=== PATIENT | male | born 1940 | race Caucasian/White ===

== ENCOUNTER 2021-05-27 21:32 | Observation (INO) ==
[2021-05-27] MEDS ORDERED: ACETAMINOPHEN 1,000 MG/100 ML VIAL IV STA (21:42)
[2021-05-27] MEDS ORDERED: SODIUM CHLORIDE 0.9% 1000ML 1,000 ML IV ONE (21:42)
[2021-05-27 22:21] LABS: Basophils # (auto) 0.02 K/uL (0-0.2); Basophils % (auto) 0.2 %; Eosinophils # (auto) 0.02 K/uL (0-0.5); Eosinophils % (auto) 0.2 %; Hematocrit (blood only) 35.8 % (42-52); Hemoglobin 11.2 g/dL (14.0-18.0); Immature Granulocytes # (auto) 0.01 K/uL (0.00-0.02); Immature Granulocytes % (auto) 0.1 %; Lymphocytes # (auto) 0.58 K/uL (1.2-3.4); Lymphocytes % (auto) 6.2 %; Mean Corpuscular Hemoglobin 23.7 pg (25-34); Mean Corpuscular Hgb Conc 31.3 g/dL (32-36); Mean Corpuscular Volume 75.8 fL (80-100); Mean Platelet Volume 9.9 fL (7.4-10.4); Monocytes # (auto) 1.18 K/uL (0.11-0.59); Monocytes % (auto) 12.6 %; Neutrophils # (auto) 7.52 K/uL (1.4-6.5); Neutrophils % (auto) 80.7 %; Platelet Count 265 K/uL (130-400); RDW Coefficient of Variation 18.3 % (11.5-14.5); RDW Standard Deviation 51.3 fL (36.4-46.3); Red Blood Count 4.72 M/uL (4.7-6.1); White Blood Count 9.33 K/uL (4.8-10.8)
[2021-05-27] MEDS ORDERED: PIPERACILL/TAZOBAC CONSULT ACTIVE PRN (22:30)
[2021-05-27] MEDS ORDERED: PIPERACILLIN/TAZOBACTAM 4.5 GM/120 ML BAG IV ONE (22:30)
[2021-05-27 22:33] LABS: INR 1.1 (0.9-1.1); Partial Thromboplastin Time 25.1 Seconds (21.0-31.0); Prothrombin Time 10.9 Seconds (9.0-12.0)
[2021-05-27 22:41] LABS: Albumin Level 3.5 gm/dl (3.4-5.0); BUN Creatinine Ratio 17.1 (10-20); Calcium 8.9 mg/dl (8.5-10.1); Creatinine Clr Calc Pharmacy 65.7 ml/min; Est GFR (Non-African American) 56.9 ml/min; Potassium 4.2 mmol/L (3.5-5.1)
[2021-05-27 22:55] LABS: Albumin Globulin Ratio 0.9 (0.9-2); Bilirubin,Total 0.5 mg/dl (0.2-1); Globulin 3.8 gm/dl (2.5-4.0); Total Protein 7.3 gm/dl (6.4-8.2); Troponin I 0.126 ng/ml (0-0.045)
[2021-05-27 23:02] LABS: Base Excess ABG 3.9 mEq/L (-9-1.8); HCO3 ABG 29 mmol/L (19-24); Oxygen Saturation ABG 96.6 % (90-95); PCO2 ABG 47 mmHg (35-46); PO2 ABG 85 mmHg (80-95); pH ABG 7.41 (7.35-7.45)
[2021-05-27 23:03] LABS: Allen Test Pos (Pos)
[2021-05-27] MEDS ORDERED: OPTIRAY 320 125ml IV ONE (23:45)
[2021-05-28 01:00] LABS: Appearance Urine Cloudy (Clear); Bacteria Urine Automated Negative (Negative); Bilirubin Urine Negative (Negative); Blood Urine 1+ (Negative); Color Urine Yellow; Glucose Urine UA Negative (Negative); Ketones Urine Negative (Negative); Leukocyte Esterase Urine 3+ (Negative); Nitrite Urine Positive (Negative); Specific Gravity Urine > 1.045 (1.000-1.030); Urobilinogen Urine Negative (Negative); WBC Urine Automated >30 /hpf (0-5); pH Urine 7.5 (4.5-7.5)
[2021-05-28 01:13] LABS: Protein Urine Trace (Negative)
[2021-05-28 01:14] LABS: Cast Urine Automated 0 /lpf (0-5)
[2021-05-28] MEDS ORDERED: DOXYCYCLINE HYCLATE 100 MG in DEXTROSE 5% 100 ML IV STA (01:21)
[2021-05-28] MEDS ORDERED: methylPREDNISolone 20 MG in SYRINGE 0 ML IV STA (01:21)
[2021-05-28] MEDS ORDERED: INSULIN GLARGINE SOLOSTAR 100 UNITS/ML 3 ML PEN SC STA (01:26)
[2021-05-28] MEDS ORDERED: SODIUM CHLORIDE 0.9% 1000ML 1,000 ML IV ONE (01:35)
--- NOTE | 2021-05-28 01:35 | History & Physical Report ---
Date of Service May 28, 2021 Assessment & Plan (1) Sepsis: Plan: Multifactorial : Complicated bronchitis Complicated UTI rule out obstructive uropathy given back pain complaints hx CAD status post stent Troponin elevation secondary to sepsis hypertension, slight elevated hyperlipidemia on statin Rx DM2 insulin requiring, elevated BSG, unknown baseline Anemia, unknown duration, stool FOBT done at the ER was negative. past tobacco abuse Medical telemetry Doxycycline for complicated bronchitis; steroid 1 dose, nebs RTC given hypoxemia Cefepime for complicated UTI CT abdomen pelvis RE back pain rule out obstructive uropathy Follow troponin, TTE if with progression Basal insulin, ISS BG goal 1 10-1 40, carb count coverage, check hemoglobin A1c Anemia work-up, transfuse PRBC if hemoglobin less than 8 and or for symptomatic anemia DVT prophylaxis. [employer] subcu Full code Text document was generated using [employer] voice recognition software. It may contain grammatical or spelling errors. Kindly contact undersigned for clarification of any documentation item in question. History of Present Illness Chief Complaint: Not sure as per patient Primary Care Provider: ANNY Romero History obtained from patient and records. Patient is a fair historian. Medical history significant for CAD status post stent, hypertension, hyperlipidemia, DM2 insulin requiring, past tobacco abuse. Patient not sure why he was brought to the emergency room. As per documentation, patient with fever, cough, malaise of 1 day. Antibiotics initiated at correction[facility] facility. Possible COVID-19 contacts. Patient noted to be hypoxemic at correctional facility. Patient complaining of achy back pain off a few days duration. Denies chest pain, unusual S OB. Denies black/bloody stools. At the ER, patient given Zosyn for sepsis. Medical History as above Surgical History : Appendectomy Family History : Heart disease Personal/Social history : Past tobacco abuse, no EtOH intake, shelter inmate Allergies Allergy/AdvReac Type Severity Reaction Status Date / Time Sulfa (Sulfonamide Allergy Unknown Verified 05/27/21 23:16 Antibiotics) Home Medications Medication Instructions Recorded Confirmed Type acetaminophen 500 mg tablet 1,000 mg PO TID PRN 05/27/21 05/27/21 History (Tylenol Extra Strength) amoxicillin 500 mg-potassium 1 tab PO BID 05/27/21 05/27/21 History clavulanate 125 mg tablet (Augmentin) aspirin 81 mg tablet,delayed 81 mg PO DAILY 05/27/21 05/27/21 History release azithromycin 250 mg tablet 250 mg PO DAILY 05/27/21 05/27/21 History bismuth subsalicylate 262 mg 1 tab PO BID 05/27/21 05/27/21 History chewable tablet (Pepto-Bismol) bumetanide 2 mg tablet 2 mg PO DAILY 05/27/21 05/27/21 History cholecalciferol (vitamin D3) 25 25 mcg PO DAILY 05/27/21 05/27/21 History mcg (1,000 unit) tablet (Vitamin D3) ciclesonide 160 mcg/actuation 2 puff INHALATION BID 05/27/21 05/27/21 History aerosol inhaler (Alvesco) clopidogrel 75 mg tablet (Plavix) 75 mg PO DAILY 05/27/21 05/27/21 History cyanocobalamin (vitamin B-12) 1,000 mcg SUBCUT MO 05/27/21 05/27/21 History 1,000 mcg/mL injection solution doxazosin 8 mg tablet (Cardura) 8 mg PO HS 05/27/21 05/27/21 History gabapentin 600 mg tablet 1,200 mg PO HS 05/27/21 05/27/21 History insulin NPH-regular human 100 12 unit SUBCUT BID 05/27/21 05/27/21 History unit/mL (70-30) subcutaneous cartridge insulin regular human 100 unit/mL 1 sliding scale dose SUBCUT 05/27/21 05/27/21 History injection solution (Novolin R USEASDIRECTD Regular U-100 Insulin) ipratropium 0.5 mg-albuterol 3 mg 3 ml INHALATION QID 05/27/21 05/27/21 History (2.5 mg base)/3 mL nebulization soln isosorbide mononitrate 30 mg 30 mg PO DAILY 05/27/21 05/27/21 History tablet,extended release 24 hr latanoprost 0.005 % eye drops 1 drp OPHTHALMIC (EYE) PM 05/27/21 05/27/21 Histo ry levalbuterol tartrate 45 2 inh INHALATION Q6H PRN 05/27/21 05/27/21 History mcg/actuation aerosol inhaler (Xopenex HFA) lisinopril 10 mg tablet 10 mg PO DAILY 05/27/21 05/27/21 History metoprolol tartrate 25 mg tablet 25 mg PO BID 05/27/21 05/27/21 History omeprazole 20 mg tablet,delayed 20 mg PO DAILY 05/27/21 05/27/21 History release ondansetron HCl 4 mg tablet 4 mg PO Q8H PRN 05/27/21 05/27/21 History (Zofran) rosuvastatin 10 mg tablet (Crestor) 10 mg PO DAILY 05/27/21 05/27/21 History vitamin B complex 1 tab PO BID 05/27/21 05/27/21 History zinc sulfate 220 mg capsule 220 mg PO DAILY 05/27/21 05/27/21 History Past Med/Surg History Medical History CHF (congestive heart failure) COPD (chronic obstructive pulmonary disease) Diabetes High blood pressure Surgical History No pertinent past surgical history Social History Smoking Status: Former smoker Tobacco Type: Cigarettes Hx Alcohol Use: No Hx Substance Use: No Preferred Language: Hebrew Communication Ability: Effective [employer] Supervisor Required: No Beliefs That Will Affect Care: None Current Living Situation: Other Current Living Situation Comment: [facility] Other Information That Helps Us Care for You: No Feels Safe at Home: Yes Safety Concerns: Feels Safe At This Time Assistive Devices: Walker and Wheelchair Review of Systems Review of Systems: As per HPI, all 10 systems reviewed, all other ROS negative Physical Exam Physical Exam: GENERAL: Comfortable, morbidly obese, hard of hearing, no respiratory distress SKIN: Pallor , warm HEENT: Pale palpebral conjunctivae, no ptosis, dry buccal mucosa, nasal cannula in place NECK : Supple, short neck, no tenderness CHEST : Decreased breath sounds, occasional expiratory wheezes, no tenderness HEART : RRR, no obvious murmurs ABDOMEN: Some distention, nontender RECTAL : Intact sphincter, dark brown stool (FOBT negative) EXTREMITIES : Minimal LE swelling, no LE tenderness, no other conspicuous deformities noted NEUROLOGIC : Coherent, no facial asymmetry, hard of hearing, no other gross focality Results & Data Results & Data ([facility]) Vital Signs (Past 12 Hours) Vital Signs Temp Pulse Resp BP Pulse Ox 05/28/21 01:00 82 17 134/94 97 05/28/21 00:30 81 15 153/85 H 98 05/28/21 00:00 79 19 167/101 H 98 05/27/21 23:31 103/70 05/27/21 23:00 155/79 H 97 05/27/21 22:30 147/90 H 95 05/27/21 22:17 37.7 C H 84 16 155/94 H 94 05/27/21 22:02 84 14 146/91 H 94 05/27/21 21:53 89 16 94 05/27/21 21:52 89 20 155/94 H 94 Laboratory Results Laboratory Results WBC 9.33 K/uL (4.8-10.8) 05/27/21 21:58 RBC 4.72 M/uL (4.7-6.1) 05/27/21 21:58 Hgb 11.2 g/dL (14.0-18.0) L 05/27/21 21:58 Hct 35.8 % (42-52) L 05/27/21 21:58 MCV 75.8 fL (80-100) L 05/27/21 21:58 MCH 23.7 pg (25-34) L 05/27/21 21:58 MCHC 31.3 g/dL (32-36) L 05/27/21 21:58 RDW Std Deviation 51.3 fL (36.4-46.3) H 05/27/21 21:58 RDW Coeff of Sandrita 18.3 % (11.5-14.5) H 05/27/21 21:58 Plt Count 265 K/uL (130-400) 05/27/21 21:58 MPV 9.9 fL (7.4-10.4) 05/27/21 21:58 Immature Gran % (Auto) 0.1 % 05/27/21 21:58 Neut % (Auto) 80.7 % 05/27/21 21:58 Lymph % (Auto) 6.2 % 05/27/21 21:58 [place] % (Auto) 12.6 % 05/27/21 21:58 Eos % (Auto) 0.2 % 05/27/21 21:58 Baso % (Auto) 0.2 % 05/27/21 21:58 Neut # (Auto) 7.52 K/uL (1.4-6.5) H 05/27/21 21:58 Lymph # (Auto) 0.58 K/uL (1.2-3.4) L 05/27/21 21:58 [place] # (Auto) 1.18 K/uL (0.11-0.59) H 05/27/21 21:58 Eos # (Auto) 0.02 K/uL (0-0.5) 05/27/21 21:58 Baso # (Auto) 0.02 K/uL (0-0.2) 05/27/21 21:58 Immature Gran # (Auto) 0.01 K/uL (0.00-0.02) 05/27/21 21:58 PT 10.9 Seconds (9.0-12.0) 05/27/21 21:58 INR 1.1 (0.9-1.1) 05/27/21 21:58 APTT 25.1 Seconds (21.0-31.0) 05/27/21 21:58 PTT Ratio 1.0 05/27/21 21:58 ABG pH 7.41 (7.35-7.45) 05/27/21 22:51 ABG pCO2 47 mmHg (35-46) H 05/27/21 22:51 ABG pO2 85 mmHg (80-95) 05/27/21 22:51 ABG HCO3 29 mmol/L (19-24) H 05/27/21 22:51 ABG O2 Saturation 96.6 % (90-95) H 05/27/21 22:51 ABG Base Excess 3.9 mEq/L (-9-1.8) H 05/27/21 22:51 Epifanio Test Pos (Pos) 05/27/21 22:51 Barometric Pressure 734.3 mm/Hg 05/27/21 22:51 Oxygen Given 6L 05/27/21 22:51 Sodium 138 mmol/L (136-145) 05/27/21 21:58 Potassium 4.2 mmol/L (3.5-5.1) 05/27/21 21:58 Chloride 103 mmol/L (98-107) 05/27/21 21:58 Carbon Dioxide 30 mmol/L (21-32) 05/27/21 21:58 Anion Gap 4.0 (3-11) 05/27/21 21:58 BUN 20 mg/dl (7-18) H 05/27/21 21:58 Creatinine 1.19 mg/dl (0.6-1.4) 05/27/21 21:58 Est Cr Clr Drug Dosing 65.7 ml/min 05/27/21 21:58 Est GFR ( Amer) 66.0 ml/min 05/27/21 21:58 Est GFR (Non-Af Amer) 56.9 ml/min 05/27/21 21:58 BUN/Creatinine Ratio 17.1 (10-20) 05/27/21 21:58 Glucose 161 mg/dl (70-99) H 05/27/21 21:58 Lactate 1.7 mmol/L (0.4-2.0) 05/27/21 21:58 Calcium 8.9 mg/dl (8.5-10.1) 05/27/21 21:58 Magnesium 2.0 mg/dl (1.8-2.4) 05/27/21 21:58 Total Bilirubin 0.5 mg/dl (0.2-1) 05/27/21 21:58 AST 21 U/L (15-37) 05/27/21 21:58 ALT 26 U/L (12-78) 05/27/21 21:58 Alkaline Phosphatase 50 U/L (45-117) 05/27/21 21:58 Troponin I 0.126 ng/ml (0-0.045) H* 05/27/21 21:58 Total Protein 7.3 gm/dl (6.4-8.2) 05/27/21 21:58 Albumin 3.5 gm/dl (3.4-5.0) 05/27/21 21:58 Globulin 3.8 gm/dl (2.5-4.0) 05/27/21 21:58 Albumin/Globulin Ratio 0.9 (0.9-2) 05/27/21 21:58 Procalcitonin 0.56 ng/ml (0-0.5) H 05/27/21 21:58 Urine Color Yellow 05/28/21 00:47 Urine Appearance Cloudy (Clear) A 05/28/21 00:47 Urine pH 7.5 (4.5-7.5) 05/28/21 00:47 Ur Specific [place] > 1.045 (1.000-1.030) H 05/28/21 00:47 Urine Protein Trace (Negative) H 05/28/21 00:47 Urine Glucose (UA) Negative (Negative) 05/28/21 00:47 Urine Ketones Negative (Negative) 05/28/21 00:47 Urine Blood 1+ (Negative) H 05/28/21 00:47 Urine Nitrite Positive (Negative) A 05/28/21 00:47 Urine Bilirubin Negative (Negative) 05/28/21 00:47 Urine Urobilinogen Negative (Negative) 05/28/21 00:47 Ur Leukocyte Esterase 3+ (Negative) H 05/28/21 00:47 Urine WBC (Auto) >30 /hpf (0-5) H 05/28/21 00:47 Urine RBC (Auto) 5-10 /hpf (0-4) H 05/28/21 00:47 U Hyaline Cast (Auto) 0 /lpf (0-5) 05/28/21 00:47 U Epithel Cells (Auto) 10-20 /lpf (0-5) H 05/28/21 00:47 Urine Bacteria (Auto) Negative (Negative) 05/28/21 00:47 Urine Yeast Not Reportable 05/28/21 00:47 COVID-19 Eval Order Covid19 at [facility] 05/27/21 21:50 SARS-CoV-2 (PCR) NEGATIVE (Negative) 05/27/21 21:[address] abdomen pelvis initial read: No evidence of acute pulmonaryembolism. No thoracic aortic aneurysm. Coronaryarteryatherosclerosis. No significant pericardial effusion. Moderate hiatal hernia. Emphysema. Minor right basilar atelectasis. No consolidation, effusion, or pneumothorax. No acute osseous findings. EKG as per my interpretation rate 85, NSR, RAD, no ischemia Code Status & VTE Plan VTE Prophylaxis Plan VTE Prophylaxis will be ordered: Yes (1) Sepsis Sepsis acute organ dysfunction status: unspecified Sepsis type: sepsis due to unspecified organism Qualified Code(s): A41.9 - Sepsis, unspecified organism
--- NOTE | 2021-05-28 03:21 | Emergency Department Note ---
History of Present Illness General Chief complaint: Fever Time Seen by Provider: 05/27/21 21:38 History of Present Illness Maximum Pain Intensity: 3 This 80-year-old presents presents to the ER complaining of fever, cough, malaise for the past day who sats are in the high 80s at the present and has received the J & J vaccine back in February Location: Generalized Quality: Weak Severity: Moderate Duration: Today Timing: Today Context: Long Term was concerned and sent him in Modifying factors: better with rest; worse with activity Patient states he does not normally wear oxygen. Patient denies chest pain, abdominal pain, vomiting, diarrhea, sore throat. Other people at the long-term have Covid currently. Home Medications Medication Instructions Recorded Confirmed Type acetaminophen 500 mg tablet 1,000 mg PO TID PRN 05/27/21 05/27/21 History (Tylenol Extra Strength) amoxicillin 500 mg-potassium 1 tab PO BID 05/27/21 05/27/21 History clavulanate 125 mg tablet (Augmentin) aspirin 81 mg tablet,delayed 81 mg PO DAILY 05/27/21 05/27/21 History release azithromycin 250 mg tablet 250 mg PO DAILY 05/27/21 05/27/21 History bismuth subsalicylate 262 mg 1 tab PO BID 05/27/21 05/27/21 History chewable tablet (Pepto-Bismol) bumetanide 2 mg tablet 2 mg PO DAILY 05/27/21 05/27/21 History cholecalciferol (vitamin D3) 25 25 mcg PO DAILY 05/27/21 05/27/21 History mcg (1,000 unit) tablet (Vitamin D3) ciclesonide 160 mcg/actuation 2 puff INHALATION BID 05/27/21 05/27/21 History aerosol inhaler (Alvesco) clopidogrel 75 mg tablet (Plavix) 75 mg PO DAILY 05/27/21 05/27/21 History cyanocobalamin (vitamin B-12) 1,000 mcg SUBCUT MO 05/27/21 05/27/21 History 1,000 mcg/mL injection solution doxazosin 8 mg tablet (Cardura) 8 mg PO HS 05/27/21 05/27/21 History gabapentin 600 mg tablet 1,200 mg PO HS 05/27/21 05/27/21 History insulin NPH-regular human 100 12 unit SUBCUT BID 05/27/21 05/27/21 History unit/mL (70-30) subcutaneous cartridge insulin regular human 100 unit/mL 1 sliding scale dose SUBCUT 05/27/21 05/27/21 History injection solution (Novolin R USEASDIRECTD Regular U-100 Insulin) ipratropium 0.5 mg-albuterol 3 mg 3 ml INHALATION QID 05/27/21 05/27/21 History (2.5 mg base)/3 mL nebulization soln isosorbide mononitrate 30 mg 30 mg PO DAILY 05/27/21 05/27/21 History tablet,extended release 24 hr latanoprost 0.005 % eye drops 1 drp OPHTHALMIC (EYE) PM 05/27/21 05/27/21 History levalbuterol tartrate 45 2 inh INHALATION Q6H PRN 05/27/21 05/27/21 History mcg/actuation aerosol inhaler (Xopenex HFA) lisinopril 10 mg tablet 10 mg PO DAILY 05/27/21 05/27/21 History metoprolol tartrate 25 mg tablet 25 mg PO BID 05/27/21 05/27/21 History omeprazole 20 mg tablet,delayed 20 mg PO DAILY 05/27/21 05/27/21 History release ondansetron HCl 4 mg tablet 4 mg PO Q8H PRN 05/27/21 05/27/21 History (Zofran) rosuvastatin 10 mg tablet (Crestor) 10 mg PO DAILY 05/27/21 05/27/21 History vitamin B complex 1 tab PO BID 05/27/21 05/27/21 History zinc sulfate 220 mg capsule 220 mg PO DAILY 05/27/21 05/27/21 History Allergies Allergy/AdvReac Type Severity Reaction Status Date / Time Sulfa (Sulfonamide Allergy Unknown Verified 05/27/21 23:16 Antibiotics) Past Med/Surg History Medical History CHF (congestive heart failure) COPD (chronic obstructive pulmonary disease) Diabetes High blood pressure Surgical History No pertinent past surgical history Social History Smoking Status: Former smoker Tobacco Type: Cigarettes Hx Alcohol Use: No Hx Substance Use: No Preferred Language: Tanzanian Communication Ability: Effective Mechanic Senior Required: No Beliefs That Will Affect Care: None Current Living Situation: Other Current Living Situation Comment: Long Term Other Information That Helps Us Care for You: No Feels Safe at Home: Yes Safety Concerns: Feels Safe At This Time Assistive Devices: Walker and Wheelchair Review of Systems A total of 10 systems reviewed and were otherwise negative Physical Exam Vital Signs Vital Signs - 24 hr 05/27/21 21:52 05/27/21 21:53 05/27/21 22:02 Temperature Temperature Source Pulse Rate 89 89 84 Pulse Rate from SpO2 Sensor 88 84 Pulse Rhythm Regular Pulse Strength Respiratory Rate 20 16 14 Respiratory Effort / Characteristics Respiratory Depth Respiratory Pattern Blood Pressure 155/94 H 146/91 H Blood Pressure Mean 114 109 Blood Pressure Position Pulse Oximetry 94 94 94 Oxygen Delivery Method Nasal Cannula Nasal Cannula Nasal Cannula Oxygen Flow Rate 4 4 4 Sepsis Recent Fever Within 48 Hours Sepsis New/Unexplained Change in Mental Status Sepsis Action Taken by Nursing 05/27/21 22:17 05/27/21 22:30 05/27/21 23:00 Temperature 37.7 C H Temperature Source Oral Pulse Rate 84 Pulse Rate from SpO2 Sensor 86 85 Pulse Rhythm Regular Pulse Strength Normal Respiratory Rate 16 Respiratory Effort / Characteristics Non-Labored Spontaneous Respiratory Depth Normal Respiratory Pattern Regular Blood Pressure 155/94 H 147/90 H 155/79 H Blood Pressure Mean 114 109 104 Blood Pressure Position Lying Pulse Oximetry 94 95 97 Oxygen Delivery Method Nasal Cannula Nasal Cannula Oxygen Flow Rate 4 4 Sepsis Recent Fever Within 48 Hours Yes Sepsis New/Unexplained Change in Mental Status No Sepsis Action Taken by Nursing No Action Required 05/27/21 23:30 05/27/21 23:31 05/28/21 00:00 Temperature Temperature Source Pulse Rate 79 Pulse Rate from SpO2 Sensor 80 Pulse Rhythm Pulse Strength Respiratory Rate 19 Respiratory Effort / Characteristics Non-Labored Respiratory Depth Respiratory Pattern Blood Pressure 103/70 167/101 H Blood Pressure Mean 81 123 Blood Pressure Position Pulse Oximetry 98 Oxygen Delivery Method Oxygen Flow Rate Sepsis Recent Fever Within 48 Hours Sepsis New/Unexplained Change in Mental Status Sepsis Action Taken by Nursing 05/28/21 00:30 05/28/21 01:00 Temperature Temperature Source Pulse Rate 81 82 Pulse Rate from SpO2 Sensor 82 82 Pulse Rhythm Pulse Strength Respiratory Rate 15 17 Respiratory Effort / Characteristics Respiratory Depth Respiratory Pattern Blood Pressure 153/85 H 134/94 Blood Pressure Mean 107 107 Blood Pressure Position Pulse Oximetry 98 97 Oxygen Delivery Method Oxygen Flow Rate Sepsis Recent Fever Within 48 Hours Sepsis New/Unexplained Change in Mental Status Sepsis Action Taken by Nursing VITALS: Vitals are noted on the nurse's note and reviewed by myself. Vital signs febrile and hypoxic. GENERAL: Elderly male in [facility], in no acute distress SKIN: Chronic venous stasis to the lower extremities, unchanged per patient, the rest of the skin was without rashes, or bruising. There is no tenting of the skin. Capillary reflex less than 2 seconds. HEAD: Normocephalic atraumatic. EARS: External auditory canals clear, tympanic membranes pearly banks without erythema or effusion bilaterally. EYES: Pupils equal round and reactive to light and accommodation. Conjunctivae without injection, sclerae without icterus. Extraocular movements intact. NOSE: Patent, turbinates without inflammation or discharge. MOUTH: Mucous membranes mildly dry. Pharynx without erythema or exudate. Uvula midline. Airway patent. Tongue does not deviate. NECK: Supple without nuchal rigidity. No lymphadenopathy. No thyromegaly. Cervical spine is nontender. No JVD. HEART: Regular rate and rhythm LUNGS: Clear to auscultation bilaterally without wheezes, rales or rhonchi. No retractions or accessory muscle use. ABDOMEN: Positive bowel sounds x 4. Normal tympanic percussion. Soft, nontender, without masses or organomegaly. Bone sign negative. No guarding or rebound tenderness. No CVA tenderness MUSCULOSKELETAL: No muscle atrophy noted. NEURO: Patient was alert and oriented to person place and time. Normal sensation to light and sharp touch. No focal neurological deficits. Course Administered Medications Aspirin (Aspirin 81 Mg Ectab) 81 mg PO DAILY [facility] Stop: 06/27/21 08:59 Last Admin: 05/28/21 09:03 Dose: 81 mg Documented by: [id number] Clopidogrel Bisulfate (Clopidogrel Bisulfate 75 Mg Tab) 75 mg PO DAILY [facility] Stop: 06/27/21 08:59 Last Admin: 05/28/21 09:03 Dose: 75 mg Documented by: [id number] Doxycycline Hyclate (Doxycycline Hyclate 100 Mg Cap) 100 mg PO BID MEDNOZA; Gary col Stop: 06/04/21 11:59 Last Admin: 05/28/21 09:02 Dose: 100 mg Documented by: [id number] Enoxaparin Sodium (Enoxaparin Inj 40 Mg/0.4 Ml Syr) 40 mg SQ QAM [facility] Stop: 06/27/21 08:59 Last Admin: 05/28/21 09:38 Dose: 40 mg Documented by: [id number] Sodium Chloride (Nss 1000ml) 1,000 mls @ 60 mls/hr IV .[id number] ONE Stop: 05/28/21 18:14 Last Admin: 05/28/21 05:20 Dose: 60 mls/hr Documented by: [id number] Cefepime HCl 2,000 mg/ Syringe 20 mls @ 5 mls/min IV Q8H [facility]; Protocol Stop: 06/04/21 04:59 Last Admin: 05/28/21 05:13 Dose: 5 mls/min Documented by: [id number] Insulin Aspart (Insulin Aspart 100 Units/Ml 3 Ml Pen) 0 units SC ACHS [facility] Stop: 06/27/21 04:59 Last Admin: 05/28/21 09:38 Dose: 9 units Documented by: [id number] Cosigned by: [id number] Admin: 05/28/21 05:44 Dose: 4 units Documented by: [id number] Cosigned by: [id number] Insulin Glargine (Insulin Glargine Solostar 100 Units/Ml 3 Ml Pen) 10 units SC BID [facility] Stop: 06/27/21 08:59 Last Admin: 05/28/21 09:39 Dose: 10 units Documented by: [id number] Cosigned by: [id number] Ipratropium George (Ipratropium [place] Neb Soln 0.02% 2.5 Ml Vial) 0.5 mg INH Q6R [facility] Stop: 06/27/21 06:59 Last Admin: 05/28/21 13:08 Dose: 0.5 mg Documented by: [id number] Admin: 05/28/21 07:31 Dose: 0.5 mg Documented by: [id number] Isosorbide Mononitrate (Isosorbide [place] Extended Rel 30 Mg Tabcr) 30 mg PO DAILY [facility] Stop: 06/27/21 08:59 Last Admin: 05/28/21 09:03 Dose: 30 mg Documented by: [id number] Levalbuterol HCl (Levalbuterol 1.25mg/0.5ml Neb) 1.25 mg INH Q6R [facility] Stop: 06/27/21 06:59 Last Admin: 05/28/21 13:08 Dose: 1.25 mg Documented by: [id number] Admin: 05/28/21 07:31 Dose: 1.25 mg Documented by: [id number] Lisinopril (Lisinopril 20 Mg Tab) 20 mg PO DAILY [facility] Stop: 06/27/21 06:44 Last Admin: 05/28/21 09:38 Dose: 20 mg Documented by: [id number] Metoprolol Tartrate (Metoprolol Tartrate 25 Mg Tab) 25 mg PO BID [facility] Stop: 06/27/21 05:29 Last Admin: 05/28/21 05:52 Dose: 25 mg Documented by: [id number] Pantoprazole Sodium (Pantoprazole 40 Mg Tab) 40 mg PO DAILY [facility]; Protocol Stop: 06/27/21 08:59 Last Admin: 05/28/21 09:01 Dose: 40 mg Documented by: [id number] Rosuvastatin Calcium (Rosuvastatin Calcium 10 Mg Tab) 10 mg PO DAILY [facility] Stop: 06/27/21 08:59 Last Admin: 05/28/21 09:02 Dose: 10 mg Documented by: [id number] Vitamin B Complex (Vitamin B Complex Tab) 1 tab PO DAILY [facility] Stop: 06/27/21 08:59 Last Admin: 05/28/21 09:02 Dose: 1 tab Documented by: [id number] Discontinued Medications Sodium Chloride (Nss 1000ml) 1,000 mls @ 999 mls/hr IV .[id number] ONE Stop: 05/27/21 22:42 Last Infusion: 05/27/21 23:30 Dose: 0 mls/hr Documented by: [id number] Admin: 05/27/21 22:02 Dose: 999 mls/hr Documented by: [id number] Acetaminophen (Ofirmev) 1,000 mg in 100 mls @ 400 mls/hr IV NOW STA Stop: 05/27/21 21:56 Last Infusion: 05/27/21 22:42 Dose: 0 mls/hr Documented by: [id number] Admin: 05/27/21 22:11 Dose: 400 mls/hr Documented by: [id number] Piperacillin Sod/Tazobactam Sod (Zosyn) 4.5 gm in 120 mls @ 240 mls/hr IV NOW ONE Stop: 05/27/21 22:59 Last Infusion: 08/03/21 23:36 Dose: 0 mls/hr Documented by: [id number] Admin: 05/27/21 23:06 Dose: 240 mls/hr Documented by: [id number] Methylprednisolone 20 mg/ (Syringe) 0.32 mls @ 1.5 mls/min IV NOW STA Stop: 05/28/21 01:22 Last Admin: 05/28/21 01:46 Dose: 1.5 mls/min Documented by: [id number] Doxycycline Hyclate 100 mg/ (Dextrose) 110 mls @ 50 mls/hr IV NOW STA Stop: 05/28/21 03:32 Last Infusion: 05/28/21 05:23 Dose: 0 mls/hr Documented by: [id number] Admin: 05/28/21 01:46 Dose: 50 mls/hr Documented by: [id number] Insulin Glargine (Insulin Glargine Solostar 100 Units/Ml 3 Ml Pen) 10 units SC NOW STA Stop: 05/28/21 01:27 Last Admin: 05/28/21 01:34 Dose: Not Given Documented by: [id number] Insulin Glargine (Insulin Glargine Solostar 100 Units/Ml 3 Ml Pen) 10 units SC ONE ONE Stop: 05/28/21 05:01 Last Admin: 05/28/21 05:47 Dose: 10 units Documented by: [id number] Cosigned by: [id number] Ioversol (Optiray 320 125ml) 120 ml IV ONCE ONE Stop: 05/27/21 23:46 Last Admin: 05/27/21 23:50 Dose: 120 ml Documented by: [id number] Medical Decision Making Medical Records Attestation: I reviewed the patient's medical records. Home Medications Current Medication List: was personally reviewed by me Laboratory Data Attestation: I reviewed the patient's lab results. Result diagrams: 05/28/21 05:31 05/28/21 05:31 Lab Results 05/27/21 05/27/21 05/27/21 Range/Units 21:50 21:50 21:58 WBC (4.8-10.8) K/uL RBC (4.7-6.1) M/uL Hgb (14.0-18.0) g/dL Hct (42-52) % MCV (80-100) fL MCH (25-34) pg MCHC (32-36) g/dL RDW Std Deviation (36.4-46.3) fL RDW Coeff of Sandrita (11.5-14.5) % Plt Count (130-400) K/uL MPV (7.4-10.4) fL Immature Gran % (Auto) % Neut % (Auto) % Lymph % (Auto) % [place] % (Auto) % Eos % (Auto) % Baso % (Auto) % Neut # (Auto) (1.4-6.5) K/uL Lymph # (Auto) (1.2-3.4) K/uL [place] # (Auto) (0.11-0.59) K/uL Eos # (Auto) (0-0.5) K/uL Baso # (Auto) (0-0.2) K/uL Immature Gran # (Auto) (0.00-0.02) K/uL PT (9.0-12.0) Seconds INR (0.9-1.1) APTT (21.0-31.0) Seconds PTT Ratio ABG pH (7.35-7.45) ABG pCO2 (35-46) mmHg ABG pO2 (80-95) mmHg ABG HCO3 (19-24) mmol/L ABG O2 Saturation (90-95) % ABG Base Excess (-9-1.8) mEq/L Epifanio Test (Pos) Barometric Pressure mm/Hg Oxygen Given Sodium 138 (136-145) mmol/L Potassium 4.2 (3.5-5.1) mmol/L Chloride 103 (98-107) mmol/L Carbon Dioxide 30 (21-32) mmol/L Anion Gap 4.0 (3-11) BUN 20 H (7-18) mg/dl Creatinine 1.19 (0.6-1.4) mg/dl Est Cr Clr Drug Dosing 65.7 ml/min Est GFR ( Amer) 66.0 ml/min Est GFR (Non-Af Amer) 56.9 ml/min BUN/Creatinine Ratio 17.1 (10-20) Glucose 161 H (70-99) mg/dl Estimat Average Glucose mg/dl Hemoglobin A1c (4.5-5.6) % Lactate (0.4-2.0) mmol/L Calcium 8.9 (8.5-10.1) mg/dl Magnesium 2.0 (1.8-2.4) mg/dl Total Bilirubin 0.5 (0.2-1) mg/dl AST 21 (15-37) U/L ALT 26 (12-78) U/L Alkaline Phosphatase 50 (45-117) U/L Troponin I 0.126 H* (0-0.045) ng/ml Total Protein 7.3 (6.4-8.2) gm/dl Albumin 3.5 (3.4-5.0) gm/dl Globulin 3.8 (2.5-4.0) gm/dl Albumin/Globulin Ratio 0.9 (0.9-2) Procalcitonin (0-0.5) ng/ml Urine Color Urine Appearance (Clear) Urine pH (4.5-7.5) Ur Specific [place] (1.000-1.030) Urine Protein (Negative) Urine Glucose (UA) (Negative) Urine Ketones (Negative) Urine Blood (Negative) Urine Nitrite (Negative) Urine Bilirubin (Negative) Urine Urobilinogen (Negative) Ur Leukocyte Esterase (Negative) Urine WBC (Auto) (0-5) /hpf Urine RBC (Auto) (0-4) /hpf U Hyaline Cast (Auto) (0-5) /lpf U Epithel Cells (Auto) (0-5) /lpf Urine Bacteria (Auto) (Negative) Urine Yeast COVID-19 Eval Order Covid19 at [facility] SARS-CoV-2 (PCR) NEGATIVE (Negative) 05/27/21 05/27/21 05/27/21 Range/Units 21:58 21:58 21:58 WBC 9.33 (4.8-10.8) K/uL RBC 4.72 (4.7-6.1) M/uL Hgb 11.2 L (14.0-18.0) g/dL Hct 35.8 L (42-52) % MCV 75.8 L (80-100) fL MCH 23.7 L (25-34) pg MCHC 31.3 L (32-36) g/dL RDW Std Deviation 51.3 H (36.4-46.3) fL RDW Coeff of Sandrita 18.3 H (11.5-14.5) % Plt Count 265 (130-400) K/uL MPV 9.9 (7.4-10.4) fL Immature Gran % (Auto) 0.1 % Neut % (Auto) 80.7 % Lymph % (Auto) 6.2 % [place] % (Auto) 12.6 % Eos % (Auto) 0.2 % Baso % (Auto) 0.2 % Neut # (Auto) 7.52 H (1.4-6.5) K/uL Lymph # (Auto) 0.58 L (1.2-3.4) K/uL [place] # (Auto) 1.18 H (0.11-0.59) K/uL Eos # (Auto) 0.02 (0-0.5) K/uL Baso # (Auto) 0.02 (0-0.2) K/uL Immature Gran # (Auto) 0.01 (0.00-0.02) K/uL PT 10.9 (9.0-12.0) Seconds INR 1.1 (0.9-1.1) APTT 25.1 (21.0-31.0) Seconds PTT Ratio 1.0 ABG pH (7.35-7.45) ABG pCO2 (35-46) mmHg ABG pO2 (80-95) mmHg ABG HCO3 (19-24) mmol/L ABG O2 Saturation (90-95) % ABG Base Excess (-9-1.8) mEq/L Epifanio Test (Pos) Barometric Pressure mm/Hg Oxygen Given Sodium (136-145) mmol/L Potassium (3.5-5.1) mmol/L Chloride (98-107) mmol/L Carbon Dioxide (21-32) mmol/L Anion Gap (3-11) BUN (7-18) mg/dl Creatinine (0.6-1.4) mg/dl Est Cr Clr Drug Dosing ml/min Est GFR ( Amer) ml/min Est GFR (Non-Af Amer) ml/min BUN/Creatinine Ratio (10-20) Glucose (70-99) mg/dl Estimat Average Glucose mg/dl Hemoglobin A1c (4.5-5.6) % Lactate (0.4-2.0) mmol/L Calcium (8.5-10.1) mg/dl Magnesium (1.8-2.4) mg/dl Total Bilirubin (0.2-1) mg/dl AST (15-37) U/L ALT (12-78) U/L Alkaline Phosphatase (45-117) U/L Troponin I (0-0.045) ng/ml Total Protein (6.4-8.2) gm/dl Albumin (3.4-5.0) gm/dl Globulin (2.5-4.0) gm/dl Albumin/Globulin Ratio (0.9-2) Procalcitonin 0.56 H (0-0.5) ng/ml Urine Color Urine Appearance (Clear) Urine pH (4.5-7.5) Ur Specific [place] (1.000-1.030) Urine Protein (Negative) Urine Glucose (UA) (Negative) Urine Ketones (Negative) Urine Blood (Negative) Urine Nitrite (Negative) Urine Bilirubin (Negative) Urine Urobilinogen (Negative) Ur Leukocyte Esterase (Negative) Urine WBC (Auto) (0-5) /hpf Urine RBC (Auto) (0-4) /hpf U Hyaline Cast (Auto) (0-5) /lpf U Epithel Cells (Auto) (0-5) /lpf Urine Bacteria (Auto) (Negative) Urine Yeast COVID-19 Eval Order SARS-CoV-2 (PCR) (Negative) 05/27/21 05/27/21 05/27/21 Range/Units 21:58 21:58 22:51 WBC (4.8-10.8) K/uL RBC (4.7-6.1) M/uL Hgb (14.0-18.0) g/dL Hct (42-52) % MCV (80-100) fL MCH (25-34) pg MCHC (32-36) g/dL RDW Std Deviation (36.4-46.3) fL RDW Coeff of Sandrita (11.5-14.5) % Plt Count (130-400) K/uL MPV (7.4-10.4) fL Immature Gran % (Auto) % Neut % (Auto) % Lymph % (Auto) % [place] % (Auto) % Eos % (Auto) % Baso % (Auto) % Neut # (Auto) (1.4-6.5) K/uL Lymph # (Auto) (1.2-3.4) K/uL [place] # (Auto) (0.11-0.59) K/uL Eos # (Auto) (0-0.5) K/uL Baso # (Auto) (0-0.2) K/uL Immature Gran # (Auto) (0.00-0.02) K/uL PT (9.0-12.0) Seconds INR (0.9-1.1) APTT (21.0-31.0) Seconds PTT Ratio ABG pH 7.41 (7.35-7.45) ABG pCO2 47 H (35-46) mmHg ABG pO2 85 (80-95) mmHg ABG HCO3 29 H (19-24) mmol/L ABG O2 Saturation 96.6 H (90-95) % ABG Base Excess 3.9 H (-9-1.8) mEq/L Epifanio Test Pos (Pos) Barometric Pressure 734.3 mm/Hg Oxygen Given 6L Sodium (136-145) mmol/L Potassium (3.5-5.1) mmol/L Chloride (98-107) mmol/L Carbon Dioxide (21-32) mmol/L Anion Gap (3-11) BUN (7-18) mg/dl Creatinine (0.6-1.4) mg/dl Est Cr Clr Drug Dosing ml/min Est GFR ( Amer) ml/min Est GFR (Non-Af Amer) ml/min BUN/Creatinine Ratio (10-20) Glucose (70-99) mg/dl Estimat Average Glucose 206 mg/dl Hemoglobin A1c 8.8 H (4.5-5.6) % Lactate 1.7 (0.4-2.0) mmol/L Calcium (8.5-10.1) mg/dl Magnesium (1.8-2.4) mg/dl Total Bilirubin (0.2-1) mg/dl AST (15-37) U/L ALT (12-78) U/L Alkaline Phosphatase (45-117) U/L Troponin I (0-0.045) ng/ml Total Protein (6.4-8.2) gm/dl Albumin (3.4-5.0) gm/dl Globulin (2.5-4.0) gm/dl Albumin/Globulin Ratio (0.9-2) Procalcitonin (0-0.5) ng/ml Urine Color Urine Appearance (Clear) Urine pH (4.5-7.5) Ur Specific [place] (1.000-1.030) Urine Protein (Negative) Urine Glucose (UA) (Negative) Urine Ketones (Negative) Urine Blood (Negative) Urine Nitrite (Negative) Urine Bilirubin (Negative) Urine Urobilinogen (Negative) Ur Leukocyte Esterase (Negative) Urine WBC (Auto) (0-5) /hpf Urine RBC (Auto) (0-4) /hpf U Hyaline Cast (Auto) (0-5) /lpf U Epithel Cells (Auto) (0-5) /lpf Urine Bacteria (Auto) (Negative) Urine Yeast COVID-19 Eval Order SARS-CoV-2 (PCR) (Negative) 05/28/21 Range/Units 00:47 WBC (4.8-10.8) K/uL RBC (4.7-6.1) M/uL Hgb (14.0-18.0) g/dL Hct (42-52) % MCV (80-100) fL MCH (25-34) pg MCHC (32-36) g/dL RDW Std Deviation (36.4-46.3) fL RDW Coeff of Sandrita (11.5-14.5) % Plt Count (130-400) K/uL MPV (7.4-10.4) fL Immature Gran % (Auto) % Neut % (Auto) % Lymph % (Auto) % [place] % (Auto) % Eos % (Auto) % Baso % (Auto) % Neut # (Auto) (1.4-6.5) K/uL Lymph # (Auto) (1.2-3.4) K/uL [place] # (Auto) (0.11-0.59) K/uL Eos # (Auto) (0-0.5) K/uL Baso # (Auto) (0-0.2) K/uL Immature Gran # (Auto) (0.00-0.02) K/uL PT (9.0-12.0) Seconds INR (0.9-1.1) APTT (21.0-31.0) Seconds PTT Ratio ABG pH (7.35-7.45) ABG pCO2 (35-46) mmHg ABG pO2 (80-95) mmHg ABG HCO3 (19-24) mmol/L ABG O2 Saturation (90-95) % ABG Base Excess (-9-1.8) mEq/L Epifanio Test (Pos) Barometric Pressure mm/Hg Oxygen Given Sodium (136-145) mmol/L Potassium (3.5-5.1) mmol/L Chloride (98-107) mmol/L Carbon Dioxide (21-32) mmol/L Anion Gap (3-11) BUN (7-18) mg/dl Creatinine (0.6-1.4) mg/dl Est Cr Clr Drug Dosing ml/min Est GFR ( Amer) ml/min Est GFR (Non-Af Amer) ml/min BUN/Creatinine Ratio (10-20) Glucose (70-99) mg/dl Estimat Average Glucose mg/dl Hemoglobin A1c (4.5-5.6) % Lactate (0.4-2.0) mmol/L Calcium (8.5-10.1) mg/dl Magnesium (1.8-2.4) mg/dl Total Bilirubin (0.2-1) mg/dl AST (15-37) U/L ALT (12-78) U/L Alkaline Phosphatase (45-117) U/L Troponin I (0-0.045) ng/ml Total Protein (6.4-8.2) gm/dl Albumin (3.4-5.0) gm/dl Globulin (2.5-4.0) gm/dl Albumin/Globulin Ratio (0.9-2) Procalcitonin (0-0.5) ng/ml Urine Color Yellow Urine Appearance Cloudy A (Clear) Urine pH 7.5 (4.5-7.5) Ur Specific [place] > 1.045 H (1.000-1.030) Urine Protein Trace H (Negative) Urine Glucose (UA) Negative (Negative) Urine Ketones Negative (Negative) Urine Blood 1+ H (Negative) Urine Nitrite Positive A (Negative) Urine Bilirubin Negative (Negative) Urine Urobilinogen Negative (Negative) Ur Leukocyte Esterase 3+ H (Negative) Urine WBC (Auto) >30 H (0-5) /hpf Urine RBC (Auto) 5-10 H (0-4) /hpf U Hyaline Cast (Auto) 0 (0-5) /lpf U Epithel Cells (Auto) 10-20 H (0-5) /lpf Urine Bacteria (Auto) Negative (Negative) Urine Yeast Not Reportable COVID-19 Eval Order SARS-CoV-2 (PCR) (Negative) Imaging Data Attestation: I personally reviewed and interpreted this imaging study as follows: Radiologist's Impression: Chest X-Ray 05/27/21 21:39 SINGLE VIEW CHEST CLINICAL HISTORY: Sepsis. FINDINGS: An AP, portable, upright chest radiograph is obtained. No prior studies are available for comparison at the time of dictation. The examination is degraded by portable technique, motion artifact, and apical lordotic positioning. There is a large hiatal hernia. The heart is enlarged noting atherosclerotic calcification of the thoracic aorta. The pulmonary vasculature is noncongested. Atelectasis is noted at the lung bases. No airspace consolidation or large pleural effusion is identified. Nonspecific interstitial thickening is noted. No pneumothorax is seen. The skeletal structures are osteopenic. The bony thorax is grossly intact. IMPRESSION: 1. Cardiomegaly with no acute cardiopulmonary abnormality. 2. Hiatal hernia. ACT 112: Negative or not required by law. Electronically signed by: Eduardo Daniels M.D. 05/28/2021 8:01 AM Chest CTA 05/27/21 22:30 CT ANGIOGRAPHY OF THE CHEST, PULMONARY EMBOLUS PROTOCOL CLINICAL HISTORY: Chest pain. Shortness of breath. Evaluate for pulmonary embolus. COMPARISON STUDY: Chest radiograph May 27, 2021. TECHNIQUE: Following IV administration of 120 mL of Optiray, helical axial images of the chest were obtained utilizing the pulmonary embolus protocol. Maximal intensity projections and sagittal and coronal reformats were viewed on an independent 3D workstation. IV contrast was administered without complicati on. Automated exposure control was utilized for the study. A dose lowering technique was utilized adhering to the principles of ALARA. CT DOSE: 1153.61 mGy.cm FINDINGS: No pulmonary emboli are identified although exam is mildly compromised by suboptimal opacification. There is moderate cardiomegaly and coronary artery calcification. No thoracic aortic dissection is noted. There is no pericardial effusion. A moderate sized hiatal hernia is noted. No pneumothorax or pleural effusion is noted. No consolidation to suggest pneumonia. There is moderate emphysema. A 4 mm nodule within the right middle lobe on image 154 is noted. This is probably benign. There is hepatic steatosis. IMPRESSION: 1. No pulmonary emboli identified although exam mildly compromised by suboptimal opacification. 2. Emphysema. 3. No consolidation to suggest pneumonia. 4. Moderate cardiomegaly and coronary artery calcification. 5. Hiatal hernia. 6. 4 mm right middle lobe nodule. This is likely benign. A follow-up chest CT in 6 months to ensure stability is recommended. ACT 112: Negative or not required by law. Electronically signed by: Gary Ovalle M.D. 05/28/2021 9:05 AM Abdomen/Pelvis CT 05/28/21 01:11 CT SCAN OF THE ABDOMEN AND PELVIS WITHOUT IV CONTRAST CLINICAL HISTORY: Sepsis. Back pain. COMPARISON STUDY: No priors. TECHNIQUE: CT scan of the abdomen and pelvis is performed from the lung bases to the proximal femora. Images are reviewed in the axial, sagittal, and coronal planes. IV contrast was not administered for this examination. A dose lowering t echnique was utilized adhering to the principles of ALARA. CT DOSE: 1747.02 mGy.cm FINDINGS: Lung bases: The heart is normal in size and without pericardial effusion. The coronary arteries are densely calcified. There is a moderate to large hiatal hernia. Emphysematous change is noted at the lung bases. There is bibasilar scarring/atelectasis. No airspace consolidation or pleural effusion is identified. Liver: The unenhanced liver is normal in size and contour. The liver demonstrates diffusely diminished attenuation consistent with hepatic steatosis. There is no intrahepatic biliary ductal dilatation. Gallbladder: Layering gallstones are suspected. There is no CT evidence of acute cholecystitis. Spleen: Normal in size and attenuation. Pancreas: Unremarkable. Adrenal glands: Unremarkable. Kidneys: The unenhanced kidneys demonstrate cortical atrophy and are without hydronephrosis. Excreted IV contrast fills the renal collecting systems and ureters. This degrades assessment for renal calculi. There is no evidence of contour deforming renal mass lesion. Abdominal vasculature: The abdominal aorta is normal in course and caliber noting advanced atherosclerotic calcification. Bowel: There is moderate colonic diverticulosis without CT evidence of acute diverticulitis. No bowel obstruction is seen. Fecal retention is noted throughout the colon. The appendix is not identified. Peritoneum: There is no intraperitoneal free air or abdominal ascites. There is a fat-containing umbilical hernia. Lymphadenopathy: None. Pelvic viscera: The prostate gland is diminutive and heterogeneous. The bladder wall appears thickened and trabeculated suggesting chronic outlet obstruction. The bladder is filled with excreted IV contrast. There are bilateral fat- containing inguinal hernias with evidence of previous bilateral inguinal he rniorrhaphy. Skeletal structures: The skeletal structures are osteopenic. There is moderate to advanced lumbosacral spondylosis. No lytic or blastic lesions are seen. IMPRESSION: 1. There are no acute infectious or inflammatory findings in the abdomen or pelvis. 2. There is no bowel obstruction. 3. Moderate colonic diverticulosis without CT evidence of acute diverticulitis. 4. Emphysema. 5. Hepatic steatosis. 6. Moderate to large hiatal hernia. 7. Additional findings as above. ACT 112: Negative or not required by law. Electronically signed by: Eduardo Daniels M.D. 05/28/2021 8:41 AM [facility] Narrative Prior records/ancillary studies reviewed. Triage Nursing notes reviewed. Additional history obtained from EMS. The patient's history was concerning for fever and low O2 sats. Differential diagnosis: Etiologies such as sepsis, UTI, pneumonia, metabolic, electrolyte abnormalities, cardiac sources, intracerebral event, toxicologic, neurologic, as well as others were entertained. Physical examination: As above. Pertinent findings were fever and low O2 sats. Vital signs reviewed and revealed low oxygen. ER treatment provided: IV fluid resuscitation with Normal saline solution, 1000 mL bolus. Blood and urine cultures Antibiotics: Zosyn An order was placed for continuous cardiac monitoring. The monitor shows a rate of 60-1 10 with a sinus rhythm. On reassessment the patient vital signs improved. Diagnostics interpretation by me: ECG: Ordered for sepsis EKG: Normal sinus, normal intervals, right axis deviation, rate of 83. Impression normal sinus rhythm with right axis deviation interpreted by myself I think arrhythmia is unlikely. EKG shows normal sinus rhythm with no interval abnormalities such as QT prolongation or WPW. There are no findings to suggest Brugada syndrome. Cardiac monitoring in the emergency department reveals no tachycardic or bradycardic dysrhythmia. Hypertrophic cardiomyopathy was cons idered but there are no clear historical elements pointing toward this. EKG is not suggestive. The QRS voltage is not extremely large and there are no suggestive Q waves. EKG #2 ordered for positive troponin EKG: Normal sinus, normal intervals, right axis deviation, rate of 83. Impression normal sinus rhythm with right axis deviation interpreted by myself I think arrhythmia is unlikely. EKG shows normal sinus rhythm with no interval abnormalities such as QT prolongation or WPW. There are no findings to suggest Brugada syndrome. Cardiac monitoring in the emergency department reveals no tachycardic or bradycardic dysrhythmia. Hypertrophic cardiomyopathy was considered but there are no clear historical elements pointing toward this. EKG is not suggestive. The QRS voltage is not extremely large and there are no suggestive Q waves. The labs revealed anemia on CBC. Chemistry panel revealed hyperglycemia. LFTs revealed. Cardiac enzymes were positive. Serum Lactate measurement was reviewed Blood and urine cultures are pending. Imaging studies: CTA CHEST: No evidence of acute pulmonary embolism. No thoracic aortic aneurysm. Coronary artery atherosclerosis. No significant pericardial effusion. Moderate hiatal hernia. Emphysema. Minor right basilar atelectasis. No consolidation, effusion, or pneumothorax. No acute osseous findings. Radiologist: Cary Diallo M.D. Consultation: A consultation was placed with the hospitalist. The case was discussed and diagnostics were reviewed. The patient was evaluated in the ER for further treatment. Exam and history seem consistent with sepsis with a positive troponin and urine infection. Patient started on antibiotics. Medicine was consulted. He will be evaluated for admission. Covid was negative. Oxygen improved with nasal cannula. He does have COPD. Patient will be admitted. Attending Attestation: Dustin Justice MD independently saw and evaluated this patient and agree with history and physical is otherwise documented by the physician assistant department manager. See their note for full details. Patient with some troponin elevation here and no hypoxia. History of smoking. No evidence on extensive work-up in ED of PE or pneumonia. WBC not elevated but procalcitonin somewhat elevated. Urine is questioning for infection. Covid test negative. Covered with broad-spectrum antibiotic and given aspirin. Patient denies any chest pain on exam. He is resting comfortably in bed on several liters of oxygen in no respiratory distress. Does have some mild chronic edema of the lower legs but again not clear evidence on imaging of CHF/pulmonary edema. Patient will be admitted for further care. Impression & Plan Sepsis, UTI (urinary tract infection), Elevated troponin Discharge Plan Visit Data Chief Complaint: Fever ED Provider: Severino Justice ED Midlevel Provider: Yasmeen Schultz Discharge Problem: Sepsis, UTI (urinary tract infection), Elevated troponin Patient Disposition: Admitted As Inpatient Condition: Fair Discharge Instructions Interventions: ED Discharge Assessment Last Done: 05/28/21 03:02 Discharge Problem: Sepsis Qualifiers: Sepsis type: sepsis due to unspecified organism Sepsis acute organ dysfunction status: unspecified Qualified Code(s): A41.9 - Sepsis, unspecified organism
[2021-05-28] MEDS ORDERED: DEXTROSE 50% 50 ML SYRINGE IV PRN (04:27)
[2021-05-28] MEDS ORDERED: GLUCAGON FOR INJ 1 MG VIAL SQ PRN (04:27)
[2021-05-28] MEDS ORDERED: ACETAMINOPHEN 325 MG TAB PO PRN (04:27)
[2021-05-28] MEDS ORDERED: GLUCOSE 40% GEL 15 GM TUBE PO PRN (04:27)
[2021-05-28] MEDS ORDERED: traMADol HCL 50 MG TABLET PO PRN (04:27)
[2021-05-28] MEDS ORDERED: GLUCOSE 10 TABS/TUBE PO PRN (04:27)
[2021-05-28] MEDS ORDERED: CEFEPIME CONSULT ACTIVE PRN (04:27)
[2021-05-28] MEDS ORDERED: CARBOHYDRATES FOR HYPOGLYCEMIA PO PRN (04:27)
[2021-05-28] MEDS ORDERED: INSULIN GLARGINE SOLOSTAR 100 UNITS/ML 3 ML PEN SC ONE (05:00)
[2021-05-28] MEDS: CEFEPIME 2,000 MG in SYRINGE 0 ML IV SCH ×3 (05:13→20:25)
[2021-05-28] MEDS: INSULIN ASPART 100 UNITS/ML 3 ML PEN SC SCH ×5 (05:44→20:25)
[2021-05-28 05:50] LABS: Basophils # (auto) 0.02 K/uL (0-0.2); Basophils % (auto) 0.2 %; Eosinophils # (auto) 0.01 K/uL (0-0.5); Eosinophils % (auto) 0.1 %; Hematocrit (blood only) 35.8 % (42-52); Immature Granulocytes # (auto) 0.01 K/uL (0.00-0.02); Immature Granulocytes % (auto) 0.1 %; Lymphocytes # (auto) 1.02 K/uL (1.2-3.4); Mean Corpuscular Hemoglobin 23.6 pg (25-34); Mean Corpuscular Hgb Conc 30.7 g/dL (32-36); Mean Corpuscular Volume 76.7 fL (80-100); Mean Platelet Volume 9.8 fL (7.4-10.4); Monocytes # (auto) 0.45 K/uL (0.11-0.59); Monocytes % (auto) 5.3 %; Neutrophils # (auto) 7.01 K/uL (1.4-6.5); Neutrophils % (auto) 82.3 %; Platelet Count 245 K/uL (130-400); RDW Coefficient of Variation 18.6 % (11.5-14.5); RDW Standard Deviation 52.4 fL (36.4-46.3); Red Blood Count 4.67 M/uL (4.7-6.1); Reticulocyte % 1.6 % (0.5-2.0); Reticulocytes # 0.07 10^6/uL (0.02-0.10); White Blood Count 8.52 K/uL (4.8-10.8)
[2021-05-28] MEDS: METOPROLOL TARTRATE 25 MG TAB PO SCH ×2 (05:52→20:25)
[2021-05-28 06:07] LABS: BUN Creatinine Ratio 14.8 (10-20); Calcium 8.7 mg/dl (8.5-10.1); Creatinine Clr Calc Pharmacy 63.1 ml/min; Est GFR (African American) 63.4 ml/min; Est GFR (Non-African American) 54.7 ml/min; Potassium 4.8 mmol/L (3.5-5.1)
[2021-05-28 06:14] LABS: Ferritin 28.3 ng/ml (8-388); Troponin I 0.121 ng/ml (0-0.045)
[2021-05-28] MEDS ORDERED: XOPENEX/ATROVENT 1.25mg/0.5MG NEB COMBO NEB SCH (07:00)
[2021-05-28 07:22] LABS: Estimated Average Glucose 206 mg/dl; Hemoglobin A1C 8.8 % (4.5-5.6)
[2021-05-28] MEDS: IPRATROPIUM BROMIDE NEB SOLN 0.02% 2.5 ML VIAL INH SCH ×3 (07:31→19:18)
[2021-05-28] MEDS: LEVALBUTEROL 1.25MG/0.5ML NEB INH SCH ×3 (07:31→19:18)
--- NOTE | 2021-05-28 08:02 | XRay Report ---
SINGLE VIEW CHEST CLINICAL HISTORY: Sepsis. FINDINGS: An AP, portable, upright chest radiograph is obtained. No prior studies are available for c omparison at the time of dictation. The examination is degraded by portable technique, motion artifac t, and apical lordotic positioning. There is a large hiatal hernia. The heart is enlarged noting athe rosclerotic calcification of the thoracic aorta. The pulmonary vasculature is noncongested. Atelectas is is noted at the lung bases. No airspace consolidation or large pleural effusion is identified. Non specific interstitial thickening is noted. No pneumothorax is seen. The skeletal structures are osteo penic. The bony thorax is grossly intact. IMPRESSION: 1. Cardiomegaly with no acute cardiopulmonary abnormality. 2. Hiatal hernia. ACT 112: Negative or not required by law. Electronically signed by: Eduardo Daniels M.D. 05/28/2021 8:01 AM
--- NOTE | 2021-05-28 08:42 | CT Scan Report ---
CT SCAN OF THE ABDOMEN AND PELVIS WITHOUT IV CONTRAST CLINICAL HISTORY: Sepsis. Back pain. COMPARISON STUDY: No priors. TECHNIQUE: CT scan of the abdomen and pelvis is performed from the lung bases to the proximal femora. Images are reviewed in the axial, sagittal, and coronal planes. IV contrast was not administered for this examination. A dose lowering technique was utilized adhering to the principles of ALARA. CT DOSE: 1747.02 mGy.cm FINDINGS: Lung bases: The heart is normal in size and without pericardial effusion. The coronary arteries are d ensely calcified. There is a moderate to large hiatal hernia. Emphysematous change is noted at the jimena ng bases. There is bibasilar scarring/atelectasis. No airspace consolidation or pleural effusion is i dentified. Liver: The unenhanced liver is normal in size and contour. The liver demonstrates diffusely diminishe d attenuation consistent with hepatic steatosis. There is no intrahepatic biliary ductal dilatation. Gallbladder: Layering gallstones are suspected. There is no CT evidence of acute cholecystitis. Spleen: Normal in size and attenuation. Pancreas: Unremarkable. Adrenal glands: Unremarkable. Kidneys: The unenhanced kidneys demonstrate cortical atrophy and are without hydronephrosis. Excreted IV contrast fills the renal collecting systems and ureters. This degrades assessment for renal calcu li. There is no evidence of contour deforming renal mass lesion. Abdominal vasculature: The abdominal aorta is normal in course and caliber noting advanced atheroscle rotic calcification. Bowel: There is moderate colonic diverticulosis without CT evidence of acute diverticulitis. No bowel obstruction is seen. Fecal retention is noted throughout the colon. The appendix is not identified. Peritoneum: There is no intraperitoneal free air or abdominal ascites. There is a fat-containing umbi lical hernia. Lymphadenopathy: None. Pelvic viscera: The prostate gland is diminutive and heterogeneous. The bladder wall appears thickene d and trabeculated suggesting chronic outlet obstruction. The bladder is filled with excreted IV cont rast. There are bilateral fat-containing inguinal hernias with evidence of previous bilateral inguina l herniorrhaphy. Skeletal structures: The skeletal structures are osteopenic. There is moderate to advanced lumbosacra l spondylosis. No lytic or blastic lesions are seen. IMPRESSION: 1. There are no acute infectious or inflammatory findings in the abdomen or pelvis. 2. There is no bowel obstruction. 3. Moderate colonic diverticulosis without CT evidence of acute diverticulitis. 4. Emphysema. 5. Hepatic steatosis. 6. Moderate to large hiatal hernia. 7. Additional findings as above. ACT 112: Negative or not required by law. Electronically signed by: Eduardo Daniels M.D. 05/28/2021 8:41 AM
[2021-05-28] MEDS ORDERED: lisinopril 10 MG TAB PO SCH (09:00)
[2021-05-28] MEDS ORDERED: METOPROLOL TARTRATE 25 MG TAB PO SCH (09:00)
[2021-05-28] MEDS: PANTOprazole 40 MG TAB PO SCH (09:01)
[2021-05-28] MEDS: VITAMIN B COMPLEX TAB PO SCH (09:02)
[2021-05-28] MEDS: DOXYCYCLINE HYCLATE 100 MG CAP PO SCH ×2 (09:02→20:24)
[2021-05-28] MEDS: ROSUVASTATIN CALCIUM 10 MG TAB PO SCH (09:02)
[2021-05-28] MEDS: ASPIRIN 81 MG ECTAB PO SCH (09:03)
[2021-05-28] MEDS: CLOPIDOGREL BISULFATE 75 MG TAB PO SCH (09:03)
[2021-05-28] MEDS: ISOSORBIDE MONO EXTENDED REL 30 MG TABCR PO SCH (09:03)
--- NOTE | 2021-05-28 09:07 | CT Scan Report ---
CT ANGIOGRAPHY OF THE CHEST, PULMONARY EMBOLUS PROTOCOL CLINICAL HISTORY: Chest pain. Shortness of breath. Evaluate for pulmonary embolus. COMPARISON STUDY: Chest radiograph May 27, 2021. TECHNIQUE: Following IV administration of 120 mL of Optiray, helical axial images of the chest were o btained utilizing the pulmonary embolus protocol. Maximal intensity projections and sagittal and cor onal reformats were viewed on an independent 3D workstation. IV contrast was administered without co mplication. Automated exposure control was utilized for the study. A dose lowering technique was ut ilized adhering to the principles of ALARA. CT DOSE: 1153.61 mGy.cm FINDINGS: No pulmonary emboli are identified although exam is mildly compromised by suboptimal opaci fication. There is moderate cardiomegaly and coronary artery calcification. No thoracic aortic dissec tion is noted. There is no pericardial effusion. A moderate sized hiatal hernia is noted. No pneumoth orax or pleural effusion is noted. No consolidation to suggest pneumonia. There is moderate emphysema . A 4 mm nodule within the right middle lobe on image 154 is noted. This is probably benign. There is hepatic steatosis. IMPRESSION: 1. No pulmonary emboli identified although exam mildly compromised by suboptimal opacification. 2. Emphysema. 3. No consolidation to suggest pneumonia. 4. Moderate cardiomegaly and coronary artery calcification. 5. Hiatal hernia. 6. 4 mm right middle lobe nodule. This is likely benign. A follow-up chest CT in 6 months to ensure s tability is recommended. ACT 112: Negative or not required by law. Electronically signed by: Gary Ovalle M.D. 05/28/2021 9:05 AM
[2021-05-28 09:23] LABS: Folate (Folic Acid) 13.4 ng/ml (>5.38)
[2021-05-28] MEDS: ENOXAPARIN INJ 40 MG/0.4 ML SYR SQ SCH (09:38)
[2021-05-28] MEDS: lisinopril 20 MG TAB PO SCH (09:38)
[2021-05-28] MEDS: INSULIN GLARGINE SOLOSTAR 100 UNITS/ML 3 ML PEN SC SCH ×2 (09:39→20:25)
--- NOTE | 2021-05-28 10:21 | Communication Note ---
Date of Service: May 28, 2021 Patient seen and examined this morning 80-year-old man with history of CAD status post stents, hypertension, DM type II who presents from presents for cough, fever and hypoxemia. Being managed for bronchitis and UTI. Patient seen and examined this morning. Reports dry cough, some dysuria yesterday and joints pains especially in the knee which is chronic. CT angio did not show any PE but showed emphysema, no consolidation but moderate cardiomegaly and coronary artery calcification as well as a 4 mm right middle lobe nodule Urinalysis suggestive of possible UTI with nitrites, esterase and pyuria -Bronchitis -Urinary tract infection Based on my review of patient's vitals and lab work, patient did not meet SIRS criteria for sepsis. Continue cefepime and doxycycline for now Patient has elevated troponin which is flat. EKG does not show any acute ST-T changes. Likely in the setting of CAD. Follow-up urine culture Was on 2 L of oxygen during my evaluation. Wean off oxygen as tolerated I agree with other plans as detailed in H&P this morning
[2021-05-28] MEDS: GABAPENTIN 600 MG TAB PO SCH (20:25)
[2021-05-28] MEDS: DOXAZosin MESYLATE 4 MG TAB PO SCH (20:25)
[2021-05-28] MEDS: LATANOPROST 0.005% OP SOLN 2.5 ML BTL OP SCH (20:26)
[2021-05-29] MEDS: IPRATROPIUM BROMIDE NEB SOLN 0.02% 2.5 ML VIAL INH SCH ×4 (00:31→18:58)
[2021-05-29] MEDS: LEVALBUTEROL 1.25MG/0.5ML NEB INH SCH ×4 (00:31→18:58)
[2021-05-29] MEDS: CEFEPIME 2,000 MG in SYRINGE 0 ML IV SCH ×3 (05:14→20:42)
[2021-05-29 06:17] LABS: Hematocrit (blood only) 33.7 % (42-52); Hemoglobin 10.3 g/dL (14.0-18.0); Mean Corpuscular Hemoglobin 23.4 pg (25-34); Mean Corpuscular Hgb Conc 30.6 g/dL (32-36); Mean Corpuscular Volume 76.6 fL (80-100); Platelet Count 242 K/uL (130-400); RDW Coefficient of Variation 18.4 % (11.5-14.5); RDW Standard Deviation 52.1 fL (36.4-46.3); White Blood Count 8.33 K/uL (4.8-10.8)
[2021-05-29 07:09] LABS: BUN Creatinine Ratio 16.9 (10-20); Calcium 8.5 mg/dl (8.5-10.1); Creatinine Clr Calc Pharmacy 70.2 ml/min; Est GFR (African American) 71.8 ml/min; Est GFR (Non-African American) 61.9 ml/min; Potassium 4.2 mmol/L (3.5-5.1)
[2021-05-29] MEDS: INSULIN ASPART 100 UNITS/ML 3 ML PEN SC SCH ×4 (09:26→20:42)
[2021-05-29] MEDS: INSULIN GLARGINE SOLOSTAR 100 UNITS/ML 3 ML PEN SC SCH ×2 (09:28→20:42)
[2021-05-29] MEDS: ASPIRIN 81 MG ECTAB PO SCH (09:33)
[2021-05-29] MEDS: CLOPIDOGREL BISULFATE 75 MG TAB PO SCH (09:34)
[2021-05-29] MEDS: VITAMIN B COMPLEX TAB PO SCH (09:35)
[2021-05-29] MEDS: ROSUVASTATIN CALCIUM 10 MG TAB PO SCH (09:36)
[2021-05-29] MEDS: DOXYCYCLINE HYCLATE 100 MG CAP PO SCH ×2 (09:36→20:43)
[2021-05-29] MEDS: METOPROLOL TARTRATE 25 MG TAB PO SCH ×2 (09:37→20:44)
[2021-05-29] MEDS: PANTOprazole 40 MG TAB PO SCH (09:37)
[2021-05-29] MEDS: ISOSORBIDE MONO EXTENDED REL 30 MG TABCR PO SCH (09:37)
[2021-05-29] MEDS: lisinopril 20 MG TAB PO SCH (09:38)
[2021-05-29] MEDS: ENOXAPARIN INJ 40 MG/0.4 ML SYR SQ SCH (09:40)
--- NOTE | 2021-05-29 13:12 | Hospitalist Progress Note ---
Date of Service May 29, 2021 Assessment & Plan (1) UTI (urinary tract infection): (2) Bronchitis: Plan: Symptoms improving. Weaned off oxygen. Currently on room air Continue nebs as needed. Urine culture growing GNR. Continue antibiotics and follow-up speciation and sensitivities. (3) Elevated troponin: Plan: Toponin elevated but flat 0.126-0.121 Denies any chest pain (4) Hypertension: Plan: Poorly controlled blood pressure Lisinopril will increase to 20 mg daily. We will continue this and monitor. Continue Imdur, metoprolol and Bumex [home medications May need more medications (5) DVT prophylaxis: Plan: Lovenox acute Admission and Anticipated Discharge Date Admission Date: May 28, 2021 Anticipated date of discharge: 05/30/21 Subjective 80-year-old man with history of CAD status post stents, hypertension, DM type II who presents from presents for cough, fever and hypoxemia. Being managed for bronchitis and UTI. Patient seen and examined. Reports significant improvement in cough. Has been weaned off oxygen. Still reports dysuria. Denies frequency, urgency, fevers or chills Review of Systems Constitutional: no fever, no chills, no body aches and no fatigue Eyes: no problem reported Ear, Nose, Mouth, Throat: no problem reported Respiratory: + cough; no dyspnea and no dyspnea on exertion Cardiovascular: no chest pain, no dyspnea, no palpitations and no edema Gastrointestinal: no abdominal pain, no nausea, no vomiting and no diarrhea/loose stools Genitourinary: + dysuria; no urinary frequency, no urinary hesitancy or no hematuria Musculoskeletal: no problem reported Neurologic: no dizziness and no headache(s) Psychiatric: no depression and no anxiety Physical Exam Constitutional: + well hydrated and + obese; no acute distress Eyes: PERRL, conjunctivae normal, anicteric sclerae ENMT: external ear and nose normal, oropharynx normal Respiratory: normal respiratory effort, lungs clear to auscultation Cardiovascular: Rate/Rhythm: regular rate and regular rhythm Heart Sounds: normal S1 and normal S2 No pedal edema Gastrointestinal (Abdomen): normal bowel sounds, soft, nontender, no hepatosplenomegaly Musculoskeletal: no cyanosis or clubbing, extremities motor strength 5/5 Neurologic: PERRL, EOMI, accommodation nl, no face palsy, no dysarthria Psychiatric: A+Ox3, euthymic affect Genitourinary: no CVA tenderness Results & Data Results & Data ([facility]) Vital Signs (Past 12 Hours) Vital Signs Temp Pulse Resp BP BP Pulse Ox 05/29/21 13:00 77 20 92 05/29/21 11:28 36.5 C 64 20 147/72 H 92 05/29/21 07:42 36.5 C 78 20 172/70 H 90 05/29/21 07:05 77 20 95 05/29/21 04:00 36.9 C 79 18 167/68 H 90 Laboratory Results Abnormal lab results 05/28/21 05/28/21 05/29/21 Range/Units 16:26 20:11 06:07 RBC 4.40 L (4.7-6.1) M/uL Hgb 10.3 L (14.0-18.0) g/dL Hct 33.7 L (42-52) % MCV 76.6 L (80-100) fL MCH 23.4 L (25-34) pg MCHC 30.6 L (32-36) g/dL RDW Std Deviation 52.1 H (36.4-46.3) fL RDW Coeff of Sandrita 18.4 H (11.5-14.5) % BUN (7-18) mg/dl Glucose (70-99) mg/dl POC Glucose 245 H 198 H (70-99) mg/dl 05/29/21 05/29/21 05/29/21 Range/Units 06:07 07:42 11:28 RBC (4.7-6.1) M/uL Hgb (14.0-18.0) g/dL Hct (42-52) % MCV (80-100) fL MCH (25-34) pg MCHC (32-36) g/dL RDW Std Deviation (36.4-46.3) fL RDW Coeff of Sandrita (11.5-14.5) % BUN 19 H (7-18) mg/dl Glucose 165 H (70-99) mg/dl POC Glucose 166 H 169 H (70-99) mg/dl
[2021-05-29] MEDS ORDERED: amLODIPine BESYLATE 5 MG TAB PO ONE (18:22)
[2021-05-29] MEDS: DOXAZosin MESYLATE 4 MG TAB PO SCH (20:43)
[2021-05-29] MEDS: LATANOPROST 0.005% OP SOLN 2.5 ML BTL OP SCH (20:43)
[2021-05-29] MEDS: GABAPENTIN 600 MG TAB PO SCH (20:43)
[2021-05-29] MEDS ORDERED: hydrALAZINE HCL 20 MG/ML VIAL IV PRN (23:23)
[2021-05-30] MEDS: LEVALBUTEROL 1.25MG/0.5ML NEB INH SCH ×3 (01:01→12:35)
[2021-05-30] MEDS: IPRATROPIUM BROMIDE NEB SOLN 0.02% 2.5 ML VIAL INH SCH ×3 (01:01→12:35)
[2021-05-30] MEDS: CEFEPIME 2,000 MG in SYRINGE 0 ML IV SCH ×2 (04:31→13:14)
--- NOTE | 2021-05-30 06:27 | Electrocardiogram Report ---
Test Reason : Blood Pressure : / mmHG Vent. Rate : 083 BPM Atrial Rate : 083 BPM P-R Int : 176 ms QRS Dur : 088 ms QT Int : 362 ms P-R-T Axes : 066 104 055 degrees QTc Int : 425 ms Normal sinus rhythm Rightward axis Borderline ECG No previous ECGs available Confirmed by Vasquez Torres ([id number]) on 05/30/2021 6:26:31 AM Referred By: Heather MCCORMICK Confirmed By:Vasquez Torres
--- NOTE | 2021-05-30 06:30 | Electrocardiogram Report ---
Test Reason : Blood Pressure : / mmHG Vent. Rate : 084 BPM Atrial Rate : 084 BPM P-R Int : 172 ms QRS Dur : 090 ms QT Int : 368 ms P-R-T Axes : 056 093 058 degrees QTc Int : 434 ms Normal sinus rhythm Rightward axis Borderline ECG When compared with ECG of 27-MAY-2021 22:00, No significant change was found Confirmed by Vasquez Torres ([id number]) on 05/30/2021 6:29:47 AM Referred By: Heather MCCORMICK Confirmed By:Vasquez Torres
[2021-05-30 06:47] LABS: Hematocrit (blood only) 35.8 % (42-52); Hemoglobin 11.1 g/dL (14.0-18.0); Mean Corpuscular Hemoglobin 23.1 pg (25-34); Mean Corpuscular Volume 74.6 fL (80-100); Mean Platelet Volume 9.1 fL (7.4-10.4); Platelet Count 260 K/uL (130-400); RDW Coefficient of Variation 18.2 % (11.5-14.5); RDW Standard Deviation 50.1 fL (36.4-46.3); White Blood Count 8.12 K/uL (4.8-10.8)
[2021-05-30 07:19] LABS: Calcium 8.9 mg/dl (8.5-10.1); Creatinine Clr Calc Pharmacy 71.7 ml/min; Est GFR (African American) 75.1 ml/min; Est GFR (Non-African American) 64.8 ml/min; Potassium 3.8 mmol/L (3.5-5.1)
[2021-05-30] MEDS: lisinopril 20 MG TAB PO SCH (08:20)
[2021-05-30] MEDS: ENOXAPARIN INJ 40 MG/0.4 ML SYR SQ SCH (08:20)
[2021-05-30] MEDS: DOXYCYCLINE HYCLATE 100 MG CAP PO SCH (08:21)
[2021-05-30] MEDS: ROSUVASTATIN CALCIUM 10 MG TAB PO SCH (08:21)
[2021-05-30] MEDS: CLOPIDOGREL BISULFATE 75 MG TAB PO SCH (08:21)
[2021-05-30] MEDS: PANTOprazole 40 MG TAB PO SCH (08:21)
[2021-05-30] MEDS: ISOSORBIDE MONO EXTENDED REL 30 MG TABCR PO SCH (08:21)
[2021-05-30] MEDS: ASPIRIN 81 MG ECTAB PO SCH (08:21)
[2021-05-30] MEDS: VITAMIN B COMPLEX TAB PO SCH (08:21)
[2021-05-30] MEDS: INSULIN ASPART 100 UNITS/ML 3 ML PEN SC SCH ×2 (08:23→12:39)
[2021-05-30] MEDS: INSULIN GLARGINE SOLOSTAR 100 UNITS/ML 3 ML PEN SC SCH (08:23)
[2021-05-30] MEDS ORDERED: amLODIPine BESYLATE 5 MG TAB PO SCH (09:00)
[2021-05-30] MEDS: METOPROLOL TARTRATE 25 MG TAB PO SCH (09:24)
--- NOTE | 2021-05-30 10:57 | Discharge Summary ---
Date of Service May 30, 2021 Admission HPI Per Admitting Provider History obtained from patient and records. Patient is a fair historian. Medical history significant for CAD status post stent, hypertension, hyperlipidemia, DM2 insulin requiring, past tobacco abuse. Patient not sure why he was brought to the emergency room. As per documentation, patient with fever, cough, malaise of 1 day. Antibiotics initiated at correctional facility. Possible COVID-19 contacts. Patient noted to be hypoxemic at correctional facility. Patient complaining of achy back pain off a few days duration. Denies chest pain, unusual S OB. Denies black/bloody stools. At the ER, patient given Zosyn for sepsis. 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 Admission Exam Per Admitting Provider GENERAL: Comfortable, morbidly obese, hard of hearing, no respiratory distress SKIN: Pallor , warm HEENT: Pale palpebral conjunctivae, no ptosis, dry buccal mucosa, nasal cannula in place NECK : Supple, short neck, no tenderness CHEST : Decreased breath sounds, occasional expiratory wheezes, no tenderness HEART : RRR, no obvious murmurs ABDOMEN: Some distention, nontender RECTAL : Intact sphincter, dark brown stool (FOBT negative) EXTREMITIES : Minimal LE swelling, no LE tenderness, no other conspicuous deformities noted NEUROLOGIC : Coherent, no facial asymmetry, hard of hearing, no other gross focality Principal Diagnosis Acute bronchitis Urinary tract infection Hypertension Discharge Exam Constitutional + well hydrated and + obese; no acute distress Eyes PERRL, conjunctivae normal, anicteric sclerae ENMT external ear and nose normal, oropharynx normal Respiratory normal respiratory effort, lungs clear to auscultation Cardiovascular Rate/Rhythm: regular rate and regular rhythm Heart Sounds: normal S1 and normal S2 Gastrointestinal (Abdomen) normal bowel sounds, soft, nontender, no hepatosplenomegaly Musculoskeletal no cyanosis or clubbing, extremities motor strength 5/5 Neurologic PERRL, EOMI, accommodation nl, no face palsy, no dysarthria Psychiatric A+Ox3, euthymic affect Genitourinary no CVA tenderness Discharge Data Allergies Allergy/AdvReac Type Severity Reaction Status Date / Time Sulfa (Sulfonamide Allergy Unknown Verified 05/27/21 23:16 Antibiotics) Consultations 05/28/21 00:33 ED Decision to Admit Stat Ordered Studies 05/27/21 22:30 CT angio chest PE protocol Urgent No pulmonary emboli are identified although exam is mildly compromised by suboptimal opacification. There is moderate cardiomegaly and coronary artery calcification. No thoracic aortic dissection is noted. There is no pericardial effusion. A moderate sized hiatal hernia is noted. No pneumothorax or pleural effusion is noted. No consolidation to suggest pneumonia. There is moderate emphysema. A 4 mm nodule within the right middle lobe on image 154 is noted. This is probably benign. There is hepatic steatosis. IMPRESSION: 1. No pulmonary emboli identified although exam mildly compromised by suboptimal opacification. 2. Emphysema. 3. No consolidation to suggest pneumonia. 4. Moderate cardiomegaly and coronary artery calcification. 5. Hiatal hernia. 6. 4 mm right middle lobe nodule. This is likely benign. A follow-up chest CT in 6 months to ensure stability is recommended. 05/28/21 01:11 CT abd pelvis wo con Urgent Lung bases: The heart is normal in size and without pericardial effusion. The coronary arteries are densely calcified. There is a moderate to large hiatal hernia. Emphysematous change is noted at the lung bases. There is bibasilar scarring/atelectasis. No airspace consolidation or pleural effusion is identified. Liver: The unenhanced liver is normal in size and contour. The liver demonstrates diffusely diminished attenuation consistent with hepatic steatosis. There is no intrahepatic biliary ductal dilatation. Gallbladder: Layering gallstones are suspected. There is no CT evidence of acute cholecystitis. Spleen: Normal in size and attenuation. Pancreas: Unremarkable. Adrenal glands: Unremarkable. Kidneys: The unenhanced kidneys demonstrate cortical atrophy and are without hydronephrosis. Excreted IV contrast fills the renal collecting systems and ureters. This degrades assessment for renal calculi. There is no evidence of contour deforming renal mass lesion. Abdominal vasculature: The abdominal aorta is normal in course and caliber noting advanced atherosclerotic calcification. Bowel: There is moderate colonic diverticulosis without CT evidence of acute diverticulitis. No bowel obstruction is seen. Fecal retention is noted throughout the colon. The appendix is not identified. Peritoneum: There is no intraperitoneal free air or abdominal ascites. There is a fat-containing umbilical hernia. Lymphadenopathy: None. Pelvic viscera: The prostate gland is diminutive and heterogeneous. The bladder wall appears thickened and trabeculated suggesting chronic outlet obstruction. The bladder is filled with excreted IV contrast. There are bilateral fat-cont aining inguinal hernias with evidence of previous bilateral inguinal herniorrhaphy. Skeletal structures: The skeletal structures are osteopenic. There is moderate to advanced lumbosacral spondylosis. No lytic or blastic lesions are seen. IMPRESSION: 1. There are no acute infectious or inflammatory findings in the abdomen or pelvis. 2. There is no bowel obstruction. 3. Moderate colonic diverticulosis without CT evidence of acute diverticulitis. 4. Emphysema. 5. Hepatic steatosis. 6. Moderate to large hiatal hernia. 7. Additional findings as above. Hospital Course (1) UTI (urinary tract infection): (2) Bronchitis: Symptoms improving. Reports dysuria is resolved Have been weaned off oxygen. Currently on room air. Oxygen saturation in low 90s Urine culture growing Klebsiella. Continue augmentin 875mg bid for 4 more days to complete treatment (3) Elevated troponin: Toponin elevated but flat 0.126-0.121 Denies any chest pain (4) Hypertension: Poorly controlled blood pressure during hospital stay with SBP >200 yeste rday Lisinopril was increased to 20 mg daily. Was also started on amlodipine 5mg daily BP is better controlled today with BP of 147/72 this morning Continue Imdur, metoprolol and Bumex [home medications I called the physician at the [facility]'s clinic and discussed patient's care and management Recommend assessing nocturnal oxygen requirement Also to continue BP management Total Time Total Time Spent Total Time Spent (In Minutes): 60 Discharge Plan Discharge Items Patient Disposition: [facility] Reason For Visit: Fever. Cough Discharge Diagnosis: Acute bronchitis Urinary tract infection Hypertension Condition on Discharge: Fair Activity: Resume your previous activity Non-emergency contact: Primary Care Provider Call non-emergency contact if: you have any medication questions Follow-up/Referrals: Heather MCCORMICK [Primary Care Provider] - Diet: Carb Consistent or DM2 and Heart Healthy Addtl Attending Provider Instructions: Mr Israel Zendejas were brought to the hospital for Fever, cough and was reported to have low oxygen level at the correctional facility. You were evaluated and treated for acute bronchitis and urinary tract infection. You were weaned off oxygen. Please take augmentin for next 4 days to complete treatment. However, your doctor will need you to get a sleep study or nocturnal pulse oximetry to assess oxygen requirement at bedtime Your blood pressure was poorly controlled during your hospital stay and appropriate adjustments were made. Your lisinopril was increased to 20mg daily and you were started on amlodipine 5mg daily. Please ensure follow up with your Primary Doctor at the facility. Pending Studies at Discharge: No Stand-Alone Forms: My [facility] Skilled Items Patient informed of condition?: Yes Discharge Level of Care: Other Communicable Disease: No Discharge Prognosis: Stable Lines: None Urinary Catheter: No Medications and DC Order Prescriptions: New amoxicillin-pot clavulanate [Augmentin] 875-125 mg tablet 1 tab PO BID 4 Days Qty: 8 RF: 0 amlodipine [Norvasc] 5 mg Tablet 5 mg PO QAM Qty: 30 RF: 0 Continued latanoprost 0.005 % Drops 1 drp OPHTHALMIC (EYE) PM RF: 0 gabapentin 600 mg Tablet 1,200 mg PO HS RF: 0 ipratropium-albuterol 0.5 mg-3 mg(2.5 mg base)/3 mL Solution For Nebulization 3 ml INHALATION QID RF: 0 bumetanide 2 mg Tablet 2 mg PO DAILY RF: 0 ondansetron HCl [Zofran] 4 mg Tablet 4 mg PO Q8H PRN (Reason: Nausea) RF: 0 isosorbide mononitrate 30 mg Tablet Extended Release 24 Hr 30 mg PO DAILY RF: 0 clopidogrel [Plavix] 75 mg Tablet 75 mg PO DAILY RF: 0 aspirin 81 mg Tablet,Delayed Release (Dr/Ec) 81 mg PO DAILY RF: 0 acetaminophen [Tylenol Extra Strength] 500 mg Tablet 1,000 mg PO TID PRN (Reason: Pain) RF: 0 doxazosin [Cardura] 8 mg Tablet 8 mg PO HS RF: 0 cyanocobalamin (vitamin B-12) 1,000 mcg/mL Solution 1,000 mcg SUBCUT MO RF: 0 Novolin R Regular U-100 Insuln 100 unit/mL Solution 1 sliding scale dose SUBCUT USEASDIRECTD RF: 0 bismuth subsalicylate [Pepto-Bismol] 262 mg Tablet,Chewable 1 tab PO BID RF: 0 vitamin B complex Tablet 1 tab PO BID RF: 0 zinc sulfate 220 mg Capsule 220 mg PO DAILY RF: 0 insulin NPH and regular human 100 unit/mL (70-30) Cartridge 12 unit SUBCUT BID RF: 0 rosuvastatin [Crestor] 10 mg Tablet 10 mg PO DAILY RF: 0 metoprolol tartrate 25 mg Tablet 25 mg PO BID RF: 0 levalbuterol tartrate [Xopenex HFA] 45 mcg/actuation Hfa Aerosol Inhaler 2 inh INHALATION Q6H PRN (Reason: Shortness Of Breath Or Wheezing) RF: 0 cholecalciferol (vitamin D3) [Vitamin D3] 25 mcg (1,000 unit) Tablet 25 mcg PO DAILY RF: 0 omeprazole 20 mg Tablet,Delayed Release (Dr/Ec) 20 mg PO DAILY RF: 0 Alvesco 160 mcg/actuation Hfa Aerosol Inhaler 2 puff INHALATION BID RF: 0 Changed lisinopril 10 mg Tablet 20 mg PO DAILY Qty: 60 RF: 0 Discontinued azithromycin 250 mg Tablet 250 mg PO DAILY RF: 0 amoxicillin-pot clavulanate [Augmentin] 500-125 mg Tablet 1 tab PO BID RF: 0 Discharge Orders: Discharge Order (Routine); Ordered 05/30/21 Ordered By: Montse Souza Admission Data Admit Date/Time: 05/28/21 01:21 Attending Provider: Montse Souza I. Admit Provider: Mark Jacobs Primary Care Provider: Heather MCCORMICK Other Providers: Mark Jacobs Other Interventions: Discharge Summary Assessment (RN) Last Done: 05/30/21 11:18
== END 2021-05-30 17:15 | DRG 202 ==
LOC: ED 21:32 → INTOOBSV 05-28 01:21 → 2N 05-28 01:21

== ENCOUNTER 2022-01-08 11:27 | Inpatient (IN) ==
[2022-01-08] MEDS ORDERED: SODIUM CHLORIDE 0.9% 1000ML 1,000 ML IV STA (12:02)
[2022-01-08] MEDS ORDERED: SODIUM CHLORIDE 0.9% 500 ML IV STA (12:02)
[2022-01-08 12:12] LABS: Basophils # (auto) 0.02 K/uL (0-0.2); Basophils % (auto) 0.2 %; Eosinophils # (auto) 0.17 K/uL (0-0.5); Immature Granulocytes # (auto) 0.02 K/uL (0.00-0.02); Immature Granulocytes % (auto) 0.2 %; Lymphocytes # (auto) 1.32 K/uL (1.2-3.4); Lymphocytes % (auto) 15.5 %; Mean Corpuscular Hemoglobin 28.4 pg (25-34); Mean Corpuscular Hgb Conc 32.5 g/dL (32-36); Mean Corpuscular Volume 87.3 fL (80-100); Mean Platelet Volume 10.9 fL (7.4-10.4); Monocytes % (auto) 12.9 %; Neutrophils # (auto) 5.91 K/uL (1.4-6.5); Neutrophils % (auto) 69.2 %; Platelet Count 235 K/uL (130-400); RDW Coefficient of Variation 12.9 % (11.5-14.5); RDW Standard Deviation 41.4 fL (36.4-46.3); Red Blood Count 4.58 M/uL (4.7-6.1); White Blood Count 8.54 K/uL (4.8-10.8)
--- NOTE | 2022-01-08 12:14 | Emergency Department Note ---
Impression & Plan Acute hypotension, Abdominal pain, Diarrhea, SOB (shortness of breath), DONNIE (acute kidney injury), UTI (urinary tract infection) ED Provider Note INFORMANT: Patient and EMS ED PROVIDER(S): Nelson Obando MD CHIEF COMPLAINT: Hypotension PLAN: Disposition: Admitted Condition: Good Outpatient prescription management: none Referral: None MEDICAL DECISION MAKING: Patient presented emergency room after episode of altered mental status with bradycardia, hypotension and hypoxia. Vital signs were improved after fluid bolus from EMS. Patient mental status improved as well. Patient CBC was unremarkable. Chemistry panel reveals a mild DONNIE. Chest x-ray was unremarkable. CT scan of the abdomen pelvis concerning for cystitis. Blood cultures and lactate performed. UTI found on urinalysis. Additional hydration given. Patient was treated with IV Rocephin. In light of the hypotensive episode and change in mental status that occurred earlier further management in the hospital was deemed appropriate. Consultation was made with the [facility]. Patient was evaluated in the ER and admitted for further management. Triage Nursing notes reviewed and agree them. Vital Signs: reviewed and remarkable for no significant abnormalities Differential diagnosis: Appendicitis, infections, diverticulitis, UTI, obstruction, cardiac sources, pneumonia, mesenteric ischemia, aortic pathology, inflammatory bowel disease, renal colic, PUD, pancreatitis, biliary pathology, hernia, volvulus, constipation, as well as other pathologies. Diagnostics interpreted by me: ECG: Twelve-lead ECG reveals sinus bradycardia 56 bpm. Rightward axis. No ST elevation or depression. No PACs or PVCs. Cardiac Monitoring: Cardiac monitoring ordered by me: The patient was placed on continuous cardiac monitoring and observed. It revealed a normal sinus rhythm at 71 beats per minute without ectopy or evidence of dysrhythmia. Imaging studies: CT scan as noted above. HPI: The patient is a 81 year old male prisoner who presents to the Emergency Room with complaints of hypotension. This started this morning and occurred after eating. Patient states after having breakfast he had diarrhea. He was found to be sitting in his wheelchair and appeared lethargic. Staff noted he was bradycardic in the 40s, hypotensive with systolic blood pressures in the 70s and his pulse ox was in the 80s. Patient noted some mild shortness of breath. Cough recently but states recovered from that. He states over the last few days has been in normal health. He is in the [facility] at the present secondary to chronic lower extremity issues with severe arthritis. Currently the patient denies any pain at rest. Patient does have a history of UTI and noted some abnormal urine over the last week. Pt denies LOC, headache, fevers, chills, diaphoresis, visual changes, neck pain, chest pain, nausea, vomiting, back pain, melena, hematochezia, numbness, weakness, lymphadenopathy, rash, or other compla ints. ROS: See above HPI for pertinent positives & negatives. A total of 10 systems reviewed and were otherwise negative. PAST MEDICAL HISTORY:See Below , diabetes, hypertension, UTI PAST SURGICAL HISTORY:See Below, FAMILY HISTORY:See Below SOCIAL HISTORY:See Below, incarcerated HOME MEDICATIONS:See Below ALLERGIES:See Below VITALS:See Below PHYSICAL EXAMINATION: GENERAL: Awake, alert, nontoxic-appearing, in no distress HENT: Normocephalic, atraumatic. Oropharynx unremarkable. EYES: Normal conjunctiva. Sclera non-icteric. NECK: Inspection normal. Non-tender. Supple. No nuchal rigidity. FROM. No masses. RESPIRATORY: Clear to auscultation. No wheezes. No rales. Normal respiratory effort. CARDIAC: Normal rate. Normal rhythm. No murmurs. No rubs. Extremities warm and well perfused. Pulses equal. No JVD. GI: Soft, non-distended. Lower abdominal tenderness to palpation. No rebound or guarding. No masses. RECTAL: Deferred. MUSCULOSKELETAL: Atraumatic. Chest examination reveals no tenderness. The back is symmetrical on inspection without obvious abnormality. There is no CVA tenderness to palpation. No joint edema. LOWER EXTREMITIES: Calves are equal size bilaterally and non-tender. No edema. No discoloration. NEURO: Normal sensorium. No sensory or motor deficits noted. SKIN: No rash or jaundice noted. Nelson Obando MD Past Med/Surg History Medical History (Updated 01/08/22 @ 18:48 by Nelson Obando MD) CHF (congestive heart failure) COPD (chronic obstructive pulmonary disease) Diabetes High blood pressure Surgical History (Updated 01/08/22 @ 17:11 by Soren Lei MD) H/O inguinal hernia repair History of appendectomy Hx of CABG No pertinent past surgical history Family History (Updated 01/08/22 @ 17:12 by Soren Lei MD) Father Coronary heart disease Diabetes Social History Smoking Status: Former smoker Tobacco Type: Cigarettes Hx Alcohol Use: No Hx Substance Use: No Preferred Language: Cape Verdean Communication Ability: Effective Commanding [employer] Traffic Division Required: No Beliefs That Will Affect Care: None Current Living Situation: Other Current Living Situation Comment: Skilled Nursing Feels Safe at Home: Yes Assistive Devices: Walker and Wheelchair Allergies Allergies Allergy/AdvReac Type Severity Reaction Status Date / Time Sulfa (Sulfonamide Allergy Unknown Verified 01/08/22 13:40 Antibiotics) Home Meds Home Medications Medication Instructions Recorded Confirmed aspirin 81 mg tablet,delayed 81 mg PO DAILY 05/27/21 01/08/22 release bumetanide 2 mg tablet 2 mg PO DAILY 05/27/21 01/08/22 ciclesonide 160 mcg/actuation 2 puff INHALATION BID PRN 05/27/21 01/08/22 aerosol inhaler (Alvesco) clopidogrel 75 mg tablet (Plavix) 75 mg PO DAILY 05/27/21 01/08/22 doxazosin 8 mg tablet (Cardura) 8 mg PO HS 05/27/21 01/08/22 insulin regular human 100 unit/mL 1 sliding scale dose SUBCUT 05/27/21 01/08/22 injection solution (Novolin R USEASDIRECTD Regular U-100 Insulin) isosorbide mononitrate 30 mg 30 mg PO DAILY 05/27/21 01/08/22 tablet,extended release 24 hr latanoprost 0.005 % eye drops 1 drp OPB HS 05/27/21 01/08/22 metoprolol tartrate 25 mg tablet 25 mg PO BID 05/27/21 01/08/22 rosuvastatin 10 mg tablet (Crestor) 10 mg PO DAILY 05/27/21 01/08/22 albuterol sulfate 90 mcg/actuation 2 puff INHALATION QID PRN 01/08/22 01/08/22 aerosol inhaler (Proventil HFA) bismuth subsalicylate 262 mg/15 mL 262 mg PO BID PRN 01/08/22 01/08/22 oral suspension (Pepto-Bismol) dextromethorphan-guaifenesin 10 10 ml PO BID PRN 01/08/22 01/08/22 mg-100 mg/5 mL oral syrup insulin NPH-regular 70-30 U-100 12 unit SUBCUT BID 01/08/22 01/08/22 insulin 100 unit/mL subcutaneous pen (Novolin 70-30 FlexPen U-100 Insulin) lisinopril 10 mg tablet 10 mg PO DAILY 01/08/22 01/08/22 Results & Data (ED) Vital Signs Vital Signs - 24 hr 01/08/22 11:35 01/08/22 14:00 01/08/22 15:00 Temperature 36.8 C Temperature Source Oral Pulse Rate 56 L Pulse Rate [Apical] 72 71 Respiratory Rate 18 18 18 Blood Pressure 112/70 Blood Pressure [Right Arm] 111/65 122/78 Blood Pressure Mean 84 Blood Pressure Mean [Right Arm] 80 92 Pulse Oximetry 95 92 92 Oxygen Delivery Method Room Air Room Air Room Air Sepsis Recent Fever Within 48 Hours No Sepsis New/Unexplained Change in Mental Status No Sepsis Action Taken by Nursing No Action Required 01/08/22 17:00 Temperature Temperature Source Pulse Rate Pulse Rate [Apical] 71 Respiratory Rate 20 Blood Pressure Blood Pressure [Right Arm] 144/136 H Blood Pressure Mean Blood Pressure Mean [Right Arm] 138 Pulse Oximetry 94 Oxygen Delivery Method Room Air Sepsis Recent Fever Within 48 Hours Sepsis New/Unexplained Change in Mental Status Sepsis Action Taken by Nursing Laboratory Data Result diagrams: 01/08/22 11:44 01/08/22 11:44 Lab Results 01/08/22 01/08/22 01/08/22 Range/Units 11:44 11:44 14:15 WBC 8.54 (4.8-10.8) K/uL RBC 4.58 L (4.7-6.1) M/uL Hgb 13.0 L (14.0-18.0) g/dL Hct 40.0 L (42-52) % MCV 87.3 (80-100) fL MCH 28.4 (25-34) pg MCHC 32.5 (32-36) g/dL RDW Std Deviation 41.4 (36.4-46.3) fL RDW Coeff of Sandrita 12.9 (11.5-14.5) % Plt Count 235 (130-400) K/uL MPV 10.9 H (7.4-10.4) fL Immature Gran % (Auto) 0.2 % Neut % (Auto) 69.2 % Lymph % (Auto) 15.5 % [place] % (Auto) 12.9 % Eos % (Auto) 2.0 % Baso % (Auto) 0.2 % Neut # (Auto) 5.91 (1.4-6.5) K/uL Lymph # (Auto) 1.32 (1.2-3.4) K/uL [place] # (Auto) 1.10 H (0.11-0.59) K/uL Eos # (Auto) 0.17 (0-0.5) K/uL Baso # (Auto) 0.02 (0-0.2) K/uL Immature Gran # (Auto) 0.02 (0.00-0.02) K/uL Sodium 139 (136-145) mmol/L Potassium 3.8 (3.5-5.1) mmol/L Chloride 105 (98-107) mmol/L Carbon Dioxide 27 (21-32) mmol/L Anion Gap 7 (3-11) BUN 19 (6-23) mg/dl Creatinine 1.54 H (0.6-1.4) mg/dl Est Cr Clr Drug Dosing 46.5 ml/min Est GFR ( Amer) 48.0 ml/min Est GFR (Non-Af Amer) 41.4 ml/min BUN/Creatinine Ratio 12.3 (10-20) Glucose 117 H (70-99(Fasting)) mg/dl Lactate (0.4-2.0) mmol/L Calcium 8.9 (8.5-10.1) mg/dl Total Bilirubin 0.6 (0.2-1.0) mg/dl AST 15 (13-39) U/L ALT 10 (7-52) U/L Alkaline Phosphatase 58 (34-104) U/L Troponin I < 0.03 (0-0.04) ng/ml Total Protein 6.5 (6.0-8.3) gm/dl Albumin 3.8 (3.4-5.0) gm/dl Globulin 2.7 (2.5-4.0) gm/dl Albumin/Globulin Ratio 1.4 (0.9-2) Lipase 44 (11-82) U/L Urine Color Yellow Urine Appearance Clear (Clear) Urine pH 6.5 (4.5-7.5) Ur Specific [place] 1.013 (1.000-1.030) Urine Protein Negative (Negative) Urine Glucose (UA) Negative (Negative) Urine Ketones Negative (Negative) Urine Blood Negative (Negative) Urine Nitrite Negative (Negative) Urine Bilirubin Negative (Negative) Urine Urobilinogen Negative (Negative) Ur Leukocyte Esterase 2+ H (Negative) Urine WBC (Auto) 10-30 H (0-5) /hpf Urine RBC (Auto) 0-4 (0-4) /hpf U Hyaline Cast (Auto) 10-30 H (0-5) /lpf U Epithel Cells (Auto) >30 H (0-5) /lpf Urine Bacteria (Auto) 2+ H (Negative) SARS-CoV-2, RNA, NAAT (NEGATIVE) 01/08/22 01/08/22 Range/Units 15:20 15:42 WBC (4.8-10.8) K/uL RBC (4.7-6.1) M/uL Hgb (14.0-18.0) g/dL Hct (42-52) % MCV (80-100) fL MCH (25-34) pg MCHC (32-36) g/dL RDW Std Deviation (36.4-46.3) fL RDW Coeff of Sandrita (11.5-14.5) % Plt Count (130-400) K/uL MPV (7.4-10.4) fL Immature Gran % (Auto) % Neut % (Auto) % Lymph % (Auto) % [place] % (Auto) % Eos % (Auto) % Baso % (Auto) % Neut # (Auto) (1.4-6.5) K/uL Lymph # (Auto) (1.2-3.4) K/uL [place] # (Auto) (0.11-0.59) K/uL Eos # (Auto) (0-0.5) K/uL Baso # (Auto) (0-0.2) K/uL Immature Gran # (Auto) (0.00-0.02) K/uL Sodium (136-145) mmol/L Potassium (3.5-5.1) mmol/L Chloride (98-107) mmol/L Carbon Dioxide (21-32) mmol/L Anion Gap (3-11) BUN (6-23) mg/dl Creatinine (0.6-1.4) mg/dl Est Cr Clr Drug Dosing ml/min Est GFR ( Amer) ml/min Est GFR (Non-Af Amer) ml/min BUN/Creatinine Ratio (10-20) Glucose (70-99(Fasting)) mg/dl Lactate 1.8 (0.4-2.0) mmol/L Calcium (8.5-10.1) mg/dl Total Bilirubin (0.2-1.0) mg/dl AST (13-39) U/L ALT (7-52) U/L Alkaline Phosphatase (34-104) U/L Troponin I (0-0.04) ng/ml Total Protein (6.0-8.3) gm/dl Albumin (3.4-5.0) gm/dl Globulin (2.5-4.0) gm/dl Albumin/Globulin Ratio (0.9-2) Lipase (11-82) U/L Urine Color Urine Appearance (Clear) Urine pH (4.5-7.5) Ur Specific Perry (1.000-1.030) Urine Protein (Negative) Urine Glucose (UA) (Negative) Urine Ketones (Negative) Urine Blood (Negative) Urine Nitrite (Negative) Urine Bilirubin (Negative) Urine Urobilinogen (Negative) Ur Leukocyte Esterase (Negative) Urine WBC (Auto) (0-5) /hpf Urine RBC (Auto) (0-4) /hpf U Hyaline Cast (Auto) (0-5) /lpf U Epithel Cells (Auto) (0-5) /lpf Urine Bacteria (Auto) (Negative) SARS-CoV-2, RNA, NAAT NEGATIVE (NEGATIVE) Administered Medications Sodium Chloride (Nss 1000ml) 1,000 mls @ 125 mls/hr IV .Q8H STA Stop: 01/08/22 20:01 Last Admin: 01/08/22 13:24 Dose: 125 mls/hr Documented by: [id number] Discontinued Medications Sodium Chloride (Nss) 500 mls @ 999 mls/hr IV .Q31M STA Stop: 01/08/22 12:32 Last Infusion: 01/08/22 13:24 Dose: 0 mls/hr Documented by: [id number] Admin: 01/08/22 12:30 Dose: 999 mls/hr Documented by: [id number] Ceftriaxone Sodium (Rocephin) 2,000 mg in 70 mls @ 140 mls/hr IV NOW STA Stop: 01/08/22 15:40 Last Infusion: 01/08/22 18:20 Dose: 0 mls/hr Documented by: [id number] Admin: 01/08/22 15:44 Dose: 140 mls/hr Documented by: [id number] Imaging Data Radiologist's Impression: Abdomen/Pelvis CT 01/08/22 12:[address] WITHOUT CONTRAST CT DOSE: 1413.91 mGy.cm HISTORY: Acute lower abdominal pain with hypertension and urinary tract infection lower abd pain, hypotension, poss UTI TECHNIQUE: Multiaxial CT images of the abdomen and pelvis were performed without contrast. A dose lowering technique was utilized adhering to the principles of ALARA. COMPARISON STUDY: CT abdomen and pelvis 05/28/2021 FINDINGS: Cardiomegaly. Coronary artery calcifications. Trace pericardial effusion. Mild bibasilar atelectasis/scarring. Pulmonary emphysema. Limited evaluation of the solid abdominal organs without the use of IV contrast. The spleen is mildly enlarged measuring 14 cm in length. Unremarkable pancreas, adrenal glands and liver with suggestion of mild hepatic steatosis. Intraluminal gallbladder sludge versus cholelithiasis. No CT evidence of acute cholecystitis. Nonspecific bilateral perinephric stranding. No urolith or hydronephrosis. Urinary bladder wall thickening with partial distention. Unremarkable prostate. Postoperative changes of the bilateral inguinal canals with suggestion of a small fat filled left inguinal hernia. Atherosclerosis of the aorta without aneurysm. No adenopathy. Moderate sized hiatal hernia. No bowel obstruction or bowel wall thickening. Colonic diverticulosis. No CT evidence of acute appendicitis. Tiny fat filled periumbilical hernia. Unremarkable soft tissues. Degenerative changes of the spine, pelvis and hips. IMPRESSION: 1. No bowel obstruction or bowel wall thickening. 2. Colonic diverticulosis. 3. Moderate sized hiatal hernia. 4. Prostamegaly with mild urinary bladder wall thickening and partial distention. Correlate with urinalysis. 5. Pulmonary emphysema. 6. Additional findings as above. ACT 112: Negative or not required by law. The above report was generated using voice recognition software. It may contain grammatical, syntax or spelling errors. Electronically signed by: Hayden Garrett M.D. 01/08/2022 1:16 PM Chest X-Ray 01/08/22 12:02 SINGLE VIEW CHEST CLINICAL HISTORY: Hypoxia. Hypotension. Generalized abdominal pain FINDINGS: An AP, portable, upright chest radiograph is compared to chest x-ray and chest CT dated 05/27/2021. There is a large hiatal hernia. The heart is enlarged noting atherosclerotic calcification of the thoracic aorta. Emphysema and chronic interstitial thickening is similar to previous. There is bibasilar scarring/atelectasis. No airspace consolidation or large pleural effusion is identified. No pneumothorax is seen. The skeletal structures are osteopenic. The bony thorax is grossly intact. IMPRESSION: 1. Cardiomegaly and emphysema with no acute cardiopulmonary abnormality identified. 2. Large hiatal hernia. ACT 112: Negative or not required by law. Electronically signed by: Eduardo Daniels M.D. 01/08/2022 12:23 PM Discharge Plan Visit Data Chief Complaint: Hypotension Stated Complaint: HYPOTENSION ED Provider: Nelson Obando Discharge Problem: Acute hypotension, Abdominal pain, Diarrhea, SOB (shortness of breath), DONNIE (acute kidney injury), UTI (urinary tract infection) Forms Stand Alone Forms: [facility] [employer] Prescriptions Prescriptions: No Action dextromethorphan-guaifenesin [Robitussin-DM] 10-100 mg/5 mL Syrup 10 ml PO BID PRN (Reason: Cough) RF: 0 bismuth subsalicylate [Pepto-Bismol] 262 mg/15 mL Suspension 262 mg PO BID PRN (Reason: Diarrhea) RF: 0 albuterol sulfate [Proventil HFA] 90 mcg/actuation Hfa Aerosol Inhaler 2 puff INHALATION QID PRN (Reason: Shortness Of Breath) RF: 0 Novolin 70-30 FlexPen U-100 100 unit/mL (70-30) Insulin Pen 12 unit SUBCUT BID RF: 0 lisinopril 10 mg tablet 10 mg PO DAILY RF: 0 latanoprost 0.005 % Drops 1 drp OPB HS RF: 0 bumetanide 2 mg Tablet 2 mg PO DAILY RF: 0 isosorbide mononitrate 30 mg Tablet Extended Release 24 Hr 30 mg PO DAILY RF: 0 clopidogrel [Plavix] 75 mg Tablet 75 mg PO DAILY RF: 0 aspirin 81 mg Tablet,Delayed Release (Dr/Ec) 81 mg PO DAILY RF: 0 doxazosin [Cardura] 8 mg Tablet 8 mg PO HS RF: 0 Novolin R Regular U-100 Insuln 100 unit/mL Solution 1 sliding scale dose SUBCUT USEASDIRECTD RF: 0 rosuvastatin [Crestor] 10 mg Tablet 10 mg PO DAILY RF: 0 metoprolol tartrate 25 mg Tablet 25 mg PO BID RF: 0 Alvesco 160 mcg/actuation Hfa Aerosol Inhaler 2 puff INHALATION BID PRN (Reason: Shortness Of Breath) RF: 0 Referrals Referrals: Heather MCCORMICK [Primary Care Provider] -
[2022-01-08 12:25] LABS: Alanine Aminotransferase 10 U/L (7-52); Albumin Globulin Ratio 1.4 (0.9-2); Albumin Level 3.8 gm/dl (3.4-5.0); Alkaline Phosphatase 58 U/L (34-104); Anion Gap 7 (3-11); Aspartate Aminotransferase 15 U/L (13-39); BUN Creatinine Ratio 12.3 (10-20); Bilirubin,Total 0.6 mg/dl (0.2-1.0); Blood Urea Nitrogen 19 mg/dl (6-23); Calcium 8.9 mg/dl (8.5-10.1); Carbon Dioxide 27 mmol/L (21-32); Chloride 105 mmol/L (98-107); Creatinine Clr Calc Pharmacy 46.5 ml/min; Est GFR (Non-African American) 41.4 ml/min; Globulin 2.7 gm/dl (2.5-4.0); Glucose 117 mg/dl (70-99(Fasting)); Lipase 44 U/L (11-82); Potassium 3.8 mmol/L (3.5-5.1); Sodium 139 mmol/L (136-145); Total Protein 6.5 gm/dl (6.0-8.3); Troponin I < 0.03 ng/ml (0-0.04)
--- NOTE | 2022-01-08 12:25 | XRay Report ---
SINGLE VIEW CHEST CLINICAL HISTORY: Hypoxia. Hypotension. Generalized abdominal pain FINDINGS: An AP, portable, upright chest radiograph is compared to chest x-ray and chest CT dated 05/27. There is a large hiatal hernia. The heart is enlarged noting atherosclerotic calcification of the thoracic aorta. Emphysema and chronic interstitial thickening is similar to previous. There is bi basilar scarring/atelectasis. No airspace consolidation or large pleural effusion is identified. No p neumothorax is seen. The skeletal structures are osteopenic. The bony thorax is grossly intact. IMPRESSION: 1. Cardiomegaly and emphysema with no acute cardiopulmonary abnormality identified. 2. Large hiatal hernia. ACT 112: Negative or not required by law. Electronically signed by: Eduardo Daniels M.D. 01/08/2022 12:23 PM
--- NOTE | 2022-01-08 13:17 | CT Scan Report ---
ABDOMEN AND PELVIS CT WITHOUT CONTRAST CT DOSE: 1413.91 mGy.cm HISTORY: Acute lower abdominal pain with hypertension and urinary tract infection lower abd pain, hy potension, poss UTI TECHNIQUE: Multiaxial CT images of the abdomen and pelvis were performed without contrast. A dose lo wering technique was utilized adhering to the principles of ALARA. COMPARISON STUDY: CT abdomen and pelvis 05/28/2021 FINDINGS: Cardiomegaly. Coronary artery calcifications. Trace pericardial effusion. Mild bibasilar at electasis/scarring. Pulmonary emphysema. Limited evaluation of the solid abdominal organs without the use of IV contrast. The spleen is mildly enlarged measuring 14 cm in length. Unremarkable pancreas, adrenal glands and liver with suggestion of mild hepatic steatosis. Intraluminal gallbladder sludge v ersus cholelithiasis. No CT evidence of acute cholecystitis. Nonspecific bilateral perinephric stranding. No urolith or hydronephrosis. Urinary bladder wall thick ening with partial distention. Unremarkable prostate. Postoperative changes of the bilateral inguinal canals with suggestion of a small fat filled left inguinal hernia. Atherosclerosis of the aorta with out aneurysm. No adenopathy. Moderate sized hiatal hernia. No bowel obstruction or bowel wall thicken ing. Colonic diverticulosis. No CT evidence of acute appendicitis. Tiny fat filled periumbilical nilsa ia. Unremarkable soft tissues. Degenerative changes of the spine, pelvis and hips. IMPRESSION: 1. No bowel obstruction or bowel wall thickening. 2. Colonic diverticulosis. 3. Moderate sized hiatal hernia. 4. Prostamegaly with mild urinary bladder wall thickening and partial distention. Correlate with urin alysis. 5. Pulmonary emphysema. 6. Additional findings as above. ACT 112: Negative or not required by law. The above report was generated using voice recognition software. It may contain grammatical, syntax o r spelling errors. Electronically signed by: Hayden Garrett M.D. 01/08/2022 1:16 PM
[2022-01-08 14:42] LABS: Appearance Urine Clear (Clear); Bacteria Urine Automated 2+ (Negative); Bilirubin Urine Negative (Negative); Blood Urine Negative (Negative); Color Urine Yellow; Epithelial Cell Urine Auto >30 /lpf (0-5); Glucose Urine UA Negative (Negative); Ketones Urine Negative (Negative); Leukocyte Esterase Urine 2+ (Negative); Nitrite Urine Negative (Negative); Protein Urine Negative (Negative); RBC Urine Automated 0-4 /hpf (0-4); Specific Gravity Urine 1.013 (1.000-1.030); Urobilinogen Urine Negative (Negative); pH Urine 6.5 (4.5-7.5)
[2022-01-08] MEDS ORDERED: cefTRIAXone SODIUM 2,000 MG/70 ML BAG IV STA (15:11)
--- NOTE | 2022-01-08 17:16 | History & Physical Report ---
Date of Service January 08, 2022 Assessment & Plan (1) UTI (urinary tract infection): Plan: History of Klebsiella in infection sensitive to all antibiotics except nitrofurantoin. Initiated on ceftriaxone. Continue with such. Follow-up urine cultures. However no active urinary complaints for the patient currently (2) Acute hypotension: Plan: Likely secondary to the urine tract infection patient has received initial bolus by the ER staff. We will monitor conservatively. Patient is going to be orally ingesting. (3) DONNIE (acute kidney injury): Plan: Likely secondary to above we will obtain urine studies. We will avoid any IV hydration currently. We will hold patient's lisinopril as well as patient's bumetanide. We will monitor patient's response tomorrow. And adjust medication as needed (4) Insulin dependent diabetes mellitus: Plan: We will have the patient on carb ratio of 7 and correction factor of 20 will be conservative with patient to maintain patient's sugar levels between 140 and 180. We will have patient on glargine 10 units twice a day for now lower from 12 units. Titrate as needed tomorrow. Also obtain an A1c A1c collected last year was 8.8. (5) Hypertension: Plan: For now we will hold patient's doxazosin and lisinopril. Continue with metoprolol 25 twice a day from the evening dose with holding parameters. Patient blood pressure has normalized currently we will cautiously reduce medications as needed (6) COPD (chronic obstructive pulmonary disease): Plan: History of such significant history of cigarette smoking with an approximately [id number] history cigarette smoking. Patient quit smoking (7) CAD (coronary artery disease): Plan: The patient is on aspirin and Plavix. No active concerns currently. (8) DVT prophylaxis: Plan: For now we will maintain sequential complaint devices. Patient is on aspirin and Plavix currently hold any further pharmacologic anticoagulation Admission and Anticipated Discharge Date Admission Date: 01/08/2022 History of Present Illness Chief Complaint: Lethargy Primary Care Provider: ANNY Romero Patient is a 81-year-old male presented to the hospital from correctional facility with a past medical history of coronary disease, COPD, hypertension, diabetes presenting with lethargy at the correctional facility was noted to have bradycardia with heart rate in the 40s as well as hypotensive with a systolic blood pressure in the 70s and pulse ox was also noted to be in the 80s. Patient was subsequently brought into the hospital and noted to have a direct infection. Patient received IV fluids 1500 mL fluid bolus as well as ceftriaxone. Patient is blood pressure and heart rate has stabilized. Patient is feeling fine and alert. On questioning about the events he said he just felt tired. Denies any overt complaints currently denies any significant chest pain shortness of breath nausea vomiting or diarrhea. States only wants to do is just eat currently has not had food all day. Otherwise he states he is wheelchair-bound. States he does not walk due to Significant arthritis in his knees. Allergies Allergy/AdvReac Type Severity Reaction Status Date / Time Sulfa (Sulfonamide Allergy Unknown Verified 01/08/22 13:40 Antibiotics) Home Medications Medication Instructions Recorded Confirmed Type aspirin 81 mg tablet,delayed 81 mg PO DAILY 05/27/21 01/08/22 History release bumetanide 2 mg tablet 2 mg PO DAILY 05/27/21 01/08/22 History ciclesonide 160 mcg/actuation 2 puff INHALATION BID PRN 05/27/21 01/08/22 History aerosol inhaler (Alvesco) clopidogrel 75 mg tablet (Plavix) 75 mg PO DAILY 05/27/21 01/08/22 History doxazosin 8 mg tablet (Cardura) 8 mg PO HS 05/27/21 01/08/22 History insulin regular human 100 unit/mL 1 sliding scale dose SUBCUT 05/27/21 01/08/22 History injection solution (Novolin R USEASDIRECTD Regular U-100 Insulin) isosorbide mononitrate 30 mg 30 mg PO DAILY 05/27/21 01/08/22 History tablet,extended release 24 hr latanoprost 0.005 % eye drops 1 drp OPB HS 05/27/21 01/08/22 History metoprolol tartrate 25 mg tablet 25 mg PO BID 05/27/21 01/08/22 History rosuvastatin 10 mg tablet (Crestor) 10 mg PO DAILY 05/27/21 01/08/22 History albuterol sulfate 90 mcg/actuation 2 puff INHALATION QID PRN 01/08/22 01/08/22 History aerosol inhaler (Proventil HFA) bismuth subsalicylate 262 mg/15 mL 262 mg PO BID PRN 01/08/22 01/08/22 History oral suspension (Pepto-Bismol) dextromethorphan-guaifenesin 10 10 ml PO BID PRN 01/08/22 01/08/22 History mg-100 mg/5 mL oral syrup insulin NPH-regular 70-30 U-100 12 unit SUBCUT BID 01/08/22 01/08/22 History insulin 100 unit/mL subcutaneous pen (Novolin 70-30 FlexPen U-100 Insulin) lisinopril 10 mg tablet 10 mg PO DAILY 01/08/22 01/08/22 History Past Med/Surg History Medical History (Updated 01/08/22 @ 17:25 by Soren Lei MD) CHF (congestive heart failure) COPD (chronic obstructive pulmonary disease) Diabetes High blood pressure Surgical History (Updated 01/08/22 @ 17:11 by Soren Lei MD) H/O inguinal hernia repair History of appendectomy Hx of CABG No pertinent past surgical history Family History (Updated 01/08/22 @ 17:12 by Soren Lei MD) Father Coronary heart disease Diabetes Social History Smoking Status: Former smoker Tobacco Type: Cigarettes Hx Alcohol Use: No Hx Substance Use: No Preferred Language: Gibraltarian Communication Ability: Effective [employer] Supervisor Required: No Beliefs That Will Affect Care: None Current Living Situation: Other Current Living Situation Comment: Retirement Feels Safe at Home: Yes Assistive Devices: Walker and Wheelchair Review of Systems Review of Systems: All systems reviewed and negative other than as described above in the history and physical Physical Exam Physical Exam: Constitutional:WD/WN, vitals as above ENMT: external ear and nose normal, oropharynx normal Neck: trachea midline, no thyromegaly Respiratory: normal respiratory effort, lungs clear to auscultationAuscultation:no rhonchi and no wheezes Cardiovascular:RRR, no murmur, no edemaHeart Sounds:no murmur Gastrointestinal (Abdomen):normal bowel sounds, soft, nontender, no hepatosplenomegalynon distended other than obesity Musculoskeletal:no cyanosis or clubbing, extremities motor strength 5/5 Skin: no rashes, warm and dry Neurologic: patellar DTR's 2+ bilat, sensation intact and PERRL, EOMI, accommodation nl, no face palsy, no dysarthria Psychiatric: A+Ox2, Oriented to self and location. Unable to describe the [facility] and the year. Correct on the president. Genitourinary:Not assessed Lymphatic: no cervical or axillary lymphadenopathy Results & Data Results & Data ([facility]) Vital Signs (Past 12 Hours) Vital Signs Temp Pulse Pulse Resp BP BP Pulse Ox 01/08/22 17:00 71 20 144/136 H 94 01/08/22 15:00 71 18 122/78 92 01/08/22 14:00 72 18 111/65 92 01/08/22 11:35 36.8 C 56 L 18 112/70 95 Laboratory Results Short CBC 01/08/22 Range/Units 11:44 WBC 8.54 (4.8-10.8) K/uL Hgb 13.0 L (14.0-18.0) g/dL Hct 40.0 L (42-52) % Plt Count 235 (130-400) K/uL BMP 01/08/22 11:44 Sodium 139 Potassium 3.8 Chloride 105 Carbon Dioxide 27 BUN 19 Creatinine 1.54 H Glucose 117 H Calcium 8.9 Cardiac Enzymes 01/08/22 Range/Units 11:44 Troponin I < 0.03 (0-0.04) ng/ml Liver Function 01/08/22 Range/Units 11:44 Total Bilirubin 0.6 (0.2-1.0) mg/dl AST 15 (13-39) U/L ALT 10 (7-52) U/L Alkaline Phosphatase 58 (34-104) U/L Albumin 3.8 (3.4-5.0) gm/dl Urine 01/08/22 Range/Units 14:15 Urine Color Yellow Urine Appearance Clear (Clear) Urine pH 6.5 (4.5-7.5) Ur Specific [place] 1.013 (1.000-1.030) Urine Protein Negative (Negative) Urine Glucose (UA) Negative (Negative) Diagnostic Findings Abdomen/Pelvis CT 01/08/22 12:[address] WITHOUT CONTRAST CT DOSE: 1413.91 mGy.cm HISTORY: Acute lower abdominal pain with hypertension and urinary tract infection lower abd pain, hypotension, poss UTI TECHNIQUE: Multiaxial CT images of the abdomen and pelvis were performed without contrast. A dose lowering technique was utilized adhering to the principles of ALARA. COMPARISON STUDY: CT abdomen and pelvis 05/28/2021 FINDINGS: Cardiomegaly. Coronary artery calcifications. Trace pericardial effusion. Mild bibasilar atelectasis/scarring. Pulmonary emphysema. Limited evaluation of the solid abdominal organs without the use of IV contrast. The spleen is mildly enlarged measuring 14 cm in length. Unremarkable pancreas, adrenal glands and liver with suggestion of mild hepatic steatosis. Intraluminal gallbladder sludge versus cholelithiasis. No CT evidence of acute cholecystitis. Nonspecific bilateral perinephric stranding. No urolith or hydronephrosis. Urinary bladder wall thickening with partial distention. Unremarkable prostate. Postoperative changes of the bilateral inguinal canals with suggestion of a small fat filled left inguinal hernia. Atherosclerosis of the aorta without aneurysm. No adenopathy. Moderate sized hiatal hernia. No bowel obstruction or bowel wall thickening. Colonic diverticulosis. No CT evidence of acute appendicitis. Tiny fat filled periumbilical hernia. Unremarkable soft tissues. Degenerative changes of the spine, pelvis and hips. IMPRESSION: 1. No bowel obstruction or bowel wall thickening. 2. Colonic diverticulosis. 3. Moderate sized hiatal hernia. 4. Prostamegaly with mild urinary bladder wall thickening and partial distention. Correlate with urinalysis. 5. Pulmonary emphysema. 6. Additional findings as above. ACT 112: Negative or not required by law. The above report was generated using voice recognition software. It may contain grammatical, syntax or spelling errors. Electronically signed by: Hayden Garrett M.D. 01/08/2022 1:16 PM Chest X-Ray 01/08/22 12:02 SINGLE VIEW CHEST CLINICAL HISTORY: Hypoxia. Hypotension. Generalized abdominal pain FINDINGS: An AP, portable, upright chest radiograph is compared to chest x-ray and chest CT dated 05/27/2021. There is a large hiatal hernia. The heart is enlarged noting atherosclerotic calcification of the thoracic aorta. Emphysema and chronic interstitial thickening is similar to previous. There is bibasilar scarring/atelectasis. No airspace consolidation or large pleural effusion is identified. No pneumothorax is seen. The skeletal structures are osteopenic. The bony thorax is grossly intact. IMPRESSION: 1. Cardiomegaly and emphysema with no acute cardiopulmonary abnormality identified. 2. Large hiatal hernia. ACT 112: Negative or not required by law. Electronically signed by: Eduardo Daniels M.D. 01/08/2022 12:23 PM ECG Additional Comments: Sinus bradycardia 56 beats a minute. Right axis. No significant ST-T changes noted. Code Status & VTE Plan Code Status Patient is full code discussed with the patient VTE Prophylaxis Plan VTE Prophylaxis will be ordered: Yes
[2022-01-08] MEDS ORDERED: ACETAMINOPHEN 325 MG TAB PO PRN (19:15)
[2022-01-08] MEDS ORDERED: POLYETHYLENE (MIRALAX) 17 GM PACK PO PRN (19:15)
[2022-01-08] MEDS ORDERED: ALUMINUM/MAGNESIUM SUSP 30 ML UDC PO PRN (19:15)
[2022-01-08] MEDS ORDERED: DEXTROSE 50% 50 ML SYRINGE IV PRN (19:15)
[2022-01-08] MEDS ORDERED: CARBOHYDRATES FOR HYPOGLYCEMIA PO PRN (19:15)
[2022-01-08] MEDS ORDERED: GLUCAGON FOR INJ 1 MG VIAL SQ PRN (19:15)
[2022-01-08] MEDS ORDERED: GLUCOSE 40% GEL 15 GM TUBE PO PRN (19:15)
[2022-01-08] MEDS ORDERED: GLUCOSE 10 TABS/TUBE PO PRN (19:15)
[2022-01-08] MEDS ORDERED: MAGNESIUM HYDROXIDE SUSP 30 ML UDC PO PRN (19:15)
[2022-01-08] MEDS ORDERED: ALBUT/IPRATROP 3MG/0.5MG NEB 3 ML VIAL NEB PRN (19:15)
[2022-01-08] MEDS: INSULIN GLARGINE SOLOSTAR 100 UNITS/ML 3 ML PEN SC SCH (20:26)
[2022-01-08] MEDS: METOPROLOL TARTRATE 25 MG TAB PO SCH (20:27)
[2022-01-08] MEDS: LATANOPROST 0.005% OP SOLN 2.5 ML BTL OPB SCH (20:27)
[2022-01-08] MEDS: INSULIN ASPART PER UNIT SC SCH (20:27)
[2022-01-08] MEDS: HEPARIN SOD 5,000 UNIT/0.5 ML VIAL SQ SCH (20:28)
[2022-01-09] MEDS: HEPARIN SOD 5,000 UNIT/0.5 ML VIAL SQ SCH ×3 (05:41→21:38)
[2022-01-09 06:13] LABS: Basophils # (auto) 0.02 K/uL (0-0.2); Basophils % (auto) 0.3 %; Eosinophils % (auto) 2.8 %; Hematocrit (blood only) 37.5 % (42-52); Hemoglobin 12.4 g/dL (14.0-18.0); Immature Granulocytes # (auto) 0.02 K/uL (0.00-0.02); Immature Granulocytes % (auto) 0.3 %; Lymphocytes % (auto) 18.1 %; Mean Corpuscular Hemoglobin 28.4 pg (25-34); Mean Corpuscular Hgb Conc 33.1 g/dL (32-36); Mean Corpuscular Volume 85.8 fL (80-100); Mean Platelet Volume 10.8 fL (7.4-10.4); Monocytes # (auto) 1.04 K/uL (0.11-0.59); Monocytes % (auto) 14.5 %; Neutrophils # (auto) 4.61 K/uL (1.4-6.5); Platelet Count 244 K/uL (130-400); RDW Standard Deviation 41.2 fL (36.4-46.3); Red Blood Count 4.37 M/uL (4.7-6.1); White Blood Count 7.19 K/uL (4.8-10.8)
[2022-01-09 06:42] LABS: BUN Creatinine Ratio 15.2 (10-20); Calcium 8.4 mg/dl (8.5-10.1); Creatinine Clr Calc Pharmacy 63.1 ml/min; Est GFR (African American) 70.5 ml/min; Est GFR (Non-African American) 60.8 ml/min; Magnesium 1.8 mg/dl (1.7-2.4); Phosphorus 3.3 mg/dl (2.5-4.9); Potassium 3.7 mmol/L (3.5-5.1)
[2022-01-09] MEDS: METOPROLOL TARTRATE 25 MG TAB PO SCH ×2 (07:16→20:24)
[2022-01-09] MEDS: ROSUVASTATIN CALCIUM 10 MG TAB PO SCH (07:16)
[2022-01-09] MEDS: ASPIRIN 81 MG ECTAB PO SCH (07:16)
[2022-01-09] MEDS: ISOSORBIDE MONO EXTENDED REL 30 MG TABCR PO SCH (07:17)
[2022-01-09] MEDS: CLOPIDOGREL BISULFATE 75 MG TAB PO SCH (07:17)
[2022-01-09 07:55] LABS: Estimated Average Glucose 140 mg/dl; Hemoglobin A1C 6.5 % (4.5-5.6)
[2022-01-09] MEDS: INSULIN ASPART PER UNIT SC SCH ×4 (10:11→20:13)
[2022-01-09] MEDS: INSULIN GLARGINE SOLOSTAR 100 UNITS/ML 3 ML PEN SC SCH ×2 (10:12→20:14)
[2022-01-09 13:17] LABS: Creatinine Urine Random 162.7 mg/dl
[2022-01-09] MEDS: lisinopril 10 MG TAB PO SCH (14:34)
--- NOTE | 2022-01-09 14:56 | Hospitalist Progress Note ---
Date of Service January 09, 2022 Assessment & Plan (1) UTI (urinary tract infection): Plan: History of Klebsiella in infection sensitive to all antibiotics except nitrofurantoin Reports dysuria, freq UA suggestive of UTI UCx growing GBS prelim Continue ceftriaxone and follow up culture and sensitivities (2) Acute hypotension: Plan: Likely secondary to the urine tract infection and patient on antihypertensives Hypotension resolved with IVF Patient currently hypertensive Will resume his home lisinopril and monitor (3) Hypertension: Plan: BP elevated today Lisinopril resumed as above (4) DONNIE (acute kidney injury): Plan: Likely secondary to hypotension Resolved with IVF (5) COPD (chronic obstructive pulmonary disease): Plan: History of such significant history of cigarette smoking with an approximately 42-kgag-hebn history cigarette smoking. Patient quit smoking (6) CAD (coronary artery disease): Plan: Continue ASA plavix (7) Insulin dependent diabetes mellitus: Plan: A1c is 6.5 Continue insulin per protocol (8) DVT prophylaxis: Plan: hep sc Plan: For Diaper dermatitis Continue topical antifungal barrier cream Admission and Anticipated Discharge Date Admission Date: January 08, 2022 Subjective Patient seen and examined Reports dysuria, frequency Denied hematuria Denied fevers, chills, nausea, vomiting, abd pain,diarrhea Dizziness is resolved Reports dry cough Reports perineal rash Physical Exam Constitutional: + well hydrated and + obese; no acute distress Eyes: PERRL, conjunctivae normal, anicteric sclerae ENMT: external ear and nose normal, oropharynx normal Respiratory: normal respiratory effort, lungs clear to auscultation Cardiovascular: Rate/Rhythm: regular rate and regular rhythm S1 S2 Gastrointestinal (Abdomen): normal bowel sounds, soft, nontender, no hepatosplenomegaly Musculoskeletal: no cyanosis or clubbing, extremities motor strength 5/5 Skin: Perineal erythema around diaper region Neurologic: PERRL, EOMI, accommodation nl, no face palsy, no dysarthria Results & Data Results & Data ([facility]) Vital Signs (Past 12 Hours) Vital Signs Temp Pulse Pulse Resp BP Pulse Ox Pulse Ox 01/09/22 12:24 36.7 C 72 18 153/75 H 92 01/09/22 09:21 63 01/09/22 09:19 91 01/09/22 08:37 36.7 C 64 18 146/69 H 91 01/09/22 04:00 36.8 C 80 19 163/81 H 93 Laboratory Results Abnormal lab results 01/08/22 01/08/22 01/09/22 Range/Units 14:15 20:16 05:31 RBC 4.37 L (4.7-6.1) M/uL Hgb 12.4 L (14.0-18.0) g/dL Hct 37.5 L (42-52) % MPV 10.8 H (7.4-10.4) fL [place] # (Auto) 1.04 H (0.11-0.59) K/uL Glucose (70-99(Fasting)) mg/dl POC Glucose 141 H (70-99) mg/dl Hemoglobin A1c (4.5-5.6) % Calcium (8.5-10.1) mg/dl Ur Leukocyte Esterase 2+ H (Negative) Urine WBC (Auto) 10-30 H (0-5) /hpf U Hyaline Cast (Auto) 10-30 H (0-5) /lpf U Epithel Cells (Auto) >30 H (0-5) /lpf Urine Bacteria (Auto) 2+ H (Negative) 01/09/22 01/09/22 01/09/22 Range/Units 05:31 05:31 07:25 RBC (4.7-6.1) M/uL Hgb (14.0-18.0) g/dL Hct (42-52) % MPV (7.4-10.4) fL [place] # (Auto) (0.11-0.59) K/uL Glucose 105 H (70-99(Fasting)) mg/dl POC Glucose 115 H (70-99) mg/dl Hemoglobin A1c 6.5 H (4.5-5.6) % Calcium 8.4 L (8.5-10.1) mg/dl Ur Leukocyte Esterase (Negative) Urine WBC (Auto) (0-5) /hpf U Hyaline Cast (Auto) (0-5) /lpf U Epithel Cells (Auto) (0-5) /lpf Urine Bacteria (Auto) (Negative) 01/09/22 Range/Units 11:11 RBC (4.7-6.1) M/uL Hgb (14.0-18.0) g/dL Hct (42-52) % MPV (7.4-10.4) fL [place] # (Auto) (0.11-0.59) K/uL Glucose (70-99(Fasting)) mg/dl POC Glucose 146 H (70-99) mg/dl Hemoglobin A1c (4.5-5.6) % Calcium (8.5-10.1) mg/dl Ur Leukocyte Esterase (Negative) Urine WBC (Auto) (0-5) /hpf U Hyaline Cast (Auto) (0-5) /lpf U Epithel Cells (Auto) (0-5) /lpf Urine Bacteria (Auto) (Negative)
[2022-01-09] MEDS: cefTRIAXone SODIUM 2,000 MG in DEXTROSE 5% 50 ML IV SCH (17:08)
--- NOTE | 2022-01-09 18:02 | Electrocardiogram Report ---
Test Reason : Blood Pressure : / mmHG Vent. Rate : 056 BPM Atrial Rate : 056 BPM P-R Int : 194 ms QRS Dur : 076 ms QT Int : 442 ms P-R-T Axes : 083 108 076 degrees QTc Int : 426 ms Poor data quality, interpretation may be adversely affected Sinus bradycardia Rightward axis Abnormal ECG When compared with ECG of 27-MAY-2021 23:04, Vent. rate has decreased BY 28 BPM Confirmed by Vasquez Torres ([id number]) on 01/09/2022 6:02:00 PM Referred By: Heather MCCORMICK Confirmed By:Vasquez Torres
[2022-01-09] MEDS: LATANOPROST 0.005% OP SOLN 2.5 ML BTL OPB SCH (20:24)
--- NOTE | 2022-01-09 22:22 | Electrocardiogram Report ---
Test Reason : Blood Pressure : / mmHG Vent. Rate : 071 BPM Atrial Rate : 071 BPM P-R Int : 196 ms QRS Dur : 104 ms QT Int : 402 ms P-R-T Axes : 074 095 048 degrees QTc Int : 436 ms Normal sinus rhythm Rightward axis Borderline ECG When compared with ECG of 08-JAN-2022 11:37, No significant change was found Confirmed by Vasquez Torres ([id number]) on 01/09/2022 10:21:52 PM Referred By: Heather MCCORMICK Confirmed By:Vasquez Torres
[2022-01-10] MEDS: HEPARIN SOD 5,000 UNIT/0.5 ML VIAL SQ SCH ×3 (05:41→21:22)
[2022-01-10] MEDS: ISOSORBIDE MONO EXTENDED REL 30 MG TABCR PO SCH (08:25)
[2022-01-10] MEDS: ASPIRIN 81 MG ECTAB PO SCH (08:25)
[2022-01-10] MEDS: CLOPIDOGREL BISULFATE 75 MG TAB PO SCH (08:25)
[2022-01-10] MEDS: METOPROLOL TARTRATE 25 MG TAB PO SCH ×2 (08:26→20:39)
[2022-01-10] MEDS: lisinopril 10 MG TAB PO SCH (08:26)
[2022-01-10] MEDS: ROSUVASTATIN CALCIUM 10 MG TAB PO SCH (08:26)
[2022-01-10] MEDS: INSULIN ASPART PER UNIT SC SCH ×4 (08:38→21:11)
[2022-01-10] MEDS: INSULIN GLARGINE SOLOSTAR 100 UNITS/ML 3 ML PEN SC SCH ×2 (08:39→21:11)
[2022-01-10 09:45] LABS: Hematocrit (blood only) 39.6 % (42-52); Mean Corpuscular Hemoglobin 28.1 pg (25-34); Mean Corpuscular Hgb Conc 32.8 g/dL (32-36); Mean Corpuscular Volume 85.7 fL (80-100); Mean Platelet Volume 10.7 fL (7.4-10.4); Platelet Count 213 K/uL (130-400); RDW Coefficient of Variation 12.8 % (11.5-14.5); Red Blood Count 4.62 M/uL (4.7-6.1); White Blood Count 6.25 K/uL (4.8-10.8)
[2022-01-10 10:06] LABS: BUN Creatinine Ratio 14.4 (10-20); Calcium 8.9 mg/dl (8.5-10.1); Creatinine Clr Calc Pharmacy 72.3 ml/min; Est GFR (African American) 83.9 ml/min; Est GFR (Non-African American) 72.4 ml/min; Potassium 3.7 mmol/L (3.5-5.1)
--- NOTE | 2022-01-10 10:42 | Electrocardiogram Report ---
Test Reason : Blood Pressure : / mmHG Vent. Rate : 069 BPM Atrial Rate : 069 BPM P-R Int : 202 ms QRS Dur : 088 ms QT Int : 410 ms P-R-T Axes : 063 111 049 degrees QTc Int : 439 ms Normal sinus rhythm Left posterior fascicular block Abnormal ECG When compared with ECG of 09-JAN-2022 06:01, No significant change was found Confirmed by Demarco Garcia ([id number]) on 01/10/2022 10:42:14 AM Referred By: Heather MCCORMICK Confirmed By:Kirill Garcia
--- NOTE | 2022-01-10 12:05 | Hospitalist Progress Note ---
Date of Service January 10, 2022 Assessment & Plan (1) UTI (urinary tract infection): Plan: History of Klebsiella in infection sensitive to all antibiotics except nitrofurantoin Reports dysuria, freq UA suggestive of UTI UCx growing GBS prelim Continue ceftriaxone and follow up culture and sensitivities (2) Acute hypotension: Plan: Likely secondary to the urine tract infection and patient on antihypertensives Hypotension resolved with IVF Patient now hypertensive Home lisinopril had been resumed yesterday Doxazosin resumed (3) Hypertension: Plan: BP elevated today Continue lisinopril Doxazosin resumed (4) DONNIE (acute kidney injury): Plan: Due to hypotension Resolved with IVF (5) COPD (chronic obstructive pulmonary disease): Plan: History of such significant history of cigarette smoking with an approximately 14-vhjp-vixk history cigarette smoking. Patient quit smoking (6) CAD (coronary artery disease): Plan: Continue ASA plavix (7) Insulin dependent diabetes mellitus: Plan: A1c is 6.5 Continue insulin per protocol (8) DVT prophylaxis: Plan: hep sc Plan: For Diaper dermatitis Continue topical antifungal barrier cream Admission and Anticipated Discharge Date Admission Date: January 08, 2022 Subjective Patient seen and examined Reports dysuria is improving No frequency today Denied hematuria Denied fevers, chills, nausea, vomiting, abd pain,diarrhea Denied dizziness, headache Reports dry cough Has perineal rash Physical Exam Constitutional: + well hydrated and + obese; no acute distress Eyes: PERRL, conjunctivae normal, anicteric sclerae ENMT: external ear and nose normal, oropharynx normal Respiratory: normal respiratory effort, lungs clear to auscultation Cardiovascular: Rate/Rhythm: regular rate and regular rhythm S1 S2 Gastrointestinal (Abdomen): normal bowel sounds, soft, nontender, no hepatosplenomegaly Musculoskeletal: no cyanosis or clubbing, extremities motor strength 5/5 Skin: Perineal rash Neurologic: PERRL, EOMI, accommodation nl, no face palsy, no dysarthria Results & Data Results & Data ([facility]) Vital Signs (Past 12 Hours) Vital Signs Temp Pulse Pulse Resp BP Pulse Ox 01/10/22 11:16 36.5 C 55 L 17 175/74 H 98 01/10/22 08:22 174/89 H 01/10/22 07:59 64 01/10/22 07:19 36.7 C 78 19 208/85 H 93 01/10/22 03:31 36.7 C 65 16 180/79 H 92 Laboratory Results Abnormal lab results 01/09/22 01/10/22 01/10/22 Range/Units 20:03 09:33 09:33 RBC 4.62 L (4.7-6.1) M/uL Hgb 13.0 L (14.0-18.0) g/dL Hct 39.6 L (42-52) % MPV 10.7 H (7.4-10.4) fL Chloride 108 H (98-107) mmol/L Glucose 135 H (70-99(Fasting)) mg/dl POC Glucose 203 H (70-99) mg/dl 01/10/22 Range/Units 11:12 RBC (4.7-6.1) M/uL Hgb (14.0-18.0) g/dL Hct (42-52) % MPV (7.4-10.4) fL Chloride (98-107) mmol/L Glucose (70-99(Fasting)) mg/dl POC Glucose 134 H (70-99) mg/dl
[2022-01-10] MEDS ORDERED: hydrALAZINE HCL 25 MG TAB PO ONE (13:57)
[2022-01-10] MEDS: cefTRIAXone SODIUM 2,000 MG in DEXTROSE 5% 50 ML IV SCH (17:52)
[2022-01-10] MEDS: LATANOPROST 0.005% OP SOLN 2.5 ML BTL OPB SCH (20:39)
[2022-01-10] MEDS ORDERED: DOXAZosin MESYLATE 4 MG TAB PO SCH (21:00)
[2022-01-11] MEDS ORDERED: CEFDINIR 300 MG CAP PO SCH
[2022-01-11] MEDS: HEPARIN SOD 5,000 UNIT/0.5 ML VIAL SQ SCH (06:08)
[2022-01-11 06:40] LABS: BUN Creatinine Ratio 17.5 (10-20); Calcium 8.7 mg/dl (8.5-10.1); Est GFR (African American) 83.9 ml/min; Est GFR (Non-African American) 72.4 ml/min; Potassium 3.7 mmol/L (3.5-5.1)
[2022-01-11] MEDS: ASPIRIN 81 MG ECTAB PO SCH (08:34)
[2022-01-11] MEDS: CLOPIDOGREL BISULFATE 75 MG TAB PO SCH (08:34)
[2022-01-11] MEDS: ISOSORBIDE MONO EXTENDED REL 30 MG TABCR PO SCH (08:35)
[2022-01-11] MEDS: METOPROLOL TARTRATE 25 MG TAB PO SCH (08:35)
[2022-01-11] MEDS: lisinopril 10 MG TAB PO SCH (08:35)
[2022-01-11] MEDS: ROSUVASTATIN CALCIUM 10 MG TAB PO SCH (08:36)
[2022-01-11] MEDS: INSULIN GLARGINE SOLOSTAR 100 UNITS/ML 3 ML PEN SC SCH (08:39)
[2022-01-11] MEDS: INSULIN ASPART PER UNIT SC SCH ×2 (08:55→12:27)
[2022-01-11] MEDS ORDERED: BUMETANIDE 1 MG TAB PO SCH (09:00)
--- NOTE | 2022-01-11 11:24 | Discharge Summary ---
Date of Service January 11, 2022 Admission HPI Per Admitting Provider Patient is a 81-year-old male presented to the hospital from correctional facility with a past medical history of coronary disease, COPD, hypertension, diabetes presenting with lethargy at the correctional facility was noted to have bradycardia with heart rate in the 40s as well as hypotensive with a systolic blood pressure in the 70s and pulse ox was also noted to be in the 80s. Patient was subsequently brought into the hospital and noted to have a direct infection. Patient received IV fluids 1500 mL fluid bolus as well as ceftriaxone. Patient is blood pressure and heart rate has stabilized. Patient is feeling fine and alert. On questioning about the events he said he just felt tired. Denies any overt complaints currently denies any significant chest pain shortness of breath nausea vomiting or diarrhea. States only wants to do is just eat currently has not had food all day. Otherwise he states he is wheelchair-bound. States he does not walk due to Significant arthritis in his knees. Admission Exam Per Admitting Provider Constitutional:WD/WN, vitals as above ENMT: external ear and nose normal, oropharynx normal Neck: trachea midline, no thyromegaly Respiratory: normal respiratory effort, lungs clear to auscultationAuscultation:no rhonchi and no wheezes Cardiovascular:RRR, no murmur, no edemaHeart Sounds:no murmur Gastrointestinal (Abdomen):normal bowel sounds, soft, nontender, no hepatosplenomegalynon distended other than obesity Musculoskeletal:no cyanosis or clubbing, extremities motor strength 5/5 Skin: no rashes, warm and dry Neurologic: patellar DTR's 2+ bilat, sensation intact and PERRL, EOMI, accommodation nl, no face palsy, no dysarthria Psychiatric: A+Ox2, Oriented to self and location. Unable to describe the month and the year. Correct on the president. Genitourinary:Not assessed Lymphatic: no cervical or axillary lymphadenopathy Principal Diagnosis Urinary Tract Infection Acute kidney injury Diaper dermatitis Discharge Exam Constitutional + well hydrated and + obese; no acute distress Eyes PERRL, conjunctivae normal, anicteric sclerae ENMT external ear and nose normal, oropharynx normal Respiratory normal respiratory effort, lungs clear to auscultation Cardiovascular Rate/Rhythm: regular rate and regular rhythm S1 S2 Gastrointestinal (Abdomen) normal bowel sounds, soft, nontender, no hepatosplenomegaly Musculoskeletal no cyanosis or clubbing, extremities motor strength 5/5 Skin Perineal rash Neurologic PERRL, EOMI, accommodation nl, no face palsy, no dysarthria Discharge Data Allergies Allergy/AdvReac Type Severity Reaction Status Date / Time Sulfa (Sulfonamide Allergy Unknown Verified 01/08/22 13:40 Antibiotics) Consultations 01/08/22 15:34 ED Decision to Admit Stat Ordered Studies 01/08/22 12:02 CT abd pelvis wo con Stat Cardiomegaly. Coronary artery calcifications. Trace pericardial effusion. Mild bibasilar atelectasis/scarring. Pulmonary emphysema. Limited evaluation of the solid abdominal organs without the use of IV contrast. The spleen is mildly enlarged measuring 14 cm in length. Unremarkable pancreas, adrenal glands and liver with suggestion of mild hepatic steatosis. Intraluminal gallbladder sludge versus cholelithiasis. No CT evidence of acute cholecystitis. Nonspecific bilateral perinephric stranding. No urolith or hydronephrosis. Urinary bladder wall thickening with partial distention. Unremarkable prostate. Postoperative changes of the bilateral inguinal canals with suggestion of a small fat filled left inguinal hernia. Atherosclerosis of the aorta without aneurysm. No adenopathy. Moderate sized hiatal hernia. No bowel obstruction or bowel wall thickening. Colonic diverticulosis. No CT evidence of acute appendicitis. Tiny fat filled periumbilical hernia. Unremarkable soft tissues. Degenerative changes of the spine, pelvis and hips. IMPRESSION: 1. No bowel obstruction or bowel wall thickening. 2. Colonic diverticulosis. 3. Moderate sized hiatal hernia. 4. Prostamegaly with mild urinary bladder wall thickening and partial distention. Correlate with urinalysis. 5. Pulmonary emphysema. 6. Additional findings as above. Hospital Course (1) UTI (urinary tract infection): History of Klebsiella in infection sensitive to all antibiotics except nitrofurantoin Reported dysuria, freq UA suggestive of UTI UCx growing GBS prelim Urinary symptoms resolved Discharged on cefdinir for another 6 days to complete treatment (2) Acute hypotension: Patient was reported to be hypotensive on admission Likely secondary to the urine tract infection and patient on antihypertensives Hypotension resolved with IVF Antihypertensives were initially held but later resumed once hypotension resolved BP normal today. Continue home antihypertesives (3) Hypertension: As abpve (4) DONNIE (acute kidney injury): Cr was 1.54 on admission Due to hypotension DONNIE resolved with IVF Cr is 0.97 today (5) COPD (chronic obstructive pulmonary disease): History of such significant history of cigarette smoking with an approximately [id number] history cigarette smoking. Patient quit smoking (6) CAD (coronary artery disease): Continue ASA plavix (7) Insulin dependent diabetes mellitus: A1c is 6.5 Continue insulin per protocol For Diaper dermatitis Continue topical antifungal barrier cream Total Time Total Time Spent Total Time Spent (In Minutes): 45 Total Time Includes: Examination of the Patient, Discharge Planning, Medication Reconciliation and Other (Called Correction PA and updated her. Pharm provided 1 day dose of cefdinir as PA reported they wont be able to get it till tomorrow) Discharge Plan Discharge Items Patient Disposition: Correctional Facility Reason For Visit: UTI Discharge Diagnosis: Urinary Tract Infection Acute kidney injury Diaper dermatitis Activity: Resume your previous activity Non-emergency contact: Primary Care Provider Call non-emergency contact if: you have any medication questions Follow-up/Referrals: Heather MCCORMICK [Primary Care Provider] - Diet: Carb Consistent or DM2 and Heart Healthy Addtl Attending Provider Instructions: Mr Wood You were brought to the hospital for lethargy. You were noted to be hypotensive on presentation and evaluation revealed a urinary tract infection. You also had acute kidney injury. You were treated for these. Your hypotension resolved and your home blood pressure medicine were resumed. The acute kidney injury has resolved. You also has a diaper rash. Please continue the barrier cream provided. Please continue to take the oral antibiotic to complete treatment for your urinary infection. Please follow up with the doctor at the facility. It was a pleasure taking care of you. Pending Studies at Discharge: No Stand-Alone Forms: My [facility] Skilled Items Patient informed of condition?: Yes Discharge Level of Care: Other Communicable Disease: No Discharge Prognosis: Stable Lines: None Urinary Catheter: No Medications and DC Order Prescriptions: New cefdinir 300 mg capsule 300 mg PO BID 6 Days Qty: 12 RF: 0 Continued dextromethorphan-guaifenesin 10-100 mg/5 mL Syrup 10 ml PO BID PRN (Reason: Cough) RF: 0 bismuth subsalicylate [Pepto-Bismol] 262 mg/15 mL Suspension 262 mg PO BID PRN (Reason: Diarrhea) RF: 0 albuterol sulfate [Proventil HFA] 90 mcg/actuation Hfa Aerosol Inhaler 2 puff INHALATION QID PRN (Reason: Shortness Of Breath) RF: 0 Novolin 70-30 FlexPen U-100 100 unit/mL (70-30) Insulin Pen 12 unit SUBCUT BID RF: 0 lisinopril 10 mg tablet 10 mg PO DAILY RF: 0 latanoprost 0.005 % Drops 1 drp OPB HS RF: 0 bumetanide 2 mg Tablet 2 mg PO DAILY RF: 0 isosorbide mononitrate 30 mg Tablet Extended Release 24 Hr 30 mg PO DAILY RF: 0 clopidogrel [Plavix] 75 mg Tablet 75 mg PO DAILY RF: 0 aspirin 81 mg Tablet,Delayed Release (Dr/Ec) 81 mg PO DAILY RF: 0 doxazosin [Cardura] 8 mg Tablet 8 mg PO HS RF: 0 Novolin R Regular U-100 Insuln 100 unit/mL Solution 1 sliding scale dose SUBCUT USEASDIRECTD RF: 0 rosuvastatin [Crestor] 10 mg Tablet 10 mg PO DAILY RF: 0 metoprolol tartrate 25 mg Tablet 25 mg PO BID RF: 0 Alvesco 160 mcg/actuation Hfa Aerosol Inhaler 2 puff INHALATION BID PRN (Reason: Shortness Of Breath) RF: 0 Discharge Orders: Discharge Order (Routine); Ordered 01/11/22 Ordered By: Montse Tafoya/Other Patient Handouts: Managing Type 2 Diabetes Admission Data Admit Date/Time: 01/08/22 16:33 Attending Provider: Montse Souza I. Admit Provider: Soren Lei Primary Care Provider: Heather MCCORMICK Other Providers: Jacquelyn Wilkes Other Interventions: Discharge Summary Assessment (RN) Last Done: 01/11/22 12:40
== END 2022-01-11 13:33 | DRG 690 ==
LOC: ED 11:27 → SUATTDRO 16:33 → 2S 16:33

== ENCOUNTER 2023-01-13 13:22 | Inpatient (IN) ==
[2023-01-13] MEDS ORDERED: SODIUM CHLORIDE 0.9% 500 ML IV ONE (14:03)
[2023-01-13] MEDS ORDERED: PIPERACILLIN/TAZOBACTAM 4.5 GM/120 ML BAG IV ONE (14:05)
--- NOTE | 2023-01-13 14:30 | Emergency Department Note ---
Impression & Plan Infected skin graft, DONNIE (acute kidney injury), Fatigue, Acute UTI ED Provider Note Provider: Severino Justice MD DATE OF SERVICE: 01/13/2023 CHIEF COMPLAINT: Discharge possible infection HISTORY OF PRESENT ILLNESS: Patient is a 82-year-old gentleman history of CAD, COPD, diabetes, and BPH/UTI presenting here today referred from the [facility]. Patient is postop day 9 from a Mohs procedure to his nose to remove skin cancer done in the dermatology office here by Dr. Koroma of [facility]. Patient had some bleeding was seen here last week. Had some sutures removed 2 days ago according to him and guards. Started on Levaquin yesterday for possible infection. Bit more fatigued and having increasing pain and some drainage today and sent here for further evaluation. Reports the patient may have picked up a little bit but no significant bleeding or other new traumas reported. Patient endorses some pain to his nose and face. Fevers acutely reported. Patient had a skin graft from his right forehead placed over his nose where the Mohs procedure removed cancerous tissue. Some cartilage from the right ear reportedly was used in the nose as well. PAST MEDICAL HISTORY: As noted above MEDICATIONS: Reviewed medication list from the facility SOCIAL HISTORY: Inmate at the [facility] PHYSICAL EXAM: GENERAL: alert and oriented in no acute distress on stretcher with bandaging present across the forehead and midface. Corrections officers at bedside. Like shackles in place. Head: Bandaging across the face removed show a large approximately 6 x 5 cm area of granulated wound to the right forehead with incision extending down to the nose. Nose is detailed below. EYES: No injection, discharge or icterus. PERRL, EOMI. there is some resolving contusion just below the bilateral eyes. NECK: Trachea midline. Supple. ENT: Mucous membranes pink and slightly tacky. Sutures in the helix and antihelix of the right ear healing without significant erythema or swelling. The graft across the nose shows some granulation and some slight purulence around the nasal bridge area with black eschar of the whole anterior nose aspect some flattening. LUNGS: Airway patent. No retractions. Breath sounds clear HEART: Regular rate and rhythm. No chest wall tenderness ABDOMEN: Soft and non-tender, without guarding or rebound. SKIN: Acyanotic, warm, dry, without rashes EXTREMITIES: Without swelling, tenderness or deformity NEUROLOGICAL: No focal deficits. No aphasia. No facial droop or slurred speech. CONTINUOUS CARDIAC MONITORING: was ordered and showed a heart rate of 60s bpm in normal sinus rhythm Patient's laboratory studies reviewed. Differential includes infection, sepsis, skin graft failure/necrosis, dehydration, UTI, among others were considered. IMPRESSION/MEDICAL DECISION MAKING: Patient with recent extensive Mohs procedure now postop day 9. Discussed via phone with his lidar scientist Dr. Koroma as well as the [facility] doctor Dr. Arce who called. Patient evidently with some decreased output as well as incontinence issues. Has a Linares and received some IV fluids last 2 days in the alf doctor reports with some improvement of his mentation. Patient evidently has a picking habit and also has poor hygiene sometimes getting fecal matter on his hands and then touching his nose. There is concerns about infection versus viability of this nasal graft. He is may be a little bit more fatigued today as well. Initial triage vital with some hypotension but resolved upon my evaluation in the room. Does not have a documented or reported history of heart failure. With the patient's permission sent a picture to his lidar scientist for review. Covered with broad-spectrum antibiotics. Lactate and culture sent with obvious concern for possible sepsis. Given some fluid rehydration. Patient does have some evidence of an DONNIE likely from decreased intake and given again some IV fluids here. Chest x-ray not indicative of fluid overload or pneumonia at this time based on my review of the radiology report. Blood work does returned with a leukocytosis again consistent with concerns for infection and a mildly elevated lactate of 2.6. No severe electrolyte abnormalities noted. Negative COVID. Again discussed and sent pictures to his lidar scientist in town here who recommended antibiotic control and avoiding pressure to the pedicle region as well as covering area with Vaseline and mupirocin. Dr. Koroma states she could possibly debride the flap but wants to wait and see if this would survive. Did reached out to the [facility] ear nose throat doctor on-call to further discuss as I do not believe [facility] dermatology comes to this facility inpatient and could provide additional guidance while he is inpatient here. He states antibiotics would be first-line treatment and he would be able to come by and advise further but did not feel any emergent surgery would be indicated. Discussed with the [facility] hospitalist on-call. UA is also suspicious for an acute UTI with a history of urinary retention and Linares. DIAGNOSIS: Nasal skin graft infection, DONNIE, fatigue, diabetes, acute UTI DISPOSITION: Hospitalist will evaluate Patient was agreeable with this plan. Past Med/Surg History Medical History (Updated 01/13/23 @ 18:50 by Severino Justice M.D.) CHF (congestive heart failure) COPD (chronic obstructive pulmonary disease) Diabetes High blood pressure Surgical History H/O inguinal hernia repair History of appendectomy Hx of CABG No pertinent past surgical history Family History Father Coronary heart disease Diabetes Social History Smoking Status: Former smoker Tobacco Type: Cigarettes Hx Alcohol Use: No Hx Substance Use: No Preferred Language: Argentine Communication Ability: Effective Back Stayer Required: No Beliefs That Will Affect Care: None Current Living Situation: Other Current Living Situation Comment: [facility] Feels Safe at Home: Yes Assistive Devices: Denture - Upper, Denture - Lower and Wheelchair Allergies Allergies Allergy/AdvReac Type Severity Reaction Status Date / Time Sulfa (Sulfonamide Allergy Unknown ON SCI Verified 01/13/23 15:37 Antibiotics) [facility] MED LIST Home Meds Home Medications Medication Instructions Recorded Confirmed aspirin 81 mg tablet,delayed 81 mg PO DAILY 05/27/21 01/13/23 release ciclesonide 160 mcg/actuation 2 puff inhalation BID PRN 05/27/21 01/13/23 aerosol inhaler (Alvesco) Shortness Of Breath clopidogrel 75 mg tablet (Plavix) 75 mg PO DAILY 05/27/21 01/13/23 doxazosin 8 mg tablet (Cardura) 8 mg PO HS 05/27/21 01/13/23 insulin regular human 100 unit/mL 1 sliding scale dose subcut BID 05/27/21 01/13/23 injection solution (Novolin R Regular U-100 Insulin) isosorbide mononitrate 30 mg 30 mg PO DAILY 05/27/21 01/13/23 tablet,extended release 24 hr latanoprost 0.005 % eye drops 1 drp OPB HS 05/27/21 01/13/23 rosuvastatin 10 mg tablet (Crestor) 10 mg PO DAILY 05/27/21 01/13/23 albuterol sulfate 90 mcg/actuation 2 puff inhalation QID PRN 01/08/22 01/13/23 aerosol inhaler (Proventil HFA) Shortness Of Breath insulin NPH-regular 70-30 U-100 12 unit subcut BID 01/08/22 01/13/23 insulin 100 unit/mL subcutaneous pen (Novolin 70-30 FlexPen U-100 Insulin) bumetanide 1 mg tablet 1 mg PO DAILY 07/02/22 01/13/23 cranberry extract 250 mg capsule 250 mg PO DAILY 07/02/22 01/13/23 acetaminophen 300 mg-codeine 30 mg 1 tab PO TID 01/13/23 01/13/23 tablet fluoxetine 20 mg tablet 20 mg PO DAILY 01/13/23 01/13/23 levofloxacin 750 mg tablet 750 mg PO DAILY 01/13/23 01/13/23 lisinopril 40 mg tablet 40 mg PO DAILY 01/13/23 01/13/23 metoprolol tartrate 50 mg tablet 50 mg PO BID 01/13/23 01/13/23 Results & Data (ED) Vital Signs Vital Signs - 24 hr 01/13/23 13:33 01/13/23 14:15 Temperature 36.9 C Temperature Source Oral Pulse Rate 113 H Pulse Rate [Apical] 60 Respiratory Rate 22 18 Respiratory Effort / Characteristics Non-Labored Spontaneous Respiratory Depth Normal Blood Pressure 94/44 L Blood Pressure [Right Arm] 132/69 Blood Pressure Mean 60 Blood Pressure Mean [Right Arm] 90 Pulse Oximetry 97 93 Oxygen Delivery Method Room Air Room Air Sepsis Recent Fever Within 48 Hours No Sepsis New/Unexplained Change in Mental Status N/A Sepsis Action Taken by Nursing No Action Required Laboratory Data 01/13/23 14:13 01/13/23 14:13 Lab Results 01/13/23 01/13/23 01/13/23 Range/Units 14:13 14:13 14:13 WBC 11.30 H (4.8-10.8) K/ul RBC 4.58 L (4.70-6.10) M/uL Hgb 13.4 L (14.0-18.0) g/dl Hct 41.3 L (42.0-52.0) % MCV 90.2 (80.0-100.0) fL MCH 29.3 (25.0-34.0) pg MCHC 32.4 (32.0-36.0) g/dL RDW Std Deviation 44.2 (36.4-46.3) fL RDW Coeff of Sandrita 13.5 (11.5-14.5) % Plt Count 400 (130-400) K/uL MPV 10.0 (9.4-12.4) fL Immature Gran % (Auto) 0.5 % Neut % (Auto) 74.9 % Lymph % (Auto) 11.0 % [place] % (Auto) 11.0 % Eos % (Auto) 2.2 % Baso % (Auto) 0.4 % Neut # (Auto) 8.47 H (1.40-6.50) K/uL Lymph # (Auto) 1.24 (1.2-3.4) K/uL [place] # (Auto) 1.24 H (0.11-0.59) K/uL Eos # (Auto) 0.25 (0-0.50) K/uL Baso # (Auto) 0.04 (0-0.2) K/uL Immature Gran # (Auto) 0.06 (0.01-0.20) K/uL Sodium 138 (136-145) mmol/L Potassium 4.5 (3.5-5.1) mmol/L Chloride 101 (98-107) mmol/L Carbon Dioxide 29 (21-32) mmol/L Anion Gap 8 (3-11) BUN 30 H (6-23) mg/dl Creatinine 1.76 H (0.6-1.4) mg/dl Est Cr Clr Drug Dosing Not Reportable Est GFR ( Amer) 40.5 ml/min Est GFR (Non-Af Amer) 35.0 ml/min BUN/Creatinine Ratio 17.0 (10-20) Glucose 161 H (70-99(Fasting)) mg/dl Estimat Average Glucose mg/dl Hemoglobin A1c (4.5-5.6) % Lactate 2.6 H* (0.4-2.0) mmol/L Calcium 9.2 (8.6-10.3) mg/dl Total Bilirubin 0.6 (0.2-1.0) mg/dl AST 17 (13-39) U/L ALT 11 (7-52) U/L Alkaline Phosphatase 61 (34-104) U/L Total Protein 7.6 (6.0-8.3) gm/dl Albumin 3.7 (3.4-5.0) gm/dl Globulin 3.9 (2.5-4.0) gm/dl Albumin/Globulin Ratio 0.9 (0.9-2) Urine Color Urine Appearance (Clear) Urine pH (4.5-7.5) Ur Specific [place] (1.000-1.030) Urine Protein (Negative) Urine Glucose (UA) (Negative) Urine Ketones (Negative) Urine Blood (Negative) Urine Nitrite (Negative) Urine Bilirubin (Negative) Urine Urobilinogen (Negative) Ur Leukocyte Esterase (Negative) Urine WBC (Auto) (0-5) /hpf Urine RBC (Auto) (0-4) /hpf U Hyaline Cast (Auto) (0-5) /lpf U Epithel Cells (Auto) (0-5) /lpf Urine Bacteria (Auto) (Negative) Urine Yeast (None Prsent) SARS-CoV-2, RNA, NAAT (NEGATIVE) 01/13/23 01/13/23 01/13/23 Range/Units 14:13 14:43 15:27 WBC (4.8-10.8) K/ul RBC (4.70-6.10) M/uL Hgb (14.0-18.0) g/dl Hct (42.0-52.0) % MCV (80.0-100.0) fL MCH (25.0-34.0) pg MCHC (32.0-36.0) g/dL RDW Std Deviation (36.4-46.3) fL RDW Coeff of Sandrita (11.5-14.5) % Plt Count (130-400) K/uL MPV (9.4-12.4) fL Immature Gran % (Auto) % Neut % (Auto) % Lymph % (Auto) % [place] % (Auto) % Eos % (Auto) % Baso % (Auto) % Neut # (Auto) (1.40-6.50) K/uL Lymph # (Auto) (1.2-3.4) K/uL [place] # (Auto) (0.11-0.59) K/uL Eos # (Auto) (0-0.50) K/uL Baso # (Auto) (0-0.2) K/uL Immature Gran # (Auto) (0.01-0.20) K/uL Sodium (136-145) mmol/L Potassium (3.5-5.1) mmol/L Chloride (98-107) mmol/L Carbon Dioxide (21-32) mmol/L Anion Gap (3-11) BUN (6-23) mg/dl Creatinine (0.6-1.4) mg/dl Est Cr Clr Drug Dosing Est GFR ( Amer) ml/min Est GFR (Non-Af Amer) ml/min BUN/Creatinine Ratio (10-20) Glucose (70-99(Fasting)) mg/dl Estimat Average Glucose 154 mg/dl Hemoglobin A1c 7.0 H (4.5-5.6) % Lactate (0.4-2.0) mmol/L Calcium (8.6-10.3) mg/dl Total Bilirubin (0.2-1.0) mg/dl AST (13-39) U/L ALT (7-52) U/L Alkaline Phosphatase (34-104) U/L Total Protein (6.0-8.3) gm/dl Albumin (3.4-5.0) gm/dl Globulin (2.5-4.0) gm/dl Albumin/Globulin Ratio (0.9-2) Urine Color [place] Urine Appearance Cloudy A (Clear) Urine pH 5.5 (4.5-7.5) Ur Specific [place] 1.017 (1.000-1.030) Urine Protein 2+ H (Negative) Urine Glucose (UA) Negative (Negative) Urine Ketones Trace H (Negative) Urine Blood 3+ H (Negative) Urine Nitrite Negative (Negative) Urine Bilirubin Negative (Negative) Urine Urobilinogen Negative (Negative) Ur Leukocyte Esterase 2+ H (Negative) Urine WBC (Auto) >30 H (0-5) /hpf Urine RBC (Auto) >30 H (0-4) /hpf U Hyaline Cast (Auto) 1-5 (0-5) /lpf U Epithel Cells (Auto) 5-10 H (0-5) /lpf Urine Bacteria (Auto) 1+ H (Negative) Urine Yeast Present A (None Prsent) SARS-CoV-2, RNA, NAAT NEGATIVE (NEGATIVE) Administered Medications Vancomycin HCl 2,250 mg/ (Sodium Chloride) 545 mls @ 200 mls/hr IV NOW ONE Stop: 01/13/23 18:59 Last Admin: 01/13/23 17:07 Dose: 200 mls/hr Documented By: STEPHANI Mupirocin (Mupirocin 2% Oint 22 Gm Tube) 1 appln EXT BID MENDOZA Stop: 02/12/23 20:59 Last Admin: 01/13/23 16:23 Dose: 1 appln Documented By: STEPHANI Discontinued Medications Sodium Chloride (Nss) 500 mls @ 999 mls/hr IV .Q31M ONE Stop: 01/13/23 14:33 Last Infusion: 01/13/23 15:28 Dose: 0 mls/hr Documented By: Admin: 01/13/23 14:20 Dose: 999 mls/hr Documented By: QGV Piperacillin Sod/Tazobactam Sod (Zosyn) 4.5 gm in 120 mls @ 240 mls/hr IV NOW ONE Stop: 01/13/23 14:34 Last Infusion: 01/13/23 15:28 Dose: 0 mls/hr Documented By: Admin: 01/13/23 14:41 Dose: 240 mls/hr Documented By: AP Imaging Data Radiologist's Impression: Chest X-Ray 01/13/23 14:39 XR chest 1V portable CLINICAL HISTORY: ?infection TECHNIQUE: Single frontal radiograph of the chest was obtained. Comparison: Comparison is made to chest radiograph 07/28/2022 FINDINGS: No lines and tubes are seen. Cardiomegaly is noted. The aortic arch is calcified. Lungs are underinflated but clear. No evidence of pleural effusion or pneumothorax. IMPRESSION: No acute abnormalities and in particular no radiographic evidence of pneumonia. ACT 112: Negative or not required by law. Electronically signed by: Juan Pennington M.D. 01/13/2023 3:15 PM Discharge Plan Visit Data Chief Complaint: Infection Stated Complaint: SKIN GRAFT ON NOSE IS INFECTED, CONFUSED ED Provider: Severino Justice Discharge Problem: Infected skin graft, DONNIE (acute kidney injury), Fatigue, Acute UTI Patient Disposition: Being Evaluated by Hospitalist Discharge Instructions Interventions: ED Discharge Assessment Last Done: 01/13/23 18:18
[2023-01-13 14:43] LABS: Basophils # (auto) 0.04 K/uL (0-0.2); Basophils % (auto) 0.4 %; Eosinophils # (auto) 0.25 K/uL (0-0.50); Eosinophils % (auto) 2.2 %; Hematocrit (blood only) 41.3 % (42.0-52.0); Hemoglobin 13.4 g/dl (14.0-18.0); Immature Granulocytes # (auto) 0.06 K/uL (0.01-0.20); Immature Granulocytes % (auto) 0.5 %; Lymphocytes # (auto) 1.24 K/uL (1.2-3.4); Mean Corpuscular Hemoglobin 29.3 pg (25.0-34.0); Mean Corpuscular Hgb Conc 32.4 g/dL (32.0-36.0); Mean Corpuscular Volume 90.2 fL (80.0-100.0); Monocytes # (auto) 1.24 K/uL (0.11-0.59); Neutrophils # (auto) 8.47 K/uL (1.40-6.50); Neutrophils % (auto) 74.9 %; Platelet Count 400 K/uL (130-400); RDW Coefficient of Variation 13.5 % (11.5-14.5); RDW Standard Deviation 44.2 fL (36.4-46.3); Red Blood Count 4.58 M/uL (4.70-6.10)
[2023-01-13 14:59] LABS: Alanine Aminotransferase 11 U/L (7-52); Albumin Globulin Ratio 0.9 (0.9-2); Albumin Level 3.7 gm/dl (3.4-5.0); Alkaline Phosphatase 61 U/L (34-104); Anion Gap 8 (3-11); Aspartate Aminotransferase 17 U/L (13-39); Bilirubin,Total 0.6 mg/dl (0.2-1.0); Blood Urea Nitrogen 30 mg/dl (6-23); Calcium 9.2 mg/dl (8.6-10.3); Carbon Dioxide 29 mmol/L (21-32); Chloride 101 mmol/L (98-107); Est GFR (African American) 40.5 ml/min; Globulin 3.9 gm/dl (2.5-4.0); Glucose 161 mg/dl (70-99(Fasting)); Potassium 4.5 mmol/L (3.5-5.1); Sodium 138 mmol/L (136-145); Total Protein 7.6 gm/dl (6.0-8.3)
--- NOTE | 2023-01-13 15:17 | XRay Report ---
XR chest 1V portable CLINICAL HISTORY: ?infection TECHNIQUE: Single frontal radiograph of the chest was obtained. Comparison: Comparison is made to chest radiograph 07/28/2022 FINDINGS: No lines and tubes are seen. Cardiomegaly is noted. The aortic arch is calcified. Lungs are underinfl ated but clear. No evidence of pleural effusion or pneumothorax. IMPRESSION: No acute abnormalities and in particular no radiographic evidence of pneumonia. ACT 112: Negative or not required by law. Electronically signed by: Juan Pennington M.D. 01/13/2023 3:15 PM
[2023-01-13 15:59] LABS: Appearance Urine Cloudy (Clear); Bilirubin Urine Negative (Negative); Blood Urine 3+ (Negative); Color Urine Orange; Glucose Urine UA Negative (Negative); Ketones Urine Trace (Negative); Leukocyte Esterase Urine 2+ (Negative); Nitrite Urine Negative (Negative); Protein Urine 2+ (Negative); Specific Gravity Urine 1.017 (1.000-1.030); Urobilinogen Urine Negative (Negative); WBC Urine Automated >30 /hpf (0-5); pH Urine 5.5 (4.5-7.5)
[2023-01-13] MEDS ORDERED: VANCOMYCIN CONSULT ACTIVE PRN ×2 (16:16→17:05)
[2023-01-13] MEDS ORDERED: VANCOMYCIN HCL 2,250 MG in SODIUM CHLORIDE 0.9% 500 ML IV ONE (16:16)
[2023-01-13] MEDS ORDERED: ALUMINUM/MAGNESIUM SUSP 30 ML UDC PO PRN (16:19)
[2023-01-13] MEDS ORDERED: ONDANSETRON INJ 2 MG/ML 2 ML VIAL IV PRN (16:19)
[2023-01-13] MEDS ORDERED: POLYETHYLENE (MIRALAX) 17 GM PACK PO PRN (16:19)
[2023-01-13] MEDS: MUPIROCIN 2% OINT 22 GM TUBE EXT SCH (16:23)
[2023-01-13 16:25] LABS: RBC Urine Automated >30 /hpf (0-4)
[2023-01-13 16:26] LABS: Bacteria Urine Automated 1+ (Negative)
--- NOTE | 2023-01-13 16:34 | History & Physical Report ---
Date of Service January 13, 2023 Assessment & Plan (1) DONNIE (acute kidney injury): (2) Infected skin graft: (3) Fatigue: (4) CAD (coronary artery disease): (5) COPD (chronic obstructive pulmonary disease): (6) DONNIE (acute kidney injury): (7) Insulin dependent diabetes mellitus: (8) CHF (congestive heart failure): Plan 82 y/o from [place] presents to the [facility] with increased fatigue and pain in his nose. Patient is POD # 9 s/p MOHS procedure under the care of Dr. Koroma wit h skin flaps and cartilage from ear. + purulent drainage and eschar. ENT to evaluate for intervention that would be additional to abx. No pain at site. Pt is known to pick at wounds and put stool in his wounds. Infected skin graft: Fatigue: POD #9 MOHS procedure under the care of Dr. Koroma with skin flaps and cartilage from ear Initially on Keflex--> Ciprofloxacin--> Levaquin. Today, eschar and black with purulent drainage Lactate 2.6; will trend Mg+ pending ED discussed with Dr. Koroma and recommended Vasoline and Bursiprocin ED discussed with ENT Dr. Cartagena who will evaluate the patient; ENT consult placed DONNIE on CKD: likely d/t infection and fatigue. Creatinine 1.76; Takes Bumex; will hold and also hold giving any additional fluids Received 500mL NSB; will trend creatinine Hold nephrotoxic agents 500mL IVB in ED: hold add'l fluid as pt takes Bumex; will readdress creatinine in AM. COPD: History of cigarette smoking with an approximately 31-[id number]-gtes history cigarette smoking. Patient quit smoking years ago Takes Albuterol PRN CAD: HTN: Continue ASA and Plavix Takes Lisinopril; hold due to DONNIE Takes Metoprolol and Imdur; continue Insulin dependent diabetes mellitus: Uses Novolin; will continue with ACHS FSBS and SSI with CHO4 counting. Will check A1C Depression: Takes Fluoxetine; continue HLD: Takes rosuvastatin; continue Check lipid panel BPH: Takes Doxazosin; continue Chronic lloyd; called [facility] to see when it was placed at [phone] but no answer UA + UTI; on IV abx that will cover. Obtain urine culture and adjust as needed GERD: Takes levothyroxine; continue Disposition: PCP: ANNY Romero Code Status: Full Code VTE Prophylaxis: TEDS/SCDs for now I spent a total of 88 minutes coordinating, documenting, and providing care for this patient excluding time spent in the performance of separately billed services. All of the aforementioned completed while collaborating with the assigned attending physician for a full treatment plan. Please see their addendum for further details. History of Present Illness Chief Complaint: fatigue and pain Primary Care Provider: ANNY Romero 82 y/o from [place] presents to the [facility] with increased fatigue and pain in his nose. Patient is POD # 9 s/p MOHS procedure under the care of Dr. Koroma with ear cartilage graft and fold over forehead flap. Surgicel has been wrapped around the nasal trunk as an outpatient. + purulent drainage and eschar noted since sutures have been removed on 01/11. He reports that his nose has been running in the mornings. Patient has failed numerous antibiotics including Keflex, Cipro, and Levaquin. His Lactate was elevated in ED 2.6. ED discussed with Dr. Koroma and recommended Vasoline and Bursiprocin; ED discussed with ENT Dr. Cartagena who will evaluate patient. Some DONNIE noted likely related to decreased intake, infection and fatigue. Positive response with IV Fluids. Pt also takes Bumex; will hold for now and readdress fluids as needed. Additional PMH includes: CAD (on ASA and Plavix), COPD, HTN, IDDM2, BPH with chronic lloyd and follows with Dr. Au, depression, HLD, Patient reports having a headache and fever/chills. Pt denies CP, SOB, palpitations, N/V/D, abdominal pain, bowel or bladder changes, recent falls or trauma. Patient will be admitted for further evaluation and management. Please see A/P for further details. Allergies Allergy/AdvReac Type Severity Reaction Status Date / Time Sulfa (Sulfonamide Allergy Unknown ON [facility] Verified 01/13/23 15:37 Antibiotics) [facility] MED LIST Home Medications Medication Instructions Recorded Confirmed Type aspirin 81 mg tablet,delayed 81 mg PO DAILY 05/27/21 01/13/23 History release ciclesonide 160 mcg/actuation 2 puff inhalation BID PRN 05/27/21 01/13/23 History aerosol inhaler (Alvesco) Shortness Of Breath clopidogrel 75 mg tablet (Plavix) 75 mg PO DAILY 05/27/21 01/13/23 History doxazosin 8 mg tablet (Cardura) 8 mg PO HS 05/27/21 01/13/23 History insulin regular human 100 unit/mL 1 sliding scale dose subcut BID 05/27/21 01/13/23 History injection solution (Novolin R Regular U-100 Insulin) isosorbide mononitrate 30 mg 30 mg PO DAILY 05/27/21 01/13/23 History tablet,extended release 24 hr latanoprost 0.005 % eye drops 1 drp OPB HS 05/27/21 01/13/23 History rosuvastatin 10 mg tablet (Crestor) 10 mg PO DAILY 05/27/21 01/13/23 History albuterol sulfate 90 mcg/actuation 2 puff inhalation QID PRN 01/08/22 01/13/23 History aerosol inhaler (Proventil HFA) Shortness Of Breath insulin NPH-regular 70-30 U-100 12 unit subcut BID 01/08/22 01/13/23 History insulin 100 unit/mL subcutaneous pen (Novolin 70-30 FlexPen U-100 Insulin) bumetanide 1 mg tablet 1 mg PO DAILY 07/02/22 01/13/23 History cranberry extract 250 mg capsule 250 mg PO DAILY 07/02/22 01/13/23 History acetaminophen 300 mg-codeine 30 mg 1 tab PO TID 01/13/23 01/13/23 History tablet fluoxetine 20 mg tablet 20 mg PO DAILY 01/13/23 01/13/23 History levofloxacin 750 mg tablet 750 mg PO DAILY 01/13/23 01/13/23 History lisinopril 40 mg tablet 40 mg PO DAILY 01/13/23 01/13/23 History metoprolol tartrate 50 mg tablet 50 mg PO BID 01/13/23 01/13/23 History Past Med/Surg History Medical History (Updated 01/13/23 @ 16:28 by JENNIFER Gaines) CHF (congestive heart failure) COPD (chronic obstructive pulmonary disease) Diabetes High blood pressure Surgical History H/O inguinal hernia repair History of appendectomy Hx of CABG No pertinent past surgical history Family History Father Coronary heart disease Diabetes Social History Smoking Status: Former smoker Tobacco Type: Cigarettes Hx Alcohol Use: No Hx Substance Use: No Preferred Language: Kazakh Communication Ability: Effective [employer] Person Required: No Beliefs That Will Affect Care: None Current Living Situation: Other Current Living Situation Comment: [facility] Feels Safe at Home: Yes Assistive Devices: Denture - Upper, Denture - Lower and Wheelchair Review of Systems Review of Systems: Neuro: (-) Falls, trauma, slurred speech HEENT: (-) HONG, dizziness, dysphagia, visual or auditory changes CV: (-) CP, palpitations, swelling Resp: (-) SOB GI: (-) appetite changes, N/V/D, bowel changes : (-) urinary changes Skin: (-) rashes Psych: (-) anxiety, depression Physical Exam Physical Exam: See Dr. Souza's physical examination findings in his addendum for further details Results & Data Results & Data Vital Signs (Past 12 Hours) Vital Signs Temp Pulse Pulse Resp BP BP Pulse Ox 01/13/23 14:15 36.9 C 60 18 132/69 93 01/13/23 13:33 113 H 22 94/44 L 97 O2 Del Method 01/13/23 14:15 Room Air 01/13/23 13:33 Room Air Laboratory Results Short CBC 01/13/23 Range/Units 14:13 WBC 11.30 H (4.8-10.8) K/ul Hgb 13.4 L (14.0-18.0) g/dl Hct 41.3 L (42.0-52.0) % Plt Count 400 (130-400) K/uL BMP 01/13/23 14:13 Sodium 138 Potassium 4.5 Chloride 101 Carbon Dioxide 29 BUN 30 H Creatinine 1.76 H Glucose 161 H Calcium 9.2 Liver Function 01/13/23 Range/Units 14:13 Total Bilirubin 0.6 (0.2-1.0) mg/dl AST 17 (13-39) U/L ALT 11 (7-52) U/L Alkaline Phosphatase 61 (34-104) U/L Albumin 3.7 (3.4-5.0) gm/dl Urine 01/13/23 Range/Units 15:27 Urine Color [place] Urine Appearance Cloudy A (Clear) Urine pH 5.5 (4.5-7.5) Ur Specific [place] 1.017 (1.000-1.030) Urine Protein 2+ H (Negative) Urine Glucose (UA) Negative (Negative) Diagnostic Findings Chest X-Ray 01/13/23 14:39 XR chest 1V portable CLINICAL HISTORY: ?infection TECHNIQUE: Single frontal radiograph of the chest was obtained. Comparison: Comparison is made to chest radiograph 07/28/2022 FINDINGS: No lines and tubes are seen. Cardiomegaly is noted. The aortic arch is calci fied. Lungs are underinflated but clear. No evidence of pleural effusion or pneumothorax. IMPRESSION: No acute abnormalities and in particular no radiographic evidence of pneumonia. ACT 112: Negative or not required by law. Electronically signed by: Juan Pennington M.D. 01/13/2023 3:15 PM Code Status & VTE Plan Code Status Full Code in the event of cardiac or respiratory arrest VTE Prophylaxis Plan VTE Prophylaxis will be ordered: Yes Supervising Physician Co-Signing Physician Notes History and physical exam performed by ut History notable for 82-year-old man with diabetes mellitus, CAD, depression and other medical problems as detailed who presents for possible infection at surgical site with drainage. Patient had recent Mohs procedure on nose with skin flaps. History from ER physician as patient is a poor historian. On exam, General: Obese man Eyes: PERRL, not pale ENMT: Most of the anterior part of nose involving tip is black and appear necrotic. Respiratory: Normal respiratory effort, no respiratory distress, lungs clear to auscultation, no crackles and no wheezes Cardiovascular: RRR S1 S2 Gastrointestinal (Abdomen): Abdomen is not distended, soft, non-tender to palpation, no guarding, no palpable hepatosplenomegaly, normal bowel sounds Musculoskeletal: No pedal edema Genitourinary: Lloyd in situ Neurologic: Alert and oriented to person and place only, No focal weakness, sensation grossly intact Psychiatric: Euthymic affect Labs notable for hemoglobin of 13.4, hemoglobin of 11.3, creatinine of 1.76, lactate was 2.6 improved to 1.5, UA was cloudy with leukocyte esterase WBC. Tip of nose and a good portion appear necrotic ER physician already contacted Dr Vega. Patient may likely need a debridement. Continue broad-spectrum antibiotics for now with Vanco and Zosyn. Patient currently denies any complaints. Monitor for any signs of intracranial infection/thrombosis considering location of infection. Continue insulin per protocol. Optimize glycemic control. Hold home diuretic for now monitor renal function. Has chronic lloyd. Attending tomorrow will need to confirm with correctional facility when it was changed Other plans as detailed by Teresa RODRIGUEZ (3) Fatigue Fatigue type: unspecified Qualified Code(s): R53.83 - Other fatigue
--- NOTE | 2023-01-13 17:08 | Communication Note ---
Date of Service: January 13, 2023 History and physical exam performed by me History notable for 82-year-old man with diabetes mellitus, CAD, depression and other medical problems as detailed who presents for possible infection at surgical site with drainage. Patient had recent Mohs procedure on nose with skin flaps. History from ER physician as patient is a poor historian. On exam, General: Obese man Eyes: PERRL, not pale ENMT: Most of the anterior part of nose involving tip is black and appear necrotic. Respiratory: Normal respiratory effort, no respiratory distress, lungs clear to auscultation, no crackles and no wheezes Cardiovascular: RRR S1 S2 Gastrointestinal (Abdomen): Abdomen is not distended, soft, non-tender to palpation, no guarding, no palpable hepatosplenomegaly, normal bowel sounds Musculoskeletal: No pedal edema Genitourinary: Lloyd in situ Neurologic: Alert and oriented to person and place only, No focal weakness, sensation grossly intact Psychiatric: Euthymic affect Labs notable for hemoglobin of 13.4, hemoglobin of 11.3, creatinine of 1.76, lactate was 2.6 improved to 1.5, UA was cloudy with leukocyte esterase WBC. Tip of nose and a good portion appear necrotic ER physician already contacted Dr Vega. Patient may likely need a debridement. Continue broad-spectrum antibiotics for now with Vanco and Zosyn. Patient currently denies any complaints. Monitor for any signs of intracranial infection/thrombosis considering location of infection. Continue insulin per protocol. Optimize glycemic control. Hold home diuretic for now monitor renal function. Has chronic lloyd. Attending tomorrow will need to confirm with correctional facility when it was changed Other plans as detailed by Teresa RODRIGUEZ
[2023-01-13 17:15] LABS: Estimated Average Glucose 154 mg/dl
[2023-01-13] MEDS ORDERED: VANCOMYCIN HCL 1,000 MG in SODIUM CHLORIDE 0.9% 250 ML IV SCH (17:15)
[2023-01-13] MEDS ORDERED: DEXTROSE 50% 50 ML SYRINGE IV PRN (17:29)
[2023-01-13] MEDS ORDERED: GLUCOSE 40% GEL 15 GM TUBE PO PRN (17:29)
[2023-01-13] MEDS ORDERED: GLUCAGON FOR INJ 1 MG VIAL SQ PRN (17:29)
[2023-01-13] MEDS ORDERED: CARBOHYDRATES FOR HYPOGLYCEMIA PO PRN (17:29)
[2023-01-13] MEDS ORDERED: PHARMACY GLYCEMIC MGMT CONSULT PRN (17:29)
[2023-01-13] MEDS ORDERED: GLUCOSE 10 TAB/TUBE PO PRN (17:29)
--- NOTE | 2023-01-13 19:30 | ENT Consultation ---
Date of Consultation January 13, 2023 Assessment & Plan (1) Failed flap: 1. The Scalp and Right Ear Donor Sites are intact and healing well. No signs of infection. Would continue with daily topical care with cleaning with hydrogen peroxide solution wipes and placement of bacitracin ointment twice a day. 2. The Median Forehead Flap is ischemic and has failed. The Hard Black Eschar is mummified / necrotic tissue. IV antibiotics are not going to revive this failed flap. While IV antibiotics may help reduce some of the weeping and cellulitis at the surgical wound and flap edges - the admission is more for his multiple medical problems management and stabilization. I do not see flap infection - but ischemia. The Necrotic Failed flap at this point needs to be debrided and tissue excised. This reconstruction failure would best be address by Dr. Koroma, as available - or by a Facial / Plastic Surgeon of her referral who would assume the care and management of this imposing facial defect. Present on Admission?: Yes Plan 1. The Scalp and Right Ear Donor Sites are intact and healing well. No signs of infection. Would continue with daily topical care with cleaning with hydrogen peroxide solution wipes and placement of bacitracin ointment twice a day. 2. The Median Forehead Flap is ischemic and has failed. The Hard Black Eschar is mummified / necrotic tissue. IV antibiotics are not going to revive this failed flap. While IV antibiotics may help reduce some of the weeping and cellulitis at the surgical wound and flap edges - the admission is more for his multiple medical problems management and stabilization. I do not see flap infection - but ischemia. The Necrotic Failed flap at this point needs to be debrided and tissue excised. This reconstruction failure would best be address by Dr. Koroma, as available - or by a Facial / Plastic Surgeon of her referral who would assume the care and management of this imposing facial defect. History of Present Illness Reason for Consultation: MOHS Reconstruction of Nose with Forehead flap complication. Requesting Physician: Dr. Severino Justice - [facility] and Dr. Teresa Niño - [facility] Hospitalist. Attending Physician: Montse Souza MD History of Present Illness Nelson Wood is an 82-year-old incarcerated gentleman - who was sent from [facility] today for worsening appearance of his Nasal Reconstruction by Dr. Koroma of MOHS surgery. Black Hard Eschar noted in the infirmary and he transferred for IV antibiotics. 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 By Dr. Lizandro Koroma of [facility] MOHS Dept. Patient was seen by Dr. Koroma on (06 JANUARY 2023) had some bleeding from the flap edges and she reported that the Flap looked good 2 days post-op. Nayan was later seen at [facility] for wound bleeding last week. Current reports Had some sutures removed 2 days ago according to him and guards. Started on Levaquin @ [facility] yesterday for possible infection. Patient appeared more fatigued and having increasing pain complaints and the findings were discussed wtih Dr. Koroma today - who recommended that the patient be sent to [facility] for further evaluation. Patient with Multiple Medical problems and several chronic medications. He has a history of CAD, COPD, diabetes, and BPH/UTI presenting here today referred from the infirmary at [facility]. Fevers acutely reported. A Free Cartilage from the RIGHT ear was used in the nose reconstruction as well. He is POST-OP DAY NINE (9) from his Rotation Flap Reconstruction. Allergies Allergy/AdvReac Type Severity Reaction Status Date / Time Sulfa (Sulfonamide Allergy Unknown ON [facility] Verified 01/13/23 15:37 Antibiotics) [facility] MED LIST Home Medications Medication Instructions Recorded Confirmed Type aspirin 81 mg tablet,delayed 81 mg PO DAILY 05/27/21 01/13/23 History release ciclesonide 160 mcg/actuation 2 puff inhalation BID PRN 05/27/21 01/13/23 History aerosol inhaler (Alvesco) Shortness Of Breath clopidogrel 75 mg tablet (Plavix) 75 mg PO DAILY 05/27/21 01/13/23 History doxazosin 8 mg tablet (Cardura) 8 mg PO HS 05/27/21 01/13/23 History insulin regular human 100 unit/mL 1 sliding scale dose subcut BID 05/27/21 01/13/23 History injection solution (Novolin R Regular U-100 Insulin) isosorbide mononitrate 30 mg 30 mg PO DAILY 05/27/21 01/13/23 History tablet,extended release 24 hr latanoprost 0.005 % eye drops 1 drp OPB HS 05/27/21 01/13/23 History rosuvastatin 10 mg tablet (Crestor) 10 mg PO DAILY 05/27/21 01/13/23 History albuterol sulfate 90 mcg/actuation 2 puff inhalation QID PRN 01/08/22 01/13/23 History aerosol inhaler (Proventil HFA) Shortness Of Breath insulin NPH-regular 70-30 U-100 12 unit subcut BID 01/08/22 01/13/23 History insulin 100 unit/mL subcutaneous pen (Novolin 70-30 FlexPen U-100 Insulin) bumetanide 1 mg tablet 1 mg PO DAILY 07/02/22 01/13/23 History cranberry extract 250 mg capsule 250 mg PO DAILY 07/02/22 01/13/23 History acetaminophen 300 mg-codeine 30 mg 1 tab PO TID 01/13/23 01/13/23 History tablet fluoxetine 20 mg tablet 20 mg PO DAILY 01/13/23 01/13/23 History levofloxacin 750 mg tablet 750 mg PO DAILY 01/13/23 01/13/23 History lisinopril 40 mg tablet 40 mg PO DAILY 01/13/23 01/13/23 History metoprolol tartrate 50 mg tablet 50 mg PO BID 01/13/23 01/13/23 History Patient History Medical History CHF (congestive heart failure) COPD (chronic obstructive pulmonary disease) Diabetes High blood pressure Surgical History H/O inguinal hernia repair History of appendectomy Hx of CABG No pertinent past surgical history Family History Father Coronary heart disease Diabetes Social History Smoking Status: Former smoker Tobacco Type: Cigarettes Hx Alcohol Use: No Hx Substance Use: No Preferred Language: Belarusian Communication Ability: Effective Lumber Tallier Required: No Beliefs That Will Affect Care: None Current Living Situation: Other Current Living Situation Comment: [facility] Feels Safe at Home: Yes Assistive Devices: Denture - Upper, Denture - Lower and Wheelchair Review of Systems Review of Systems: Patient is unreliable historian. Systems reviewed and are noted in his Admission History and Physical Constitutional: Patient is sitting up in the ED [facility]. He is presently eating a [employer] [place]. Eyes: no diplopia and no problem reported Ear, Nose, Mouth, Throat: no dizziness, no nasal discharge and no foul smell Respiratory: no cough, no hemoptysis and no pain on inspiration Physical Exam Physical Exam: Patient is alert - sitting up eating his meal. Conversant. Aware of surroundings. Constitutional: well developed, well nourished, + obese and + disheveled Eyes: PERRL, conjunctivae normal, anicteric sclerae ENMT: Ears: + external ear abnormality (RIGHT Ear post-auric donor site is healing. NO infection. ) Nose: + external nose abnormality Mouth: + dentures and + edentulous; no oropharynx abnormality, no oral mucosal abnormality and no tongue abnormality There is a large RIGHT Superior Scalp DEFECT from the Donor Site of the Randomized Median Forehead Flap. It is skin grafted. The Median Forehead Flap is rotated to the Nasal Tip area. There is Hard Black Eschar covering the entire distal half of the forehead flap over the nasal dorsum / tip / and alar areas. The Forehead DONOR Site incision is intact. There is NO active bleeding. NO active discharge from the nares. The nasal airways are patent and the patient is breathing through his nose. Neck: trachea midline, no thyromegaly no neck crepitus NO neck masses, NO adenopathy. Respiratory: normal respiratory effort, lungs clear to auscultation no respiratory distress and no stridor Results & Data Vital Signs (Past 12 Hours) Vital Signs Temp Pulse Pulse Resp BP BP Pulse Ox 01/13/23 15:09 65 01/13/23 17:17 65 15 132/69 96 01/13/23 14:15 36.9 C 60 18 132/69 93 01/13/23 13:33 113 H 22 94/44 L 97 O2 Del Method 01/13/23 15:09 01/13/23 17:17 Room Air 01/13/23 14:15 Room Air 01/13/23 13:33 Room Air Laboratory Results WBC = 11.3 Hgb 13.4 g/dl Hct 41.3 %
[2023-01-13] MEDS: INSULIN ASPART PER UNIT CHARGE SC SCH (21:56)
[2023-01-13] MEDS: DOXAZosin MESYLATE 4 MG TAB PO SCH (22:10)
[2023-01-13] MEDS: METOPROLOL TARTRATE 50 MG TAB PO SCH (22:11)
[2023-01-13] MEDS: LANTUS PER UNIT CHARGE SQ SCH (22:15)
[2023-01-13] MEDS: PIPERACILLIN/TAZOBACTAM 4.5 GM in DEXTROSE 5% 100 ML IV SCH (22:32)
[2023-01-13] MEDS: ACETAMINOPHEN 325 MG TAB PO PRN (22:39)
[2023-01-14] MEDS: PIPERACILLIN/TAZOBACTAM 4.5 GM in DEXTROSE 5% 100 ML IV SCH ×3 (06:56→23:47)
[2023-01-14 07:02] LABS: Hematocrit (blood only) 35.5 % (42.0-52.0); Hemoglobin 12.1 g/dl (14.0-18.0); Mean Corpuscular Hemoglobin 29.4 pg (25.0-34.0); Mean Corpuscular Hgb Conc 34.1 g/dL (32.0-36.0); Mean Corpuscular Volume 86.2 fL (80.0-100.0); Mean Platelet Volume 9.5 fL (9.4-12.4); Platelet Count 311 K/uL (130-400); RDW Coefficient of Variation 13.3 % (11.5-14.5); Red Blood Count 4.12 M/uL (4.70-6.10); White Blood Count 9.05 K/ul (4.8-10.8)
[2023-01-14 07:08] LABS: BUN Creatinine Ratio 20.7 (10-20); Calcium 8.4 mg/dl (8.6-10.3); Creatinine Clr Calc Pharmacy 49.6 ml/min; Est GFR (African American) 53.5 ml/min; Est GFR (Non-African American) 46.1 ml/min; Potassium 4.2 mmol/L (3.5-5.1)
[2023-01-14] MEDS: CLOPIDOGREL BISULFATE 75 MG TAB PO SCH (08:52)
[2023-01-14] MEDS: FLUoxetine HCL 20 MG CAP PO SCH (08:52)
[2023-01-14] MEDS: ASPIRIN 81 MG ECTAB PO SCH (08:52)
[2023-01-14] MEDS: ISOSORBIDE MONO EXTENDED REL 30 MG TABCR PO SCH (08:52)
[2023-01-14] MEDS: METOPROLOL TARTRATE 50 MG TAB PO SCH ×2 (08:52→19:46)
[2023-01-14] MEDS: ROSUVASTATIN CALCIUM 10 MG TAB PO SCH (08:52)
[2023-01-14] MEDS: LANTUS PER UNIT CHARGE SQ SCH ×2 (08:54→20:33)
[2023-01-14] MEDS: INSULIN ASPART PER UNIT CHARGE SC SCH ×4 (09:04→20:33)
[2023-01-14] MEDS: MUPIROCIN 2% OINT 22 GM TUBE EXT SCH ×2 (09:04→19:47)
--- NOTE | 2023-01-14 09:04 | Pharmacy Report ---
Pharmacy Vanc AUC Short Note - Date of Service January 14, 2023 - Assessment & Plan Assessment 82 year old M started on vancomycin and zosyn yesterday due to concerns for potential surgical site infection. Per EENT notes, do not believe infection but feel that necrotic tissue needs debrided. Cultures currently pending at this time. Day # 2 of antimicrobial therapy. Plan Vancomycin * AUC/LUDWIG is the preferred PK/PD target for vancomycin * AUC guided dosing is effective and associated with decreased risk of nephrotoxicity compared to traditional trough targets * Patient received loading dose of vancomycin 2250 mg x 1 last evening, ordered vancomycin 1250 mg iv q 24 hours. * This dosing is estimated to produce a trough level of ~15 mcg/ml and to achieve target AUC/LUDWIG of 400-600 mg/L.hr and may be associated with a 10 % risk of nephrotoxicity * Scr continues to improve more today, will order random level for vancomycin tomorrow AM to assist with further dosing Pharmacy will continue to follow and will adjust dose/frequency as necessary. Thank you.
[2023-01-14] MEDS: FLUTICASONE FUROATE 100MCG 14 PUFFS/INHALER INH SCH (09:49)
--- NOTE | 2023-01-14 09:53 | Pharmacy Report ---
Pharmacy Glycemic Short Note 2 - Date of Service January 14, 2023 - Glycemic Short BSG Results (Last 24 hours): 01/13/23 01/13/23 01/14/23 14:13 21:51 06:37 Glucose 161 H 115 H POC Glucose 118 H 01/14/23 07:14 Glucose POC Glucose 112 H OUTPATIENT ANTIDIABETIC REGIMEN: * Novolin 70/30 - 12 units bid, novolin R SSI * A1c 7% ASSESSMENT: * 82 year old admitted due to concerns for infection. Type 2 diabetic managed on mix insulin outpatient * Fasting BSG 115 mg/dL - No basal insulin given last evening. Will continue with basal scale 0-10 units bid based upon BSG value. Will not receive any basal this AM * Lunch BSG stable 139 mg/dL - continue same novolog parameters for now PLAN FOR INPATIENT GLYCEMIC CONTROL: * Hold outpatient oral diabetes medications * Basal insulin * Lantus 0-10 units SQ BID * Bolus insulin * NovoLog per scale ACHS or Q6hrs while NPO * Goal Range: Low 120 mg/dL - High 160 mg/dL * Correction Factor: 20 mg/dL/unit * Nutritional / Prandial insulin per carb ratio of 1 unit per 7 grams CHO consumed
[2023-01-14] MEDS: MAGNESIUM HYDROXIDE SUSP 30 ML UDC PO PRN (10:54)
--- NOTE | 2023-01-14 11:54 | Hospitalist Progress Note ---
Date of Service January 14, 2023 Assessment & Plan (1) DONNIE (acute kidney injury): (2) Infected skin graft: (3) Fatigue: (4) CAD (coronary artery disease): (5) COPD (chronic obstructive pulmonary disease): (6) Insulin dependent diabetes mellitus: (7) CHF (congestive heart failure): Plan per admitting service notes with addendum: 82 y/o [place] presents to the [facility] with increased fatigue and pain in his nose. Patient is POD # 9 s/p MOHS procedure under the care of Dr. Koroma with skin flaps and cartilage from ear. + purulent drainage and eschar. ENT to evaluate for intervention that would be additional to abx. No pain at site. Pt is known to pick at wounds and put stool in his wounds. Infected Nasal Reconstruction, Failed Flap POD #9 MOHS procedure under the care of Dr. Koroma with skin flaps and cartilage from ear Initially on Keflex--> Ciprofloxacin--> Levaquin. Today, eschar and black with purulent drainage Lactate 2.6; will trend Mg+ pending ED discussed with Dr. Koroma and recommended Vasoline and Bursiprocin ED discussed with ENT Dr. Cartagena who will evaluate the patient; ENT consult placed 01/14 feels fine afebrile, WBC normalized blood culture: pending wound culture: pending ENT recommendations noted- will need debridement discussed with Dr. Koroma (Derm) - will perform as an outpatient, ff up with her clinic this coming Wednesday continue Vanco + Zosyn for now ff up cultures DONNIE on CKD: likely d/t infection and fatigue. Creatinine 1.76; Takes Bumex; will hold and also hold giving any additional fluids Received 500mL NSB; will trend creatinine Hold nephrotoxic agents 500mL IVB in ED: hold add'l fluid as pt takes Bumex; will readdress creatinine in AM. 01/14 resolved resume Bumex tomorrow COPD: History of cigarette smoking with an approximately [id number] history cigarette smoking. Patient quit smoking years ago Takes Albuterol PRN 01/14 stable CAD: HTN: Continue ASA and Plavix Takes Lisinopril; hold due to DONNIE Takes Metoprolol and Imdur; continue 01/14 BP on the lower side hold Lisinopril continue Metoprolol, Imdur Insulin dependent diabetes mellitus: Uses Novolin; will continue with ACHS FSBS and SSI with CHO4 counting. Will check A1C- 7.1 Depression: Takes Fluoxetine; continue HLD: Takes rosuvastatin; continue BPH: Takes Doxazosin; continue Chronic lloyd; called ANNY Romero to see when it was placed at [phone] x [phone] but no answer UA + UTI; on IV abx that will cover. Obtain urine culture and adjust as needed 01/14 Urine culture: negative so far GERD: Takes levothyroxine; continue Disposition: PCP: ANNY Romero Code Status: Full Code VTE Prophylaxis: TEDS/SCDs for now Admission and Anticipated Discharge Date Admission Date: January 13, 2023 Subjective ff up for failed flap/nasal reconstruction with infection, etc seen resting in bed, comfortable states he feels fine overall minimal pain over the reconstruction site no problems with breathing no fever/chills no chest pain, dyspnea, palpitations, dizziness no other symptoms Review of Systems Review of Systems: all noted and negative except for above Physical Exam Physical Exam: General- oriented x 3, not in distress, speaks in sentences with no effort or accessory muscle use Eyes- anicteric Nose- eschar over the entirety of the nose (+) surrounding mild erythema,no active discharge noted ear and scalp wound healing well Neck- no JVD Lungs- clear breath sounds bilaterally, no rales/wheezes Heart- normal rate, regular rhythm; no murmurs Abdomen- normal bowel sounds, nondistended, soft, nontender Extremities- no pretibial edema, no calf tenderness Neuro- alert, oriented x 3; no gross focal neurologic deficits Skin- warm & dry Results & Data Results & Data Vital Signs (Past 12 Hours) Vital Signs Temp Pulse Pulse Pulse Resp BP BP 01/14/23 11:37 36.8 C 57 L 18 96/69 L 01/14/23 08:36 61 01/14/23 07:28 36.7 C 66 18 01/14/23 03:47 64 01/14/23 02:58 36.9 C 61 20 01/14/23 01:25 58 L 14 154/101 H 01/14/23 01:00 57 L 15 BP Pulse Ox O2 Del Method 01/14/23 11:37 94 Room Air 01/14/23 08:36 01/14/23 07:28 178/94 H 94 Room Air 01/14/23 03:47 01/14/23 02:58 143/79 H 96 Room Air 01/14/23 01:25 94 01/14/23 01:00 all noted and reviewed including below (3) Fatigue Fatigue type: unspecified Qualified Code(s): R53.83 - Other fatigue
[2023-01-14] MEDS ORDERED: VANCOMYCIN HCL 1,250 MG in SODIUM CHLORIDE 0.9% 250 ML IV SCH (17:00)
[2023-01-14] MEDS: ACETAMINOPHEN 325 MG TAB PO PRN (19:45)
[2023-01-14] MEDS: DOXAZosin MESYLATE 4 MG TAB PO SCH (19:46)
[2023-01-15 00:52] LABS: A calco-baum cmplx NotReported Not Detected (NotDetected); Bact fragilis Not Reported Not Detected (NotDetected); C auris Not Reported Not Detected (NotDetected); Calbicans Not Reported Not Detected (NotDetected); Candida glabrata Not Reported Not Detected (NotDetected); Candida krusei Not Reported Not Detected (NotDetected); Cneoformans/gatti Not Reported Not Detected (NotDetected); Cparapsilosis Not Reported Not Detected (NotDetected); Ctropicalis Not Reported Not Detected (NotDetected); E cloacae compx Not Reported Not Detected (NotDetected); Efaecalis Not Reported Not Detected (NotDetected); Efaecium Not Reported Not Detected (NotDetected); Enterobacterales Not Reported Not Detected (NotDetected); Escherichia coli Not Reported Not Detected (NotDetected); H influenzae Not Reported Not Detected (NotDetected); K aerogenes Not Reported Not Detected (NotDetected); Koxytoca Not Reported Not Detected (NotDetected); Kpneumoniae grp Not Reported Not Detected (NotDetected); Lmonocyt Not Reported Not Detected (NotDetected); N meningitidis Not Reported Not Detected (NotDetected); P aeruginosa Not Reported Not Detected (NotDetected); Proteus spp Not Reported Not Detected (NotDetected); Salmonella spp Not Reported Not Detected (NotDetected); Smarcescens Not Reported Not Detected (NotDetected); Staph lugdunensis Not Reported Not Detected (NotDetected); Staph spp. Not Reported Not Detected (NotDetected); Staphaureus Not Reported Not Detected (NotDetected); Staphepi Not Reported Not Detected (NotDetected); Stenmaltophilia Not Reported Not Detected (NotDetected); Strep agal(GrpB) Not Reported Not Detected (NotDetected); Strep pneum Not Reported Not Detected (NotDetected); Strep pyog (GrpA) Not Reported Not Detected (NotDetected); Strep spp Not Reported Not Detected (NotDetected)
[2023-01-15] MEDS ORDERED: CALCIUM CARBONATE 500 MG CHEWABLE TAB PO PRN (02:21)
[2023-01-15] MEDS ORDERED: ALBUT/IPRATROP 3MG/0.5MG NEB 3 ML VIAL NEB STA (02:55)
[2023-01-15] MEDS ORDERED: PANTOPRAZOLE BOLUS/DRIP 1 EACH IV STA (02:58)
[2023-01-15] MEDS ORDERED: PROMETHAZINE HCL 12.5 MG in SODIUM CHLORIDE 0.9% 50 ML IV STA (02:58)
[2023-01-15] MEDS ORDERED: PANTOprazole 80 MG in DEXTROSE 5% 100 ML IV ONE (03:00)
--- NOTE | 2023-01-15 03:00 | Communication Note ---
Date of Service: January 15, 2023 255 AM Patient did have blood tinged emesis as per RN. Patient later sounded wet as per RN. Patient with vague headache and abdominal pain complaints on query. Patient with uncontrolled GERD symptoms earlier. Patient later noted to have feculent emesis. PPE Lethargic, obese Necrotic eschar over nasal dorsum Decreased breath sounds Minimal epigastric tenderness AP UGIB Possible aspiration IV PPI n.p.o. Hold antiplatelet Rx for now A.m. labs now Aspiration precautions Chest x-ray Re: Possible aspiration CT head Re: Headache CT abdomen pelvis Re: Abdominal pain, UGIB, feculent emesis Further management pending imaging results
[2023-01-15] MEDS ORDERED: PANTOprazole 40 MG in DEXTROSE 5% 100 ML IV SCH (03:30)
[2023-01-15 03:35] LABS: Basophils # (auto) 0.04 K/uL (0-0.2); Basophils % (auto) 0.5 %; Eosinophils # (auto) 0.29 K/uL (0-0.50); Eosinophils % (auto) 3.4 %; Hematocrit (blood only) 37.5 % (42.0-52.0); Hemoglobin 12.7 g/dl (14.0-18.0); Immature Granulocytes # (auto) 0.06 K/uL (0.01-0.20); Immature Granulocytes % (auto) 0.7 %; Lymphocytes # (auto) 1.06 K/uL (1.2-3.4); Lymphocytes % (auto) 12.5 %; Mean Corpuscular Hemoglobin 29.2 pg (25.0-34.0); Mean Corpuscular Hgb Conc 33.9 g/dL (32.0-36.0); Mean Corpuscular Volume 86.2 fL (80.0-100.0); Mean Platelet Volume 9.3 fL (9.4-12.4); Monocytes # (auto) 1.03 K/uL (0.11-0.59); Monocytes % (auto) 12.2 %; Neutrophils # (auto) 5.97 K/uL (1.40-6.50); Neutrophils % (auto) 70.7 %; Platelet Count 343 K/uL (130-400); RDW Coefficient of Variation 13.1 % (11.5-14.5); RDW Standard Deviation 41.1 fL (36.4-46.3); Red Blood Count 4.35 M/uL (4.70-6.10); White Blood Count 8.45 K/ul (4.8-10.8)
[2023-01-15 03:54] LABS: BUN Creatinine Ratio 16.4 (10-20); Calcium 8.8 mg/dl (8.6-10.3); Creatinine Clr Calc Pharmacy 56.9 ml/min; Est GFR (African American) 63.2 ml/min; Est GFR (Non-African American) 54.5 ml/min
[2023-01-15] MEDS ORDERED: METOCLOPRAMIDE HCL INJ 5 MG/ML 2 ML VIAL IV ONE (05:06)
[2023-01-15] MEDS ORDERED: Nursing to Pharmacy Communication SCH (06:00)
[2023-01-15 06:21] LABS: Albumin Level 3.4 gm/dl (3.4-5.0); Bilirubin Direct 0.1 mg/dl (0-0.2); Bilirubin,Total 0.6 mg/dl (0.2-1.0); Total Protein 6.9 gm/dl (6.0-8.3)
--- NOTE | 2023-01-15 06:43 | XRay Report ---
XR chest 1V portable CLINICAL HISTORY: wet lung sounds COMPARISON STUDY: Chest radiograph January 13, 2023. Chest CT May 27, 2021. FINDINGS: Lung volumes are normal. Minimal left basilar opacity favors atelectasis. There is no pneum othorax or pleural effusion. Cardiac size is stable. A hiatal hernia is again noted. There is no evid ence for pulmonary edema. IMPRESSION: No acute cardiopulmonary findings. No change in appearance of the chest. ACT 112: Negative or not required by law. Electronically signed by: Gary Ovalle M.D. 01/15/2023 6:42 AM
[2023-01-15] MEDS ORDERED: OPTIRAY 350 100ml IV ONE (06:55)
--- NOTE | 2023-01-15 07:14 | CT Scan Report ---
CT OF THE HEAD WITHOUT CONTRAST CLINICAL HISTORY: Headache. COMPARISON STUDY: MRI of the brain July 02, [address] July 07, 2023. CT DOSE: 614.27 mGy.cm TECHNIQUE: Helical axial images of the head were obtained without IV contrast. Automated exposure con trol was utilized for the study. A dose lowering technique was utilized adhering to the principles o f ALARA. FINDINGS: No acute intracranial hemorrhage, midline shift or mass effect is present. Mild ventricular dilatation is unchanged and likely due to atrophy. Basal cisterns are patent. There are no extra-axi al collections. No findings to suggest acute dural sinus thrombosis or acute territorial infarct. Whi te matter hypodensities are unchanged. 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 Suspected old i nfarct within the right thalamus is unchanged. The appearance of the brain is unchanged. There are po stoperative findings of the scalp. There is mild sinus mucosal thickening. There is no acute calvaria l fracture. IMPRESSION: No acute intracranial findings. No change in appearance of the brain. ACT 112: Negative or not required by law. Electronically signed by: Gary Ovalle M.D. 01/15/2023 7:12 AM
--- NOTE | 2023-01-15 07:33 | CT Scan Report ---
CT OF THE ABDOMEN AND PELVIS WITH CONTRAST CLINICAL HISTORY: Abdominal pain. COMPARISON STUDY: CT of the abdomen and pelvis January 08, 2022. TECHNIQUE: Following IV administration of 94 mL of Optiray, axial images of the abdomen and pelvis we re obtained from the lung bases to the proximal femurs. Images were reviewed in the axial, sagittal, and coronal planes. IV contrast was administered without complication. Automated exposure control wa s utilized for the study. A dose lowering technique was utilized adhering to the principles of ALARA . CT DOSE: 1741.16 mGy.cm FINDINGS: No pneumatosis, free air or portal venous gas is present. This exam is mildly compromised b y motion artifact. There is a moderate sized hiatal hernia. Stomach is mildly fluid-filled. There is trace lower mediastinal fluid. There may be mild wall thickening of the distal esophagus. No hepatic lesions are identified. There is no biliary or pancreatic ductal dilatation. There are gallstones wit hin the gallbladder. There is no evidence for acute cholecystitis. The spleen, adrenal glands and kid neys are unremarkable. There is a suspected right renal cyst. There is no hydronephrosis. There is mi ld bilateral renal cortical thinning. The duodenum and proximal jejunum are mildly dilated and fluid- filled. There is mild associated mesenteric stranding. No well-defined transition point is identified . Linares balloon within the bladder is present. Moderate amount of stool within the rectum is noted. T here is no lymphadenopathy. There is colonic diverticulosis without evidence for acute diverticulitis . No acute fractures are identified. IMPRESSION: 1. Mildly dilated fluid-filled duodenum and proximal jejunum with associated mesenteric edema. No wel l-defined transition point. The findings favor a nonspecific enteritis. A partial small bowel obstruc tion could appear similar. 2. Moderate-sized hiatal hernia. Mildly distended fluid-filled stomach. Possible wall thickening dist al esophagus which may reflect esophagitis. Small amount of adjacent mediastinal fluid. 3. Cholelithiasis. No evidence for acute cholecystitis. 4. Moderate amount of stool within the rectum. 5. Colonic diverticulosis. No evidence for acute diverticulitis. 6. Exam mildly compromised by motion artifact. ACT 112: Negative or not required by law. Electronically signed by: Gary Ovalle M.D. 01/15/2023 7:31 AM
[2023-01-15] MEDS ORDERED: SODIUM CHLORIDE 0.9% 1000ML 1,000 ML IV SCH (08:00)
[2023-01-15] MEDS: LANTUS PER UNIT CHARGE SQ SCH (08:25)
[2023-01-15] MEDS: INSULIN ASPART PER UNIT CHARGE SC SCH ×3 (08:26→21:12)
[2023-01-15] MEDS: ISOSORBIDE MONO EXTENDED REL 30 MG TABCR PO SCH (09:37)
[2023-01-15] MEDS: METOPROLOL TARTRATE 50 MG TAB PO SCH ×2 (09:38→21:30)
[2023-01-15] MEDS: MUPIROCIN 2% OINT 22 GM TUBE EXT SCH ×2 (09:38→21:31)
[2023-01-15] MEDS: FLUTICASONE FUROATE 100MCG 14 PUFFS/INHALER INH SCH (09:39)
[2023-01-15] MEDS: ROSUVASTATIN CALCIUM 10 MG TAB PO SCH (09:39)
--- NOTE | 2023-01-15 09:42 | Pharmacy Report ---
Pharmacy Glycemic Short Note 2 - Date of Service January 15, 2023 - Glycemic Short BSG Results (Last 24 hours): 01/14/23 01/14/23 01/14/23 11:35 16:39 19:58 Glucose POC Glucose 139 H 129 H 142 H 01/15/23 01/15/23 03:18 07:36 Glucose 133 H POC Glucose 124 H OUTPATIENT ANTIDIABETIC REGIMEN: * Novolin 70/30 - 12 units bid, novolin R SSI * A1c 7% ASSESSMENT: * 82 year old admitted due to concerns for infection. Type 2 diabetic managed on mix insulin outpatient. * Fasting BSG 124 mg/dL - No basal insulin given last evening (01/14/23). Lantus scale of 0-10 units bid was discontinued as patient has not required any basal insulin over the last two days. * Patient is now NPO. Continuing current Novolog parameters as patient's BSGs are in goal range (120-160 mg/dL). PLAN FOR INPATIENT GLYCEMIC CONTROL: * Hold outpatient oral diabetes medications * Basal insulin * None * Bolus insulin * NovoLog per scale ACHS or Q6hrs while NPO * Goal Range: Low 120 mg/dL - High 160 mg/dL * Correction Factor 20 mg/dL/unit * Nutritional / Prandial insulin per carb ratio of 1 unit per 7 grams CHO consumed
--- NOTE | 2023-01-15 09:50 | Surgery Consultation ---
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 We have been consulted today as supposedly patient had multiple bouts of dark emesis throughout the ladle cleaner. A CT scan was obtained that revealed mildly dilated fluid-filled duodenum and proximal jejunum with associated mesenteric edema. No well-defined transition point. The findings favor a nonspecific enteritis. A partial small bowel obstruction could appear similar. Patient is lethargic and exam is difficult to ascertain, however patient does have an obese abdomen with some distention. Vital signs have been stable. Labs this AM show WBC 8.4, stable Hbg at 13. Past surgical history of appendectomy and inguinal hernia. Unclear if a partial SBO vs enteritis picture. For now would treat with bowel rest, NPO with IVF. If vomits again would consider NGT, however given patient's recent nasal surgery this may be difficult. I did inform the hospitalists of patient's current status who was going to order an ABG and further workup if necessary. Supervising Physician Co-Signing Physician Notes Patient seen and examined, labs and imaging reviewed, agree with above. s/p mohs of nose basal cell with flap, had vomiting overnight and ct with enteritis vs. poss partial sbo. afvss, protuberant abdomen, non tender. reducible UH. ct reviewed and interpreted by myself, no transition point, likely represents enteritis. clears as tolerated. 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 Majority of HPI obtained from chart review and supporting providers as he is currently lethargic and does not respond to my questions upon interview. He is a little over a week out from a Mohs procedure of the nose with forehead flap and using ear cartilage graft. We have been consulted today as supposedly patient had multiple bouts of dark emesis overnight. A CT scan was obtained that revealed mildly dilated fluid-filled duodenum and proximal jejunum with associated mesenteric edema. No well-defined transition point. The findings favor a nonspecific enteritis. A partial small bowel obstruction could appear similar. From chart review patient has history of appendectomy and inguinal hernia repair. Per the guards in the room patient is normally more awake and conversant. Allergies Allergy/AdvReac Type Severity Reaction Status Date / Time Sulfa (Sulfonamide Allergy Unknown ON [facility] Verified 01/13/23 15:37 Antibiotics) [facility] MED LIST Home Medications Medication Instructions Recorded Confirmed Type aspirin 81 mg tablet,delayed 81 mg PO DAILY 05/27/21 01/13/23 History release ciclesonide 160 mcg/actuation 2 puff inhalation BID PRN 05/27/21 01/13/23 History aerosol inhaler (Alvesco) Shortness Of Breath clopidogrel 75 mg tablet (Plavix) 75 mg PO DAILY 05/27/21 01/13/23 History doxazosin 8 mg tablet (Cardura) 8 mg PO HS 05/27/21 01/13/23 History insulin regular human 100 unit/mL 1 sliding scale dose subcut BID 05/27/21 01/13/23 History injection solution (Novolin R Regular U-100 Insulin) isosorbide mononitrate 30 mg 30 mg PO DAILY 05/27/21 01/13/23 History tablet,extended release 24 hr latanoprost 0.005 % eye drops 1 drp OPB HS 05/27/21 01/13/23 History rosuvastatin 10 mg tablet (Crestor) 10 mg PO DAILY 05/27/21 01/13/23 History albuterol sulfate 90 mcg/actuation 2 puff inhalation QID PRN 01/08/22 01/13/23 History aerosol inhaler (Proventil HFA) Shortness Of Breath insulin NPH-regular 70-30 U-100 12 unit subcut BID 01/08/22 01/13/23 History insulin 100 unit/mL subcutaneous pen (Novolin 70-30 FlexPen U-100 Insulin) bumetanide 1 mg tablet 1 mg PO DAILY 07/02/22 01/13/23 History cranberry extract 250 mg capsule 250 mg PO DAILY 07/02/22 01/13/23 History acetaminophen 300 mg-codeine 30 mg 1 tab PO TID 01/13/23 01/13/23 History tablet fluoxetine 20 mg tablet 20 mg PO DAILY 01/13/23 01/13/23 History levofloxacin 750 mg tablet 750 mg PO DAILY 01/13/23 01/13/23 History lisinopril 40 mg tablet 40 mg PO DAILY 01/13/23 01/13/23 History metoprolol tartrate 50 mg tablet 50 mg PO BID 01/13/23 01/13/23 History Patient History Medical History CHF (congestive heart failure) COPD (chronic obstructive pulmonary disease) Diabetes High blood pressure Surgical History H/O inguinal hernia repair History of appendectomy Hx of CABG No pertinent past surgical history Family History Father Coronary heart disease Diabetes Social History Smoking Status: Former smoker Tobacco Type: Cigarettes Hx Alcohol Use: No Hx Substance Use: No Preferred Language: Khmer Communication Ability: Effective Swinging Cut Off Saw Operator Required: No Beliefs That Will Affect Care: None Current Living Situation: Other Current Living Situation Comment: [facility] Feels Safe at Home: Yes Assistive Devices: Denture - Upper, Denture - Lower and Wheelchair Review of Systems Review of Systems: Unobtainable due to cognitive status Physical Exam Physical Exam: eyes closed Constitutional: + obese lethargic appearing Respiratory: on room air Cardiovascular: Rate/Rhythm: regular rate Gastrointestinal (Abdomen): Inspection/Auscultation: + abdomen distended (obese abdomen) and + abdominal surgical incision (RLQ region) Percussion/Palpation: abdomen soft tenderness to palpation difficult to ascertain given patient's current lethargic status, maybe slight wincing to some generalized deep palpation? Results & Data Vital Signs (Past 12 Hours) Vital Signs Temp Pulse Resp BP Pulse Ox O2 Del Method 01/15/23 07:29 36.8 C 77 18 182/100 H 92 Room Air 01/15/23 03:17 71 20 134/73 93 Room Air 01/14/23 23:13 36.7 C 59 L 22 149/85 H 94 Room Air Diagnostic Findings CT OF THE ABDOMEN AND PELVIS WITH CONTRAST CLINICAL HISTORY: Abdominal pain. COMPARISON STUDY: CT of the abdomen and pelvis January 08, 2022. TECHNIQUE: Following IV administration of 94 mL of Optiray, axial images of the abdomen and pelvis were obtained from the lung bases to the proximal femurs. Images were reviewed in the axial, sagittal, and coronal planes. IV contrast was administered without complication. Automated exposure control was utilized for the study. A dose lowering technique was utilized adhering to the principles of ALARA. CT DOSE: 1741.16 mGy.cm FINDINGS: No pneumatosis, free air or portal venous gas is present. This exam is mildly compromised by motion artifact. There is a moderate sized hiatal hernia. Stomach is mildly fluid-filled. There is trace lower mediastinal fluid. There may be mild wall thickening of the distal esophagus. No hepatic lesions are iden tified. There is no biliary or pancreatic ductal dilatation. There are gallstones within the gallbladder. There is no evidence for acute cholecystitis. The spleen, adrenal glands and kidneys are unremarkable. There is a suspected right renal cyst. There is no hydronephrosis. There is mild bilateral renal cortical thinning. The duodenum and proximal jejunum are mildly dilated and fluid-filled. There is mild associated mesenteric stranding. No well-defined transition point is identified. Linares balloon within the bladder is present. Moderate amount of stool within the rectum is noted. There is no lymphadenopathy. There is colonic diverticulosis without evidence for acute diverticulitis. No acute fractures are identified. IMPRESSION: 1. Mildly dilated fluid-filled duodenum and proximal jejunum with associated mesenteric edema. No well-defined transition point. The findings favor a nonspecific enteritis. A partial small bowel obstruction could appear similar. 2. Moderate-sized hiatal hernia. Mildly distended fluid-filled stomach. Possible wall thickening distal esophagus which may reflect esophagitis. Small amount of adjacent mediastinal fluid. 3. Cholelithiasis. No evidence for acute cholecystitis. 4. Moderate amount of stool within the rectum. 5. Colonic diverticulosis. No evidence for acute diverticulitis. 6. Exam mildly compromised by motion artifact. ACT 112: Negative or not required by law. Electronically signed by: Gary Ovalle M.D. 01/15/2023 7:31 AM PG Care Time/CCT Total # of Minutes Spent Total Time Spent with Patient: Total time spent is greater than 50% in coordination of care (as documented) at patient's floor/unit and/or counseling patient: Coding Level of Care Code 60183 IN/OBS CONSULT LVL 2,35M Diagnoses Vomiting R11.10
[2023-01-15 10:29] LABS: Base Excess ABG 2.2 mEq/L (-9-1.8); HCO3 ABG 28 mmol/L (19-24); Oxygen Saturation ABG 95.1 % (90-95); PCO2 ABG 46 mmHg (35-46); PO2 ABG 70 mmHg (80-95); pH ABG 7.39 (7.35-7.45)
[2023-01-15 10:31] LABS: Allen Test Pos (Pos)
[2023-01-15 10:41] LABS: Hematocrit (blood only) 39.1 % (42.0-52.0)
--- NOTE | 2023-01-15 11:25 | Pharmacy Report ---
Pharmacy Vanc AUC Short Note - Date of Service January 15, 2023 - Assessment & Plan Assessment 82 year old M started on vancomycin and zosyn yesterday due to concerns for potential surgical site infection. Per EENT notes, do not believe infection but feel that necrotic tissue needs debrided. Cultures currently pending at this time. Day #3 of antimicrobial therapy. Plan Vancomycin * Load: Vancomycin 2,250 mg IV once on 01/13/23 * Random level today (01/15/23): 8.9 * Maintenance: Increased to Vancomycin 1,750 mg IV q24h starting 01/15/23 at 1200. * AUC/LUDWIG is the preferred PK/PD target for vancomycin * AUC guided dosing is effective and associated with decreased risk of nephrotoxicity compared to traditional trough targets * Trough level of 15.6 mcg/mL is predicted to achieve target AUC/LUDWIG of 400-600 mg/L.hr and may be associated with a 11 % risk of nephrotoxicity * Trough or random level ordered for: TBD Pharmacy will continue to follow and will adjust dose/frequency as necessary. Thank you.
[2023-01-15] MEDS ORDERED: INSULIN ASPART PER UNIT CHARGE SC SCH (12:00)
--- NOTE | 2023-01-15 12:12 | Pharmacy Report ---
Pharmacy Glycemic Sign Off Nt - Date of Service January 15, 2023 - Assessment & Plan ASSESSMENT: * Pharmacy was consulted by Teresa Niño for glycemic control and to write orders per [facility] inpatient glycemic control protocol. * Major changes made by pharmacy to antidiabetic regimen include: * add novolog scale * Patient has been receiving/requiring less than 5 units of insulin per day for adequate glycemic control * BSGs ranging 110 -140 mg/dl * Do not anticipate further changes in patient status that would quickly deteriorate glycemic control PLAN FOR INPATIENT GLYCEMIC CONTROL: No changes needed to current regimen. * No basal insulin warranted at this time. Patient requiring minimal insulin. Could consider adding small dose of basal insulin if fasting BSG >180s * Continue NovoLog per scale ACHS/Q6hrs while NPO * Goal range = 120-160 mg/dl * CF = 20 mg/dl/unit * CR = 1 unit for ever 7 g CHO consumed * Pharmacy is signing off of glycemic consult and will no longer be making adjustments to inpatient regimen. Please feel free to re-consult if needed. Thank you.
[2023-01-15] MEDS: VANCOMYCIN HCL 1,750 MG in SODIUM CHLORIDE 0.9% 500 ML IV SCH (12:32)
--- NOTE | 2023-01-15 14:19 | Hospitalist Progress Note ---
Date of Service January 15, 2023 Assessment & Plan (1) DONNIE (acute kidney injury): (2) Infected skin graft: (3) Fatigue: (4) CAD (coronary artery disease): (5) COPD (chronic obstructive pulmonary disease): (6) Insulin dependent diabetes mellitus: (7) CHF (congestive heart failure): Plan per admitting service notes with addendum: 82 y/o from [facility] presents to the [facility] with increased fatigue and pain in his nose. Patient is POD # 9 s/p MOHS procedure under the care of Dr. Koroma with skin flaps and cartilage from ear. + purulent drainage and eschar. ENT to evaluate for intervention that would be additional to abx. No pain at site. Pt is known to pick at wounds and put stool in his wounds. Infected Nasal Reconstruction, Failed Flap POD #9 MOHS procedure under the care of Dr. Koroma with skin flaps and cartilage from ear Initially on Keflex--> Ciprofloxacin--> Levaquin. Today, eschar and black with purulent drainage Lactate 2.6; will trend Mg+ pending ED discussed with Dr. Koroma and recommended Vasoline and Bursiprocin ED discussed with ENT Dr. Cartagena who will evaluate the patient; ENT consult placed 01/14 feels fine afebrile, WBC normalized blood culture: pending wound culture: pending ENT recommendations noted- will need debridement discussed with Dr. Koroma (Derm) - will perform as an outpatient, ff up with her clinic this coming Wednesday continue Vanco + Zosyn for now ff up cultures 01/[address] Koroma, recommend inpatient evaluation by plastic surgery Discussed with Dr. Mckeon, removal of flap may result in the desiccation of underlying tissues, recommend continue antibiotic and daily wound care Vomiting, Possible Partial Small Bowel Obstruction nausea resolved Gen Surg consulted clearl iquids ordered monitor DONNIE on CKD: likely d/t infection and fatigue. Creatinine 1.76; Takes Bumex; will hold and also hold giving any additional fluids Received 500mL NSB; will trend creatinine Hold nephrotoxic agents 500mL IVB in ED: hold add'l fluid as pt takes Bumex; will readdress creatinine in AM. 01/15 resolved hold Bumex, patient's intake poor COPD: History of cigarette smoking with an approximately [id number] history cigarette smoking. Patient quit smoking years ago Takes Albuterol PRN 01/15 stable CAD: HTN: Continue ASA and Plavix Takes Lisinopril; hold due to DONNIE Takes Metoprolol and Imdur; continue 01/15 BP on the lower side hold Lisinopril continue Metoprolol, Imdur Insulin dependent diabetes mellitus: Uses Novolin; will continue with ACHS FSBS and SSI with CHO4 counting. Will check A1C- 7.1 Depression: Takes Fluoxetine; continue HLD: Takes rosuvastatin; continue BPH: Takes Doxazosin; continue Chronic lloyd; called ANNY Romero to see when it was placed at [phone] but no answer UA + UTI; on IV abx that will cover. Obtain urine culture and adjust as needed 01/15 Urine culture: negative so far GERD: Takes levothyroxine; continue Disposition: PCP: ANNY Romero Code Status: Full Code VTE Prophylaxis: TEDS/SCDs for now Admission and Anticipated Discharge Date Admission Date: January 13, 2023 Subjective Follow-up for infected skin graft/graft failure/nasal reconstruction, etc. Events overnight noted Patient had emesis episodes CT abdomen pelvis revealing possible partial small bowel obstruction This morning, patient appears to be lethargic BSG 126 ABG no hypercapnia Patient not in distress, no signs of discomfort or pain No other issues noted In the afternoon, patient more awake Diet advanced to clear liquids Review of Systems Review of Systems: all noted and negative except for above Physical Exam Physical Exam: General-patient drowsy, but not in distress, breathing with no accessory muscle use or effort Face- surrounding erythema on patient's wounds appears to be improving Eyes- anicteric Neck- no JVD Lungs- clear breath sounds bilaterally, no rales/wheezes Heart- normal rate, regular rhythm; no murmurs Abdomen- normal bowel sounds, nondistended, soft, nontender Extremities- no pretibial edema, no calf tenderness Neuro- alert, oriented x 3; no gross focal neurologic deficits Skin- warm & dry Results & Data Results & Data Vital Signs (Past 12 Hours) Vital Signs Temp Pulse Pulse Resp BP Pulse Ox O2 Del Method 01/15/23 12:22 36.5 C 58 L 20 146/62 H 92 Room Air 01/15/23 07:00 66 01/15/23 09:00 Room Air 01/15/23 07:29 36.8 C 77 18 182/100 H 92 Room Air 01/15/23 03:17 71 20 134/73 93 Room Air all noted and reviewed including below (3) Fatigue Fatigue type: unspecified Qualified Code(s): R53.83 - Other fatigue
[2023-01-15] MEDS: PIPERACILLIN/TAZOBACTAM 4.5 GM in DEXTROSE 5% 100 ML IV SCH ×2 (14:38→21:32)
--- NOTE | 2023-01-15 15:10 | Surgery Consultation ---
Date of Consultation January 15, 2023 Assessment & Plan (1) Failed flap: Distal tip of the flap has necrosed. Would recommend continued antibiotics, leave eschar in place for biologic dressing. Remaining underlying muscle, cartilage should be viable, removal of the flap may result in desiccation of this. While eschar will ultimately lift or likely need to be debrided, it would be beneficial to have a layer of granulation tissue underneath for possible skin grafting. Removal of the flap at this stage would commit this patient most likely to nasal prosthesis. Patient is afebrile, not tachycardic, white blood cell count is normal, there is scant purulent drainage. Would recommend local wound care, orders placed. Acticoat placed for tonight, begin daily dressing changes tomorrow with santyl to scalp and pedicle, leave black eschar open to air and dry. He should remain on vancomycin or p.o. antibiotics when appropriate to cover MRSA. Would recommend follow-up with Dr. Koroma, Wednesday if he is discharged, otherwise postdischarge. I did discuss this plan of care with her today via telephone, we agree. I will not be making rounds this weekend but can see the patient early next week if he remains in house. 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 He underwent immediate first stage reconstruction using a pedicled forehead flap, with scalp donor site left to granulate, no skin grafting performed. Review of her operative report indicates ear cartilage was harvested for alar reconstruction, flap was turned over to repair mucosal lining as well. Unfortunately, patient is known to pick at the wounds and put stool in the wounds. He has been seen frequently in Dr. Koroma office over the last 1 week, with inability for the wound to be managed at the long-term. He was brought to the emergency room postoperative day 0 with bleeding at the site. He has presented to the emergency department postoperative day 9 having been started on Levaquin for possible infection at the long-term. Since admission, he has been on various antibiotics, culture does show MRSA. Wound is presently being packed. He does have scheduled follow-up with Dr. Vega on Wednesday for wound recheck, with the planned division of the flap pedicle and final inset on January 25. Unfortunately, he has developed thick eschar over the nasal dorsum, ENT was consulted and recommended further evaluation for possible debridement. Dr. Koroma does not have consulting privileges at [facility], and therefore I am asked to see him regarding possible debridement. Primary service notes lethargy today after receiving Phenergan overnight as well as coffee-ground emesis. He was evaluated by general surgery earlier today, felt to have enteritis. Lactate was elevated. Allergies Allergy/AdvReac Type Severity Reaction Status Date / Time Sulfa (Sulfonamide Allergy Unknown ON [facility] Verified 01/13/23 15:37 Antibiotics) [facility] MED LIST Home Medications Medication Instructions Recorded Confirmed Type aspirin 81 mg tablet,delayed 81 mg PO DAILY 05/27/21 01/13/23 History release ciclesonide 160 mcg/actuation 2 puff inhalation BID PRN 05/27/21 01/13/23 History aerosol inhaler (Alvesco) Shortness Of Breath clopidogrel 75 mg tablet (Plavix) 75 mg PO DAILY 05/27/21 01/13/23 History doxazosin 8 mg tablet (Cardura) 8 mg PO HS 05/27/21 01/13/23 History insulin regular human 100 unit/mL 1 sliding scale dose subcut BID 05/27/21 01/13/23 History injection solution (Novolin R Regular U-100 Insulin) isosorbide mononitrate 30 mg 30 mg PO DAILY 05/27/21 01/13/23 History tablet,extended release 24 hr latanoprost 0.005 % eye drops 1 drp OPB HS 05/27/21 01/13/23 History rosuvastatin 10 mg tablet (Crestor) 10 mg PO DAILY 05/27/21 01/13/23 History albuterol sulfate 90 mcg/actuation 2 puff inhalation QID PRN 01/08/22 01/13/23 History aerosol inhaler (Proventil HFA) Shortness Of Breath insulin NPH-regular 70-30 U-100 12 unit subcut BID 01/08/22 01/13/23 History insulin 100 unit/mL subcutaneous pen (Novolin 70-30 FlexPen U-100 Insulin) bumetanide 1 mg tablet 1 mg PO DAILY 07/02/22 01/13/23 History cranberry extract 250 mg capsule 250 mg PO DAILY 07/02/22 01/13/23 History acetaminophen 300 mg-codeine 30 mg 1 tab PO TID 01/13/23 01/13/23 History tablet fluoxetine 20 mg tablet 20 mg PO DAILY 01/13/23 01/13/23 History levofloxacin 750 mg tablet 750 mg PO DAILY 01/13/23 01/13/23 History lisinopril 40 mg tablet 40 mg PO DAILY 01/13/23 01/13/23 History metoprolol tartrate 50 mg tablet 50 mg PO BID 01/13/23 01/13/23 History Patient History Medical History CHF (congestive heart failure) COPD (chronic obstructive pulmonary disease) Diabetes High blood pressure Surgical History H/O inguinal hernia repair History of appendectomy Hx of CABG No pertinent past surgical history Family History Father Coronary heart disease Diabetes Social History Smoking Status: Former smoker Tobacco Type: Cigarettes Hx Alcohol Use: No Hx Substance Use: No Preferred Language: Korean Communication Ability: Effective 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 Flap donor site right scalp with mostly fibrin and yellow slough. Minimal granulation tissue. Induration of the forehead at donor site wound closure incision. Forehead flap with at least partial flap necrosis at the pedicle, some viable tissue mid flap, with slough and fibrin, no key pus. complete necrosis with mummification of the nasal tip portion of the flap. No significant cellulitic changes. Packing in place. Patie nt is repeatedly trying to reach for and manipulate surgical site. Results & Data Vital Signs (Past 12 Hours) Vital Signs Temp Pulse Pulse Resp BP Pulse Ox O2 Del Method 01/15/23 12:22 97.7 F 58 L 20 146/62 H 92 Room Air 01/15/23 07:00 66 01/15/23 09:00 Room Air 01/15/23 07:29 98.2 F 77 18 182/100 H 92 Room Air 01/15/23 03:17 71 20 134/73 93 Room Air Laboratory Results Wound culture shows MRSA White blood cell count 11.3 on admission, 8.4 today Hemoglobin 13.0 Hemoglobin A1c 7 lactate 2.6 on admission, follow-up 1.5 PG Care Time/CCT Total # of Minutes Spent Total Time Spent: 30 Total Time Spent with Patient: Total time spent is greater than 50% in coordination of care (as documented) at patient's floor/unit and/or counseling patient: Coding Level of Care Code 23182 IN/OBS CONSULT LVL 2,35M Diagnoses Failed flap T86.821
[2023-01-15] MEDS ORDERED: SODIUM CHLORIDE 0.9% 1000ML 1,000 ML IV ONE (19:14)
[2023-01-15] MEDS ORDERED: MUPIROCIN 2% OINT 22 GM TUBE EXT SCH (21:00)
[2023-01-15] MEDS: DOXAZosin MESYLATE 4 MG TAB PO SCH (21:30)
[2023-01-15] MEDS: PANTOprazole 40 MG in SYRINGE 0 ML IV SCH (21:32)
--- NOTE | 2023-01-16 05:25 | Surgery Progress Note ---
Date of Service January 16, 2023 Assessment & Plan (1) Abdominal pain: Plan: Patient has been admitted on the hospitalist service. We recommend proceeding as follows: CT scan on 01/15/2023 showed a likely gastroenteritis however small bowel obstruction could not be excluded. Consideration can be given to advancing patient's diet Continue IV fluids until certain oral intake is adequate Provide analgesics and antiemetics as needed Check a.m. labs when available Increase mobilization as able Admission and Anticipated Discharge Date Admission Date: January 13, 2023 Supervising Physician Co-Signing Physician Notes agree with above. likely enteritis, adv diet as tolerated, surgery will s/o. Subjective Patient is resting comfortably in bed. He denies any nausea or vomiting and is passing flatus. He notes he has minimal abdominal pain. He notes he feels hungry. Physical Exam Gastrointestinal (Abdomen): Abdomen is soft, nonrigid, nondistended. There is minimal to no pain with palpation. Results & Data Vital Signs (Past 12 Hours) Vital Signs Temp Pulse Pulse Resp BP Pulse Ox O2 Del Method 01/16/23 03:44 68 01/16/23 02:49 36.8 C 58 L 18 132/70 91 Room Air 01/15/23 22:56 36.8 C 61 16 133/59 L 93 Room Air 01/15/23 19:20 37.1 C 65 16 162/70 H 90 Room Air PG Care Time/CCT Total # of Minutes Spent Total Time Spent with Patient: Total time spent is greater than 50% in coordination of care (as documented) at patient's floor/unit and/or counseling patient: Coding Level of Care Code 60627 SUB INP/OBS CARE 11/18MIN Diagnoses Abdominal pain R10.9
[2023-01-16] MEDS: PIPERACILLIN/TAZOBACTAM 4.5 GM in DEXTROSE 5% 100 ML IV SCH ×2 (05:56→17:04)
[2023-01-16 08:31] LABS: Creatinine Clr Calc Pharmacy 61.4 ml/min; Est GFR (African American) 69.3 ml/min; Est GFR (Non-African American) 59.8 ml/min
[2023-01-16] MEDS: FLUTICASONE FUROATE 100MCG 14 PUFFS/INHALER INH SCH (09:43)
[2023-01-16] MEDS: ISOSORBIDE MONO EXTENDED REL 30 MG TABCR PO SCH (09:44)
[2023-01-16] MEDS: ROSUVASTATIN CALCIUM 10 MG TAB PO SCH (09:45)
[2023-01-16] MEDS: METOPROLOL TARTRATE 50 MG TAB PO SCH ×2 (09:45→20:53)
[2023-01-16] MEDS: INSULIN ASPART PER UNIT CHARGE SC SCH ×4 (09:52→20:51)
[2023-01-16 11:08] LABS: Allen Test Pos (Pos); HCO3 ABG 27 mmol/L (19-24); Oxygen Saturation ABG 86.3 % (90-95); PCO2 ABG 48 mmHg (35-46); PO2 ABG 52 mmHg (80-95); pH ABG 7.36 (7.35-7.45)
[2023-01-16] MEDS: PANTOprazole 40 MG in SYRINGE 0 ML IV SCH ×2 (11:50→20:53)
[2023-01-16] MEDS: COLLAGENASE OINT 30 GM TUBE EXT SCH (12:54)
[2023-01-16] MEDS: VANCOMYCIN HCL 1,750 MG in SODIUM CHLORIDE 0.9% 500 ML IV SCH (12:55)
[2023-01-16] MEDS: MUPIROCIN 2% OINT 22 GM TUBE EXT SCH ×2 (12:55→20:55)
--- NOTE | 2023-01-16 14:46 | Hospitalist Progress Note ---
Date of Service January 16, 2023 Assessment & Plan (1) DONNIE (acute kidney injury): (2) Infected skin graft: (3) Fatigue: (4) CAD (coronary artery disease): (5) COPD (chronic obstructive pulmonary disease): (6) Insulin dependent diabetes mellitus: (7) CHF (congestive heart failure): Plan per admitting service notes with addendum: 82 y/o from [facility] presents to the [facility] with increased fatigue and pain in his nose. Patient is POD # 9 s/p MOHS procedure under the care of Dr. Koroma with skin flaps and cartilage from ear. + purulent drainage and eschar. ENT to evaluate for intervention that would be additional to abx. No pain at site. Pt is known to pick at wounds and put stool in his wounds. Infected Nasal Reconstruction, Failed Flap POD #9 MOHS procedure under the care of Dr. Koroma with skin flaps and cartilage from ear Initially on Keflex--> Ciprofloxacin--> Levaquin. Today, eschar and black with purulent drainage Lactate 2.6; will trend Mg+ pending ED discussed with Dr. Koroma and recommended Vasoline and Bursiprocin ED discussed with ENT Dr. Cartagena who will evaluate the patient; ENT consult placed 01/14 feels fine afebrile, WBC normalized blood culture: pending wound culture: pending ENT recommendations noted- will need debridement discussed with Dr. Koroma (Derm) - will perform as an outpatient, ff up with her clinic this coming Wednesday continue Vanco + Zosyn for now ff up cultures 01/[address] Koroma, recommend inpatient evaluation by plastic surgery Discussed with Dr. Mckeon, removal of flap may result in the desiccation of underlying tissues, recommend continue antibiotic and daily wound care 01/16 wound seems to be improving afebrile WBC 8.4 wound culture: MRSa blood culture: 10/26 prob. anaerobic gram positive cocci repeat blood culture: negative so far continue Vancomycin, d/c Zosyn ID consulted Vomiting, Possible Partial Small Bowel Obstruction nausea resolved Gen Surg consulted clearl iquids ordered monitor 01/16 tolerating clear liquids monitor DONNIE on CKD: likely d/t infection and fatigue. Creatinine 1.76; Takes Bumex; will hold and also hold giving any additional fluids Received 500mL NSB; will trend creatinine Hold nephrotoxic agents 500mL IVB in ED: hold add'l fluid as pt takes Bumex; will readdress creatinine in AM. 01/16 resolved hold Bumex, patient's intake poor COPD: History of cigarette smoking with an approximately 21-[id number]-kzbn history cigarette smoking. Patient quit smoking years ago Takes Albuterol PRN 01/16 stable CAD: HTN: Continue ASA and Plavix Takes Lisinopril; hold due to DONNIE Takes Metoprolol and Imdur; continue 01/15 BP on the lower side resume Lisinopril continue Metoprolol, Imdur Insulin dependent diabetes mellitus: Uses Novolin; will continue with ACHS FSBS and SSI with CHO4 counting. Will check A1C- 7.1 Depression: Takes Fluoxetine; continue HLD: Takes rosuvastatin; continue BPH: Takes Doxazosin; continue Chronic lloyd; called ANNY Romero to see when it was placed at [phone] but no answer UA + UTI; on IV abx that will cover. Obtain urine culture and adjust as needed 01/16 Urine culture: negative so far GERD: Takes levothyroxine; continue Disposition: PCP: ANNY Romero Code Status: Full Code VTE Prophylaxis: TEDS/SCDs for now Disposition anticipate return to correctional facility when medically stable Admission and Anticipated Discharge Date Admission Date: January 13, 2023 Subjective ff up for infected skin graft, etc seen resting in bed, very drowsy not in distress ABG no hypercapnea had breakfast, took his morning pills reassessed at noon patient awake, alert, answering questions appropriately states he feels ok denies pain, shortness of breath, fever/chills no abdominal pain, nausea, vomiting tolerating diet no other issues Review of Systems Review of Systems: all noted and negative except for above Physical Exam Physical Exam: General- oriented x 1-2, not in distress, speaks in sentences with no effort or accessory muscle use Face- erythema/edema around wound sites improving no active discharge noted Eyes- anicteric Neck- no JVD Lungs- clear breath sounds bilaterally, no rales/wheezes Heart- normal rate, regular rhythm; no murmurs Abdomen- normal bowel sounds, nondistended, soft, nontender Extremities- no pretibial edema, no calf tenderness Neuro- alert, oriented x 2; no gross focal neurologic deficits Skin- warm & dry Results & Data Results & Data Vital Signs (Past 12 Hours) Vital Signs Temp Pulse Pulse Resp BP Pulse Ox O2 Del Method 01/16/23 11:17 36.8 C 60 18 154/77 H 93 Room Air 01/16/23 08:16 36.5 C 68 18 155/88 H 93 Room Air 01/16/23 08:00 Room Air 01/16/23 07:36 63 01/16/23 03:44 68 01/16/23 02:49 36.8 C 58 L 18 132/70 91 Room Air all noted and reviewed including below (3) Fatigue Fatigue type: unspecified Qualified Code(s): R53.83 - Other fatigue
[2023-01-16] MEDS: DOXAZosin MESYLATE 4 MG TAB PO SCH (20:52)
[2023-01-17 08:26] LABS: Creatinine Clr Calc Pharmacy 74.7 ml/min; Est GFR (African American) 87.7 ml/min; Est GFR (Non-African American) 75.7 ml/min
[2023-01-17] MEDS: INSULIN ASPART PER UNIT CHARGE SC SCH ×4 (09:17→20:28)
[2023-01-17] MEDS: AMPICILLIN/SULBACTAM SOD 3,000 MG in 0.9 % SODIUM CHLORIDE 100 ML IV SCH ×3 (09:18→20:28)
[2023-01-17] MEDS: ASPIRIN 81 MG ECTAB PO SCH (09:22)
[2023-01-17] MEDS: FLUoxetine HCL 20 MG CAP PO SCH (09:22)
[2023-01-17] MEDS: FLUTICASONE FUROATE 100MCG 14 PUFFS/INHALER INH SCH (09:22)
[2023-01-17] MEDS: CLOPIDOGREL BISULFATE 75 MG TAB PO SCH (09:22)
[2023-01-17] MEDS: METOPROLOL TARTRATE 50 MG TAB PO SCH ×2 (09:23→20:29)
[2023-01-17] MEDS: ROSUVASTATIN CALCIUM 10 MG TAB PO SCH (09:23)
[2023-01-17] MEDS: ADVANCED PROBIOTIC 1250 MG CAPSULE PO SCH (09:23)
[2023-01-17] MEDS: ISOSORBIDE MONO EXTENDED REL 30 MG TABCR PO SCH (09:23)
[2023-01-17] MEDS: ACETAMINOPHEN 325 MG TAB PO PRN (09:56)
[2023-01-17] MEDS: PANTOprazole 40 MG in SYRINGE 0 ML IV SCH ×2 (09:58→20:30)
[2023-01-17] MEDS: COLLAGENASE OINT 30 GM TUBE EXT SCH (10:04)
[2023-01-17] MEDS: MUPIROCIN 2% OINT 22 GM TUBE EXT SCH ×2 (10:05→20:29)
[2023-01-17] MEDS ORDERED: VANCOMYCIN LEVEL ONE (11:00)
--- NOTE | 2023-01-17 12:06 | Hospitalist Progress Note ---
Date of Service January 17, 2023 Assessment & Plan (1) DONNIE (acute kidney injury): (2) Infected skin graft: (3) Fatigue: (4) CAD (coronary artery disease): (5) COPD (chronic obstructive pulmonary disease): (6) Insulin dependent diabetes mellitus: (7) CHF (congestive heart failure): Plan per admitting service notes with addendum: 82 y/o from [facility] presents to the [facility] with increased fatigue and pain in his nose. Patient is POD # 9 s/p MOHS procedure under the care of Dr. Koroma with skin flaps and cartilage from ear. + purulent drainage and eschar. ENT to evaluate for intervention that would be additional to abx. No pain at site. Pt is known to pick at wounds and put stool in his wounds. Infected Nasal Reconstruction, Failed Flap POD #9 MOHS procedure under the care of Dr. Koroma with skin flaps and cartilage from ear Initially on Keflex--> Ciprofloxacin--> Levaquin. Today, eschar and black with purulent drainage Lactate 2.6; will trend Mg+ pending ED discussed with Dr. Koroma and recommended Vasoline and Bursiprocin ED discussed with ENT Dr. Cartagena who will evaluate the patient; ENT consult placed 01/14 feels fine afebrile, WBC normalized blood culture: pending wound culture: pending ENT recommendations noted- will need debridement discussed with Dr. Koroma (Derm) - will perform as an outpatient, ff up with her clinic this coming Wednesday continue Vanco + Zosyn for now ff up cultures 01/[address] Koroma, recommend inpatient evaluation by plastic surgery Discussed with Dr. Mckeon, removal of flap may result in the desiccation of underlying tissues, recommend continue antibiotic and daily wound care 01/16 wound seems to be improving afebrile WBC 8.4 wound culture: MRSa blood culture: 10/26 prob. anaerobic gram positive cocci repeat blood culture: negative so far continue Vancomycin, d/c Zosyn ID consulted 12/28 stable afebrile BC pending repeat BC negative so far Unasyn IV for the prob. anaerobic gram positive cocci called lab, possible speciation tomorrow continue Vanco awaiting ID recommendations Vomiting, Possible Partial Small Bowel Obstruction nausea resolved Gen Surg consulted clearl iquids ordered monitor 01/16 tolerating clear liquids monitor 01/17 no GI symptoms advance diet ff up closely DONNIE on CKD: likely d/t infection and fatigue. Creatinine 1.76; Takes Bumex; will hold and also hold giving any additional fluids Received 500mL NSB; will trend creatinine Hold nephrotoxic agents 500mL IVB in ED: hold add'l fluid as pt takes Bumex; will readdress creatinine in AM. 01/17 resolved hold Bumex, patient's intake poor COPD: History of cigarette smoking with an approximately 99-oetx-xoln history cigarette smoking. Patient quit smoking years ago Takes Albuterol PRN 01/17 stable CAD: HTN: Continue ASA and Plavix Takes Lisinopril; hold due to DONNIE Takes Metoprolol and Imdur; continue 01/17 continue Lisinopril continue Metoprolol, Imdur continue ASA, Plavix Insulin dependent diabetes mellitus: Uses Novolin; will continue with ACHS FSBS and SSI with CHO4 counting. Will check A1C- 7.1 Depression: Takes Fluoxetine; continue HLD: Takes rosuvastatin; continue BPH: Takes Doxazosin; continue Chronic lloyd; called ANNY Romero to see when it was placed at [phone] but no answer UA + UTI; on IV abx that will cover. Obtain urine culture and adjust as needed 01/17 Urine culture: negative so far GERD: Takes levothyroxine; continue Disposition: PCP: ANNY Romero Code Status: Full Code VTE Prophylaxis: TEDS/SCDs for now Disposition anticipate return to correctional facility when medically stable Admission and Anticipated Discharge Date Admission Date: January 13, 2023 Subjective ff up for infected failed graft, nasal reconstruction, etc seen resting in bed, alert, oriented answering questions pleasant states he feels fine overall mild headache denies pain over the wound sites no chest pain, dyspnea, palpitations, dizziness no fever/chills tolerating full liquids no abdominal pain, nausea/vomiting no other symptoms Review of Systems Review of Systems: all noted and negative except for above Physical Exam Physical Exam: General- oriented x 3, not in distress, speaks in sentences with no effort or accessory muscle use Face- surrounding edema, erythema improving no active discharge no extension of necrotic areas Eyes- anicteric Neck- no JVD Lungs- clear BS BL Heart- normal rate, regular rhythm; no murmurs Abdomen- normal bowel sounds, nondistended, soft, nontender Extremities- no pretibial edema, no calf tenderness Neuro- alert, oriented x 3; no gross focal neurologic deficits Skin- warm & dry Results & Data Results & Data Vital Signs (Past 12 Hours) Vital Signs Temp Pulse Pulse Resp BP Pulse Ox O2 Del Method 01/17/23 11:30 36.7 C 58 L 20 113/66 91 Room Air 01/17/23 08:23 36.8 C 64 20 198/79 H 96 Room Air 01/17/23 07:38 50 L 01/17/23 03:20 36.8 C 63 16 172/72 H 94 Room Air 01/17/23 00:22 63 all noted and reviewed including below (3) Fatigue Fatigue type: unspecified Qualified Code(s): R53.83 - Other fatigue
--- NOTE | 2023-01-17 12:27 | Pharmacy Report ---
Pharmacy PK ABX Note - Date of Service January 17, 2023 - Assessment and Plan Assessment 82 year old M receiving vancomycin and Unasyn for treatment of infected nasal reconstruction/failed flap. Nose culture (+) MRSA. Renal function improving throughout visit (SCr 1.76-->1.4-->1.22_1.13-->0.93). Day # 5 of antimicrobial therapy. Plan Vancomycin * Vancomycin trough level this AM, 9.5mcg/mL (~22hr level). This is predicted to achieve a SS AUC of 331mg/L.hr which is subtherapeutic. * Maintenance dose: Increase to 1250 mg IV every 12 hours to start now * Regimen is predicted to achieve target AUC/LUDWIG of 467mg/L.hr (trough-14.2mcg /mL) with an 84% efficacy probability. * Will repeat a level around steady state of this regimen Pharmacy will continue to follow and will adjust dose/frequency as necessary. Thank you. Pharmacy has transitioned to AUC monitoring for vancomycin. AUC/LUDWIG is the preferred PK/PD target and is associated with decreased risk of nephrotoxicity compared to traditional trough targets.
[2023-01-17] MEDS: VANCOMYCIN HCL 1,250 MG in SODIUM CHLORIDE 0.9% 250 ML IV SCH ×2 (13:00→23:55)
[2023-01-17] MEDS: VANCOMYCIN HCL 1,750 MG in SODIUM CHLORIDE 0.9% 500 ML IV SCH (13:05)
[2023-01-17] MEDS: DOXAZosin MESYLATE 4 MG TAB PO SCH (20:28)
[2023-01-17] MEDS: MAGNESIUM HYDROXIDE SUSP 30 ML UDC PO PRN (23:57)
[2023-01-18] MEDS: AMPICILLIN/SULBACTAM SOD 3,000 MG in 0.9 % SODIUM CHLORIDE 100 ML IV SCH ×4 (01:17→21:30)
[2023-01-18 07:37] LABS: Est GFR (African American) 91.6 ml/min; Est GFR (Non-African American) 79.1 ml/min
[2023-01-18] MEDS: FLUTICASONE FUROATE 100MCG 14 PUFFS/INHALER INH SCH (08:48)
[2023-01-18] MEDS: ISOSORBIDE MONO EXTENDED REL 30 MG TABCR PO SCH (08:48)
[2023-01-18] MEDS: ASPIRIN 81 MG ECTAB PO SCH (08:48)
[2023-01-18] MEDS: CLOPIDOGREL BISULFATE 75 MG TAB PO SCH (08:48)
[2023-01-18] MEDS: FLUoxetine HCL 20 MG CAP PO SCH (08:48)
[2023-01-18] MEDS: ADVANCED PROBIOTIC 1250 MG CAPSULE PO SCH (08:49)
[2023-01-18] MEDS: METOPROLOL TARTRATE 50 MG TAB PO SCH ×2 (08:49→21:37)
[2023-01-18] MEDS: ROSUVASTATIN CALCIUM 10 MG TAB PO SCH (08:49)
[2023-01-18] MEDS: INSULIN ASPART PER UNIT CHARGE SC SCH ×4 (08:59→21:48)
[2023-01-18] MEDS: PANTOprazole 40 MG in SYRINGE 0 ML IV SCH ×2 (09:00→21:38)
--- NOTE | 2023-01-18 11:39 | Hospitalist Progress Note ---
Date of Service January 18, 2023 Assessment & Plan (1) Failed flap: Plan: (1) DONNIE (acute kidney injury): (2) Infected skin graft: (3) Fatigue: (4) CAD (coronary artery disease): (5) COPD (chronic obstructive pulmonary disease): (6) Insulin dependent diabetes mellitus: (7) CHF (congestive heart failure): Plan per admitting service notes with addendum: 82 y/o from [facility] presents to the [facility] with increased fatigue and pain in his nose. Patient is POD # 9 s/p MOHS procedure under the care of Dr. Koroma with skin flaps and cartilage from ear. + purulent drainage and eschar. ENT to evaluate for intervention that would be additional to abx. No pain at site. Pt is known to pick at wounds and put stool in his wounds. Infected Nasal Reconstruction, Failed Flap POD #9 MOHS procedure under the care of Dr. Koroma with skin flaps and cartilage from ear Initially on Keflex--> Ciprofloxacin--> Levaquin. Today, eschar and black with purulent drainage Lactate 2.6; will trend Mg+ pending ED discussed with Dr. Koroam and recommended Vasoline and Bursiprocin ED discussed with ENT Dr. Cartagena who will evaluate the patient; ENT consult placed 01/14 feels fine afebrile, WBC normalized blood culture: pending wound culture: pending ENT recommendations noted- will need debridement discussed with Dr. Koroma (Derm) - will perform as an outpatient, ff up with her clinic this coming Wednesday continue Vanco + Zosyn for now ff up cultures 01/[address] Koroma, recommend inpatient evaluation by plastic surgery Discussed with Dr. Mckeon, removal of flap may result in the desiccation of underlying tissues, recommend continue antibiotic and daily wound care 01/16 wound seems to be improving afebrile WBC 8.4 wound culture: MRSa blood culture: 10/26 prob. anaerobic gram positive cocci repeat blood culture: negative so far continue Vancomycin, d/c Zosyn ID consulted 12/28 stable afebrile BC pending repeat BC negative so far Unasyn IV for the prob. anaerobic gram positive cocci called lab, possible speciation tomorrow continue Vanco awaiting ID recommendations 01/18 Blood culture: Peptoniphilus likely contaminant continue Vanco + Unasyn awaiting final ID recs anticipate d/c on Doxycycline Vomiting, Possible Partial Small Bowel Obstruction nausea resolved Gen Surg consulted clear liquids ordered monitor 01/16 tolerating clear liquids monitor 01/17 no GI symptoms advance diet ff up closely 01/18 tolerating diet well (+) BMs DONNIE on CKD: likely d/t infection and fatigue. Creatinine 1.76; Takes Bumex; will hold and also hold giving any additional fluids Received 500mL NSB; will trend creatinine Hold nephrotoxic agents 500mL IVB in ED: hold add'l fluid as pt takes Bumex; will readdress creatinine in AM. 01/18 resolved hold Bumex, patient's intake poor COPD: History of cigarette smoking with an approximately 31-yvex-idms history cigarette smoking. Patient quit smoking years ago Takes Albuterol PRN 01/18 stable CAD: HTN: Continue ASA and Plavix Takes Lisinopril; hold due to DONNIE Takes Metoprolol and Imdur; continue 01/18 continue Lisinopril continue Metoprolol, Imdur continue ASA, Plavix Insulin dependent diabetes mellitus: Uses Novolin; will continue with ACHS FSBS and SSI with CHO4 counting. Will check A1C- 7.1 Depression: Takes Fluoxetine; continue HLD: Takes rosuvastatin; continue BPH: Takes Doxazosin; continue Chronic lloyd; called ANNY Romero to see when it was placed at [phone] but no answer UA + UTI; on IV abx that will cover. Obtain urine culture and adjust as needed 01/18 Urine culture: negative so far GERD: Takes levothyroxine; continue Disposition: PCP: ANNY Romero Code Status: Full Code VTE Prophylaxis: TEDS/SCDs for now Disposition anticipate return to correctional facility when medically stable, likely tomorrow Admission and Anticipated Discharge Date Admission Date: January 13, 2023 Subjective ff up for graft failure with infection, etc seen resting in bed, comfortable alert, in good spirits states he feels fine overall denies pain, dyspnea, fever/chills no abdominal pain ,nausea/vomiting no other symptoms Review of Systems Review of Systems: all noted and negative except for above Physical Exam Physical Exam: General- oriented x 3, not in distress, speaks in sentences with no effort or accessory muscle use face- edema, erythema around wounds now minimal Eyes- anicteric Neck- no JVD Lungs- clear BS bilaterally, no rales/wheezes Heart- normal rate, regular rhythm; no murmurs Abdomen- normal bowel sounds, nondistended, soft, nontender Extremities- no pretibial edema, no calf tenderness Neuro- alert, oriented x 3; no gross focal neurologic deficits Skin- warm & dry Results & Data Results & Data Vital Signs (Past 12 Hours) Vital Signs Temp Pulse Pulse Pulse Resp BP Pulse Ox 01/18/23 11:13 36.7 C 63 20 152/67 H 91 01/18/23 08:51 76 01/18/23 07:31 36.6 C 19 L 20 132/59 L 91 01/18/23 07:28 59 L 01/18/23 03:00 36.6 C 55 L 16 177/87 H 93 01/18/23 00:04 62 O2 Del Method 01/18/23 11:13 Room Air 01/18/23 08:51 01/18/23 07:31 Room Air 01/18/23 07:28 01/18/23 03:00 Room Air 01/18/23 00:04 all noted and reviewed including below
[2023-01-18] MEDS: VANCOMYCIN HCL 1,250 MG in SODIUM CHLORIDE 0.9% 250 ML IV SCH (12:47)
[2023-01-18] MEDS: MUPIROCIN 2% OINT 22 GM TUBE EXT SCH ×2 (13:22→21:38)
[2023-01-18] MEDS: COLLAGENASE OINT 30 GM TUBE EXT SCH (13:22)
--- NOTE | 2023-01-18 17:06 | Surgery Progress Note ---
Date of Service January 18, 2023 Assessment & Plan (1) Failed flap: Plan: Wounds overall look slightly better, certainly no worse. Would not expect to see significant improvement in slough for at least several more days on Santyl. Continue wound instructions as written. Follow up with Dr. Koroma post discharge for debridement. Admission and Anticipated Discharge Date Admission Date: January 13, 2023 Subjective Feeling better today. Wound care initiated over the weekend. Seen by ID,on Vanco currently with plans to d/c on Doxycycline. Physical Exam Physical Exam: Alert, interactive and cooperative scalp wound still about 80% yellow slough, with some new healthy red granulation tissue pedicle portion of flap with yellow slough but improved. Distal flap/nasal tip with black eschar Results & Data Vital Signs (Past 12 Hours) Vital Signs Temp Pulse Pulse Pulse Resp BP BP 01/18/23 16:30 176/78 H 01/18/23 08:00 01/18/23 15:51 98.1 F 55 L 20 181/77 H 01/18/23 11:13 98.1 F 63 20 152/67 H 01/18/23 08:51 76 01/18/23 07:31 97.9 F 19 L 20 132/59 L 01/18/23 07:28 59 L Pulse Ox O2 Del Method 01/18/23 16:30 01/18/23 08:00 Room Air 01/18/23 15:51 94 Room Air 01/18/23 11:13 91 Room Air 01/18/23 08:51 01/18/23 07:31 91 Room Air 01/18/23 07:28 PG Care Time/CCT Total # of Minutes Spent Total Time Spent with Patient: Total time spent is greater than 50% in coordination of care (as documented) at patient's floor/unit and/or counseling patient: Coding Level of Care Code 23630 SUB INP/OBS CARE 25MIN Diagnoses Failed flap T86.821
[2023-01-18] MEDS: ACETAMINOPHEN 325 MG TAB PO PRN (18:12)
[2023-01-18] MEDS: DOXAZosin MESYLATE 4 MG TAB PO SCH (21:37)
[2023-01-19] MEDS: VANCOMYCIN HCL 1,250 MG in SODIUM CHLORIDE 0.9% 250 ML IV SCH ×2 (00:20→12:16)
[2023-01-19] MEDS: AMPICILLIN/SULBACTAM SOD 3,000 MG in 0.9 % SODIUM CHLORIDE 100 ML IV SCH ×2 (01:49→08:09)
[2023-01-19 08:46] LABS: Creatinine Clr Calc Pharmacy 79.8 ml/min; Est GFR (African American) 92.5 ml/min; Est GFR (Non-African American) 79.8 ml/min
[2023-01-19] MEDS: ASPIRIN 81 MG ECTAB PO SCH (08:49)
[2023-01-19] MEDS: ISOSORBIDE MONO EXTENDED REL 30 MG TABCR PO SCH (08:50)
[2023-01-19] MEDS: CLOPIDOGREL BISULFATE 75 MG TAB PO SCH (08:50)
[2023-01-19] MEDS: FLUoxetine HCL 20 MG CAP PO SCH (08:50)
[2023-01-19] MEDS: ROSUVASTATIN CALCIUM 10 MG TAB PO SCH (08:51)
[2023-01-19] MEDS: FLUTICASONE FUROATE 100MCG 14 PUFFS/INHALER INH SCH (08:52)
[2023-01-19] MEDS ORDERED: lisinopril 40 MG TAB PO SCH (09:00)
[2023-01-19] MEDS ORDERED: INSULIN ASPART PER UNIT CHARGE SC ONE (09:03)
--- NOTE | 2023-01-19 09:21 | Pharmacy Report ---
Pharmacy PK ABX Note - Date of Service January 19, 2023 - Assessment and Plan Assessment 82 year old M receiving vancomycin and Unasyn for treatment of infected nasal reconstruction/failed flap. Nose culture (+) MRSA. * 1 of 4 BC growing Peptoniphilus - suspected to be a contaminant * ID consulted. Awaiting discharge recs. Possible d/c on doxy per Hospitalist progress note. * Day # 7 of antimicrobial therapy. Plan Vancomycin * Current regimen: 1250 mg IV every 12 hours * Random level obtained 3 AM resulted as 16.2 mcg/mL. This is predicted to achieve target AUC/LUDWIG of 400-600 mg/L.hr * Predicted AUC at steady state: 442 mg/L.hr * Predicted trough at steady state: 13 mcg/mL * Continue dose of 1250 mg IV every 12 hours * Will repeat level in the next 48-72 hours if therapy is continued and/or change in patient clinical status Pharmacy will continue to follow and will adjust dose/frequency as necessary. Thank you. Pharmacy has transitioned to AUC monitoring for vancomycin. AUC/LUDWIG is the preferred PK/PD target and is associated with decreased risk of nephrotoxicity compared to traditional trough targets.
[2023-01-19] MEDS: INSULIN ASPART PER UNIT CHARGE SC SCH ×3 (09:55→17:49)
[2023-01-19] MEDS: ADVANCED PROBIOTIC 1250 MG CAPSULE PO SCH (10:01)
[2023-01-19] MEDS: METOPROLOL TARTRATE 50 MG TAB PO SCH (10:01)
[2023-01-19] MEDS: PANTOprazole 40 MG in SYRINGE 0 ML IV SCH (10:01)
[2023-01-19] MEDS: MUPIROCIN 2% OINT 22 GM TUBE EXT SCH (10:02)
[2023-01-19] MEDS ORDERED: hydrALAZINE HCL 20 MG/ML VIAL IV PRN (12:12)
[2023-01-19] MEDS ORDERED: BUMETANIDE 1 MG TAB PO SCH (12:30)
[2023-01-19] MEDS: ACETAMINOPHEN 325 MG TAB PO PRN (13:15)
--- NOTE | 2023-01-19 14:48 | Discharge Summary ---
Discharge Summary Date of Service January 19, 2023 Notes For Next Care Provider PLEASE HAVE PATIENT FOLLOW UP WITH [facility] APPRENTICE DR. LYNNE IN 1 WEEK. Medication Changes From Visit DOXYCYCLINE 100MG BID X 7 DAYS PROBIOTICS DAILY SANTYL - APPLY TO scalp and pedicle, leave black eschar open to air and dry MUPIROCIN PROTONIX Admission HPI Per Admitting Provider 82 y/o from [facility] presents to the [facility] with increased fatigue and pain in his nose. Patient is POD # 9 s/p MOHS procedure under the care of Dr. Lynne with ear cartilage graft and fold over forehead flap. Surgicel has been wrapped around the nasal trunk as an outpatient. + purulent drainage and eschar noted since sutures have been removed on 01/11. He reports that his nose has been running in the mornings. Patient has failed numerous antibiotics including Keflex, Cipro, and Levaquin. His Lactate was elevated in ED 2.6. ED discussed with Dr. Lynne and recommended Vasoline and Bursiprocin; ED discussed with ENT Dr. Cartagena who will evaluate patient. Some DONNIE noted likely related to decreased intake, infection and fatigue. Positive response with IV Fluids. Pt also takes Bumex; will hold for now and readdress fluids as needed. Additional PMH includes: CAD (on ASA and Plavix), COPD, HTN, IDDM2, BPH with chronic lloyd and follows with Dr. Au, depression, HLD, Patient reports having a headache and fever/chills. Pt denies CP, SOB, palpitations, N/V/D, abdominal pain, bowel or bladder changes, recent falls or trauma. Patient will be admitted for further evaluation and management. Please see A/P for further details. Admission Exam Per Admitting Provider Neuro: (-) Falls, trauma, slurred speech HEENT: (-) HONG, dizziness, dysphagia, visual or auditory changes CV: (-) CP, palpitations, swelling Resp: (-) SOB GI: (-) appetite changes, N/V/D, bowel changes : (-) urinary changes Skin: (-) rashes Psych: (-) anxiety, depression Principal Dx & Hospital Course #1 = Principal Diagnosis (1) Failed flap: (1) DONNIE (acute kidney injury): (2) Infected skin graft: (3) Fatigue: (4) CAD (coronary artery disease): (5) COPD (chronic obstructive pulmonary disease): (6) Insulin dependent diabetes mellitus: (7) CHF (congestive heart failure): Plan per admitting service notes with addendum: 82 y/o from [facility] [place] presents to the [facility] with increased fatigue and pain in his nose. Patient is POD # 9 s/p MOHS procedure under the care of Dr. Lynne with skin flaps and cartilage from ear. + purulent drainage and eschar. ENT to evaluate for intervention that would be additional to abx. No pain at site. Pt is known to pick at wounds and put stool in his wounds. Infected Nasal Reconstruction, Failed Flap; MRSA POD #9 MOHS procedure under the care of Dr. Lynne with skin flaps and cartilage from ear Initially on Keflex--> Ciprofloxacin--> Levaquin. on admission, eschar and black with purulent drainage afebrile, WBC normalized Blood culture: Peptoniphilus in 1/2 bottle--> contaminant repeat Blood culture: negative wound culture: MRSA ENT recommendations noted- will need debridement discussed with Dr. Lynne (Derm) - will perform as an outpatient, ff up with her clinic this week evaluated while admitted by Plastic Surgeon Dr. Mckeon, removal of flap may result in the desiccation of underlying tissues, recommend continue antibiotic and daily wound care she discussed the case with Dr. Lynne wound seems to be improving given Vancomycin + Unasyn x 6 days [facility] ID consulted: Dr. Cast recommend Doxycycline 100mg BID x 1 week ff up with Nic Lynne in 1 week Vomiting, Possible Partial Small Bowel Obstruction nausea resolved CT abdomen/pelvis: 1. Mildly dilated fluid-filled duodenum and proximal jejunum with associated mesenteric edema. No well-defined transition point. The findings favor a nonspecific enteritis. A partial small bowel obstruction could appear similar. 2. Moderate-sized hiatal hernia. Mildly distended fluid-filled stomach. Possible wall thickening distal esophagus which may reflect esophagitis. Small amount of adjacent mediastinal fluid. 3. Cholelithiasis. No evidence for acute cholecystitis. 4. Moderate amount of stool within the rectum. 5. Colonic diverticulosis. No evidence for acute diverticulitis. 6. Exam mildly compromised by motion artifact. Gen Surg consulted clear liquids ordered tolerating diet well--> advanced to soft (+) BMs Protonix daily for esophagitis continue to re-evaluate and monitor DONNIE on CKD: likely d/t infection and fatigue. Creatinine 1.76; Takes Bumex; will hold and also hold giving any additional fluids Received 500mL NSB; will trend creatinine Hold nephrotoxic agents 500mL IVB in ED: hold add'l fluid as pt takes Bumex; will readdress creatinine in AM. 01/19 resolved resume Bumex COPD: History of cigarette smoking with an approximately 20-fqjv-kicu history cigarette smoking. Patient quit smoking years ago Takes Albuterol PRN 01/19 stable CAD: HTN: Continue ASA and Plavix Takes Lisinopril; hold due to DONNIE Takes Metoprolol and Imdur; continue 01/19 continue Lisinopril, Metoprolol, Imdur continue ASA, Plavix Insulin dependent diabetes mellitus: Uses Novolin; will continue with ACHS FSBS and SSI with CHO4 counting. A1C- 7.1 Depression: Takes Fluoxetine; continue HLD: Takes rosuvastatin; continue BPH: Takes Doxazosin; continue Chronic lloyd; called ANNY Romero to see when it was placed at [phone] but no answer UA + UTI; on IV abx that will cover. Obtain urine culture and adjust as needed 01/19 Urine culture: negative GERD: Takes levothyroxine; continue Disposition: PCP: ANNY Romero Code Status: Full Code VTE Prophylaxis: TEDS/SCDs for now Disposition return to correctional facility Discharge Exam General- oriented x 3, not in distress, speaks in sentences with no effort or accessory muscle use Face- very minimal erythema surrounding wounds eschar over the nose the same, no extension of necrosis Eyes- anicteric Neck- no JVD Lungs- clear breath sounds bilaterally, no rales/wheezes Heart- normal rate, regular rhythm; no murmurs Abdomen- normal bowel sounds, nondistended, soft, nontender Extremities- no pretibial edema, no calf tenderness Neuro- alert, oriented x 3; no gross focal neurologic deficits Skin- warm & dry Updated Medication List Medication Instructions Recorded Confirmed Type aspirin 81 mg tablet,delayed 81 mg PO DAILY 05/27/21 01/13/23 History release ciclesonide 160 mcg/actuation 2 puff inhalation BID PRN 05/27/21 01/13/23 History aerosol inhaler (Alvesco) Shortness Of Breath clopidogrel 75 mg tablet (Plavix) 75 mg PO DAILY 05/27/21 01/13/23 History doxazosin 8 mg tablet (Cardura) 8 mg PO HS 05/27/21 01/13/23 History insulin regular human 100 unit/mL 1 sliding scale dose subcut BID 05/27/21 01/13/23 History injection solution (Novolin R Regular U-100 Insulin) isosorbide mononitrate 30 mg 30 mg PO DAILY 05/27/21 01/13/23 History tablet,extended release 24 hr latanoprost 0.005 % eye drops 1 drp OPB HS 05/27/21 01/13/23 History rosuvastatin 10 mg tablet (Crestor) 10 mg PO DAILY 05/27/21 01/13/23 History albuterol sulfate 90 mcg/actuation 2 puff inhalation QID PRN 01/08/22 01/13/23 History aerosol inhaler (Proventil HFA) Shortness Of Breath insulin NPH-regular 70-30 U-100 12 unit subcut BID 01/08/22 01/13/23 History insulin 100 unit/mL subcutaneous pen (Novolin 70-30 FlexPen U-100 Insulin) bumetanide 1 mg tablet 1 mg PO DAILY 07/02/22 01/13/23 History cranberry extract 250 mg capsule 250 mg PO DAILY 07/02/22 01/13/23 History acetaminophen 300 mg-codeine 30 mg 1 tab PO TID 01/13/23 01/13/23 History tablet fluoxetine 20 mg tablet 20 mg PO DAILY 01/13/23 01/13/23 History levofloxacin 750 mg tablet 750 mg PO DAILY 01/13/23 01/13/23 History lisinopril 40 mg tablet 40 mg PO DAILY 01/13/23 01/13/23 History metoprolol tartrate 50 mg tablet 50 mg PO BID 01/13/23 01/13/23 History L.acidop,casei,lactis,rham-B.lact,goyo 2 cap PO DAILY 30 days #60 caps 01/19/23 Rx 625 mg (10 billion cell) capsule (Advanced Probiotic) collagenase clostridium histo. 250 1 applic EXT DAILY 14 days #90 01/19/23 Rx unit/gram topical ointment (Santyl) grams doxycycline hyclate 100 mg capsule 100 mg PO BID 7 days #14 caps 01/19/23 Rx mupirocin 2 % topical ointment 1 applic EXT BID 14 days #22 grams 01/19/23 Rx Hospital Stay Data Consultations 01/13/23 16:18 ED Decision to Admit Stat 01/13/23 16:46 Consult Otolaryngology (Head and Neck) Routine 01/15/23 08:28 Consult General Surgery Routine 01/15/23 08:31 Consult Infectious Diseases Routine 01/15/23 12:12 Consult Plastic Surgery Routine Diagnostic Imagining Performed 01/15/23 05:07 CT abd pelvis IV con only Urgent COMPARISON STUDY: CT of the abdomen and pelvis January 08, 2022. TECHNIQUE: Following IV administration of 94 mL of Optiray, axial images of the abdomen and pelvis were obtained from the lung bases to the proximal femurs. Images were reviewed in the axial, sagittal, and coronal planes. IV contrast was administered without complication. Automated exposure control was utilized for the study. A dose lowering technique was utilized adhering to the principles of ALARA. CT DOSE: 1741.16 mGy.cm FINDINGS: No pneumatosis, free air or portal venous gas is present. This exam is mildly compromised by motion artifact. There is a moderate sized hiatal hernia. Stomach is mildly fluid-filled. There is trace lower mediastinal fluid. There may be mild wall thickening of the distal esophagus. No hepatic lesions are identified. There is no biliary or pancreatic ductal dilatation. There are gallstones within the gallbladder. There is no evidence for acute cholecystitis. The spleen, adrenal glands and kidneys are unremarkable. There is a suspected right renal cyst. There is no hydronephrosis. There is mild bilateral renal cortical thinning. The duodenum and proximal jejunum are mildly dilated and fluid-filled. There is mild associated mesenteric stranding. No well-defined transition point is identified. Lloyd balloon within the bladder is present. Moderate amount of stool within the rectum is noted. There is no lymphadenopathy. There is colonic diverticulosis without evidence for acute diverticulitis. No acute fractures are identified. IMPRESSION: 1. Mildly dilated fluid-filled duodenum and proximal jejunum with associated mesenteric edema. No well-defined transition point. The findings favor a nonspecific enteritis. A partial small bowel obstruction could appear similar. 2. Moderate-sized hiatal hernia. Mildly distended fluid-filled stomach. Possible wall thickening distal esophagus which may reflect esophagitis. Small amount of adjacent mediastinal fluid. 3. Cholelithiasis. No evidence for acute cholecystitis. 4. Moderate amount of stool within the rectum. 5. Colonic diverticulosis. No evidence for acute diverticulitis. 6. Exam mildly compromised by motion artifact. ACT 112: Negative or not required by law. Electronically signed by: Gary Ovalle M.D. 01/15/2023 7:[address] head/brain wo con Stat FINDINGS: No acute intracranial hemorrhage, midline shift or mass effect is present. Mild ventricular dilatation is unchanged and likely due to atrophy. Basal cisterns are patent. There are no extra-axial collections. No findings to suggest acute dural sinus thrombosis or acute territorial infarct. White matter hypodensities are unchanged. 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 Suspected old infarct within the right thalamus is unchanged. The appearance of the brain is unchanged. There are postoperative findings of the scalp. There is mild sinus mucosal thickening. There is no acute calvarial fracture. IMPRESSION: No acute intracranial findings. No change in appearance of the brain. ACT 112: Negative or not required by law. Pending Results Patient Have Any Pending Studies at Discharge: No Discharge Instructions Given to Patient (Per Discharging Provider) PLEASE REFER TO YOUR NEW MEDICATION LIST AND FOLLOW INSTRUCTIONS CAREFULLY. YOUR NEW MEDICATIONS INCLUDE: DOXYCYCLINE 100MG BID X 7 DAYS PROBIOTICS DAILY SANTYL - APPLY TO scalp and pedicle, leave black eschar open to air and dry MUPIROCIN PLEASE CALL YOUR PRIMARY CARE PHYSICIAN OR RETURN TO THE ER IF WITH WORSENING OF SYMPTOMS, INCLUDING INCREASING WOUND REDNESS/SWELLING/DISCHARGE, FEVER/CHILLS, NAUSEA/VOMITING, WEAKNESS, ETC FOLLOW UP WITH ETCHER APPRENTICE DR. LYNNE IN 1 WEEK. Total Time Total Time Spent Total Time Spent (In Minutes): >30 MINUTES
[2023-01-19] MEDS: COLLAGENASE OINT 30 GM TUBE EXT SCH (15:10)
[2023-01-19] MEDS ORDERED: DOXYCYCLINE HYCLATE 100 MG CAP PO SCH (21:00)
== END 2023-01-19 19:42 | DRG 920 ==
LOC: ED 13:22 → EDINP 16:19 → SUATTDRO 16:19 → 2N 01-14 02:16 → 3W 01-18 17:01

== ENCOUNTER 2023-02-15 16:43 | Inpatient (IN) ==
[2023-02-15] MEDS ORDERED: SODIUM CHLORIDE 0.9% 1000ML 1,000 ML IV ONE ×4 (16:53→19:45)
--- NOTE | 2023-02-15 16:53 | Emergency Department Note ---
Impression & Plan Acute renal failure, Acute hypotension, Urinary tract infection, Acute dehydration ED Provider Note NAME: BERRY CORDOBA AGE: 82 SEX: M : 1940 ARRIVES VIA: Ambulance INFORMANT: Patient, EMS personnel ED PROVIDER(S): Martinez Vidales DO CHIEF COMPLAINT: Low blood pressure HPI: The patient is an 82-year-old male who does have a history of renal insufficiency but also has CHF who presented to the emergency department for an evaluation of generalized weakness. The patient also complains of cough. He has been in the [facility] for the last 18 hours in the group home. Apparently the patient's been receiving IV fluids. He has no vomiting. He denies having any chest pain. He does complain of shortness of breath and cough. He denies having any lower extremity swelling worse than usual. He denies having any hematuria. He has had decreased urine output noted by the staff. He denies having any black or bloody stools. ROS: See above HPI for pertinent positives & negatives. A total of 10 systems reviewed and were otherwise negative. PAST MEDICAL HISTORY: See Below PAST SURGICAL HISTORY: See Below FAMILY HISTORY: See Below SOCIAL HISTORY: See Below HOME MEDICATIONS: See Below ALLERGIES: See Below VITALS: See Below PHYSICAL EXAMINATION: GENERAL: The patient is awake and alert. He is nonanxious appearing. EYES: The conjunctivae are clear. The pupils are round and reactive. EARS, NOSE, MOUTH AND THROAT: The nose is without any evidence of any deformity. There is a wound dressing over the bridge of the nose as well as the right side of the forehead where previous skin biopsy was taken. NECK: The neck is nontender and supple. RESPIRATORY: Diminished breath sounds are noted throughout. CARDIOVASCULAR: Regular rate and rhythm was noted to auscultation. Distant heart sounds were noted. GASTROINTESTINAL: Abdomen was distended and soft. There is no guarding rigidity. MUSCULOSKELETAL/EXTREMITIES: There is no evidence of gross deformity full range of motion is noted in the hips and shoulders. SKIN: Skin is pale and dry. There is no significant pedal edema. NEUROLOGIC: Patient is awake and answering questions. He appeared vague and answers questions intermittently. MEDICAL DECISION MAKING: The patient is an 82-year-old male who presented to the emergency department from the group home for an evaluation of altered mental status. The patient was found to be hypotensive. The patient was awake but somewhat confused at times. He was treated with multiple fluid boluses in the emergency department. He was reevaluated multiple times. He was also treated with empiric antibiotics. Blood pressure slowly improved but would continue to drop. For this reason a central line was placed and the patient was placed on pressors. I discussed the patient's laboratory and radiographic studies with him. I discussed his condition with the on-call [facility]. They have agreed to evaluate the patient in the emergency department for further management and disposition. Triage Nursing notes reviewed. Prior medical records reviewed Vital Signs: reviewed and remarkable for hypotension Differential diagnosis: Infection, dehydration, metabolic abnormality, hypo/hyperglycemia, electrolyte disturbance, anemia, hypoxia, cardiac sources, intracerebral event, toxicologic, neurologic, as well as other pathologies. ER treatment provided: See below Diagnostics interpreted by me: ECG: EKG was obtained in the emergency department. My interpretation is atrial flutter with bradycardic rate. The rate was regular. There is no acute ST segment abnormalities noted. This was compared to a tracing from July 28, 2022. The atrial flutter is new compared to the previous tracing. Cardiac Monitoring: An order was placed for continuous cardiac monitoring. The monitor shows a rate of 67 bpm with sinus rhythm. Laboratory studies: As stated above and show below. Imaging studies: See below. Radiographic imaging was reviewed by myself Consultation(s): I discussed this case with Dr. Craven who is on-call for the [facility] group. ED COURSE: Procedures: Central Venous Catheter Indication: Hypotension and renal failure Catheter type: Triple-lumen Location: Left internal jugular Verbal consent was obtained after the risks and benefits were explained, including but not limited to pneumothorax, hemothorax, vessel injury, bleeding, scarring, infection, pain, and bone/joint/nerve damage. At this time, the risks of the procedure are less than the risks of NOT performing the procedure. A time out was taken and the correct patient and site identified. The patient was placed in the supine position and the skin was prepped in the standard fashion with chlorhexidine and full sterile drapes applied. The proper landmarks were identified with ultrasound, anesthetized with 1% lidocaine without epinephrine, and the needle was inserted through the skin in the standard fashion. The needle was carefully advanced into blood vessel lumen under ultrasound guidance. The guidewire was placed uneventfully. The vessel is dilated and the catheter was placed. It was sutured into position. There was good blood return from all ports. The patient tolerated the procedure well and there were no complications. Post procedure x-ray was normal. Critical Care: I have personally spent greater than 65 minutes of critical care time in the direct management of this patient. This includes bedside care, interpretation of diagnostic studies, and testing, discussion with consultants, patient, and family members, and other required patient management activities. This 65 minutes is in excess of all separately billable procedures. Past Med/Surg History Medical History CHF (congestive heart failure) COPD (chronic obstructive pulmonary disease) Diabetes High blood pressure Surgical History H/O inguinal hernia repair History of appendectomy Hx of CABG No pertinent past surgical history Family History Father Coronary heart disease Diabetes Social History Smoking Status: Former smoker Tobacco Type: Cigarettes Hx Alcohol Use: No Hx Substance Use: No Preferred Language: Comoran Communication Ability: Effective [employer] Technical Officer Required: No Beliefs That Will Affect Care: None Current Living Situation: Other Current Living Situation Comment: [facility] Feels Safe at Home: Yes Assistive Devices: Denture - Upper, Denture - Lower and Wheelchair Allergies Allergies Allergy/AdvReac Type Severity Reaction Status Date / Time Sulfa (Sulfonamide Allergy Unknown ON SCI Verified 02/15/23 19:23 Antibiotics) [facility] MED LIST Home Meds Home Medications Medication Instructions Recorded Confirmed albuterol sulfate 90 mcg/actuation 2 puff inhalation QID PRN 02/15/23 02/15/23 aerosol inhaler Shortness Of Breath aspirin 81 mg tablet,delayed 81 mg PO DAILY 02/15/23 02/15/23 release bumetanide 1 mg tablet 1 mg PO DAILY 02/15/23 02/15/23 ciclesonide 160 mcg/actuation 2 puff inhalation BID PRN 02/15/23 02/15/23 aerosol inhaler (Alvesco) Shortness Of Breath Or Wheezing clopidogrel 75 mg tablet (Plavix) 75 mg PO DAILY 02/15/23 02/15/23 cranberry extract 250 mg tablet 250 mg PO DAILY 02/15/23 02/15/23 doxazosin 8 mg tablet 8 mg PO HS 02/15/23 02/15/23 doxycycline monohydrate 100 mg 100 mg PO BID 02/15/23 02/15/23 capsule fluoxetine 20 mg tablet 20 mg PO DAILY 02/15/23 02/15/23 insulin human U-100 NPH-regulr 12 unit subcut BID 02/15/23 02/15/23 70-30 mix 100 unit/mL subcutaneous susp (Novolin 70/30 U-100 Insulin) insulin regular human 100 unit/mL 1 sliding scale dose subcut 02/15/23 02/15/23 injection solution (Novolin R USEASDIRECTD Regular U-100 Insulin) isosorbide mononitrate 30 mg 30 mg PO DAILY 02/15/23 02/15/23 tablet,extended release 24 hr latanoprost 0.005 % eye drops 1 drp ophthalmic (eye) PM 02/15/23 02/15/23 levofloxacin 750 mg tablet 750 mg PO DAILY 02/15/23 02/15/23 lisinopril 40 mg tablet 40 mg PO DAILY 02/15/23 02/15/23 menthol 0.44 %-zinc oxide 20.6 % 1 applic topical QID PRN flare ups 02/15/23 02/15/23 topical ointment (Calmoseptine) metoprolol tartrate 50 mg tablet 50 mg PO BID 02/15/23 02/15/23 ondansetron HCl 4 mg tablet 4 mg PO TID PRN Nausea 02/15/23 02/15/23 rosuvastatin 10 mg tablet 10 mg PO DAILY 02/15/23 02/15/23 Results & Data (ED) Vital Signs Vital Signs - 24 hr 02/15/23 16:57 02/15/23 16:50 02/15/23 16:48 Temperature 36.8 C Temperature Source Oral Pulse Rate 56 L 56 L Pulse Rate from SpO2 Sensor Respiratory Rate 24 Respiratory Effort / Characteristics Non-Labored Respiratory Depth Normal Respiratory Pattern Regular Blood Pressure 120/57 L Blood Pressure Mean 78 Blood Pressure Position Sitting Pulse Oximetry 95 94 Oxygen Delivery Method Room Air Room Air Oxygen Flow Rate Sepsis Recent Fever Within 48 Hours No Sepsis New/Unexplained Change in Mental Status No Sepsis Action Taken by Nursing No Action Required 02/15/23 16:57 02/15/23 16:57 02/15/23 17:00 Temperature Temperature Source Pulse Rate 56 L 53 L Pulse Rate from SpO2 Sensor Respiratory Rate 12 14 Respiratory Effort / Characteristics Respiratory Depth Respiratory Pattern Blood Pressure 113/50 L Blood Pressure Mean 71 Blood Pressure Position Pulse Oximetry Oxygen Delivery Method Oxygen Flow Rate Sepsis Recent Fever Within 48 Hours Sepsis New/Unexplained Change in Mental Status Sepsis Action Taken by Nursing 02/15/23 17:05 02/15/23 17:10 02/15/23 17:13 Temperature Temperature Source Pulse Rate 55 L 54 L Pulse Rate from SpO2 Sensor Respiratory Rate 14 13 Respiratory Effort / Characteristics Respiratory Depth Respiratory Pattern Blood Pressure 84/44 L Blood Pressure Mean 57 Blood Pressure Position Pulse Oximetry 95 Oxygen Delivery Method Room Air Oxygen Flow Rate Sepsis Recent Fever Within 48 Hours Sepsis New/Unexplained Change in Mental Status Sepsis Action Taken by Nursing 02/15/23 17:13 02/15/23 17:15 02/15/23 17:20 Temperature Temperature Source Pulse Rate 53 L 53 L Pulse Rate from SpO2 Sensor Respiratory Rate 13 12 Respiratory Effort / Characteristics Respiratory Depth Respiratory Pattern Blood Pressure 86/52 L Blood Pressure Mean 63 Blood Pressure Position Pulse Oximetry 94 Oxygen Delivery Method Room Air Oxygen Flow Rate Sepsis Recent Fever Within 48 Hours Sepsis New/Unexplained Change in Mental Status Sepsis Action Taken by Nursing 02/15/23 17:20 02/15/23 17:25 02/15/23 17:25 Temperature Temperature Source Pulse Rate 54 L 54 L Pulse Rate from SpO2 Sensor Respiratory Rate 16 12 Respiratory Effort / Characteristics Respiratory Depth Respiratory Pattern Blood Pressure 93/49 L Blood Pressure Mean 63 Blood Pressure Position Pulse Oximetry Oxygen Delivery Method Oxygen Flow Rate Sepsis Recent Fever Within 48 Hours Sepsis New/Unexplained Change in Mental Status Sepsis Action Taken by Nursing 02/15/23 17:30 02/15/23 17:31 02/15/23 17:31 Temperature Temperature Source Pulse Rate 57 L 57 L Pulse Rate from SpO2 Sensor Respiratory Rate 17 17 Respiratory Effort / Characteristics Respiratory Depth Respiratory Pattern Blood Pressure 106/68 Blood Pressure Mean 80 Blood Pressure Position Pulse Oximetry 93 Oxygen Delivery Method Room Air Oxygen Flow Rate Sepsis Recent Fever Within 48 Hours Sepsis New/Unexplained Change in Mental Status Sepsis Action Taken by Nursing 02/15/23 17:35 02/15/23 17:37 02/15/23 17:37 Temperature Temperature Source Pulse Rate 58 L 57 L Pulse Rate from SpO2 Sensor Respiratory Rate 13 13 Respiratory Effort / Characteristics Respiratory Depth Respiratory Pattern Blood Pressure 120/60 Blood Pressure Mean 80 Blood Pressure Position Pulse Oximetry Oxygen Delivery Method Oxygen Flow Rate Sepsis Recent Fever Within 48 Hours Sepsis New/Unexplained Change in Mental Status Sepsis Action Taken by Nursing 02/15/23 17:40 02/15/23 17:41 02/15/23 17:41 Temperature Temperature Source Pulse Rate 56 L 56 L Pulse Rate from SpO2 Sensor Respiratory Rate 12 13 Respiratory Effort / Characteristics Respiratory Depth Respiratory Pattern Blood Pressure 97/51 L Blood Pressure Mean 66 Blood Pressure Position Pulse Oximetry 92 Oxygen Delivery Method Room Air Oxygen Flow Rate Sepsis Recent Fever Within 48 Hours Sepsis New/Unexplained Change in Mental Status Sepsis Action Taken by Nursing 02/15/23 17:45 02/15/23 17:47 02/15/23 17:47 Temperature Temperature Source Pulse Rate 55 L 57 L Pulse Rate from SpO2 Sensor Respiratory Rate 14 13 Respiratory Effort / Characteristics Respiratory Depth Respiratory Pattern Blood Pressure 60/45 L Blood Pressure Mean 50 Blood Pressure Position Pulse Oximetry Oxygen Delivery Method Oxygen Flow Rate Sepsis Recent Fever Within 48 Hours Sepsis New/Unexplained Change in Mental Status Sepsis Action Taken by Nursing 02/15/23 17:50 02/15/23 17:50 02/15/23 17:55 Temperature Temperature Source Pulse Rate 60 Pulse Rate from SpO2 Sensor Respiratory Rate 12 Respiratory Effort / Characteristics Respiratory Depth Respiratory Pattern Blood Pressure 86/42 L 81/46 L Blood Pressure Mean 56 57 Blood Pressure Position Pulse Oximetry Oxygen Delivery Method Oxygen Flow Rate Sepsis Recent Fever Within 48 Hours Sepsis New/Unexplained Change in Mental Status Sepsis Action Taken by Nursing 02/15/23 17:55 02/15/23 18:00 02/15/23 18:00 Temperature Temperature Source Pulse Rate 59 L 60 Pulse Rate from SpO2 Sensor Respiratory Rate 15 12 Respiratory Effort / Characteristics Respiratory Depth Respiratory Pattern Blood Pressure 83/50 L Blood Pressure Mean 61 Blood Pressure Position Pulse Oximetry Oxygen Delivery Method Oxygen Flow Rate Sepsis Recent Fever Within 48 Hours Sepsis New/Unexplained Change in Mental Status Sepsis Action Taken by Nursing 02/15/23 18:08 02/15/23 18:10 02/15/23 18:10 Temperature Temperature Source Pulse Rate 57 L 58 L Pulse Rate from SpO2 Sensor Respiratory Rate 17 13 Respiratory Effort / Characteristics Respiratory Depth Respiratory Pattern Blood Pressure 70/43 L Blood Pressure Mean 52 Blood Pressure Position Pulse Oximetry 92 88 L 86 L Oxygen Delivery Method Room Air Room Air Room Air Oxygen Flow Rate Sepsis Recent Fever Within 48 Hours Sepsis New/Unexplained Change in Mental Status Sepsis Action Taken by Nursing 02/15/23 18:15 02/15/23 18:16 02/15/23 18:16 Temperature Temperature Source Pulse Rate 55 L 57 L Pulse Rate from SpO2 Sensor Respiratory Rate 13 12 Respiratory Effort / Characteristics Respiratory Depth Respiratory Pattern Blood Pressure 104/67 Blood Pressure Mean 79 Blood Pressure Position Pulse Oximetry 92 95 Oxygen Delivery Method Oxymask Oxymask Oxygen Flow Rate 2 2 Sepsis Recent Fever Within 48 Hours Sepsis New/Unexplained Change in Mental Status Sepsis Action Taken by Nursing 02/15/23 18:20 02/15/23 18:21 02/15/23 18:21 Temperature Temperature Source Pulse Rate 58 L 59 L Pulse Rate from SpO2 Sensor Respiratory Rate 12 12 Respiratory Effort / Characteristics Respiratory Depth Respiratory Pattern Blood Pressure 125/61 Blood Pressure Mean 82 Blood Pressure Position Pulse Oximetry 95 97 Oxygen Delivery Method Oxymask Oxymask Oxygen Flow Rate 2 2 Sepsis Recent Fever Within 48 Hours Sepsis New/Unexplained Change in Mental Status Sepsis Action Taken by Nursing 02/15/23 18:45 02/15/23 18:46 02/15/23 18:46 Temperature Temperature Source Pulse Rate 63 Pulse Rate from SpO2 Sensor 60 Respiratory Rate 22 Respiratory Effort / Characteristics Respiratory Depth Respiratory Pattern Blood Pressure 139/83 Blood Pressure Mean 101 Blood Pressure Position Pulse Oximetry 92 95 Oxygen Delivery Method Oxymask Oxygen Flow Rate 2 Sepsis Recent Fever Within 48 Hours Sepsis New/Unexplained Change in Mental Status Sepsis Action Taken by Nursing 02/15/23 18:50 02/15/23 18:50 02/15/23 18:56 Temperature Temperature Source Pulse Rate 60 65 Pulse Rate from SpO2 Sensor Respiratory Rate 16 16 Respiratory Effort / Characteristics Respiratory Depth Respiratory Pattern Blood Pressure 133/71 131/71 Blood Pressure Mean 91 91 Blood Pressure Position Pulse Oximetry 94 Oxygen Delivery Method Oxymask Oxymask Oxygen Flow Rate 2 2 Sepsis Recent Fever Within 48 Hours Sepsis New/Unexplained Change in Mental Status Sepsis Action Taken by Nursing 02/15/23 19:00 02/15/23 19:05 02/15/23 19:10 Temperature Temperature Source Pulse Rate 62 63 63 Pulse Rate from SpO2 Sensor 67 Respiratory Rate 13 12 13 Respiratory Effort / Characteristics Respiratory Depth Respiratory Pattern Blood Pressure 144/81 H 144/64 H 146/61 H Blood Pressure Mean 102 90 89 Blood Pressure Position Pulse Oximetry 95 99 Oxygen Delivery Method Oxymask Oxymask Oxymask Oxygen Flow Rate 2 2 2 Sepsis Recent Fever Within 48 Hours Sepsis New/Unexplained Change in Mental Status Sepsis Action Taken by Nursing 02/15/23 19:15 02/15/23 19:20 02/15/23 19:25 Temperature Temperature Source Pulse Rate 65 71 64 Pulse Rate from SpO2 Sensor 64 Respiratory Rate 16 12 12 Respiratory Effort / Characteristics Respiratory Depth Respiratory Pattern Blood Pressure 138/79 128/70 131/67 Blood Pressure Mean 98 89 88 Blood Pressure Position Pulse Oximetry 97 96 97 Oxygen Delivery Method Oxymask Oxymask Oxymask Oxygen Flow Rate 2 2 2 Sepsis Recent Fever Within 48 Hours Sepsis New/Unexplained Change in Mental Status Sepsis Action Taken by Nursing 02/15/23 19:31 02/15/23 19:36 02/15/23 19:40 Temperature Temperature Source Pulse Rate 67 65 65 Pulse Rate from SpO2 Sensor 66 65 65 Respiratory Rate 16 17 16 Respiratory Effort / Characteristics Respiratory Depth Respiratory Pattern Blood Pressure 138/69 132/61 135/69 Blood Pressure Mean 92 84 91 Blood Pressure Position Pulse Oximetry 96 97 98 Oxygen Delivery Method Oxymask Oxymask Oxymask Oxygen Flow Rate 2 2 2 Sepsis Recent Fever Within 48 Hours Sepsis New/Unexplained Change in Mental Status Sepsis Action Taken by Nursing 02/15/23 19:45 02/15/23 19:50 02/15/23 19:55 Temperature Temperature Source Pulse Rate 65 67 66 Pulse Rate from SpO2 Sensor 65 67 67 Respiratory Rate 12 10 L 15 Respiratory Effort / Characteristics Respiratory Depth Respiratory Pattern Blood Pressure 151/71 H 139/79 150/71 H Blood Pressure Mean 97 99 97 Blood Pressure Position Pulse Oximetry 96 96 98 Oxygen Delivery Method Oxygen Flow Rate Sepsis Recent Fever Within 48 Hours Sepsis New/Unexplained Change in Mental Status Sepsis Action Taken by Nursing 02/15/23 20:00 02/15/23 20:05 02/15/23 20:09 Temperature Temperature Source Pulse Rate 65 65 69 Pulse Rate from SpO2 Sensor 65 65 68 Respiratory Rate 15 13 14 Respiratory Effort / Characteristics Respiratory Depth Respiratory Pattern Blood Pressure 112/75 126/74 126/67 Blood Pressure Mean 87 91 86 Blood Pressure Position Pulse Oximetry 96 96 94 Oxygen Delivery Method Oxygen Flow Rate Sepsis Recent Fever Within 48 Hours Sepsis New/Unexplained Change in Mental Status Sepsis Action Taken by Nursing 02/15/23 20:15 02/15/23 20:20 02/15/23 20:25 Temperature Temperature Source Pulse Rate 66 65 64 Pulse Rate from SpO2 Sensor 66 65 63 Respiratory Rate 16 16 13 Respiratory Effort / Characteristics Respiratory Depth Respiratory Pattern Blood Pressure 117/68 123/60 106/63 Blood Pressure Mean 84 81 77 Blood Pressure Position Pulse Oximetry 94 97 96 Oxygen Delivery Method Oxymask Oxymask Oxymask Oxygen Flow Rate 2 2 2 Sepsis Recent Fever Within 48 Hours Sepsis New/Unexplained Change in Mental Status Sepsis Action Taken by Nursing 02/15/23 20:31 02/15/23 20:35 02/15/23 20:40 Temperature Temperature Source Pulse Rate 64 66 66 Pulse Rate from SpO2 Sensor 65 65 65 Respiratory Rate 14 16 15 Respiratory Effort / Characteristics Respiratory Depth Respiratory Pattern Blood Pressure 128/60 99/62 L 116/65 Blood Pressure Mean 82 74 82 Blood Pressure Position Pulse Oximetry 96 97 97 Oxygen Delivery Method Oxymask Oxymask Oxymask Oxygen Flow Rate 2 2 2 Sepsis Recent Fever Within 48 Hours Sepsis New/Unexplained Change in Mental Status Sepsis Action Taken by Nursing 02/15/23 20:45 02/15/23 20:50 02/15/23 20:58 Temperature Temperature Source Pulse Rate 67 66 67 Pulse Rate from SpO2 Sensor 68 66 Respiratory Rate 14 12 Respiratory Effort / Characteristics Respiratory Depth Respiratory Pattern Blood Pressure 108/61 105/67 Blood Pressure Mean 76 79 Blood Pressure Position Pulse Oximetry 97 96 Oxygen Delivery Method Oxymask Oxymask Oxygen Flow Rate 2 2 Sepsis Recent Fever Within 48 Hours Sepsis New/Unexplained Change in Mental Status Sepsis Action Taken by Nursing 02/15/23 20:55 02/15/23 21:00 02/15/23 21:05 Temperature Temperature Source Pulse Rate 68 69 68 Pulse Rate from SpO2 Sensor 67 69 68 Respiratory Rate 12 16 14 Respiratory Effort / Characteristics Respiratory Depth Respiratory Pattern Blood Pressure 101/81 123/56 L 114/57 L Blood Pressure Mean 87 78 76 Blood Pressure Position Pulse Oximetry 97 94 97 Oxygen Delivery Method Oxymask Oxymask Oxymask Oxygen Flow Rate 2 2 2 Sepsis Recent Fever Within 48 Hours Sepsis New/Unexplained Change in Mental Status Sepsis Action Taken by Nursing 02/15/23 21:10 02/15/23 21:11 02/15/23 21:14 Temperature Temperature Source Pulse Rate 66 67 68 Pulse Rate from SpO2 Sensor 66 68 69 Respiratory Rate 14 14 15 Respiratory Effort / Characteristics Respiratory Depth Respiratory Pattern Blood Pressure 93/50 L 69/57 L 99/69 L Blood Pressure Mean 64 61 79 Blood Pressure Position Pulse Oximetry 95 95 97 Oxygen Delivery Method Oxymask Oxymask Oxymask Oxygen Flow Rate 2 2 2 Sepsis Recent Fever Within 48 Hours Sepsis New/Unexplained Change in Mental Status Sepsis Action Taken by Nursing 02/15/23 21:25 02/15/23 21:35 02/15/23 21:40 Temperature Temperature Source Pulse Rate 65 65 64 Pulse Rate from SpO2 Sensor 65 65 65 Respiratory Rate 16 16 12 Respiratory Effort / Characteristics Respiratory Depth Respiratory Pattern Blood Pressure 97/58 L 93/70 L 100/64 Blood Pressure Mean 71 77 76 Blood Pressure Position Pulse Oximetry 97 97 98 Oxygen Delivery Method Oxymask Oxymask Oxymask Oxygen Flow Rate 2 2 2 Sepsis Recent Fever Within 48 Hours Sepsis New/Unexplained Change in Mental Status Sepsis Action Taken by Nursing 02/15/23 21:45 02/15/23 21:50 02/15/23 21:55 Temperature Temperature Source Pulse Rate 64 67 67 Pulse Rate from SpO2 Sensor 65 67 66 Respiratory Rate 12 14 12 Respiratory Effort / Characteristics Respiratory Depth Respiratory Pattern Blood Pressure 107/74 128/63 129/65 Blood Pressure Mean 85 84 86 Blood Pressure Position Pulse Oximetry 96 97 97 Oxygen Delivery Method Oxymask Oxymask Oxymask Oxygen Flow Rate 2 2 2 Sepsis Recent Fever Within 48 Hours Sepsis New/Unexplained Change in Mental Status Sepsis Action Taken by Snf Medications Current Medication List: was personally reviewed by me Laboratory Data Attestation: I reviewed the patient's lab results. 02/15/23 17:09 02/15/23 17:09 Lab Results 02/15/23 02/15/23 02/15/23 Range/Units 17:09 17:09 17:09 WBC 12.75 H (4.8-10.8) K/ul RBC 4.60 L (4.70-6.10) M/uL Hgb 13.1 L (14.0-18.0) g/dl POC Hgb (14.0-18.0) g/dl Hct 40.3 L (42.0-52.0) % POC Hct (42-52) % MCV 87.6 (80.0-100.0) fL MCH 28.5 (25.0-34.0) pg MCHC 32.5 (32.0-36.0) g/dL RDW Std Deviation 44.5 (36.4-46.3) fL RDW Coeff of Sandrita 14.0 (11.5-14.5) % Plt Count 210 (130-400) K/uL MPV 12.0 (9.4-12.4) fL Immature Gran % (Auto) 0.4 % Neut % (Auto) 77.7 % Lymph % (Auto) 9.5 % Upton % (Auto) 10.8 % Eos % (Auto) 1.3 % Baso % (Auto) 0.3 % Neut # (Auto) 9.91 H (1.40-6.50) K/uL Lymph # (Auto) 1.21 (1.2-3.4) K/uL Upton # (Auto) 1.38 H (0.11-0.59) K/uL Eos # (Auto) 0.16 (0-0.50) K/uL Baso # (Auto) 0.04 (0-0.2) K/uL Immature Gran # (Auto) 0.05 (0.01-0.20) K/uL PT 13.1 H (9.0-12.0) Seconds INR 1.2 H (0.9-1.1) APTT 29.3 (21.0-31.0) Seconds PTT Ratio 1.0 VBG pH (7.36-7.41) VBG pCO2 (38-50) mmHg VBG pO2 mmHg VBG HCO3 mmol/L VBG O2 Saturation % VBG Base Excess mEq/L POC Sodium (135-144) mmol/L Sodium 135 L (136-145) mmol/L POC Potassium (3.3-5.0) mmol/L Potassium 4.5 (3.5-5.1) mmol/L POC Chloride (101-112) mmol/L Chloride 102 (98-107) mmol/L Carbon Dioxide 26 (21-32) mmol/L POC Total CO2 (24-31) mmol/L Anion Gap 7 (3-11) POC Anion Gap (16-25) mmol/L POC BUN (7-18) mg/dl BUN 66 H (6-23) mg/dl Creatinine 4.26 H (0.6-1.4) mg/dl POC Creatinine (0.6-1.3) mg/dl Est Cr Clr Drug Dosing 15.7 ml/min Est GFR ( Amer) 13.9 ml/min Est GFR (Non-Af Amer) 12.0 ml/min BUN/Creatinine Ratio 15.5 (10-20) Glucose 80 (70-99(Fasting)) mg/dl POC Glucose (other) (70-99) mg/dl Lactate (0.4-2.0) mmol/L Calcium 8.3 L (8.6-10.3) mg/dl POC Ioniz Calcium Donell (1.12-1.32) mmol/l Magnesium 1.7 (1.7-2.4) mg/dl Total Bilirubin 0.5 (0.2-1.0) mg/dl Direct Bilirubin 0.1 (0-0.2) mg/dl AST 17 (13-39) U/L ALT 13 (7-52) U/L Alkaline Phosphatase 86 (34-104) U/L Total Creatine Kinase 88 (30-223) U/L Troponin I High Sens 6.2 (0-20) pg/ml Total Protein 6.2 (6.0-8.3) gm/dl Albumin 3.0 L (3.4-5.0) gm/dl Procalcitonin (0-0.5) ng/ml TSH (0.300-4.500) uIu/ml Urine Color Urine Appearance (Clear) Urine pH (4.5-7.5) Ur Specific Otho (1.000-1.030) Urine Protein (Negative) Urine Glucose (UA) (Negative) Urine Ketones (Negative) Urine Blood (Negative) Urine Nitrite (Negative) Urine Bilirubin (Negative) Urine Urobilinogen (Negative) Ur Leukocyte Esterase (Negative) Urine WBC (Auto) (0-5) /hpf Urine RBC (Auto) (0-4) /hpf U Hyaline Cast (Auto) (0-5) /lpf U Epithel Cells (Auto) (0-5) /lpf Urine Bacteria (Auto) (Negative) Urine Yeast (None Prsent) SARS-CoV-2 (PCR) (Negative) Influenza Type A (PCR) (Neg) Influenza Type B (PCR) (Neg) RSV (RT-PCR) (Neg) 02/15/23 02/15/23 02/15/23 Range/Units 17:09 17:09 17:09 WBC (4.8-10.8) K/ul RBC (4.70-6.10) M/uL Hgb (14.0-18.0) g/dl POC Hgb (14.0-18.0) g/dl Hct (42.0-52.0) % POC Hct (42-52) % MCV (80.0-100.0) fL MCH (25.0-34.0) pg MCHC (32.0-36.0) g/dL RDW Std Deviation (36.4-46.3) fL RDW Coeff of Sandrita (11.5-14.5) % Plt Count (130-400) K/uL MPV (9.4-12.4) fL Immature Gran % (Auto) % Neut % (Auto) % Lymph % (Auto) % Upton % (Auto) % Eos % (Auto) % Baso % (Auto) % Neut # (Auto) (1.40-6.50) K/uL Lymph # (Auto) (1.2-3.4) K/uL Upton # (Auto) (0.11-0.59) K/uL Eos # (Auto) (0-0.50) K/uL Baso # (Auto) (0-0.2) K/uL Immature Gran # (Auto) (0.01-0.20) K/uL PT (9.0-12.0) Seconds INR (0.9-1.1) APTT (21.0-31.0) Seconds PTT Ratio VBG pH 7.29 L (7.36-7.41) VBG pCO2 57 H (38-50) mmHg VBG pO2 23 mmHg VBG HCO3 27 mmol/L VBG O2 Saturation < 60.0 % VBG Base Excess -0.3 mEq/L POC Sodium (135-144) mmol/L Sodium (136-145) mmol/L POC Potassium (3.3-5.0) mmol/L Potassium (3.5-5.1) mmol/L POC Chloride (101-112) mmol/L Chloride (98-107) mmol/L Carbon Dioxide (21-32) mmol/L POC Total CO2 (24-31) mmol/L Anion Gap (3-11) POC Anion Gap (16-25) mmol/L POC BUN (7-18) mg/dl BUN (6-23) mg/dl Creatinine (0.6-1.4) mg/dl POC Creatinine (0.6-1.3) mg/dl Est Cr Clr Drug Dosing ml/min Est GFR ( Amer) ml/min Est GFR (Non-Af Amer) ml/min BUN/Creatinine Ratio (10-20) Glucose (70-99(Fasting)) mg/dl POC Glucose (other) (70-99) mg/dl Lactate 1.8 (0.4-2.0) mmol/L Calcium (8.6-10.3) mg/dl POC Ioniz Calcium Donell (1.12-1.32) mmol/l Magnesium (1.7-2.4) mg/dl Total Bilirubin (0.2-1.0) mg/dl Direct Bilirubin (0-0.2) mg/dl AST (13-39) U/L ALT (7-52) U/L Alkaline Phosphatase (34-104) U/L Total Creatine Kinase (30-223) U/L Troponin I High Sens (0-20) pg/ml Total Protein (6.0-8.3) gm/dl Albumin (3.4-5.0) gm/dl Procalcitonin 0.14 (0-0.5) ng/ml TSH (0.300-4.500) uIu/ml Urine Color Urine Appearance (Clear) Urine pH (4.5-7.5) Ur Specific Otho (1.000-1.030) Urine Protein (Negative) Urine Glucose (UA) (Negative) Urine Ketones (Negative) Urine Blood (Negative) Urine Nitrite (Negative) Urine Bilirubin (Negative) Urine Urobilinogen (Negative) Ur Leukocyte Esterase (Negative) Urine WBC (Auto) (0-5) /hpf Urine RBC (Auto) (0-4) /hpf U Hyaline Cast (Auto) (0-5) /lpf U Epithel Cells (Auto) (0-5) /lpf Urine Bacteria (Auto) (Negative) Urine Yeast (None Prsent) SARS-CoV-2 (PCR) (Negative) Influenza Type A (PCR) (Neg) Influenza Type B (PCR) (Neg) RSV (RT-PCR) (Neg) 02/15/23 02/15/23 02/15/23 Range/Units 17:09 17:13 17:57 WBC (4.8-10.8) K/ul RBC (4.70-6.10) M/uL Hgb (14.0-18.0) g/dl POC Hgb 13.3 L (14.0-18.0) g/dl Hct (42.0-52.0) % POC Hct 39 L (42-52) % MCV (80.0-100.0) fL MCH (25.0-34.0) pg MCHC (32.0-36.0) g/dL RDW Std Deviation (36.4-46.3) fL RDW Coeff of Sandrita (11.5-14.5) % Plt Count (130-400) K/uL MPV (9.4-12.4) fL Immature Gran % (Auto) % Neut % (Auto) % Lymph % (Auto) % Upton % (Auto) % Eos % (Auto) % Baso % (Auto) % Neut # (Auto) (1.40-6.50) K/uL Lymph # (Auto) (1.2-3.4) K/uL Upton # (Auto) (0.11-0.59) K/uL Eos # (Auto) (0-0.50) K/uL Baso # (Auto) (0-0.2) K/uL Immature Gran # (Auto) (0.01-0.20) K/uL PT (9.0-12.0) Seconds INR (0.9-1.1) APTT (21.0-31.0) Seconds PTT Ratio VBG pH (7.36-7.41) VBG pCO2 (38-50) mmHg VBG pO2 mmHg VBG HCO3 mmol/L VBG O2 Saturation % VBG Base Excess mEq/L POC Sodium 136 (135-144) mmol/L Sodium (136-145) mmol/L POC Potassium 4.6 (3.3-5.0) mmol/L Potassium (3.5-5.1) mmol/L POC Chloride 100 L (101-112) mmol/L Chloride (98-107) mmol/L Carbon Dioxide (21-32) mmol/L POC Total CO2 27 (24-31) mmol/L Anion Gap (3-11) POC Anion Gap 14.0 L (16-25) mmol/L POC BUN 71 H (7-18) mg/dl BUN (6-23) mg/dl Creatinine (0.6-1.4) mg/dl POC Creatinine 4.4 H (0.6-1.3) mg/dl Est Cr Clr Drug Dosing ml/min Est GFR ( Amer) ml/min Est GFR (Non-Af Amer) ml/min BUN/Creatinine Ratio (10-20) Glucose (70-99(Fasting)) mg/dl POC Glucose (other) 73 (70-99) mg/dl Lactate (0.4-2.0) mmol/L Calcium (8.6-10.3) mg/dl POC Ioniz Calcium Donell 1.15 (1.12-1.32) mmol/l Magnesium (1.7-2.4) mg/dl Total Bilirubin (0.2-1.0) mg/dl Direct Bilirubin (0-0.2) mg/dl AST (13-39) U/L ALT (7-52) U/L Alkaline Phosphatase (34-104) U/L Total Creatine Kinase (30-223) U/L Troponin I High Sens (0-20) pg/ml Total Protein (6.0-8.3) gm/dl Albumin (3.4-5.0) gm/dl Procalcitonin (0-0.5) ng/ml TSH 1.113 (0.300-4.500) uIu/ml Urine Color Urine Appearance (Clear) Urine pH (4.5-7.5) Ur Specific Otho (1.000-1.030) Urine Protein (Negative) Urine Glucose (UA) (Negative) Urine Ketones (Negative) Urine Blood (Negative) Urine Nitrite (Negative) Urine Bilirubin (Negative) Urine Urobilinogen (Negative) Ur Leukocyte Esterase (Negative) Urine WBC (Auto) (0-5) /hpf Urine RBC (Auto) (0-4) /hpf U Hyaline Cast (Auto) (0-5) /lpf U Epithel Cells (Auto) (0-5) /lpf Urine Bacteria (Auto) (Negative) Urine Yeast (None Prsent) SARS-CoV-2 (PCR) NEGATIVE (Negative) Influenza Type A (PCR) Negative (Neg) Influenza Type B (PCR) Negative (Neg) RSV (RT-PCR) Negative (Neg) 02/15/23 02/15/23 Range/Units 19:28 Unknown WBC (4.8-10.8) K/ul RBC (4.70-6.10) M/uL Hgb (14.0-18.0) g/dl POC Hgb (14.0-18.0) g/dl Hct (42.0-52.0) % POC Hct (42-52) % MCV (80.0-100.0) fL MCH (25.0-34.0) pg MCHC (32.0-36.0) g/dL RDW Std Deviation (36.4-46.3) fL RDW Coeff of Sandrita (11.5-14.5) % Plt Count (130-400) K/uL MPV (9.4-12.4) fL Immature Gran % (Auto) % Neut % (Auto) % Lymph % (Auto) % Upton % (Auto) % Eos % (Auto) % Baso % (Auto) % Neut # (Auto) (1.40-6.50) K/uL Lymph # (Auto) (1.2-3.4) K/uL Upton # (Auto) (0.11-0.59) K/uL Eos # (Auto) (0-0.50) K/uL Baso # (Auto) (0-0.2) K/uL Immature Gran # (Auto) (0.01-0.20) K/uL PT (9.0-12.0) Seconds INR (0.9-1.1) APTT (21.0-31.0) Seconds PTT Ratio VBG pH (7.36-7.41) VBG pCO2 (38-50) mmHg VBG pO2 mmHg VBG HCO3 mmol/L VBG O2 Saturation % VBG Base Excess mEq/L POC Sodium (135-144) mmol/L Sodium (136-145) mmol/L POC Potassium (3.3-5.0) mmol/L Potassium (3.5-5.1) mmol/L POC Chloride (101-112) mmol/L Chloride (98-107) mmol/L Carbon Dioxide (21-32) mmol/L POC Total CO2 (24-31) mmol/L Anion Gap (3-11) POC Anion Gap (16-25) mmol/L POC BUN (7-18) mg/dl BUN (6-23) mg/dl Creatinine (0.6-1.4) mg/dl POC Creatinine (0.6-1.3) mg/dl Est Cr Clr Drug Dosing ml/min Est GFR ( Amer) ml/min Est GFR (Non-Af Amer) ml/min BUN/Creatinine Ratio (10-20) Glucose (70-99(Fasting)) mg/dl POC Glucose (other) (70-99) mg/dl Lactate (0.4-2.0) mmol/L Calcium (8.6-10.3) mg/dl POC Ioniz Calcium Donell (1.12-1.32) mmol/l Magnesium (1.7-2.4) mg/dl Total Bilirubin (0.2-1.0) mg/dl Direct Bilirubin (0-0.2) mg/dl AST (13-39) U/L ALT (7-52) U/L Alkaline Phosphatase (34-104) U/L Total Creatine Kinase Cancelled (30-223) U/L Troponin I High Sens (0-20) pg/ml Total Protein (6.0-8.3) gm/dl Albumin (3.4-5.0) gm/dl Procalcitonin (0-0.5) ng/ml TSH (0.300-4.500) uIu/ml Urine Color Yellow Urine Appearance Cloudy A (Clear) Urine pH 5.0 (4.5-7.5) Ur Specific Otho 1.013 (1.000-1.030) Urine Protein Trace H (Negative) Urine Glucose (UA) Negative (Negative) Urine Ketones Negative (Negative) Urine Blood 2+ H (Negative) Urine Nitrite Negative (Negative) Urine Bilirubin Negative (Negative) Urine Urobilinogen Negative (Negative) Ur Leukocyte Esterase 1+ H (Negative) Urine WBC (Auto) 10-30 H (0-5) /hpf Urine RBC (Auto) 5-10 H (0-4) /hpf U Hyaline Cast (Auto) 5-10 H (0-5) /lpf U Epithel Cells (Auto) 20-30 H (0-5) /lpf Urine Bacteria (Auto) Negative (Negative) Urine Yeast Present A (None Prsent) SARS-CoV-2 (PCR) (Negative) Influenza Type A (PCR) (Neg) Influenza Type B (PCR) (Neg) RSV (RT-PCR) (Neg) Administered Medications Norepinephrine Bitartrate (Levophed/D5w) 4 mg in 250 mls @ 0 mls/hr IV .Q0M [facility]; Protocol Stop: 03/17/23 18:14 Last Titration: 02/15/23 21:33 Dose: 0.02 mcg/kg/min, 7.9 mls/hr Documented By: Titration: 02/15/23 20:44 Dose: 0 mcg/kg/min, 0 mls/hr Documented By: Titration: 02/15/23 20:24 Dose: 0.04 mcg/kg/min, 15.8 mls/hr Documented By: Titration: 02/15/23 20:12 Dose: 0.06 mcg/kg/min, 23.7 mls/hr Documented By: Titration: 02/15/23 19:55 Dose: 0.08 mcg/kg/min, 31.6 mls/hr Documented By: Admin: 02/15/23 18:12 Dose: 0.1 mcg/kg/min, 39.5 mls/hr Documented By: BARBY Co-signed By: SUN Sodium Chloride (Nss 1000ml) 1,000 mls @ 200 mls/hr IV .Q5H ONE Stop: 02/16/23 00:44 Last Admin: 02/15/23 21:14 Dose: 200 mls/hr Documented By: Discontinued Medications Sodium Chloride (Nss 1000ml) 1,000 mls @ 999 mls/hr IV .Q1H1M ONE Stop: 02/15/23 17:53 Last Infusion: 02/15/23 17:55 Dose: 0 mls/hr Documented By: Admin: 02/15/23 16:53 Dose: 999 mls/hr Documented By: SUN Piperacillin Sod/Tazobactam Sod (Zosyn) 4.5 gm in 120 mls @ 240 mls/hr IV NOW ONE Stop: 02/15/23 18:18 Last Infusion: 02/15/23 18:55 Dose: 0 mls/hr Documented By: Admin: 02/15/23 17:59 Dose: 240 mls/hr Documented By: SUN Sodium Chloride (Nss 1000ml) 1,000 mls @ 999 mls/hr IV .Q1H1M ONE Stop: 02/15/23 18:49 Last Infusion: 02/15/23 19:24 Dose: 0 mls/hr Documented By: Admin: 02/15/23 17:56 Dose: 999 mls/hr Documented By: SUN Sodium Chloride (Nss 1000ml) 1,000 mls @ 999 mls/hr IV .Q1H1M ONE Stop: 02/15/23 19:47 Last Infusion: 02/15/23 19:58 Dose: 0 mls/hr Documented By: Admin: 02/15/23 18:55 Dose: 999 mls/hr Documented By: SUN Magnesium Sulfate/Dextrose (Magnesium Sulfate / D5w) 1 gm in 100 mls @ 50 mls/hr IV ONE STA Stop: 02/15/23 21:27 Last Infusion: 02/15/23 21:38 Dose: 0 mls/hr Documented By: Admin: 02/15/23 19:34 Dose: 50 mls/hr Documented By: LUIS Metronidazole (Flagyl) 500 mg in 100 mls @ 100 mls/hr IV NOW STA Stop: 02/15/23 21:45 Last Infusion: 02/15/23 21:24 Dose: 0 mls/hr Documented By: Admin: 02/15/23 20:51 Dose: 100 mls/hr Documented By: LUIS Norepinephrine Bitartrate (Norepinephrine/D5w 4 Mg/250 Ml) Confirm Administered Dose 4 mg IV .STK-MED ONE Stop: 02/15/23 18:10 Last Admin: 02/15/23 18:12 Dose: Not Given Documented By: BARBY Imaging Data Attestation: I personally reviewed and interpreted this imaging study as follows: My Impression: 1 view chest x-ray was obtained in the emergency department. My interpretation is cardiomegaly, no definite infiltrate, no free air, final report below. Radiologist's Impression: Abdomen/Pelvis CT 02/15/23 16:48 CT abd pelvis wo con CLINICAL HISTORY: hypotension TECHNIQUE: Helical axial images of the abdomen and pelvis were obtained. Automated dose lowering techniques and/or adjustment according to patient size were utilized for this exam. This exam was performed without intravenous contrast. COMPARISON: None available at the time of this dictation. FINDINGS: Lower chest: No acute abnormality. Liver: Unremarkable. No focal lesions are seen. Gallbladder and biliary tree: Layering radiodense material is seen in the depe ndent portion of the likely representing sludge. No intra- or extrahepatic biliary ductal dilation. Pancreas: Unremarkable, no focal lesions. Spleen: Unremarkable. Adrenals: Unremarkable. Kidneys and ureters: Perinephric stranding is noted bilaterally. Bladder: Linares catheter is seen. Reproductive organs: Unremarkable. Bowel: Diverticulosis is seen without evidence of diverticulitis. Moderate hiatal hernia is seen. Lymph nodes Retroperitoneal: Unremarkable. Pelvic: Unremarkable. Mesenteric: Unremarkable. Peritoneum: Normal. Vessels: Atherosclerotic calcifications are seen. Abdominal wall: A fat-containing umbilical hernia is seen. Left inguinal hernia is also noted. Bones: Degenerative changes in the visualized spine. IMPRESSION: No acute abnormalities are seen. ACT 112: Negative or not required by law. Electronically signed by: Juan Pennington M.D. 02/15/2023 7:28 PM Chest X-Ray 02/15/23 16:48 XR chest 1V portable HISTORY: Sepsis COMPARISON: Chest 01/15/2023. FINDINGS: There are low lung volumes. No pneumothorax. Slightly rotated study. No evidence for pulmonary edema. The heart remains mildly enlarged. A hiatal hernia is again noted. No new focal lung consolidations to suggest a pneumonia. IMPRESSION: No significant change compared to the prior study. No acute process. A large hiatus hernia is again noted. ACT 112: Negative or not required by law. Electronically signed by: Stewart Salinas M.D. 02/15/2023 5:[address] 02/15/23 16:48 CT head/brain wo con CLINICAL HISTORY: AMS Technique: Contiguous axial CT images of the head were acquired from the base of the skull to the vertex without intravenous contrast administration. Images were viewed in brain, subdural and bone windows. Automated dose lowering techniques and/or adjustment according to patient size were utilized for this exam. Comparison: Comparison is made to CT head 01/15/2023 Findings: Areas of decreased attenuation are present in the periventricular and s ubcortical white matter bilaterally consistent with small vessel ischemic disease. Generalized cerebral atrophy with commensurate enlargement of the ventricles, sulci, and cisterns is also present. There is no acute intracranial hemorrhage or evidence of acute territorial infarction. No shift of the midline structures, mass effect, or extra-axial abnormalities are shown. Atherosclerotic calcifications are present in the intracranial segments of the internal carotid arteries. Imaged portions of the paranasal sinuses and mastoid air cells are clear. The orbits appear normal. Soft tissue swelling is seen in the right anterior frontal region. Impression: No acute intracranial hemorrhage, no evidence of acute territorial infarction or other acute intracranial disease process. ACT 112: Negative or not required by law. Electronically signed by: Juan Pennington M.D. 02/15/2023 7:[address] 02/15/23 17:24 CT chest diagnostic wo con CLINICAL HISTORY: clavicle dislocation TECHNIQUE: Multidetector row helical CT of the chest was performed. Coronal and sagittal reformations were obtained. Automated dose lowering techniques and/or adjustment according to patient size were utilized for this exam. CT DOSE: 4455.41 mGy.cm Comparison: Comparison is made to CT chest 05/27/2021 FINDINGS: Lungs and pleura: Diffuse centrilobular emphysema is seen most prominent in the upper lobes. Bronchial wall thickening and atelectasis are seen. Heart and pericardium: Heart size is normal. No pericardial effusion. Vessels: Moderate atherosclerotic changes in the aorta and coronary arteries. Mediastinum and mary: Unremarkable. Chest wall and lower neck: Unremarkable. Abdomen: Moderate hiatal hernia is seen. Please see CT abdomen for findings below the diaphragm. Bones: The left clavicle/manubrial joint appears somewhat anteromedially displaced compared to the right. IMPRESSION: No acute fracture or thoracic abnormality. There may be mild subluxation of the left acromioclavicular joint. ACT 112: Negative or not required by law. Electronically signed by: Juan Pennington M.D. 02/15/2023 7:22 PM Discharge Plan Visit Data Chief Complaint: Illness Stated Complaint: ILLNESS ED Provider: Martinez Vidales Discharge Problem: Acute renal failure, Acute hypotension, Urinary tract infection, Acute dehydration Patient Disposition: Being Evaluated by Hospitalist Forms Stand Alone Forms: My [employer] Information Prescriptions Prescriptions: No Action latanoprost 0.005 % Drops 1 drp OPHTHALMIC (EYE) PM ondansetron HCl 4 mg Tablet 4 mg PO TID PRN (Reason: Nausea) isosorbide mononitrate 30 mg Tablet Extended Release 24 Hr 30 mg PO DAILY Novolin 70/30 U-100 Insulin 100 unit/mL (70-30) Suspension 12 unit SUBCUT BID clopidogrel [Plavix] 75 mg Tablet 75 mg PO DAILY aspirin [Aspir-Low] 81 mg Tablet,Delayed Release (Dr/Ec) 81 mg PO DAILY doxazosin 8 mg Tablet 8 mg PO HS doxycycline monohydrate 100 mg Capsule 100 mg PO BID Rx Instructions: stop 02/24/2023 fluoxetine 20 mg Tablet 20 mg PO DAILY Novolin R Regular U-100 Insuln 100 unit/mL Solution 1 sliding scale dose SUBCUT USEASDIRECTD Rx Instructions: Per sliding scale, >451 call metoprolol tartrate 50 mg Tablet 50 mg PO BID bumetanide [Bumex] 1 mg Tablet 1 mg PO DAILY levofloxacin [Levaquin] 750 mg Tablet 750 mg PO DAILY Rx Instructions: Stop 02/20/2023 albuterol sulfate 90 mcg/actuation Hfa Aerosol Inhaler 2 puff INHALATION QID PRN (Reason: Shortness Of Breath) lisinopril 40 mg Tablet 40 mg PO DAILY rosuvastatin 10 mg Tablet 10 mg PO DAILY cranberry extract 250 mg Tablet 250 mg PO DAILY Alvesco 160 mcg/actuation Hfa Aerosol Inhaler 2 puff INHALATION BID PRN (Reason: Shortness Of Breath Or Wheezing) menthol-zinc oxide [Calmoseptine] 0.44-20.6 % Ointment 1 applic TOPICAL QID PRN (Reason: flare ups) Referrals Referrals: Gregory MCCORMICK [Primary Care Provider] -
[2023-02-15 17:25] LABS: Base Excess VBG -0.3 mEq/L; HCO3 VBG 27 mmol/L; Oxygen Saturation VBG < 60.0 %; PCO2 VBG 57 mmHg (38-50); PO2 VBG 23 mmHg; pH VBG 7.29 (7.36-7.41)
[2023-02-15 17:26] LABS: iSTAT Creatinine 4.4 mg/dl (0.6-1.3); iSTAT Hemoglobin 13.3 g/dl (14.0-18.0); iSTAT Ionized Calcium 1.15 mmol/l (1.12-1.32); iSTAT Potassium 4.6 mmol/L (3.3-5.0)
--- NOTE | 2023-02-15 17:28 | XRay Report ---
XR chest 1V portable HISTORY: Sepsis COMPARISON: Chest 01/15/2023. FINDINGS: There are low lung volumes. No pneumothorax. Slightly rotated study. No evidence for pulmon estrada edema. The heart remains mildly enlarged. A hiatal hernia is again noted. No new focal lung conso lidations to suggest a pneumonia. IMPRESSION: No significant change compared to the prior study. No acute process. A large hiatus hernia is again n oted. ACT 112: Negative or not required by law. Electronically signed by: Stewart Salinas M.D. 02/15/2023 5:27 PM
[2023-02-15 17:33] LABS: Basophils # (auto) 0.04 K/uL (0-0.2); Basophils % (auto) 0.3 %; Eosinophils # (auto) 0.16 K/uL (0-0.50); Eosinophils % (auto) 1.3 %; Hematocrit (blood only) 40.3 % (42.0-52.0); Hemoglobin 13.1 g/dl (14.0-18.0); Immature Granulocytes # (auto) 0.05 K/uL (0.01-0.20); Immature Granulocytes % (auto) 0.4 %; Lymphocytes # (auto) 1.21 K/uL (1.2-3.4); Lymphocytes % (auto) 9.5 %; Mean Corpuscular Hemoglobin 28.5 pg (25.0-34.0); Mean Corpuscular Hgb Conc 32.5 g/dL (32.0-36.0); Mean Corpuscular Volume 87.6 fL (80.0-100.0); Monocytes # (auto) 1.38 K/uL (0.11-0.59); Monocytes % (auto) 10.8 %; Neutrophils # (auto) 9.91 K/uL (1.40-6.50); Neutrophils % (auto) 77.7 %; Platelet Count 210 K/uL (130-400); RDW Standard Deviation 44.5 fL (36.4-46.3); White Blood Count 12.75 K/ul (4.8-10.8)
[2023-02-15 17:45] LABS: BUN Creatinine Ratio 15.5 (10-20); Bilirubin Direct 0.1 mg/dl (0-0.2); Bilirubin,Total 0.5 mg/dl (0.2-1.0); Calcium 8.3 mg/dl (8.6-10.3); Creatinine Clr Calc Pharmacy 15.7 ml/min; Est GFR (African American) 13.9 ml/min; Magnesium 1.7 mg/dl (1.7-2.4); Potassium 4.5 mmol/L (3.5-5.1); Total Protein 6.2 gm/dl (6.0-8.3)
[2023-02-15] MEDS ORDERED: PIPERACILLIN/TAZOBACTAM 4.5 GM/120 ML BAG IV ONE (17:49)
[2023-02-15 17:51] LABS: Troponin I High Sensitivity 6.2 pg/ml (0-20)
[2023-02-15 17:57] LABS: INR 1.2 (0.9-1.1); Partial Thromboplastin Time 29.3 Seconds (21.0-31.0); Prothrombin Time 13.1 Seconds (9.0-12.0)
[2023-02-15] MEDS ORDERED: STAT IV Infusion **Titration per Protocol STA (18:08)
[2023-02-15] MEDS ORDERED: NOREPINEPHRINE/D5W 4 MG/250 ML IV ONE (18:09)
[2023-02-15] MEDS ORDERED: NOREPINEPHRINE/D5W 4 MG/250 ML PLCT IV SCH (18:15)
[2023-02-15 18:55] LABS: Influenza A virus by PCR Negative (Neg); Influenza B virus by PCR Negative (Neg); RSV by PCR Negative (Neg); SARS CoV2 RNA(COVID-19) Ceph NEGATIVE (Negative)
[2023-02-15 19:11] LABS: Appearance Urine Cloudy (Clear); Bacteria Urine Automated Negative (Negative); Bilirubin Urine Negative (Negative); Blood Urine 2+ (Negative); Color Urine Yellow; Epithelial Cell Urine Auto 20-30 /lpf (0-5); Glucose Urine UA Negative (Negative); Ketones Urine Negative (Negative); Leukocyte Esterase Urine 1+ (Negative); Nitrite Urine Negative (Negative); Protein Urine Trace (Negative); Specific Gravity Urine 1.013 (1.000-1.030); Urobilinogen Urine Negative (Negative)
--- NOTE | 2023-02-15 19:18 | CT Scan Report ---
CT head/brain wo con CLINICAL HISTORY: AMS Technique: Contiguous axial CT images of the head were acquired from the base of the skull to the marika bubba without intravenous contrast administration. Images were viewed in brain, subdural and [facility]. Automated dose lowering techniques and/or adjustment according to patient size were utilized for this exam. Comparison: Comparison is made to CT head 01/15/2023 Findings: Areas of decreased attenuation are present in the periventricular and subcortical white matter bilate rally consistent with small vessel ischemic disease. Generalized cerebral atrophy with commensurate e nlargement of the ventricles, sulci, and cisterns is also present. There is no acute intracranial hem orrhage or evidence of acute territorial infarction. No shift of the midline structures, mass effect, or extra-axial abnormalities are shown. Atherosclerotic calcifications are present in the intracran ial segments of the internal carotid arteries. Imaged portions of the paranasal sinuses and mastoid air cells are clear. The orbits appear normal. Soft tissue swelling is seen in the right anterior frontal region. Impression: No acute intracranial hemorrhage, no evidence of acute territorial infarction or other acute intracra nial disease process. ACT 112: Negative or not required by law. Electronically signed by: Juan Pennington M.D. 02/15/2023 7:16 PM
--- NOTE | 2023-02-15 19:25 | CT Scan Report ---
CT chest diagnostic wo con CLINICAL HISTORY: clavicle dislocation TECHNIQUE: Multidetector row helical CT of the chest was performed. Coronal and sagittal reformations were obtained. Automated dose lowering techniques and/or adjustment according to patient size were u tilized for this exam. CT DOSE: 4455.41 mGy.cm Comparison: Comparison is made to CT chest 05/27/2021 FINDINGS: Lungs and pleura: Diffuse centrilobular emphysema is seen most prominent in the upper lobes. Bronchia l wall thickening and atelectasis are seen. Heart and pericardium: Heart size is normal. No pericardial effusion. Vessels: Moderate atherosclerotic changes in the aorta and coronary arteries. Mediastinum and mary: Unremarkable. Chest wall and lower neck: Unremarkable. Abdomen: Moderate hiatal hernia is seen. Please see CT abdomen for findings below the diaphragm. Bones: The left clavicle/manubrial joint appears somewhat anteromedially displaced compared to the ri ght. IMPRESSION: No acute fracture or thoracic abnormality. There may be mild subluxation of the left acromioclavicula r joint. ACT 112: Negative or not required by law. Electronically signed by: Juan Pennington M.D. 02/15/2023 7:22 PM
[2023-02-15] MEDS ORDERED: MAGNESIUM SULFATE / D5W 1 GM/100 ML BAG IV STA (19:28)
--- NOTE | 2023-02-15 19:30 | CT Scan Report ---
CT abd pelvis wo con CLINICAL HISTORY: hypotension TECHNIQUE: Helical axial images of the abdomen and pelvis were obtained. Automated dose lowering tech niques and/or adjustment according to patient size were utilized for this exam. This exam was perfor med without intravenous contrast. COMPARISON: None available at the time of this dictation. FINDINGS: Lower chest: No acute abnormality. Liver: Unremarkable. No focal lesions are seen. Gallbladder and biliary tree: Layering radiodense material is seen in the dependent portion of the li douglas representing sludge. No intra- or extrahepatic biliary ductal dilation. Pancreas: Unremarkable, no focal lesions. Spleen: Unremarkable. Adrenals: Unremarkable. Kidneys and ureters: Perinephric stranding is noted bilaterally. Bladder: Linares catheter is seen. Reproductive organs: Unremarkable. Bowel: Diverticulosis is seen without evidence of diverticulitis. Moderate hiatal hernia is seen. Lymph nodes Retroperitoneal: Unremarkable. Pelvic: Unremarkable. Mesenteric: Unremarkable. Peritoneum: Normal. Vessels: Atherosclerotic calcifications are seen. Abdominal wall: A fat-containing umbilical hernia is seen. Left inguinal hernia is also noted. Bones: Degenerative changes in the visualized spine. IMPRESSION: No acute abnormalities are seen. ACT 112: Negative or not required by law. Electronically signed by: Juan Pennington M.D. 02/15/2023 7:28 PM
[2023-02-15] MEDS ORDERED: metroNIDAZOLE 500 MG/100 ML BAG IV STA (20:46)
--- NOTE | 2023-02-15 21:01 | History & Physical Report ---
Date of Service February 15, 2023 Assessment & Plan (1) Hypotension: Plan: Secondary to hypovolemia secondary to diarrheal illness rule out C. difficile given recent antibiotic Rx Rule out cardiac dysfunction Rule out sepsis/occult bacterial infection Transient atrial flutter (no previous diagnosis), patient currently NSR ARF secondary to illness hx CHF as per records, patient clinically dry hx CAD status post stent COPD, patient without new pulmonary complaints although ABG shows respiratory acidosis hyperlipidemia, on statin Rx DM2 insulin requiring, well-controlled as of hemoglobin A1c of 7 last month BCC, nose status post surgery/failed flap reconstruction (December 2022) and subsequent takedown (01/2023), on Doxycycline course chronic anemia, hemoglobin at baseline history of MRSA past tobacco abuse ICU wean off pressor Rx Baseline UA, monitor creatinine response to IVF, Nephrology consult if without improvement Appropriate to hold antihypertensive medications and diuretics for now given hypotension CS, hold off on antibiotics other than patient's doxycycline course until bacterial source found Stool C. difficile, IV Flagyl 1 dose given possible sepsis TTE Re: hypotension, transient atrial flutter Cardiology consult Re: Transient atrial flutter Recheck ABG, BiPAP contraindicated given recent facial surgery Basal bolus insulin adjusted for decreased renal function, ISS BG goal 1 40-1 80, carb count coverage DVT prophylaxis. Heparin subcu Full code Text document was generated using [employer] voice recognition software. It may contain grammatical or spelling errors. Kindly contact undersigned for clarification of any documentation item in question. History of Present Illness Chief Complaint: Low blood pressure Primary Care Provider: ANNY Lawrenec History obtained from patient and records. Patient is a fair historian. Medical history significant for CHF as per records, CAD status post stent, COPD, hypertension, hyperlipidemia, DM2 insulin requiring, skin cancer nose status post surgery/failed flap reconstruction (December 2022) and subsequent takedown, chronic anemia (baseline hemoglobin of 13 ), history of MRSA, past tobacco abuse. 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 Patient confined last month failed flap, infected nasal reconstruction, kidney dysfunction. Wound cultures grew MRSA. Patient discharged on doxycycline course. Creatinine back to normal on discharge. 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 Subsequent forehead flap takedown procedure done at the office. Room Service Waiter/Waitress worried about compliance with doxycycline and wound care instructions at the intermediate on outpatient follow-up visit 2 weeks ago. Last week, patient noted watery diarrhea symptoms with some abdominal pain. No unusual chest pain, SOB. Patient denies unusual cough symptoms. Patient noted to have rhonchi on exam as per facility notes. [facility]. Patient noted to be persistently hypotensive, SBP 70s despite IV fluids. Lowest SBP of 60s noted at the ER. Zosyn administered at the ER. Levophed infusion initiated at the ER. Medical Historyas above Surgical History : Appendectomy, nasal flap reconstruction/takedown Family History : Heart disease Personal/Social history : Past tobacco abuse, no EtOH intake, intermediate inmate Allergies Allergy/AdvReac Type Severity Reaction Status Date / Time Sulfa (Sulfonamide Allergy Unknown ON SCI Verified 02/15/23 19:23 Antibiotics) [facility] MED LIST Home Medications Medication Instructions Recorded Confirmed Type albuterol sulfate 90 mcg/actuation 2 puff inhalation QID PRN 02/15/23 02/15/23 History aerosol inhaler Shortness Of Breath aspirin 81 mg tablet,delayed 81 mg PO DAILY 02/15/23 02/15/23 History release bumetanide 1 mg tablet 1 mg PO DAILY 02/15/23 02/15/23 History ciclesonide 160 mcg/actuation 2 puff inhalation BID PRN 02/15/23 02/15/23 History aerosol inhaler (Alvesco) Shortness Of Breath Or Wheezing clopidogrel 75 mg tablet (Plavix) 75 mg PO DAILY 02/15/23 02/15/23 History cranberry extract 250 mg tablet 250 mg PO DAILY 02/15/23 02/15/23 History doxazosin 8 mg tablet 8 mg PO HS 02/15/23 02/15/23 History doxycycline monohydrate 100 mg 100 mg PO BID 02/15/23 02/15/23 History capsule fluoxetine 20 mg tablet 20 mg PO DAILY 02/15/23 02/15/23 History insulin human U-100 NPH-regulr 12 unit subcut BID 02/15/23 02/15/23 History 70-30 mix 100 unit/mL subcutaneous susp (Novolin 70/30 U-100 Insulin) insulin regular human 100 unit/mL 1 sliding scale dose subcut 02/15/23 02/15/23 History injection solution (Novolin R USEASDIRECTD Regular U-100 Insulin) isosorbide mononitrate 30 mg 30 mg PO DAILY 02/15/23 02/15/23 History tablet,extended release 24 hr latanoprost 0.005 % eye drops 1 drp ophthalmic (eye) PM 02/15/23 02/15/23 History levofloxacin 750 mg tablet 750 mg PO DAILY 02/15/23 02/15/23 History lisinopril 40 mg tablet 40 mg PO DAILY 02/15/23 02/15/23 History menthol 0.44 %-zinc oxide 20.6 % 1 applic topical QID PRN flare ups 02/15/23 History topical ointment (Calmoseptine) metoprolol tartrate 50 mg tablet 50 mg PO BID 02/15/23 02/15/23 History ondansetron HCl 4 mg tablet 4 mg PO TID PRN Nausea 02/15/23 02/15/23 History rosuvastatin 10 mg tablet 10 mg PO DAILY 02/15/23 02/15/23 History Past Med/Surg History Medical History CHF (congestive heart failure) COPD (chronic obstructive pulmonary disease) Diabetes High blood pressure Surgical History H/O inguinal hernia repair History of appendectomy Hx of CABG No pertinent past surgical history Family History Father Coronary heart disease Diabetes Social History Smoking Status: Former smoker Tobacco Type: Cigarettes Hx Alcohol Use: No Hx Substance Use: No Preferred Language: Tamazight Communication Ability: Effective Data Typist Required: No Beliefs That Will Affect Care: None Current Living Situation: Other Current Living Situation Comment: [facility] lawrence Other Information That Helps Us Care for You: No Feels Safe at Home: Yes Assistive Devices: None Review of Systems Review of Systems: As per HPI, all other systems reviewed and negative Physical Exam Physical Exam: GENERAL: oriented to place, comfortable, morbidly obese, hard of hearing, no respiratory distress SKIN: Pallor, warm HEENT: Partial alopecia, dressing over skull vertex, pale palpebral conjunctivae, no ptosis, dry buccal mucosa, O2 mask in place NECK : Supple, short neck, no tenderness CHEST : Decreased breath sounds, no tenderness HEART : RRR, no obvious murmurs ABDOMEN: Some distention, nontender EXTREMITIES : Minimal LE swelling, no LE tenderness, no other conspicuous deformities noted NEUROLOGIC : Oriented to place, no facial asymmetry, hard of hearing, gait and stance not assessed Results & Data Results & Data Vital Signs (Past 12 Hours) Vital Signs Temp Pulse Resp BP Pulse Ox O2 Del Method O2 Flow Rate 02/15/23 20:55 68 12 101/81 97 Oxymask 2 02/15/23 20:58 67 02/15/23 20:50 66 12 105/67 96 Oxymask 2 02/15/23 20:45 67 14 108/61 97 Oxymask 2 02/15/23 20:40 66 15 116/65 97 Oxymask 2 02/15/23 20:35 66 16 99/62 L 97 Oxymask 2 02/15/23 20:31 64 14 128/60 96 Oxymask 2 02/15/23 20:25 64 13 106/63 96 Oxymask 2 02/15/23 20:20 65 16 123/60 97 Oxymask 2 02/15/23 20:15 66 16 117/68 94 Oxymask 2 02/15/23 20:09 69 14 126/67 94 02/15/23 20:05 65 13 126/74 96 02/15/23 20:00 65 15 112/75 96 02/15/23 19:55 66 15 150/71 H 98 02/15/23 19:50 67 10 L 139/79 96 02/15/23 19:45 65 12 151/71 H 96 02/15/23 19:40 65 16 135/69 98 Oxymask 2 02/15/23 19:36 65 17 132/61 97 Oxymask 2 02/15/23 19:31 67 16 138/69 96 Oxymask 2 02/15/23 19:25 64 12 131/67 97 Oxymask 2 02/15/23 19:20 71 12 128/70 96 Oxymask 2 02/15/23 19:15 65 16 138/79 97 Oxymask 2 02/15/23 19:10 63 13 146/61 H 99 Oxymask 2 02/15/23 19:05 63 12 144/64 H 95 Oxymask 2 02/15/23 19:00 62 13 144/81 H Oxymask 2 02/15/23 18:56 65 16 131/71 Oxymask 2 02/15/23 18:50 60 16 94 Oxymask 2 02/15/23 18:50 133/71 02/15/23 18:46 63 22 95 Oxymask 2 02/15/23 18:46 139/83 02/15/23 18:45 92 02/15/23 18:21 59 L 12 97 Oxymask 2 02/15/23 18:21 125/61 02/15/23 18:20 58 L 12 95 Oxymask 2 02/15/23 18:16 57 L 12 95 Oxymask 2 02/15/23 18:16 104/67 02/15/23 18:15 55 L 13 92 Oxymask 2 02/15/23 18:10 58 L 13 86 L Room Air 02/15/23 18:10 70/43 L 88 L Room Air 02/15/23 18:08 57 L 17 92 Room Air 02/15/23 18:00 60 12 02/15/23 18:00 83/50 L 02/15/23 17:55 59 L 15 02/15/23 17:55 81/46 L 02/15/23 17:50 60 12 02/15/23 17:50 86/42 L 02/15/23 17:47 57 L 13 02/15/23 17:47 60/45 L 02/15/23 17:45 55 L 14 02/15/23 17:41 56 L 13 02/15/23 17:41 97/51 L 02/15/23 17:40 56 L 12 92 Room Air 02/15/23 17:37 57 L 13 02/15/23 17:37 120/60 02/15/23 17:35 58 L 13 02/15/23 17:31 106/68 02/15/23 17:31 57 L 17 93 Room Air 02/15/23 17:30 57 L 17 02/15/23 17:25 54 L 12 02/15/23 17:25 93/49 L 02/15/23 17:20 54 L 16 02/15/23 17:20 86/52 L 0424/23 17:15 53 L 12 02/15/23 17:13 53 L 13 94 Room Air 02/15/23 17:13 84/44 L 02/15/23 17:10 54 L 13 95 Room Air 02/15/23 17:05 55 L 14 02/15/23 17:00 53 L 14 02/15/23 16:57 56 L 12 02/15/23 16:57 113/50 L 02/15/23 16:48 94 Room Air 02/15/23 16:50 36.8 C 56 L 24 120/57 L 95 Room Air 02/15/23 16:57 56 L Laboratory Results Laboratory Results WBC 12.75 K/ul (4.8-10.8) H 02/15/23 17:09 RBC 4.60 M/uL (4.70-6.10) L 02/15/23 17:09 Hgb 13.1 g/dl (14.0-18.0) L 02/15/23 17:09 POC Hgb 13.3 g/dl (14.0-18.0) L 02/15/23 17:13 Hct 40.3 % (42.0-52.0) L 02/15/23 17:09 POC Hct 39 % (42-52) L 02/15/23 17:13 MCV 87.6 fL (80.0-100.0) 02/15/23 17:09 MCH 28.5 pg (25.0-34.0) 02/15/23 17:09 MCHC 32.5 g/dL (32.0-36.0) 02/15/23 17:09 RDW Std Deviation 44.5 fL (36.4-46.3) 02/15/23 17:09 RDW Coeff of Sandrita 14.0 % (11.5-14.5) 02/15/23 17:09 Plt Count 210 K/uL (130-400) 02/15/23 17:09 MPV 12.0 fL (9.4-12.4) 02/15/23 17:09 Immature Gran % (Auto) 0.4 % 02/15/23 17:09 Neut % (Auto) 77.7 % 02/15/23 17:09 Lymph % (Auto) 9.5 % 02/15/23 17:09 [place] % (Auto) 10.8 % 02/15/23 17:09 Eos % (Auto) 1.3 % 02/15/23 17:09 Baso % (Auto) 0.3 % 02/15/23 17:09 Neut # (Auto) 9.91 K/uL (1.40-6.50) H 02/15/23 17:09 Lymph # (Auto) 1.21 K/uL (1.2-3.4) 02/15/23 17:09 [place] # (Auto) 1.38 K/uL (0.11-0.59) H 02/15/23 17:09 Eos # (Auto) 0.16 K/uL (0-0.50) 02/15/23 17:09 Baso # (Auto) 0.04 K/uL (0-0.2) 02/15/23 17:09 Immature Gran # (Auto) 0.05 K/uL (0.01-0.20) 02/15/23 17:09 PT 13.1 Seconds (9.0-12.0) H 02/15/23 17:09 INR 1.2 (0.9-1.1) H 02/15/23 17:09 APTT 29.3 Seconds (21.0-31.0) 02/15/23 17:09 PTT Ratio 1.0 02/15/23 17:09 VBG pH 7.29 (7.36-7.41) L 02/15/23 17:09 VBG pCO2 57 mmHg (38-50) H 02/15/23 17:09 VBG pO2 23 mmHg 02/15/23 17:09 VBG HCO3 27 mmol/L 02/15/23 17:09 VBG O2 Saturation < 60.0 % 02/15/23 17:09 VBG Base Excess -0.3 mEq/L 02/15/23 17:09 POC Sodium 136 mmol/L (135-144) 02/15/23 17:13 Sodium 135 mmol/L (136-145) L 02/15/23 17:09 POC Potassium 4.6 mmol/L (3.3-5.0) 02/15/23 17:13 Potassium 4.5 mmol/L (3.5-5.1) 02/15/23 17:09 POC Chloride 100 mmol/L (101-112) L 02/15/23 17:13 Chloride 102 mmol/L (98-107) 02/15/23 17:09 Carbon Dioxide 26 mmol/L (21-32) 02/15/23 17:09 POC Total CO2 27 mmol/L (24-31) 02/15/23 17:13 Anion Gap 7 (3-11) 02/15/23 17:09 POC Anion Gap 14.0 mmol/L (16-25) L 02/15/23 17:13 POC BUN 71 mg/dl (7-18) H 02/15/23 17:13 BUN 66 mg/dl (6-23) H 02/15/23 17:09 Creatinine 4.26 mg/dl (0.6-1.4) H 02/15/23 17:09 POC Creatinine 4.4 mg/dl (0.6-1.3) H 02/15/23 17:13 Est Cr Clr Drug Dosing 15.7 ml/min 02/15/23 17:09 Est GFR ( Amer) 13.9 ml/min 02/15/23 17:09 Est GFR (Non-Af Amer) 12.0 ml/min 02/15/23 17:09 BUN/Creatinine Ratio 15.5 (10-20) 02/15/23 17:09 Glucose 80 mg/dl (70-99(Fasting)) 02/15/23 17:09 POC Glucose (other) 73 mg/dl (70-99) 02/15/23 17:13 Lactate 1.8 mmol/L (0.4-2.0) 02/15/23 17:09 Calcium 8.3 mg/dl (8.6-10.3) L 02/15/23 17:09 POC Ioniz Calcium [place] 1.15 mmol/l (1.12-1.32) 02/15/23 17:13 Magnesium 1.7 mg/dl (1.7-2.4) 02/15/23 17:09 Total Bilirubin 0.5 mg/dl (0.2-1.0) 02/15/23 17:09 Direct Bilirubin 0.1 mg/dl (0-0.2) 02/15/23 17:09 AST 17 U/L (13-39) 02/15/23 17:09 ALT 13 U/L (7-52) 02/15/23 17:09 Alkaline Phosphatase 86 U/L (34-104) 02/15/23 17:09 Total Creatine Kinase Cancelled 02/15/23 19:28 Troponin I High Sens 6.2 pg/ml (0-20) 02/15/23 17:09 Total Protein 6.2 gm/dl (6.0-8.3) 02/15/23 17:09 Albumin 3.0 gm/dl (3.4-5.0) L 02/15/23 17:09 Procalcitonin 0.14 ng/ml (0-0.5) 02/15/23 17:09 TSH 1.113 uIu/ml (0.300-4.500) 02/15/23 17:09 Urine Color Yellow 02/15/23 Unknown Urine Appearance Cloudy (Clear) A 02/15/23 Unknown Urine pH 5.0 (4.5-7.5) 02/15/23 Unknown Ur Specific [place] 1.013 (1.000-1.030) 02/15/23 Unknown Urine Protein Trace (Negative) H 02/15/23 Unknown Urine Glucose (UA) Negative (Negative) 02/15/23 Unknown Urine Ketones Negative (Negative) 02/15/23 Unknown Urine Blood 2+ (Negative) H 02/15/23 Unknown Urine Nitrite Negative (Negative) 02/15/23 Unknown Urine Bilirubin Negative (Negative) 02/15/23 Unknown Urine Urobilinogen Negative (Negative) 02/15/23 Unknown Ur Leukocyte Esterase 1+ (Negative) H 02/15/23 Unknown Urine WBC (Auto) 10-30 /hpf (0-5) H 02/15/23 Unknown Urine RBC (Auto) 5-10 /hpf (0-4) H 02/15/23 Unknown U Hyaline Cast (Auto) 5-10 /lpf (0-5) H 02/15/23 Unknown U Epithel Cells (Auto) 20-30 /lpf (0-5) H 02/15/23 Unknown Urine Bacteria (Auto) Negative (Negative) 02/15/23 Unknown Urine Yeast Present (None Prsent) A 02/15/23 Unknown SARS-CoV-2 (PCR) NEGATIVE (Negative) 02/15/23 17:57 Influenza Type A (PCR) Negative (Neg) 02/15/23 17:57 Influenza Type B (PCR) Negative (Neg) 02/15/23 17:57 RSV (RT-PCR) Negative (Neg) 02/15/23 17:57 Impressions Abdomen/Pelvis CT 02/15/23 16:48 CT abd pelvis wo con CLINICAL HISTORY: hypotension TECHNIQUE: Helical axial images of the abdomen and pelvis were obtained. Automated dose lowering techniques and/or adjustment according to patient size were utilized for this exam. This exam was performed without intravenous contrast. COMPARISON: None available at the time of this dictation. FINDINGS: Lower chest: No acute abnormality. Liver: Unremarkable. No focal lesions are seen. Gallbladder and biliary tree: Layering radiodense material is seen in the dependent portion of the likely representing sludge. No intra- or extrahepatic biliary ductal dilation. Pancreas: Unremarkable, no focal lesions. Spleen: Unremarkable. Adrenals: Unremarkable. Kidneys and ureters: Perinephric stranding is noted bilaterally. Bladder: Lina[place] catheter is seen. Reproductive organs: Unremarkable. Bowel: Diverticulosis is seen without evidence of diverticulitis. Moderate hiatal hernia is seen. Lymph nodes Retroperitoneal: Unremarkable. Pelvic: Unremarkable. Mesenteric: Unremarkable. Peritoneum: Normal. Vessels: Atherosclerotic calcifications are seen. Abdominal wall: A fat-containing umbilical hernia is seen. Left inguinal hernia is also noted. Bones: Degenerative changes in the visualized spine. IMPRESSION: No acute abnormalities are seen. ACT 112: Negative or not required by law. Electronically signed by: Juan Pennington M.D. 02/15/2023 7:28 PM Chest X-Ray 02/15/23 16:48 XR chest 1V portable HISTORY: Sepsis COMPARISON: Chest 01/15/2023. FINDINGS: There are low lung volumes. No pneumothorax. Slightly rotated study. No evidence for pulmonary edema. The heart remains mildly enlarged. A hiatal hernia is again noted. No new focal lung consolidations to suggest a pneumonia. IMPRESSION: No significant change compared to the prior study. No acute process. A large hiatus hernia is again noted. ACT 112: Negative or not required by law. Electronically signed by: Stewart Salinas M.D. 02/15/2023 5:[address] 02/15/23 16:48 CT head/brain wo con CLINICAL HISTORY: AMS Technique: Contiguous axial CT images of the head were acquired from the base of the skull to the vertex without intravenous contrast administration. Images were viewed in brain, subdural and bone windows. Automated dose lowering techniques and/or adjustment according to patient size were utilized for this exam. Comparison: Comparison is made to CT head 01/15/2023 Findings: Areas of decreased attenuation are present in the periventricular and subcortical white matter bilaterally consistent with small vessel ischemic disease. Generalized cerebral atrophy with commensurate enlargement of the ventricles, sulci, and cisterns is also present. There is no acute intracranial hemorrhage or evidence of acute territorial infarction. No shift of the midline structures, mass effect, or extra-axial abnormalities are shown. Atherosclerotic calcifications are present in the intracranial segments of the internal carotid arteries. Imaged portions of the paranasal sinuses and mastoid air cells are clear. The orbits appear normal. Soft tissue swelling is seen in the right anterior frontal region. Impression: No acute intracranial hemorrhage, no evidence of acute territorial infarction or other acute intracranial disease process. ACT 112: Negative or not required by law. Electronically signed by: Juan Pennington M.D. 02/15/2023 7:[address] 02/15/23 17:24 CT chest diagnostic wo con CLINICAL HISTORY: clavicle dislocation TECHNIQUE: Multidetector row helical CT of the chest was performed. Coronal and sagittal reformations were obtained. Automated dose lowering techniques and/or adjustment according to patient size were utilized for this exam. CT DOSE: 4455.41 mGy.cm Comparison: Comparison is made to CT chest 05/27/2021 FINDINGS: Lungs and pleura: Diffuse centrilobular emphysema is seen most prominent in the upper lobes. Bronchial wall thickening and atelectasis are seen. Heart and pericardium: Heart size is normal. No pericardial effusion. Vessels: Moderate atherosclerotic changes in the aorta and coronary arteries. Mediastinum and mary: Unremarkable. Chest wall and lower neck: Unremarkable. Abdomen: Moderate hiatal hernia is seen. Please see CT abdomen for findings below the diaphragm. Bones: The left clavicle/manubrial joint appears somewhat anteromedially displaced compared to the right. IMPRESSION: No acute fracture or thoracic abnormality. There may be mild subluxation of the left acromioclavicular joint. ACT 112: Negative or not required by law. Electronically signed by: Juan Pennington M.D. 02/15/2023 7:22 PM Diagnostic Findings EKG as per my interpretation :Rate 140, atrial flutter, normal axis (1) Hypotension Hypotension type: unspecified hypotension type Qualified Code(s): I95.9 - Hypotension, unspecified
[2023-02-15] MEDS ORDERED: CARBOHYDRATES FOR HYPOGLYCEMIA PO PRN (22:52)
[2023-02-15] MEDS ORDERED: GLUCOSE 10 TAB/TUBE PO PRN (22:52)
[2023-02-15] MEDS ORDERED: GLUCOSE 40% GEL 15 GM TUBE PO PRN (22:52)
[2023-02-15] MEDS ORDERED: ACETAMINOPHEN 325 MG TAB PO PRN (22:52)
[2023-02-15] MEDS ORDERED: DEXTROSE 50% 50 ML SYRINGE IV PRN (22:52)
[2023-02-15] MEDS ORDERED: GLUCAGON FOR INJ 1 MG VIAL SQ PRN (22:52)
[2023-02-15] MEDS ORDERED: DOXYCYCLINE HYCLATE 100 MG in DEXTROSE 5% 100 ML IV STA (22:59)
--- NOTE | 2023-02-15 23:19 | Critical Care Consultation ---
Date of Consultation February 15, 2023 Assessment & Plan (1) Hypotension: Reason Critically Ill: 82-year-old male presents with hypotension and currently requiring vasopressor support Neuro - CAM ICU: Negative Cardiac - Hypotensionunclear etiology at this time the patient appears to be dehydrated on exam. He has had 3 L crystalloid bolus so far and remains hypotensive on Levophed drip which we are currently weaning. -History of CHF/CAD, no previous echo known. Follow-up TTE -History of CABGcontinue ASA, Plavix -Hold antihypertensives -Holding Bumex -See ID treatment for potential sepsis -Random cortisol 11, given 100 mg hydrocortisone x1 dose -Maintain maps greater than 65, wean Levophed as tolerated Respiratory - COPDcurrently maintaining oxygen saturation on 4 L without respiratory distress, ABG without hypercapnia -DuoNeb as needed -Monitor for now GI - Advance diet as tolerated RENAL/LYTES - Acute renal failurepatient with creatinine of 4.26 on admission with previous baseline is 0.87 -Expect this is likely prerenal in the setting of hypotension and severe dehydration -No significant acidosis or electrolyte abnormalities -Continue with IV fluid resuscitation -Maintain MAP greater than 65 -Holding lisinopril and Bumex -Avoid nephrotoxins and renally adjust medications -Continue to monitor with routine BMPs - Foleystrict I's and O's ENDO - DM type IIcurrently euglycemic, continue with sliding scale. 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 No obvious purulence or drainage noted -Continue prophylactic doxycycline -Urinalysis is concerning for UTI. Urine culture pending, continue ceftriaxone -Blood cultures pending we will follow LINES/IV ACCESS - Left subclavian central line DVT PROPHYLAXIS - SCDs, subcu heparin I have personally spent 50 minutes of critical care time in the direct management of this patient. This is a life/limb threatening event. This includes time spent evaluating patient, direct bedside care, chart review, placing orders, interpretation of diagnostic studies, discussion with consultants, patient, and family members, as well as other required patient management activities. This time is exclusive of all separately billable procedures, and teaching time and separate from and in addition to any other critical care service time. Thank you for allowing us to participate in the care of this patient. Please refer to my attending physician's documentation for any further recommendations. (2) Acute renal failure: (3) Acute dehydration: (4) Urinary tract infection: (5) Vomiting: (6) Failed flap: (7) CHF (congestive heart failure): (8) COPD (chronic obstructive pulmonary disease): (9) CAD (coronary artery disease): History of Present Illness Attending Physician: London Sanchez MD History of Present Illness Patient is a 82-year-old male prisoner with past medical history COPD, CHF, DM type II, renal insufficiency, and recent hospitalization following a Mohs procedure in which he developed infected skin graft colonized with MRSA in December. Patient presented to the emergency department earlier this evening with complaints of generalized weakness, shortness of breath, and cough. Per report patient had been in the [facility] for the past 18 hours and was receiving IV fluid. Patient does report that he had diarrhea for the past 3 days. In the emergency department he was found to be hypotensive and he was giving multiple crystalloid boluses. Patient remained hypotensive and central line was inserted in the ED and he was placed on vasopressors. Lab work revealed normal lactate, normal procalcitonin, mild leukocytosis of 12,000, and significant DONNIE with mild acidosis but no electrolyte abnormalities. Patient is now transferred to the ICU for further management at this time. Allergies Allergy/AdvReac Type Severity Reaction Status Date / Time Sulfa (Sulfonamide Allergy Unknown ON SCI Verified 02/15/23 19:23 Antibiotics) [facility] MED LIST Home Medications Medication Instructions Recorded Confirmed Type albuterol sulfate 90 mcg/actuation 2 puff inhalation QID PRN 02/15/23 02/15/23 History aerosol inhaler Shortness Of Breath aspirin 81 mg tablet,delayed 81 mg PO DAILY 02/15/23 02/15/23 History release bumetanide 1 mg tablet 1 mg PO DAILY 02/15/23 02/15/23 History ciclesonide 160 mcg/actuation 2 puff inhalation BID PRN 02/15/23 02/15/23 History aerosol inhaler (Alvesco) Shortness Of Breath Or Wheezing clopidogrel 75 mg tablet (Plavix) 75 mg PO DAILY 02/15/23 02/15/23 History cranberry extract 250 mg tablet 250 mg PO DAILY 02/15/23 02/15/23 History doxazosin 8 mg tablet 8 mg PO HS 02/15/23 02/15/23 History doxycycline monohydrate 100 mg 100 mg PO BID 02/15/23 02/15/23 History capsule fluoxetine 20 mg tablet 20 mg PO DAILY 02/15/23 02/15/23 History insulin human U-100 NPH-regulr 12 unit subcut BID 02/15/23 02/15/23 History 70-30 mix 100 unit/mL subcutaneous susp (Novolin 70/30 U-100 Insulin) insulin regular human 100 unit/mL 1 sliding scale dose subcut 02/15/23 02/15/23 History injection solution (Novolin R USEASDIRECTD Regular U-100 Insulin) isosorbide mononitrate 30 mg 30 mg PO DAILY 02/15/23 02/15/23 History tablet,extended release 24 hr latanoprost 0.005 % eye drops 1 drp ophthalmic (eye) PM 02/15/23 02/15/23 History levofloxacin 750 mg tablet 750 mg PO DAILY 02/15/23 02/15/23 History lisinopril 40 mg tablet 40 mg PO DAILY 02/15/23 02/15/23 History menthol 0.44 %-zinc oxide 20.6 % 1 applic topical QID PRN flare ups 02/15/23 02/15/23 History topical ointment (Calmoseptine) metoprolol tartrate 50 mg tablet 50 mg PO BID 02/15/23 02/15/23 History ondansetron HCl 4 mg tablet 4 mg PO TID PRN Nausea 02/15/23 02/15/23 History rosuvastatin 10 mg tablet 10 mg PO DAILY 02/15/23 02/15/23 History Patient History Medical History CHF (congestive heart failure) COPD (chronic obstructive pulmonary disease) Diabetes High blood pressure Surgical History H/O inguinal hernia repair History of appendectomy Hx of CABG No pertinent past surgical history Family History Father Coronary heart disease Diabetes Social History Smoking Status: Former smoker Tobacco Type: Cigarettes Hx Alcohol Use: No Hx Substance Use: No Preferred Language: [place] Communication Ability: Unable Leather Whitener Required: No Beliefs That Will Affect Care: None Current Living Situation: Other Current Living Situation Comment: [facility] Other Information That Helps Us Care for You: No Feels Safe at Home: Yes Assistive Devices: None Review of Systems Review of Systems: Patient reports some mild nonproductive cough, shortness of breath, lightheadedness, and diarrhea for the past 3 days. He currently denies headache, changes in vision, sore throat or congestion, pain or drainage from surgical site, chest pain or palpitations, abdominal pain, nausea or vomiting, swelling in hands or feet. He does report very little urine output for the past few days. Results & Data Results & Data Vital Signs (Past 12 Hours) Vital Signs Temp Pulse Resp BP Pulse Ox O2 Del Method O2 Flow Rate 02/15/23 22:20 65 13 140/67 99 Oxymask 2 02/15/23 22:15 66 13 133/66 97 Oxymask 2 02/15/23 22:10 68 12 134/68 97 Oxymask 2 02/15/23 22:05 65 12 117/82 96 Oxymask 2 02/15/23 22:00 66 12 98/69 L 96 Oxymask 2 02/15/23 21:55 67 12 129/65 97 Oxymask 2 02/15/23 21:50 67 14 128/63 97 Oxymask 2 02/15/23 21:45 64 12 107/74 96 Oxymask 2 02/15/23 21:40 64 12 100/64 98 Oxymask 2 02/15/23 21:35 65 16 93/70 L 97 Oxymask 2 02/15/23 21:25 65 16 97/58 L 97 Oxymask 2 02/15/23 21:14 68 15 99/69 L 97 Oxymask 2 02/15/23 21:11 67 14 69/57 L 95 Oxymask 2 02/15/23 21:10 66 14 93/50 L 95 Oxymask 2 02/15/23 21:05 68 14 114/57 L 97 Oxymask 2 02/15/23 21:00 69 16 123/56 L 94 Oxymask 2 02/15/23 20:55 68 12 101/81 97 Oxymask 2 02/15/23 20:58 67 02/15/23 20:50 66 12 105/67 96 Oxymask 2 02/15/23 20:45 67 14 108/61 97 Oxymask 2 02/15/23 20:40 66 15 116/65 97 Oxymask 2 02/15/23 20:35 66 16 99/62 L 97 Oxymask 2 02/15/23 20:31 64 14 128/60 96 Oxymask 2 02/15/23 20:25 64 13 106/63 96 Oxymask 2 02/15/23 20:20 65 16 123/60 97 Oxymask 2 02/15/23 20:15 66 16 117/68 94 Oxymask 2 02/15/23 20:09 69 14 126/67 94 02/15/23 20:05 65 13 126/74 96 02/15/23 20:00 65 15 112/75 96 02/15/23 19:55 66 15 150/71 H 98 02/15/23 19:50 67 10 L 139/79 96 02/15/23 19:45 65 12 151/71 H 96 02/15/23 19:40 65 16 135/69 98 Oxymask 2 02/15/23 19:36 65 17 132/61 97 Oxymask 2 02/15/23 19:31 67 16 138/69 96 Oxymask 2 02/15/23 19:25 64 12 131/67 97 Oxymask 2 02/15/23 19:20 71 12 128/70 96 Oxymask 2 02/15/23 19:15 65 16 138/79 97 Oxymask 2 02/15/23 19:10 63 13 146/61 H 99 Oxymask 2 02/15/23 19:05 63 12 144/64 H 95 Oxymask 2 02/15/23 19:00 62 13 144/81 H Oxymask 2 02/15/23 18:56 65 16 131/71 Oxymask 2 02/15/23 18:50 60 16 94 Oxymask 2 02/15/23 18:50 133/71 02/15/23 18:46 63 22 95 Oxymask 2 02/15/23 18:46 139/83 02/15/23 18:45 92 02/15/23 18:21 59 L 12 97 Oxymask 2 02/15/23 18:21 125/61 02/15/23 18:20 58 L 12 95 Oxymask 2 02/15/23 18:16 57 L 12 95 Oxymask 2 02/15/23 18:16 104/67 02/15/23 18:15 55 L 13 92 Oxymask 2 02/15/23 18:10 58 L 13 86 L Room Air 02/15/23 18:10 70/43 L 88 L Room Air 02/15/23 18:08 57 L 17 92 Room Air 02/15/23 18:00 60 12 02/15/23 18:00 83/50 L 02/15/23 17:55 59 L 15 02/15/23 17:55 81/46 L 02/15/23 17:50 60 12 02/15/23 17:50 86/42 L 02/15/23 17:47 57 L 13 02/15/23 17:47 60/45 L 02/15/23 17:45 55 L 14 02/15/23 17:41 56 L 13 02/15/23 17:41 97/51 L 02/15/23 17:40 56 L 12 92 Room Air 02/15/23 17:37 57 L 13 02/15/23 17:37 120/60 02/15/23 17:35 58 L 13 02/15/23 17:31 106/68 02/15/23 17:31 57 L 17 93 Room Air 02/15/23 17:30 57 L 17 02/15/23 17:25 54 L 12 02/15/23 17:25 93/49 L 02/15/23 17:20 54 L 16 02/15/23 17:20 86/52 L 02/15/23 17:15 53 L 12 02/15/23 17:13 53 L 13 94 Room Air 02/15/23 17:13 84/44 L 02/15/23 17:10 54 L 13 95 Room Air 02/15/23 17:05 55 L 14 02/15/23 17:00 53 L 14 02/15/23 16:57 56 L 12 02/15/23 16:57 113/50 L 02/15/23 16:48 94 Room Air 02/15/23 16:50 36.8 C 56 L 24 120/57 L 95 Room Air 02/15/23 16:57 56 L Coding Level of Care Code 56414 IN/OBS CONSULT LVL 4,60M Diagnoses Hypotension I95.9 Hypotension type: unspecified hypotension type Acute renal failure N17.9 Acute renal failure type: unspecified Acute dehydration E86.0 Urinary tract infection N39.0 Hematuria presence: without hematuria Urinary tract infection type: site unspecified Vomiting R11.10 Failed flap T86.821 CHF (congestive heart failure) I50.9 COPD (chronic obstructive pulmonary disease) J44.9 CAD (coronary artery disease) I25.10 (1) Hypotension Hypotension type: unspecified hypotension type Qualified Code(s): I95.9 - Hypotension, unspecified (2) Acute renal failure Acute renal failure type: unspecified Qualified Code(s): N17.9 - Acute kidney failure, unspecified (4) Urinary tract infection Hematuria presence: without hematuria Urinary tract infection type: site unspecified Qualified Code(s): N39.0 - Urinary tract infection, site not specified
[2023-02-15 23:37] LABS: Base Excess ABG -5.8 mEq/L (-9-1.8); HCO3 ABG 20 mmol/L (19-24); Oxygen Saturation ABG 93.1 % (90-95); PCO2 ABG 40 mmHg (35-46); PO2 ABG 67 mmHg (80-95); pH ABG 7.31 (7.35-7.45)
[2023-02-15 23:41] LABS: Allen Test Pos (Pos)
[2023-02-15] MEDS: HEPARIN SOD 5,000 UNIT/0.5 ML VIAL SQ SCH (23:42)
[2023-02-15 23:59] LABS: BUN Creatinine Ratio 17.6 (10-20); Calcium 7.6 mg/dl (8.6-10.3); Creatinine Clr Calc Pharmacy 20.7 ml/min; Est GFR (African American) 19.5 ml/min; Est GFR (Non-African American) 16.8 ml/min; Potassium 4.1 mmol/L (3.5-5.1)
[2023-02-16] MEDS ORDERED: HYDROCORTISONE SOD 100 MG in SYRINGE 0 ML IV ONE (00:46)
[2023-02-16] MEDS: INSULIN ASPART PER UNIT CHARGE SC SCH ×5 (01:04→20:55)
[2023-02-16] MEDS: cefTRIAXone SODIUM 2,000 MG in DEXTROSE 5% 50 ML IV SCH (01:06)
[2023-02-16] MEDS: PLASMA-LYTE A 1,000 ML IV SCH ×3 (02:02→17:29)
[2023-02-16] MEDS ORDERED: ALBUT/IPRATROP 3MG/0.5MG NEB 3 ML VIAL NEB PRN (03:43)
[2023-02-16] MEDS: HEPARIN SOD 5,000 UNIT/0.5 ML VIAL SQ SCH ×3 (05:59→20:59)
[2023-02-16 06:19] LABS: Basophils # (auto) 0.02 K/uL (0-0.2); Basophils % (auto) 0.2 %; Eosinophils # (auto) 0.03 K/uL (0-0.50); Eosinophils % (auto) 0.3 %; Hematocrit (blood only) 37.7 % (42.0-52.0); Hemoglobin 12.4 g/dl (14.0-18.0); Immature Granulocytes # (auto) 0.04 K/uL (0.01-0.20); Immature Granulocytes % (auto) 0.3 %; Lymphocytes # (auto) 0.72 K/uL (1.2-3.4); Lymphocytes % (auto) 6.1 %; Mean Corpuscular Hemoglobin 28.5 pg (25.0-34.0); Mean Corpuscular Hgb Conc 32.9 g/dL (32.0-36.0); Mean Corpuscular Volume 86.7 fL (80.0-100.0); Mean Platelet Volume 11.6 fL (9.4-12.4); Monocytes # (auto) 0.53 K/uL (0.11-0.59); Monocytes % (auto) 4.5 %; Neutrophils # (auto) 10.49 K/uL (1.40-6.50); Neutrophils % (auto) 88.6 %; Platelet Count 183 K/uL (130-400); RDW Coefficient of Variation 13.7 % (11.5-14.5); RDW Standard Deviation 43.6 fL (36.4-46.3); Red Blood Count 4.35 M/uL (4.70-6.10); White Blood Count 11.83 K/ul (4.8-10.8)
[2023-02-16 06:40] LABS: BUN Creatinine Ratio 19.8 (10-20); Calcium 7.9 mg/dl (8.6-10.3); Creatinine Clr Calc Pharmacy 25.5 ml/min; Est GFR (African American) 25.5 ml/min; Magnesium 1.8 mg/dl (1.7-2.4); Phosphorus 3.5 mg/dl (2.5-4.9); Potassium 4.4 mmol/L (3.5-5.1)
[2023-02-16] MEDS: MAGNESIUM SULFATE / D5W 1 GM/100 ML BAG IV SCH ×2 (07:07→09:12)
--- NOTE | 2023-02-16 08:04 | Hospitalist Progress Note ---
Date of Service February 16, 2023 Assessment & Plan (1) Hypotension: Plan: Secondary to hypovolemia secondary to diarrheal illness -Blood pressure improved after hydration, support with Levophed -Transferred out of ICU, currently in PCU -Metoprolol resumed, blood pressure stable so far -C. difficile negative Rest of stool PCR panel: Pending Had 2 episodes of diarrhea today -Continue IV fluids Monitor blood pressure closely Acute kidney failure with tubular necrosis -Likely secondary to volume depletion from diarrhea with concomitant diuretic use, lisinopril -Creatinine improving from 4.2, now 2.5 -Continue IV fluids -Follow-up urine cultures, on empiric ceftriaxone IV day #1 BCC, nose status post surgery/failed flap reconstruction (December 2022) and subsequent takedown (01/2023) Status post Mohs surgery -Follows with spinning supervisor at [facility] Dr. Marilyn Koroma -Maintain dressing over scalp and nasal area-sutured in place secondary to patient manipulating the dressings -Apply Vaseline twice a day to dressings in place hx CHF as per records -- Patient on the dry side hx CAD status post stent COPD-not in exacerbation hyperlipidemia, on statin Rx DM2 insulin requiring, well-controlled as of hemoglobin A1c of 7 last month chronic anemia, hemoglobin at baseline history of MRSA past tobacco abuse DVT prophylaxis. Heparin subcu Full code Disposition [facility] to correctional facility when medically stable Admission and Anticipated Discharge Date Admission Date: February 15, 2023 Subjective Follow-up for hypotension, acute renal failure, etc. Seen resting in bed, alert, oriented x3, answers all questions appropriately Comfortable, not in distress States he feels fine overall Denies nausea, vomiting, abdominal pain, fevers or chills, chest pain, shortness of breath Denies pain over the dressing sites in the scalp and face No palpitations, dizziness No other symptoms Review of Systems Review of Systems: all noted and negative except for above Physical Exam Physical Exam: General- oriented x 3, not in distress, speaks in sentences with no effort or accessory muscle use Head-dressing over wound in place, no bleeding or discharge no signs of infection surrounding the dressing Nose-dressing over wound in place, no bleeding or discharge, no signs of infection Eyes- anicteric Neck- no JVD Lungs- clear breath sounds bilaterally, no rales/wheezes Heart- normal rate, regular rhythm; no murmurs Abdomen- normal bowel sounds, nondistended, soft, nontender Extremities- no pretibial edema, no calf tenderness Neuro- alert, oriented x 3; no gross focal neurologic deficits Skin- warm & dry Results & Data Results & Data Vital Signs (Past 12 Hours) Vital Signs Temp Pulse Resp BP Pulse Ox O2 Del Method O2 Flow Rate 02/16/23 04:00 37.1 C 02/16/23 06:01 69 16 153/78 H 92 Room Air 02/16/23 05:01 57 L 13 151/74 H 91 Room Air 02/16/23 04:00 56 L 12 148/77 H 90 Room Air 02/16/23 03:01 58 L 24 153/71 H 91 02/16/23 02:51 57 L 20 137/60 92 02/16/23 02:01 56 L 14 124/83 90 02/16/23 01:35 57 L 12 126/60 94 Room Air 02/16/23 01:16 62 14 143/59 H 94 Room Air 02/16/23 01:02 61 18 101/58 L 92 Room Air 02/16/23 00:45 60 12 119/76 90 02/16/23 00:36 60 12 110/59 L 91 02/16/23 00:15 60 15 131/58 L 93 02/15/23 23:48 66 13 131/65 90 02/15/23 23:32 66 15 116/41 L 89 L 02/15/23 23:16 66 18 78/54 L 91 02/15/23 23:01 66 12 103/67 94 02/15/23 22:52 60 02/16/23 00:00 Room Air 02/15/23 22:20 65 13 140/67 99 Oxymask 2 02/15/23 22:15 66 13 133/66 97 Oxymask 2 02/15/23 22:10 68 12 134/68 97 Oxymask 2 02/15/23 22:05 65 12 117/82 96 Oxymask 2 02/15/23 22:00 66 12 98/69 L 96 Oxymask 2 02/15/23 21:55 67 12 129/65 97 Oxymask 2 02/15/23 21:50 67 14 128/63 97 Oxymask 2 02/15/23 21:45 64 12 107/74 96 Oxymask 2 02/15/23 21:40 64 12 100/64 98 Oxymask 2 02/15/23 21:35 65 16 93/70 L 97 Oxymask 2 02/15/23 21:25 65 16 97/58 L 97 Oxymask 2 02/15/23 21:14 68 15 99/69 L 97 Oxymask 2 02/15/23 21:11 67 14 69/57 L 95 Oxymask 2 02/15/23 21:10 66 14 93/50 L 95 Oxymask 2 02/15/23 21:05 68 14 114/57 L 97 Oxymask 2 02/15/23 21:00 69 16 123/56 L 94 Oxymask 2 02/15/23 20:55 68 12 101/81 97 Oxymask 2 02/15/23 20:58 67 02/15/23 20:50 66 12 105/67 96 Oxymask 2 02/15/23 20:45 67 14 108/61 97 Oxymask 2 02/15/23 20:40 66 15 116/65 97 Oxymask 2 02/15/23 20:35 66 16 99/62 L 97 Oxymask 2 02/15/23 20:31 64 14 128/60 96 Oxymask 2 02/15/23 20:25 64 13 106/63 96 Oxymask 2 02/15/23 20:20 65 16 123/60 97 Oxymask 2 02/15/23 20:15 66 16 117/68 94 Oxymask 2 02/15/23 20:09 69 14 126/67 94 02/15/23 20:05 65 13 126/74 96 all noted and reviewed including below (1) Hypotension Hypotension type: unspecified hypotension type Qualified Code(s): I95.9 - Hypotension, unspecified
--- NOTE | 2023-02-16 08:54 | Critical Care Progress Note ---
Date of Service February 16, 2023 Assessment & Plan (1) Acute renal failure: (2) Acute dehydration: (3) Vomiting: (4) COPD (chronic obstructive pulmonary disease): Plan Reason Critically Ill: 82-year-old male presenting with profound hypotension requiring vasopressor support. NEURO - * CAM ICU: NEGATIVE CARDIAC/VASCULAR - * Hypotension: * Has resolved with IV fluid resuscitation. Has not required vasopressors for greater than 12 hours. * Continuous IV fluids for now. * Patient is asked been hypertensive. We will restart his metoprolol. Hold off on reinstitution of lisinopril in the setting of acute renal failure. * Monitor on telemetry. RESPIRATORY - * Apparent history of COPD: * Continue home inhaler therapy. * Patient not bronchospastic on exam today. GI/NUTRITION - * Progress diet as tolerated. RENAL/LYTES - * Acute renal failure: * Likely in the setting of profound dehydration. * Making significant amounts of urine at this time status post fluid resuscitation. * Continue with ongoing IV fluids for now. * IVF: Plasma-Lyte at 125mL/h. - * [place] in place - Strict I&Os. ENDO - * No h/o DM or thyroid Dz * BSGs per unit protocol. ISS --> gtt per unit policy. HEME - * Stable H&H ID - * Continue treatment for skin MRSA infection. LINES/IV ACCESS - * PIVs x2 * [place] DVT PROPHYLAXIS - * Heparin * SCDs Patient is stable for downgrade at this point. Communicated this with primary service. Thank you for allowing us to participate in the care of this patient. Please refer to my attending physician's documentation for any further recommendations. Admission and Anticipated Discharge Date Admission Date: February 15, 2023 Subjective Patient seen and evaluated bedside today. He is awake, alert, and oriented at this time. He reports feeling improved today. He offers no specific complaints. Review of Systems Review of Systems: A complete 6 point review of systems was reviewed with the patient with pertinent positives and negatives as per history of present illness. All else were negative. Physical Exam Physical Exam: VITAL SIGNS - Vital signs and nursing notes were reviewed. GENERAL - 82-year-old male appearing his stated age who is in no acute distress. Communicates well with provider and answers questions appropriately. SKIN - Dressings to the face clean, dry, and intact. MOUTH/OROPHARYNX - Without perioral cyanosis. Buccal mucosa pink and dry. NECK - Neck with FROM. LUNGS - Normal vesicular breath sounds CTA B/L. No wheezes, rales, or rhonchi appreciated. CARDIAC - RRR with S1/S2. No murmur, rubs, or gallops appreciated. ABDOMEN - Abdominal contour obese without pulsations or visible masses. BS normoactive all four quadrants. No tenderness, palpable masses, hepatosplenomegaly, or ascites noted. EXTREMITIES - No clubbing or peripheral cyanosis. No pretibial edema present. +3/5 radial and dorsalis pedis pulses palpated throughout. NEUROLOGIC - Cranial nerves II through XII grossly intact. PSYCH - A&Ox3 and cooperates fully with examiner. Pt is very pleasant and interacts well with examiner. Results & Data Results & Data Vital Signs (Past 12 Hours) Vital Signs Temp Pulse Resp BP Pulse Ox O2 Del Method O2 Flow Rate 02/16/23 08:00 69 12 92 Room Air 02/16/23 07:01 69 18 91 02/16/23 07:00 70 15 139/93 90 Room Air 02/16/23 08:00 68 02/16/23 04:00 37.1 C 02/16/23 06:01 69 16 153/78 H 92 Room Air 02/16/23 05:01 57 L 13 151/74 H 91 Room Air 02/16/23 04:00 56 L 12 148/77 H 90 Room Air 02/16/23 03:01 58 L 24 153/71 H 91 02/16/23 02:51 57 L 20 137/60 92 02/16/23 02:01 56 L 14 124/83 90 02/16/23 01:35 57 L 12 126/60 94 Room Air 02/16/23 01:16 62 14 143/59 H 94 Room Air 02/16/23 01:02 61 18 101/58 L 92 Room Air 02/16/23 00:45 60 12 119/76 90 02/16/23 00:36 60 12 110/59 L 91 02/16/23 00:15 60 15 131/58 L 93 02/15/23 23:48 66 13 131/65 90 02/15/23 23:32 66 15 116/41 L 89 L 02/15/23 23:16 66 18 78/54 L 91 02/15/23 23:01 66 12 103/67 94 02/15/23 22:52 60 02/16/23 00:00 Room Air 02/15/23 22:20 65 13 140/67 99 Oxymask 2 02/15/23 22:15 66 13 133/66 97 Oxymask 2 02/15/23 22:10 68 12 134/68 97 Oxymask 2 02/15/23 22:05 65 12 117/82 96 Oxymask 2 02/15/23 22:00 66 12 98/69 L 96 Oxymask 2 02/15/23 21:55 67 12 129/65 97 Oxymask 2 02/15/23 21:50 67 14 128/63 97 Oxymask 2 02/15/23 21:45 64 12 107/74 96 Oxymask 2 02/15/23 21:40 64 12 100/64 98 Oxymask 2 02/15/23 21:35 65 16 93/70 L 97 Oxymask 2 02/15/23 21:25 65 16 97/58 L 97 Oxymask 2 02/15/23 21:14 68 15 99/69 L 97 Oxymask 2 02/15/23 21:11 67 14 69/57 L 95 Oxymask 2 02/15/23 21:10 66 14 93/50 L 95 Oxymask 2 02/15/23 21:05 68 14 114/57 L 97 Oxymask 2 02/15/23 21:00 69 16 123/56 L 94 Oxymask 2 02/15/23 20:55 68 12 101/81 97 Oxymask 2 02/15/23 20:58 67 Coding Level of Care Code 80333 SUB INP/OBS CARE 3/50MIN Diagnoses Acute renal failure N17.9 Acute renal failure type: unspecified Acute dehydration E86.0 Vomiting R11.10 COPD (chronic obstructive pulmonary disease) J44.9 Time Spent (min) 35 (1) Acute renal failure Acute renal failure type: unspecified Qualified Code(s): N17.9 - Acute kidney failure, unspecified
[2023-02-16] MEDS: DOXYCYCLINE HYCLATE 100 MG CAP PO SCH ×2 (09:12→20:59)
[2023-02-16] MEDS: FLUoxetine HCL 20 MG CAP PO SCH (09:12)
[2023-02-16] MEDS: FLUTICASONE FUROATE 200MCG 14 PUFFS/INHALER INH SCH (09:12)
[2023-02-16] MEDS: CLOPIDOGREL BISULFATE 75 MG TAB PO SCH (09:12)
[2023-02-16] MEDS: ASPIRIN 81 MG ECTAB PO SCH (09:12)
--- NOTE | 2023-02-16 12:11 | Cardiology Consultation ---
Date of Consultation February 16, 2023 Assessment & Plan (1) Abnormal EKG: (2) Acute renal failure: (3) CAD (coronary artery disease): Plan 82-year-old male with chronic ischemic heart disease on guideline directed medical therapies presented with acute illness consistent with possible sepsis diarrhea and acute renal failure. Initial EKG artifactually abnormal secondary to resting coarse tremor and acute illness with poor baseline. No evidence of atrial flutter (referral diagnosis) on EKG or telemetry. Hemodynamically improved after fluid resuscitation. LV systolic function normal to hyperdynamic Would resume beta-mynor, treat underlying processes Contact with any additional questions History of Present Illness Reason for Consultation: Atrial flutter diagnosis on initial EKG Requesting Physician: Dr. Isaac Attending Physician: London Sanchez MD History of Present Illness Patient is an 82-year-old [facility] inmate referred for admission with signs and symptoms of acute poss sepsis, acute renal insufficiency, and dehydration. Information gained from discussion with patient and review of past and current records Underlying medical issues of cardiac concern include 1. 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 Hypertension 3. Chronic obstructive lung disease 4. Hyperlipidemia Patient presents now with recent history of poorly healing Mohs surgery graft, recent antibiotic therapies, diarrhea presented with hypotension and acute renal failure. Initial EKG, poor quality tracing demonstrated baseline artifact likely secondary to patient's resting tremor. Initially read as atrial flutter, not present on EKG or on telemetry Patient referred for further evaluation Currently denies chest pains, shortness of breath recent angina. Usually compliant with medications. Allergies Allergy/AdvReac Type Severity Reaction Status Date / Time Sulfa (Sulfonamide Allergy Unknown ON [facility] Verified 02/15/23 19:23 Antibiotics) [facility] MED LIST Home Medications Medication Instructions Recorded Confirmed Type albuterol sulfate 90 mcg/actuation 2 puff inhalation QID PRN 02/15/23 02/15/23 History aerosol inhaler Shortness Of Breath aspirin 81 mg tablet,delayed 81 mg PO DAILY 02/15/23 02/15/23 History release bumetanide 1 mg tablet 1 mg PO DAILY 02/15/23 02/15/23 History ciclesonide 160 mcg/actuation 2 puff inhalation BID PRN 02/15/23 02/15/23 History aerosol inhaler (Alvesco) Shortness Of Breath Or Wheezing clopidogrel 75 mg tablet (Plavix) 75 mg PO DAILY 02/15/23 02/15/23 History cranberry extract 250 mg tablet 250 mg PO DAILY 02/15/23 02/15/23 History doxazosin 8 mg tablet 8 mg PO HS 02/15/23 02/15/23 History doxycycline monohydrate 100 mg 100 mg PO BID 02/15/23 02/15/23 History capsule fluoxetine 20 mg tablet 20 mg PO DAILY 02/15/23 02/15/23 History insulin human U-100 NPH-regulr 12 unit subcut BID 02/15/23 02/15/23 History 70-30 mix 100 unit/mL subcutaneous susp (Novolin 70/30 U-100 Insulin) insulin regular human 100 unit/mL 1 sliding scale dose subcut 02/15/23 02/15/23 History injection solution (Novolin R USEASDIRECTD Regular U-100 Insulin) isosorbide mononitrate 30 mg 30 mg PO DAILY 02/15/23 02/15/23 History tablet,extended release 24 hr latanoprost 0.005 % eye drops 1 drp ophthalmic (eye) PM 02/15/23 02/15/23 History levofloxacin 750 mg tablet 750 mg PO DAILY 02/15/23 02/15/23 History lisinopril 40 mg tablet 40 mg PO DAILY 02/15/23 02/15/23 History menthol 0.44 %-zinc oxide 20.6 % 1 applic topical QID PRN flare ups 02/15/23 02/15/23 History topical ointment (Calmoseptine) metoprolol tartrate 50 mg tablet 50 mg PO BID 02/15/23 02/15/23 History ondansetron HCl 4 mg tablet 4 mg PO TID PRN Nausea 02/15/23 02/15/23 History rosuvastatin 10 mg tablet 10 mg PO DAILY 02/15/23 02/15/23 History Patient History Medical History CHF (congestive heart failure) COPD (chronic obstructive pulmonary disease) Diabetes High blood pressure Surgical History H/O inguinal hernia repair History of appendectomy No pertinent past surgical history Family History Father Coronary heart disease Diabetes Social History Smoking Status: Former smoker Tobacco Type: Cigarettes Hx Alcohol Use: No Hx Substance Use: No Preferred Language: Haitian Communication Ability: Unable Spray Unit Feeder Required: No Beliefs That Will Affect Care: None Current Living Situation: Other Current Living Situation Comment: [facility] Other Information That Helps Us Care for You: No Feels Safe at Home: Yes Assistive Devices: None Review of Systems Review of Systems: All systems reviewed & are unremarkable except as noted in HPI & below Physical Exam Constitutional: + ill appearing; no acute distress ENMT: Extensive Mohs surgery and graft bandages nose and forehead Neck: trachea midline, no thyromegaly Respiratory: Auscultation: + diminished lung sounds (But clear) Cardiovascular: Rate/Rhythm: regular rate and regular rhythm Heart Sounds: normal S1, normal S2 and + murmur (Grade 1/6 systolic no diastolic) Vessels: no JVD Extremities: + edema (Trace) Gastrointestinal (Abdomen): normal bowel sounds, soft, nontender, no hepatosplenomegaly Neurologic: Motor/Sensory: + tremor (Coarse resting tremor) Results & Data Vital Signs (Past 12 Hours) Vital Signs Temp Pulse Resp BP Pulse Ox O2 Del Method 02/16/23 11:00 74 22 154/79 H 90 Room Air 02/16/23 10:00 82 15 92 Room Air 02/16/23 09:00 78 15 150/86 H 92 Room Air 02/16/23 08:00 69 12 92 Room Air 02/16/23 07:01 69 18 91 02/16/23 07:00 70 15 139/93 90 Room Air 02/16/23 08:00 68 02/16/23 04:00 37.1 C 02/16/23 06:01 69 16 153/78 H 92 Room Air 02/16/23 05:01 57 L 13 151/74 H 91 Room Air 02/16/23 04:00 56 L 12 148/77 H 90 Room Air 02/16/23 03:01 58 L 24 153/71 H 91 02/16/23 02:51 57 L 20 137/60 92 02/16/23 02:01 56 L 14 124/83 90 02/16/23 01:35 57 L 12 126/60 94 Room Air 02/16/23 01:16 62 14 143/59 H 94 Room Air 02/16/23 01:02 61 18 101/58 L 92 Room Air 02/16/23 00:45 60 12 119/76 90 02/16/23 00:36 60 12 110/59 L 91 02/16/23 00:15 60 15 131/58 L 93 Laboratory Results Laboratory Results - last 24 hr 02/15/23 02/15/23 02/15/23 17:09 17:09 17:09 WBC 12.75 H RBC 4.60 L Hgb 13.1 L POC Hgb Hct 40.3 L POC Hct MCV 87.6 MCH 28.5 MCHC 32.5 RDW Std Deviation 44.5 RDW Coeff of Sandrita 14.0 Plt Count 210 MPV 12.0 Immature Gran % (Auto) 0.4 Neut % (Auto) 77.7 Lymph % (Auto) 9.5 [place] % (Auto) 10.8 Eos % (Auto) 1.3 Baso % (Auto) 0.3 Neut # (Auto) 9.91 H Lymph # (Auto) 1.21 [place] # (Auto) 1.38 H Eos # (Auto) 0.16 Baso # (Auto) 0.04 Immature Gran # (Auto) 0.05 PT 13.1 H INR 1.2 H APTT 29.3 PTT Ratio 1.0 ABG pH ABG pCO2 ABG pO2 ABG HCO3 ABG O2 Saturation ABG Base Excess Epifanio Test VBG pH VBG pCO2 VBG pO2 VBG HCO3 VBG O2 Saturation VBG Base Excess Oxygen Given POC Sodium Sodium 135 L POC Potassium Potassium 4.5 POC Chloride Chloride 102 Carbon Dioxide 26 POC Total CO2 Anion Gap 7 POC Anion Gap POC BUN BUN 66 H Creatinine 4.26 H POC Creatinine Est Cr Clr Drug Dosing 15.7 Est GFR ( Amer) 13.9 Est GFR (Non-Af Amer) 12.0 BUN/Creatinine Ratio 15.5 Glucose 80 POC Glucose POC Glucose (other) Lactate Calcium 8.3 L POC Ioniz Calcium Donell Phosphorus Magnesium 1.7 Total Bilirubin 0.5 Direct Bilirubin 0.1 AST 17 ALT 13 Alkaline Phosphatase 86 Ammonia Total Creatine Kinase 88 Troponin I High Sens 6.2 Total Protein 6.2 Albumin 3.0 L Procalcitonin TSH Random Cortisol Urine Color Urine Appearance Urine pH Ur Specific [place] Urine Protein Urine Glucose (UA) Urine Ketones Urine Blood Urine Nitrite Urine Bilirubin Urine Urobilinogen Ur Leukocyte Esterase Urine WBC (Auto) Urine RBC (Auto) U Hyaline Cast (Auto) U Epithel Cells (Auto) Urine Bacteria (Auto) Urine Yeast Nasal Screen MRSA (PCR) SARS-CoV-2 (PCR) Influenza Type A (PCR) Influenza Type B (PCR) RSV (RT-PCR) 02/15/23 02/15/23 02/15/23 17:09 17:09 17:09 WBC RBC Hgb POC Hgb Hct POC Hct MCV MCH MCHC RDW Std Deviation RDW Coeff of Sandrita Plt Count MPV Immature Gran % (Auto) Neut % (Auto) Lymph % (Auto) [place] % (Auto) Eos % (Auto) Baso % (Auto) Neut # (Auto) Lymph # (Auto) [place] # (Auto) Eos # (Auto) Baso # (Auto) Immature Gran # (Auto) PT INR APTT PTT Ratio ABG pH ABG pCO2 ABG pO2 ABG HCO3 ABG O2 Saturation ABG Base Excess Epifanio Test VBG pH 7.29 L VBG pCO2 57 H VBG pO2 23 VBG HCO3 27 VBG O2 Saturation < 60.0 VBG Base Excess -0.3 Oxygen Given POC Sodium Sodium POC Potassium Potassium POC Chloride Chloride Carbon Dioxide POC Total CO2 Anion Gap POC Anion Gap POC BUN BUN Creatinine POC Creatinine Est Cr Clr Drug Dosing Est GFR ( Amer) Est GFR (Non-Af Amer) BUN/Creatinine Ratio Glucose POC Glucose POC Glucose (other) Lactate 1.8 Calcium POC Ioniz Calcium [place] Phosphorus Magnesium Total Bilirubin Direct Bilirubin AST ALT Alkaline Phosphatase Ammonia Total Creatine Kinase Troponin I High Sens Total Protein Albumin Procalcitonin 0.14 TSH Random Cortisol Urine Color Urine Appearance Urine pH Ur Specific [place] Urine Protein Urine Glucose (UA) Urine Ketones Urine Blood Urine Nitrite Urine Bilirubin Urine Urobilinogen Ur Leukocyte Esterase Urine WBC (Auto) Urine RBC (Auto) U Hyaline Cast (Auto) U Epithel Cells (Auto) Urine Bacteria (Auto) Urine Yeast Nasal Screen MRSA (PCR) SARS-CoV-2 (PCR) Influenza Type A (PCR) Influenza Type B (PCR) RSV (RT-PCR) 02/15/23 02/15/23 02/15/23 17:09 17:13 17:57 WBC RBC Hgb POC Hgb 13.3 L Hct POC Hct 39 L MCV MCH MCHC RDW Std Deviation RDW Coeff of Sandrita Plt Count MPV Immature Gran % (Auto) Neut % (Auto) Lymph % (Auto) [place] % (Auto) Eos % (Auto) Baso % (Auto) Neut # (Auto) Lymph # (Auto) [place] # (Auto) Eos # (Auto) Baso # (Auto) Immature Gran # (Auto) PT INR APTT PTT Ratio ABG pH ABG pCO2 ABG pO2 ABG HCO3 ABG O2 Saturation ABG Base Excess Epifanio Test VBG pH VBG pCO2 VBG pO2 VBG HCO3 VBG O2 Saturation VBG Base Excess Oxygen Given POC Sodium 136 Sodium POC Potassium 4.6 Potassium POC Chloride 100 L Chloride Carbon Dioxide POC Total CO2 27 Anion Gap POC Anion Gap 14.0 L POC BUN 71 H BUN Creatinine POC Creatinine 4.4 H Est Cr Clr Drug Dosing Est GFR ( Amer) Est GFR (Non-Af Amer) BUN/Creatinine Ratio Glucose POC Glucose POC Glucose (other) 73 Lactate Calcium POC Ioniz Calcium Donell 1.15 Phosphorus Magnesium Total Bilirubin Direct Bilirubin AST ALT Alkaline Phosphatase Ammonia Total Creatine Kinase Troponin I High Sens Total Protein Albumin Procalcitonin TSH 1.113 Random Cortisol Urine Color Urine Appearance Urine pH Ur Specific [place] Urine Protein Urine Glucose (UA) Urine Ketones Urine Blood Urine Nitrite Urine Bilirubin Urine Urobilinogen Ur Leukocyte Esterase Urine WBC (Auto) Urine RBC (Auto) U Hyaline Cast (Auto) U Epithel Cells (Auto) Urine Bacteria (Auto) Urine Yeast Nasal Screen MRSA (PCR) SARS-CoV-2 (PCR) NEGATIVE Influenza Type A (PCR) Negative Influenza Type B (PCR) Negative RSV (RT-PCR) Negative 02/15/23 02/15/23 02/15/23 19:28 23:20 23:20 WBC RBC Hgb POC Hgb Hct POC Hct MCV MCH MCHC RDW Std Deviation RDW Coeff of Sandrita Plt Count MPV Immature Gran % (Auto) Neut % (Auto) Lymph % (Auto) [place] % (Auto) Eos % (Auto) Baso % (Auto) Neut # (Auto) Lymph # (Auto) [place] # (Auto) Eos # (Auto) Baso # (Auto) Immature Gran # (Auto) PT INR APTT PTT Ratio ABG pH ABG pCO2 ABG pO2 ABG HCO3 ABG O2 Saturation ABG Base Excess Epifanio Test VBG pH VBG pCO2 VBG pO2 VBG HCO3 VBG O2 Saturation VBG Base Excess Oxygen Given POC Sodium Sodium 136 POC Potassium Potassium 4.1 POC Chloride Chloride 108 H Carbon Dioxide 23 POC Total CO2 Anion Gap 5 POC Anion Gap POC BUN BUN 57 H Creatinine 3.23 H D POC Creatinine Est Cr Clr Drug Dosing 20.7 Est GFR ( Amer) 19.5 Est GFR (Non-Af Amer) 16.8 BUN/Creatinine Ratio 17.6 Glucose 94 POC Glucose POC Glucose (other) Lactate Calcium 7.6 L POC Ioniz Calcium [place] Phosphorus Magnesium Total Bilirubin Direct Bilirubin AST ALT Alkaline Phosphatase Ammonia 22.0 Total Creatine Kinase Cancelled 104 Troponin I High Sens Total Protein Albumin Procalcitonin TSH Random Cortisol Urine Color Urine Appearance Urine pH Ur Specific [place] Urine Protein Urine Glucose (UA) Urine Ketones Urine Blood Urine Nitrite Urine Bilirubin Urine Urobilinogen Ur Leukocyte Esterase Urine WBC (Auto) Urine RBC (Auto) U Hyaline Cast (Auto) U Epithel Cells (Auto) Urine Bacteria (Auto) Urine Yeast Nasal Screen MRSA (PCR) SARS-CoV-2 (PCR) Influenza Type A (PCR) Influenza Type B (PCR) RSV (RT-PCR) 02/15/23 02/15/23 02/15/23 23:20 23:21 23:26 WBC RBC Hgb POC Hgb Hct POC Hct MCV MCH MCHC RDW Std Deviation RDW Coeff of Sandrita Plt Count MPV Immature Gran % (Auto) Neut % (Auto) Lymph % (Auto) [place] % (Auto) Eos % (Auto) Baso % (Auto) Neut # (Auto) Lymph # (Auto) [place] # (Auto) Eos # (Auto) Baso # (Auto) Immature Gran # (Auto) PT INR APTT PTT Ratio ABG pH 7.31 L ABG pCO2 40 ABG pO2 67 L ABG HCO3 20 ABG O2 Saturation 93.1 ABG Base Excess -5.8 Epifanio Test Pos VBG pH VBG pCO2 VBG pO2 VBG HCO3 VBG O2 Saturation VBG Base Excess Oxygen Given ROOM AIR POC Sodium Sodium POC Potassium Potassium POC Chloride Chloride Carbon Dioxide POC Total CO2 Anion Gap POC Anion Gap POC BUN BUN Creatinine POC Creatinine Est Cr Clr Drug Dosing Est GFR ( Amer) Est GFR (Non-Af Amer) BUN/Creatinine Ratio Glucose POC Glucose POC Glucose (other) Lactate Calcium POC Ioniz Calcium [place] Phosphorus Magnesium Total Bilirubin Direct Bilirubin AST ALT Alkaline Phosphatase Ammonia Total Creatine Kinase Troponin I High Sens Total Protein Albumin Procalcitonin TSH Random Cortisol 11.97 Urine Color Urine Appearance Urine pH Ur Specific [place] Urine Protein Urine Glucose (UA) Urine Ketones Urine Blood Urine Nitrite Urine Bilirubin Urine Urobilinogen Ur Leukocyte Esterase Urine WBC (Auto) Urine RBC (Auto) U Hyaline Cast (Auto) U Epithel Cells (Auto) Urine Bacteria (Auto) Urine Yeast Nasal Screen MRSA (PCR) Negative SARS-CoV-2 (PCR) Influenza Type A (PCR) Influenza Type B (PCR) RSV (RT-PCR) 02/15/23 02/15/23 02/16/23 23:46 Unknown 06:01 WBC 11.83 H RBC 4.35 L Hgb 12.4 L POC Hgb Hct 37.7 L POC Hct MCV 86.7 MCH 28.5 MCHC 32.9 RDW Std Deviation 43.6 RDW Coeff of Sandrita 13.7 Plt Count 183 MPV 11.6 Immature Gran % (Auto) 0.3 Neut % (Auto) 88.6 Lymph % (Auto) 6.1 [place] % (Auto) 4.5 Eos % (Auto) 0.3 Baso % (Auto) 0.2 Neut # (Auto) 10.49 H Lymph # (Auto) 0.72 L [place] # (Auto) 0.53 Eos # (Auto) 0.03 Baso # (Auto) 0.02 Immature Gran # (Auto) 0.04 PT INR APTT PTT Ratio ABG pH ABG pCO2 ABG pO2 ABG HCO3 ABG O2 Saturation ABG Base Excess Epifanio Test VBG pH VBG pCO2 VBG pO2 VBG HCO3 VBG O2 Saturation VBG Base Excess Oxygen Given POC Sodium Sodium POC Potassium Potassium POC Chloride Chloride Carbon Dioxide POC Total CO2 Anion Gap POC Anion Gap POC BUN BUN Creatinine POC Creatinine Est Cr Clr Drug Dosing Est GFR ( Amer) Est GFR (Non-Af Amer) BUN/Creatinine Ratio Glucose POC Glucose 99 POC Glucose (other) Lactate Calcium POC Ioniz Calcium [place] Phosphorus Magnesium Total Bilirubin Direct Bilirubin AST ALT Alkaline Phosphatase Ammonia Total Creatine Kinase Troponin I High Sens Total Protein Albumin Procalcitonin TSH Random Cortisol Urine Color Yellow Urine Appearance Cloudy A Urine pH 5.0 Ur Specific [place] 1.013 Urine Protein Trace H Urine Glucose (UA) Negative Urine Ketones Negative Urine Blood 2+ H Urine Nitrite Negative Urine Bilirubin Negative Urine Urobilinogen Negative Ur Leukocyte Esterase 1+ H Urine WBC (Auto) 10-30 H Urine RBC (Auto) 5-10 H U Hyaline Cast (Auto) 5-10 H U Epithel Cells (Auto) 20-30 H Urine Bacteria (Auto) Negative Urine Yeast Present A Nasal Screen MRSA (PCR) SARS-CoV-2 (PCR) Influenza Type A (PCR) Influenza Type B (PCR) RSV (RT-PCR) 02/16/23 02/16/23 02/16/23 06:01 07:58 11:25 WBC RBC Hgb POC Hgb Hct POC Hct MCV MCH MCHC RDW Std Deviation RDW Coeff of Sandrita Plt Count MPV Immature Gran % (Auto) Neut % (Auto) Lymph % (Auto) [place] % (Auto) Eos % (Auto) Baso % (Auto) Neut # (Auto) Lymph # (Auto) [place] # (Auto) Eos # (Auto) Baso # (Auto) Immature Gran # (Auto) PT INR APTT PTT Ratio ABG pH ABG pCO2 ABG pO2 ABG HCO3 ABG O2 Saturation ABG Base Excess Epifanio Test VBG pH VBG pCO2 VBG pO2 VBG HCO3 VBG O2 Saturation VBG Base Excess Oxygen Given POC Sodium Sodium 137 POC Potassium Potassium 4.4 POC Chloride Chloride 107 Carbon Dioxide 22 POC Total CO2 Anion Gap 8 POC Anion Gap POC BUN BUN 51 H Creatinine 2.58 H D POC Creatinine Est Cr Clr Drug Dosing 25.5 Est GFR ( Amer) 25.5 Est GFR (Non-Af Amer) 22.0 BUN/Creatinine Ratio 19.8 Glucose 99 POC Glucose 117 H 124 H POC Glucose (other) Lactate Calcium 7.9 L POC Ioniz Calcium [place] Phosphorus 3.5 Magnesium 1.8 Total Bilirubin Direct Bilirubin AST ALT Alkaline Phosphatase Ammonia Total Creatine Kinase Troponin I High Sens Total Protein Albumin Procalcitonin TSH Random Cortisol Urine Color Urine Appearance Urine pH Ur Specific [place] Urine Protein Urine Glucose (UA) Urine Ketones Urine Blood Urine Nitrite Urine Bilirubin Urine Urobilinogen Ur Leukocyte Esterase Urine WBC (Auto) Urine RBC (Auto) U Hyaline Cast (Auto) U Epithel Cells (Auto) Urine Bacteria (Auto) Urine Yeast Nasal Screen MRSA (PCR) SARS-CoV-2 (PCR) Influenza Type A (PCR) Influenza Type B (PCR) RSV (RT-PCR) (2) Acute renal failure Acute renal failure type: unspecified Qualified Code(s): N17.9 - Acute kidney failure, unspecified
--- NOTE | 2023-02-16 12:43 | Electrocardiogram Report ---
Test Reason : Blood Pressure : / mmHG Vent. Rate : 137 BPM Atrial Rate : 326 BPM P-R Int : 000 ms QRS Dur : 020 ms QT Int : 088 ms P-R-T Axes : 209 000 211 degrees QTc Int : 132 ms Poor data quality, interpretation may be adversely affected Probable Atrial flutter with variable A-V block with premature ventricular or aberrantly conducted co mplexes Low voltage QRS Abnormal ECG When compared with ECG of 28-JUL-2022 09:53, Significant changes have occurred Confirmed by Martinez Olivas ([id number]) on 02/16/2023 12:43:11 PM Referred By: Heather MCCORMICK Confirmed By:Martinez Olivas
[2023-02-16] MEDS: METOPROLOL TARTRATE 50 MG TAB PO SCH ×2 (13:00→20:59)
[2023-02-16 17:34] LABS: Adenovirus F 40/41 PCR Not Detected (NotDetected); Astrovirus PCR Not Detected (NotDetected); Campylobacter PCR Not Detected (NotDetected); Cryptosporidium PCR Not Detected (NotDetected); Cyclospora cayetanensis PCR Not Detected (NotDetected); Entamoeba histolytica PCR Not Detected (NotDetected); Enteroaggregative E.coli(EAEC) Not Detected (NotDetected); Enteropathogenic E.coli (EPEC) Not Detected (NotDetected); Enterotoxigenic E.coli (ETEC) Not Detected (NotDetected); Giardia lamblia PCR Not Detected (NotDetected); Norovirus GI/GII PCR Not Detected (NotDetected); Plesiomonas shigelloides PCR Not Detected (NotDetected); Rotavirus A PCR Not Detected (NotDetected); Salmonella PCR Not Detected (NotDetected); Sapovirus PCR Not Detected (NotDetected); Shiga-like Toxin E.coli (STEC) Not Detected (NotDetected); Shigella/Enteroinvasive E.coli Not Detected (NotDetected); Vibrio cholerae PCR Not Detected (NotDetected); Vibrio species PCR Not Detected (NotDetected); Yersinia enterocolitica PCR Not Detected (NotDetected)
[2023-02-17] MEDS: PLASMA-LYTE A 1,000 ML IV SCH ×3 (01:02→16:51)
[2023-02-17] MEDS: cefTRIAXone SODIUM 2,000 MG in DEXTROSE 5% 50 ML IV SCH (01:02)
[2023-02-17] MEDS: HEPARIN SOD 5,000 UNIT/0.5 ML VIAL SQ SCH ×3 (05:23→21:28)
[2023-02-17 08:25] LABS: Basophils # (auto) 0.03 K/uL (0-0.2); Basophils % (auto) 0.3 %; Eosinophils # (auto) 0.13 K/uL (0-0.50); Eosinophils % (auto) 1.4 %; Hematocrit (blood only) 40.5 % (42.0-52.0); Hemoglobin 13.6 g/dl (14.0-18.0); Immature Granulocytes # (auto) 0.04 K/uL (0.01-0.20); Immature Granulocytes % (auto) 0.4 %; Lymphocytes # (auto) 1.54 K/uL (1.2-3.4); Lymphocytes % (auto) 16.8 %; Mean Corpuscular Hemoglobin 28.8 pg (25.0-34.0); Mean Corpuscular Hgb Conc 33.6 g/dL (32.0-36.0); Mean Corpuscular Volume 85.6 fL (80.0-100.0); Mean Platelet Volume 11.9 fL (9.4-12.4); Monocytes # (auto) 1.23 K/uL (0.11-0.59); Monocytes % (auto) 13.4 %; Neutrophils % (auto) 67.7 %; Platelet Count 195 K/uL (130-400); RDW Coefficient of Variation 13.7 % (11.5-14.5); RDW Standard Deviation 42.7 fL (36.4-46.3); Red Blood Count 4.73 M/uL (4.70-6.10); White Blood Count 9.17 K/ul (4.8-10.8)
[2023-02-17 08:29] LABS: BUN Creatinine Ratio 22.4 (10-20); Calcium 8.1 mg/dl (8.6-10.3); Creatinine Clr Calc Pharmacy 44.9 ml/min; Est GFR (African American) 50.4 ml/min; Est GFR (Non-African American) 43.5 ml/min; Magnesium 2.2 mg/dl (1.7-2.4); Phosphorus 2.3 mg/dl (2.5-4.9); Potassium 4.3 mmol/L (3.5-5.1)
[2023-02-17] MEDS: INSULIN ASPART PER UNIT CHARGE SC SCH ×4 (08:32→20:25)
[2023-02-17] MEDS: ASPIRIN 81 MG ECTAB PO SCH (08:58)
[2023-02-17] MEDS: FLUoxetine HCL 20 MG CAP PO SCH (08:59)
[2023-02-17] MEDS: DOXYCYCLINE HYCLATE 100 MG CAP PO SCH ×2 (08:59→21:27)
[2023-02-17] MEDS: FLUTICASONE FUROATE 200MCG 14 PUFFS/INHALER INH SCH (08:59)
[2023-02-17] MEDS: METOPROLOL TARTRATE 50 MG TAB PO SCH ×2 (08:59→21:28)
[2023-02-17] MEDS: CLOPIDOGREL BISULFATE 75 MG TAB PO SCH (08:59)
--- NOTE | 2023-02-17 16:21 | Hospitalist Progress Note ---
Date of Service February 17, 2023 Assessment & Plan (1) Hypotension: Plan Hypotension- Secondary to hypovolemia secondary to diarrheal illness. Resolved. Now BP rebounded. on metoprolol Diarrhea- resolved. C diff negative. DONNIE- Cr improving with IVF. Cr 4.26->3.2->2.58->1.47. Baseline Cr of 0.9. DONNIE was prerenal due to dehydration. Continue IVF, recheck in am, avoid nephrotoxics Hypophosphatemia- mild. recheck in am. BCC, nose status post surgery/failed flap reconstruction (December 2022) and subsequent takedown (01/2023) Status post Mohs surgery -Follows with fire tender at [facility] Dr. Marilyn Koroma -Maintain dressing over scalp and nasal area-sutured in place secondary to patient manipulating the dressings -Apply Vaseline twice a day to dressings in place hx CAD status post stent COPD-not in exacerbation hyperlipidemia, on statin Rx DM2 insulin requiring, well-controlled as of hemoglobin A1c of 7 last month chronic anemia, hemoglobin at baseline history of MRSA past tobacco abuse DVT prophylaxis. Heparin subcu Disposition- Return to correctional facility likely tomorrow Admission and Anticipated Discharge Date Admission Date: February 15, 2023 Subjective Patient was seen and examined bedside. He feels fine. Denies any issues. He pulled out his dressing from his nose today. No fever, chills, chest pain, SOB, N/V. Normal oral intake. Review of Systems Review of Systems: All systems reviewed & are unremarkable except as noted in Subjective Physical Exam Physical Exam: General:Moderately built, Lying comfortably in bed, not in distress, on room air HEENT: PAUL, MMM Chest: Clear breath sounds anteriorly CVS: Regular rate and rhythm, normal heart sounds, no murmur Abdomen: Soft, non tender, not distended, normal bowel sounds Neuro: Awake, alert, conversing well, non focal Extremities: No cyanosis, clubbing or edema Skin: Scalp wound with dressing sutured to skin. Dressing on nose pulled out by patient. Rt hand cuffed. Results & Data Results & Data Vital Signs (Past 12 Hours) Vital Signs Temp Pulse Pulse Resp BP Pulse Ox O2 Del Method 02/17/23 15:33 98 H 02/17/23 11:53 36.7 C 74 18 144/72 H 95 Room Air 02/17/23 08:14 36.8 C 63 20 135/74 95 Room Air 02/17/23 07:00 61 Laboratory Results Short CBC 02/17/23 Range/Units 07:13 WBC 9.17 (4.8-10.8) K/ul Hgb 13.6 L (14.0-18.0) g/dl Hct 40.5 L (42.0-52.0) % Plt Count 195 (130-400) K/uL BMP 02/17/23 07:13 Sodium 140 Potassium 4.3 Chloride 108 H Carbon Dioxide 25 BUN 33 H Creatinine 1.47 H D Glucose 86 Calcium 8.1 L Medications Administered Current Inpatient Medications Acetaminophen (Acetaminophen 325 Mg Tab) 650 mg PO Q4H PRN PRN Reason: Pain or Fever Stop: 03/17/23 22:51 Albuterol (Albut/Ipratrop 3mg/0.5mg Neb 3 Ml Vial) 3 ml NEB Q4R PRN; Protocol PRN Reason: Shortness Of Breath Or Wheezing Stop: 03/18/23 06:59 Aspirin (Aspirin 81 Mg Ectab) 81 mg PO DAILY MENDOZA Stop: 03/18/23 08:59 Last Admin: 02/17/23 08:58 Dose: 81 mg Clopidogrel Bisulfate (Clopidogrel Bisulfate 75 Mg Tab) 75 mg PO DAILY MENDOZA Stop: 03/18/23 08:59 Last Admin: 02/17/23 08:59 Dose: 75 mg Dextrose (Dextrose 50% 50 Ml Syringe) 25 - 50 ml IV UD PRN; Protocol PRN Reason: Hypoglycemia Protocol Stop: 03/17/23 22:51 Doxycycline Hyclate (Doxycycline Hyclate 100 Mg Cap) 100 mg PO BID MENDOZA Stop: 02/24/23 23:59 Last Admin: 02/17/23 08:59 Dose: 100 mg Fluoxetine HCl (Fluoxetine Hcl 20 Mg Cap) 20 mg PO DAILY MENDOZA Stop: 03/18/23 08:59 Last Admin: 02/17/23 08:59 Dose: 20 mg Fluticasone Furoate (Fluticasone Furoate 200mcg 14 Puffs/Inhaler) 1 puffs INH DAILY MENDOZA Stop: 03/18/23 08:59 Last Admin: 02/17/23 08:59 Dose: 1 puffs Glucagon (Glucagon For Inj 1 Mg Vial) 1 mg SQ UD PRN; Protocol PRN Reason: Hypoglycemia Protocol Stop: 03/17/23 22:51 Glucose (Glucose 10 Tab/Tube) 4 - 8 tab PO UD PRN; Protocol PRN Reason: Hypoglycemia Treatment Stop: 03/17/23 22:51 Glucose (Glucose 40% Gel 15 Gm Tube) 15 - 30 gm PO UD PRN; Protocol PRN Reason: Hypoglycemia Protocol Stop: 03/17/23 22:51 Heparin Sodium (Porcine) (Heparin Sod 5,000 Unit/0.5 Ml Vial) 5,000 units SQ Q8 MENDOZA Stop: 03/17/23 22:51 Last Admin: 02/17/23 15:04 Dose: Not Given Parenteral Electrolytes (Plasma-Lyte A Ph 7.4) 1,000 mls @ 100 mls/hr IV .Q10H MENDOZA Stop: 03/17/23 23:29 Last Admin: 02/17/23 08:58 Dose: 125 mls/hr Ceftriaxone Sodium 2,000 mg/ (Dextrose) 70 mls @ 100 mls/hr IV Q24H MENDOZA; Gary col Stop: 02/26/23 00:59 Last Infusion: 02/17/23 02:15 Dose: Infused Insulin Aspart (Insulin Aspart Per Unit Charge) 0 units SC ACHS MENDOZA Stop: 03/17/23 22:51 Last Admin: 02/17/23 11:48 Dose: Not Given Metoprolol Tartrate (Metoprolol Tartrate 50 Mg Tab) 50 mg PO BID MENDOZA Stop: 03/18/23 10:44 Last Admin: 02/17/23 08:59 Dose: 50 mg Miscellaneous (Carbohydrates For Hypoglycemia ) 15 - 30 gm PO UD PRN PRN Reason: Hypoglycemia Protocol Stop: 03/17/23 22:51 (1) Hypotension Hypotension type: unspecified hypotension type Qualified Code(s): I95.9 - Hypotension, unspecified
[2023-02-17] MEDS ORDERED: ISOSORBIDE MONO EXTENDED REL 30 MG TABCR PO ONE (20:38)
[2023-02-18] MEDS: PLASMA-LYTE A 1,000 ML IV SCH (01:22)
[2023-02-18] MEDS: cefTRIAXone SODIUM 2,000 MG in DEXTROSE 5% 50 ML IV SCH (01:25)
[2023-02-18] MEDS: HEPARIN SOD 5,000 UNIT/0.5 ML VIAL SQ SCH (06:04)
[2023-02-18 08:04] LABS: BUN Creatinine Ratio 22.9 (10-20); Calcium 7.7 mg/dl (8.6-10.3); Creatinine Clr Calc Pharmacy 69.6 ml/min; Est GFR (African American) 84.4 ml/min; Est GFR (Non-African American) 72.8 ml/min; Potassium 4.3 mmol/L (3.5-5.1)
[2023-02-18] MEDS: INSULIN ASPART PER UNIT CHARGE SC SCH (08:39)
[2023-02-18] MEDS: ASPIRIN 81 MG ECTAB PO SCH (09:12)
[2023-02-18] MEDS: FLUoxetine HCL 20 MG CAP PO SCH (09:12)
[2023-02-18] MEDS: CLOPIDOGREL BISULFATE 75 MG TAB PO SCH (09:12)
[2023-02-18] MEDS: METOPROLOL TARTRATE 50 MG TAB PO SCH (09:12)
[2023-02-18] MEDS: DOXYCYCLINE HYCLATE 100 MG CAP PO SCH (09:13)
[2023-02-18] MEDS: FLUTICASONE FUROATE 200MCG 14 PUFFS/INHALER INH SCH (09:13)
--- NOTE | 2023-02-18 11:43 | Discharge Summary ---
Date of Service February 18, 2023 Admission HPI Per Admitting Provider History obtained from patient and records. Patient is a fair historian. Medical history significant for CHF as per records, CAD status post stent, COPD, hypertension, hyperlipidemia, DM2 insulin requiring, skin cancer nose status post surgery/failed flap reconstruction (December 2022) and subsequent takedown, chronic anemia (baseline hemoglobin of 13 ), history of MRSA, past tobacco abuse. 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 Patient confined last month failed flap, infected nasal reconstruction, kidney dysfunction. Wound cultures grew MRSA. Patient discharged on doxycycline course. Creatinine back to normal on discharge. Complete flap necrosis due to bandage noncompliance and postop infection as per pig machine crane operator note 3 weeks ago. Subsequent forehead flap takedown procedure done at the office. Manager Party worried about compliance with doxycycline and wound care instructions at the detention on outpatient follow-up visit 2 weeks ago. Last week, patient noted watery diarrhea symptoms with some abdominal pain. No unusual chest pain, SOB. Patient denies unusual cough symptoms. Patient noted to have rhonchi on exam as per facility notes. Levaquin initiated at corrections facility today. Patient noted to be persistently hypotensive, SBP 70s despite IV fluids. Lowest SBP of 60s noted at the ER. Zosyn administered at the ER. Levophed infusion initiated at the ER. Medical Historyas above Surgical History : Appendectomy, nasal flap reconstruction/takedown Family History : Heart disease Personal/Social history : Past tobacco abuse, no EtOH intake, detention inmate Admission Exam Per Admitting Provider GENERAL: oriented to place, comfortable, morbidly obese, hard of hearing, no respiratory distress SKIN: Pallor, warm HEENT: Partial alopecia, dressing over skull vertex, pale palpebral conjunctivae, no ptosis, dry buccal mucosa, O2 mask in place NECK : Supple, short neck, no tenderness CHEST : Decreased breath sounds, no tenderness HEART : RRR, no obvious murmurs ABDOMEN: Some distention, nontender EXTREMITIES : Minimal LE swelling, no LE tenderness, no other conspicuous deformities noted NEUROLOGIC : Oriented to place, no facial asymmetry, hard of hearing, gait and stance not assessed Principal Diagnosis Hypotension due to hypovolemia due to diarrhea, DONNIE Discharge Exam General:Moderately built, Lying comfortably in bed, not in distress, on room air HEENT: PAUL, MMM Chest: Clear breath sounds anteriorly CVS: Regular rate and rhythm, normal heart sounds, no murmur Abdomen: Soft, non tender, not distended, normal bowel sounds Neuro: Awake, alert, conversing well, non focal Extremities: No cyanosis, clubbing or edema Skin: Scalp wound with dressing sutured to skin. Dressing on nose pulled out by patient-no active infection noted. Rt hand cuffed. Discharge Data Allergies Allergy/AdvReac Type Severity Reaction Status Date / Time Sulfa (Sulfonamide Allergy Unknown ON SCI Verified 02/15/23 19:23 Antibiotics) [facility] MED LIST Consultations 02/15/23 19:12 ED Decision to Admit Stat 02/15/23 22:52 Consult Panel Lay Up Worker Routine 02/16/23 10:01 Consult Cardiology Routine Ordered Studies 02/15/23 16:48 CT abd pelvis wo con Stat CT head/brain wo con Stat 02/15/23 17:24 CT chest diagnostic wo con Stat Laboratory Results WBC 9.17 K/ul (4.8-10.8) 02/17/23 07:13 RBC 4.73 M/uL (4.70-6.10) 02/17/23 07:13 Hgb 13.6 g/dl (14.0-18.0) L 02/17/23 07:13 POC Hgb 13.3 g/dl (14.0-18.0) L 02/15/23 17:13 Hct 40.5 % (42.0-52.0) L 02/17/23 07:13 POC Hct 39 % (42-52) L 02/15/23 17:13 MCV 85.6 fL (80.0-100.0) 02/17/23 07:13 MCH 28.8 pg (25.0-34.0) 02/17/23 07:13 MCHC 33.6 g/dL (32.0-36.0) 02/17/23 07:13 RDW Std Deviation 42.7 fL (36.4-46.3) 02/17/23 07:13 RDW Coeff of Sandrita 13.7 % (11.5-14.5) 02/17/23 07:13 Plt Count 195 K/uL (130-400) 02/17/23 07:13 MPV 11.9 fL (9.4-12.4) 02/17/23 07:13 Immature Gran % (Auto) 0.4 % 02/17/23 07:13 Neut % (Auto) 67.7 % 02/17/23 07:13 Lymph % (Auto) 16.8 % 02/17/23 07:13 Gooding % (Auto) 13.4 % 02/17/23 07:13 Eos % (Auto) 1.4 % 02/17/23 07:13 Baso % (Auto) 0.3 % 02/17/23 07:13 Neut # (Auto) 6.20 K/uL (1.40-6.50) 02/17/23 07:13 Lymph # (Auto) 1.54 K/uL (1.2-3.4) 02/17/23 07:13 Gooding # (Auto) 1.23 K/uL (0.11-0.59) H 02/17/23 07:13 Eos # (Auto) 0.13 K/uL (0-0.50) 02/17/23 07:13 Baso # (Auto) 0.03 K/uL (0-0.2) 02/17/23 07:13 Immature Gran # (Auto) 0.04 K/uL (0.01-0.20) 02/17/23 07:13 PT 13.1 Seconds (9.0-12.0) H 02/15/23 17:09 INR 1.2 (0.9-1.1) H 02/15/23 17:09 APTT 29.3 Seconds (21.0-31.0) 02/15/23 17:09 PTT Ratio 1.0 02/15/23 17:09 ABG pH 7.31 (7.35-7.45) L 02/15/23 23: ABG pCO2 40 mmHg (35-46) 02/15/23 23: ABG pO2 67 mmHg (80-95) L 02/15/23 23: ABG HCO3 20 mmol/L (19-24) 02/15/23 23: ABG O2 Saturation 93.1 % (90-95) 02/15/23 23: ABG Base Excess -5.8 mEq/L (-9-1.8) 02/15/23 23:26 Epifanio Test Pos (Pos) 02/15/23 23:26 VBG pH 7.29 (7.36-7.41) L 02/15/23 17:09 VBG pCO2 57 mmHg (38-50) H 02/15/23 17:09 VBG pO2 23 mmHg 02/15/23 17:09 VBG HCO3 27 mmol/L 02/15/23 17:09 VBG O2 Saturation < 60.0 % 02/15/23 17:09 VBG Base Excess -0.3 mEq/L 02/15/23 17:09 Oxygen Given ROOM AIR 02/15/23 23:26 POC Sodium 136 mmol/L (135-144) 02/15/23 17:13 Sodium 137 mmol/L (136-145) 02/18/23 07:15 POC Potassium 4.6 mmol/L (3.3-5.0) 02/15/23 17:13 Potassium 4.3 mmol/L (3.5-5.1) 02/18/23 07:15 POC Chloride 100 mmol/L (101-112) L 02/15/23 17:13 Chloride 107 mmol/L (98-107) 02/18/23 07:15 Carbon Dioxide 26 mmol/L (21-32) 02/18/23 07:15 POC Total CO2 27 mmol/L (24-31) 02/15/23 17:13 Anion Gap 4 (3-11) 02/18/23 07:15 POC Anion Gap 14.0 mmol/L (16-25) L 02/15/23 17:13 POC BUN 71 mg/dl (7-18) H 02/15/23 17:13 BUN 22 mg/dl (6-23) 02/18/23 07:15 Creatinine 0.96 mg/dl (0.6-1.4) D 02/18/23 07:15 POC Creatinine 4.4 mg/dl (0.6-1.3) H 02/15/23 17:13 Est Cr Clr Drug Dosing 69.6 ml/min 02/18/23 07:15 Est GFR ( Amer) 84.4 ml/min 02/18/23 07:15 Est GFR (Non-Af Amer) 72.8 ml/min 02/18/23 07:15 BUN/Creatinine Ratio 22.9 (10-20) H 02/18/23 07:15 Glucose 100 mg/dl (70-99(Fasting)) H 02/18/23 07:15 POC Glucose 91 mg/dl (70-99) 02/18/23 07:40 POC Glucose (other) 73 mg/dl (70-99) 02/15/23 17:13 Lactate 1.8 mmol/L (0.4-2.0) 02/15/23 17:09 Calcium 7.7 mg/dl (8.6-10.3) L 02/18/23 07:15 POC Ioniz Calcium Donell 1.15 mmol/l (1.12-1.32) 02/15/23 17:13 Phosphorus 2.3 mg/dl (2.5-4.9) L D 02/17/23 07:13 Magnesium 2.2 mg/dl (1.7-2.4) 02/17/23 07:13 Total Bilirubin 0.5 mg/dl (0.2-1.0) 02/15/23 17:09 Direct Bilirubin 0.1 mg/dl (0-0.2) 02/15/23 17:09 AST 17 U/L (13-39) 02/15/23 17:09 ALT 13 U/L (7-52) 02/15/23 17:09 Alkaline Phosphatase 86 U/L (34-104) 02/15/23 17:09 Ammonia 22.0 umol/L (18-72) 02/15/23 23:20 Total Creatine Kinase 104 U/L (30-223) 02/15/23 23:20 Troponin I High Sens 6.2 pg/ml (0-20) 02/15/23 17:09 Total Protein 6.2 gm/dl (6.0-8.3) 02/15/23 17:09 Albumin 3.0 gm/dl (3.4-5.0) L 02/15/23 17:09 Procalcitonin 0.14 ng/ml (0-0.5) 02/15/23 17:09 TSH 1.113 uIu/ml (0.300-4.500) 02/15/23 17:09 Random Cortisol 11.97 mcg/dl 02/15/23 23:20 Urine Color Yellow 02/15/23 Unknown Urine Appearance Cloudy (Clear) A 04/24/23 Unknown Urine pH 5.0 (4.5-7.5) 02/15/23 Unknown Ur Specific [place] 1.013 (1.000-1.030) 02/15/23 Unknown Urine Protein Trace (Negative) H 02/15/23 Unknown Urine Glucose (UA) Negative (Negative) 02/15/23 Unknown Urine Ketones Negative (Negative) 02/15/23 Unknown Urine Blood 2+ (Negative) H 02/15/23 Unknown Urine Nitrite Negative (Negative) 02/15/23 Unknown Urine Bilirubin Negative (Negative) 02/15/23 Unknown Urine Urobilinogen Negative (Negative) 02/15/23 Unknown Ur Leukocyte Esterase 1+ (Negative) H 02/15/23 Unknown Urine WBC (Auto) 10-30 /hpf (0-5) H 02/15/23 Unknown Urine RBC (Auto) 5-10 /hpf (0-4) H 02/15/23 Unknown U Hyaline Cast (Auto) 5-10 /lpf (0-5) H 02/15/23 Unknown U Epithel Cells (Auto) 20-30 /lpf (0-5) H 02/15/23 Unknown Urine Bacteria (Auto) Negative (Negative) 02/15/23 Unknown Urine Yeast Present (None Prsent) A 02/15/23 Unknown Nasal Screen MRSA (PCR) Negative (Negative) 02/15/23 23:21 Stl C. cayetanensis PCR Not Detected (NotDetected) 02/16/23 13:40 Stool Rotavirus A PCR Not Detected (NotDetected) 02/16/23 13:40 Stl Adenov F PCR Not Detected (NotDetected) 02/16/23 13:40 Stool Astrovirus (PCR) Not Detected (NotDetected) 02/16/23 13:40 Stool Campylobacter PCR Not Detected (NotDetected) 02/16/23 13:40 Stl C. diff Tox B Gene Negative Cdiff Gene (Neg) 02/16/23 13:40 Stool Cryptosporidium PCR Not Detected (NotDetected) 02/16/23 13:40 Stl E.coli Shiga Tox PCR Not Detected (NotDetected) 02/16/23 13:40 Stl Enterotoxigenic E PCR Not Detected (NotDetected) 02/16/23 13:40 Stool EPEC (PCR) Not Detected (NotDetected) 02/16/23 13:40 Stool EAEC (PCR) Not Detected (NotDetected) 02/16/23 13:40 Stl E. histolytica PCR Not Detected (NotDetected) 02/16/23 13:40 Stool Giardia Lamblia PCR Not Detected (NotDetected) 02/16/23 13:40 Stool Salmonella PCR Not Detected (NotDetected) 02/16/23 13:40 Stool Sapovirus (PCR) Not Detected (NotDetected) 02/16/23 13:40 Stl P. shigelloides PCR Not Detected (NotDetected) 02/16/23 13:40 Stl Shigella/EIEC PCR Not Detected (NotDetected) 02/16/23 13:40 St Y.enterocolitica PCR Not Detected (NotDetected) 02/16/23 13:40 Stool Vibrio (PCR) Not Detected (NotDetected) 02/16/23 13:40 Stl Vibrio cholerae PCR Not Detected (NotDetected) 02/16/23 13:40 Stl Norovirus GI/GII PCR Not Detected (NotDetected) 02/16/23 13:40 SARS-CoV-2 (PCR) NEGATIVE (Negative) 02/15/23 17:57 Influenza Type A (PCR) Negative (Neg) 02/15/23 17:57 Influenza Type B (PCR) Negative (Neg) 02/15/23 17:57 RSV (RT-PCR) Negative (Neg) 02/15/23 17:57 Impressions Abdomen/Pelvis CT 02/15/23 16:48 CT abd pelvis wo con CLINICAL HISTORY: hypotension TECHNIQUE: Helical axial images of the abdomen and pelvis were obtained. Automated dose lowering techniques and/or adjustment according to patient size were utilized for this exam. This exam was performed without intravenous contrast. COMPARISON: None available at the time of this dictation. FINDINGS: Lower chest: No acute abnormality. Liver: Unremarkable. No focal lesions are seen. Gallbladder and biliary tree: Layering radiodense material is seen in the dependent portion of the likely representing sludge. No intra- or extrahepatic biliary ductal dilation. Pancreas: Unremarkable, no focal lesions. Spleen: Unremarkable. Adrenals: Unremarkable. Kidneys and ureters: Perinephric stranding is noted bilaterally. Bladder: Linares catheter is seen. Reproductive organs: Unremarkable. Bowel: Diverticulosis is seen without evidence of diverticulitis. Moderate hiatal hernia is seen. Lymph nodes Retroperitoneal: Unremarkable. Pelvic: Unremarkable. Mesenteric: Unremarkable. Peritoneum: Normal. Vessels: Atherosclerotic calcifications are seen. Abdominal wall: A fat-containing umbilical hernia is seen. Left inguinal hernia is also noted. Bones: Degenerative changes in the visualized spine. IMPRESSION: No acute abnormalities are seen. ACT 112: Negative or not required by law. Electronically signed by: Juan Pennington M.D. 02/15/2023 7:28 PM Chest X-Ray 02/15/23 16:48 XR chest 1V portable HISTORY: Sepsis COMPARISON: Chest 01/15/2023. FINDINGS: There are low lung volumes. No pneumothorax. Slightly rotated study. No evidence for pulmonary edema. The heart remains mildly enlarged. A hiatal hernia is again noted. No new focal lung consolidations to suggest a pneumonia. IMPRESSION: No significant change compared to the prior study. No acute process. A large hiatus hernia is again noted. ACT 112: Negative or not required by law. Electronically signed by: Stewart Salinas M.D. 02/15/2023 5:[address] 02/15/23 16:48 CT head/brain wo con CLINICAL HISTORY: AMS Technique: Contiguous axial CT images of the head were acquired from the base of the skull to the vertex without intravenous contrast administration. Images were viewed in brain, subdural and bone windows. Automated dose lowering techniques and/or adjustment according to patient size were utilized for this exam. Comparison: Comparison is made to CT head 01/15/2023 Findings: Areas of decreased attenuation are present in the periventricular and subcortical white matter bilaterally consistent with small vessel ischemic disease. Generalized cerebral atrophy with commensurate enlargement of the ventricles, sulci, and cisterns is also present. There is no acute intracranial hemorrhage or evidence of acute territorial infarction. No shift of the midline structures, mass effect, or extra-axial abnormalities are shown. Atherosclerotic calcifications are present in the intracranial segments of the internal carotid arteries. Imaged portions of the paranasal sinuses and mastoid air cells are clear. The orbits appear normal. Soft tissue swelling is seen in the right anterior f rontal region. Impression: No acute intracranial hemorrhage, no evidence of acute territorial infarction or other acute intracranial disease process. ACT 112: Negative or not required by law. Electronically signed by: Juan Pennington M.D. 02/15/2023 7:[address] 02/15/23 17:24 CT chest diagnostic wo con CLINICAL HISTORY: clavicle dislocation TECHNIQUE: Multidetector row helical CT of the chest was performed. Coronal and sagittal reformations were obtained. Automated dose lowering techniques and/or adjustment according to patient size were utilized for this exam. CT DOSE: 4455.41 mGy.cm Comparison: Comparison is made to CT chest 05/27/2021 FINDINGS: Lungs and pleura: Diffuse centrilobular emphysema is seen most prominent in the upper lobes. Bronchial wall thickening and atelectasis are seen. Heart and pericardium: Heart size is normal. No pericardial effusion. Vessels: Moderate atherosclerotic changes in the aorta and coronary arteries. Mediastinum and mary: Unremarkable. Chest wall and lower neck: Unremarkable. Abdomen: Moderate hiatal hernia is seen. Please see CT abdomen for findings below the diaphragm. Bones: The left clavicle/manubrial joint appears somewhat anteromedially displaced compared to the right. IMPRESSION: No acute fracture or thoracic abnormality. There may be mild subluxation of the left acromioclavicular joint. ACT 112: Negative or not required by law. Electronically signed by: Juan Pennington M.D. 02/15/2023 7:22 PM Hospital Course (1) Hypotension: Plan Hypotension- Secondary to hypovolemia secondary to diarrheal illness. Resolved. Now BP rebounded and now hypertensive. Resume SOFTWARE DATABASE ARCHITECT BP meds at discharge Diarrhea- resolved. C diff negative. DONNIE-resolved with IVF and holding nephrotoxic medications. Cr 4.26->3.2->2.58->1.47->0.9. Baseline Cr of 0.9. DONNIE was prerenal due to dehydration. BCC, nose status post surgery/failed flap reconstruction (December 2022) and subsequent takedown (01/2023) Status post Mohs surgery -Follows with pig machine crane operator at [facility] Dr. Marilyn Koroma -Maintain dressing over scalp and nasal area-sutured in place secondary to patient manipulating the dressings -Apply Vaseline twice a day to dressings in place -Continue doxycycline twice daily until follow-up with dermatology hx CAD status post stent COPD-not in exacerbation hyperlipidemia, on statin Rx DM2, well-controlled as of hemoglobin A1c of 7 last month chronic anemia, hemoglobin at baseline history of MRSA past tobacco abuse Patient is comfortable and stable to go back to correctional facility. I signed out to Dr. Arce from correctional facility prior to discharge. Total Time Total Time Spent Total Time Spent (In Minutes): 45 Discharge Plan Discharge Items Patient Disposition: Correctional Facility Reason For Visit: HYPOTENSION Discharge Diagnosis: Hypotension secondary to hypovolemia due to diarrhea, DONNIE Activity: Resume your previous activity Non-emergency contact: Primary Care Provider Call non-emergency contact if: you have any medication questions, your symptoms worsen and you have a fever Follow-up/Referrals: Gregory CMCORMICK [Primary Care Provider] - Diet: Carb Consistent or DM2, Heart Healthy and Low Sodium (2gm) Addtl Attending Provider Instructions: No medications changes were made at discharge. Continue local wound care of nose/scalp- apply vaseline twice daily with the dressing in place- Follow with Manager Party Dr Marilyn Koroma at [facility] next week for wound check. Continue doxycycline twice daily until seen by dermatology. Pending Studies at Discharge: No Stand-Alone Forms: My [facility] Skilled Items Patient informed of condition?: Yes Discharge Level of Care: Other Communicable Disease: No Discharge Prognosis: Stable Lines: None Urinary Catheter: No Medications and DC Order Prescriptions: Continued latanoprost 0.005 % Drops 1 drp OPHTHALMIC (EYE) PM ondansetron HCl 4 mg Tablet 4 mg PO TID PRN (Reason: Nausea) isosorbide mononitrate 30 mg Tablet Extended Release 24 Hr 30 mg PO DAILY Novolin 70/30 U-100 Insulin 100 unit/mL (70-30) Suspension 12 unit SUBCUT BID clopidogrel [Plavix] 75 mg Tablet 75 mg PO DAILY aspirin 81 mg Tablet,Delayed Release (Dr/Ec) 81 mg PO DAILY doxazosin 8 mg Tablet 8 mg PO HS fluoxetine 20 mg Tablet 20 mg PO DAILY Novolin R Regular U-100 Insuln 100 unit/mL Solution 1 sliding scale dose SUBCUT USEASDIRECTD Rx Instructions: Per sliding scale, >451 call metoprolol tartrate 50 mg Tablet 50 mg PO BID bumetanide 1 mg Tablet 1 mg PO DAILY levofloxacin 750 mg Tablet 750 mg PO DAILY Rx Instructions: Stop 02/20/2023 albuterol sulfate 90 mcg/actuation Hfa Aerosol Inhaler 2 puff INHALATION QID PRN (Reason: Shortness Of Breath) lisinopril 40 mg Tablet 40 mg PO DAILY rosuvastatin 10 mg Tablet 10 mg PO DAILY cranberry extract 250 mg Tablet 250 mg PO DAILY Alvesco 160 mcg/actuation Hfa Aerosol Inhaler 2 puff INHALATION BID PRN (Reason: Shortness Of Breath Or Wheezing) menthol-zinc oxide [Calmoseptine] 0.44-20.6 % Ointment 1 applic TOPICAL QID PRN (Reason: flare ups) doxycycline monohydrate 100 mg Capsule 100 mg PO BID 7 Days Qty: 14 0RF Rx Instructions: stop 02/24/2023 Discharge Orders: Discharge Order (Routine); Ordered 02/18/23 Ordered By: Brian Montenegro Admission Data Admit Date/Time: 02/15/23 21:43 Attending Provider: Brian Montenegro Admit Provider: Mark Jacobs Primary Care Provider: Gregory MCCORMICK Other Providers: Mark Jacobs ; Austin Spence ; Stephanie Whitlock ; Dawood Britt ; Axel Madrid ; Julio Mathis ; Doc Luis ; Song Toth ; Danelle Bee ; Rosi Rivas ; Stephanie Reed ; Facundo Hopkins ; Moshe Carrera Other Interventions: Discharge Summary Assessment (RN) Last Done: 02/18/23 09:59
--- NOTE | 2023-02-21 09:24 | Coding Query ---
To promote full compliance with coding requirements relating to patient care, provider participation is requested in all cases of suspect artist uncertainty. Please assist us with the question(s) below: Coding Question(s): The diagnosis(es) below was documented in the progress notes then subsequently fell off all further documentation. Please indicate if it is still a possible diagnosis or ruled out. Physician's Response(s): SEPSIS ( ) Diagnosed and POA ( ) Diagnosed and not POA (X) Ruled out ( ) Other (please specify) Thank you for your assistance, Laxmi Mendoza - Block Operator JACQUES
== END 2023-02-18 12:18 | DRG 683 ==
LOC: ED 16:43 → 1E 21:43 → SUATTDRO 21:43 → 1E 22:40 → 2S 02-16 15:55

== ENCOUNTER 2023-04-08 14:08 | Inpatient (IN) ==
[2023-04-08] MEDS ORDERED: SODIUM CHLORIDE 0.9% 1000ML 1,000 ML IV ONE ×3 (14:26→16:42)
[2023-04-08] MEDS ORDERED: PIPERACILLIN/TAZOBACTAM 4.5 GM/120 ML BAG IV ONE (14:26)
--- NOTE | 2023-04-08 14:33 | Emergency Department Note ---
Impression & Plan Sepsis, Catheter-associated urinary tract infection, AMS (altered mental status), Syncope, Head injury, Contusion of forehead ED Provider Note NAME: BERRY CORDOBA AGE: 82 SEX: M : 1940 ARRIVES VIA: Ambulance INFORMANT: Patient, EMS, Nursing staff ED PROVIDER(S): Martinez Vidales DO CHIEF COMPLAINT: Altered mental status HPI: The patient is an 82-year-old male who presented to the emergency department by ambulance for an evaluation of altered mental status. The patient was in the bathroom when he had a syncopal episode. He does have signs of trauma on his forehead. The patient has been confused ever since. The patient does not normally have confusion. He was recently started on Cipro for a urinary tract [facility]. The patient himself is not able to answer many questions. He does not admit to having any pain. He denies having any chest pain or difficulty breathing but was found to be hypoxic. ROS: See above HPI for pertinent positives & negatives. A total of 10 systems reviewed and were otherwise negative. PAST MEDICAL HISTORY: See Below PAST SURGICAL HISTORY: See Below FAMILY HISTORY: See Below SOCIAL HISTORY: See Below HOME MEDICATIONS: See Below ALLERGIES: See Below VITALS: See Below PHYSICAL EXAMINATION: GENERAL: The patient is awake and somewhat anxious appearing. He does not follow commands well. EARS, NOSE, MOUTH AND THROAT: The nose is without any evidence of any deformity. Mucous membranes are moist. There was deformity of the nose consistent with recent Mohs procedure. NECK: The neck is nontender and supple. RESPIRATORY: Diminished breath sounds are noted bilaterally. There is no tachypnea. CARDIOVASCULAR: Regular rate and rhythm noted there no murmurs rubs or gallops normal S1 normal S2. GASTROINTESTINAL: Abdomen was soft and distended. There is diffuse tenderness to palpation but no guarding rigidity. MUSCULOSKELETAL/EXTREMITIES: There is no evidence of gross deformity full range of motion is noted in the hips and shoulders. SKIN: The skin is cold and dry. There is no pedal edema. There was an abrasion to the forehead. NEUROLOGIC: Patient is awake and oriented to person place but not time. The patient is moving all extremities well. MEDICAL DECISION MAKING: The patient is an 82-year-old male who presented to the emergency department for an evaluation of ultra mental status. The patient was confusing hypotensive. Initially he's felt to be suffering from sepsis. [facility] The patient was recently started on Cipro for a urinary track infection noted in the jail. His symptoms became worse, and he had a syncopal episode, likely due to hypotension. The patient was treated with IV fluids, and IV. Anabiotic's in the emergency department. He was resuscitated in the usual fashion. He did require a central line. The patient was reevaluated multiple times. Further radiographic and laboratory studies were obtained given the patient's episode of syncope, he did strike his head. I discussed patient's condition [facility] you international tax manager [facility] agreed to evaluate the patient in the emergency department for further management and disposition. Triage Nursing notes reviewed. Prior medical records reviewed Vital Signs: reviewed and remarkable for initial hypotension Differential diagnosis: Vasovagal event, dehydration, infection, hypoglycemia, electrolyte abnormalities, cardiac sources, intracerebral event, pulmonary embolism, seizure, toxicologic, neurologic, as well as other pathologies. ER treatment provided: See below Diagnostics interpreted by me: ECG: EKG was obtained in the emergency department. My interpretation is sinus rhythm at 60 bpm. There is no ectopy. There is no acute ST segment abnormalities noted. This was compared to a tracing from March 17, 2023. There is a decrease in the overall rate compared to the earlier tracing otherwise no changes were noted. Cardiac Monitoring: An order was placed for continuous cardiac monitoring. The monitor shows a rate of 89 bpm with sinus rhythm Laboratory studies: As stated above and show below. Imaging studies: See below. Radiographic imaging was reviewed by myself Consultation(s): I discussed his case with Anita who [facility] ED COURSE: Procedures: Femoral Central Venous Catheter Indication: sepsis Catheter Type: triple lumen Location: left femoral vein Verbal consent was obtained after the risks and benefits were explained, including but not limited to intra-abdominal injury, vessel injury, bleeding, scarring, infection, pain, and bone/joint/nerve damage. At this time, the risks of the procedure are less than the risks of NOT performing the procedure. A time out was taken and the correct patient and site identified. The patient was placed in the supine position and the skin was prepped in the standard fashion with chlorhexidine and full sterile drapes applied. The proper landmarks were identified with ultrasound, anesthetized with 1% lidocaine without epinephrine, and the needle was inserted through the skin in the standard fashion. The needle was carefully advanced into blood vessel lumen with ultrasound guidance. The guidewire was placed uneventfully. The vessel is dilated and the catheter was placed. It was sutured into position. There was good blood return from all ports. The patient tolerated the procedure well and there were no complications. Critical Care: I have personally spent greater than 55 minutes of critical care time in the direct management of this patient. This includes bedside care, interpretation of diagnostic studies, and testing, discussion with consultants, patient, and family members, and other required patient management activities. This 55 minutes is in excess of all separately billable procedures. Past Med/Surg History Medical History (Updated 04/09/23 @ 09:10 by Martinez Vidales DO) CHF (congestive heart failure) COPD (chronic obstructive pulmonary disease) Diabetes High blood pressure Surgical History (Updated 04/08/23 @ 18:11 by Anita Mcconnell PA-C) H/O inguinal hernia repair History of appendectomy Hx laparoscopic cholecystectomy Family History Father Coronary heart disease Diabetes Social History Smoking Status: Former smoker Tobacco Type: Cigarettes Do You Dip or Chew Tobacco: No; Hx Alcohol Use: No Hx Substance Use: No Preferred Language: Luxembourgish Communication Ability: confusion Machine Puller Required: No Beliefs That Will Affect Care: None Current Living Situation: Other Current Living Situation Comment: ANNY melinda Feels Safe at Home: Yes Assistive Devices: Wheelchair Allergies Allergies Allergy/AdvReac Type Severity Reaction Status Date / Time Sulfa (Sulfonamide Allergy Unknown ON SCI Verified 04/08/23 16:54 Antibiotics) [facility] MED LIST Home Meds Home Medications Medication Instructions Recorded Confirmed albuterol sulfate 90 mcg/actuation 2 puff inhalation QID PRN 02/15/23 04/08/23 aerosol inhaler Shortness Of Breath aspirin 81 mg tablet,delayed 81 mg PO DAILY 02/15/23 04/08/23 release bumetanide 1 mg tablet 1 mg PO DAILY 02/15/23 04/08/23 ciclesonide 160 mcg/actuation 2 puff inhalation BID 02/15/23 04/08/23 aerosol inhaler (Alvesco) clopidogrel 75 mg tablet (Plavix) 75 mg PO DAILY 02/15/23 04/08/23 cranberry extract 250 mg tablet 250 mg PO DAILY 02/15/23 04/08/23 doxazosin 8 mg tablet 8 mg PO HS 02/15/23 04/08/23 fluoxetine 20 mg tablet 20 mg PO DAILY 02/15/23 04/08/23 insulin human U-100 NPH-regulr 12 unit subcut BID 02/15/23 04/08/23 70-30 mix 100 unit/mL subcutaneous susp (Novolin 70/30 U-100 Insulin) insulin regular human 100 unit/mL 1 sliding scale dose subcut 02/15/23 04/08/23 injection solution (Novolin R USEASDIRECTD Regular U-100 Insulin) isosorbide mononitrate 30 mg 30 mg PO DAILY 02/15/23 04/08/23 tablet,extended release 24 hr latanoprost 0.005 % eye drops 1 drp ophthalmic (eye) PM 02/15/23 04/08/23 lisinopril 40 mg tablet 40 mg PO DAILY 02/15/23 04/08/23 menthol 0.44 %-zinc oxide 20.6 % 1 applic topical QID PRN flare ups 02/15/23 04/08/23 topical ointment (Calmoseptine) metoprolol tartrate 50 mg tablet 50 mg PO BID 02/15/23 04/08/23 rosuvastatin 10 mg tablet 10 mg PO DAILY 02/15/23 04/08/23 acetaminophen 500 mg tablet 500 mg PO TID PRN Pain 04/08/23 04/08/23 (Tylenol Extra Strength) ciprofloxacin HCl 500 mg tablet 500 mg PO Q12H 04/08/23 04/08/23 docusate sodium 100 mg capsule 100 mg PO BID 04/08/23 04/08/23 ferrous gluconate 324 mg (38 mg 324 mg PO DAILY 04/08/23 04/08/23 iron) tablet Results & Data (ED) Vital Signs Vital Signs - 24 hr 04/08/23 14:21 04/08/23 14:23 04/08/23 14:33 Temperature 36.4 C L Temperature Source Oral Pulse Rate 129 H 72 Pulse Rate from SpO2 Sensor Respiratory Rate 15 Blood Pressure 67/41 L Blood Pressure Mean 49 Pulse Oximetry 93 86 L Oxygen Delivery Method Room Air Room Air Oxygen Flow Rate 0 Sepsis Recent Fever Within 48 Hours Yes Sepsis New/Unexplained Change in Mental Status Yes Sepsis Action Taken by Nursing Physician Notified Oxygen Flow Rate - Titration 3 Pulse Oximetry Post Tiitration 94 04/08/23 14:33 04/08/23 14:21 04/08/23 14:30 Temperature Temperature Source Oral Pulse Rate 138 H 126 H Pulse Rate from SpO2 Sensor 66 Respiratory Rate 15 17 Blood Pressure Blood Pressure Mean Pulse Oximetry 93 Oxygen Delivery Method Oxygen Flow Rate Sepsis Recent Fever Within 48 Hours Sepsis New/Unexplained Change in Mental Status Sepsis Action Taken by Nursing Oxygen Flow Rate - Titration Pulse Oximetry Post Tiitration 04/08/23 14:35 04/08/23 14:35 04/08/23 14:40 Temperature Temperature Source Pulse Rate 138 H 131 H Pulse Rate from SpO2 Sensor 70 65 Respiratory Rate 20 15 Blood Pressure 59/40 L Blood Pressure Mean 42 Pulse Oximetry 97 91 Oxygen Delivery Method Oxygen Flow Rate Sepsis Recent Fever Within 48 Hours Sepsis New/Unexplained Change in Mental Status Sepsis Action Taken by Nursing Oxygen Flow Rate - Titration Pulse Oximetry Post Tiitration 04/08/23 14:45 04/08/23 14:50 04/08/23 14:51 Temperature Temperature Source Pulse Rate 59 L 63 56 L Pulse Rate from SpO2 Sensor 60 65 58 L Respiratory Rate 14 14 15 Blood Pressure Blood Pressure Mean Pulse Oximetry 95 95 97 Oxygen Delivery Method Oxygen Flow Rate Sepsis Recent Fever Within 48 Hours Sepsis New/Unexplained Change in Mental Status Sepsis Action Taken by Nursing Oxygen Flow Rate - Titration Pulse Oximetry Post Tiitration 04/08/23 14:51 04/08/23 14:55 04/08/23 15:00 Temperature Temperature Source Pulse Rate 61 Pulse Rate from SpO2 Sensor 60 Respiratory Rate 15 Blood Pressure 78/41 L 75/44 L Blood Pressure Mean 48 60 Pulse Oximetry 97 Oxygen Delivery Method Oxygen Flow Rate Sepsis Recent Fever Within 48 Hours Sepsis New/Unexplained Change in Mental Status Sepsis Action Taken by Nursing Oxygen Flow Rate - Titration Pulse Oximetry Post Tiitration 04/08/23 15:00 04/08/23 15:05 04/08/23 15:10 Temperature Temperature Source Pulse Rate 58 L 58 L 56 L Pulse Rate from SpO2 Sensor 59 L 59 L 57 L Respiratory Rate 16 18 13 Blood Pressure Blood Pressure Mean Pulse Oximetry 98 97 97 Oxygen Delivery Method Oxygen Flow Rate Sepsis Recent Fever Within 48 Hours Sepsis New/Unexplained Change in Mental Status Sepsis Action Taken by Nursing Oxygen Flow Rate - Titration Pulse Oximetry Post Tiitration 04/08/23 15:15 04/08/23 15:15 04/08/23 15:20 Temperature Temperature Source Pulse Rate 56 L 66 Pulse Rate from SpO2 Sensor 57 L 62 Respiratory Rate 17 16 Blood Pressure 88/49 L Blood Pressure Mean 55 Pulse Oximetry 97 97 Oxygen Delivery Method Oxygen Flow Rate Sepsis Recent Fever Within 48 Hours Sepsis New/Unexplained Change in Mental Status Sepsis Action Taken by Nursing Oxygen Flow Rate - Titration Pulse Oximetry Post Tiitration 04/08/23 15:25 04/08/23 15:30 04/08/23 15:30 Temperature Temperature Source Pulse Rate 66 64 Pulse Rate from SpO2 Sensor 66 64 Respiratory Rate 14 15 Blood Pressure 103/48 L Blood Pressure Mean 60 Pulse Oximetry 99 99 Oxygen Delivery Method Oxygen Flow Rate Sepsis Recent Fever Within 48 Hours Sepsis New/Unexplained Change in Mental Status Sepsis Action Taken by Nursing Oxygen Flow Rate - Titration Pulse Oximetry Post Tiitration 04/08/23 15:35 04/08/23 15:40 04/08/23 15:45 Temperature Temperature Source Pulse Rate 64 60 Pulse Rate from SpO2 Sensor 65 61 Respiratory Rate 13 15 Blood Pressure 101/63 Blood Pressure Mean 69 Pulse Oximetry 94 98 Oxygen Delivery Method Oxygen Flow Rate Sepsis Recent Fever Within 48 Hours Sepsis New/Unexplained Change in Mental Status Sepsis Action Taken by Nursing Oxygen Flow Rate - Titration Pulse Oximetry Post Tiitration 04/08/23 15:45 04/08/23 15:50 04/08/23 16:15 Temperature Temperature Source Pulse Rate 61 60 68 Pulse Rate from SpO2 Sensor 61 60 Respiratory Rate 14 15 12 Blood Pressure Blood Pressure Mean Pulse Oximetry 100 98 Oxygen Delivery Method Oxygen Flow Rate Sepsis Recent Fever Within 48 Hours Sepsis New/Unexplained Change in Mental Status Sepsis Action Taken by Nursing Oxygen Flow Rate - Titration Pulse Oximetry Post Tiitration 04/08/23 16:17 04/08/23 16:17 04/08/23 16:20 Temperature Temperature Source Pulse Rate 69 68 Pulse Rate from SpO2 Sensor 68 67 Respiratory Rate 13 13 Blood Pressure 105/63 Blood Pressure Mean 96 Pulse Oximetry 91 94 Oxygen Delivery Method Oxygen Flow Rate Sepsis Recent Fever Within 48 Hours Sepsis New/Unexplained Change in Mental Status Sepsis Action Taken by Nursing Oxygen Flow Rate - Titration Pulse Oximetry Post Tiitration 04/08/23 16:25 04/08/23 16:30 04/08/23 16:31 Temperature Temperature Source Pulse Rate 65 64 63 Pulse Rate from SpO2 Sensor 66 65 62 Respiratory Rate 16 14 12 Blood Pressure Blood Pressure Mean Pulse Oximetry 95 94 96 Oxygen Delivery Method Oxygen Flow Rate Sepsis Recent Fever Within 48 Hours Sepsis New/Unexplained Change in Mental Status Sepsis Action Taken by Nursing Oxygen Flow Rate - Titration Pulse Oximetry Post Tiitration 04/08/23 16:31 04/08/23 16:35 04/08/23 16:40 Temperature Temperature Source Pulse Rate 63 67 Pulse Rate from SpO2 Sensor 61 65 Respiratory Rate 12 15 Blood Pressure 107/62 Blood Pressure Mean 76 Pulse Oximetry 96 95 Oxygen Delivery Method Oxygen Flow Rate Sepsis Recent Fever Within 48 Hours Sepsis New/Unexplained Change in Mental Status Sepsis Action Taken by Nursing Oxygen Flow Rate - Titration Pulse Oximetry Post Tiitration 04/08/23 16:45 04/08/23 16:45 04/08/23 16:50 Temperature Temperature Source Pulse Rate 61 59 L Pulse Rate from SpO2 Sensor 61 60 Respiratory Rate 16 12 Blood Pressure 100/65 Blood Pressure Mean 88 Pulse Oximetry 95 95 Oxygen Delivery Method Oxygen Flow Rate Sepsis Recent Fever Within 48 Hours Sepsis New/Unexplained Change in Mental Status Sepsis Action Taken by Nursing Oxygen Flow Rate - Titration Pulse Oximetry Post Tiitration 04/08/23 16:55 04/08/23 17:00 04/08/23 17:00 Temperature Temperature Source Pulse Rate 68 53 L Pulse Rate from SpO2 Sensor 62 58 L Respiratory Rate 17 17 Blood Pressure 122/67 Blood Pressure Mean 99 Pulse Oximetry 94 92 Oxygen Delivery Method Oxygen Flow Rate Sepsis Recent Fever Within 48 Hours Sepsis New/Unexplained Change in Mental Status Sepsis Action Taken by Nursing Oxygen Flow Rate - Titration Pulse Oximetry Post Tiitration 04/08/23 17:05 04/08/23 17:10 04/08/23 17:15 Temperature Temperature Source Pulse Rate 66 53 L Pulse Rate from SpO2 Sensor 64 60 Respiratory Rate 14 12 Blood Pressure 121/61 Blood Pressure Mean 86 Pulse Oximetry 97 97 Oxygen Delivery Method Oxygen Flow Rate Sepsis Recent Fever Within 48 Hours Sepsis New/Unexplained Change in Mental Status Sepsis Action Taken by Nursing Oxygen Flow Rate - Titration Pulse Oximetry Post Tiitration 04/08/23 17:15 04/08/23 17:20 04/08/23 17:25 Temperature Temperature Source Pulse Rate 63 72 56 L Pulse Rate from SpO2 Sensor 61 60 55 L Respiratory Rate 12 19 12 Blood Pressure Blood Pressure Mean Pulse Oximetry 93 91 93 Oxygen Delivery Method Oxygen Flow Rate Sepsis Recent Fever Within 48 Hours Sepsis New/Unexplained Change in Mental Status Sepsis Action Taken by Nursing Oxygen Flow Rate - Titration Pulse Oximetry Post Tiitration 04/08/23 17:30 04/08/23 17:30 Temperature Temperature Source Pulse Rate 63 Pulse Rate from SpO2 Sensor 55 L Respiratory Rate 13 Blood Pressure 114/65 Blood Pressure Mean 79 Pulse Oximetry 95 Oxygen Delivery Method Oxygen Flow Rate Sepsis Recent Fever Within 48 Hours Sepsis New/Unexplained Change in Mental Status Sepsis Action Taken by Nursing Oxygen Flow Rate - Titration Pulse Oximetry Post Tiitration Home Medications Current Medication List: was personally reviewed by me Laboratory Data Attestation: I reviewed the patient's lab results. 04/08/23 14:35 04/08/23 14:35 Lab Results 04/08/23 04/08/23 04/08/23 Range/Units 14:32 14:35 14:35 WBC 6.88 (4.8-10.8) K/ul RBC 4.13 L (4.70-6.10) M/uL Hgb 11.8 L (14.0-18.0) g/dl POC Hgb (14.0-18.0) g/dl Hct 35.1 L (42.0-52.0) % POC Hct (42-52) % MCV 85.0 (80.0-100.0) fL MCH 28.6 (25.0-34.0) pg MCHC 33.6 (32.0-36.0) g/dL RDW Std Deviation 46.8 H (36.4-46.3) fL RDW Coeff of Sandrita 15.1 H (11.5-14.5) % Plt Count 347 (130-400) K/uL MPV 10.7 (9.4-12.4) fL Immature Gran % (Auto) 0.3 % Neut % (Auto) 61.7 % Lymph % (Auto) 21.2 % [place] % (Auto) 13.8 % Eos % (Auto) 2.3 % Baso % (Auto) 0.7 % Neut # (Auto) 4.24 (1.40-6.50) K/uL Lymph # (Auto) 1.46 (1.2-3.4) K/uL [place] # (Auto) 0.95 H (0.11-0.59) K/uL Eos # (Auto) 0.16 (0-0.50) K/uL Baso # (Auto) 0.05 (0-0.2) K/uL Immature Gran # (Auto) 0.02 (0.01-0.20) K/uL PT 11.9 (9.0-12.0) Seconds INR 1.1 (0.9-1.1) APTT 25.9 (21.0-31.0) Seconds PTT Ratio 0.9 VBG pH (7.36-7.41) VBG pCO2 (38-50) mmHg VBG pO2 mmHg VBG HCO3 mmol/L VBG O2 Saturation % VBG Base Excess mEq/L POC Sodium (135-144) mmol/L Sodium (136-145) mmol/L POC Potassium (3.3-5.0) mmol/L Potassium (3.5-5.1) mmol/L POC Chloride (101-112) mmol/L Chloride (98-107) mmol/L Carbon Dioxide (21-32) mmol/L POC Total CO2 (24-31) mmol/L Anion Gap (3-11) POC Anion Gap (16-25) mmol/L POC BUN (7-18) mg/dl BUN (6-23) mg/dl Creatinine (0.6-1.4) mg/dl POC Creatinine (0.6-1.3) mg/dl Est Cr Clr Drug Dosing Est GFR ( Amer) ml/min Est GFR (Non-Af Amer) ml/min BUN/Creatinine Ratio (10-20) Glucose (70-99(Fasting)) mg/dl POC Glucose (other) (70-99) mg/dl Lactate (0.4-2.0) mmol/L Calcium (8.6-10.3) mg/dl POC Ioniz Calcium Donell (1.12-1.32) mmol/l Magnesium (1.7-2.4) mg/dl Total Bilirubin (0.2-1.0) mg/dl Direct Bilirubin (0-0.2) mg/dl AST (13-39) U/L ALT (7-52) U/L Alkaline Phosphatase (34-104) U/L Troponin I High Sens (0-20) pg/ml Total Protein (6.0-8.3) gm/dl Albumin (3.4-5.0) gm/dl Procalcitonin (0-0.5) ng/ml Urine Color Urine Appearance (Clear) Urine pH (4.5-7.5) Ur Specific Moore (1.000-1.030) Urine Protein (Negative) Urine Glucose (UA) (Negative) Urine Ketones (Negative) Urine Blood (Negative) Urine Nitrite (Negative) Urine Bilirubin (Negative) Urine Urobilinogen (Negative) Ur Leukocyte Esterase (Negative) Urine WBC (Auto) (0-5) /hpf Urine RBC (Auto) (0-4) /hpf U Hyaline Cast (Auto) (0-5) /lpf U Epithel Cells (Auto) (0-5) /lpf Urine Bacteria (Auto) (Negative) Urine Opiates Screen (Neg) Ur Methadone, Qual (Neg) Urine Barbiturates (Neg) Ur Phencyclidine (PCP) (Neg) U Amphetamin/Meth Scrn (Neg) MDMA (Ecstasy) Screen (Neg) U Benzodiazepines Scrn (Neg) Ur Cocaine Metabolite (Neg) U Marijuana (THC) Screen (Neg) SARS-CoV-2 (PCR) NEGATIVE (Negative) Influenza Type A (PCR) Negative (Neg) Influenza Type B (PCR) Negative (Neg) RSV (RT-PCR) Negative (Neg) Blood Type Antibody Screen 04/08/23 04/08/23 04/08/23 Range/Units 14:35 14:35 14:35 WBC (4.8-10.8) K/ul RBC (4.70-6.10) M/uL Hgb (14.0-18.0) g/dl POC Hgb (14.0-18.0) g/dl Hct (42.0-52.0) % POC Hct (42-52) % MCV (80.0-100.0) fL MCH (25.0-34.0) pg MCHC (32.0-36.0) g/dL RDW Std Deviation (36.4-46.3) fL RDW Coeff of Sandrita (11.5-14.5) % Plt Count (130-400) K/uL MPV (9.4-12.4) fL Immature Gran % (Auto) % Neut % (Auto) % Lymph % (Auto) % [place] % (Auto) % Eos % (Auto) % Baso % (Auto) % Neut # (Auto) (1.40-6.50) K/uL Lymph # (Auto) (1.2-3.4) K/uL [place] # (Auto) (0.11-0.59) K/uL Eos # (Auto) (0-0.50) K/uL Baso # (Auto) (0-0.2) K/uL Immature Gran # (Auto) (0.01-0.20) K/uL PT (9.0-12.0) Seconds INR (0.9-1.1) APTT (21.0-31.0) Seconds PTT Ratio VBG pH (7.36-7.41) VBG pCO2 (38-50) mmHg VBG pO2 mmHg VBG HCO3 mmol/L VBG O2 Saturation % VBG Base Excess mEq/L POC Sodium (135-144) mmol/L Sodium 136 (136-145) mmol/L POC Potassium (3.3-5.0) mmol/L Potassium 3.9 (3.5-5.1) mmol/L POC Chloride (101-112) mmol/L Chloride 102 (98-107) mmol/L Carbon Dioxide 26 (21-32) mmol/L POC Total CO2 (24-31) mmol/L Anion Gap 8 (3-11) POC Anion Gap (16-25) mmol/L POC BUN (7-18) mg/dl BUN 21 (6-23) mg/dl Creatinine 1.61 H (0.6-1.4) mg/dl POC Creatinine (0.6-1.3) mg/dl Est Cr Clr Drug Dosing Not Reportable Est GFR ( Amer) 45.2 ml/min Est GFR (Non-Af Amer) 39.0 ml/min BUN/Creatinine Ratio 13.0 (10-20) Glucose 119 H (70-99(Fasting)) mg/dl POC Glucose (other) (70-99) mg/dl Lactate 3.1 H* (0.4-2.0) mmol/L Calcium 8.5 L (8.6-10.3) mg/dl POC Ioniz Calcium Donell (1.12-1.32) mmol/l Magnesium 1.8 (1.7-2.4) mg/dl Total Bilirubin 0.4 (0.2-1.0) mg/dl Direct Bilirubin 0.1 (0-0.2) mg/dl AST 18 (13-39) U/L ALT 9 (7-52) U/L Alkaline Phosphatase 72 (34-104) U/L Troponin I High Sens 6.0 (0-20) pg/ml Total Protein 6.3 (6.0-8.3) gm/dl Albumin 3.1 L (3.4-5.0) gm/dl Procalcitonin < 0.05 (0-0.5) ng/ml Urine Color Urine Appearance (Clear) Urine pH (4.5-7.5) Ur Specific Moore (1.000-1.030) Urine Protein (Negative) Urine Glucose (UA) (Negative) Urine Ketones (Negative) Urine Blood (Negative) Urine Nitrite (Negative) Urine Bilirubin (Negative) Urine Urobilinogen (Negative) Ur Leukocyte Esterase (Negative) Urine WBC (Auto) (0-5) /hpf Urine RBC (Auto) (0-4) /hpf U Hyaline Cast (Auto) (0-5) /lpf U Epithel Cells (Auto) (0-5) /lpf Urine Bacteria (Auto) (Negative) Urine Opiates Screen (Neg) Ur Methadone, Qual (Neg) Urine Barbiturates (Neg) Ur Phencyclidine (PCP) (Neg) U Amphetamin/Meth Scrn (Neg) MDMA (Ecstasy) Screen (Neg) U Benzodiazepines Scrn (Neg) Ur Cocaine Metabolite (Neg) U Marijuana (THC) Screen (Neg) SARS-CoV-2 (PCR) (Negative) Influenza Type A (PCR) (Neg) Influenza Type B (PCR) (Neg) RSV (RT-PCR) (Neg) Blood Type Antibody Screen 04/08/23 04/08/23 04/08/23 Range/Units 14:50 14:52 14:52 WBC (4.8-10.8) K/ul RBC (4.70-6.10) M/uL Hgb (14.0-18.0) g/dl POC Hgb 12.2 L (14.0-18.0) g/dl Hct (42.0-52.0) % POC Hct 36 L (42-52) % MCV (80.0-100.0) fL MCH (25.0-34.0) pg MCHC (32.0-36.0) g/dL RDW Std Deviation (36.4-46.3) fL RDW Coeff of Sandrita (11.5-14.5) % Plt Count (130-400) K/uL MPV (9.4-12.4) fL Immature Gran % (Auto) % Neut % (Auto) % Lymph % (Auto) % [place] % (Auto) % Eos % (Auto) % Baso % (Auto) % Neut # (Auto) (1.40-6.50) K/uL Lymph # (Auto) (1.2-3.4) K/uL [place] # (Auto) (0.11-0.59) K/uL Eos # (Auto) (0-0.50) K/uL Baso # (Auto) (0-0.2) K/uL Immature Gran # (Auto) (0.01-0.20) K/uL PT (9.0-12.0) Seconds INR (0.9-1.1) APTT (21.0-31.0) Seconds PTT Ratio VBG pH 7.34 L (7.36-7.41) VBG pCO2 43 (38-50) mmHg VBG pO2 38 mmHg VBG HCO3 23 mmol/L VBG O2 Saturation < 60.0 % VBG Base Excess -2.6 mEq/L POC Sodium 137 (135-144) mmol/L Sodium (136-145) mmol/L POC Potassium 3.9 (3.3-5.0) mmol/L Potassium (3.5-5.1) mmol/L POC Chloride 101 (101-112) mmol/L Chloride (98-107) mmol/L Carbon Dioxide (21-32) mmol/L POC Total CO2 25 (24-31) mmol/L Anion Gap (3-11) POC Anion Gap 15.0 L (16-25) mmol/L POC BUN 22 H (7-18) mg/dl BUN (6-23) mg/dl Creatinine (0.6-1.4) mg/dl POC Creatinine 1.8 H (0.6-1.3) mg/dl Est Cr Clr Drug Dosing Est GFR ( Amer) ml/min Est GFR (Non-Af Amer) ml/min BUN/Creatinine Ratio (10-20) Glucose (70-99(Fasting)) mg/dl POC Glucose (other) 118 H (70-99) mg/dl Lactate (0.4-2.0) mmol/L Calcium (8.6-10.3) mg/dl POC Ioniz Calcium Donell 1.02 L (1.12-1.32) mmol/l Magnesium (1.7-2.4) mg/dl Total Bilirubin (0.2-1.0) mg/dl Direct Bilirubin (0-0.2) mg/dl AST (13-39) U/L ALT (7-52) U/L Alkaline Phosphatase (34-104) U/L Troponin I High Sens (0-20) pg/ml Total Protein (6.0-8.3) gm/dl Albumin (3.4-5.0) gm/dl Procalcitonin (0-0.5) ng/ml Urine Color Urine Appearance (Clear) Urine pH (4.5-7.5) Ur Specific Moore (1.000-1.030) Urine Protein (Negative) Urine Glucose (UA) (Negative) Urine Ketones (Negative) Urine Blood (Negative) Urine Nitrite (Negative) Urine Bilirubin (Negative) Urine Urobilinogen (Negative) Ur Leukocyte Esterase (Negative) Urine WBC (Auto) (0-5) /hpf Urine RBC (Auto) (0-4) /hpf U Hyaline Cast (Auto) (0-5) /lpf U Epithel Cells (Auto) (0-5) /lpf Urine Bacteria (Auto) (Negative) Urine Opiates Screen (Neg) Ur Methadone, Qual (Neg) Urine Barbiturates (Neg) Ur Phencyclidine (PCP) (Neg) U Amphetamin/Meth Scrn (Neg) MDMA (Ecstasy) Screen (Neg) U Benzodiazepines Scrn (Neg) Ur Cocaine Metabolite (Neg) U Marijuana (THC) Screen (Neg) SARS-CoV-2 (PCR) (Negative) Influenza Type A (PCR) (Neg) Influenza Type B (PCR) (Neg) RSV (RT-PCR) (Neg) Blood Type A Positive Antibody Screen NEGATIVE 04/08/23 04/08/23 04/08/23 Range/Units 16:25 16:25 17:30 WBC (4.8-10.8) K/ul RBC (4.70-6.10) M/uL Hgb (14.0-18.0) g/dl POC Hgb (14.0-18.0) g/dl Hct (42.0-52.0) % POC Hct (42-52) % MCV (80.0-100.0) fL MCH (25.0-34.0) pg MCHC (32.0-36.0) g/dL RDW Std Deviation (36.4-46.3) fL RDW Coeff of Sandrita (11.5-14.5) % Plt Count (130-400) K/uL MPV (9.4-12.4) fL Immature Gran % (Auto) % Neut % (Auto) % Lymph % (Auto) % [place] % (Auto) % Eos % (Auto) % Baso % (Auto) % Neut # (Auto) (1.40-6.50) K/uL Lymph # (Auto) (1.2-3.4) K/uL [place] # (Auto) (0.11-0.59) K/uL Eos # (Auto) (0-0.50) K/uL Baso # (Auto) (0-0.2) K/uL Immature Gran # (Auto) (0.01-0.20) K/uL PT (9.0-12.0) Seconds INR (0.9-1.1) APTT (21.0-31.0) Seconds PTT Ratio VBG pH (7.36-7.41) VBG pCO2 (38-50) mmHg VBG pO2 mmHg VBG HCO3 mmol/L VBG O2 Saturation % VBG Base Excess mEq/L POC Sodium (135-144) mmol/L Sodium (136-145) mmol/L POC Potassium (3.3-5.0) mmol/L Potassium (3.5-5.1) mmol/L POC Chloride (101-112) mmol/L Chloride (98-107) mmol/L Carbon Dioxide (21-32) mmol/L POC Total CO2 (24-31) mmol/L Anion Gap (3-11) POC Anion Gap (16-25) mmol/L POC BUN (7-18) mg/dl BUN (6-23) mg/dl Creatinine (0.6-1.4) mg/dl POC Creatinine (0.6-1.3) mg/dl Est Cr Clr Drug Dosing Est GFR ( Amer) ml/min Est GFR (Non-Af Amer) ml/min BUN/Creatinine Ratio (10-20) Glucose (70-99(Fasting)) mg/dl POC Glucose (other) (70-99) mg/dl Lactate 1.7 (0.4-2.0) mmol/L Calcium (8.6-10.3) mg/dl POC Ioniz Calcium Donell (1.12-1.32) mmol/l Magnesium (1.7-2.4) mg/dl Total Bilirubin (0.2-1.0) mg/dl Direct Bilirubin (0-0.2) mg/dl AST (13-39) U/L ALT (7-52) U/L Alkaline Phosphatase (34-104) U/L Troponin I High Sens (0-20) pg/ml Total Protein (6.0-8.3) gm/dl Albumin (3.4-5.0) gm/dl Procalcitonin (0-0.5) ng/ml Urine Color Pe[place] Urine Appearance Clear (Clear) Urine pH 7.0 (4.5-7.5) Ur Specific Moore 1.034 H (1.000-1.030) Urine Protein Negative (Negative) Urine Glucose (UA) Negative (Negative) Urine Ketones Negative (Negative) Urine Blood 3+ H (Negative) Urine Nitrite Negative (Negative) Urine Bilirubin Negative (Negative) Urine Urobilinogen Negative (Negative) Ur Leukocyte Esterase 2+ H (Negative) Urine WBC (Auto) >30 H (0-5) /hpf Urine RBC (Auto) >30 H (0-4) /hpf U Hyaline Cast (Auto) 1-5 (0-5) /lpf U Epithel Cells (Auto) 20-30 H (0-5) /lpf Urine Bacteria (Auto) Negative (Negative) Urine Opiates Screen Neg (Neg) Ur Methadone, Qual Neg (Neg) Urine Barbiturates Neg (Neg) Ur Phencyclidine (PCP) Neg (Neg) U Amphetamin/Meth Scrn Neg (Neg) MDMA (Ecstasy) Screen Neg (Neg) U Benzodiazepines Scrn Neg (Neg) Ur Cocaine Metabolite Neg (Neg) U Marijuana (THC) Screen Neg (Neg) SARS-CoV-2 (PCR) (Negative) Influenza Type A (PCR) (Neg) Influenza Type B (PCR) (Neg) RSV (RT-PCR) (Neg) Blood Type Antibody Screen Administered Medications Aspirin (Aspirin 81 Mg Ectab) 81 mg PO DAILY [facility] Stop: 05/09/23 08:59 Last Admin: 04/09/23 08:46 Dose: 81 mg Documented By: CAT Clopidogrel Bisulfate (Clopidogrel Bisulfate 75 Mg Tab) 75 mg PO DAILY [facility] Stop: 05/09/23 08:59 Last Admin: 04/09/23 08:46 Dose: 75 mg Documented By: CAT Docusate Sodium (Docusate Sodium 100 Mg Cap) 100 mg PO BID [facility] Stop: 05/08/23 20:59 Last Admin: 04/09/23 08:46 Dose: 100 mg Documented By: Admin: 04/08/23 20:03 Dose: 100 mg Documented By: WANDA Doxazosin Mesylate (Doxazosin Mesylate 4 Mg Tab) 8 mg PO HS [facility] Stop: 05/08/23 20:59 Last Admin: 04/08/23 20:03 Dose: 8 mg Documented By: WANDA Fluoxetine HCl (Fluoxetine Hcl 20 Mg Cap) 20 mg PO DAILY [facility] Stop: 05/09/23 08:59 Last Admin: 04/09/23 08:46 Dose: 20 mg Documented By: CAT Heparin Sodium (Porcine) (Heparin Sod 5,000 Unit/0.5 Ml Vial) 5,000 units SQ Q8 [facility] Stop: 05/08/23 21:59 Last Admin: 04/09/23 05:05 Dose: 5,000 units Documented By: Admin: 04/08/23 20:09 Dose: 5,000 units Documented By: WANDA Piperacillin Sod/Tazobactam (Sod 4.5 gm/ Dextrose) 120 mls @ 30 mls/hr IV Q8H [facility]; Protocol Stop: 04/18/23 20:59 Last Admin: 04/09/23 05:00 Dose: 30 mls/hr Documented By: Infusion: 04/09/23 00:08 Dose: 0 mls/hr Documented By: Admin: 04/08/23 20:01 Dose: 30 mls/hr Documented By: WANDA Insulin Aspart (Insulin Aspart Per Unit Charge) 0 units SC ACHS [facility] Stop: 05/08/23 20:59 Last Admin: 04/09/23 08:45 Dose: 6 units Documented By: CAT Co-signed By: EMA Admin: 04/08/23 21:12 Dose: 1 units Documented By: WANDA Co-signed By: NICOLETTE Metoprolol Tartrate (Metoprolol Tartrate 25 Mg Tab) 25 mg PO BID [facility] Stop: 05/08/23 20:59 Last Admin: 04/09/23 08:46 Dose: 25 mg Documented By: Admin: 04/08/23 20:04 Dose: 25 mg Documented By: WANDA Rosuvastatin Calcium (Rosuvastatin Calcium 10 Mg Tab) 10 mg PO DAILY [facility] Stop: 05/09/23 08:59 Last Admin: 04/09/23 08:47 Dose: 10 mg Documented By: CAT Discontinued Medications Sodium Chloride (Nss 1000ml) 1,000 mls @ 999 mls/hr IV .Q1H1M ONE Stop: 04/08/23 15:26 Last Infusion: 04/08/23 15:41 Dose: 0 mls/hr Documented By: Admin: 04/08/23 14:30 Dose: 999 mls/hr Documented By: MARGO Piperacillin Sod/Tazobactam Sod (Zosyn) 4.5 gm in 120 mls @ 240 mls/hr IV NOW ONE Stop: 04/08/23 14:55 Last Infusion: 04/08/23 15:41 Dose: 0 mls/hr Documented By: Admin: 04/08/23 14:45 Dose: 240 mls/hr Documented By: MARGO Sodium Chloride (Nss 1000ml) 1,000 mls @ 999 mls/hr IV .Q1H1M ONE Stop: 04/08/23 15:52 Last Infusion: 04/08/23 16:22 Dose: 0 mls/hr Documented By: Admin: 04/08/23 14:56 Dose: 999 mls/hr Documented By: MARGO Sodium Chloride (Nss 1000ml) 1,000 mls @ 999 mls/hr IV .Q1H1M ONE Stop: 04/08/23 17:42 Last Infusion: 04/08/23 17:53 Dose: 0 mls/hr Documented By: Admin: 04/08/23 16:44 Dose: 999 mls/hr Documented By: MARGO Insulin Glargine (Lantus Per Unit Charge) 0 units SQ BID [facility]; Protocol Stop: 05/08/23 20:59 Last Admin: 04/08/23 21:13 Dose: 5 units Documented By: WANDA Co-signed By: NICOLETTE Miscellaneous (Patient's Height Needed) 1 each N/A Q2H [facility] Stop: 05/08/23 20:59 Last Admin: 04/09/23 07:27 Dose: Not Given Documented By: Admin: 04/09/23 07:26 Dose: Not Given Documented By: Admin: 04/09/23 07:26 Dose: Not Given Documented By: Admin: 04/09/23 07:26 Dose: Not Given Documented By: Admin: 04/09/23 07:13 Dose: Not Given Documented By: Admin: 04/08/23 21:20 Dose: 1 each Documented By: WANDA Imaging Data Attestation: I personally reviewed and interpreted this imaging study as follows: My Impression: CT of the head was obtained in the emergency department. My interpretation is no intracranial hemorrhage or mass effect, final report below. CT of the abdomen and pelvis was obtained in the emergency department. My interpretation is no free air or obstruction, final report below. Radiologist's Impression: Abdomen/Pelvis CT 04/08/23 14:26 CT abd pelvis IV con only CLINICAL HISTORY: syncope TECHNIQUE: Helical axial images of the abdomen and pelvis were obtained and displayed. Automated dose lowering techniques and/or adjustment according to patient size were utilized for this exam. This exam was performed with intravenous contrast. COMPARISON: Comparison is made to CT abdomen pelvis 03/17/2023 FINDINGS: Lower chest: Bibasilar atelectasis versus scarring is seen. Liver: Unremarkable. No focal lesions are seen. Gallbladder and biliary tree: Patient is status post cholecystectomy. No intra- or extrahepatic biliary ductal dilation. Pancreas: Unremarkable, no focal lesions. Spleen: Unremarkable. Adrenals: Unremarkable. Kidneys and ureters: Unremarkable. 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 Bowel: Diverticulosis is seen without diverticulitis. The appendix is normal. Lymph nodes Retroperitoneal: Unremarkable. Pelvic: Unremarkable. Mesenteric: Unremarkable. Peritoneum: Normal. Vessels: Atherosclerotic calcifications are seen. Abdominal wall: Postsurgical changes are seen in the bilateral inguinal region compatible with hernia repair. Bones: Degenerative changes in the visualized spine. IMPRESSION: 1. No acute abnormalities. 2. Redemonstration of low-lying Linares catheter balloon which may be within the prostatic urethra. ACT 112: Negative or not required by law. Electronically signed by: Juan Pennington M.D. 04/08/2023 4:[address] 04/08/23 14:26 CT cervical spine wo con CT DOSE: 3293.94 mGy.cm CLINICAL HISTORY: 82 years-old Male with symcope. Acute neck injury status post fall COMPARISON: Head CT of same day, chest CT 02/15/2023. TECHNIQUE: Multiple axial CT images of the cervical spine were obtained without contrast. A dose lowering technique was utilized adhering to the principles of ALARA. FINDINGS: Advanced multilevel degenerative changes. Unchanged mild chronic superior endplate compression at T1. No acute cervical spine fracture or subluxation identified. Small left mastoid effusion. The cervical soft tissues appear unremarkable. The visualized lung apices appear clear. IMPRESSION: No acute cervical spine fracture or subluxation. ACT 112: Negative or not required by law. The above report was generated using voice recognition software. It may contain grammatical, syntax or spelling errors. Electronically signed by: Hayden Garrett M.D. 04/08/2023 4:39 PM Chest CTA 04/08/23 14:26 CT angio chest PE protocol HISTORY: 82 years-old Male with PE. Acute shortness breath with syncope TECHNIQUE: Multiple CTA images of the chest were obtained after the intravenous administration of 115 ml Optiray. Coronal and sagittal MIPS were obtained from the axial data set and were submitted for review. All measurements were obtained according to NASCET criteria. A dose lowering technique was utilized adhering to the principles of ALARA. COMPARISON: CT abdomen and pelvis study of same day, chest CT 02/15/2023 FINDINGS: CTA: Mild cardiomegaly with trace pericardial effusion. Extensive coronary artery calcifications with atherosclerosis of the thoracic aorta. Limited evaluation of the pulmonary arterial tree secondary to respiratory motion and contrast bolus timing. No central pulmonary emboli are identified. CT CHEST: Heterogeneity of the thyroid. No pathologically enlarged lymph nodes. No pneumothorax, pleural effusion, airspace consolidation or pulmonary edema. Emphysema with mild intralobular septal thickening. Subsegmental bibasilar densities favor atelectasis. No suspicious pulmonary nodule or masses identified. Mild tracheobronchial secretions. No acute process of the imaged upper abdomen. Moderate hiatal hernia. Cholec ystectomy. Nonspecific trace edema within the mikki hepatis. Unremarkable soft tissues. No acute fracture identified. Asymmetry of the sternoclavicular joints is similar to prior. IMPRESSION: 1. No acute posttraumatic intrathoracic abnormality. 2. No acute fracture or pneumothorax identified. 3. Cardiomegaly with emphysema. 4. No pulmonary emboli identified. 5. Additional findings as above. ACT 112: Negative or not required by law. The above report was generated using voice recognition software. It may contain grammatical, syntax or spelling errors. Electronically signed by: Hayden Garrett M.D. 04/08/2023 4:39 PM Chest X-Ray 04/08/23 14:26 XR chest 1V portable CLINICAL HISTORY: Sepsis TECHNIQUE: Single frontal radiograph of the chest was obtained. Comparison: Comparison is made to chest radiograph 03/17/2023 FINDINGS: No lines and tubes are seen. Calcified aortic knob is seen. Lungs are underinflated. A left retrocardiac opacity is again seen. No evidence of pleural effusion or pneumothorax. Partial visualization of a hiatal hernia. IMPRESSION: Underinflated lungs with left retrocardiac opacity likely representing atelectasis. ACT 112: Negative or not required by law. Electronically signed by: Juan Pennington M.D. 04/08/2023 4:[address] 04/08/23 14:26 CT head/brain wo con CLINICAL HISTORY: syncope Technique: Contiguous axial CT images of the head were acquired from the base of the skull to the vertex without intravenous contrast administration. Images were viewed in brain, subdural and bone windows. Automated dose lowering techniques and/or adjustment according to patient size were utilized for this exam. Comparison: Comparison is made to CT head 02/15/2023 Findings: Areas of decreased attenuation are present in the periventricular and subcortical white matter bilaterally consistent with small vessel ischemic disease. Generalized cerebral atrophy with commensurate enlargement of the ventricles, sulci, and cisterns is also present. There is no acute intracranial hemorrhage or evidence of acute territorial infarction. No shift of the midline structures, mass effect, or extra-axial abnormalities are shown. Atherosclerotic calcifications are present in the intracranial segments of the internal carotid arteries. 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 Imaged portions of the paranasal sinuses and mastoid air cells are clear. The orbits appear normal. There are no acute fractures of the calvaria or scalp swelling. Impression: No acute intracranial hemorrhage, no evidence of acute territorial infarction or other acute intracranial disease process. ACT 112: Negative or not required by law. Electronically signed by: Juan Pennington M.D. 04/08/2023 4:14 PM Discharge Plan Visit Data Chief Complaint: Syncope Stated Complaint: SYNCOPE ED Provider: Martinez Vidales Discharge Problem: Sepsis, Catheter-associated urinary tract infection, AMS (altered mental status), Syncope, Head injury, Contusion of forehead Patient Disposition: Admitted As Inpatient Discharge Instructions Interventions: ED Discharge Assessment Last Done: 04/08/23 17:58
[2023-04-08 15:01] LABS: Basophils # (auto) 0.05 K/uL (0-0.2); Basophils % (auto) 0.7 %; Eosinophils # (auto) 0.16 K/uL (0-0.50); Eosinophils % (auto) 2.3 %; Hematocrit (blood only) 35.1 % (42.0-52.0); Hemoglobin 11.8 g/dl (14.0-18.0); Immature Granulocytes # (auto) 0.02 K/uL (0.01-0.20); Immature Granulocytes % (auto) 0.3 %; Lymphocytes # (auto) 1.46 K/uL (1.2-3.4); Lymphocytes % (auto) 21.2 %; Mean Corpuscular Hemoglobin 28.6 pg (25.0-34.0); Mean Corpuscular Hgb Conc 33.6 g/dL (32.0-36.0); Mean Platelet Volume 10.7 fL (9.4-12.4); Monocytes # (auto) 0.95 K/uL (0.11-0.59); Monocytes % (auto) 13.8 %; Neutrophils # (auto) 4.24 K/uL (1.40-6.50); Neutrophils % (auto) 61.7 %; Platelet Count 347 K/uL (130-400); RDW Coefficient of Variation 15.1 % (11.5-14.5); RDW Standard Deviation 46.8 fL (36.4-46.3); Red Blood Count 4.13 M/uL (4.70-6.10); White Blood Count 6.88 K/ul (4.8-10.8)
[2023-04-08 15:02] LABS: iSTAT Creatinine 1.8 mg/dl (0.6-1.3); iSTAT Hemoglobin 12.2 g/dl (14.0-18.0); iSTAT Ionized Calcium 1.02 mmol/l (1.12-1.32); iSTAT Potassium 3.9 mmol/L (3.3-5.0)
[2023-04-08 15:04] LABS: Base Excess VBG -2.6 mEq/L; HCO3 VBG 23 mmol/L; Oxygen Saturation VBG < 60.0 %; PCO2 VBG 43 mmHg (38-50); PO2 VBG 38 mmHg; pH VBG 7.34 (7.36-7.41)
[2023-04-08 15:14] LABS: Alanine Aminotransferase 9 U/L (7-52); Albumin Level 3.1 gm/dl (3.4-5.0); Alkaline Phosphatase 72 U/L (34-104); Anion Gap 8 (3-11); Aspartate Aminotransferase 18 U/L (13-39); Bilirubin Direct 0.1 mg/dl (0-0.2); Bilirubin,Total 0.4 mg/dl (0.2-1.0); Blood Urea Nitrogen 21 mg/dl (6-23); Calcium 8.5 mg/dl (8.6-10.3); Carbon Dioxide 26 mmol/L (21-32); Chloride 102 mmol/L (98-107); Est GFR (African American) 45.2 ml/min; Glucose 119 mg/dl (70-99(Fasting)); Magnesium 1.8 mg/dl (1.7-2.4); Potassium 3.9 mmol/L (3.5-5.1); Sodium 136 mmol/L (136-145); Total Protein 6.3 gm/dl (6.0-8.3)
[2023-04-08 15:29] LABS: Influenza A virus by PCR Negative (Neg); Influenza B virus by PCR Negative (Neg); RSV by PCR Negative (Neg); SARS CoV2 RNA(COVID-19) Ceph NEGATIVE (Negative)
[2023-04-08 15:29] LABS: INR 1.1 (0.9-1.1); Partial Thromboplastin Ratio 0.9; Partial Thromboplastin Time 25.9 Seconds (21.0-31.0); Prothrombin Time 11.9 Seconds (9.0-12.0)
--- NOTE | 2023-04-08 16:15 | CT Scan Report ---
CT head/brain wo con CLINICAL HISTORY: syncope Technique: Contiguous axial CT images of the head were acquired from the base of the skull to the marika bubba without intravenous contrast administration. Images were viewed in brain, subdural and bone [facility]. Automated dose lowering techniques and/or adjustment according to patient size were utilized for this exam. Comparison: Comparison is made to CT head 02/15/2023 Findings: Areas of decreased attenuation are present in the periventricular and subcortical white matter bilate rally consistent with small vessel ischemic disease. Generalized cerebral atrophy with commensurate e nlargement of the ventricles, sulci, and cisterns is also present. There is no acute intracranial hem orrhage or evidence of acute territorial infarction. No shift of the midline structures, mass effect, or extra-axial abnormalities are shown. Atherosclerotic calcifications are present in the intracran ial segments of the internal carotid arteries. 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 Imaged portions of the paranasal sinuses and mastoid air cells are clear. The orbits appear normal. There are no acute fractures of the calvaria or scalp swelling. Impression: No acute intracranial hemorrhage, no evidence of acute territorial infarction or other acute intracra nial disease process. ACT 112: Negative or not required by law. Electronically signed by: Juan Pennington M.D. 04/08/2023 4:14 PM
--- NOTE | 2023-04-08 16:19 | CT Scan Report ---
CT abd pelvis IV con only CLINICAL HISTORY: syncope TECHNIQUE: Helical axial images of the abdomen and pelvis were obtained and displayed. Automated dose lowering techniques and/or adjustment according to patient size were utilized for this exam. This e xam was performed with intravenous contrast. COMPARISON: Comparison is made to CT abdomen pelvis 03/17/2023 FINDINGS: Lower chest: Bibasilar atelectasis versus scarring is seen. Liver: Unremarkable. No focal lesions are seen. Gallbladder and biliary tree: Patient is status post cholecystectomy. No intra- or extrahepatic bilia ry ductal dilation. Pancreas: Unremarkable, no focal lesions. Spleen: Unremarkable. Adrenals: Unremarkable. Kidneys and ureters: Unremarkable. 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 Bowel: Diverticulosis is seen without diverticulitis. The appendix is normal. Lymph nodes Retroperitoneal: Unremarkable. Pelvic: Unremarkable. Mesenteric: Unremarkable. Peritoneum: Normal. Vessels: Atherosclerotic calcifications are seen. Abdominal wall: Postsurgical changes are seen in the bilateral inguinal region compatible with hernia repair. Bones: Degenerative changes in the visualized spine. IMPRESSION: 1. No acute abnormalities. 2. Redemonstration of low-lying Linares catheter balloon which may be within the prostatic urethra. ACT 112: Negative or not required by law. Electronically signed by: Juan Pennington M.D. 04/08/2023 4:18 PM
--- NOTE | 2023-04-08 16:40 | CT Scan Report ---
CT cervical spine wo con CT DOSE: 3293.94 mGy.cm CLINICAL HISTORY: 82 years-old Male with symcope. Acute neck injury status post fall COMPARISON: Head CT of same day, chest CT 02/15/2023. TECHNIQUE: Multiple axial CT images of the cervical spine were obtained without contrast. A dose low ering technique was utilized adhering to the principles of ALARA. FINDINGS: Advanced multilevel degenerative changes. Unchanged mild chronic superior endplate compress ion at T1. No acute cervical spine fracture or subluxation identified. Small left mastoid effusion. T he cervical soft tissues appear unremarkable. The visualized lung apices appear clear. IMPRESSION: No acute cervical spine fracture or subluxation. ACT 112: Negative or not required by law. The above report was generated using voice recognition software. It may contain grammatical, syntax o r spelling errors. Electronically signed by: Hayden Garrett M.D. 04/08/2023 4:39 PM
--- NOTE | 2023-04-08 16:40 | CT Scan Report ---
CT angio chest PE protocol HISTORY: 82 years-old Male with PE. Acute shortness breath with syncope TECHNIQUE: Multiple CTA images of the chest were obtained after the intravenous administration of 115 ml Optiray. Coronal and sagittal MIPS were obtained from the axial data set and were submitted for review. All measurements were obtained according to NASCET criteria. A dose lowering technique was u tilized adhering to the principles of ALARA. COMPARISON: CT abdomen and pelvis study of same day, chest CT 02/15/2023 FINDINGS: CTA: Mild cardiomegaly with trace pericardial effusion. Extensive coronary artery calcifications with athe rosclerosis of the thoracic aorta. Limited evaluation of the pulmonary arterial tree secondary to res piratory motion and contrast bolus timing. No central pulmonary emboli are identified. CT CHEST: Heterogeneity of the thyroid. No pathologically enlarged lymph nodes. No pneumothorax, pleural effusi on, airspace consolidation or pulmonary edema. Emphysema with mild intralobular septal thickening. Banda bsegmental bibasilar densities favor atelectasis. No suspicious pulmonary nodule or masses identified . Mild tracheobronchial secretions. No acute process of the imaged upper abdomen. Moderate hiatal hernia. Cholecystectomy. Nonspecific tr hiro edema within the mikki hepatis. Unremarkable soft tissues. No acute fracture identified. Asymmetr y of the sternoclavicular joints is similar to prior. IMPRESSION: 1. No acute posttraumatic intrathoracic abnormality. 2. No acute fracture or pneumothorax identified. 3. Cardiomegaly with emphysema. 4. No pulmonary emboli identified. 5. Additional findings as above. ACT 112: Negative or not required by law. The above report was generated using voice recognition software. It may contain grammatical, syntax o r spelling errors. Electronically signed by: Hayden Garrett M.D. 04/08/2023 4:39 PM
[2023-04-08 16:49] LABS: Appearance Urine Clear (Clear); Bacteria Urine Automated Negative (Negative); Bilirubin Urine Negative (Negative); Blood Urine 3+ (Negative); Color Urine Orange; Epithelial Cell Urine Auto 20-30 /lpf (0-5); Glucose Urine UA Negative (Negative); Ketones Urine Negative (Negative); Leukocyte Esterase Urine 2+ (Negative); Nitrite Urine Negative (Negative); Protein Urine Negative (Negative); RBC Urine Automated >30 /hpf (0-4); Specific Gravity Urine 1.034 (1.000-1.030); Urobilinogen Urine Negative (Negative); WBC Urine Automated >30 /hpf (0-5)
--- NOTE | 2023-04-08 16:56 | XRay Report ---
XR chest 1V portable CLINICAL HISTORY: Sepsis TECHNIQUE: Single frontal radiograph of the chest was obtained. Comparison: Comparison is made to chest radiograph 03/17/2023 FINDINGS: No lines and tubes are seen. Calcified aortic knob is seen. Lungs are underinflated. A left retrocard iac opacity is again seen. No evidence of pleural effusion or pneumothorax. Partial visualization of a hiatal hernia. IMPRESSION: Underinflated lungs with left retrocardiac opacity likely representing atelectasis. ACT 112: Negative or not required by law. Electronically signed by: Juan Pennington M.D. 04/08/2023 4:54 PM
[2023-04-08 17:23] LABS: Amphetamines+Metham, Urine Neg (Neg); Barbiturates, Urine Neg (Neg); Benzodiazepine, Urine Neg (Neg); Cocaine, Urine Neg (Neg); MDMA (Ecstacy), Urine Neg (Neg); Methadone, Urine Neg (Neg); Opiate, Urine Neg (Neg); Phencyclidine, Urine Neg (Neg)
--- NOTE | 2023-04-08 17:59 | History & Physical Report ---
Date of Service April 08, 2023 Assessment & Plan (1) Sepsis: (2) UTI (urinary tract infection): (3) Diabetes: (4) CAD (coronary artery disease): Plan This is an 82-year-old man who is a prisoner, wheelchair-bound with significant past medical history of CAD on aspirin and Plavix, diastolic CHF, COPD, insulin- dependent T2DM and BPH who presents to ED after sustaining syncopal episode. Recent hospitalization 03/17/03/23 at [facility] 2/2 sepsis in setting of acute cholecystitis s/p Lap thania ? Syncopal episode Possible Severe Sepsis in setting of hypotension and dx with UTI as OP in alf source: Urine, urosepsis pt meets criteria for sepsis in setting of hypotension, lactic acidosis, altered mental status and reported UTI dx at alf admit to PCU pt Appropriately resuscitated in ED with 2 L of IV fluid Given history of CHF and appropriate blood pressures will monitor off fluids for now Continue IV Zosyn Await urine culture although initial urine here is negative for bacteria blood and urine culture pending May need to reach out to alf for culture results as he was started on antibiotics 04/07 Recent echo done on 03/18 revealed EF 55 to 59%, mild aortic valve regurg, aortic root mildly enlarged otherwise normal study CT negative for PE or pneumonia Obtain bilateral carotid Doppler syncope likely in setting of hypotension DONNIE bun/cr 21 and 1.61 will trend cr avoid nephrotoxic agents consider additional fluids in a.m. if not improved o r if BP decreases possibly in setting of ATN due to hypotension vs pre renal CAD continue asa, metoprolol, plavix for now hold bumex, imdur, lisinopril due to donnie and hypotension resuem as able IDDM2 lantus/novolog per protocol a1c 7.0 01/13/23 Chronic conditions: COPD - no acute exac HLD- statin therapy Chronic anemia - hgb at 11.8, last hgb 13.2, recently underwent lap thania, monitor h/h Hx of MRSA- contact precautions BCC, nose status post surgery/failed flap reconstruction (December 2022) and subsequent takedown (01/2023) Status post Mohs surgery DVTppx: SQ Heparin Lines: Central Line, L femoral; Linares cath placed in ED FULL CODE PCP: Gregory MCCORMICK Pt was seen and examined in collaboration with Dr. Montenegro, please see addendum A total of 75 was spent coordinating, documenting, and providing care for this patient excluding time spent in the performance of separately billed services. This included personally viewing all current laboratories and imaging studies, medication reconciliation, outpatient chart review, and discussion with specialists. History of Present Illness Chief Complaint: Syncope [employer]. Primary Care Provider: ANNY Lawrence This is an 82-year-old man who is a prisoner, wheelchair-bound with significant past medical history of CAD on aspirin and Plavix, diastolic CHF, COPD, insulin- dependent T2DM and BPH who presents to ED after sustaining syncopal episode. According to report patient was in the bathroom when he had a syncopal episode and has since had altered mental status. At present he was recently started on Cipro and has had 2 doses due to concerns for urinary tract infections that was diagnosed at the present. Patient was hypotensive while in ED and a central li ne was placed. He was resuscitated with 2 L of IV fluid and his blood pressures have since normalized. He initially had a lactic acid at 3.1 and after resuscitation returned to normal at 1.7. During my evaluation patient was awake alert and answering questions appropriately. He states he remembers being in the bathroom. He was having difficulty taking medications whenever he got, "sick to his stomach." Due to being sick in the stomach he opted to lie on the floor. He states he recalls all events and he denies passing out. He is alert and able to tell me his name, believes he is at [facility], is aware that he resides at the [facility], and aware of the year. He also recalls recently being hospitalized 1 month ago and having his gallbladder removed. He states he is feeling much better than previously. In ED he again received 2 L of IV fluid as well as IV Zosyn. Of significance patient was hospitalized done at [facility] 03/17 to 03/16 secondary to sepsis in setting of cholecystitis. He underwent cardiac work-up for restratification and was taken to the OR on for laparoscopic cholecystectomy and drain placement. He tolerated the procedure well and diet w as advanced as tolerated. He was medically discharged back to the alf on 03/23/2023. His incisions have healed well. He overall feels his appetite is well. Allergies Allergy/AdvReac Type Severity Reaction Status Date / Time Sulfa (Sulfonamide Allergy Unknown ON SCI Verified 04/08/23 16:54 Antibiotics) [facility] MED LIST Home Medications Medication Instructions Recorded Confirmed Type albuterol sulfate 90 mcg/actuation 2 puff inhalation QID PRN 02/15/23 04/08/23 History aerosol inhaler Shortness Of Breath aspirin 81 mg tablet,delayed 81 mg PO DAILY 02/15/23 04/08/23 History release bumetanide 1 mg tablet 1 mg PO DAILY 02/15/23 04/08/23 History ciclesonide 160 mcg/actuation 2 puff inhalation BID 02/15/23 04/08/23 History aerosol inhaler (Alvesco) clopidogrel 75 mg tablet (Plavix) 75 mg PO DAILY 02/15/23 04/08/23 History cranberry extract 250 mg tablet 250 mg PO DAILY 02/15/23 04/08/23 History doxazosin 8 mg tablet 8 mg PO HS 02/15/23 04/08/23 History fluoxetine 20 mg tablet 20 mg PO DAILY 02/15/23 04/08/23 History insulin human U-100 NPH-regulr 12 unit subcut BID 02/15/23 04/08/23 History 70-30 mix 100 unit/mL subcutaneous susp (Novolin 70/30 U-100 Insulin) insulin regular human 100 unit/mL 1 sliding scale dose subcut 02/15/23 04/08/23 History injection solution (Novolin R USEASDIRECTD Regular U-100 Insulin) isosorbide mononitrate 30 mg 30 mg PO DAILY 02/15/23 04/08/23 History tablet,extended release 24 hr latanoprost 0.005 % eye drops 1 drp ophthalmic (eye) PM 02/15/23 04/08/23 History lisinopril 40 mg tablet 40 mg PO DAILY 02/15/23 04/08/23 History menthol 0.44 %-zinc oxide 20.6 % 1 applic topical QID PRN flare ups 02/15/23 04/08/23 History topical ointment (Calmoseptine) metoprolol tartrate 50 mg tablet 50 mg PO BID 02/15/23 04/08/23 History rosuvastatin 10 mg tablet 10 mg PO DAILY 02/15/23 04/08/23 History acetaminophen 500 mg tablet 500 mg PO TID PRN Pain 04/08/23 04/08/23 History (Tylenol Extra Strength) ciprofloxacin HCl 500 mg tablet 500 mg PO Q12H 04/08/23 04/08/23 History docusate sodium 100 mg capsule 100 mg PO BID 04/08/23 04/08/23 History ferrous gluconate 324 mg (38 mg 324 mg PO DAILY 04/08/23 04/08/23 History iron) tablet Past Med/Surg History Medical History CHF (congestive heart failure) COPD (chronic obstructive pulmonary disease) Diabetes High blood pressure Surgical History (Updated 04/08/23 @ 18:11 by Anita Mcconnell PA-C) H/O inguinal hernia repair History of appendectomy Hx laparoscopic cholecystectomy Family History Father Coronary heart disease Diabetes Social History Smoking Status: Former smoker Tobacco Type: Cigarettes Hx Alcohol Use: No Hx Substance Use: No Preferred Language: Polish Communication Ability: Unable Rock Mason Required: No Beliefs That Will Affect Care: None Current Living Situation: Other Current Living Situation Comment: ANNY lawrence Feels Safe at Home: Yes Assistive Devices: None Review of Systems Review of Systems: All systems reviewed & are unremarkable except as noted in HPI & below Physical Exam Physical Exam: Constitutional: Chronically ill appearing male, unkempt, vitals as above, NAD, sitting up in bed, answers questions approp, conversing easily Head: Normocephalic, Atraumatic Eyes: PERRL, conjunctivae normal, anicteric sclerae ENMT: external ear and nose normal, oropharynx normal dry membranes Neck: trachea midline, no thyromegaly normal visual inspection Respiratory: shallow respiratory effort, lungs clear to auscultation with tracheal breath sounds, mild rhonchi, no wheeze/rale. Normal insp/exp effort, no accessory muscle use Cardiovascular: RRR, no murmur, no edema Vessels: no JVD or carotid bruit Chest: normal inspection of chest Abdomen: normal bowel sounds, soft, nontender, + lap thania incisions CDI, no erythema Musculoskeletal: no cyanosis or clubbing, extremities AROM x4 Skin: no rashes, warm and dry normal turgor Neurologic: no face palsy, no dysarthria CN's II-XI intact bilaterally and moves all extremities Psychiatric: A+Ox3, euthymic affect Lymphatic: no cervical or axillary lymphadenopathy : deferred Results & Data Results & Data Vital Signs (Past 12 Hours) Vital Signs Temp Pulse Resp BP Pulse Ox O2 Del Method O2 Flow Rate 04/08/23 17:55 69 15 94 04/08/23 17:50 64 19 85 L 04/08/23 17:45 64 17 93 04/08/23 17:45 112/66 04/08/23 17:40 58 L 11 L 93 04/08/23 17:35 54 L 17 97 04/08/23 17:30 63 13 95 04/08/23 17:30 114/65 04/08/23 17:25 56 L 12 93 04/08/23 17:20 72 19 91 04/08/23 17:15 63 12 93 04/08/23 17:15 121/61 04/08/23 17:10 53 L 12 97 04/08/23 17:05 66 14 97 04/08/23 17:00 53 L 17 92 04/08/23 17:00 122/67 04/08/23 16:55 68 17 94 04/08/23 16:50 59 L 12 95 04/08/23 16:45 61 16 95 04/08/23 16:45 100/65 04/08/23 16:40 67 15 95 04/08/23 16:35 63 12 96 04/08/23 16:31 107/62 04/08/23 16:31 63 12 96 04/08/23 16:30 64 14 94 04/08/23 16:25 65 16 95 04/08/23 16:20 68 13 94 04/08/23 16:17 69 13 91 04/08/23 16:17 105/63 04/08/23 16:15 68 12 04/08/23 15:50 60 15 98 04/08/23 15:45 61 14 100 04/08/23 15:45 101/63 04/08/23 15:40 60 15 98 04/08/23 15:35 64 13 94 04/08/23 15:30 64 15 99 04/08/23 15:30 103/48 L 04/08/23 15:25 66 14 99 04/08/23 15:20 66 16 97 04/08/23 15:15 56 L 17 97 04/08/23 15:15 88/49 L 04/08/23 15:10 56 L 13 97 04/08/23 15:05 58 L 18 97 04/08/23 15:00 58 L 16 98 04/08/23 15:00 75/44 L 04/08/23 14:55 61 15 97 04/08/23 14:51 78/41 L 04/08/23 14:51 56 L 15 97 04/08/23 14:50 63 14 95 04/08/23 14:45 59 L 14 95 04/08/23 14:40 131 H 15 91 04/08/23 14:35 138 H 20 97 04/08/23 14:35 59/40 L 04/08/23 14:30 126 H 17 93 04/08/23 14:21 138 H 15 04/08/23 14:33 86 L Room Air 0 04/08/23 14:23 72 04/08/23 14:21 36.4 C L 129 H 15 67/41 L 93 Room Air Diagnostic Findings Abdomen/Pelvis CT 04/08/23 14:26 CT abd pelvis IV con only CLINICAL HISTORY: syncope TECHNIQUE: Helical axial images of the abdomen and pelvis were obtained and displayed. Automated dose lowering techniques and/or adjustment according to patient size were utilized for this exam. This exam was performed with intravenous contrast. COMPARISON: Comparison is made to CT abdomen pelvis 03/17/2023 FINDINGS: Lower chest: Bibasilar atelectasis versus scarring is seen. Liver: Unremarkable. No focal lesions are seen. Gallbladder and biliary tree: Patient is status post cholecystectomy. No intra- or extrahepatic biliary ductal dilation. Pancreas: Unremarkable, no focal lesions. Spleen: Unremarkable. Adrenals: Unremarkable. Kidneys and ureters: Unremarkable. 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 Bowel: Diverticulosis is seen without diverticulitis. The appendix is normal. Lymph nodes Retroperitoneal: Unremarkable. Pelvic: Unremarkable. Mesenteric: Unremarkable. Peritoneum: Normal. Vessels: Atherosclerotic calcifications are seen. Abdominal wall: Postsurgical changes are seen in the bilateral inguinal region compatible with hernia repair. Bones: Degenerative changes in the visualized spine. IMPRESSION: 1. No acute abnormalities. 2. Redemonstration of low-lying Linares catheter balloon which may be within the prostatic urethra. ACT 112: Negative or not required by law. Electronically signed by: Juan Pennington M.D. 04/08/2023 4:[address] 04/08/23 14:26 CT cervical spine wo con CT DOSE: 3293.94 mGy.cm CLINICAL HISTORY: 82 years-old Male with symcope. Acute neck injury status post fall COMPARISON: Head CT of same day, chest CT 02/15/2023. TECHNIQUE: Multiple axial CT images of the cervical spine were obtained without contrast. A dose lowering technique was utilized adhering to the principles of ALARA. FINDINGS: Advanced multilevel degenerative changes. Unchanged mild chronic superior endplate compression at T1. No acute cervical spine fracture or subluxation identified. Small left mastoid effusion. The cervical soft tissues appear unremarkable. The visualized lung apices appear clear. IMPRESSION: No acute cervical spine fracture or subluxation. ACT 112: Negative or not required by law. The above report was generated using voice recognition software. It may contain grammatical, syntax or spelling errors. Electronically signed by: Hayden Garrett M.D. 04/08/2023 4:39 PM Chest CTA 04/08/23 14:26 CT angio chest PE protocol HISTORY: 82 years-old Male with PE. Acute shortness breath with syncope TECHNIQUE: Multiple CTA images of the chest were obtained after the intravenous administration of 115 ml Optiray. Coronal and sagittal MIPS were obtained from the axial data set and were submitted for review. All measurements were obtained according to NASCET criteria. A dose lowering technique was utilized adhering to the principles of ALARA. COMPARISON: CT abdomen and pelvis study of same day, chest CT 02/15/2023 FINDINGS: CTA: Mild cardiomegaly with trace pericardial effusion. Extensive coronary artery calcifications with atherosclerosis of the thoracic aorta. Limited evaluation of the pulmonary arterial tree secondary to respiratory motion and contrast bolus timing. No central pulmonary emboli are identified. CT CHEST: Heterogeneity of the thyroid. No pathologically enlarged lymph nodes. No pneumothorax, pleural effusion, airspace consolidation or pulmonary edema. Emphysema with mild intralobular septal thickening. Subsegmental bibasilar densities favor atelectasis. No suspicious pulmonary nodule or masses identified. Mild tracheobronchial secretions. No acute process of the imaged upper abdomen. Moderate hiatal hernia. Cholecystectomy. Nonspecific trace edema within the mikki hepatis. Unremarkable soft tissues. No acute fracture identified. Asymmetry of the sternoclavicular joints is similar to prior. IMPRESSION: 1. No acute posttraumatic intrathoracic abnormality. 2. No acute fracture or pneumothorax identified. 3. Cardiomegaly with emphysema. 4. No pulmonary emboli identified. 5. Additional findings as above. ACT 112: Negative or not required by law. The above report was generated using voice recognition software. It may contain grammatical, syntax or spelling errors. Electronically signed by: Hayden Garrett M.D. 04/08/2023 4:39 PM Chest X-Ray 04/08/23 14:26 XR chest 1V portable CLINICAL HISTORY: Sepsis TECHNIQUE: Single frontal radiograph of the chest was obtained. Comparison: Comparison is made to chest radiograph 03/17/2023 FINDINGS: No lines and tubes are seen. Calcified aortic knob is seen. Lungs are underinflated. A left retrocardiac opacity is again seen. No evidence of pleural effusion or pneumothorax. Partial visualization of a hiatal hernia. IMPRESSION: Underinflated lungs with left retrocardiac opacity likely representing atelectasis. ACT 112: Negative or not required by law. Electronically signed by: Juan Pennington M.D. 04/08/2023 4:[address] 04/08/23 14:26 CT head/brain wo con CLINICAL HISTORY: syncope Technique: Contiguous axial CT images of the head were acquired from the base of the skull to the vertex without intravenous contrast administration. Images were viewed in brain, subdural and bone windows. Automated dose lowering techniques and/or adjustment according to patient size were utilized for this exam. Comparison: Comparison is made to CT head 02/15/2023 Findings: Areas of decreased attenuation are present in the periventricular and subcortical white matter bilaterally consistent with small vessel ischemic disease. Generalized cerebral atrophy with commensurate enlargement of the ventricles, sulci, and cisterns is also present. There is no acute intracranial hemorrhage or evidence of acute territorial infarction. No shift of the midline structures, mass effect, or extra-axial abnormalities are shown. Atherosclerotic calcifications are present in the intracranial segments of the internal carotid arteries. 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 Imaged portions of the paranasal sinuses and mastoid air cells are clear. The orbits appear normal. There are no acute fractures of the calvaria or scalp s welling. Impression: No acute intracranial hemorrhage, no evidence of acute territorial infarction or other acute intracranial disease process. ACT 112: Negative or not required by law. Electronically signed by: Juan Pennington M.D. 04/08/2023 4:14 PM Medications Administered Medication List Discontinued Medications Sodium Chloride (Nss 1000ml) 1,000 mls @ 999 mls/hr IV .Q1H1M ONE Stop: 04/08/23 15:26 Last Infusion: 04/08/23 15:41 Dose: 0 mls/hr Documented By: Admin: 04/08/23 14:30 Dose: 999 mls/hr Documented By: MARGO Piperacillin Sod/Tazobactam Sod (Zosyn) 4.5 gm in 120 mls @ 240 mls/hr IV NOW ONE Stop: 04/08/23 14:55 Last Infusion: 04/08/23 15:41 Dose: 0 mls/hr Documented By: Admin: 04/08/23 14:45 Dose: 240 mls/hr Documented By: MARGO Sodium Chloride (Nss 1000ml) 1,000 mls @ 999 mls/hr IV .Q1H1M ONE Stop: 04/08/23 15:52 Last Infusion: 04/08/23 16:22 Dose: 0 mls/hr Documented By: Admin: 04/08/23 14:56 Dose: 999 mls/hr Documented By: MARGO Sodium Chloride (Nss 1000ml) 1,000 mls @ 999 mls/hr IV .Q1H1M ONE Stop: 04/08/23 17:42 Last Infusion: 04/08/23 17:53 Dose: 0 mls/hr Documented By: Admin: 04/08/23 16:44 Dose: 999 mls/hr Documented By: MARGO ECG Rate (beats per minute): 68 Rhythm: normal sinus Additional Comments: PAC noted, QTC 463ms COVID-19 Results Results COVID-19 Adm Lab Results: RBC 4.13 M/uL (4.70-6.10) L 04/08/23 WBC 6.88 K/ul (4.8-10.8) 04/08/23 Hgb 11.8 g/dl (14.0-18.0) L 04/08/23 Hct 35.1 % (42.0-52.0) L 04/08/23 Plt Count 347 K/uL (130-400) 04/08/23 Neutrophils (%) (Auto) 61.7 % 04/08/23 Lymphocytes (%) (Auto) 21.2 % 04/08/23 Monocytes # (Auto) 0.95 K/uL (0.11-0.59) H 04/08/23 Eosinophils # (Auto) 0.16 K/uL (0-0.50) 04/08/23 Immature Granulocyte % (Auto) 0.3 % 04/08/23 Neutrophils # (Auto) 4.24 K/uL (1.40-6.50) 04/08/23 Lymphocytes # (Auto) 1.46 K/uL (1.2-3.4) 04/08/23 Monocytes # (Auto) 0.95 K/uL (0.11-0.59) H 04/08/23 Eosinophils # (Auto) 0.16 K/uL (0-0.50) 04/08/23 Basophils # (Auto) 0.05 K/uL (0-0.2) 04/08/23 Immature Granulocyte # (Auto) 0.02 K/uL (0.01-0.20) 3 Na 136 mmol/L (136-145) 04/08/23 K 3.9 mmol/L (3.5-5.1) 04/08/23 Cl 102 mmol/L (98-107) 04/08/23 CO2 26 mmol/L (21-32) 04/08/23 Anion Gap 8 (3-11) 04/08/23 BUN 21 mg/dl (6-23) 04/08/23 Creatinine 1.61 mg/dl (0.6-1.4) H 04/08/23 BUN/Creatinine Ratio 13.0 (10-20) 04/08/23 Glucose Level 119 mg/dl (70-99(Fasting)) H 04/08/23 Ca 8.5 mg/dl (8.6-10.3) L 04/08/23 Total Bilirubin 0.4 mg/dl (0.2-1.0) 04/08/23 Direct Bilirubin 0.1 mg/dl (0-0.2) 04/08/23 AST/SGOT 18 U/L (13-39) 04/08/23 ALT/SGPT 9 U/L (7-52) 04/08/23 Alkaline Phosphatase 72 U/L (34-104) 04/08/23 Total Protein 6.3 gm/dl (6.0-8.3) 04/08/23 Albumin 3.1 gm/dl (3.4-5.0) L 04/08/23 Procalcitonin < 0.05 ng/ml (0-0.5) 04/08/23 PTT 25.9 Seconds (21.0-31.0) 04/08/23 INR 1.1 (0.9-1.1) 04/08/23 COVID-19 PCR NEGATIVE (Negative) 04/08/23 Influenza Virus Type A (PCR) Negative (Neg) 04/08/23 Influenza Virus Type B (PCR) Negative (Neg) 04/08/23 Chest X-Ray 04/08/23 Code Status & VTE Plan Code Status FULL CODE VTE Prophylaxis Plan VTE Prophylaxis will be ordered: Yes Supervising Physician Co-Signing Physician Notes Patient was seen and examined with Anita PAGE at bedside. Chart reviewed including vitals, labs, imaging and ED notes, as well as recent admission notes here and at [facility]. Case discussed with Anita and agree with the documentation above. In summary, this is a 82 year old male who presented to the ED with AMS and syncopal episode. Patient was diagnosed with UTI and was started on cipro at the alf last night- received 2 dose so far. Hypotensive on arrival in ED. After initial management in ED with fluids and empiric zosyn, patient is much improved and seems back to baseline compared to my recent encounter 2 months back. No acute abnormality in CTA chest- no PE or PNA. UA abnormal. CT head unremarkable. No leucocytosis but elevated lactate. No fever. Procal negative. On exam, AAOx4, oral mucosa dry, chest with decreased breath sounds, decreased cough, abd benign, heart sounds normal, forehead with abrasion from the fall today, no LE edema, cuff on LE. Agree with admission for sepsis due to UTI- continue IV ABx while waiting for clx results. Also has DONNIE and received IVF, recheck Cr in am. Hold antihypertensive and diuretic for now. Rest as per the note above. (1) Sepsis Acute renal failure type: unspecified Sepsis acute organ dysfunction status: with acute organ dysfunction Sepsis type: sepsis due to unspecified organism Severe sepsis acute organ dysfunction type: acute renal failure Severe sepsis shock status: unspecified Qualified Code(s): A41.9 - Sepsis, unspecified organism; R65.20 - Severe sepsis without septic shock; N17.9 - Acute kidney failure, unspecified
[2023-04-08] MEDS ORDERED: ALBUTEROL HFA 8 GM INHALER INH PRN (18:37)
[2023-04-08] MEDS ORDERED: GLUCOSE 10 TAB/TUBE PO PRN (18:37)
[2023-04-08] MEDS ORDERED: GLUCOSE 40% GEL 15 GM TUBE PO PRN (18:37)
[2023-04-08] MEDS ORDERED: CARBOHYDRATES FOR HYPOGLYCEMIA PO PRN (18:37)
[2023-04-08] MEDS ORDERED: ONDANSETRON INJ 2 MG/ML 2 ML VIAL IV PRN (18:37)
[2023-04-08] MEDS ORDERED: GLUCAGON FOR INJ 1 MG VIAL SQ PRN (18:37)
[2023-04-08] MEDS ORDERED: PHARMACY GLYCEMIC MGMT CONSULT PRN (18:37)
[2023-04-08] MEDS ORDERED: ACETAMINOPHEN 325 MG TAB PO PRN (18:37)
[2023-04-08] MEDS ORDERED: DEXTROSE 50% 50 ML SYRINGE IV PRN (18:37)
--- NOTE | 2023-04-08 19:54 | Electrocardiogram Report ---
Test Reason : Blood Pressure : / mmHG Vent. Rate : 068 BPM Atrial Rate : 068 BPM P-R Int : 172 ms QRS Dur : 086 ms QT Int : 436 ms P-R-T Axes : 072 194 069 degrees QTc Int : 463 ms Sinus rhythm with Premature atrial complexes Right superior axis deviation Abnormal ECG When compared with ECG of 17-MAR-2023 11:48, Premature atrial complexes are now Present Vent. rate has decreased BY 56 BPM Confirmed by Demarco Garcia ([id number]) on 04/08/2023 7:53:45 PM Referred By: Heather [facility] Confirmed By:Kirill Garcia
[2023-04-08] MEDS: PIPERACILLIN/TAZOBACTAM 4.5 GM in DEXTROSE 5% 100 ML IV SCH (20:01)
[2023-04-08] MEDS: DOXAZosin MESYLATE 4 MG TAB PO SCH (20:03)
[2023-04-08] MEDS: DOCUSATE SODIUM 100 MG CAP PO SCH (20:03)
[2023-04-08] MEDS: METOPROLOL TARTRATE 25 MG TAB PO SCH (20:04)
[2023-04-08] MEDS: HEPARIN SOD 5,000 UNIT/0.5 ML VIAL SQ SCH (20:09)
[2023-04-08] MEDS ORDERED: LANTUS PER UNIT CHARGE SQ SCH (21:00)
[2023-04-08] MEDS: INSULIN ASPART PER UNIT CHARGE SC SCH (21:12)
[2023-04-08] MEDS: Patient's HEIGHT Needed SCH (21:20)
[2023-04-09] MEDS: PIPERACILLIN/TAZOBACTAM 4.5 GM in DEXTROSE 5% 100 ML IV SCH ×3 (05:00→21:07)
[2023-04-09] MEDS: HEPARIN SOD 5,000 UNIT/0.5 ML VIAL SQ SCH ×3 (05:05→21:07)
[2023-04-09 06:56] LABS: Hematocrit (blood only) 32.2 % (42.0-52.0); Hemoglobin 10.6 g/dl (14.0-18.0); Mean Corpuscular Hemoglobin 28.5 pg (25.0-34.0); Mean Corpuscular Hgb Conc 32.9 g/dL (32.0-36.0); Mean Corpuscular Volume 86.6 fL (80.0-100.0); Mean Platelet Volume 10.6 fL (9.4-12.4); Platelet Count 279 K/uL (130-400); RDW Coefficient of Variation 15.3 % (11.5-14.5); RDW Standard Deviation 48.6 fL (36.4-46.3); Red Blood Count 3.72 M/uL (4.70-6.10); White Blood Count 6.09 K/ul (4.8-10.8)
[2023-04-09 07:08] LABS: BUN Creatinine Ratio 11.7 (10-20); Chol HDL Ratio 3.1 (0-5); Creatinine Clr Calc Pharmacy 46.8 ml/min; Est GFR (African American) 54.9 ml/min; Est GFR (Non-African American) 47.4 ml/min; Magnesium 1.6 mg/dl (1.7-2.4); Potassium 4.1 mmol/L (3.5-5.1)
[2023-04-09] MEDS: Patient's HEIGHT Needed SCH ×3 (07:13→07:27)
[2023-04-09 07:36] LABS: Estimated Average Glucose 120 mg/dl; Hemoglobin A1C 5.8 % (4.5-5.6)
[2023-04-09] MEDS: INSULIN ASPART PER UNIT CHARGE SC SCH ×4 (08:45→21:14)
[2023-04-09] MEDS: DOCUSATE SODIUM 100 MG CAP PO SCH ×2 (08:46→21:06)
[2023-04-09] MEDS: FLUoxetine HCL 20 MG CAP PO SCH (08:46)
[2023-04-09] MEDS: METOPROLOL TARTRATE 25 MG TAB PO SCH ×2 (08:46→21:06)
[2023-04-09] MEDS: ROSUVASTATIN CALCIUM 10 MG TAB PO SCH (08:47)
[2023-04-09] MEDS ORDERED: ASPIRIN 81 MG ECTAB PO SCH (09:00)
[2023-04-09] MEDS ORDERED: CLOPIDOGREL BISULFATE 75 MG TAB PO SCH (09:00)
--- NOTE | 2023-04-09 10:46 | Pharmacy Report ---
Pharmacy Glycemic Short Note 2 - Date of Service April 09, 2023 - Glycemic Short BSG Results (Last 24 hours): 04/08/23 04/08/23 04/08/23 14:35 14:50 21:08 Glucose 119 H POC Glucose 151 H POC Glucose (other) 118 H 04/09/23 04/09/23 06:32 07:49 Glucose 98 POC Glucose 158 H POC Glucose (other) OUTPATIENT ANTIDIABETIC REGIMEN: * Novolin 70/30 12 units SQ BID * Regular Insulin sliding scale as directed HbA1c = 5.8% on 04/09/23 ASSESSMENT: * 82 y/o M admitted for syncope and urosepsis/UTI yesterday. He has history of diabetes managed only on basal and bolus insulin. * A1c indicates that his diabetes is probably too tightly controlled and may need slightly reduced doses of insulin in the [place] [facility]. * BSGs on admission have been 118-151 mg/dl yesterday. Fasting BSG today was 98 mg/dl. * He received 5 units of Lantus last night. Novolog was ordered based on stress of 2. * Lantus dose ordered on a scale for tonight based on BSG. * Pre-lunch BSG was 71 mg/dl today, Novolog parameters loosened. PLAN FOR INPATIENT GLYCEMIC CONTROL: * Basal insulin * Lantus 5 units SQ last night * Ongoing Lantus 5-10 units SQ HS based on BSG * Bolus insulin * NovoLog per scale ACHS or Q6hrs while NPO * Goal Range: Low 110 mg/dL - High 150 mg/dL * Correction Factor: 30 mg/dL/unit * Nutritional / Prandial insulin per carb ratio of 1 unit per 10 grams CHO consumed
--- NOTE | 2023-04-09 11:42 | Hospitalist Progress Note ---
Date of Service April 09, 2023 Assessment & Plan (1) Sepsis: (2) UTI (urinary tract infection): (3) Diabetes: (4) CAD (coronary artery disease): Plan This is an 82-year-old man who is a prisoner, wheelchair-bound with significant past medical history of CAD on aspirin and Plavix, diastolic CHF, COPD, insulin- dependent T2DM and BPH who presents to ED after sustaining syncopal episode. Recent hospitalization 03/17/03/23 at [facility] 2/2 sepsis in setting of acute cholecystitis s/p Lap thania ?Syncopal episode Possible Severe Sepsis in setting of hypotension and dx with UTI as OP in detention source: Urine, urosepsis pt meets criteria for sepsis in setting of hypotension, lactic acidosis, altered mental status and reported UTI dx at detention CTA chest negative for PE or PNA. UA abnormal. Syncope in setting of hypotension. Patient improved significantly after initial ED management and remains stable since - continue empiric zosyn pending urine and blood clx results - Awaiting OP urine clx results from the correctional facility DONNIE bun/cr 21 and 1.61 Cr improving after IVF and holding diuretics. Cr down to 1.61->1.37 Recheck in am. Hold diuretics for now. Avoid nephrotoxic agents CAD continue asa, metoprolol, plavix, imdur Hold bumex and lisinopril due to donnie and hypotension IDDM2 lantus/novolog per protocol a1c 7.0 01/13/23 Chronic conditions: COPD - no acute exacerbation HLD- statin therapy Chronic anemia - hgb at 11.8, last hgb 13.2, recently underwent lap thania, monitor h/h BCC, nose status post Moh's surgery/failed flap reconstruction (December 2022) and subsequent takedown (01/2023) DVTppx: SQ Heparin Dispo- Anticipate discharge tomorrow if clx results available Admission and Anticipated Discharge Date Admission Date: April 08, 2023 Subjective Patient was seen and examined at bedside. Denies any issues. He feels good and is asking if he can go back to the correctional facility tomorrow. No fever, chills, chest pain or shortness of breath, nausea or vomiting. States he is on chronic Linares and was changed 2 weeks back at the detention. Review of Systems Review of Systems: All systems reviewed & are unremarkable except as noted in Subjective Physical Exam Physical Exam: General: Sitting comfortably in bed, not in distress, on room air HEENT: EOMI, PAUL, dry oral mucosa. Deformed alae nasi Chest: Clear breath sounds bilaterally, no wheezes or crackles CVS: Regular rate and rhythm, normal heart sounds, no murmur Abdomen: Soft, non tender, not distended, normal bowel sounds. Lap thania incision sites healed. Neuro: Awake, alert, oriented, conversing well, non focal Extremities: No cyanosis, clubbing or edema. Cuffed lower extremity : Linares with monik urine Results & Data Results & Data Vital Signs (Past 12 Hours) Vital Signs Temp Pulse Pulse Resp BP Pulse Ox O2 Del Method 04/09/23 08:09 36.6 C 76 17 117/67 98 Room Air 04/09/23 07:33 53 L 04/09/23 03:35 36.6 C 70 18 148/70 H 96 Room Air 04/09/23 00:08 54 L Laboratory Results Short CBC 04/08/23 04/09/23 Range/Units 14:35 06:31 WBC 6.88 6.09 (4.8-10.8) K/ul Hgb 11.8 L 10.6 L (14.0-18.0) g/dl Hct 35.1 L 32.2 L (42.0-52.0) % Plt Count 347 279 (130-400) K/uL BMP 04/08/23 04/09/23 14:35 06:32 Sodium 136 137 Potassium 3.9 4.1 Chloride 102 107 Carbon Dioxide 26 24 BUN 21 16 Creatinine 1.61 H 1.37 Glucose 119 H 98 Calcium 8.5 L 8.0 L Liver Function 04/08/23 Range/Units 14:35 Total Bilirubin 0.4 (0.2-1.0) mg/dl Direct Bilirubin 0.1 (0-0.2) mg/dl AST 18 (13-39) U/L ALT 9 (7-52) U/L Alkaline Phosphatase 72 (34-104) U/L Albumin 3.1 L (3.4-5.0) gm/dl Urine 04/08/23 Range/Units 16:25 Urine Color Maries Urine Appearance Clear (Clear) Urine pH 7.0 (4.5-7.5) Ur Specific [place] 1.034 H (1.000-1.030) Urine Protein Negative (Negative) Urine Glucose (UA) Negative (Negative) Medications Administered Current Inpatient Medications Acetaminophen (Acetaminophen 325 Mg Tab) 650 mg PO Q4H PRN PRN Reason: Moderate Pain (Scale 4, 5, 6) Stop: 05/08/23 18:36 Albuterol (Albuterol Hfa 8 Gm Inhaler) 2 puffs INH QID PRN PRN Reason: Shortness Of Breath Stop: 05/08/23 18:36 Aspirin (Aspirin 81 Mg Ectab) 81 mg PO DAILY [facility] Stop: 05/09/23 08:59 Last Admin: 04/09/23 08:46 Dose: 81 mg Clopidogrel Bisulfate (Clopidogrel Bisulfate 75 Mg Tab) 75 mg PO DAILY [facility] Stop: 05/09/23 08:59 Last Admin: 04/09/23 08:46 Dose: 75 mg Dextrose (Dextrose 50% 50 Ml Syringe) 25 - 50 ml IV UD PRN; Protocol PRN Reason: Hypoglycemia Protocol Stop: 05/08/23 18:36 Docusate Sodium (Docusate Sodium 100 Mg Cap) 100 mg PO BID [facility] Stop: 05/08/23 20:59 Last Admin: 04/09/23 08:46 Dose: 100 mg Doxazosin Mesylate (Doxazosin Mesylate 4 Mg Tab) 8 mg PO HS [facility] Stop: 05/08/23 20:59 Last Admin: 04/08/23 20:03 Dose: 8 mg Fluoxetine HCl (Fluoxetine Hcl 20 Mg Cap) 20 mg PO DAILY [facility] Stop: 05/09/23 08:59 Last Admin: 04/09/23 08:46 Dose: 20 mg Glucagon (Glucagon For Inj 1 Mg Vial) 1 mg SQ UD PRN; Protocol PRN Reason: Hypoglycemia Protocol Stop: 05/08/23 18:36 Glucose (Glucose 10 Tab/Tube) 4 - 8 tab PO UD PRN; Protocol PRN Reason: Hypoglycemia Treatment Stop: 05/08/23 18:36 Glucose (Glucose 40% Gel 15 Gm Tube) 15 - 30 gm PO UD PRN; Protocol PRN Reason: Hypoglycemia Protocol Stop: 05/08/23 18:36 Heparin Sodium (Porcine) (Heparin Sod 5,000 Unit/0.5 Ml Vial) 5,000 units SQ Q8 [facility] Stop: 05/08/23 21:59 Last Admin: 04/09/23 05:05 Dose: 5,000 units Piperacillin Sod/Tazobactam (Sod 4.5 gm/ Dextrose) 120 mls @ 30 mls/hr IV Q8H [facility]; Protocol Stop: 04/18/23 20:59 Last Infusion: 04/09/23 09:06 Dose: Infused Insulin Aspart (Insulin Aspart Per Unit Charge) 0 units SC ACHS [facility] Stop: 05/08/23 20:59 Last Admin: 04/09/23 08:45 Dose: 6 units Insulin Glargine (Lantus Per Unit Charge) 0 units SQ HS [facility]; Protocol Stop: 05/09/23 20:59 Metoprolol Tartrate (Metoprolol Tartrate 25 Mg Tab) 25 mg PO BID [facility] Stop: 05/08/23 20:59 Last Admin: 04/09/23 08:46 Dose: 25 mg Miscellaneous (Carbohydrates For Hypoglycemia ) 15 - 30 gm PO UD PRN PRN Reason: Hypoglycemia Protocol Stop: 05/08/23 18:36 Miscellaneous Information (Pharmacy Glycemic Mgmt Consult) 1 each N/A UD PRN PRN Reason: Consult Stop: 05/08/23 18:36 Ondansetron HCl (Ondansetron Inj 2 Mg/Ml 2 Ml Vial) 4 mg IV Q4H PRN PRN Reason: Nausea And Vomiting Stop: 05/08/23 18:36 Rosuvastatin Calcium (Rosuvastatin Calcium 10 Mg Tab) 10 mg PO DAILY [facility] Stop: 05/09/23 08:59 Last Admin: 04/09/23 08:47 Dose: 10 mg (1) Sepsis Acute renal failure type: unspecified Sepsis acute organ dysfunction status: with acute organ dysfunction Sepsis type: sepsis due to unspecified organism Severe sepsis acute organ dysfunction type: acute renal failure Severe sepsis shock status: unspecified Qualified Code(s): A41.9 - Sepsis, unspecified organism; R65.20 - Severe sepsis without septic shock; N17.9 - Acute kidney failure, unspecified
[2023-04-09] MEDS: MAGNESIUM OXIDE 400 MG TAB PO SCH ×2 (13:51→21:06)
[2023-04-09] MEDS ORDERED: LANTUS PER UNIT CHARGE SQ SCH (21:00)
[2023-04-09] MEDS ORDERED: LANTUS PER UNIT CHARGE SC SCH (21:00)
[2023-04-09] MEDS: DOXAZosin MESYLATE 4 MG TAB PO SCH (21:07)
[2023-04-09] MEDS ORDERED: CALCIUM CARBONATE 500 MG CHEWABLE TAB PO PRN (21:27)
--- NOTE | 2023-04-09 22:49 | Communication Note ---
Date of Service: April 09, 2023 Patient with dark emesis possibly blood as per RN. Earlier heartburn complaints. No actual abdominal pain as per RN on further questioning. AP Possible UGIB H&H now Hold antiplatelet Rx and heparin subcu IV PPI n.p.o. May need GI consult
[2023-04-09] MEDS ORDERED: PANTOprazole 80 MG in DEXTROSE 5% 100 ML IV ONE (23:00)
[2023-04-09] MEDS ORDERED: SODIUM CHLORIDE 0.9% 1000ML 1,000 ML IV ONE (23:06)
[2023-04-09 23:26] LABS: Hematocrit (blood only) 34.3 % (42.0-52.0); Hemoglobin 11.5 g/dl (14.0-18.0)
[2023-04-09] MEDS ORDERED: Nursing to Pharmacy Communication SCH (23:45)
[2023-04-10] MEDS: INSULIN ASPART PER UNIT CHARGE SC SCH ×4 (05:29→20:19)
[2023-04-10] MEDS: PIPERACILLIN/TAZOBACTAM 4.5 GM in DEXTROSE 5% 100 ML IV SCH ×3 (05:37→20:07)
[2023-04-10 06:30] LABS: BUN Creatinine Ratio 9.1 (10-20); Calcium 8.2 mg/dl (8.6-10.3); Creatinine Clr Calc Pharmacy 59.1 ml/min; Est GFR (African American) 71.6 ml/min; Est GFR (Non-African American) 61.8 ml/min; Magnesium 1.6 mg/dl (1.7-2.4); Potassium 3.8 mmol/L (3.5-5.1)
[2023-04-10] MEDS: MAGNESIUM OXIDE 400 MG TAB PO SCH ×2 (08:49→20:18)
[2023-04-10] MEDS: FLUoxetine HCL 20 MG CAP PO SCH (08:49)
[2023-04-10] MEDS: METOPROLOL TARTRATE 25 MG TAB PO SCH ×2 (08:49→20:19)
[2023-04-10] MEDS: PANTOprazole 40 MG in SYRINGE 0 ML IV SCH ×2 (08:50→20:18)
[2023-04-10] MEDS: ROSUVASTATIN CALCIUM 10 MG TAB PO SCH (08:50)
[2023-04-10] MEDS: DOCUSATE SODIUM 100 MG CAP PO SCH ×2 (08:50→20:18)
[2023-04-10 09:03] LABS: Hematocrit (blood only) 32.5 % (42.0-52.0); Hemoglobin 10.6 g/dl (14.0-18.0)
--- NOTE | 2023-04-10 12:15 | Hospitalist Progress Note ---
Date of Service April 10, 2023 Assessment & Plan (1) Sepsis: (2) UTI (urinary tract infection): (3) Diabetes: (4) CAD (coronary artery disease): Plan This is an 82-year-old man who is a prisoner, wheelchair-bound with significant past medical history of CAD on aspirin and Plavix, diastolic CHF, COPD, insulin- dependent T2DM and BPH who presents to ED after sustaining syncopal episode. Recent hospitalization 03/17/03/23 at [facility] 2/2 sepsis in setting of acute cholecystitis s/p Lap thania ?Syncopal episode Possible Severe Sepsis in setting of hypotension and dx with UTI as OP in alf source: Urine, urosepsis pt met criteria for sepsis in setting of hypotension, lactic acidosis, altered mental status and reported UTI dx at alf CTA chest negative for PE or PNA. UA abnormal. Syncope in setting of hypotension. Patient improved significantly after initial ED management and remains stable since - Urine clx with radha likely colonization. Blood clx negative. Will however continue empiric zosyn for now given encephalopathy and possible sepsis on admission. - OP urine clx results from the correctional facility was negative ?Hematemesis r/o UGI bleed- 1 episode yesterday, no recurrence. Seen by GI and recommendations noted. H and H has been stable. Continue trending, continue IV PPI, clear liq diet for now and advance as tolerated AMS- Encephalopathic today, unclear cause. Continue IVF, empiric antibiotics, monitor clinically. DONNIE bun/cr 21 and 1.61 Cr improving after IVF and holding diuretics. Cr down to 1.61->1.37->1.1 Recheck in am. Hold diuretics for now. Avoid nephrotoxic agents CAD continue asa, metoprolol, plavix, imdur Hold bumex and lisinopril due to donnie and hypotension IDDM2 lantus/novolog per protocol a1c 7.0 01/13/23 Chronic conditions: COPD - no acute exacerbation HLD- statin therapy Chronic anemia - hgb at 11.8, last hgb 13.2, recently underwent lap thania, monitor h/h BCC, nose status post Moh's surgery/failed flap reconstruction (December 2022) and subsequent takedown (01/2023) DVTppx:SQ Heparin Dispo- Not stable for discharge today. Trending H and H for possible GI bleed and monitoring mental status for encephalopathy Admission and Anticipated Discharge Date Admission Date: April 08, 2023 Subjective Patient was seen and examined at bedside. He is lethargic today. Arouses to questions but falls back to sleep. He had an episode of dark emesis yesterday but nothing today. No fever, chills, CP, SOB. Review of Systems Review of Systems: All systems reviewed & are unremarkable except as noted in Subjective Results & Data Results & Data Vital Signs (Past 12 Hours) Vital Signs Temp Pulse Pulse Resp BP Pulse Ox O2 Del Method 04/10/23 12:11 36.0 C L 50 L 15 168/83 H Room Air 04/10/23 11:06 59 L 04/10/23 07:17 37 C 68 16 169/94 H 95 Room Air 04/10/23 03:41 36.5 C 65 18 157/78 H 93 Room Air (1) Sepsis Acute renal failure type: unspecified Sepsis acute organ dysfunction status: with acute organ dysfunction Sepsis type: sepsis due to unspecified organism Severe sepsis acute organ dysfunction type: acute renal failure Severe sepsis shock status: unspecified Qualified Code(s): A41.9 - Sepsis, unspecified organism; R65.20 - Severe sepsis without septic shock; N17.9 - Acute kidney failure, unspecified
--- NOTE | 2023-04-10 12:41 | Gastrointestinal Consultation ---
Date of Consultation April 10, 2023 Assessment & Plan (1) Vomiting: No signs of onging or acute GI bleeding or recurrent emesis including hematemesis and or melena. Possibly esophagitis or gastritis if had some concern of coffee grounds stable Hb Ok with IV BID PPI if any further bleeding, would change to IV PPI gtt Call with questions History of Present Illness Reason for Consultation: Coffee-ground emesis Attending Physician: Brian Montenegro MD History of Present Illness 82-year-old man who is a prisoner, wheelchair-bound with significant past medical history of CAD on aspirin and Plavix, diastolic CHF, COPD, insulin- dependent T2DM and BPH who presents to ED after sustaining syncopal episode. According to report patient was in the bathroom when he had a syncopal episode and has since had altered mental status. At present he was recently started on Cipro and has had 2 doses due to concerns for urinary tract infections that was diagnosed at the present. Patient was hypotensive while in ED and a central line was placed. He was resuscitated with 2 L of IV fluid and his blood pressures have since normalized. He was recently hospitalized at [facility] 03/17 to 03/16 secondary to sepsis in setting of cholecystitis. He was taken to the OR on 03/19 for laparoscopic cholecystectomy and drain placement. He was medically [facility]23[facility]23. His incisions have healed well. He is currently been treating for UTI, apparently last night he had 1 episode of emesis that was concerning that could have been dark potentially with blood tinge in it. He is unable to provide a history today as he is disoriented and quite lethargic, but per the RN today this happened overnight and the history was provided with that, [facility] guards were in the room and stated that he has had no further vomiting today. He has had no bowel movements including no melena, imaging on this hospitalization does not show obstruction or other signs of acute abdominal pathology Allergies Allergy/AdvReac Type Severity Reaction Status Date / Time Sulfa (Sulfonamide Allergy Unknown ON SCI Verified 04/08/23 16:54 Antibiotics) [facility] MED LIST Home Medications Medication Instructions Recorded Confirmed Type albuterol sulfate 90 mcg/actuation 2 puff inhalation QID PRN 02/15/23 04/08/23 History aerosol inhaler Shortness Of Breath aspirin 81 mg tablet,delayed 81 mg PO DAILY 02/15/23 04/08/23 History release bumetanide 1 mg tablet 1 mg PO DAILY 02/15/23 04/08/23 History ciclesonide 160 mcg/actuation 2 puff inhalation BID 02/15/23 04/08/23 History aerosol inhaler (Alvesco) clopidogrel 75 mg tablet (Plavix) 75 mg PO DAILY 02/15/23 04/08/23 History cranberry extract 250 mg tablet 250 mg PO DAILY 02/15/23 04/08/23 History doxazosin 8 mg tablet 8 mg PO HS 02/15/23 04/08/23 History fluoxetine 20 mg tablet 20 mg PO DAILY 02/15/23 04/08/23 History insulin human U-100 NPH-regulr 12 unit subcut BID 02/15/23 04/08/23 History 70-30 mix 100 unit/mL subcutaneous susp (Novolin 70/30 U-100 Insulin) insulin regular human 100 unit/mL 1 sliding scale dose subcut 02/15/23 04/08/23 History injection solution (Novolin R USEASDIRECTD Regular U-100 Insulin) isosorbide mononitrate 30 mg 30 mg PO DAILY 02/15/23 04/08/23 History tablet,extended release 24 hr latanoprost 0.005 % eye drops 1 drp ophthalmic (eye) PM 02/15/23 04/08/23 History lisinopril 40 mg tablet 40 mg PO DAILY 02/15/23 04/08/23 History menthol 0.44 %-zinc oxide 20.6 % 1 applic topical QID PRN flare ups 02/15/23 04/08/23 History topical ointment (Calmoseptine) metoprolol tartrate 50 mg tablet 50 mg PO BID 02/15/23 04/08/23 History rosuvastatin 10 mg tablet 10 mg PO DAILY 02/15/23 04/08/23 History acetaminophen 500 mg tablet 500 mg PO TID PRN Pain 04/08/23 04/08/23 History (Tylenol Extra Strength) ciprofloxacin HCl 500 mg tablet 500 mg PO Q12H 04/08/23 04/08/23 History docusate sodium 100 mg capsule 100 mg PO BID 04/08/23 04/08/23 History ferrous gluconate 324 mg (38 mg 324 mg PO DAILY 04/08/23 04/08/23 History iron) tablet Patient History Medical History CHF (congestive heart failure) COPD (chronic obstructive pulmonary disease) Diabetes High blood pressure Surgical History H/O inguinal hernia repair History of appendectomy Hx laparoscopic cholecystectomy Family History Father Coronary heart disease Diabetes Social History Smoking Status: Former smoker Tobacco Type: Cigarettes Do You Dip or Chew Tobacco: No; Hx Alcohol Use: No Hx Substance Use: No Preferred Language: Pashto Communication Ability: confusion Bulb Grower Required: No Beliefs That Will Affect Care: None Current Living Situation: Other Current Living Situation Comment: [facility] Other Information That Helps Us Care for You: No Feels Safe at Home: Yes Safety Concerns: Feels Safe At This Time Assistive Devices: Wheelchair Review of Systems Review of Systems: Unobtainable due to cognitive status Physical Exam Physical Exam: Clinically ill-appearing, his blood in his nostrils and a distorted right nares, he has a wound on his right superior head Sounds soft nontender nondistended no Peripheral edema Lethargic Oriented to person only Results & Data Vital Signs (Past 12 Hours) Vital Signs Temp Pulse Pulse Resp BP Pulse Ox O2 Del Method 04/10/23 12:11 36.0 C L 50 L 15 168/83 H Room Air 04/10/23 11:06 59 L 04/10/23 07:17 37 C 68 16 169/94 H 95 Room Air 04/10/23 03:41 36.5 C 65 18 157/78 H 93 Room Air Laboratory Results Hemoglobin 10.6 the same as yesterday morning,
[2023-04-10 15:28] LABS: Hematocrit (blood only) 33.4 % (42.0-52.0); Hemoglobin 10.9 g/dl (14.0-18.0)
[2023-04-10] MEDS: DOXAZosin MESYLATE 4 MG TAB PO SCH (20:18)
[2023-04-10 20:54] LABS: Hematocrit (blood only) 33.3 % (42.0-52.0); Hemoglobin 10.9 g/dl (14.0-18.0)
[2023-04-11] MEDS: PIPERACILLIN/TAZOBACTAM 4.5 GM in DEXTROSE 5% 100 ML IV SCH ×2 (06:10→12:54)
[2023-04-11 06:48] LABS: Hematocrit (blood only) 31.7 % (42.0-52.0); Hemoglobin 10.2 g/dl (14.0-18.0); Mean Corpuscular Hemoglobin 28.1 pg (25.0-34.0); Mean Corpuscular Hgb Conc 32.2 g/dL (32.0-36.0); Mean Corpuscular Volume 87.3 fL (80.0-100.0); Mean Platelet Volume 10.6 fL (9.4-12.4); Platelet Count 234 K/uL (130-400); RDW Coefficient of Variation 15.2 % (11.5-14.5); RDW Standard Deviation 48.8 fL (36.4-46.3); Red Blood Count 3.63 M/uL (4.70-6.10)
[2023-04-11 07:12] LABS: BUN Creatinine Ratio 6.9 (10-20); Calcium 8.1 mg/dl (8.6-10.3); Creatinine Clr Calc Pharmacy 59.5 ml/min; Est GFR (African American) 78.4 ml/min; Est GFR (Non-African American) 67.7 ml/min; Magnesium 1.6 mg/dl (1.7-2.4)
[2023-04-11] MEDS: INSULIN ASPART PER UNIT CHARGE SC SCH ×2 (08:45→12:53)
[2023-04-11] MEDS: FLUoxetine HCL 20 MG CAP PO SCH (08:46)
[2023-04-11] MEDS: METOPROLOL TARTRATE 25 MG TAB PO SCH (08:47)
[2023-04-11] MEDS: ROSUVASTATIN CALCIUM 10 MG TAB PO SCH (08:47)
[2023-04-11] MEDS: DOCUSATE SODIUM 100 MG CAP PO SCH (08:47)
[2023-04-11] MEDS ORDERED: LANTUS PER UNIT CHARGE SC SCH (09:00)
[2023-04-11] MEDS ORDERED: MAGNESIUM CHLORIDE W/CALCIUM 64MG DELAYED REL TAB PO SCH (09:00)
[2023-04-11] MEDS: PANTOprazole 40 MG in SYRINGE 0 ML IV SCH (10:17)
--- NOTE | 2023-04-11 11:06 | Discharge Summary ---
Date of Service April 11, 2023 Admission HPI Per Admitting Provider This is an 82-year-old man who is a prisoner, wheelchair-bound with significant past medical history of CAD on aspirin and Plavix, diastolic CHF, COPD, insulin- dependent T2DM and BPH who presents to ED after sustaining syncopal episode. According to report patient was in the bathroom when he had a syncopal episode and has since had altered mental status. At present he was recently started on Cipro and has had 2 doses due to concerns for urinary tract infections that was diagnosed at the present. Patient was hypotensive while in ED and a central line was placed. He was resuscitated with 2 L of IV fluid and his blood pressures have since normalized. He initially had a lactic acid at 3.1 and after resuscitation returned to normal at 1.7. During my evaluation patient was awake alert and answering questions appropriately. He states he remembers being in the bathroom. He was having difficulty taking medications whenever he got, "sick to his stomach." Due to being sick in the stomach he opted to lie on the floor. He states he recalls all events and he denies passing out. He is alert and able to tell me his name, believes he is at [facility], is aware that he resides at the [facility], and aware of the year. He also recalls recently being hospitalized 1 month ago and having his gallbladder removed. He states he is feeling much better than previously. In ED he again received 2 L o f IV fluid as well as IV Zosyn. Of significance patient was hospitalized done at [facility] 03/17 to 03/16 secondary to sepsis in setting of cholecystitis. He underwent cardiac work-up for restratification and was taken to the OR on for laparoscopic cholecystectomy and drain placement. He tolerated the procedure well and diet was advanced as tolerated. He was medically discharged back to the [facility] on 03/23/2023. His incisions have healed well. He overall feels his appetite is well. Admission Exam Per Admitting Provider Constitutional: Chronically ill appearing male, unkempt, vitals as above, NAD, sitting up in bed, answers questions approp, conversing easily Head: Normocephalic, Atraumatic Eyes: PERRL, conjunctivae normal, anicteric sclerae ENMT: external ear and nose normal, oropharynx normal dry membranes Neck: trachea midline, no thyromegaly normal visual inspection Respiratory: shallow respiratory effort, lungs clear to auscultation with tracheal breath sounds, mild rhonchi, no wheeze/rale. Normal insp/exp effort, no accessory muscle use Cardiovascular: RRR, no murmur, no edema Vessels: no JVD or carotid bruit Chest: normal inspection of chest Abdomen: normal bowel sounds, soft, nontender, + lap thania incisions CDI, no erythema Musculoskeletal: no cyanosis or clubbing, extremities AROM x4 Skin: no rashes, warm and dry normal turgor Neurologic: no face palsy, no dysarthria CN's II-XI intact bilaterally and moves all extremities Psychiatric: A+Ox3, euthymic affect Lymphatic: no cervical or axillary lymphadenopathy : deferred Principal Diagnosis Hypotension likely due to hypovolemia, altered mental status ?syncope Discharge Exam General: Lying comfortably in bed, not in distress, on room air HEENT: EOMI, PAUL, MMM, deformed rt alar nasi due to surgery Chest: Fair breath sounds bilaterally, no wheezes or crackles CVS: Regular rate and rhythm, normal heart sounds, no murmur Abdomen: Soft, non tender, not distended, normal bowel sounds Neuro: Awake, alert, oriented, conversing well, non focal Extremities: No cyanosis, clubbing or edema, cuffed Discharge Data Allergies Allergy/AdvReac Type Severity Reaction Status Date / Time Sulfa (Sulfonamide Allergy Unknown ON SCI Verified 04/08/23 16:54 Antibiotics) [facility] MED LIST Consultations 04/08/23 17:17 ED Decision to Admit Stat 04/10/23 09:53 Consult Gastroenterology Routine Ordered Studies 04/08/23 14:26 CT abd pelvis IV con only Stat CT angio chest PE protocol Stat CT cervical spine wo con Stat CT head/brain wo con Stat Laboratory Results WBC 5.40 K/ul (4.8-10.8) 04/11/23 06:14 RBC 3.63 M/uL (4.70-6.10) L 04/11/23 06:14 Hgb 10.2 g/dl (14.0-18.0) L 04/11/23 06:14 POC Hgb 12.2 g/dl (14.0-18.0) L 04/08/23 14:50 Hct 31.7 % (42.0-52.0) L 04/11/23 06:14 POC Hct 36 % (42-52) L 04/08/23 14:50 MCV 87.3 fL (80.0-100.0) 04/11/23 06:14 MCH 28.1 pg (25.0-34.0) 04/11/23 06:14 MCHC 32.2 g/dL (32.0-36.0) 04/11/23 06:14 RDW Std Deviation 48.8 fL (36.4-46.3) H 04/11/23 06:14 RDW Coeff of Sandrita 15.2 % (11.5-14.5) H 04/11/23 06:14 Plt Count 234 K/uL (130-400) 04/11/23 06:14 MPV 10.6 fL (9.4-12.4) 04/11/23 06:14 Immature Gran % (Auto) 0.3 % 04/08/23 14:35 Neut % (Auto) 61.7 % 04/08/23 14:35 Lymph % (Auto) 21.2 % 04/08/23 14:35 Eaton % (Auto) 13.8 % 04/08/23 14:35 Eos % (Auto) 2.3 % 04/08/23 14:35 Baso % (Auto) 0.7 % 04/08/23 14:35 Neut # (Auto) 4.24 K/uL (1.40-6.50) 04/08/23 14:35 Lymph # (Auto) 1.46 K/uL (1.2-3.4) 04/08/23 14:35 Eaton # (Auto) 0.95 K/uL (0.11-0.59) H 04/08/23 14:35 Eos # (Auto) 0.16 K/uL (0-0.50) 04/08/23 14:35 Baso # (Auto) 0.05 K/uL (0-0.2) 04/08/23 14:35 Immature Gran # (Auto) 0.02 K/uL (0.01-0.20) 04/08/23 14:35 PT 11.9 Seconds (9.0-12.0) 04/08/23 14:35 INR 1.1 (0.9-1.1) 04/08/23 14:35 APTT 25.9 Seconds (21.0-31.0) 04/08/23 14:35 PTT Ratio 0.9 04/08/23 14:35 VBG pH 7.34 (7.36-7.41) L 04/08/23 14:52 VBG pCO2 43 mmHg (38-50) 04/08/23 14:52 VBG pO2 38 mmHg 04/08/23 14:52 VBG HCO3 23 mmol/L 04/08/23 14:52 VBG O2 Saturation < 60.0 % 04/08/23 14:52 VBG Base Excess -2.6 mEq/L 04/08/23 14:52 POC Sodium 137 mmol/L (135-144) 04/08/23 14:50 Sodium 137 mmol/L (136-145) 04/11/23 06:14 POC Potassium 3.9 mmol/L (3.3-5.0) 04/08/23 14:50 Potassium 4.0 mmol/L (3.5-5.1) 04/11/23 06:14 POC Chloride 101 mmol/L (101-112) 04/08/23 14:50 Chloride 107 mmol/L (98-107) 04/11/23 06:14 Carbon Dioxide 27 mmol/L (21-32) 04/11/23 06:14 POC Total CO2 25 mmol/L (24-31) 04/08/23 14:50 Anion Gap 3 (3-11) 04/11/23 06:14 POC Anion Gap 15.0 mmol/L (16-25) L 04/08/23 14:50 POC BUN 22 mg/dl (7-18) H 04/08/23 14:50 BUN 7 mg/dl (6-23) 04/11/23 06:14 Creatinine 1.02 mg/dl (0.6-1.4) 04/11/23 06:14 POC Creatinine 1.8 mg/dl (0.6-1.3) H 04/08/23 14:50 Est Cr Clr Drug Dosing 59.5 ml/min 04/11/23 06:14 Est GFR ( Amer) 78.4 ml/min 04/11/23 06:14 Est GFR (Non-Af Amer) 67.7 ml/min 04/11/23 06:14 BUN/Creatinine Ratio 6.9 (10-20) L 04/11/23 06:14 Glucose 129 mg/dl (70-99(Fasting)) H 04/11/23 06:14 POC Glucose 133 mg/dl (70-99) H 04/11/23 07:28 POC Glucose (other) 118 mg/dl (70-99) H 04/08/23 14:50 Estimat Average Glucose 120 mg/dl 04/09/23 06:31 Hemoglobin A1c 5.8 % (4.5-5.6) H 04/09/23 06:31 Lactate 1.7 mmol/L (0.4-2.0) 04/08/23 17:30 Calcium 8.1 mg/dl (8.6-10.3) L 04/11/23 06:14 POC Ioniz Calcium Donell 1.02 mmol/l (1.12-1.32) L 04/08/23 14:50 Magnesium 1.6 mg/dl (1.7-2.4) L 04/11/23 06:14 Total Bilirubin 0.4 mg/dl (0.2-1.0) 04/08/23 14:35 Direct Bilirubin 0.1 mg/dl (0-0.2) 04/08/23 14:35 AST 18 U/L (13-39) 04/08/23 14:35 ALT 9 U/L (7-52) 04/08/23 14:35 Alkaline Phosphatase 72 U/L (34-104) 04/08/23 14:35 Troponin I High Sens 6.0 pg/ml (0-20) 04/08/23 14:35 Total Protein 6.3 gm/dl (6.0-8.3) 04/08/23 14:35 Albumin 3.1 gm/dl (3.4-5.0) L 04/08/23 14:35 Triglycerides 110 mg/dl (0-150) 04/09/23 06:32 Cholesterol 85 mg/dl (0-200) 04/09/23 06:32 LDL Cholesterol, Calc 36 mg/dl 04/09/23 06:32 VLDL Cholesterol, Calc 22 mg/dl (0-30) 04/09/23 06:32 HDL Cholesterol 27 mg/dl 04/09/23 06:32 Cholesterol/HDL Ratio 3.1 (0-5) 04/09/23 06:32 Procalcitonin < 0.05 ng/ml (0-0.5) 04/08/23 14:35 Urine Color Sioux 04/08/23 16:25 Urine Appearance Clear (Clear) 04/08/23 16:25 Urine pH 7.0 (4.5-7.5) 04/08/23 16:25 Ur Specific [place] 1.034 (1.000-1.030) H 04/08/23 16:25 Urine Protein Negative (Negative) 04/08/23 16:25 Urine Glucose (UA) Negative (Negative) 04/08/23 16:25 Urine Ketones Negative (Negative) 04/08/23 16:25 Urine Blood 3+ (Negative) H 04/08/23 16:25 Urine Nitrite Negative (Negative) 04/08/23 16:25 Urine Bilirubin Negative (Negative) 04/08/23 16:25 Urine Urobilinogen Negative (Negative) 04/08/23 16:25 Ur Leukocyte Esterase 2+ (Negative) H 04/08/23 16:25 Urine WBC (Auto) >30 /hpf (0-5) H 04/08/23 16:25 Urine RBC (Auto) >30 /hpf (0-4) H 04/08/23 16:25 U Hyaline Cast (Auto) 1-5 /lpf (0-5) 04/08/23 16:25 U Epithel Cells (Auto) 20-30 /lpf (0-5) H 04/08/23 16:25 Urine Bacteria (Auto) Negative (Negative) 04/08/23 16:25 Nasal Screen MRSA (PCR) Positive (Negative) A 04/08/23 22:30 Urine Opiates Screen Neg (Neg) 04/08/23 16:25 Ur Methadone, Qual Neg (Neg) 04/08/23 16:25 Urine Barbiturates Neg (Neg) 04/08/23 16:25 Ur Phencyclidine (PCP) Neg (Neg) 04/08/23 16:25 U Amphetamin/Meth Scrn Neg (Neg) 04/08/23 16:25 MDMA (Ecstasy) Screen Neg (Neg) 04/08/23 16:25 U Benzodiazepines Scrn Neg (Neg) 04/08/23 16:25 Ur Cocaine Metabolite Neg (Neg) 04/08/23 16:25 U Marijuana (THC) Screen Neg (Neg) 04/08/23 16:25 SARS-CoV-2 (PCR) NEGATIVE (Negative) 04/08/23 14:32 Influenza Type A (PCR) Negative (Neg) 04/08/23 14:32 Influenza Type B (PCR) Negative (Neg) 04/08/23 14:32 RSV (RT-PCR) Negative (Neg) 04/08/23 14:32 Blood Type A Positive 04/08/23 14:52 Antibody Screen NEGATIVE 04/08/23 14:52 Impressions Abdomen/Pelvis CT 04/08/23 14:26 CT abd pelvis IV con only CLINICAL HISTORY: syncope TECHNIQUE: Helical axial images of the abdomen and pelvis were obtained and displayed. Automated dose lowering techniques and/or adjustment according to patient size were utilized for this exam. This exam was performed with intravenous contrast. COMPARISON: Comparison is made to CT abdomen pelvis 03/17/2023 FINDINGS: Lower chest: Bibasilar atelectasis versus scarring is seen. Liver: Unremarkable. No focal lesions are seen. Gallbladder and biliary tree: Patient is status post cholecystectomy. No intra- or extrahepatic biliary ductal dilation. Pancreas: Unremarkable, no focal lesions. Spleen: Unremarkable. Adrenals: Unremarkable. Kidneys and ureters: Unremarkable. Bladder: Lloyd catheter is seen and appears to lie within the prosthetic urethra Reproductive organs: Unremarkable. Bowel: Diverticulosis is seen without diverticulitis. The appendix is normal. Lymph nodes Retroperitoneal: Unremarkable. Pelvic: Unremarkable. Mesenteric: Unremarkable. Peritoneum: Normal. Vessels: Atherosclerotic calcifications are seen. Abdominal wall: Postsurgical changes are seen in the bilateral inguinal region compatible with hernia repair. Bones: Degenerative changes in the visualized spine. IMPRESSION: 1. No acute abnormalities. 2. Redemonstration of low-lying Lloyd catheter balloon which may be within the prostatic urethra. ACT 112: Negative or not required by law. Electronically signed by: Juan Pennington M.D. 04/08/2023 4:[address] 04/08/23 14:26 CT cervical spine wo con CT DOSE: 3293.94 mGy.cm CLINICAL HISTORY: 82 years-old Male with symcope. Acute neck injury status post fall COMPARISON: Head CT of same day, chest CT 02/15/2023. TECHNIQUE: Multiple axial CT images of the cervical spine were obtained without contrast. A dose lowering technique was utilized adhering to the principles of ALARA. FINDINGS: Advanced multilevel degenerative changes. Unchanged mild chronic superior endplate compression at T1. No acute cervical spine fracture or subluxation identified. Small left mastoid effusion. The cervical soft tissues appear unremarkable. The visualized lung apices appear clear. IMPRESSION: No acute cervical spine fracture or subluxation. ACT 112: Negative or not required by law. The above report was generated using voice recognition software. It may contain grammatical, syntax or spelling errors. Electronically signed by: Hayden Garrett M.D. 04/08/2023 4:39 PM Chest CTA 04/08/23 14:26 CT angio chest PE protocol HISTORY: 82 years-old Male with PE. Acute shortness breath with syncope TECHNIQUE: Multiple CTA images of the chest were obtained after the intravenous administration of 115 ml Optiray. Coronal and sagittal MIPS were obtained from the axial data set and were submitted for review. All measurements were obtained according to NASCET criteria. A dose lowering technique was utilized adhering to the principles of ALARA. COMPARISON: CT abdomen and pelvis study of same day, chest CT 02/15/2023 FINDINGS: CTA: Mild cardiomegaly with trace pericardial effusion. Extensive coronary artery calcifications with atherosclerosis of the thoracic aorta. Limited evaluation of the pulmonary arterial tree secondary to respiratory motion and contrast bolus timing. No central pulmonary emboli are identified. CT CHEST: Heterogeneity of the thyroid. No pathologically enlarged lymph nodes. No pneumothorax, pleural effusion, airspace consolidation or pulmonary edema. Emphysema with mild intralobular septal thickening. Subsegmental bibasilar densities favor atelectasis. No suspicious pulmonary nodule or masses ident ified. Mild tracheobronchial secretions. No acute process of the imaged upper abdomen. Moderate hiatal hernia. Cholecystectomy. Nonspecific trace edema within the mikki hepatis. Unremarkable soft tissues. No acute fracture identified. Asymmetry of the sternoclavicular joints is similar to prior. IMPRESSION: 1. No acute posttraumatic intrathoracic abnormality. 2. No acute fracture or pneumothorax identified. 3. Cardiomegaly with emphysema. 4. No pulmonary emboli identified. 5. Additional findings as above. ACT 112: Negative or not required by law. The above report was generated using voice recognition software. It may contain grammatical, syntax or spelling errors. Electronically signed by: Hayden Garrett M.D. 04/08/2023 4:39 PM Chest X-Ray 04/08/23 14:26 XR chest 1V portable CLINICAL HISTORY: Sepsis TECHNIQUE: Single frontal radiograph of the chest was obtained. Comparison: Comparison is made to chest radiograph 03/17/2023 FINDINGS: No lines and tubes are seen. Calcified aortic knob is seen. Lungs are underinflated. A left retrocardiac opacity is again seen. No evidence of pleural effusion or pneumothorax. Partial visualization of a hiatal hernia. IMPRESSION: Underinflated lungs with left retrocardiac opacity likely representing atelectasis. ACT 112: Negative or not required by law. Electronically signed by: Juan Pennington M.D. 04/08/2023 4:[address] 04/08/23 14:26 CT head/brain wo con CLINICAL HISTORY: syncope Technique: Contiguous axial CT images of the head were acquired from the base of the skull to the vertex without intravenous contrast administration. Images were viewed in brain, subdural and bone windows. Automated dose lowering techniques and/or adjustment according to patient size were utilized for this exam. Comparison: Comparison is made to CT head 02/15/2023 Findings: Areas of decreased attenuation are present in the periventricular and subcortical white matter bilaterally consistent with small vessel ischemic disease. Generalized cerebral atrophy with commensurate enlargement of the ventricles, sulci, and cisterns is also present. There is no acute intracranial hemorrhage or evidence of acute territorial infarction. No shift of the midline structures, mass effect, or extra-axial abnormalities are shown. Atherosclerotic calcifications are present in the intracranial segments of the internal carotid arteries. 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 Imaged portions of the paranasal sinuses and mastoid air cells are clear. The orbits appear normal. There are no acute fractures of the calvaria or scalp swelling. Impression: No acute intracranial hemorrhage, no evidence of acute territorial infarction or other acute intracranial disease process. ACT 112: Negative or not required by law. Electronically signed by: Juan Pennington M.D. 04/08/2023 4:14 PM Hospital Course (1) Sepsis: (2) UTI (urinary tract infection): (3) Diabetes: (4) CAD (coronary artery disease): Plan This is an 82-year-old man who is a prisoner, wheelchair-bound with significant past medical history of CAD on aspirin and Plavix, diastolic CHF, COPD, insulin- dependent T2DM and BPH who presents to ED after sustaining syncopal episode. Recent hospitalization 03/17/03/23 at [facility] 2/2 sepsis in setting of acute cholecystitis s/p Lap thania ?Syncopal episode- likely from below. Tele reviewed- not significant. Hypotension on presentation but resolved rapidly with IVF in ED. Suspected hypotension on presentation due to hypovolemia, being on diuretics and probably inadequate oral intake- less likely sepsis as patient dramatically improved and back to normal after IVF in the ED. Blood clx negative, urine clx with low count of radha which is likely colonization as he is on lloyd's. OP urine clx negative from [facility]. Patient has been on empiric zosyn since admission. Will change to augmentin for 3 more days for short course. Also had DONNIE on admission which resolved with IVF and holding of diuretics. Patient was noted to have an episode of dark emesis per RN 2 days back with no recurrence. Started on PPI. H and H has been stable. Seen by GI and recommended PPI. Being discharged on protonix as he is on DAPT. DONNIE- resolved, Cr back to baseline. likely related to hypovolemia and his diuretics. Pt had prior admissions for DONNIE, hypovolemia and hypotension; and requires fluid resuscitation. Recommended having his bumex prn rather than daily at discharge. CAD- stable, no CP. continue asa, metoprolol, plavix, imdur IDDM2- continue home meds. HA1c 7.0 01/13/23 COPD - no acute exacerbation HLD- statin therapy BCC, nose status post Moh's surgery/failed flap reconstruction (December 2022) and subsequent takedown (01/2023) Hypomagnesemia- continue oral supplementation I spoke to Sugar CHÁVEZ from the correction facility and signed out the patient. Patient is comfortable and stable for discharge back to the facility. Total Time Total Time Spent Total Time Spent (In Minutes): 40 Discharge Plan Discharge Items Patient Disposition: [facility] Reason For Visit: SYNCOPAL EPISODE Discharge Diagnosis: Hypotension likely due to hypovolemia, altered mental status ?syncope Activity: Resume your previous activity Non-emergency contact: Primary Care Provider Call non-emergency contact if: you have any medication questions, your symptoms worsen and you have a fever Follow-up/Referrals: Gregory MCCORMICK [Primary Care Provider] - Diet: Heart Healthy Addtl Attending Provider Instructions: Continue the antibiotic augmentin twice daily for 3 more days Recommend having the bumex as needed for swelling or shortness for breath rather than daily as the patient has recurrent hypotension and DONNIE while on it requiring IVF resuscitation and discontinuation of bumex in the hospital. Recommend PPI like protonix for GI protection as you are on aspirin and plavix. Recommend continued lloyd care to prevent recurrent catheter associated UTI. Change lloyd at least every 28 days or sooner if needed. Pending Studies at Discharge: No Stand-Alone Forms: My [facility] Skilled Items Patient informed of condition?: No Discharge Level of Care: Other Communicable Disease: No Discharge Prognosis: Stable Lines: None Urinary Catheter: Yes Medications and DC Order Prescriptions: New Mag 64 64 mg Tablet,Delayed Release (Dr/Ec) 64 mg PO DAILY Qty: 5 0RF amoxicillin-pot clavulanate 875-125 mg tablet 1 tab PO BID Qty: 6 0RF pantoprazole [Protonix] 40 mg tablet,delayed release (DR/EC) 40 mg PO DAILY 28 Days Qty: 28 0RF Continued latanoprost 0.005 % Drops 1 drp OPHTHALMIC (EYE) PM isosorbide mononitrate 30 mg Tablet Extended Release 24 Hr 30 mg PO DAILY Novolin 70/30 U-100 Insulin 100 unit/mL (70-30) Suspension 12 unit SUBCUT BID Rx Instructions: TAKES AT 0630 & 1530 clopidogrel [Plavix] 75 mg Tablet 75 mg PO DAILY aspirin 81 mg Tablet,Delayed Release (Dr/Ec) 81 mg PO DAILY doxazosin 8 mg Tablet 8 mg PO HS fluoxetine 20 mg Tablet 20 mg PO DAILY Novolin R Regular U-100 Insuln 100 unit/mL Solution 1 sliding scale dose SUBCUT USEASDIRECTD Rx Instructions: BSG 151-200=2 UNITS, 201-250=4 UNITS, 251-300=6 UNITS, 301-350=8 UNITS, 351- 400=10 UNITS, 401-450=12 UNITS, BSG >451=CALL MD. metoprolol tartrate 50 mg Tablet 50 mg PO BID Rx Instructions: HOLD IF HR < 60 albuterol sulfate 90 mcg/actuation Hfa Aerosol Inhaler 2 puff INHALATION QID PRN (Reason: Shortness Of Breath) lisinopril 40 mg Tablet 40 mg PO DAILY rosuvastatin 10 mg Tablet 10 mg PO DAILY cranberry extract 250 mg Tablet 250 mg PO DAILY Alvesco 160 mcg/actuation Hfa Aerosol Inhaler 2 puff INHALATION BID menthol-zinc oxide [Calmoseptine] 0.44-20.6 % Ointment 1 applic TOPICAL QID PRN (Reason: flare ups) acetaminophen [Tylenol Extra Strength] 500 mg Tablet 500 mg PO TID PRN (Reason: Pain) docusate sodium 100 mg Capsule 100 mg PO BID ferrous gluconate 324 mg (38 mg iron) Tablet 324 mg PO DAILY Changed bumetanide 1 mg Tablet 1 mg PO UD PRN (Reason: SOB, swelling ) Qty: 30 0RF Rx Instructions: as needed for swelling or shortness of breath Discontinued ciprofloxacin HCl 500 mg Tablet 500 mg PO Q12H Rx Instructions: STARTED 04/07/23 WITH PM DOSE FOR 7 DAYS. Discharge Orders: Discharge Order (Routine); Ordered 04/11/23 Ordered By: Brian Montenegro Admission Data Admit Date/Time: 04/08/23 17:31 Attending Provider: Brian Montenegro Admit Provider: Brian Montenegro Primary Care Provider: Gregory MCCORMICK Other Providers: Brian Montenegro ; Federico Rosario Other Interventions: Discharge Summary Assessment (RN) Last Done: 04/11/23 10:24
--- NOTE | 2023-04-13 13:46 | Coding Query ---
CODING QUERY To promote full compliance with coding requirements relating to patient care, provider participation is requested in all cases of car repairer helper uncertainty. Please assist us with the question(s) below: Please clarify the meaning of DONNIE. DONNIE is not a valid abbreviation. Thank you. ( X ) Acute Kidney Injury ( ) Acute Kidney Insufficiency ( ) Other (Specify): Principal Diagnosis: "that condition established after study, to be chiefly responsible for occasioning the admission of the patient to the hospital for care." Co-Existing Principal Diagnosis: "when two or more diagnoses equally meet the criteria for principal diagnosis as determined by the circumstances of admission, diagnostic work up, and/or therapy provided, and the Alphabetic Index, Tabular List, or another coding guideline does not provide sequencing direction, any one of the diagnoses may be sequenced first." "When the physician has documented what appears to be a current diagnosis in the body of the record, but has not included the diagnosis in the final diagnostic statement, the physician should be asked whether the diagnosis should be added." (Source [facility]oding [facility] 2 QTR90. p3-4) JACQUES
== END 2023-04-11 16:06 | DRG 315 ==
LOC: ED 14:08 → 2S 17:31

== ENCOUNTER 2023-06-07 17:10 | Inpatient (IN) ==
[2023-06-07] MEDS ORDERED: CEFEPIME 2,000 MG/20 ML VIAL IV STA (17:58)
--- NOTE | 2023-06-07 17:58 | Emergency Department Note ---
Impression & Plan Hypotension, Weakness, Acute dehydration, Acute UTI, Hypocalcemia, Hypomagnesemia ED Provider Note NAME: BERRY CORDOBA AGE: 82 SEX: M : 1940 ARRIVES VIA: Ambulance INFORMANT: [Patient][ems] ED PROVIDER(S): [Eduardo Chan MD] CHIEF COMPLAINT: Lethargic, weak, decreased urine output HISTORY OF PRESENT ILLNESS: The patient is an 82-year-old male who is an inmate [facility]. He has been weak and tired. His O2 saturation was recorded low, he has only made a small amount of urine in 24 hours. He has a chronic Linares catheter. He has been tired with some chills but denies fever, chest pain, abdominal pain or shortness of breath. He feels thirsty. He was told that he is dehydrated. PMHx/PSHx: See Below SOCIAL HISTORY: See Below. PHYSICAL EXAM: GENERAL: Patient is in no acute distress. HEENT: Mucous membranes dry, no nasal congestion. NECK: No stridor, no adenopathy, no meningismus, trachea is midline. LUNGS: Clear to auscultation bilaterally, no wheeze, no rhonchi, breath sounds equal. HEART: Without murmurs gallops or rubs, regular rate and rhythm. ABDOMEN: Soft, nontender, bowel sounds positive, no peritonitis. Linares catheter noted at bedside. Dark urine in the bag. EXTREMITIES: No cyanosis or edema, full range of motion of all the joints without pain or difficulty, no signs for acute trauma. NEUROLOGIC: Oriented x 3, no acute motor or sensory deficits, no focal weakness. SKIN: No rash, no jaundice, no diaphoresis. Pale. DIFFERENTIAL DIAGNOSIS: Dehydration, renal or liver failure, rhabdomyolysis, UTI, pneumonia, electrolyte imbalance, anemia, [place], among others. EMERGENCY DEPARTMENT COURSE/PROCEDURES: Prior/Outside records reviewed: [facility] documentation, EMS notes, recent discharge summary. ECG per my interpretation: Indication was weakness. The ECG shows a sinus bradycardia with a rate of 57. There is no ST elevation, no PVCs. The QTc is 451. Continuous Cardiac Monitoring per my interpretation: An order was placed for continuous cardiac monitoring. The monitor shows a rate of 61 with normal sinus rhythm. Critical Care Note: I have personally spent 41 minutes of critical care time in the direct management of this patient. This includes bedside care, interpretation of diagnostic studies, and testing, discussion with consultants, patient, and family members, and other required patient management activities. This 41 minutes is in excess of all separately billable procedures. MEDICAL DECISION MAKING: There is no leukocytosis. A mild anemia was seen. There was a normal platelet count. No concerning coagulopathy. No renal failure. Calcium and magnesium were both low. Lactic acid level was not elevated making severe sepsis less likely. There was no concerning liver enzyme elevation. Procalcitonin level was not elevated making serious bacterial infection less likely. Patient appeared to be in a euthyroid state. ECG shows a sinus bradycardia, no ST elevation. Cardiac enzyme testing x1 was not consistent with acute cardiac injury. Urinalysis shows possible infection. COVID test returned negative. Chest film per my review did not show mediastinal widening, pneumonia or pneumothorax. Abdominal and pelvis CT did not show any urinary obstruction, the Linares was within the bladder. There was no acute surgical pathology by CT priscilla ging. The patient presented weak, appeared dehydrated and was mildly hypotensive. He was also found to be a bit hypoxic and required O2 supplementation. Patient received IV saline, 1 L. He was given IV magnesium, IV cefepime, IV calcium. He received a DuoNeb. Patient is currently resting comfortably. He will require a hospital stay for further electrolyte replacement as well as hydration. He requires treatment for his UTI. I do not think he is stable to go back to the care home this evening. I spoke with the patient and the guards. I spoke with case management, the on- call hospitalist was consulted. DISPOSITION: Patient presentation and findings warrant a hospital stay. Past Med/Surg History Medical History CHF (congestive heart failure) COPD (chronic obstructive pulmonary disease) Diabetes High blood pressure Surgical History H/O inguinal hernia repair History of appendectomy Hx laparoscopic cholecystectomy Family History Father Coronary heart disease Diabetes Social History Smoking Status: Former smoker Tobacco Type: Cigarettes Do You Dip or Chew Tobacco: No; Hx Alcohol Use: No Hx Substance Use: No Preferred Language: Slovenian Communication Ability: confusion Chief Medical Technologist Required: No Beliefs That Will Affect Care: None Current Living Situation: Other Current Living Situation Comment: [facility] Feels Safe at Home: Yes Assistive Devices: Wheelchair Allergies Allergies Allergy/AdvReac Type Severity Reaction Status Date / Time Sulfa (Sulfonamide Allergy Unknown ON [facility] Verified 06/07/23 20:26 Antibiotics) MELINDA TWP MED LIST Home Meds Home Medications Medication Instructions Recorded Confirmed albuterol sulfate 90 mcg/actuation 2 puff inhalation QID PRN 02/15/23 06/07/23 aerosol inhaler Shortness Of Breath aspirin 81 mg tablet,delayed 81 mg PO DAILY 02/15/23 06/07/23 release ciclesonide 160 mcg/actuation 2 puff inhalation BID 02/15/23 06/07/23 aerosol inhaler (Alvesco) clopidogrel 75 mg tablet (Plavix) 75 mg PO DAILY 02/15/23 06/07/23 doxazosin 8 mg tablet 8 mg PO HS 02/15/23 06/07/23 fluoxetine 20 mg tablet 20 mg PO DAILY 02/15/23 06/07/23 insulin human U-100 NPH-regulr 12 unit subcut BID 02/15/23 06/07/23 70-30 mix 100 unit/mL subcutaneous susp (Novolin 70/30 U-100 Insulin) insulin regular human 100 unit/mL 1 sliding scale dose subcut 02/15/23 06/07/23 injection solution (Novolin R USEASDIRECTD Regular U-100 Insulin) isosorbide mononitrate 30 mg 30 mg PO DAILY 02/15/23 06/07/23 tablet,extended release 24 hr latanoprost 0.005 % eye drops 1 drp OPB PM 02/15/23 06/07/23 lisinopril 40 mg tablet 40 mg PO DAILY 02/15/23 06/07/23 menthol 0.44 %-zinc oxide 20.6 % 1 applic topical QID PRN flare ups 02/15/23 06/07/23 topical ointment (Calmoseptine) metoprolol tartrate 50 mg tablet 50 mg PO BID 02/15/23 06/07/23 rosuvastatin 10 mg tablet 10 mg PO DAILY 02/15/23 06/07/23 docusate sodium 100 mg capsule 100 mg PO BID 04/08/23 06/07/23 ferrous gluconate 324 mg (38 mg 324 mg PO DAILY 04/08/23 06/07/23 iron) tablet bumetanide 1 mg tablet 1 mg PO [id number] 06/07/23 06/07/23 empagliflozin 10 mg tablet 10 mg PO DAILY 06/07/23 06/07/23 (Jardiance) nitrofurantoin 100 mg PO BID 06/07/23 06/07/23 monohydrate/macrocrystals 100 mg capsule (Macrobid) Results & Data (ED) Vital Signs Vital Signs - 24 hr 06/07/23 17:13 06/07/23 17:23 06/07/23 18:10 Temperature 36.4 C L Temperature Source Oral Pulse Rate 58 L 61 Pulse Rate [Right Finger] Pulse Rhythm Regular Pulse Rhythm [Right Finger] Pulse Strength Normal Pulse Strength [Right Finger] Respiratory Rate 19 Respiratory Effort / Characteristics Non-Labored Spontaneous Respiratory Depth Normal Respiratory Pattern Regular Blood Pressure 98/48 L Blood Pressure [Left Arm] Blood Pressure Mean 64 Blood Pressure Mean [Left Arm] Blood Pressure Position [Left Arm] Pulse Oximetry 94 86 L Oxygen Delivery Method Room Air Room Air Oxygen Flow Rate Sepsis Recent Fever Within 48 Hours No Sepsis New/Unexplained Change in Mental Status N/A Sepsis Action Taken by Nursing No Action Required Oxygen Flow Rate - Titration 2 Pulse Oximetry Post Tiitration 92 06/07/23 19:29 06/07/23 19:30 06/07/23 21:52 Temperature Temperature Source Pulse Rate 56 L 67 Pulse Rate [Right Finger] 55 L Pulse Rhythm Regular Pulse Rhythm [Right Finger] Regular Pulse Strength Pulse Strength [Right Finger] Normal Respiratory Rate 19 19 Respiratory Effort / Characteristics Non-Labored Respiratory Depth Normal Respiratory Pattern Blood Pressure Blood Pressure [Left Arm] Blood Pressure Mean Blood Pressure Mean [Left Arm] Blood Pressure Position [Left Arm] Pulse Oximetry 100 100 Oxygen Delivery Method Nasal Cannula Nasal Cannula Oxygen Flow Rate 2 2 Sepsis Recent Fever Within 48 Hours Sepsis New/Unexplained Change in Mental Status Sepsis Action Taken by Nursing Oxygen Flow Rate - Titration Pulse Oximetry Post Tiitration 06/07/23 22:04 Temperature Temperature Source Pulse Rate Pulse Rate [Right Finger] 63 Pulse Rhythm Pulse Rhythm [Right Finger] Regular Pulse Strength Pulse Strength [Right Finger] Normal Respiratory Rate 18 Respiratory Effort / Characteristics Non-Labored Spontaneous Respiratory Depth Normal Respiratory Pattern Regular Blood Pressure Blood Pressure [Left Arm] 113/63 Blood Pressure Mean Blood Pressure Mean [Left Arm] 79 Blood Pressure Position [Left Arm] Lying Pulse Oximetry 95 Oxygen Delivery Method Nasal Cannula Oxygen Flow Rate 2 Sepsis Recent Fever Within 48 Hours Sepsis New/Unexplained Change in Mental Status Sepsis Action Taken by Nursing Oxygen Flow Rate - Titration Pulse Oximetry Post Tiitration Home Medications Current Medication List: was personally reviewed by me Laboratory Data Attestation: I reviewed the patient's lab results. 06/07/23 Unknown 06/07/23 Unknown Lab Results 06/07/23 06/07/23 06/07/23 Range/Units 17:55 18:58 20:14 WBC (4.8-10.8) K/ul RBC (4.70-6.10) M/uL Hgb (14.0-18.0) g/dl Hct (42.0-52.0) % MCV (80.0-100.0) fL MCH (25.0-34.0) pg MCHC (32.0-36.0) g/dL RDW Std Deviation (36.4-46.3) fL RDW Coeff of Sandrita (11.5-14.5) % Plt Count (130-400) K/uL MPV (9.4-12.4) fL Immature Gran % (Auto) % Neut % (Auto) % Lymph % (Auto) % [place] % (Auto) % Eos % (Auto) % Baso % (Auto) % Neut # (Auto) (1.40-6.50) K/uL Lymph # (Auto) (1.2-3.4) K/uL [place] # (Auto) (0.11-0.59) K/uL Eos # (Auto) (0-0.50) K/uL Baso # (Auto) (0-0.2) K/uL Immature Gran # (Auto) (0.01-0.20) K/uL PT (9.0-12.0) Seconds INR (0.9-1.1) APTT (21.0-31.0) Seconds PTT Ratio ABG pH (7.35-7.45) ABG pCO2 (35-46) mmHg ABG pO2 (80-95) mmHg ABG HCO3 (19-24) mmol/L ABG O2 Saturation (90-95) % ABG Base Excess (-9-1.8) mEq/L Epifanio Test (Pos) Oxygen Given Sodium (136-145) mmol/L Potassium (3.5-5.1) mmol/L Chloride (98-107) mmol/L Carbon Dioxide (21-32) mmol/L Anion Gap (3-11) BUN (6-23) mg/dl Creatinine (0.6-1.4) mg/dl Est Cr Clr Drug Dosing ml/min Est GFR ( Amer) ml/min Est GFR (Non-Af Amer) ml/min BUN/Creatinine Ratio (10-20) Glucose (70-99(Fasting)) mg/dl POC Glucose 77 (70-99) mg/dl Lactate 1.1 (0.4-2.0) mmol/L Calcium (8.6-10.3) mg/dl Magnesium (1.7-2.4) mg/dl Total Bilirubin (0.2-1.0) mg/dl AST (13-39) U/L ALT (7-52) U/L Alkaline Phosphatase (34-104) U/L Total Creatine Kinase (30-223) U/L Troponin I High Sens (0-20) pg/ml Total Protein (6.0-8.3) gm/dl Albumin (3.4-5.0) gm/dl Globulin (2.5-4.0) gm/dl Albumin/Globulin Ratio (0.9-2) Procalcitonin (0-0.5) ng/ml TSH (0.300-4.500) uIu/ml Urine Color Urine Appearance (Clear) Urine pH (4.5-7.5) Ur Specific [place] (1.000-1.030) Urine Protein (Negative) Urine Glucose (UA) (Negative) Urine Ketones (Negative) Urine Blood (Negative) Urine Nitrite (Negative) Urine Bilirubin (Negative) Urine Urobilinogen (Negative) Ur Leukocyte Esterase (Negative) Urine WBC (Auto) (0-5) /hpf Urine RBC (Auto) (0-4) /hpf U Hyaline Cast (Auto) (0-5) /lpf U Epithel Cells (Auto) (0-5) /lpf Urine Bacteria (Auto) (Negative) Urine Yeast (None Prsent) SARS-CoV-2, RNA, NAAT NEGATIVE (NEGATIVE) 06/07/23 06/07/23 06/07/23 Range/Units 21:23 Unknown Unknown WBC 5.43 (4.8-10.8) K/ul RBC 3.87 L (4.70-6.10) M/uL Hgb 11.1 L (14.0-18.0) g/dl Hct 34.1 L (42.0-52.0) % MCV 88.1 (80.0-100.0) fL MCH 28.7 (25.0-34.0) pg MCHC 32.6 (32.0-36.0) g/dL RDW Std Deviation 45.1 (36.4-46.3) fL RDW Coeff of Sandrita 14.0 (11.5-14.5) % Plt Count 239 (130-400) K/uL MPV 11.0 (9.4-12.4) fL Immature Gran % (Auto) 0.2 % Neut % (Auto) 66.7 % Lymph % (Auto) 18.0 % [place] % (Auto) 12.0 % Eos % (Auto) 2.4 % Baso % (Auto) 0.7 % Neut # (Auto) 3.62 (1.40-6.50) K/uL Lymph # (Auto) 0.98 L (1.2-3.4) K/uL [place] # (Auto) 0.65 H (0.11-0.59) K/uL Eos # (Auto) 0.13 (0-0.50) K/uL Baso # (Auto) 0.04 (0-0.2) K/uL Immature Gran # (Auto) 0.01 (0.01-0.20) K/uL PT 12.2 H (9.0-12.0) Seconds INR 1.1 (0.9-1.1) APTT 28.4 (21.0-31.0) Seconds PTT Ratio 1.0 ABG pH 7.36 (7.35-7.45) ABG pCO2 36 (35-46) mmHg ABG pO2 103 H (80-95) mmHg ABG HCO3 20 (19-24) mmol/L ABG O2 Saturation 99.2 H (90-95) % ABG Base Excess -4.5 (-9-1.8) mEq/L Epifanio Test Pos (Pos) Oxygen Given FLOW RATE 2 Sodium (136-145) mmol/L Potassium (3.5-5.1) mmol/L Chloride (98-107) mmol/L Carbon Dioxide (21-32) mmol/L Anion Gap (3-11) BUN (6-23) mg/dl Creatinine (0.6-1.4) mg/dl Est Cr Clr Drug Dosing ml/min Est GFR ( Amer) ml/min Est GFR (Non-Af Amer) ml/min BUN/Creatinine Ratio (10-20) Glucose (70-99(Fasting)) mg/dl POC Glucose (70-99) mg/dl Lactate (0.4-2.0) mmol/L Calcium (8.6-10.3) mg/dl Magnesium (1.7-2.4) mg/dl Total Bilirubin (0.2-1.0) mg/dl AST (13-39) U/L ALT (7-52) U/L Alkaline Phosphatase (34-104) U/L Total Creatine Kinase (30-223) U/L Troponin I High Sens (0-20) pg/ml Total Protein (6.0-8.3) gm/dl Albumin (3.4-5.0) gm/dl Globulin (2.5-4.0) gm/dl Albumin/Globulin Ratio (0.9-2) Procalcitonin (0-0.5) ng/ml TSH (0.300-4.500) uIu/ml Urine Color Urine Appearance (Clear) Urine pH (4.5-7.5) Ur Specific [place] (1.000-1.030) Urine Protein (Negative) Urine Glucose (UA) (Negative) Urine Ketones (Negative) Urine Blood (Negative) Urine Nitrite (Negative) Urine Bilirubin (Negative) Urine Urobilinogen (Negative) Ur Leukocyte Esterase (Negative) Urine WBC (Auto) (0-5) /hpf Urine RBC (Auto) (0-4) /hpf U Hyaline Cast (Auto) (0-5) /lpf U Epithel Cells (Auto) (0-5) /lpf Urine Bacteria (Auto) (Negative) Urine Yeast (None Prsent) SARS-CoV-2, RNA, NAAT (NEGATIVE) 06/07/23 06/07/23 06/07/23 Range/Units Unknown Unknown Unknown WBC (4.8-10.8) K/ul RBC (4.70-6.10) M/uL Hgb (14.0-18.0) g/dl Hct (42.0-52.0) % MCV (80.0-100.0) fL MCH (25.0-34.0) pg MCHC (32.0-36.0) g/dL RDW Std Deviation (36.4-46.3) fL RDW Coeff of Sandrita (11.5-14.5) % Plt Count (130-400) K/uL MPV (9.4-12.4) fL Immature Gran % (Auto) % Neut % (Auto) % Lymph % (Auto) % [place] % (Auto) % Eos % (Auto) % Baso % (Auto) % Neut # (Auto) (1.40-6.50) K/uL Lymph # (Auto) (1.2-3.4) K/uL [place] # (Auto) (0.11-0.59) K/uL Eos # (Auto) (0-0.50) K/uL Baso # (Auto) (0-0.2) K/uL Immature Gran # (Auto) (0.01-0.20) K/uL PT (9.0-12.0) Seconds INR (0.9-1.1) APTT (21.0-31.0) Seconds PTT Ratio ABG pH (7.35-7.45) ABG pCO2 (35-46) mmHg ABG pO2 (80-95) mmHg ABG HCO3 (19-24) mmol/L ABG O2 Saturation (90-95) % ABG Base Excess (-9-1.8) mEq/L Epifanio Test (Pos) Oxygen Given Sodium 140 (136-145) mmol/L Potassium 3.5 (3.5-5.1) mmol/L Chloride 111 H (98-107) mmol/L Carbon Dioxide 21 (21-32) mmol/L Anion Gap 8 (3-11) BUN 15 (6-23) mg/dl Creatinine 0.82 (0.6-1.4) mg/dl Est Cr Clr Drug Dosing 75.7 ml/min Est GFR ( Amer) 94.8 ml/min Est GFR (Non-Af Amer) 81.8 ml/min BUN/Creatinine Ratio 18.3 (10-20) Glucose 69 L (70-99(Fasting)) mg/dl POC Glucose (70-99) mg/dl Lactate (0.4-2.0) mmol/L Calcium 7.1 L (8.6-10.3) mg/dl Magnesium 1.6 L (1.7-2.4) mg/dl Total Bilirubin 0.5 (0.2-1.0) mg/dl AST 13 (13-39) U/L ALT 7 (7-52) U/L Alkaline Phosphatase 76 (34-104) U/L Total Creatine Kinase 32 (30-223) U/L Troponin I High Sens 4.2 (0-20) pg/ml Total Protein 5.6 L (6.0-8.3) gm/dl Albumin 2.8 L (3.4-5.0) gm/dl Globulin 2.8 (2.5-4.0) gm/dl Albumin/Globulin Ratio 1.0 (0.9-2) Procalcitonin < 0.05 (0-0.5) ng/ml TSH 1.120 (0.300-4.500) uIu/ml Urine Color Urine Appearance (Clear) Urine pH (4.5-7.5) Ur Specific [place] (1.000-1.030) Urine Protein (Negative) Urine Glucose (UA) (Negative) Urine Ketones (Negative) Urine Blood (Negative) Urine Nitrite (Negative) Urine Bilirubin (Negative) Urine Urobilinogen (Negative) Ur Leukocyte Esterase (Negative) Urine WBC (Auto) (0-5) /hpf Urine RBC (Auto) (0-4) /hpf U Hyaline Cast (Auto) (0-5) /lpf U Epithel Cells (Auto) (0-5) /lpf Urine Bacteria (Auto) (Negative) Urine Yeast (None Prsent) SARS-CoV-2, RNA, NAAT (NEGATIVE) 06/07/23 Range/Units Unknown WBC (4.8-10.8) K/ul RBC (4.70-6.10) M/uL Hgb (14.0-18.0) g/dl Hct (42.0-52.0) % MCV (80.0-100.0) fL MCH (25.0-34.0) pg MCHC (32.0-36.0) g/dL RDW Std Deviation (36.4-46.3) fL RDW Coeff of Sandrita (11.5-14.5) % Plt Count (130-400) K/uL MPV (9.4-12.4) fL Immature Gran % (Auto) % Neut % (Auto) % Lymph % (Auto) % [place] % (Auto) % Eos % (Auto) % Baso % (Auto) % Neut # (Auto) (1.40-6.50) K/uL Lymph # (Auto) (1.2-3.4) K/uL [place] # (Auto) (0.11-0.59) K/uL Eos # (Auto) (0-0.50) K/uL Baso # (Auto) (0-0.2) K/uL Immature Gran # (Auto) (0.01-0.20) K/uL PT (9.0-12.0) Seconds INR (0.9-1.1) APTT (21.0-31.0) Seconds PTT Ratio ABG pH (7.35-7.45) ABG pCO2 (35-46) mmHg ABG pO2 (80-95) mmHg ABG HCO3 (19-24) mmol/L ABG O2 Saturation (90-95) % ABG Base Excess (-9-1.8) mEq/L Epifanio Test (Pos) Oxygen Given Sodium (136-145) mmol/L Potassium (3.5-5.1) mmol/L Chloride (98-107) mmol/L Carbon Dioxide (21-32) mmol/L Anion Gap (3-11) BUN (6-23) mg/dl Creatinine (0.6-1.4) mg/dl Est Cr Clr Drug Dosing ml/min Est GFR ( Amer) ml/min Est GFR (Non-Af Amer) ml/min BUN/Creatinine Ratio (10-20) Glucose (70-99(Fasting)) mg/dl POC Glucose (70-99) mg/dl Lactate (0.4-2.0) mmol/L Calcium (8.6-10.3) mg/dl Magnesium (1.7-2.4) mg/dl Total Bilirubin (0.2-1.0) mg/dl AST (13-39) U/L ALT (7-52) U/L Alkaline Phosphatase (34-104) U/L Total Creatine Kinase (30-223) U/L Troponin I High Sens (0-20) pg/ml Total Protein (6.0-8.3) gm/dl Albumin (3.4-5.0) gm/dl Globulin (2.5-4.0) gm/dl Albumin/Globulin Ratio (0.9-2) Procalcitonin (0-0.5) ng/ml TSH (0.300-4.500) uIu/ml Urine Color Dark Yellow Urine Appearance Turbid A (Clear) Urine pH 5.0 (4.5-7.5) Ur Specific [place] 1.018 (1.000-1.030) Urine Protein 1+ H (Negative) Urine Glucose (UA) 2+ H (Negative) Urine Ketones 1+ H (Negative) Urine Blood 1+ H (Negative) Urine Nitrite Negative (Negative) Urine Bilirubin 1+ H (Negative) Urine Urobilinogen Negative (Negative) Ur Leukocyte Esterase 3+ H (Negative) Urine WBC (Auto) >30 H (0-5) /hpf Urine RBC (Auto) 0-4 (0-4) /hpf U Hyaline Cast (Auto) 5-10 H (0-5) /lpf U Epithel Cells (Auto) 20-30 H (0-5) /lpf Urine Bacteria (Auto) Negative (Negative) Urine Yeast Budding w/ Hyphae A (None Prsent) SARS-CoV-2, RNA, NAAT (NEGATIVE) Administered Medications Lactated Ringer's (Lr) 1,000 mls @ 80 mls/hr IV .[id number] ONE Stop: 06/08/23 09:00 Last Admin: 06/07/23 20:52 Dose: 80 mls/hr Documented By: JAYNE Discontinued Medications Albuterol (Albut/Ipratrop 3mg/0.5mg Neb 3 Ml Vial) 3 ml NEB NOW STA; Protocol Stop: 06/07/23 19:08 Last Admin: 06/07/23 19:26 Dose: 3 ml Documented By: JAYNE Sodium Chloride (Nss 1000ml) 1,000 mls @ 999 mls/hr IV .[id number] MENDOZA Stop: 06/07/23 19:00 Last Infusion: 06/07/23 21:02 Dose: 0 mls/hr Documented By: Admin: 06/07/23 18:08 Dose: 999 mls/hr Documented By: JAYNE Cefepime HCl (Maxipime) 2,000 mg in 20 mls @ 5 mls/min IV NOW STA; Protocol Stop: 06/07/23 18:01 Last Admin: 06/07/23 19:04 Dose: 5 mls/min Documented By: JAYNE Calcium Gluconate () 1,000 mg in 60 mls @ 240 mls/hr IV NOW STA Stop: 06/07/23 18:44 Last Infusion: 06/07/23 19:10 Dose: 0 mls/hr Documented By: Admin: 06/07/23 18:49 Dose: 240 mls/hr Documented By: ERIKA Magnesium Sulfate/Dextrose (Magnesium Sulfate / D5w) 1 gm in 100 mls @ 100 mls/hr IV NOW STA Stop: 06/07/23 19:29 Last Infusion: 06/07/23 21:02 Dose: 0 mls/hr Documented By: Admin: 06/07/23 19:07 Dose: 100 mls/hr Documented By: JAYNE Fluconazole (Diflucan) 200 mg in 100 mls @ 100 mls/hr IV NOW STA Stop: 06/07/23 21:26 Last Infusion: 06/07/23 22:04 Dose: 0 mls/hr Documented By: Admin: 06/07/23 20:50 Dose: 100 mls/hr Documented By: JAYNE Imaging Data Radiologist's Impression: Chest X-Ray 06/07/23 17:50 XR chest 1V portable HISTORY: 82 years-old Male weakness acute weakness COMPARISON: 04/08/2023 TECHNIQUE: AP view of the chest FINDINGS: Cardiac silhouette is enlarged. Atherosclerosis of the aorta. No pneumothorax, pleural effusion, airspace consolidation or pulmonary edema. Degenerative c hanges of the shoulders and spine. Hiatal hernia. IMPRESSION: 1. Cardiomegaly without acute process. 2. Hiatal hernia. ACT 112: Negative or not required by law. The above report was generated using voice recognition software. It may contain grammatical, syntax or spelling errors. Electronically signed by: Hayden Garrett M.D. 06/07/2023 6:37 PM Abdomen/Pelvis CT 06/07/23 19:36 Exam(s): CT ABDOMEN + PELVIS Without Contrast EXAM: CT Abdomen and Pelvis Without Intravenous Contrast CLINICAL HISTORY: Reason for exam: poss obstruc. TECHNIQUE: Axial computed tomography images of the abdomen and pelvis without intravenous contrast. CTDI is 25.59 mGy and DLP is 1197.62 mGy-cm. Automated exposure control was utilized for the study. A dose lowering technique was utilized adhering to the principles of ALARA. COMPARISON: 04/08/2023. FINDINGS: Lung bases: Mild bilateral lower lobe atelectasis. Normal cardiac size with coronary artery calcifications. Mediastinum: Large hiatal hernia. ABDOMEN: Liver: Unremarkable. Gallbladder and bile ducts: Status post cholecystectomy. No ductal dilation. Pancreas: Unremarkable. No ductal dilation. Spleen: Unremarkable. No splenomegaly. Adrenals: Unremarkable. No mass. Kidneys and ureters: Unremarkable. No obstructing stones. No hydronephrosis. Stomach and bowel: Mild scattered diverticulosis with no signs of diverticulitis. No obstruction. PELVIS: Appendix: Distinct appendix not visualized with no appendicitis. Bladder: The urinary bladder is decompressed Via Linares catheter. No stones. Reproductive: Unremarkable as visualized. ABDOMEN and PELVIS: Intraperitoneal space: Unremarkable. No free air. No significant fluid collection. Bones/joints: Diffuse osteopenia/with areas of irregularities throughout the spine, likely related to osteoporosis, difficult to exclude lytic lesions. No acute fracture. No dislocation. Soft tissues: Unremarkable. Vasculature: Atherosclerotic disease of aorta with tortuosity. No aneurysm. Lymph nodes: Unremarkable. No enlarged lymph nodes. IMPRESSION: 1. Moderate to large hiatal hernia. Mild diverticulosis with no signs of diverticulitis. No signs of bowel obstruction. 2. Status post cholecystectomy, otherwise unremarkable abdominal viscera. 3. Diffuse osteoporosis with areas of irregular hypodensities, likely secondary to osteoporosis, difficult to exclude lytic lesions. If there is history of neoplasm, recommend dedicated full-body bone scan in nonacute setting. Electronically signed by: Isa Martin MD 06/07/23 21:13 PM Discharge Plan Visit Data Chief Complaint: Lethargic Stated Complaint: RENAL FAILURE, DEHYDRATION, LETHARGIC ED Provider: Eduardo Chan Discharge Problem: Hypotension, Weakness, Acute dehydration, Acute UTI, Hypocalcemia, Hypo magnesemia Patient Disposition: Admitted As Inpatient Condition: Fair Forms Stand Alone Forms: [facility] Prescriptions Prescriptions: No Action latanoprost 0.005 % Drops 1 drp OPB PM isosorbide mononitrate 30 mg Tablet Extended Release 24 Hr 30 mg PO DAILY Rx Instructions: ON HOLD 06/07/23-06/09/23 D/T LOW RENAL OUTPUT. HOLD IF SBP < 90. Novolin 70/30 U-100 Insulin 100 unit/mL (70-30) Suspension 12 unit SUBCUT BID Rx Instructions: TAKES AT 0630 & 1530 clopidogrel [Plavix] 75 mg Tablet 75 mg PO DAILY aspirin 81 mg Tablet,Delayed Release (Dr/Ec) 81 mg PO DAILY doxazosin 8 mg Tablet 8 mg PO HS Rx Instructions: HOLD IF SBP < 90 fluoxetine 20 mg Tablet 20 mg PO DAILY Novolin R Regular U100 Insulin 100 unit/mL Solution 1 sliding scale dose SUBCUT USEASDIRECTD Rx Instructions: BSG 151-200=2 UNITS, 201-250=4 UNITS, 251-300=6 UNITS, 301-350=8 UNITS, 351- 400=10 UNITS, 401-450=12 UNITS, BSG >451=CALL MD. metoprolol tartrate 50 mg Tablet 50 mg PO BID Rx Instructions: HOLD IF HR < 60 albuterol sulfate 90 mcg/actuation Hfa Aerosol Inhaler 2 puff INHALATION QID PRN (Reason: Shortness Of Breath) lisinopril 40 mg Tablet 40 mg PO DAILY rosuvastatin 10 mg Tablet 10 mg PO DAILY Alvesco 160 mcg/actuation Hfa Aerosol Inhaler 2 puff INHALATION BID menthol-zinc oxide [Calmoseptine] 0.44-20.6 % Ointment 1 applic TOPICAL QID PRN (Reason: flare ups) nitrofurantoin monohyd/m-cryst [Macrobid] 100 mg Capsule 100 mg PO BID Rx Instructions: must administer with a meal/food Jardiance 10 mg Tablet 10 mg PO DAILY Rx Instructions: ON HOLD 06/07/23-06/09/23 D/T LOW RENAL OUTPUT bumetanide 1 mg tablet 1 mg PO 4XWK Rx Instructions: TAKES MON, WED, FRI & SUN. docusate sodium 100 mg Capsule 100 mg PO BID ferrous gluconate 324 mg (38 mg iron) Tablet 324 mg PO DAILY Referrals Referrals: Melinda MCCORMICK [Primary Care Provider] -
[2023-06-07] MEDS ORDERED: SODIUM CHLORIDE 0.9% 1000ML 1,000 ML IV SCH (18:00)
[2023-06-07 18:15] LABS: Basophils # (auto) 0.04 K/uL (0-0.2); Basophils % (auto) 0.7 %; Eosinophils # (auto) 0.13 K/uL (0-0.50); Eosinophils % (auto) 2.4 %; Hematocrit (blood only) 34.1 % (42.0-52.0); Hemoglobin 11.1 g/dl (14.0-18.0); Immature Granulocytes # (auto) 0.01 K/uL (0.01-0.20); Immature Granulocytes % (auto) 0.2 %; Lymphocytes # (auto) 0.98 K/uL (1.2-3.4); Mean Corpuscular Hemoglobin 28.7 pg (25.0-34.0); Mean Corpuscular Hgb Conc 32.6 g/dL (32.0-36.0); Mean Corpuscular Volume 88.1 fL (80.0-100.0); Monocytes # (auto) 0.65 K/uL (0.11-0.59); Neutrophils # (auto) 3.62 K/uL (1.40-6.50); Neutrophils % (auto) 66.7 %; Platelet Count 239 K/uL (130-400); RDW Standard Deviation 45.1 fL (36.4-46.3); Red Blood Count 3.87 M/uL (4.70-6.10); White Blood Count 5.43 K/ul (4.8-10.8)
[2023-06-07 18:25] LABS: Albumin Level 2.8 gm/dl (3.4-5.0); Bilirubin,Total 0.5 mg/dl (0.2-1.0); Calcium 7.1 mg/dl (8.6-10.3); Magnesium 1.6 mg/dl (1.7-2.4); Potassium 3.5 mmol/L (3.5-5.1)
[2023-06-07] MEDS ORDERED: CALCIUM GLUCONATE 1,000 MG/60 ML BAG IV STA (18:30)
[2023-06-07] MEDS ORDERED: MAGNESIUM SULFATE / D5W 1 GM/100 ML BAG IV STA (18:30)
[2023-06-07 18:31] LABS: BUN Creatinine Ratio 18.3 (10-20); Creatinine Clr Calc Pharmacy 75.7 ml/min; Est GFR (African American) 94.8 ml/min; Est GFR (Non-African American) 81.8 ml/min; Globulin 2.8 gm/dl (2.5-4.0); Total Protein 5.6 gm/dl (6.0-8.3)
[2023-06-07 18:34] LABS: Troponin I High Sensitivity 4.2 pg/ml (0-20)
--- NOTE | 2023-06-07 18:38 | XRay Report ---
XR chest 1V portable HISTORY: 82 years-old Male weakness acute weakness COMPARISON: 04/08/2023 TECHNIQUE: AP view of the chest FINDINGS: Cardiac silhouette is enlarged. Atherosclerosis of the aorta. No pneumothorax, pleural effusion, airs pace consolidation or pulmonary edema. Degenerative changes of the shoulders and spine. Hiatal hernia . IMPRESSION: 1. Cardiomegaly without acute process. 2. Hiatal hernia. ACT 112: Negative or not required by law. The above report was generated using voice recognition software. It may contain grammatical, syntax o r spelling errors. Electronically signed by: Hayden Garrett M.D. 06/07/2023 6:37 PM
[2023-06-07 18:45] LABS: INR 1.1 (0.9-1.1); Partial Thromboplastin Time 28.4 Seconds (21.0-31.0); Prothrombin Time 12.2 Seconds (9.0-12.0)
[2023-06-07] MEDS ORDERED: ALBUT/IPRATROP 3MG/0.5MG NEB 3 ML VIAL NEB STA (19:07)
[2023-06-07 20:06] LABS: Appearance Urine Turbid (Clear); Bacteria Urine Automated Negative (Negative); Blood Urine 1+ (Negative); Color Urine Dark Yellow; Epithelial Cell Urine Auto 20-30 /lpf (0-5); Glucose Urine UA 2+ (Negative); Ketones Urine 1+ (Negative); Leukocyte Esterase Urine 3+ (Negative); Nitrite Urine Negative (Negative); Protein Urine 1+ (Negative); Specific Gravity Urine 1.018 (1.000-1.030); Urobilinogen Urine Negative (Negative); WBC Urine Automated >30 /hpf (0-5)
[2023-06-07 20:07] LABS: Bilirubin Urine 1+ (Negative)
[2023-06-07 20:23] LABS: RBC Urine Automated 0-4 /hpf (0-4)
[2023-06-07] MEDS ORDERED: FLUCONAZOLE 200 MG/100 ML BAG IV STA (20:27)
[2023-06-07] MEDS ORDERED: LACTATED RINGER'S 1,000 ML IV ONE (20:31)
--- NOTE | 2023-06-07 20:56 | History & Physical Report ---
Date of Service June 07, 2023 Assessment & Plan (1) Acute UTI: (2) BPH w/o urinary obs/LUTS: (3) Insulin dependent diabetes mellitus: (4) Hypertension: (5) CAD (coronary artery disease): Plan: Please refer to attending addendum for assessment and plan. History of Present Illness Chief Complaint: Lethargy Primary Care Provider: ANNY Romero This is an 82-year-old male from [facility] with PMHx of CAD on aspirin and Plavix, diastolic CHF, COPD, BPH with LUTS, DM type II, HTN, indwelling Linares catheter who presents with dehydration and inability to check bloodwork at [facility], increased confusion and concerns for urinary tract infection. Patient is slightly confused, he knows the year but cannot answer date, season, day of the week or the town that he resides in. Patient reports he was in the [facility] today and that they were unable to get blood work after multiple attempts and therefore sent him to the ER here. He thinks that he has been eating and drinking as well as he can, patient is not sure of his medications and does not know if he is on a diuretic anymore. He denies any lower abdominal cramping, pain, dysuria or hematuria. Urine in Linares bag has looked like "ice tea" recently. Believes that Linares catheter was changed about 1 week ago, and then was done here again in the ER today. He has had indwelling Linares catheter for approximately 6 months per his recollection. Allergies Allergy/AdvReac Type Severity Reaction Status Date / Time Sulfa (Sulfonamide Allergy Unknown ON [facility] Verified 06/07/23 20:26 Antibiotics) [facility] MED LIST Home Medications Medication Instructions Recorded Confirmed Type albuterol sulfate 90 mcg/actuation 2 puff inhalation QID PRN 02/15/23 06/07/23 History aerosol inhaler Shortness Of Breath aspirin 81 mg tablet,delayed 81 mg PO DAILY 02/15/23 06/07/23 History release ciclesonide 160 mcg/actuation 2 puff inhalation BID 02/15/23 06/07/23 History aerosol inhaler (Alvesco) clopidogrel 75 mg tablet (Plavix) 75 mg PO DAILY 02/15/23 06/07/23 History doxazosin 8 mg tablet 8 mg PO HS 02/15/23 06/07/23 History fluoxetine 20 mg tablet 20 mg PO DAILY 02/15/23 06/07/23 History insulin human U-100 NPH-regulr 12 unit subcut BID 02/15/23 06/07/23 History 70-30 mix 100 unit/mL subcutaneous susp (Novolin 70/30 U-100 Insulin) insulin regular human 100 unit/mL 1 sliding scale dose subcut 02/15/23 06/07/23 History injection solution (Novolin R USEASDIRECTD Regular U-100 Insulin) isosorbide mononitrate 30 mg 30 mg PO DAILY 02/15/23 06/07/23 History tablet,extended release 24 hr latanoprost 0.005 % eye drops 1 drp OPB PM 02/15/23 06/07/23 History lisinopril 40 mg tablet 40 mg PO DAILY 02/15/23 06/07/23 History menthol 0.44 %-zinc oxide 20.6 % 1 applic topical QID PRN flare ups 02/15/23 06/07/23 History topical ointment (Calmoseptine) metoprolol tartrate 50 mg tablet 50 mg PO BID 02/15/23 06/07/23 History rosuvastatin 10 mg tablet 10 mg PO DAILY 02/15/23 06/07/23 History docusate sodium 100 mg capsule 100 mg PO BID 04/08/23 06/07/23 History ferrous gluconate 324 mg (38 mg 324 mg PO DAILY 04/08/23 06/07/23 History iron) tablet bumetanide 1 mg tablet 1 mg PO 4XWK 06/07/23 06/07/23 History empagliflozin 10 mg tablet 10 mg PO DAILY 06/07/23 06/07/23 History (Jardiance) nitrofurantoin 100 mg PO BID 06/07/23 06/07/23 History monohydrate/macrocrystals 100 mg capsule (Macrobid) Past Med/Surg History Medical History CHF (congestive heart failure) COPD (chronic obstructive pulmonary disease) Diabetes High blood pressure Surgical History H/O inguinal hernia repair History of appendectomy Hx laparoscopic cholecystectomy Family History Father Coronary heart disease Diabetes Social History Smoking Status: Former smoker Tobacco Type: Cigarettes Second Hand Exposure: No; Do You Dip or Chew Tobacco: No; Tobacco Cessation Education Requested by Patient: No Hx Alcohol Use: No Hx Substance Use: No Preferred Language: Sammarinese Communication Ability: Effective Communication Ability Comment: Per patient he can read and write. Channeler Runner Required: No Beliefs That Will Affect Care: None Current Living Situation: Other Current Living Situation Comment: [facility] Other Information That Helps Us Care for You: No Feels Safe at Home: Yes Safety Concerns: Feels Safe At This Time Assistive Devices: None Review of Systems Review of Systems: Constitutional: No fever, sweats or chills Eyes: No diplopia, no worsening or blurred vision ENT: normal hearing, no trouble swallowing Respiratory: No cough, sputum, dyspnea at rest or on exertion, does not require supplemental O2 at baseline Cardiovascular: No chest pain, tightness or palpitations Abdomen: No pain, nausea, vomiting, diarrhea or constipation Musculoskeletal: No joint pain, calf pain, swelling : As per HPI, indwelling Linares catheter Neurologic: + Generalized weakness, mainly wheelchair-bound at baseline, no numbness/tingling, or balance problems Psychiatric: No anxiety or depression Skin: No rash or itch Physical Exam Physical Exam: General: awake, alert, no apparent distress Head: Normocephalic, scabbed over lesion on right parietal region status post surgery ENT: PERRL, EOMI, no pharyngeal exudate, nares bilaterally have been surgically resected, mucous membranes dry Chest: Clear to auscultation, on 2 LPM NC, no adventitious breath sounds Cardiac: Regular rate and rhythm, no murmur, no JVD, normal peripheral pulses, good capillary refill Abdominal: NABS x 4 quadrants, soft, nondistended, nontender to palpation, no rebound or guarding Extremities: Normal inspection, no peripheral edema or erythema, calfs nontender to palpation Psych: Normal mood and affect Neuro: AAO to birthdate, year, not to specific date or location., strength intact bilaterally and rated 5/5 in upper extremities, 4/5 in legs bilaterally, gait not assessed, no motor deficits, speech is clear, no peripheral sensory deficits Results & Data Results & Data Vital Signs (Past 12 Hours) Vital Signs Temp Pulse Pulse Resp BP Pulse Ox O2 Del Method 06/07/23 19:30 56 L 19 100 Nasal Cannula 06/07/23 19:29 55 L 19 100 Nasal Cannula 06/07/23 18:10 86 L Room Air 06/07/23 17:23 61 06/07/23 17:13 36.4 C L 58 L 19 98/48 L 94 Room Air O2 Flow Rate 06/07/23 19:30 2 06/07/23 19:29 2 06/07/23 18:10 06/07/23 17:23 06/07/23 17:13 Laboratory Results 06/07/23 Unknown Urine Culture - Pending Urine,Straight Cath 06/07/23 18:58 Aerobic Blood Culture - Pending Blood Anaerobic Blood Culture - Pending 06/07/23 Unknown Aerobic Blood Culture - Pending Blood Anaerobic Blood Culture - Pending 06/07/23 06/07/23 06/07/23 Unknown Unknown Unknown WBC RBC Hgb Hct MCV MCH MCHC RDW Std Deviation RDW Coeff of Sandrita Plt Count MPV Immature Gran % (Auto) Neut % (Auto) Lymph % (Auto) [place] % (Auto) Eos % (Auto) Baso % (Auto) Neut # (Auto) Lymph # (Auto) [place] # (Auto) Eos # (Auto) Baso # (Auto) Immature Gran # (Auto) PT INR APTT PTT Ratio Sodium Potassium Chloride Carbon Dioxide Anion Gap BUN Creatinine Est Cr Clr Drug Dosing Est GFR ( Amer) Est GFR (Non-Af Amer) BUN/Creatinine Ratio Glucose POC Glucose Lactate Calcium Magnesium Total Bilirubin AST ALT Alkaline Phosphatase Total Creatine Kinase Troponin I High Sens Total Protein Albumin Globulin Albumin/Globulin Ratio Procalcitonin < 0.05 TSH 1.120 Urine Color Dark Yellow Urine Appearance Turbid A Urine pH 5.0 Ur Specific [place] 1.018 Urine Protein 1+ H Urine Glucose (UA) 2+ H Urine Ketones 1+ H Urine Blood 1+ H Urine Nitrite Negative Urine Bilirubin 1+ H Urine Urobilinogen Negative Ur Leukocyte Esterase 3+ H Urine WBC (Auto) >30 H Urine RBC (Auto) 0-4 U Hyaline Cast (Auto) 5-10 H U Epithel Cells (Auto) 20-30 H Urine Bacteria (Auto) Negative Urine Yeast Budding w/ Hyphae A SARS-CoV-2, RNA, NAAT 06/07/23 06/07/23 06/07/23 Unknown Unknown Unknown WBC 5.43 RBC 3.87 L Hgb 11.1 L Hct 34.1 L MCV 88.1 MCH 28.7 MCHC 32.6 RDW Std Deviation 45.1 RDW Coeff of Sandrita 14.0 Plt Count 239 MPV 11.0 Immature Gran % (Auto) 0.2 Neut % (Auto) 66.7 Lymph % (Auto) 18.0 [place] % (Auto) 12.0 Eos % (Auto) 2.4 Baso % (Auto) 0.7 Neut # (Auto) 3.62 Lymph # (Auto) 0.98 L [place] # (Auto) 0.65 H Eos # (Auto) 0.13 Baso # (Auto) 0.04 Immature Gran # (Auto) 0.01 PT 12.2 H INR 1.1 APTT 28.4 PTT Ratio 1.0 Sodium 140 Potassium 3.5 Chloride 111 H Carbon Dioxide 21 Anion Gap 8 BUN 15 Creatinine 0.82 Est Cr Clr Drug Dosing 75.7 Est GFR ( Amer) 94.8 Est GFR (Non-Af Amer) 81.8 BUN/Creatinine Ratio 18.3 Glucose 69 L POC Glucose Lactate Calcium 7.1 L Magnesium 1.6 L Total Bilirubin 0.5 AST 13 ALT 7 Alkaline Phosphatase 76 Total Creatine Kinase 32 Troponin I High Sens 4.2 Total Protein 5.6 L Albumin 2.8 L Globulin 2.8 Albumin/Globulin Ratio 1.0 Procalcitonin TSH Urine Color Urine Appearance Urine pH Ur Specific [place] Urine Protein Urine Glucose (UA) Urine Ketones Urine Blood Urine Nitrite Urine Bilirubin Urine Urobilinogen Ur Leukocyte Esterase Urine WBC (Auto) Urine RBC (Auto) U Hyaline Cast (Auto) U Epithel Cells (Auto) Urine Bacteria (Auto) Urine Yeast SARS-CoV-2, RNA, NAAT 06/07/23 06/07/23 06/07/23 20:14 18:58 17:55 WBC RBC Hgb Hct MCV MCH MCHC RDW Std Deviation RDW Coeff of Sandrita Plt Count MPV Immature Gran % (Auto) Neut % (Auto) Lymph % (Auto) [place] % (Auto) Eos % (Auto) Baso % (Auto) Neut # (Auto) Lymph # (Auto) [place] # (Auto) Eos # (Auto) Baso # (Auto) Immature Gran # (Auto) PT INR APTT PTT Ratio Sodium Potassium Chloride Carbon Dioxide Anion Gap BUN Creatinine Est Cr Clr Drug Dosing Est GFR ( Amer) Est GFR (Non-Af Amer) BUN/Creatinine Ratio Glucose POC Glucose 77 Lactate 1.1 Calcium Magnesium Total Bilirubin AST ALT Alkaline Phosphatase Total Creatine Kinase Troponin I High Sens Total Protein Albumin Globulin Albumin/Globulin Ratio Procalcitonin TSH Urine Color Urine Appearance Urine pH Ur Specific [place] Urine Protein Urine Glucose (UA) Urine Ketones Urine Blood Urine Nitrite Urine Bilirubin Urine Urobilinogen Ur Leukocyte Esterase Urine WBC (Auto) Urine RBC (Auto) U Hyaline Cast (Auto) U Epithel Cells (Auto) Urine Bacteria (Auto) Urine Yeast SARS-CoV-2, RNA, NAAT NEGATIVE Diagnostic Findings Chest X-Ray 06/07/23 17:50 XR chest 1V portable HISTORY: 82 years-old Male weakness acute weakness COMPARISON: 04/08/2023 TECHNIQUE: AP view of the chest FINDINGS: Cardiac silhouette is enlarged. Atherosclerosis of the aorta. No pneumothorax, pleural effusion, airspace consolidation or pulmonary edema. Degenerative change s of the shoulders and spine. Hiatal hernia. IMPRESSION: 1. Cardiomegaly without acute process. 2. Hiatal hernia. ACT 112: Negative or not required by law. The above report was generated using voice recognition software. It may contain grammatical, syntax or spelling errors. Electronically signed by: Hayden Garrett M.D. 06/07/2023 6:37 PM Supervising Physician Co-Signing Physician Notes IM ATTENDING : Patient seen and examined. History obtained from patient and records. Preceding documentation by Ms. Rosalba Vines PA-C reviewed. FINAL ASSESSMENT AND PLAN as follows : Transient encephalopathy Improved mentation post intervention at the ER Multifactorial: Hypotension secondary to hypovolemia secondary to decreased p.o. intake complicated UTI/funguria, history chronic indwelling Linares catheter Hypoglycemia secondary to illness, DM2 insulin requiring, well-controlled as of hemoglobin A1c of 5.8 last March 2023 hx paroxysmal atrial flutter, patient currently NSR Chronic diastolic heart failure (EF 65 to 70%), patient clinically dry hx CAD status post stent hx COPD, baseline lung symptoms hyperlipidemia, on statin Rx BCC, nose status post surgery/failed flap reconstruction (December 2022) and subsequent takedown (01/2023) chronic anemia, hemoglobin at baseline history of MRSA past tobacco abuse Medical telemetry IVF Hold other BP meds for now except for low-dose beta-mynor Urine CS, cefepime, fluconazole Appropriate to hold basal insulin for now given hypoglycemia, ISS BG goal 1 10-1 40, update hemoglobin A1c (Home insulin regimen may need to be decreased or stopped on discharge pending updated A1c results.) DVT prophylaxis. Lovenox subcu Full code Text document was generated using [employer] voice recognition software. It may contain grammatical or spelling errors. Kindly contact undersigned for clarification of any documentation item in question.
--- NOTE | 2023-06-07 21:13 | CT Scan Report ---
Exam(s): CT ABDOMEN + PELVIS Without Contrast EXAM: CT Abdomen and Pelvis Without Intravenous Contrast CLINICAL HISTORY: Reason for exam: poss obstruc. TECHNIQUE: Axial computed tomography images of the abdomen and pelvis without intravenous contrast. CTDI is 25.59 mGy and DLP is 1197.62 mGy-cm. Automated exposure control was utilized for the study. A dose lowering technique was utilized adhering to the principles of ALARA. COMPARISON: 04/08/2023. FINDINGS: Lung bases: Mild bilateral lower lobe atelectasis. Normal cardiac size with coronary artery calcifications. Mediastinum: Large hiatal hernia. ABDOMEN: Liver: Unremarkable. Gallbladder and bile ducts: Status post cholecystectomy. No ductal dilation. Pancreas: Unremarkable. No ductal dilation. Spleen: Unremarkable. No splenomegaly. Adrenals: Unremarkable. No mass. Kidneys and ureters: Unremarkable. No obstructing stones. No hydronephrosis. Stomach and bowel: Mild scattered diverticulosis with no signs of diverticulitis. No obstruction. PELVIS: Appendix: Distinct appendix not visualized with no appendicitis. Bladder: The urinary bladder is decompressed Via Linares catheter. No stones. Reproductive: Unremarkable as visualized. ABDOMEN and PELVIS: Intraperitoneal space: Unremarkable. No free air. No significant fluid collection. Bones/joints: Diffuse osteopenia/with areas of irregularities throughout the spine, likely related to osteoporosis, difficult to exclude lytic lesions. No acute fracture. No dislocation. Soft tissues: Unremarkable. Vasculature: Atherosclerotic disease of aorta with tortuosity. No aneurysm. Lymph nodes: Unremarkable. No enlarged lymph nodes. IMPRESSION: 1. Moderate to large hiatal hernia. Mild diverticulosis with no signs of diverticulitis. No signs of bowel obstruction. 2. Status post cholecystectomy, otherwise unremarkable abdominal viscera. 3. Diffuse osteoporosis with areas of irregular hypodensities, likely secondary to osteoporosis, difficult to exclude lytic lesions. If there is history of neoplasm, recommend dedicated full-body bone scan in nonacute setting. Electronically signed by: Isa Martin MD 06/07/23 21:13 PM
[2023-06-07 21:41] LABS: Base Excess ABG -4.5 mEq/L (-9-1.8); HCO3 ABG 20 mmol/L (19-24); Oxygen Saturation ABG 99.2 % (90-95); PCO2 ABG 36 mmHg (35-46); PO2 ABG 103 mmHg (80-95); pH ABG 7.36 (7.35-7.45)
[2023-06-07 21:42] LABS: Allen Test Pos (Pos)
[2023-06-07] MEDS ORDERED: CARBOHYDRATES FOR HYPOGLYCEMIA PO PRN (22:40)
[2023-06-07] MEDS ORDERED: GLUCAGON FOR INJ 1 MG VIAL SQ PRN (22:40)
[2023-06-07] MEDS ORDERED: GLUCOSE 40% GEL 15 GM TUBE PO PRN (22:40)
[2023-06-07] MEDS ORDERED: DEXTROSE 50% 50 ML SYRINGE IV PRN (22:40)
[2023-06-07] MEDS ORDERED: GLUCOSE 10 TAB/TUBE PO PRN (22:40)
[2023-06-07] MEDS: INSULIN ASPART PER UNIT CHARGE SC SCH (22:54)
[2023-06-07 23:22] LABS: Estimated Average Glucose 103 mg/dl; Hemoglobin A1C 5.2 % (4.5-5.6)
[2023-06-07] MEDS: METOPROLOL TARTRATE 50 MG TAB PO SCH (23:57)
[2023-06-08] MEDS: CALCIUM CARBONATE 500 MG CHEWABLE TAB PO PRN ×2 (02:51→21:52)
[2023-06-08 03:35] LABS: Basophils # (auto) 0.04 K/uL (0-0.2); Basophils % (auto) 0.7 %; Eosinophils # (auto) 0.14 K/uL (0-0.50); Eosinophils % (auto) 2.4 %; Hematocrit (blood only) 33.1 % (42.0-52.0); Hemoglobin 10.6 g/dl (14.0-18.0); Immature Granulocytes # (auto) 0.01 K/uL (0.01-0.20); Immature Granulocytes % (auto) 0.2 %; Lymphocytes # (auto) 0.93 K/uL (1.2-3.4); Lymphocytes % (auto) 15.7 %; Mean Corpuscular Hemoglobin 28.6 pg (25.0-34.0); Mean Corpuscular Volume 89.5 fL (80.0-100.0); Mean Platelet Volume 11.1 fL (9.4-12.4); Monocytes # (auto) 0.74 K/uL (0.11-0.59); Monocytes % (auto) 12.5 %; Neutrophils # (auto) 4.06 K/uL (1.40-6.50); Neutrophils % (auto) 68.5 %; Platelet Count 222 K/uL (130-400); RDW Coefficient of Variation 14.1 % (11.5-14.5); RDW Standard Deviation 45.7 fL (36.4-46.3); White Blood Count 5.92 K/ul (4.8-10.8)
[2023-06-08 03:52] LABS: BUN Creatinine Ratio 17.8 (10-20); Calcium 7.7 mg/dl (8.6-10.3); Est GFR (Non-African American) 63.9 ml/min; Magnesium 2.1 mg/dl (1.7-2.4); Potassium 3.8 mmol/L (3.5-5.1)
[2023-06-08] MEDS: CEFEPIME 2,000 MG in SYRINGE 0 ML IV SCH ×3 (03:53→21:51)
[2023-06-08] MEDS: ASPIRIN 81 MG ECTAB PO SCH (08:11)
[2023-06-08] MEDS: DOCUSATE SODIUM 100 MG CAP PO SCH ×2 (08:12→21:52)
[2023-06-08] MEDS: CLOPIDOGREL BISULFATE 75 MG TAB PO SCH (08:12)
[2023-06-08] MEDS: FERROUS GLUCONATE 324 MG TAB PO SCH (08:13)
[2023-06-08] MEDS: FLUoxetine HCL 20 MG CAP PO SCH (08:13)
[2023-06-08] MEDS: ROSUVASTATIN CALCIUM 10 MG TAB PO SCH (08:14)
[2023-06-08] MEDS: ENOXAPARIN INJ 40 MG/0.4 ML SYR SQ SCH (08:15)
[2023-06-08] MEDS: FLUTICASONE FUROATE 200MCG 14 PUFFS/INHALER INH SCH (08:15)
[2023-06-08] MEDS ORDERED: lisinopril 40 MG TAB PO SCH (09:00)
[2023-06-08] MEDS: INSULIN ASPART PER UNIT CHARGE SC SCH ×4 (09:49→22:06)
[2023-06-08] MEDS: METOPROLOL TARTRATE 50 MG TAB PO SCH ×2 (10:07→21:52)
[2023-06-08] MEDS ORDERED: CEFEPIME 2,000 MG/20 ML VIAL ONE (13:24)
--- NOTE | 2023-06-08 14:51 | Hospitalist Progress Note ---
Date of Service June 08, 2023 Assessment & Plan (1) Acute UTI: (2) BPH w/o urinary obs/LUTS: (3) Insulin dependent diabetes mellitus: (4) Hypertension: (5) CAD (coronary artery disease): Plan: Please refer to attending addendum for assessment and plan. Plan 82-year-old male from [facility] with PMH of CAD on aspirin/Plavix, diastolic CHF, COPD, BPH with LUTS, DMT2, HTN, indwelling Linares catheter presented from [facility] secondary to dehydration and inability to check blood work. Patient reported at presentation that he is eating and drinking as well as he can. He is being managed for the following: Transient metabolic encephalopathy Dehydration Catheter associated UTI: Patient has indwelling Linares catheter Patient presents with confusion [improved post intervention at ED presentation] was found to be clinically dehydrated, and have UTI. Admitting CXR with no acute finding. Admitting CT abdominal pelvis: Moderate to large hiatal hernia. Diffuse osteoporosis with areas of irregular hypodensities, likely secondary to osteoporosis, difficult to exclude lytic lesions. If there is history of neoplasm, recommend dedicated full-body bone scan in nonacute setting. UA suggestive of UTI, urine culture and blood culture pending. Yeast in urine likely colonization. Will DC antifungal 06/08 and monitor off of antifungal. Patient is started on cefepime 06/08 and fluconazole 06/08. DC fluconazole 06/08. Status post IV fluid, encourage p.o. intake. If poor p.o. intake, consider IV fluid. Hypotension: At presentation, likely secondary to decreased p.o. intake prior to arrival. Will monitor. Slowly improving. Status post IV fluid. Encourage p.o. intake. Hemoglobin is around baseline. Holding BP meds for now. Hypoglycemia: At presentation, likely secondary to decreased p.o. intake prior to arrival. Will monitor. Sinus bradycardia: Noted on EKG. Please reduce home metoprolol dose. Abnormal CT abdominal pelvis [see above]/Vitamin D deficiency: Vitamin D level of 11.3 at presentation. Will initiate vitamin D 50,000 units weekly for 6 weeks then 1000 units daily. Given history of neoplasm, patient will need bone scan upon discharge. Patient has been made aware. Other chronic medical conditions: DM2 insulin requiring, well-controlled as of hemoglobin A1c of 5.8 last March 2023. A1c 5.2 this admission. Consider decreasing or stopping home insulin on discharge. hx paroxysmal atrial flutter, patient currently NSR Chronic diastolic heart failure (EF 65 to 70%), patient clinically dry at presentation hx CAD status post stent hx COPD, baseline lung symptoms hyperlipidemia, on statin Rx BCC, nose status post surgery/failed flap reconstruction (December 2022) and subsequent takedown (01/2023) chronic anemia, hemoglobin at baseline history of MRSA past tobacco abuse DVT prophylaxis. Lovenox subcu Full code Text document was generated using [employer] voice recognition software. It may contain grammatical or spelling errors. Kindly contact undersigned for clarification of any documentation item in question. Admission and Anticipated Discharge Date Admission Date: June 07, 2023 Subjective Patient seen and examined at bedside as a follow-up of likely metabolic encephalopathy, complicated UTI background of chronic indwelling Linares catheter. Patient was lying in bed, alert and oriented x3, 2 L oxygen via nasal cannula, NAD, reports no pain/chest pain/headache. Denies any palpitation. Physical Exam Physical Exam: GENERAL: Alert and oriented x3. NAD, on 3 L nasal cannula oxygen. Appears ill and frail. HEENT: No pallor, no icterus. Pupils equal, round and reactive to light. Oral mucosa moist. scabbed over lesion on right parietal region status post surgery, bilaterally resected nares NECK: No JVD, no neck masses. HEART: S1 and S2 heard. Regular rate and rhythm. No murmur, no gallop. RESPIRATORY SYSTEM: Normal AP diameter. No accessory muscle use. No wheezing, no crackles. ABDOMEN: Soft, bowel sounds present, nontender, no distention. CENTRAL NERVOUS SYSTEM: No facial droop. Speech is clear. Obeys simple commands. Moves extremities. EXTREMITIES: No edema, no erythema seen. Results & Data Results & Data Vital Signs (Past 12 Hours) Vital Signs Temp Pulse Resp BP Pulse Ox O2 Del Method O2 Flow Rate 06/08/23 10:00 58 L 18 103/51 L 94 Nasal Cannula 06/08/23 07:10 36.6 C 53 L 19 134/58 L 96 Room Air 06/08/23 06:18 15 149/70 H 97 Nasal Cannula 2 06/08/23 02:37 57 L 15 98/49 L 17 L Nasal Cannula 2
[2023-06-08] MEDS ORDERED: ERGOCALCIFEROL 50,000 UNITS 1250 MCG CAP PO SCH (15:00)
--- NOTE | 2023-06-08 15:57 | Electrocardiogram Report ---
Test Reason : Blood Pressure : / mmHG Vent. Rate : 057 BPM Atrial Rate : 057 BPM P-R Int : 160 ms QRS Dur : 070 ms QT Int : 464 ms P-R-T Axes : 004 076 051 degrees QTc Int : 451 ms Sinus bradycardia Low voltage QRS Borderline ECG When compared with ECG of 08-APR-2023 14:19, Premature atrial complexes are no longer Present Questionable change in QRS axis Confirmed by Martinez Olivas ([id number]) on 06/08/2023 3:56:53 PM Referred By: Heather [facility] Confirmed By:Martinez Olivas
[2023-06-08] MEDS ORDERED: FLUCONAZOLE 100 MG TAB PO SCH (21:00)
[2023-06-08] MEDS: LATANOPROST 0.005% OP SOLN 2.5 ML BTL OPB SCH (22:05)
[2023-06-09] MEDS ORDERED: POTASSIUM CHLORIDE CRTAB 20 MEQ TABCR PO STA (01:21)
[2023-06-09] MEDS: METOPROLOL TARTRATE 25 MG TAB PO SCH ×3 (02:28→20:04)
[2023-06-09 02:36] LABS: Basophils # (auto) 0.04 K/uL (0-0.2); Basophils % (auto) 0.7 %; Eosinophils # (auto) 0.18 K/uL (0-0.50); Eosinophils % (auto) 2.9 %; Hemoglobin 10.8 g/dl (14.0-18.0); Immature Granulocytes # (auto) 0.01 K/uL (0.01-0.20); Immature Granulocytes % (auto) 0.2 %; Lymphocytes # (auto) 1.01 K/uL (1.2-3.4); Lymphocytes % (auto) 16.4 %; Mean Corpuscular Hemoglobin 28.8 pg (25.0-34.0); Mean Corpuscular Hgb Conc 32.7 g/dL (32.0-36.0); Monocytes # (auto) 0.79 K/uL (0.11-0.59); Monocytes % (auto) 12.8 %; Neutrophils # (auto) 4.12 K/uL (1.40-6.50); Platelet Count 218 K/uL (130-400); RDW Coefficient of Variation 13.9 % (11.5-14.5); Red Blood Count 3.75 M/uL (4.70-6.10); White Blood Count 6.15 K/ul (4.8-10.8)
[2023-06-09 02:48] LABS: BUN Creatinine Ratio 20.4 (10-20); Creatinine Clr Calc Pharmacy 60.3 ml/min; Est GFR (African American) 77.5 ml/min; Est GFR (Non-African American) 66.9 ml/min; Phosphorus 2.2 mg/dl (2.5-4.9)
[2023-06-09] MEDS: CEFEPIME 2,000 MG in SYRINGE 0 ML IV SCH (07:34)
[2023-06-09] MEDS ORDERED: Nursing to Pharmacy Communication SCH (07:45)
[2023-06-09] MEDS: ROSUVASTATIN CALCIUM 10 MG TAB PO SCH (08:26)
[2023-06-09] MEDS: CLOPIDOGREL BISULFATE 75 MG TAB PO SCH (08:26)
[2023-06-09] MEDS: ASPIRIN 81 MG ECTAB PO SCH (08:26)
[2023-06-09] MEDS: FLUoxetine HCL 20 MG CAP PO SCH (08:26)
[2023-06-09] MEDS: FLUTICASONE FUROATE 200MCG 14 PUFFS/INHALER INH SCH (08:27)
[2023-06-09] MEDS: ENOXAPARIN INJ 40 MG/0.4 ML SYR SQ SCH (08:27)
[2023-06-09] MEDS: FERROUS GLUCONATE 324 MG TAB PO SCH (08:27)
[2023-06-09] MEDS: DOCUSATE SODIUM 100 MG CAP PO SCH ×2 (08:28→21:13)
[2023-06-09] MEDS: INSULIN ASPART PER UNIT CHARGE SC SCH ×4 (08:56→21:02)
[2023-06-09] MEDS: POT PHOSPHATE MONOBASIC W/ SOD TAB PO SCH ×3 (12:55→20:04)
[2023-06-09] MEDS: cefTRIAXone SODIUM 2,000 MG in DEXTROSE 5% 50 ML IV SCH (13:50)
--- NOTE | 2023-06-09 15:50 | Hospitalist Progress Note ---
Date of Service June 09, 2023 Assessment & Plan (1) Acute UTI: (2) BPH w/o urinary obs/LUTS: (3) Insulin dependent diabetes mellitus: (4) Hypertension: (5) CAD (coronary artery disease): Plan: Please refer to attending addendum for assessment and plan. Plan 82-year-old male from [facility] with PMH of CAD on aspirin/Plavix, diastolic CHF, COPD, BPH with LUTS, DMT2, HTN, indwelling Linares catheter presented from [facility] secondary to dehydration and inability to check blood work. Patient reported at presentation that he is eating and drinking as well as he can. He is being managed for the following: Transient metabolic encephalopathy Dehydration Catheter associated UTI: Patient has indwelling Linares catheter Patient presents with confusion [improved post intervention at ED presentation] was found to be clinically dehydrated, and have UTI. Admitting CXR with no acute finding. Admitting CT abdominal pelvis: Moderate to large hiatal hernia. Diffuse osteoporosis with areas of irregular hypodensities, likely secondary to osteoporosis, difficult to exclude lytic lesions. If there is history of neoplasm, recommend dedicated full-body bone scan in nonacute setting. UA suggestive of UTI, urine culture and blood culture pending. Yeast in urine likely colonization. Will DC antifungal 06/08 and monitor off of antifungal. Patient is started on cefepime 06/08 and fluconazole 06/08. DC fluconazole 06/08. Continue with Rocephin 06/09. Status post IV fluid, encourage p.o. intake. If poor p.o. intake, consider IV fluid. Hypotension: At presentation, likely secondary to decreased p.o. intake prior to arrival. Resolved. Continue HOIST WORKER antihypertensives. Hypoglycemia: At presentation, likely secondary to decreased p.o. intake prior to arrival. Will monitor. Sinus bradycardia: Noted on EKG. Please reduce home metoprolol dose. Abnormal CT abdominal pelvis [see above]/Vitamin D deficiency: Vitamin D level of 11.3 at presentation. Will initiate vitamin D 50,000 units weekly for 6 weeks then 1000 units daily. Given history of neoplasm, patient will need bone scan upon discharge. Patient has been made aware. Other chronic medical conditions: DM2 insulin requiring, well-controlled as of hemoglobin A1c of 5.8 last March 2023. A1c 5.2 this admission. Consider decreasing home insulin on discharge. Consider discontinuing Jardiance postdischarge due to frequent UTIs/indwelling Linares catheter. hx paroxysmal atrial flutter, patient currently NSR Chronic diastolic heart failure (EF 65 to 70%), patient clinically dry at presentation hx CAD status post stent hx COPD, baseline lung symptoms hyperlipidemia, on statin Rx BCC, nose status post surgery/failed flap reconstruction (December 2022) and subsequent takedown (01/2023) chronic anemia, hemoglobin at baseline history of MRSA past tobacco abuse DVT prophylaxis. Lovenox subcu Full code Follow-up blood culture for 48 hours, likely discharge tomorrow. PT/OT. Text document was generated using [employer] voice recognition software. It may contain grammatical or spelling errors. Kindly contact undersigned for clarification of any documentation item in question. Admission and Anticipated Discharge Date Admission Date: June 07, 2023 Subjective Patient seen and examined at bedside as a follow-up of likely metabolic encephalopathy, complicated UTI background of chronic indwelling Linares catheter. Patient was lying in bed, sleeping, room air, NAD, reports no pain/chest pain/headache. Denies any palpitation. Physical Exam Physical Exam: GENERAL: Sleepy. NAD, on room air. Weak appearing HEENT: No pallor, no icterus. Pupils equal, round and reactive to light. Oral mucosa moist. scabbed over lesion on right parietal region status post surgery, bilaterally resected nares NECK: No JVD, no neck masses. HEART: S1 and S2 heard. Regular rate and rhythm. No murmur, no gallop. RESPIRATORY SYSTEM: Normal AP diameter. No accessory muscle use. No wheezing, no crackles. ABDOMEN: Soft, bowel sounds present, nontender, no distention. CENTRAL NERVOUS SYSTEM: No facial droop. Speech is clear. Obeys simple commands. Moves extremities. EXTREMITIES: No edema, no erythema seen. Results & Data Results & Data Vital Signs (Past 12 Hours) Vital Signs Temp Pulse Pulse Resp BP Pulse Ox O2 Del Method 06/09/23 13:57 53 L 06/09/23 12:49 36.6 C 58 L 16 119/74 93 Room Air 06/09/23 07:53 36.6 C 63 16 123/55 L 93 Room Air 06/09/23 06:00 57 L 06/09/23 07:35 Room Air 06/09/23 06:07 36.5 C 56 L 16 122/73 95 Room Air
[2023-06-09] MEDS: LATANOPROST 0.005% OP SOLN 2.5 ML BTL OPB SCH (20:09)
[2023-06-10 08:23] LABS: Phosphorus 3.5 mg/dl (2.5-4.9)
[2023-06-10 08:24] LABS: BUN Creatinine Ratio 23.8 (10-20); Calcium 8.2 mg/dl (8.6-10.3); Creatinine Clr Calc Pharmacy 98.5 ml/min; Est GFR (African American) 105.6 ml/min; Est GFR (Non-African American) 91.1 ml/min; Magnesium 1.9 mg/dl (1.7-2.4); Potassium 3.7 mmol/L (3.5-5.1)
[2023-06-10] MEDS: INSULIN ASPART PER UNIT CHARGE SC SCH ×4 (08:32→21:32)
[2023-06-10] MEDS: ROSUVASTATIN CALCIUM 10 MG TAB PO SCH (09:13)
[2023-06-10] MEDS: ASPIRIN 81 MG ECTAB PO SCH (09:13)
[2023-06-10] MEDS: ENOXAPARIN INJ 40 MG/0.4 ML SYR SQ SCH (09:14)
[2023-06-10] MEDS: CLOPIDOGREL BISULFATE 75 MG TAB PO SCH (09:14)
[2023-06-10] MEDS: FLUoxetine HCL 20 MG CAP PO SCH (09:14)
[2023-06-10] MEDS: FERROUS GLUCONATE 324 MG TAB PO SCH (09:14)
[2023-06-10] MEDS: METOPROLOL TARTRATE 25 MG TAB PO SCH ×2 (09:15→20:58)
[2023-06-10] MEDS: DOCUSATE SODIUM 100 MG CAP PO SCH ×2 (09:15→21:01)
[2023-06-10] MEDS: POT PHOSPHATE MONOBASIC W/ SOD TAB PO SCH (09:15)
[2023-06-10] MEDS: FLUTICASONE FUROATE 200MCG 14 PUFFS/INHALER INH SCH (09:16)
[2023-06-10] MEDS: ISOSORBIDE MONO EXTENDED REL 30 MG TABCR PO SCH (12:37)
[2023-06-10] MEDS: cefTRIAXone SODIUM 2,000 MG in DEXTROSE 5% 50 ML IV SCH (12:37)
[2023-06-10] MEDS: lisinopril 40 MG TAB PO SCH (12:37)
--- NOTE | 2023-06-10 16:36 | Hospitalist Progress Note ---
Date of Service June 10, 2023 Assessment & Plan (1) Acute UTI: (2) BPH w/o urinary obs/LUTS: (3) Insulin dependent diabetes mellitus: (4) Hypertension: (5) CAD (coronary artery disease): Plan: Please refer to attending addendum for assessment and plan. Plan 82-year-old male from [facility] with PMH of CAD on aspirin/Plavix, diastolic CHF, COPD, BPH with LUTS, DMT2, HTN, indwelling Linares catheter [facility] and inability to check blood work. Patient reported at presentation that he is eating and drinking as well as he can. He is being managed for the following: Transient metabolic encephalopathy Dehydration Catheter associated UTI: Patient has indwelling Linares catheter Patient presents with confusion [improved post intervention at ED presentation] was found to be clinically dehydrated, and have UTI. Admitting CXR with no acute finding. Admitting CT abdominal pelvis: Moderate to large hiatal hernia. Diffuse osteoporosis with areas of irregular hypodensities, likely secondary to osteoporosis, difficult to exclude lytic lesions. If there is history of neoplasm, recommend dedicated full-body bone scan in nonacute setting. UA suggestive of UTI, urine culture and blood culture pending. Yeast in urine likely colonization. Will DC antifungal 06/08 and monitor off of antifungal. Patient is started on cefepime 06/08 and fluconazole 06/08. DC fluconazole 06/08. Continue with Rocephin 06/09. Status post IV fluid, encourage p.o. intake. If poor p.o. intake, consider IV fluid. IVF today. Hypotension: At presentation, likely secondary to decreased p.o. intake prior to arrival. Resolved. Continue SPECIAL EDUCATION CLASSROOM AIDE antihypertensives. Hypoglycemia: At presentation, likely secondary to decreased p.o. intake prior to arrival. Will monitor. Sinus bradycardia: Noted on EKG. c/w reduced home metoprolol dose. Abnormal CT abdominal pelvis [see above]/Vitamin D deficiency: Vitamin D level of 11.3 at presentation. Will initiate vitamin D 50,000 units weekly for 6 weeks then 1000 units daily. Given history of neoplasm, patient will need bone scan upon discharge. Patient has been made aware. Other chronic medical conditions: DM2 insulin requiring, well-controlled as of hemoglobin A1c of 5.8 last March 2023. A1c 5.2 this admission. Consider decreasing home insulin on discharge. Consider discontinuing Jardiance postdischarge due to frequent UTIs/indwelling Linares catheter. hx paroxysmal atrial flutter, patient currently NSR Chronic diastolic heart failure (EF 65 to 70%), patient clinically dry at presentation hx CAD status post stent hx COPD, baseline lung symptoms hyperlipidemia, on statin Rx BCC, nose status post surgery/failed flap reconstruction (December 2022) and subsequent takedown (01/2023) chronic anemia, hemoglobin at baseline history of MRSA past tobacco abuse DVT prophylaxis. Lovenox subcu Full code pt/ot. Text document was generated using [employer] voice recognition software. It may contain grammatical or spelling errors. Kindly contact undersigned for clarification of any documentation item in question. Admission and Anticipated Discharge Date Admission Date: June 07, 2023 Subjective Patient seen and examined at bedside as a follow-up of likely metabolic encephalopathy, complicated UTI background of chronic indwelling Linares catheter. Patient was lying in bed, sleeping, room air, NAD, reports no pain/chest pain/headache. Denies any palpitation. Per RN pt w/ poor po intake, will use ivf today, ?? rameron. Physical Exam Physical Exam: GENERAL: Sleepy. NAD, on room air. Weak appearing HEENT: No pallor, no icterus. Pupils equal, round and reactive to light. Oral mucosa moist. scabbed over lesion on right parietal region status post surgery, bilaterally resected nares NECK: No JVD, no neck masses. HEART: S1 and S2 heard. Regular rate and rhythm. No murmur, no gallop. RESPIRATORY SYSTEM: Normal AP diameter. No accessory muscle use. No wheezing, no crackles. ABDOMEN: Soft, bowel sounds present, nontender, no distention. CENTRAL NERVOUS SYSTEM: No facial droop. Speech is clear. Obeys simple commands. Moves extremities. EXTREMITIES: No edema, no erythema seen. Results & Data Results & Data Vital Signs (Past 12 Hours) Vital Signs Temp Pulse Pulse Resp BP Pulse Ox O2 Del Method 06/10/23 16:00 77 06/10/23 14:38 36.5 C 63 16 127/68 100 Room Air 06/10/23 08:00 54 L 06/10/23 07:35 36.4 C L 52 L 16 178/76 H 97 Room Air 06/10/23 04:57 36.5 C 61 20 164/93 H 93 Room Air
[2023-06-10] MEDS: SODIUM CHLORIDE 0.9% 1000ML 1,000 ML IV SCH (17:47)
[2023-06-10] MEDS: LATANOPROST 0.005% OP SOLN 2.5 ML BTL OPB SCH (20:57)
[2023-06-10] MEDS: DOXAZosin MESYLATE 4 MG TAB PO SCH (20:58)
[2023-06-11] MEDS ORDERED: MICONAZOLE NITRATE POWDER 85 GM EXT PRN (00:19)
[2023-06-11] MEDS: CALCIUM CARBONATE 500 MG CHEWABLE TAB PO PRN ×3 (00:44→21:04)
[2023-06-11] MEDS: SODIUM CHLORIDE 0.9% 1000ML 1,000 ML IV SCH (05:39)
[2023-06-11 06:57] LABS: Hematocrit (blood only) 31.3 % (42.0-52.0); Hemoglobin 10.2 g/dl (14.0-18.0); Mean Corpuscular Hemoglobin 28.7 pg (25.0-34.0); Mean Corpuscular Hgb Conc 32.6 g/dL (32.0-36.0); Mean Corpuscular Volume 87.9 fL (80.0-100.0); Mean Platelet Volume 11.5 fL (9.4-12.4); Platelet Count 202 K/uL (130-400); RDW Coefficient of Variation 14.1 % (11.5-14.5); RDW Standard Deviation 45.2 fL (36.4-46.3); Red Blood Count 3.56 M/uL (4.70-6.10); White Blood Count 5.04 K/ul (4.8-10.8)
[2023-06-11 07:51] LABS: BUN Creatinine Ratio 19.1 (10-20); Calcium 7.9 mg/dl (8.6-10.3); Creatinine Clr Calc Pharmacy 91.3 ml/min; Est GFR (African American) 102.4 ml/min; Est GFR (Non-African American) 88.3 ml/min; Magnesium 1.8 mg/dl (1.7-2.4); Phosphorus 3.1 mg/dl (2.5-4.9); Potassium 3.4 mmol/L (3.5-5.1)
[2023-06-11] MEDS: INSULIN ASPART PER UNIT CHARGE SC SCH ×4 (08:26→20:42)
[2023-06-11] MEDS: FERROUS GLUCONATE 324 MG TAB PO SCH (08:32)
[2023-06-11] MEDS: ROSUVASTATIN CALCIUM 10 MG TAB PO SCH (08:32)
[2023-06-11] MEDS: FLUoxetine HCL 20 MG CAP PO SCH (08:32)
[2023-06-11] MEDS: ENOXAPARIN INJ 40 MG/0.4 ML SYR SQ SCH (08:33)
[2023-06-11] MEDS: lisinopril 40 MG TAB PO SCH (08:33)
[2023-06-11] MEDS: ISOSORBIDE MONO EXTENDED REL 30 MG TABCR PO SCH (08:34)
[2023-06-11] MEDS: DOCUSATE SODIUM 100 MG CAP PO SCH ×2 (08:34→21:02)
[2023-06-11] MEDS: FLUTICASONE FUROATE 200MCG 14 PUFFS/INHALER INH SCH (08:34)
[2023-06-11] MEDS: ASPIRIN 81 MG ECTAB PO SCH (08:34)
[2023-06-11] MEDS: METOPROLOL TARTRATE 25 MG TAB PO SCH ×2 (08:35→21:02)
[2023-06-11] MEDS: CLOPIDOGREL BISULFATE 75 MG TAB PO SCH (08:35)
[2023-06-11] MEDS ORDERED: BUMETANIDE 1 MG TAB PO SCH (09:00)
[2023-06-11] MEDS: cefTRIAXone SODIUM 2,000 MG in DEXTROSE 5% 50 ML IV SCH (13:06)
[2023-06-11] MEDS ORDERED: POTASSIUM CHLORIDE / WTR 10 MEQ/100 ML PLCT IV ONE (17:03)
--- NOTE | 2023-06-11 18:39 | Hospitalist Progress Note ---
Date of Service June 11, 2023 Assessment & Plan (1) Acute UTI: (2) BPH w/o urinary obs/LUTS: (3) Insulin dependent diabetes mellitus: (4) Hypertension: (5) CAD (coronary artery disease): Plan: Please refer to attending addendum for assessment and plan. Plan 82-year-old male from [facility] with PMH of CAD on aspirin/Plavix, diastolic CHF, COPD, BPH with LUTS, DMT2, HTN, indwelling Linares catheter presented from [facility] secondary to dehydration and inability to check blood work. Patient reported at presentation that he is eating and drinking as well as he can. He is being managed for the following: Transient metabolic encephalopathy Dehydration Catheter associated UTI: All stable for discharge. Patient has indwelling Linares catheter Patient presents with confusion [improved post intervention at ED presentation] was found to be clinically dehydrated, and have UTI. Admitting CXR with no acute finding. Admitting CT abdominal pelvis: Moderate to large hiatal hernia. Diffuse osteoporosis with areas of irregular hypodensities, likely secondary to osteoporosis, difficult to exclude lytic lesions. If there is history of neoplasm, recommend dedicated full-body bone scan in nonacute setting. UA suggestive of UTI, urine culture and blood culture pending. Yeast in urine likely colonization. Will DC antifungal 06/08 and monitor off of antifungal. Patient is started on cefepime 06/08 and fluconazole 06/08. DC fluconazole 06/08. Continue with Rocephin 06/09. Status post IV fluid, encourage p.o. intake. If poor p.o. intake, consider IV fluid. Hypotension: At presentation, likely secondary to decreased p.o. intake prior to arrival. Resolved. Continue DRAFTING ENGINEER antihypertensives. Hypoglycemia: At presentation, likely secondary to decreased p.o. intake prior to arrival. Will monitor. Sinus bradycardia: Noted on EKG. c/w reduced home metoprolol dose. Abnormal CT abdominal pelvis [see above]/Vitamin D deficiency: Vitamin D level of 11.3 at presentation. Will initiate vitamin D 50,000 units weekly for 6 weeks then 1000 units daily. Given history of neoplasm, patient will need bone scan upon discharge. Patient has been made aware. Other chronic medical conditions: DM2 insulin requiring, well-controlled as of hemoglobin A1c of 5.8 last March 2023. A1c 5.2 this admission. Consider decreasing home insulin on discharge. Consider discontinuing Jardiance postdischarge due to frequent UTIs/indwelling Linares catheter. hx paroxysmal atrial flutter, patient currently NSR Chronic diastolic heart failure (EF 65 to 70%), patient clinically dry at presentation hx CAD status post stent hx COPD, baseline lung symptoms hyperlipidemia, on statin Rx BCC, nose status post surgery/failed flap reconstruction (December 2022) and subsequent takedown (01/2023) chronic anemia, hemoglobin at baseline history of MRSA past tobacco abuse DVT prophylaxis. Lovenox subcu Full code pt/ot. . Admission and Anticipated Discharge Date Admission Date: June 07, 2023 Subjective Seen, states feels well. Eating his sandwich. Review of Systems Review of Systems: All systems reviewed & are unremarkable except as noted in Subjective Physical Exam Physical Exam: General: Alert Psych: Appropriate mood and affect Neuro: No gross deficits HEENT: noted nasal abnormality CV: RRR Resp:no increased effort of breathing. Abdomen: Soft, nontender, nondistended. Results & Data Results & Data Vital Signs (Past 12 Hours) Vital Signs Temp Pulse Pulse Resp BP BP Pulse Ox 06/11/23 16:00 73 06/11/23 16:21 36.6 C 85 17 121/63 95 06/11/23 12:41 36.7 C 84 16 134/70 94 06/11/23 08:00 60 06/11/23 07:12 36.5 C 58 L 16 129/70 96 O2 Del Method 06/11/23 16:00 06/11/23 16:21 Room Air 06/11/23 12:41 Room Air 06/11/23 08:00 06/11/23 07:12 Room Air
[2023-06-11] MEDS: DOXAZosin MESYLATE 4 MG TAB PO SCH (21:01)
[2023-06-11] MEDS: LATANOPROST 0.005% OP SOLN 2.5 ML BTL OPB SCH (22:08)
[2023-06-12] MEDS: INSULIN ASPART PER UNIT CHARGE SC SCH ×2 (08:36→12:51)
[2023-06-12] MEDS: FLUoxetine HCL 20 MG CAP PO SCH (08:54)
[2023-06-12] MEDS: ROSUVASTATIN CALCIUM 10 MG TAB PO SCH (08:54)
[2023-06-12] MEDS: ISOSORBIDE MONO EXTENDED REL 30 MG TABCR PO SCH (08:54)
[2023-06-12] MEDS: FERROUS GLUCONATE 324 MG TAB PO SCH (08:54)
[2023-06-12] MEDS: ASPIRIN 81 MG ECTAB PO SCH (08:54)
[2023-06-12] MEDS: lisinopril 40 MG TAB PO SCH (08:54)
[2023-06-12] MEDS: ENOXAPARIN INJ 40 MG/0.4 ML SYR SQ SCH (08:54)
[2023-06-12] MEDS: METOPROLOL TARTRATE 25 MG TAB PO SCH (08:55)
[2023-06-12] MEDS: FLUTICASONE FUROATE 200MCG 14 PUFFS/INHALER INH SCH (08:55)
[2023-06-12] MEDS: DOCUSATE SODIUM 100 MG CAP PO SCH (09:00)
[2023-06-12] MEDS: CLOPIDOGREL BISULFATE 75 MG TAB PO SCH (09:00)
[2023-06-12 09:06] LABS: Basophils # (auto) 0.02 K/uL (0-0.2); Basophils % (auto) 0.4 %; Eosinophils # (auto) 0.15 K/uL (0-0.50); Eosinophils % (auto) 3.1 %; Hematocrit (blood only) 29.7 % (42.0-52.0); Hemoglobin 9.8 g/dl (14.0-18.0); Immature Granulocytes # (auto) 0.02 K/uL (0.01-0.20); Immature Granulocytes % (auto) 0.4 %; Lymphocytes # (auto) 1.33 K/uL (1.2-3.4); Lymphocytes % (auto) 27.2 %; Mean Corpuscular Hemoglobin 28.7 pg (25.0-34.0); Mean Corpuscular Volume 87.1 fL (80.0-100.0); Mean Platelet Volume 11.1 fL (9.4-12.4); Monocytes # (auto) 0.62 K/uL (0.11-0.59); Monocytes % (auto) 12.7 %; Neutrophils # (auto) 2.75 K/uL (1.40-6.50); Neutrophils % (auto) 56.2 %; Platelet Count 203 K/uL (130-400); RDW Standard Deviation 44.2 fL (36.4-46.3); Red Blood Count 3.41 M/uL (4.70-6.10); White Blood Count 4.89 K/ul (4.8-10.8)
[2023-06-12 09:12] LABS: Calcium 7.9 mg/dl (8.6-10.3); Creatinine Clr Calc Pharmacy 103.4 ml/min; Est GFR (African American) 107.8 ml/min; Potassium 3.3 mmol/L (3.5-5.1)
[2023-06-12] MEDS ORDERED: CEFDINIR 300 MG CAP HOME PACK PO ONE (12:22)
[2023-06-12] MEDS ORDERED: CEFDINIR 300 MG CAP PO SCH ×2 (12:45→21:00)
--- NOTE | 2023-06-12 14:05 | Discharge Summary ---
Discharge Summary Date of Service June 12, 2023 Notes For Next Care Provider -Per radiology, pt needs a bone scan due to possible lytic lesions noted incidentally on imaging in the setting of Hx of neoplasm -Diabetes currently well controlled with hgba1c of 5.2, consider decreasing insulin doses. Jardiance discontinued in the setting of frequent UTIs and radha infections. Medication Changes From Visit -4 more days of cefdinir 300mg BID (discharged with home pack for 3 more days). -Metoprolol dose decreased to 12.5 mg BID from 50mg BID. -Started on Vitamin D 50, 000 Units q7days (received one dose on 06/08/2023) for Vitamin D deficiency. Total course of 6 weeks, then 5000U daily. Jardiance discontinued in the setting of frequent UTIs, radha infections and indwelling lloyd. -Consider decreasing home insulin doses, hgba1c currently 5.2 Admission HPI Per Admitting Provider This is an 82-year-old male from [facility] with PMHx of CAD on aspirin and Plavix, diastolic CHF, COPD, BPH with LUTS, DM type II, HTN, indwelling Lloyd catheter who presents with dehydration and inability to check bloodwork at [facility], increased confusion and concerns for urinary tract infection. Patient is slightly confused, he knows the year but cannot answer date, season, day of the week or the town that he resides in. Patient reports he was in the [facility] today and that they were unable to get blood work after multiple attempts and therefore sent him to the ER here. He thinks that he has been eating and drinking as well as he can, patient is not sure of his medications and does not know if he is on a diuretic anymore. He denies any lower abdominal cramping, pain, dysuria or hematuria. Urine in Lloyd bag has looked like "ice tea" recently. Believes that Lloyd catheter was changed about 1 week ago, and then was done here again in the ER today. He has had indwelling Lloyd catheter for approximately 6 months per his recollection. Admission Exam Per Admitting Provider General: awake, alert, no apparent distress Head: Normocephalic, scabbed over lesion on right parietal region status post surgery ENT: PERRL, EOMI, no pharyngeal exudate, nares bilaterally have been surgically resected, mucous membranes dry Chest: Clear to auscultation, on 2 LPM NC, no adventitious breath sounds Cardiac: Regular rate and rhythm, no murmur, no JVD, normal peripheral pulses, good capillary refill Abdominal: NABS x 4 quadrants, soft, nondistended, nontender to palpation, no rebound or guarding Extremities: Normal inspection, no peripheral edema or erythema, calfs nontender to palpation Psych: Normal mood and affect Neuro: AAO to birthdate, year, not to specific date or location., strength intact bilaterally and rated 5/5 in upper extremities, 4/5 in legs bilaterally, gait not assessed, no motor deficits, speech is clear, no peripheral sensory deficits Principal Dx & Hospital Course #1 = Principal Diagnosis (1) Acute UTI: (2) BPH w/o urinary obs/LUTS: (3) Insulin dependent diabetes mellitus: (4) Hypertension: (5) CAD (coronary artery disease): Please refer to attending addendum for assessment and plan. Plan 82-year-old male from [facility] with PMH of CAD on aspirin/Plavix, diastolic CHF, COPD, BPH with LUTS, DMII, HTN, indwelling Lloyd catheter presented from [facility] secondary to dehydration, admitted with complicated UTI. Patient reported at presentation that he is eating and drinking as well as he can. Transient metabolic encephalopathy Dehydration Catheter associated UTI: Patient has indwelling Lloyd catheter, presented with confusion [improved post intervention at ED presentation] was found to be clinically dehydrated, and have UTI. Admitting CXR with no acute finding. Admitting CT abdominal pelvis: Moderate to large hiatal hernia. Diffuse osteoporosis with areas of irregular hypodensities, likely secondary to osteoporosis, difficult to exclude lytic lesions. If there is history of neoplasm, recommend dedicated full-body bone scan in nonacute setting. UA suggestive of UTI, urine culture showed yeast in urine likely colonization. DC antifungal 06/08 and monitored off of antifungal. Blood cultures x2 NGTD. Patient treated with cefepime 06/07 and fluconazole 06/08. fluconazole discontinued 06/08. Transitioned to Rocephin 06/09. Discharged with 4 more days of PO cefdinir 300mg BID. Home pack given for cefdinir as during signout to [facility] receiving provider Sugar Trivedi PA-C, it was noted that they did not have cefdinir in stock. Status post IV fluid, encourage p.o. intake. Osteoporosis/Vit D def Vitamin D level of 11.3 at presentation. Started on vitamin D 50,000 units weekly for 6 weeks then 1000 units daily. Given history of neoplasm, patient will need bone scan upon discharge. Recall abd CT noted the following incidentally:Diffuse osteoporosis with areas of irregular hypodensities, likely secondary to osteoporosis, difficult to exclude lytic lesions. If there is history of neoplasm, recommend dedicated full-body bone scan in nonacute setting. Consider starting osteoporosis medication such as fosamax outpatient. Patient has been made aware. Sinus bradycardia: Noted on EKG. c/w reduced home metoprolol dose. Hypotension: At presentation, likely secondary to decreased p.o. intake prior to arrival. Resolved. Continue BEHAVIORAL SCIENCE CHAIR antihypertensives, metoprolol dose has been decreased. Hypoglycemia: At presentation, likely secondary to decreased p.o. intake prior to arrival. Other chronic medical conditions: DM2 insulin requiring, well-controlled as of hemoglobin A1c of 5.8 last March 2023. A1c 5.2 this admission. Consider decreasing home insulin on discharge. Consider discontinuing Jardiance postdischarge due to frequent UTIs/indwelling Lloyd catheter. hx paroxysmal atrial flutter, patient currently NSR Chronic diastolic heart failure (EF 65 to 70%), patient clinically dry at presentation hx CAD status post stent hx COPD, baseline lung symptoms hyperlipidemia, on statin Rx BCC, nose status post surgery/failed flap reconstruction (December 2022) and subsequent takedown (01/2023) chronic anemia, hemoglobin at baseline history of MRSA past tobacco abuse Discharge Exam General: Alert Psych: Appropriate mood and affect Neuro: No gross deficits HEENT: noted nasal abnormality CV: RRR Resp:no increased effort of breathing. Abdomen: Soft, nontender, nondistended. Updated Medication List Medication Instructions Recorded Confirmed Type albuterol sulfate 90 mcg/actuation 2 puff inhalation QID PRN 02/15/23 06/07/23 History aerosol inhaler Shortness Of Breath aspirin 81 mg tablet,delayed 81 mg PO DAILY 02/15/23 06/07/23 History release ciclesonide 160 mcg/actuation 2 puff inhalation BID 02/15/23 06/07/23 History aerosol inhaler (Alvesco) clopidogrel 75 mg tablet (Plavix) 75 mg PO DAILY 02/15/23 06/07/23 History doxazosin 8 mg tablet 8 mg PO HS 02/15/23 06/07/23 History fluoxetine 20 mg tablet 20 mg PO DAILY 02/15/23 06/07/23 History insulin human U-100 NPH-regulr 12 unit subcut BID 02/15/23 06/07/23 History 70-30 mix 100 unit/mL subcutaneous susp (Novolin 70/30 U-100 Insulin) insulin regular human 100 unit/mL 1 sliding scale dose subcut 02/15/23 06/07/23 History injection solution (Novolin R USEASDIRECTD Regular U-100 Insulin) isosorbide mononitrate 30 mg 30 mg PO DAILY 02/15/23 06/07/23 History tablet,extended release 24 hr latanoprost 0.005 % eye drops 1 drp OPB PM 02/15/23 06/07/23 History lisinopril 40 mg tablet 40 mg PO DAILY 02/15/23 06/07/23 History menthol 0.44 %-zinc oxide 20.6 % 1 applic topical QID PRN flare ups 02/15/23 06/07/23 History topical ointment (Calmoseptine) metoprolol tartrate 50 mg tablet 50 mg PO BID 02/15/23 06/07/23 History rosuvastatin 10 mg tablet 10 mg PO DAILY 02/15/23 06/07/23 History docusate sodium 100 mg capsule 100 mg PO BID 04/08/23 06/07/23 History ferrous gluconate 324 mg (38 mg 324 mg PO DAILY 04/08/23 06/07/23 History iron) tablet bumetanide 1 mg tablet 1 mg PO 4XWK 06/07/23 06/07/23 History empagliflozin 10 mg tablet 10 mg PO DAILY 06/07/23 06/07/23 History (Jardiance) nitrofurantoin 100 mg PO BID 06/07/23 06/07/23 History monohydrate/macrocrystals 100 mg capsule (Macrobid) cefdinir 300 mg capsule 300 mg PO BID 4 days #8 caps 06/12/23 Rx ergocalciferol (vitamin D2) 1,250 50,000 unit PO Q7D #5 caps 06/12/23 Rx mcg (50,000 unit) capsule metoprolol tartrate 25 mg tablet 12.5 mg PO BID 30 days #30 tabs 06/12/23 Rx Hospital Stay Data Consultations 06/07/23 20:04 ED Decision to Admit Stat Diagnostic Imagining Performed 06/07/23 19:36 CT abd pelvis wo con Stat Discharge Instructions Given to Patient (Per Discharging Provider) 82-year-old male from [facility] with PMH of CAD on aspirin/Plavix, diastolic CHF, COPD, BPH with LUTS, DMII, HTN, indwelling Lloyd catheter presented from [facility] secondary to dehydration, admitted with complicated UTI. Patient reported at presentation that he is eating and drinking as well as he can. TO DO FOR NEXT PROVIDER: -Per radiology, pt needs a bone scan due to possible lytic lesions noted incidentally on imaging in the setting of Hx of neoplasm -Diabetes currently well controlled with hgba1c of 5.2, consider decreasing insulin doses. Jardiance discontinued in the setting of frequent UTIs and radha infections. MEDICATION CHANGES: -4 more days of cefdinir 300mg BID (discharged with home pack for 3 more days). -Metoprolol dose decreased to 12.5 mg BID from 50mg BID. -Started on Vitamin D 50, 000 Units q7days (received one dose on 06/08/2023) for Vitamin D deficiency. Total course of 6 weeks, then 5000U daily. Jardiance discontinued in the setting of frequent UTIs, radha infections and indwelling lloyd. -Consider decreasing home insulin doses, hgba1c currently 5.2 Transient metabolic encephalopathy Dehydration Catheter associated UTI: Patient has indwelling Lloyd catheter, presented with confusion [improved post intervention at ED presentation] was found to be clinically dehydrated, and have UTI. Admitting CXR with no acute finding. Admitting CT abdominal pelvis: Moderate to large hiatal hernia. Diffuse osteoporosis with areas of irregular hypodensities, likely secondary to osteoporosis, difficult to exclude lytic lesions. If there is history of neoplasm, recommend dedicated full-body bone scan in nonacute setting. UA suggestive of UTI, urine culture showed yeast in urine likely colonization. DC antifungal 06/08 and monitored off of antifungal. Blood cultures x2 NGTD. Patient treated with cefepime 06/07 and fluconazole 06/08. fluconazole discontinued 06/08. Transitioned to Rocephin 06/09. Discharged with 4 more days of PO cefdinir 300mg BID. Home pack given for cefdinir as during signout to [facility] receiving provider Sugar Trivedi PA-C, it was noted that they did not have cefdinir in stock. Status post IV fluid, encourage p.o. intake. Osteoporosis/Vit D def Vitamin D level of 11.3 at presentation. Started on vitamin D 50,000 units weekly for 6 weeks then 1000 units daily. Given history of neoplasm, patient will need bone scan upon discharge. Recall abd CT noted the following incidentally:Diffuse osteoporosis with areas of irregular hypodensities, likely secondary to osteoporosis, difficult to exclude lytic lesions. If there is history of neoplasm, recommend dedicated full-body bone scan in nonacute setting. Consider starting osteoporosis medication such as fosamax outpatient. Patient has been made aware. Sinus bradycardia: Noted on EKG. c/w reduced home metoprolol dose. Hypotension: At presentation, likely secondary to decreased p.o. intake prior to arrival. Resolved. Continue BEHAVIORAL SCIENCE CHAIR antihypertensives, metoprolol dose has been decreased. Hypoglycemia: At presentation, likely secondary to decreased p.o. intake prior to arrival. Other chronic medical conditions: DM2 insulin requiring, well-controlled as of hemoglobin A1c of 5.8 last March 2023. A1c 5.2 this admission. Consider decreasing home insulin on discharge. Consider discontinuing Jardiance postdischarge due to frequent UTIs/indwelling Lloyd catheter. hx paroxysmal atrial flutter, patient currently NSR Chronic diastolic heart failure (EF 65 to 70%), patient clinically dry at presentation hx CAD status post stent hx COPD, baseline lung symptoms hyperlipidemia, on statin Rx BCC, nose status post surgery/failed flap reconstruction (December 2022) and subsequent takedown (01/2023) chronic anemia, hemoglobin at baseline history of MRSA past tobacco abuse Total Time Total Time Spent Total Time Spent (In Minutes): >30 minutes
[2023-06-12] MEDS: cefTRIAXone SODIUM 2,000 MG in DEXTROSE 5% 50 ML IV SCH (15:48)
== END 2023-06-12 22:09 | DRG 698 ==
LOC: ED 17:10 → EDINP 22:24 → SUATTDRO 22:24 → 2W 22:41

== ENCOUNTER 2023-09-15 16:30 | Inpatient (IN) ==
[2023-09-15] MEDS ORDERED: SODIUM CHLORIDE 0.9% 500 ML IV STA (16:34)
--- NOTE | 2023-09-15 16:49 | Emergency Department Note ---
Impression & Plan Complicated urinary tract infection, MRSA (methicillin resistant staph aureus) culture positive, Anemia, Chronic indwelling Linares catheter, Incarceration ED Provider Note NAME: BERRY CORDOBA AGE: 82 SEX: M : 1940 ARRIVES VIA: Ambulance INFORMANT: [Patient][guards] ED PROVIDER(S): [Eduardo Chan MD] CHIEF COMPLAINT: Infection HISTORY OF PRESENT ILLNESS: The patient is an 82-year-old male who is currently [facility] He has a history of a chronic indwelling Linares catheter. He has had UTIs in the past. On the 17 of this month, 5 days ago, he had a urine culture sent. This has grown out over 100,000 Klebsiella pneumonia, 100,000 MRSA, 100,000 E faecalis. Because of the MRSA findings, he was sent to the ED for IV antibiotic therapy. The patient denies any pain in the lower abdomen. He has not had fever, nausea or vomiting. He is unsure why a urine sample was obtained and sent. PMHx/PSHx/Social Hx: See Below PHYSICAL EXAM: GENERAL: Patient is in no acute distress. HEENT: No acute trauma, normocephalic atraumatic, mucous membranes dry, no nasal congestion. NECK: No stridor, no adenopathy, no meningismus, trachea is midline. LUNGS: Clear to auscultation bilaterally, no wheeze, no rhonchi, breath sounds equal. HEART: Regular rhythm, not tachycardic ABDOMEN: Soft, nontender, no peritonitis. No tenderness over the lower abdomen/pelvis. Indwelling Linares catheter present. The Linares has significant debris in the tube and bag. EXTREMITIES: No cyanosis, full range of motion of all the joints without pain or difficulty. NEUROLOGIC: Awake and alert, poor historian, no acute motor or sensory deficits, no focal weakness. SKIN: No jaundice, no diaphoresis. DIFFERENTIAL DIAGNOSIS: UTI, pyelonephritis, dehydration, renal failure, electrolyte imbalance, among others. EMERGENCY DEPARTMENT PROCEDURES: MEDICAL DECISION MAKING: There is no leukocytosis. The patient is anemic however, this has been documented before. There was a normal platelet count. No renal failure or significant electrolyte abnormality. No concerning liver enzyme elevation. No evidence for pancreatitis. Urinalysis does show findings of infection, urine culture is pending. On exam, the patient was a poor historian, no fever or significant distress clinically. Urine culture from the grew 3 different organisms as noted above in the history. Based on the sensitivities, the patient was given IV cefepime and IV daptomycin. This should cover all 3 organisms. The Linares catheter was ordered to be exchanged. The patient was given IV saline for hydration, 500 cc. Given the 3 different organisms, given his incarceration and apparent need for IV antibiotic therapy, hospitalization was felt warranted. I spoke with the patient and case management, I spoke with the guards. The on- call hospitalist was consulted. Prior/Outside records/notes reviewed: Previous discharge summary from 06/12/2023 discussing his UTI and treatment. Imaging/x-ray results per my interpretation: Chronic Medical/Social conditions affecting care: Chronic indwelling Linares catheter, incarceration. [facility] Case management, the on-call hospitalist. Level of care consideration(s): After review of the information above and other included data: --I believe the patient requires escalation of care to admission DISPOSITION: Admission Past Med/Surg History Medical History COPD (chronic obstructive pulmonary disease) High blood pressure Diabetes CHF (congestive heart failure) Surgical History H/O inguinal hernia repair History of appendectomy Hx laparoscopic cholecystectomy Family History Father Coronary heart disease Diabetes Social History Smoking Status: Never smoker Tobacco Type: Cigarettes Second Hand Exposure: No; Do You Dip or Chew Tobacco: No; Hx Alcohol Use: No Hx Substance Use: No Preferred Language: Icelandic Communication Ability: Effective Communication Ability Comment: Per patient he can read and write. Police Chief Deputy Required: No Beliefs That Will Affect Care: None Current Living Situation: Other Current Living Situation Comment: [facility] Feels Safe at Home: Yes Assistive Devices: None Allergies Allergies Allergy/AdvReac Type Severity Reaction Status Date / Time Sulfa (Sulfonamide Allergy Unknown ON [facility] Verified 09/15/23 17:27 Antibiotics) [facility] MED LIST Home Meds Home Medications Medication Instructions Recorded Confirmed albuterol sulfate 90 mcg/actuation 2 puff inhalation QID PRN 02/15/23 09/15/23 aerosol inhaler Shortness Of Breath aspirin 81 mg tablet,delayed 81 mg PO DAILY 02/15/23 09/15/23 release ciclesonide 160 mcg/actuation 2 puff inhalation BID 02/15/23 09/15/23 aerosol inhaler (Alvesco) clopidogrel 75 mg tablet (Plavix) 75 mg PO DAILY 02/15/23 09/15/23 doxazosin 8 mg tablet 8 mg PO HS 02/15/23 09/15/23 fluoxetine 20 mg tablet 20 mg PO DAILY 02/15/23 09/15/23 isosorbide mononitrate 30 mg 30 mg PO DAILY 02/15/23 09/15/23 tablet,extended release 24 hr latanoprost 0.005 % eye drops 1 drp OPB PM 02/15/23 09/15/23 rosuvastatin 10 mg tablet 10 mg PO DAILY 02/15/23 09/15/23 ferrous gluconate 324 mg (38 mg 324 mg PO DAILY 04/08/23 09/15/23 iron) tablet bumetanide 0.5 mg tablet 0.5 mg PO 3XWK 09/15/23 09/15/23 cholecalciferol (vitamin D3) 25 25 mcg PO DAILY 09/15/23 09/15/23 mcg (1,000 unit) capsule (Vitamin D3) metoprolol tartrate 25 mg tablet 12.5 mg PO BID 09/15/23 09/15/23 Results & Data (ED) Vital Signs Vital Signs - 24 hr 09/15/23 16:55 09/15/23 16:55 09/15/23 17:03 Temperature 36.9 C Temperature Source Oral Pulse Rate 84 68 Respiratory Rate 18 Respiratory Effort / Characteristics Non-Labored Spontaneous Respiratory Depth Normal Respiratory Pattern Regular Blood Pressure 128/62 Blood Pressure Mean 84 Blood Pressure Position Lying Pulse Oximetry 93 93 Oxygen Delivery Method Room Air Room Air Sepsis Recent Fever Within 48 Hours No Sepsis New/Unexplained Change in Mental Status No Sepsis Action Taken by Nursing No Action Required Home Medications Current Medication List: was personally reviewed by me Laboratory Data Attestation: I reviewed the patient's lab results. 09/15/23 17:05 09/15/23 17:05 Lab Results 09/15/23 09/15/23 Range/Units 17:05 17:21 WBC 6.63 (4.8-10.8) K/ul RBC 4.21 L (4.70-6.10) M/uL Hgb 12.1 L (14.0-18.0) g/dl Hct 36.4 L (42.0-52.0) % MCV 86.5 (80.0-100.0) fL MCH 28.7 (25.0-34.0) pg MCHC 33.2 (32.0-36.0) g/dL RDW Std Deviation 43.0 (36.4-46.3) fL RDW Coeff of Sandrita 13.7 (11.5-14.5) % Plt Count 264 (130-400) K/uL MPV 10.6 (9.4-12.4) fL Immature Gran % (Auto) 0.3 % Neut % (Auto) 69.7 % Lymph % (Auto) 15.5 % Green % (Auto) 10.4 % Eos % (Auto) 3.5 % Baso % (Auto) 0.6 % Neut # (Auto) 4.62 (1.40-6.50) K/uL Lymph # (Auto) 1.03 L (1.20-3.40) K/uL Green # (Auto) 0.69 H (0.11-0.59) K/uL Eos # (Auto) 0.23 (0.00-0.50) K/uL Baso # (Auto) 0.04 (0.00-0.20) K/uL Immature Gran # (Auto) 0.02 (0.01-0.20) K/uL Sodium 140 (136-145) mmol/L Potassium 3.6 (3.5-5.1) mmol/L Chloride 109 H (98-107) mmol/L Carbon Dioxide 25 (21-32) mmol/L Anion Gap 6 (3-11) BUN 14 (6-23) mg/dl Creatinine 0.75 (0.6-1.4) mg/dl Est Cr Clr Drug Dosing 86.6 ml/min Est GFR ( Amer) 98.3 ml/min Est GFR (Non-Af Amer) 84.8 ml/min BUN/Creatinine Ratio 18.7 (10-20) Glucose 163 H (70-99(Fasting)) mg/dl Calcium 8.3 L (8.6-10.3) mg/dl Total Bilirubin 0.4 (0.2-1.0) mg/dl AST 12 L (13-39) U/L ALT 7 (7-52) U/L Alkaline Phosphatase 71 (34-104) U/L Total Protein 6.2 (6.0-8.3) gm/dl Albumin 3.1 L (3.4-5.0) gm/dl Globulin 3.1 (2.5-4.0) gm/dl Albumin/Globulin Ratio 1.0 (0.9-2) Lipase 29 (11-82) U/L Urine Color Yellow Urine Appearance Turbid A (Clear) Urine pH 6.0 (4.5-7.5) Ur Specific [place] 1.020 (1.000-1.030) Urine Protein 1+ H (Negative) Urine Glucose (UA) Negative (Negative) Urine Ketones Trace H (Negative) Urine Blood 2+ H (Negative) Urine Nitrite Positive A (Negative) Urine Bilirubin Negative (Negative) Urine Urobilinogen Negative (Negative) Ur Leukocyte Esterase 3+ H (Negative) Urine WBC (Auto) >30 H (0-5) /hpf Urine RBC (Auto) 10-30 H (0-4) /hpf U Hyaline Cast (Auto) 0 (0-5) /lpf U Epithel Cells (Auto) 10-20 H (0-5) /lpf Urine Bacteria (Auto) 4+ H (Negative) Calcium Oxalate Crystal Present A (None Prsent) Urine Yeast Not Reportable Administered Medications Discontinued Medications Sodium Chloride (Nss) 500 mls @ 999 mls/hr IV .Q31M STA Stop: 09/15/23 17:04 Last Admin: 09/15/23 17:43 Dose: 999 mls/hr Documented By: STEPHANI Discharge Plan Visit Data Chief Complaint: Infection Stated Complaint: MRSA IN URINE, NEED IV ANTIBIOTICS ED Provider: Eduardo Chan Discharge Problem: Complicated urinary tract infection, MRSA (methicillin resistant staph aureus) culture positive, Anemia, Chronic indwelling Linares catheter, Incarceration Patient Disposition: Admitted As Inpatient Condition: Fair Forms Stand Alone Forms: [facility] [employer] Prescriptions Prescriptions: No Action latanoprost 0.005 % Drops 1 drp OPB PM isosorbide mononitrate 30 mg Tablet Extended Release 24 Hr 30 mg PO DAILY Rx Instructions: HOLD IF SBP < 90. clopidogrel [Plavix] 75 mg Tablet 75 mg PO DAILY aspirin 81 mg Tablet,Delayed Release (Dr/Ec) 81 mg PO DAILY doxazosin 8 mg Tablet 8 mg PO HS Rx Instructions: HOLD IF SBP < 90 fluoxetine 20 mg Tablet 20 mg PO DAILY albuterol sulfate 90 mcg/actuation Hfa Aerosol Inhaler 2 puff INHALATION QID PRN (Reason: Shortness Of Breath) rosuvastatin 10 mg Tablet 10 mg PO DAILY Alvesco 160 mcg/actuation Hfa Aerosol Inhaler 2 puff INHALATION BID ferrous gluconate 324 mg (38 mg iron) Tablet 324 mg PO DAILY bumetanide 0.5 mg Tablet 0.5 mg PO 3XWK Rx Instructions: MON, WED, & FRI. cholecalciferol (vitamin D3) [Vitamin D3] 25 mcg (1,000 unit) Capsule 25 mcg PO DAILY metoprolol tartrate 25 mg Tablet 12.5 mg PO BID Referrals Referrals: Gregory MCCORMICK [Primary Care Provider] - Discharge Problem: Anemia Qualifiers: Anemia type: unspecified type Qualified Code(s): D64.9 - Anemia, unspecified
[2023-09-15 17:34] LABS: Basophils # (auto) 0.04 K/uL (0.00-0.20); Basophils % (auto) 0.6 %; Eosinophils # (auto) 0.23 K/uL (0.00-0.50); Eosinophils % (auto) 3.5 %; Hematocrit (blood only) 36.4 % (42.0-52.0); Hemoglobin 12.1 g/dl (14.0-18.0); Immature Granulocytes # (auto) 0.02 K/uL (0.01-0.20); Immature Granulocytes % (auto) 0.3 %; Lymphocytes # (auto) 1.03 K/uL (1.20-3.40); Lymphocytes % (auto) 15.5 %; Mean Corpuscular Hemoglobin 28.7 pg (25.0-34.0); Mean Corpuscular Hgb Conc 33.2 g/dL (32.0-36.0); Mean Corpuscular Volume 86.5 fL (80.0-100.0); Mean Platelet Volume 10.6 fL (9.4-12.4); Monocytes # (auto) 0.69 K/uL (0.11-0.59); Monocytes % (auto) 10.4 %; Neutrophils # (auto) 4.62 K/uL (1.40-6.50); Neutrophils % (auto) 69.7 %; Platelet Count 264 K/uL (130-400); RDW Coefficient of Variation 13.7 % (11.5-14.5); Red Blood Count 4.21 M/uL (4.70-6.10); White Blood Count 6.63 K/ul (4.8-10.8)
[2023-09-15 17:37] LABS: Appearance Urine Turbid (Clear); Bacteria Urine Automated 4+ (Negative); Bilirubin Urine Negative (Negative); Blood Urine 2+ (Negative); Cast Urine Automated 0 /lpf (0-5); Color Urine Yellow; Glucose Urine UA Negative (Negative); Ketones Urine Trace (Negative); Leukocyte Esterase Urine 3+ (Negative); Nitrite Urine Positive (Negative); Protein Urine 1+ (Negative); Urobilinogen Urine Negative (Negative); WBC Urine Automated >30 /hpf (0-5)
[2023-09-15 17:47] LABS: Albumin Level 3.1 gm/dl (3.4-5.0); BUN Creatinine Ratio 18.7 (10-20); Bilirubin,Total 0.4 mg/dl (0.2-1.0); Calcium 8.3 mg/dl (8.6-10.3); Creatinine Clr Calc Pharmacy 86.6 ml/min; Est GFR (African American) 98.3 ml/min; Est GFR (Non-African American) 84.8 ml/min; Globulin 3.1 gm/dl (2.5-4.0); Potassium 3.6 mmol/L (3.5-5.1); Total Protein 6.2 gm/dl (6.0-8.3)
[2023-09-15 18:01] LABS: Calcium Oxalate Crystals Urine Present (None Prsent)
[2023-09-15] MEDS ORDERED: DAPTOmycin 500 MG in SYRINGE 0 ML IV STA (18:17)
[2023-09-15] MEDS ORDERED: CEFEPIME 2,000 MG/20 ML VIAL IV STA (18:17)
--- NOTE | 2023-09-15 19:29 | History & Physical Report ---
Date of Service September 15, 2023 Assessment & Plan (1) Complicated urinary tract infection: (2) Chronic indwelling Linares catheter: (3) BPH (benign prostatic hyperplasia): (4) MRSA (methicillin resistant staph aureus) culture positive: Plan: Admit to [facility] Patient presenting from [facility] for evaluation and treatment of polymicrobial UTI requiring IV antibiotics. Patient with history of BPH with chronic indwelling Linares catheter. Patient was complaining of dysuria and urine culture was obtained on 09/10 which grew Klebsiella, MRSA, Enterococcus faecalis Does not appear septic, afebrile, no leukocytosis S/p Dapto and cefepime in the ED. Sensitivities reviewed, will continue with IV ceftriaxone and IV daptomycin Catheter exchanged in ED Urology consult --patient inquiring if Linares catheter can be removed ID consult (5) CAD (coronary artery disease): Plan: Appears stable, no reports of chest pain Continue ASA and beta-mynor. Holding statin while on daptomycin therapy. (6) Chronic diastolic CHF (congestive heart failure): Plan: Appears euvolemic Continue home dose Bumex (7) Diabetes: Plan: Required insulin in the past, diabetes currently diet controlled Hgb A1c 5.2 05/2023 NovoLog per protocol while hospitalized (8) Anemia: Plan: Chronic, stable Continue iron replacement DVT PROPHYLAXIS SQ Lovenox Patient seen in collaboration with Dr. Ortega. I spent a total of 75 minutes coordinating, documenting, and providing care for this patient excluding time spent in the performance of separately billed services. This included personally reviewing all current laboratories and imaging studies, medication reconciliation, outpatient chart review, and discussion with specialists. History of Present Illness Chief Complaint: UTI Primary Care Provider: [facility] Heather 82-year-old male incarcerated at [facility] with PMH CAD, BPH with chronic indwelling Linares catheter, HTN, chronic diastolic CHF, chronic anemia, diet- controlled diabetes, and other problems listed below who presents to the ED for evaluation of polymicrobial UTI. History obtained from the patient and review of records sent from [facility]. Patient was reporting burning with urination and urine culture was obtained on 09/10 that resulted with MRSA, Klebsiella, Enterococcus faecalis. Patient was referred to the ED for administration of IV antibiotics. Patient is a poor historian. Patient denies fevers and chills. No chest pain or shortness of breath. Denies lightheadedness, dizziness, diaphoresis, syncopal events. No abdominal pain, nausea, vomiting, diarrhea. R eports ongoing symptoms of acid reflux despite using Tums. In the ED, patient is hemodynamically stable and afebrile. Labs are unremarkable. Patient was given IV cefepime, IV Dapto, IVF. Allergies Allergy/AdvReac Type Severity Reaction Status Date / Time Sulfa (Sulfonamide Allergy Unknown ON SCI Verified 09/15/23 17:27 Antibiotics) [facility] MED LIST Home Medications Medication Instructions Recorded Confirmed Type albuterol sulfate 90 mcg/actuation 2 puff inhalation QID PRN 02/15/23 09/15/23 History aerosol inhaler Shortness Of Breath aspirin 81 mg tablet,delayed 81 mg PO DAILY 02/15/23 09/15/23 History release ciclesonide 160 mcg/actuation 2 puff inhalation BID 02/15/23 09/15/23 History aerosol inhaler (Alvesco) clopidogrel 75 mg tablet (Plavix) 75 mg PO DAILY 02/15/23 09/15/23 History doxazosin 8 mg tablet 8 mg PO HS 02/15/23 09/15/23 History fluoxetine 20 mg tablet 20 mg PO DAILY 02/15/23 09/15/23 History isosorbide mononitrate 30 mg 30 mg PO DAILY 02/15/23 09/15/23 History tablet,extended release 24 hr latanoprost 0.005 % eye drops 1 drp OPB PM 02/15/23 09/15/23 History rosuvastatin 10 mg tablet 10 mg PO DAILY 02/15/23 09/15/23 History ferrous gluconate 324 mg (38 mg 324 mg PO DAILY 04/08/23 09/15/23 History iron) tablet bumetanide 0.5 mg tablet 0.5 mg PO 3XWK 09/15/23 09/15/23 History cholecalciferol (vitamin D3) 25 25 mcg PO DAILY 09/15/23 09/15/23 History mcg (1,000 unit) capsule (Vitamin D3) metoprolol tartrate 25 mg tablet 12.5 mg PO BID 09/15/23 09/15/23 History Past Med/Surg History Medical History Basal cell carcinoma BPH (benign prostatic hyperplasia) Chronic diastolic CHF (congestive heart failure) Chronic indwelling Linares catheter MRSA (methicillin resistant staph aureus) culture positive CAD (coronary artery disease) History of OH and coronary stent Hypertension COPD (chronic obstructive pulmonary disease) Diabetes CHF (congestive heart failure) Surgical History Status post Mohs surgery Hx laparoscopic cholecystectomy History of appendectomy H/O inguinal hernia repair Family History Father Coronary heart disease Diabetes Social History Smoking Status: Never smoker Tobacco Type: Cigarettes Second Hand Exposure: No; Do You Dip or Chew Tobacco: No; Hx Alcohol Use: No Hx Substance Use: No Preferred Language: Setswana Communication Ability: Effective Communication Ability Comment: Per patient he can read and write. [employer] Required: No Beliefs That Will Affect Care: None Current Living Situation: Other Current Living Situation Comment: [facility] Feels Safe at Home: Yes Assistive Devices: None Physical Exam Physical Exam: Please refer to Dr. Ortega's addendum for physical exam Results & Data Results & Data Vital Signs (Past 12 Hours) Vital Signs Temp Pulse Pulse Resp BP BP Pulse Ox 09/15/23 19:08 60 18 146/73 H 96 09/15/23 17:03 68 09/15/23 16:55 93 09/15/23 16:55 36.9 C 84 18 128/62 93 O2 Del Method 09/15/23 19:08 Room Air 09/15/23 17:03 09/15/23 16:55 Room Air 09/15/23 16:55 Room Air Laboratory Results Short CBC 09/15/23 Range/Units 17:05 WBC 6.63 (4.8-10.8) K/ul Hgb 12.1 L (14.0-18.0) g/dl Hct 36.4 L (42.0-52.0) % Plt Count 264 (130-400) K/uL BMP 09/15/23 17:05 Sodium 140 Potassium 3.6 Chloride 109 H Carbon Dioxide 25 BUN 14 Creatinine 0.75 Glucose 163 H Calcium 8.3 L Liver Function 09/15/23 Range/Units 17:05 Total Bilirubin 0.4 (0.2-1.0) mg/dl AST 12 L (13-39) U/L ALT 7 (7-52) U/L Alkaline Phosphatase 71 (34-104) U/L Albumin 3.1 L (3.4-5.0) gm/dl Urine 09/15/ Range/Units 17:21 Urine Color Yellow Urine Appearance Turbid A (Clear) Urine pH 6.0 (4.5-7.5) Ur Specific [place] 1.020 (1.000-1.030) Urine Protein 1+ H (Negative) Urine Glucose (UA) Negative (Negative) Code Status & VTE Plan VTE Prophylaxis Plan VTE Prophylaxis will be ordered: Yes Supervising Physician Co-Signing Physician Notes Patient is an 82-year-old male with history of coronary artery disease, multiple UTIs, chronic indwelling Linares catheter, diastolic heart failure, diabetes mellitus and other medical problems was sent from [facility] for management of polymicrobial complicated urinary tract infection, requiring IV antibiotics. Patient admits to have dysuria since 5 days duration but denies any hematuria, fever, chills, chest pain, dyspnea. Also reports intermittent abdominal discomfort with food intake associated with loose bowel movements. Reviewed outpatient urine cultures growing MRSA, Klebsiella, Enterococcus faecalis. Linares catheter was exchanged while in ED. Patient states having interest to discontinue Linares catheter and inquires about inability to follow-up with urology. I personally reviewed blood work, prior imaging studies. Physical Exam: Vitals signs as noted above General Appearance:Moderately built and nourished, no apparent distress Head: normocephalic, Atraumatic,+Nasal deformity Eyes: normal inspection, EOMI Neck: supple, Trachea midline Respiratory/Chest: Decreased breath sounds, CTA, No accessory muscle use Cardiovascular: S1, S2, No murmur Abdomen/GI:Soft, Non tender, Bowel sounds present Extremities/Musculoskeletal:normal inspection, no edema Neurologic/Psych:AAOX3, grossly no focal neurological deficits ,+ significant hearing impairment Skin: normal color, warm Catheter associated complicated urinary tract infection Blood, urine cultures Started on broad-spectrum IV antibiotics based on recent cultures as outpatient Urology consulted given multiple UTIs, chronic indwelling Linares catheter Obtain stool studies if recurrence of diarrhea I personally reviewed the record. Patient is interviewed and examined at bedside. Patient's care is coordinated with Anila Brower NP. Please refer to the documentation above for details of patient's presentation and for discussion of other issues. (8) Anemia Anemia type: unspecified type Qualified Code(s): D64.9 - Anemia, unspecified
[2023-09-16] MEDS ORDERED: DEXTROSE 50% 50 ML SYRINGE IV PRN (02:04)
[2023-09-16] MEDS ORDERED: GLUCOSE 10 TAB/TUBE PO PRN (02:04)
[2023-09-16] MEDS ORDERED: GLUCAGON FOR INJ 1 MG VIAL SQ PRN (02:04)
[2023-09-16] MEDS ORDERED: CARBOHYDRATES FOR HYPOGLYCEMIA PO PRN (02:04)
[2023-09-16] MEDS ORDERED: GLUCOSE 40% GEL 15 GM TUBE PO PRN (02:04)
[2023-09-16] MEDS ORDERED: ACETAMINOPHEN 325 MG TAB PO PRN (02:04)
[2023-09-16] MEDS: METOPROLOL TARTRATE 25 MG TAB PO SCH ×3 (03:16→20:24)
[2023-09-16] MEDS: LATANOPROST 0.005% OP SOLN 2.5 ML BTL OPB SCH ×2 (03:17→20:25)
[2023-09-16] MEDS: FAMOTIDINE 20 MG TAB PO SCH ×3 (03:18→20:26)
[2023-09-16] MEDS: DOXAZosin MESYLATE 4 MG TAB PO SCH ×2 (03:19→20:25)
[2023-09-16] MEDS: INSULIN ASPART PER UNIT CHARGE SC SCH ×5 (03:28→20:25)
[2023-09-16 04:52] LABS: Hematocrit (blood only) 37.3 % (42.0-52.0); Hemoglobin 12.4 g/dl (14.0-18.0); Mean Corpuscular Hemoglobin 28.4 pg (25.0-34.0); Mean Corpuscular Hgb Conc 33.2 g/dL (32.0-36.0); Mean Corpuscular Volume 85.4 fL (80.0-100.0); Mean Platelet Volume 10.2 fL (9.4-12.4); Platelet Count 248 K/uL (130-400); RDW Coefficient of Variation 13.9 % (11.5-14.5); RDW Standard Deviation 43.6 fL (36.4-46.3); Red Blood Count 4.37 M/uL (4.70-6.10); White Blood Count 7.17 K/ul (4.8-10.8)
[2023-09-16 05:05] LABS: BUN Creatinine Ratio 15.8 (10-20); Calcium 8.5 mg/dl (8.6-10.3); Creatinine Clr Calc Pharmacy 85.5 ml/min; Est GFR (African American) 97.8 ml/min; Est GFR (Non-African American) 84.4 ml/min; Potassium 3.9 mmol/L (3.5-5.1)
[2023-09-16] MEDS: cefTRIAXone SODIUM 2,000 MG in DEXTROSE 5 % MINI-B 50 ML IV SCH (05:28)
[2023-09-16] MEDS: ADVANCED PROBIOTIC 1250 MG CAPSULE PO SCH (08:50)
[2023-09-16] MEDS: ASPIRIN 81 MG ECTAB PO SCH (08:50)
[2023-09-16] MEDS: CLOPIDOGREL BISULFATE 75 MG TAB PO SCH (08:50)
[2023-09-16] MEDS: ISOSORBIDE MONO EXTENDED REL 30 MG TABCR PO SCH (08:50)
[2023-09-16] MEDS: FLUoxetine HCL 20 MG CAP PO SCH (08:51)
[2023-09-16] MEDS: FERROUS GLUCONATE 324 MG TAB PO SCH (08:51)
[2023-09-16] MEDS: FLUTICASONE FUROATE 200MCG 14 PUFFS/INHALER INH SCH (08:51)
[2023-09-16] MEDS: ENOXAPARIN INJ 40 MG/0.4 ML SYR SQ SCH (08:51)
--- NOTE | 2023-09-16 08:58 | Hospitalist Progress Note ---
Date of Service September 16, 2023 Assessment & Plan (1) Complicated urinary tract infection: (2) Chronic indwelling Linares catheter: (3) BPH (benign prostatic hyperplasia): (4) MRSA (methicillin resistant staph aureus) culture positive: Plan: Catheter associated complicated urinary tract infection Patient presenting from [facility] for evaluation and treatment of polymicrobial UTI requiring IV antibiotics. Patient with history of BPH with chronic indwelling Linares catheter. Patient was complaining of dysuria and urine culture was obtained on 09/10 which grew Klebsiella, MRSA, Enterococcus faecalis Does not appear septic, afebrile, no leukocytosis S/p Dapto and cefepime in the ED. Sensitivities reviewed, will continue with IV ceftriaxone and IV daptomycin Catheter exchanged in ED Urology consulted (patient was inquiring if Linares catheter can be removed - per report). Currently denies Linares bothering him. ID consulted (5) CAD (coronary artery disease): Plan: Appears stable, no reports of chest pain Continue ASA and beta-mynor. Holding statin while on daptomycin therapy. (6) Chronic diastolic CHF (congestive heart failure): Plan: Appears euvolemic Continue home dose Bumex (7) Diabetes: Plan: Required insulin in the past, diabetes currently diet controlled Hgb A1c 5.2 05/2023 NovoLog per protocol while hospitalized (8) Anemia: Plan: Chronic, stable Continue iron replacement DVT PROPHYLAXIS SQ Lovenox Admission and Anticipated Discharge Date Admission Date: September 15, 2023 Subjective Pt seen in follow up of complicated UTI, has chronic Linares catheter Urology and ID consulted Pt currently laying in bed in NAD Says he feels better and that Linares catheter is not bothering him at this time He is very poor historian Currently denies fever, chills, chest pain, shortness of breath Review of Systems Review of Systems: All systems reviewed & are unremarkable except as noted in Subjective Physical Exam Physical Exam: General Appearance:Moderately built and nourished, no apparent distress Head: normocephalic, Atraumatic,+Nasal deformity Eyes: normal inspection, EOMI Neck: supple, Trachea midline Respiratory/Chest: Decreased breath sounds, CTA, No accessory muscle use Cardiovascular: S1, S2, No murmur Abdomen/GI:Soft, Non tender, Bowel sounds present Extremities/Musculoskeletal:normal inspection, no edema Neurologic/Psych:AAOX3, grossly no focal neurological deficits ,+ significant hearing impairment Skin: normal color, warm Results & Data Results & Data Vital Signs (Past 12 Hours) Vital Signs Pulse Pulse Resp BP BP Pulse Ox O2 Del Method 09/16/23 07:45 64 09/16/23 07:00 64 18 134/66 91 09/16/23 03:00 55 L 16 115/64 09/16/23 01:12 91 Room Air 09/16/23 00:00 60 18 120/59 L 09/15/23 23:25 60 09/15/23 21:31 57 L 18 122/63 Room Air Laboratory Results 09/16/23 09/16/23 09/16/23 Range/Units 08:14 04:24 03:25 WBC 7.17 (4.8-10.8) K/ul RBC 4.37 L (4.70-6.10) M/uL Hgb 12.4 L (14.0-18.0) g/dl Hct 37.3 L (42.0-52.0) % MCV 85.4 (80.0-100.0) fL MCH 28.4 (25.0-34.0) pg MCHC 33.2 (32.0-36.0) g/dL RDW Std Deviation 43.6 (36.4-46.3) fL RDW Coeff of Sandrita 13.9 (11.5-14.5) % Plt Count 248 (130-400) K/uL MPV 10.2 (9.4-12.4) fL Immature Gran % (Auto) % Neut % (Auto) % Lymph % (Auto) % [place] % (Auto) % Eos % (Auto) % Baso % (Auto) % Neut # (Auto) (1.40-6.50) K/uL Lymph # (Auto) (1.20-3.40) K/uL [place] # (Auto) (0.11-0.59) K/uL Eos # (Auto) (0.00-0.50) K/uL Baso # (Auto) (0.00-0.20) K/uL Immature Gran # (Auto) (0.01-0.20) K/uL Sodium 139 (136-145) mmol/L Potassium 3.9 (3.5-5.1) mmol/L Chloride 108 H (98-107) mmol/L Carbon Dioxide 25 (21-32) mmol/L Anion Gap 6 (3-11) BUN 12 (6-23) mg/dl Creatinine 0.76 (0.6-1.4) mg/dl Est Cr Clr Drug Dosing 85.5 ml/min Est GFR ( Amer) 97.8 ml/min Est GFR (Non-Af Amer) 84.4 ml/min BUN/Creatinine Ratio 15.8 (10-20) Glucose 94 (70-99(Fasting)) mg/dl POC Glucose 90 93 (70-99) mg/dl Calcium 8.5 L (8.6-10.3) mg/dl Total Bilirubin (0.2-1.0) mg/dl AST (13-39) U/L ALT (7-52) U/L Alkaline Phosphatase (34-104) U/L Total Protein (6.0-8.3) gm/dl Albumin (3.4-5.0) gm/dl Globulin (2.5-4.0) gm/dl Albumin/Globulin Ratio (0.9-2) Lipase (11-82) U/L Urine Color Urine Appearance (Clear) Urine pH (4.5-7.5) Ur Specific [place] (1.000-1.030) Urine Protein (Negative) Urine Glucose (UA) (Negative) Urine Ketones (Negative) Urine Blood (Negative) Urine Nitrite (Negative) Urine Bilirubin (Negative) Urine Urobilinogen (Negative) Ur Leukocyte Esterase (Negative) Urine WBC (Auto) (0-5) /hpf Urine RBC (Auto) (0-4) /hpf U Hyaline Cast (Auto) (0-5) /lpf U Epithel Cells (Auto) (0-5) /lpf Urine Bacteria (Auto) (Negative) Calcium Oxalate Crystal (None Prsent) Urine Yeast 09/15/23 09/15/23 Range/Units 17:21 17:05 WBC 6.63 (4.8-10.8) K/ul RBC 4.21 L (4.70-6.10) M/uL Hgb 12.1 L (14.0-18.0) g/dl Hct 36.4 L (42.0-52.0) % MCV 86.5 (80.0-100.0) fL MCH 28.7 (25.0-34.0) pg MCHC 33.2 (32.0-36.0) g/dL RDW Std Deviation 43.0 (36.4-46.3) fL RDW Coeff of Sandrita 13.7 (11.5-14.5) % Plt Count 264 (130-400) K/uL MPV 10.6 (9.4-12.4) fL Immature Gran % (Auto) 0.3 % Neut % (Auto) 69.7 % Lymph % (Auto) 15.5 % [place] % (Auto) 10.4 % Eos % (Auto) 3.5 % Baso % (Auto) 0.6 % Neut # (Auto) 4.62 (1.40-6.50) K/uL Lymph # (Auto) 1.03 L (1.20-3.40) K/uL [place] # (Auto) 0.69 H (0.11-0.59) K/uL Eos # (Auto) 0.23 (0.00-0.50) K/uL Baso # (Auto) 0.04 (0.00-0.20) K/uL Immature Gran # (Auto) 0.02 (0.01-0.20) K/uL Sodium 140 (136-145) mmol/L Potassium 3.6 (3.5-5.1) mmol/L Chloride 109 H (98-107) mmol/L Carbon Dioxide 25 (21-32) mmol/L Anion Gap 6 (3-11) BUN 14 (6-23) mg/dl Creatinine 0.75 (0.6-1.4) mg/dl Est Cr Clr Drug Dosing 86.6 ml/min Est GFR ( Amer) 98.3 ml/min Est GFR (Non-Af Amer) 84.8 ml/min BUN/Creatinine Ratio 18.7 (10-20) Glucose 163 H (70-99(Fasting)) mg/dl POC Glucose (70-99) mg/dl Calcium 8.3 L (8.6-10.3) mg/dl Total Bilirubin 0.4 (0.2-1.0) mg/dl AST 12 L (13-39) U/L ALT 7 (7-52) U/L Alkaline Phosphatase 71 (34-104) U/L Total Protein 6.2 (6.0-8.3) gm/dl Albumin 3.1 L (3.4-5.0) gm/dl Globulin 3.1 (2.5-4.0) gm/dl Albumin/Globulin Ratio 1.0 (0.9-2) Lipase 29 (11-82) U/L Urine Color Yellow Urine Appearance Turbid A (Clear) Urine pH 6.0 (4.5-7.5) Ur Specific [place] 1.020 (1.000-1.030) Urine Protein 1+ H (Negative) Urine Glucose (UA) Negative (Negative) Urine Ketones Trace H (Negative) Urine Blood 2+ H (Negative) Urine Nitrite Positive A (Negative) Urine Bilirubin Negative (Negative) Urine Urobilinogen Negative (Negative) Ur Leukocyte Esterase 3+ H (Negative) Urine WBC (Auto) >30 H (0-5) /hpf Urine RBC (Auto) 10-30 H (0-4) /hpf U Hyaline Cast (Auto) 0 (0-5) /lpf U Epithel Cells (Auto) 10-20 H (0-5) /lpf Urine Bacteria (Auto) 4+ H (Negative) Calcium Oxalate Crystal Present A (None Prsent) Urine Yeast Not Reportable Medications Administered Current Inpatient Medications Acetaminophen (Acetaminophen 325 Mg Tab) 650 mg PO Q4H PRN PRN Reason: pain/fever Stop: 10/16/23 02:03 Aspirin (Aspirin 81 Mg Ectab) 81 mg PO DAILY [facility] Stop: 10/16/23 08:59 Last Admin: 09/16/23 08:50 Dose: 81 mg Bumetanide (Bumetanide 1 Mg Tab) 0.5 mg PO [id number]@0900 [facility] Stop: 10/17/23 08:59 Clopidogrel Bisulfate (Clopidogrel Bisulfate 75 Mg Tab) 75 mg PO DAILY [facility] Stop: 10/16/23 08:59 Last Admin: 09/16/23 08:50 Dose: 75 mg Dextrose (Dextrose 50% 50 Ml Syringe) 25 - 50 ml IV UD PRN; Protocol PRN Reason: Hypoglycemia Protocol Stop: 10/16/23 02:03 Doxazosin Mesylate (Doxazosin Mesylate 4 Mg Tab) 8 mg PO HS [facility] Stop: 10/16/23 02:03 Last Admin: 09/16/23 03:19 Dose: 8 mg Enoxaparin Sodium (Enoxaparin Inj 40 Mg/0.4 Ml Syr) 40 mg SQ Q24H [facility] Stop: 10/16/23 08:59 Last Admin: 09/16/23 08:51 Dose: 40 mg Famotidine (Famotidine 20 Mg Tab) 20 mg PO BID [facility] Stop: 10/16/23 02:03 Last Admin: 09/16/23 08:50 Dose: 20 mg Ferrous Gluconate (Ferrous Gluconate 324 Mg Tab) 324 mg PO DAILY [facility] Stop: 10/16/23 08:59 Last Admin: 09/16/23 08:51 Dose: 324 mg Fluoxetine HCl (Fluoxetine Hcl 20 Mg Cap) 20 mg PO DAILY [facility] Stop: 10/16/23 08:59 Last Admin: 09/16/23 08:51 Dose: 20 mg Fluticasone Furoate (Fluticasone Furoate 200mcg 14 Puffs/Inhaler) 1 puffs INH DAILY [facility] Stop: 10/16/23 08:59 Last Admin: 09/16/23 08:51 Dose: 1 puffs Glucagon (Glucagon For Inj 1 Mg Vial) 1 mg SQ UD PRN; Protocol PRN Reason: Hypoglycemia Protocol Stop: 10/16/23 02:03 Glucose (Glucose 10 Tab/Tube) 4 - 8 tab PO UD PRN; Protocol PRN Reason: Hypoglycemia Treatment Stop: 10/16/23 02:03 Glucose (Glucose 40% Gel 15 Gm Tube) 15 - 30 gm PO UD PRN; Protocol PRN Reason: Hypoglycemia Protocol Stop: 10/16/23 02:03 Ceftriaxone Sodium 2,000 mg/ (Dextrose) 50 mls @ 100 mls/hr IV Q24H [facility]; Protocol Stop: 09/26/23 05:59 Last Infusion: 09/16/23 08:17 Dose: Infused Daptomycin 450 mg/ Syringe 9 mls @ 4.5 mls/min IV Q24H [facility]; Protocol Stop: 09/26/23 17:59 Insulin Aspart (Insulin Aspart Per Unit Charge) 0 units SC ACHS [facility] Stop: 10/16/23 02:03 Last Admin: 09/16/23 12:41 Dose: 3 units Isosorbide Mononitrate (Isosorbide [place] Extended Rel 30 Mg Tabcr) 30 mg PO DAILY [facility] Stop: 10/16/23 08:59 Last Admin: 09/16/23 08:50 Dose: 30 mg Lactobacillus Acidophilus (Advanced Probiotic 1250 Mg Capsule) 2 cap PO DAILY [facility] Stop: 10/16/23 08:59 Last Admin: 09/16/23 08:50 Dose: 2 cap Latanoprost (Latanoprost 0.005% Op Soln 2.5 Ml Btl) 1 drops OPB PM [facility] Stop: 10/16/23 02:03 Last Admin: 09/16/23 03:17 Dose: 1 drops Metoprolol Tartrate (Metoprolol Tartrate 25 Mg Tab) 12.5 mg PO BID [facility] Stop: 10/16/23 02:03 Last Admin: 09/16/23 08:51 Dose: 12.5 mg Miscellaneous (Carbohydrates For Hypoglycemia ) 15 - 30 gm PO UD PRN PRN Reason: Hypoglycemia Protocol Stop: 10/16/23 02:03 (8) Anemia Anemia type: unspecified type Qualified Code(s): D64.9 - Anemia, unspecified
--- NOTE | 2023-09-16 17:06 | Urology Consultation ---
Date of Consultation September 16, 2023 Assessment & Plan (1) Chronic indwelling Linares catheter: (2) BPH (benign prostatic hyperplasia): (3) Urinary tract infection: (4) Renal insufficiency: (5) Chronic diastolic CHF (congestive heart failure): (6) Complicated urinary tract infection: (7) Diabetes: (8) CAD (coronary artery disease): Plan Patient admitted for significant infection, lower urinary tract symptoms bother. Has catheter in place. Has been dealing with increasing issues. Is interested in a trial of having the catheter removed. Is undergoing broad- spectrum antibiotics for coverage of significant infection with history of severely resistant infection. Patient's complicated medical and surgical history was reviewed and summarized above patient had previously seen Dr. Au. Has had leakage and urinary issues in the past. Has been dealing with catheterization. Patient's previous imaging was reviewed interpreted by myself no recent imaging of the system. Will likely need ultrasound to assess bladder and kidneys. Patient's labs are all reviewed pertinent values in the HPI and plan section. White count 7.17, creatinine 0.76, hemoglobin 12.4. UA was grossly positive. Patient does have catheter in place which is draining appropriately. Vitals were all reviewed. Mild borderline hypotension this evening but otherwise normal with temperature of 36.6 and no major episodes of fevers throughout the hospitalization. Discussed continued monitoring management. Could consider catheter removal tomorrow morning with trial of void in order to see if patient is able to void independently. With ongoing infection may require further catheterization and management. Will plan to continue to monitor intermittently for spontaneous voiding and resolution of infection. Will have patient follow-up with Dr. Au as an outpatient. History of Present Illness Attending Physician: Brad Byrd MD History of Present Illness New consultation for patient with UTI/Pyelo, discomfort, and ill feelings. Patient is an inmate had worsening ill feelings. Has previously had urologic issues had previously followed with Dr. Au. Found to have significant infection. Patient developed sudden onset of pain into flank going down and radiating into groin and back in waves comes and goes. Can be severe at times. Discussed and reviewed patient's family history for any history of issues, infections, and disease. Also, discussed patient's medical/surgery history especially related to any history of urinary issues or stone disease. Patient was admitted and is undergoing observation with broad spectrum IV antibiotics. Allergies Allergy/AdvReac Type Severity Reaction Status Date / Time Sulfa (Sulfonamide Allergy Unknown ON SCI Verified 09/15/23 17:27 Antibiotics) [facility] MED LIST Home Medications Medication Instructions Recorded Confirmed Type albuterol sulfate 90 mcg/actuation 2 puff inhalation QID PRN 02/15/23 09/15/23 History aerosol inhaler Shortness Of Breath aspirin 81 mg tablet,delayed 81 mg PO DAILY 02/15/23 09/15/23 History release ciclesonide 160 mcg/actuation 2 puff inhalation BID 02/15/23 09/15/23 History aerosol inhaler (Alvesco) clopidogrel 75 mg tablet (Plavix) 75 mg PO DAILY 02/15/23 09/15/23 History doxazosin 8 mg tablet 8 mg PO HS 02/15/23 09/15/23 History fluoxetine 20 mg tablet 20 mg PO DAILY 02/15/23 09/15/23 History isosorbide mononitrate 30 mg 30 mg PO DAILY 02/15/23 09/15/23 History tablet,extended release 24 hr latanoprost 0.005 % eye drops 1 drp OPB PM 02/15/23 09/15/23 History rosuvastatin 10 mg tablet 10 mg PO DAILY 02/15/23 09/15/23 History ferrous gluconate 324 mg (38 mg 324 mg PO DAILY 04/08/23 09/15/23 History iron) tablet bumetanide 0.5 mg tablet 0.5 mg PO 3XWK 09/15/23 09/15/23 History cholecalciferol (vitamin D3) 25 25 mcg PO DAILY 09/15/23 09/15/23 History mcg (1,000 unit) capsule (Vitamin D3) metoprolol tartrate 25 mg tablet 12.5 mg PO BID 09/15/23 09/15/23 History Patient History Medical History Basal cell carcinoma BPH (benign prostatic hyperplasia) Chronic diastolic CHF (congestive heart failure) Chronic indwelling Linares catheter MRSA (methicillin resistant staph aureus) culture positive CAD (coronary artery disease) History of CT and coronary stent Hypertension COPD (chronic obstructive pulmonary disease) Diabetes CHF (congestive heart failure) Surgical History Status post Mohs surgery Hx laparoscopic cholecystectomy History of appendectomy H/O inguinal hernia repair Family History Father Coronary heart disease Diabetes Social History Smoking Status: Former smoker Tobacco Type: Cigarettes Second Hand Exposure: No; Do You Dip or Chew Tobacco: No; Hx Alcohol Use: No Hx Substance Use: No Preferred Language: Israeli Communication Ability: Effective Communication Ability Comment: Per patient he can read and write. Title I Director Required: No Beliefs That Will Affect Care: None Current Living Situation: Other Current Living Situation Comment: [facility] Feels Safe at Home: Yes Safety Concerns: Feels Safe At This Time Assistive Devices: None Review of Systems Review of Systems: All systems reviewed & are unremarkable except as noted in HPI & below Physical Exam Physical Exam: General: Alert and oriented x 3 in no acute distress. Patient is well nourished and well kept. HEENT: Normocephalic Atraumatic. Inspection normal. Cranial Nerves 2-12 Grossly intact. Previous resection on nose with wound. Neck is supple. Normal inspection of face. Neurologic: No deficits on inspection. Baseline for motor function and sensory. Psychologic: Normal affect. Respiratory: Nonlabored. No use of accessory muscles. No tachypnea or dyspnea. Cardiovascular: No tachycardia Skin: [place] and Dry. No rashes or visible lesions. Extremities: Moving without issues. No motor deficits on inspection Lymphatics: No edema Abdomen: Soft Non-distended. No rebound or guarding. : Catheter in place draining clear yellow urine Results & Data Vital Signs (Past 12 Hours) Vital Signs Temp Pulse Pulse Resp BP BP Pulse Ox 09/16/23 14:43 36.6 C 65 16 108/68 95 09/16/23 12:19 37 C 60 18 101/61 95 09/16/23 11:48 09/16/23 10:01 71 17 117/71 09/16/23 09:00 60 14 152/84 H 94 09/16/23 08:00 66 14 144/91 H 92 09/16/23 07:45 64 09/16/23 07:00 64 18 134/66 91 O2 Del Method 09/16/23 14:43 Room Air 09/16/23 12:19 Room Air 09/16/23 11:48 Room Air 09/16/23 10:01 09/16/23 09:00 09/16/23 08:00 09/16/23 07:45 09/16/23 07:00 PG Care Time/CCT Total # of Minutes Spent Total Time Spent with Patient: Total time spent is greater than 50% in coordination of care (as documented) at patient's floor/unit and/or counseling patient: Coding Level of Care Code 64038 INT INP/OBS CARE 3/75MIN Diagnoses Chronic indwelling Linares catheter Z97.8 BPH (benign prostatic hyperplasia) N40.0 Urinary tract infection T83.511A; N39.0 Encounter type: initial encounter Indwelling urinary catheter type: indwelling urethral catheter Urinary tract infection type: catheter-associated UTI Renal insufficiency N28.9 Chronic diastolic CHF (congestive heart failure) I50.32 Complicated urinary tract infection N39.0 Diabetes E11.9 CAD (coronary artery disease) I25.10 (3) Urinary tract infection Encounter type: initial encounter Indwelling urinary catheter type: indwelling urethral catheter Urinary tract infection type: catheter-associated UTI Qualified Code(s): T83.511A - Infection and inflammatory reaction due to indwelling urethral catheter, initial encounter; N39.0 - Urinary tract infection, site not specified
[2023-09-16] MEDS: DAPTOmycin 450 MG in SYRINGE 0 ML IV SCH (17:35)
[2023-09-16 22:01] LABS: A calco-baum cmplx NotReported Not Detected (NotDetected); Bact fragilis Not Reported Not Detected (NotDetected); Blood Culture Id Panel See PCR Comment (NotDetected); C auris Not Reported Not Detected (NotDetected); Calbicans Not Reported Not Detected (NotDetected); Candida glabrata Not Reported Not Detected (NotDetected); Candida krusei Not Reported Not Detected (NotDetected); Cneoformans/gatti Not Reported Not Detected (NotDetected); Cparapsilosis Not Reported Not Detected (NotDetected); E cloacae compx Not Reported Not Detected (NotDetected); Efaecalis Not Reported Not Detected (NotDetected); Efaecium Not Reported Not Detected (NotDetected); Enterobacterales Not Reported Not Detected (NotDetected); Escherichia coli Not Reported Not Detected (NotDetected); H influenzae Not Reported Not Detected (NotDetected); K aerogenes Not Reported Not Detected (NotDetected); Koxytoca Not Reported Not Detected (NotDetected); Kpneumoniae grp Not Reported Not Detected (NotDetected); Lmonocyt Not Reported Not Detected (NotDetected); N meningitidis Not Reported Not Detected (NotDetected); P aeruginosa Not Reported Not Detected (NotDetected); Proteus spp Not Reported Not Detected (NotDetected); Salmonella spp Not Reported Not Detected (NotDetected); Smarcescens Not Reported Not Detected (NotDetected); Staph lugdunensis Not Reported Not Detected (NotDetected); Staph spp. Not Reported DETECTED (NotDetected); Staphaureus Not Reported Not Detected (NotDetected); Staphepi Not Reported Not Detected (NotDetected); Stenmaltophilia Not Reported Not Detected (NotDetected); Strep agal(GrpB) Not Reported Not Detected (NotDetected); Strep pneum Not Reported Not Detected (NotDetected); Strep pyog (GrpA) Not Reported Not Detected (NotDetected); Strep spp Not Reported Not Detected (NotDetected)
[2023-09-16 22:10] LABS: Staphylococcus spp. DETECTED (NotDetected)
[2023-09-17] MEDS: cefTRIAXone SODIUM 2,000 MG in DEXTROSE 5 % MINI-B 50 ML IV SCH (06:37)
[2023-09-17 06:59] LABS: Hematocrit (blood only) 37.3 % (42.0-52.0); Hemoglobin 12.5 g/dl (14.0-18.0); Mean Corpuscular Hemoglobin 28.5 pg (25.0-34.0); Mean Corpuscular Hgb Conc 33.5 g/dL (32.0-36.0); Platelet Count 234 K/uL (130-400); RDW Coefficient of Variation 13.5 % (11.5-14.5); RDW Standard Deviation 42.2 fL (36.4-46.3); Red Blood Count 4.39 M/uL (4.70-6.10); White Blood Count 6.01 K/ul (4.8-10.8)
[2023-09-17 07:17] LABS: BUN Creatinine Ratio 15.5 (10-20); Calcium 8.4 mg/dl (8.6-10.3); Creatinine Clr Calc Pharmacy 77.4 ml/min; Est GFR (African American) 93.8 ml/min; Magnesium 1.8 mg/dl (1.7-2.4); Potassium 3.7 mmol/L (3.5-5.1)
--- NOTE | 2023-09-17 07:46 | Hospitalist Progress Note ---
Date of Service September 17, 2023 Assessment & Plan (1) Complicated urinary tract infection: (2) Chronic indwelling Linares catheter: (3) BPH (benign prostatic hyperplasia): (4) MRSA (methicillin resistant staph aureus) culture positive: Plan: Catheter associated complicated urinary tract infection Patient presenting from [facility] for evaluation and treatment of polymicrobial UTI requiring IV antibiotics. Patient with history of BPH with chronic indwelling Linares catheter. Patient was complaining of dysuria and urine culture was obtained on 09/10 which grew Klebsiella, MRSA, Enterococcus faecalis Does not appear septic, afebrile, no leukocytosis S/p Dapto and cefepime in the ED. Sensitivities reviewed, will continue with IV ceftriaxone and IV daptomycin Catheter exchanged in ED Urology consulted (patient was inquiring if Linares catheter can be removed - per report). Currently denies Linares bothering him but he would still like it to be removed. Per urology, can attempt avoiding trial. Discussed w/ RN ID consulted urine culture from ED - multiple organisms, will obtain a new sample blood culture - 10/28 coag negat staph not lugd. - likely contaminant (5) CAD (coronary artery disease): Plan: Appears stable, no reports of chest pain Continue ASA and beta-mynor. Holding statin while on daptomycin therapy. (6) Chronic diastolic CHF (congestive heart failure): Plan: Appears euvolemic Continue home dose Bumex (7) Diabetes: Plan: Required insulin in the past, diabetes currently diet controlled Hgb A1c 5.2 05/2023 NovoLog per protocol while hospitalized (8) Anemia: Plan: Chronic, stable Continue iron replacement DVT PROPHYLAXIS SQ Lovenox Admission and Anticipated Discharge Date Admission Date: September 15, 2023 Subjective Pt seen in follow up of complicated UTI, has chronic Linares catheter Urology and ID consulted Pt currently laying in bed in NAD Says he feels better and that Linares catheter is not bothering him as much but he would like it removed Currently denies fever, chills, chest pain, shortness of breath Seen by urology yesterday - can try voiding trial Review of Systems Review of Systems: All systems reviewed & are unremarkable except as noted in Subjective Physical Exam Physical Exam: General Appearance:Moderately built and nourished, no apparent distress Head: normocephalic, Atraumatic,+Nasal deformity Eyes: normal inspection, EOMI Neck: supple, Trachea midline Respiratory/Chest: Decreased breath sounds, CTA, No accessory muscle use Cardiovascular: S1, S2, No murmur Abdomen/GI:Soft, Non tender, Bowel sounds present : drains clear yellow urine Extremities/Musculoskeletal:normal inspection, no edema Neurologic/Psych:AAOX3, grossly no focal neurological deficits ,+ significant hearing impairment Skin: normal color, warm Results & Data Results & Data Vital Signs (Past 12 Hours) Vital Signs Temp Pulse Resp BP Pulse Ox O2 Del Method 09/17/23 07:42 36.4 C L 53 L 15 152/78 H 98 Room Air 09/16/23 20:00 36.6 C 68 18 128/69 96 Room Air Laboratory Results 09/17/23 09/17/23 09/16/23 Range/Units 07:41 06:41 19:58 WBC 6.01 (4.8-10.8) K/ul RBC 4.39 L (4.70-6.10) M/uL Hgb 12.5 L (14.0-18.0) g/dl Hct 37.3 L (42.0-52.0) % MCV 85.0 (80.0-100.0) fL MCH 28.5 (25.0-34.0) pg MCHC 33.5 (32.0-36.0) g/dL RDW Std Deviation 42.2 (36.4-46.3) fL RDW Coeff of Sandrita 13.5 (11.5-14.5) % Plt Count 234 (130-400) K/uL MPV 10.0 (9.4-12.4) fL Sodium 137 (136-145) mmol/L Potassium 3.7 (3.5-5.1) mmol/L Chloride 106 (98-107) mmol/L Carbon Dioxide 26 (21-32) mmol/L Anion Gap 5 (3-11) BUN 13 (6-23) mg/dl Creatinine 0.84 (0.6-1.4) mg/dl Est Cr Clr Drug Dosing 77.4 ml/min Est GFR ( Amer) 93.8 ml/min Est GFR (Non-Af Amer) 81.0 ml/min BUN/Creatinine Ratio 15.5 (10-20) Glucose 90 (70-99(Fasting)) mg/dl POC Glucose 88 97 (70-99) mg/dl Calcium 8.4 L (8.6-10.3) mg/dl Phosphorus 3.0 (2.5-4.9) mg/dl Magnesium 1.8 (1.7-2.4) mg/dl Staphylococcus sp PCR (NotDetected) Bld Cult ID Panel PCR (NotDetected) 09/16/23 09/16/23 09/16/23 Range/Units 16:46 12:17 08:14 WBC (4.8-10.8) K/ul RBC (4.70-6.10) M/uL Hgb (14.0-18.0) g/dl Hct (42.0-52.0) % MCV (80.0-100.0) fL MCH (25.0-34.0) pg MCHC (32.0-36.0) g/dL RDW Std Deviation (36.4-46.3) fL RDW Coeff of Sandrita (11.5-14.5) % Plt Count (130-400) K/uL MPV (9.4-12.4) fL Sodium (136-145) mmol/L Potassium (3.5-5.1) mmol/L Chloride (98-107) mmol/L Carbon Dioxide (21-32) mmol/L Anion Gap (3-11) BUN (6-23) mg/dl Creatinine (0.6-1.4) mg/dl Est Cr Clr Drug Dosing ml/min Est GFR ( Amer) ml/min Est GFR (Non-Af Amer) ml/min BUN/Creatinine Ratio (10-20) Glucose (70-99(Fasting)) mg/dl POC Glucose 107 H 115 H 90 (70-99) mg/dl Calcium (8.6-10.3) mg/dl Phosphorus (2.5-4.9) mg/dl Magnesium (1.7-2.4) mg/dl Staphylococcus sp PCR (NotDetected) Bld Cult ID Panel PCR (NotDetected) 09/15/23 Range/Units 19:53 WBC (4.8-10.8) K/ul RBC (4.70-6.10) M/uL Hgb (14.0-18.0) g/dl Hct (42.0-52.0) % MCV (80.0-100.0) fL MCH (25.0-34.0) pg MCHC (32.0-36.0) g/dL RDW Std Deviation (36.4-46.3) fL RDW Coeff of Sandrita (11.5-14.5) % Plt Count (130-400) K/uL MPV (9.4-12.4) fL Sodium (136-145) mmol/L Potassium (3.5-5.1) mmol/L Chloride (98-107) mmol/L Carbon Dioxide (21-32) mmol/L Anion Gap (3-11) BUN (6-23) mg/dl Creatinine (0.6-1.4) mg/dl Est Cr Clr Drug Dosing ml/min Est GFR ( Amer) ml/min Est GFR (Non-Af Amer) ml/min BUN/Creatinine Ratio (10-20) Glucose (70-99(Fasting)) mg/dl POC Glucose (70-99) mg/dl Calcium (8.6-10.3) mg/dl Phosphorus (2.5-4.9) mg/dl Magnesium (1.7-2.4) mg/dl Staphylococcus sp PCR DETECTED A (NotDetected) Bld Cult ID Panel PCR See PCR Comment (NotDetected) Medications Administered Current Inpatient Medications Acetaminophen (Acetaminophen 325 Mg Tab) 650 mg PO Q4H PRN PRN Reason: pain/fever Stop: 10/16/23 02:03 Aspirin (Aspirin 81 Mg Ectab) 81 mg PO DAILY MENDOZA Stop: 10/16/23 08:59 Last Admin: 09/16/23 08:50 Dose: 81 mg Bumetanide (Bumetanide 1 Mg Tab) 0.5 mg PO MoWeFr@0900 MENDOZA Stop: 10/17/23 08:59 Clopidogrel Bisulfate (Clopidogrel Bisulfate 75 Mg Tab) 75 mg PO DAILY MENDOZA Stop: 10/16/23 08:59 Last Admin: 09/16/23 08:50 Dose: 75 mg Dextrose (Dextrose 50% 50 Ml Syringe) 25 - 50 ml IV UD PRN; Protocol PRN Reason: Hypoglycemia Protocol Stop: 10/16/23 02:03 Doxazosin Mesylate (Doxazosin Mesylate 4 Mg Tab) 8 mg PO HS MENDOZA Stop: 10/16/23 02:03 Last Admin: 09/16/23 20:25 Dose: 8 mg Enoxaparin Sodium (Enoxaparin Inj 40 Mg/0.4 Ml Syr) 40 mg SQ Q24H [facility]END[facility] Stop: 10/16/23 08:59 Last Admin: 09/16/23 08:51 Dose: 40 mg Famotidine (Famotidine 20 Mg Tab) 20 mg PO BID MENDOZA Stop: 10/16/23 02:03 Last Admin: 09/16/23 20:26 Dose: 20 mg Ferrous Gluconate (Ferrous Gluconate 324 Mg Tab) 324 mg PO DAILY MENDOZA Stop: 10/16/23 08:59 Last Admin: 09/16/23 08:51 Dose: 324 mg Fluoxetine HCl (Fluoxetine Hcl 20 Mg Cap) 20 mg PO DAILY MENDOZA Stop: 10/16/23 08:59 Last Admin: 09/16/23 08:51 Dose: 20 mg Fluticasone Furoate (Fluticasone Furoate 200mcg 14 Puffs/Inhaler) 1 puffs INH DAILY MENDOZA Stop: 10/16/23 08:59 Last Admin: 09/16/23 08:51 Dose: 1 puffs Glucagon (Glucagon For Inj 1 Mg Vial) 1 mg SQ UD PRN; Protocol PRN Reason: Hypoglycemia Protocol Stop: 10/16/23 02:03 Glucose (Glucose 10 Tab/Tube) 4 - 8 tab PO UD PRN; Protocol PRN Reason: Hypoglycemia Treatment Stop: 10/16/23 02:03 Glucose (Glucose 40% Gel 15 Gm Tube) 15 - 30 gm PO UD PRN; Protocol PRN Reason: Hypoglycemia Protocol Stop: 10/16/23 02:03 Ceftriaxone Sodium 2,000 mg/ (Dextrose) 50 mls @ 100 mls/hr IV Q24H [facility]; Protocol Stop: 09/26/23 05:59 Last Infusion: 09/17/23 07:15 Dose: Infused Daptomycin 450 mg/ Syringe 9 mls @ 4.5 mls/min IV Q24H [facility]; Protocol Stop: 09/26/23 17:59 Last Admin: 09/16/23 17:35 Dose: 4.5 mls/min Insulin Aspart (Insulin Aspart Per Unit Charge) 0 units SC ACHS [facility] Stop: 10/16/23 02:03 Last Admin: 09/16/23 20:25 Dose: Not Given Isosorbide Mononitrate (Isosorbide [place] Extended Rel 30 Mg Tabcr) 30 mg PO DAILY MENDOZA Stop: 10/16/23 08:59 Last Admin: 09/16/23 08:50 Dose: 30 mg Lactobacillus Acidophilus (Advanced Probiotic 1250 Mg Capsule) 2 cap PO DAILY MENDOZA Stop: 10/16/23 08:59 Last Admin: 09/16/23 08:50 Dose: 2 cap Latanoprost (Latanoprost 0.005% Op Soln 2.5 Ml Btl) 1 drops OPB PM [facility]ENDOZA Stop: 10/16/23 02:03 Last Admin: 09/16/23 20:25 Dose: 1 drops Metoprolol Tartrate (Metoprolol Tartrate 25 Mg Tab) 12.5 mg PO BID [facility] Stop: 10/16/23 02:03 Last Admin: 09/16/23 20:24 Dose: 12.5 mg Miscellaneous (Carbohydrates For Hypoglycemia ) 15 - 30 gm PO UD PRN PRN Reason: Hypoglycemia Protocol Stop: 10/16/23 02:03 (8) Anemia Anemia type: unspecified type Qualified Code(s): D64.9 - Anemia, unspecified
[2023-09-17] MEDS: INSULIN ASPART PER UNIT CHARGE SC SCH ×4 (08:25→20:53)
[2023-09-17] MEDS: METOPROLOL TARTRATE 25 MG TAB PO SCH ×2 (08:25→20:53)
[2023-09-17] MEDS: CLOPIDOGREL BISULFATE 75 MG TAB PO SCH (08:26)
[2023-09-17] MEDS: FERROUS GLUCONATE 324 MG TAB PO SCH (08:26)
[2023-09-17] MEDS: BUMETANIDE 1 MG TAB PO SCH (08:26)
[2023-09-17] MEDS: FLUoxetine HCL 20 MG CAP PO SCH (08:26)
[2023-09-17] MEDS: ASPIRIN 81 MG ECTAB PO SCH (08:26)
[2023-09-17] MEDS: ISOSORBIDE MONO EXTENDED REL 30 MG TABCR PO SCH (08:27)
[2023-09-17] MEDS: ADVANCED PROBIOTIC 1250 MG CAPSULE PO SCH (08:27)
[2023-09-17] MEDS: ENOXAPARIN INJ 40 MG/0.4 ML SYR SQ SCH (08:27)
[2023-09-17] MEDS: FLUTICASONE FUROATE 200MCG 14 PUFFS/INHALER INH SCH (08:28)
[2023-09-17] MEDS: FAMOTIDINE 20 MG TAB PO SCH ×2 (08:29→20:52)
--- NOTE | 2023-09-17 08:59 | Ultrasound Report ---
ULTRASOUND KIDNEYS AND BLADDER CLINICAL HISTORY: Urinary retention. Infection. COMPARISON STUDY: Abdominal CT dated 06/07/2023. TECHNIQUE: Real-time, grayscale, and color flow sonography of the kidneys and bladder is performed. I mages are reviewed in the transverse and longitudinal planes. FINDINGS: Kidneys: The kidneys are normal in size and echotexture. The right kidney measures 11.6 cm in length and the left kidney measures 11.0 cm in length. There is no hydronephrosis. No shadowing renal calcu li are identified. There is no sonographic evidence of contour deforming renal mass lesion. No perine phric fluid is identified. Bladder: The bladder is largely decompressed around a Linares catheter and not well evaluated. Ureteral jets were not seen. IMPRESSION: 1. The kidneys are normal in size and without hydronephrosis. 2. The bladder is decompressed around a Linares catheter and not well evaluated. ACT 112: Negative or not required by law. Electronically signed by: Eduardo Daniels M.D. 09/17/2023 8:57 AM
--- NOTE | 2023-09-17 10:17 | Infectious Disease Consult ---
Date of Service September 17, 2023 Telehealth Information I performed this visit using a real-time telehealth connection between my location and the patients location ([facility]). After connecting through interactive tele-video, patient was identified by name and date of and/or wristband check.Patient (or authorized healthcare pest control service representative) was informed that this was a telemedicine visit and it was being conducted confidentially over secure lines. My office door was closed and no one else was present in the room with me.Patient (or authorized healthcare pest control service representative) provided consent to proceed with the visit, expressed an understanding of privacy and security of the telemedicine visit, and gave permission to have a hospital pest control service representative in the room in order to assist with the visit and to conduct portions of the visit, as needed. I informed the patient (or authorized healthcare pest control service representative) that I reviewed their record and presented the opportunity for them to ask any questions regarding the visit today. The patient agreed to participate. Assessment & Plan (1) Chronic indwelling Linares catheter: (2) Urinary tract infection: (3) CAD (coronary artery disease): (4) MRSA (methicillin resistant staph aureus) culture positive: (5) BPH (benign prostatic hyperplasia): (6) Hypertension: (7) Chronic diastolic CHF (congestive heart failure): (8) Incarceration: (9) Anemia: (10) Complicated urinary tract infection: (11) Diabetes: Plan Assessment: This is an 82-year-old male [facility] with PMHx of CAD on aspirin and Plavix, diastolic CHF, COPD, BPH with LUTS, DM type II, HTN, indwelling Linares catheter who presented to [facility] on 09/15/2023 with dehydration and inability to check bloodwork at [facility], increased confusion and concerns for urinary tract infection. At [facility], pt started on Ceftriaxone and Daptomycin with improvement in AMS and burning with urination. Urine culture returned polymicrobial and blood cultures returned positive for GPCs in 1/4 bottles. Plan: - Recommend continuing Ceftriaxone and Daptomycin IV for now. Please contact Micro and determine whether GPC is Staph Aureus or CoNS. If CoNS then this blood culture result would be considered contamination and I would recommend stopping Daptomycin IV at that time. If Staph Aureus, we will have to re-evaluate so please contact the ID team. Ceftriaxone okay to continue due to patient UTI. - Anticipate the need for 7-14 days of antibiotics depends on follow-up data. - we will not monitor peripherally, please contact ID team for further recommendation as I can not routinely monitor the chart, will give update recs when contacted via phone or EMR. Thank you. History of Present Illness History of Present Illness Reason for Consult: poly microbial UTI This is an 82-year-old male from [facility] with PMHx of CAD on aspirin and Plavix, diastolic CHF, COPD, BPH with LUTS, DM type II, HTN, indwelling Linares catheter who presented to [facility] on 09/15/2023 with dehydration and inability to check bloodwork at [facility], increased confusion and concerns for urinary tract infection. Per notes and chart review, pt was slightly confused. Pt denied any lower abdominal cramping, pain, dysuria or hematuria. Urine in Linares bag has looked like "ice tea" recently. Believes that Linares catheter was changed about 1 week ago, and then was done here again in the ER today. He has had indwelling Linares catheter for approximately 6 months per his recollection. At [facility], pt started on Ceftriaxone and Daptomycin with improvement in AMS and burning with urination. Urine culture returned polymicrobial and blood cultures returned positive for GPCs in 1/4 bottles. Today, pt doing well with resolution of many complaints. Allergies Allergy/AdvReac Type Severity Reaction Status Date / Time Sulfa (Sulfonamide Allergy Unknown ON SCI Verified 09/15/23 17:27 Antibiotics) [facility] MED LIST Home Medications Medication Instructions Recorded Confirmed Type albuterol sulfate 90 mcg/actuation 2 puff inhalation QID PRN 02/15/23 09/15/23 History aerosol inhaler Shortness Of Breath aspirin 81 mg tablet,delayed 81 mg PO DAILY 02/15/23 09/15/23 History release ciclesonide 160 mcg/actuation 2 puff inhalation BID 02/15/23 09/15/23 History aerosol inhaler (Alvesco) clopidogrel 75 mg tablet (Plavix) 75 mg PO DAILY 02/15/23 09/15/23 History doxazosin 8 mg tablet 8 mg PO HS 02/15/23 09/15/23 History fluoxetine 20 mg tablet 20 mg PO DAILY 02/15/23 09/15/23 History isosorbide mononitrate 30 mg 30 mg PO DAILY 02/15/23 09/15/23 History tablet,extended release 24 hr latanoprost 0.005 % eye drops 1 drp OPB PM 02/15/23 09/15/23 History rosuvastatin 10 mg tablet 10 mg PO DAILY 02/15/23 09/15/23 History ferrous gluconate 324 mg (38 mg 324 mg PO DAILY 04/08/23 09/15/23 History iron) tablet bumetanide 0.5 mg tablet 0.5 mg PO 3XWK 09/15/23 09/15/23 History cholecalciferol (vitamin D3) 25 25 mcg PO DAILY 09/15/23 09/15/23 History mcg (1,000 unit) capsule (Vitamin D3) metoprolol tartrate 25 mg tablet 12.5 mg PO BID 09/15/23 09/15/23 History Patient History Medical History Basal cell carcinoma BPH (benign prostatic hyperplasia) Chronic diastolic CHF (congestive heart failure) Chronic indwelling Linares catheter MRSA (methicillin resistant staph aureus) culture positive CAD (coronary artery disease) History of AK and coronary stent Hypertension COPD (chronic obstructive pulmonary disease) Diabetes CHF (congestive heart failure) Surgical History Status post Mohs surgery Hx laparoscopic cholecystectomy History of appendectomy H/O inguinal hernia repair Family History Father Coronary heart disease Diabetes Social History Smoking Status: Former smoker Tobacco Type: Cigarettes Second Hand Exposure: No; Do You Dip or Chew Tobacco: No; Hx Alcohol Use: No Hx Substance Use: No Preferred Language: Faroese Communication Ability: Effective Communication Ability Comment: Per patient he can read and write. Personnel Monitor Required: No Beliefs That Will Affect Care: None Current Living Situation: Other Current Living Situation Comment: [facility] Feels Safe at Home: Yes Safety Concerns: Feels Safe At This Time Assistive Devices: None Review of Systems Reviewed all and currently negative. Physical Exam Physical Exam Gen: Chronically ill appearing HEENT: Normal appearing except for nose malformation. Results & Data Vital Signs (Past 12 Hours) Vital Signs Temp Pulse Resp BP Pulse Ox O2 Del Method 09/17/23 07:42 36.4 C L 53 L 15 152/78 H 98 Room Air Laboratory Results Urine culture on 09/15/2023 Urine Culture Final 09/16/23-1240 Three types of organisms present, all high counts. Repeat collection recommended. No further identifications or sensitivities to follow. Blood culture in 1/4 bottles on 09/15/2023 Blood Culture Aerobic Preliminary 09/17/23 Organism 1 Gram positive cocci clusters Sens Sensitivities Dependent on Further Identification Blood Culture PCR Panel If viewing in EMR, results available under LAB Serology tab. Diagnostic Findings US Kidney on 09/17/2023 IMPRESSION: 1. The kidneys are normal in size and without hydronephrosis. 2. The bladder is decompressed around a Linares catheter and not well evaluated. Medications Administered Pt is currently on: Ceftriaxone IV Daptomycin IV (2) Urinary tract infection Encounter type: initial encounter Indwelling urinary catheter type: indwelling urethral catheter Urinary tract infection type: catheter-associated UTI Qualified Code(s): T83.511A - Infection and inflammatory reaction due to indwelling urethral catheter, initial encounter; N39.0 - Urinary tract infection, site not specified (9) Anemia Anemia type: unspecified type Qualified Code(s): D64.9 - Anemia, unspecified
[2023-09-17] MEDS: DAPTOmycin 450 MG in SYRINGE 0 ML IV SCH (18:20)
[2023-09-17] MEDS: DOXAZosin MESYLATE 4 MG TAB PO SCH (20:51)
[2023-09-17] MEDS: LATANOPROST 0.005% OP SOLN 2.5 ML BTL OPB SCH (20:52)
[2023-09-18] MEDS: cefTRIAXone SODIUM 2,000 MG in DEXTROSE 5 % MINI-B 50 ML IV SCH (05:14)
--- NOTE | 2023-09-18 08:42 | Hospitalist Progress Note ---
Date of Service September 18, 2023 Assessment & Plan (1) Complicated urinary tract infection: (2) Chronic indwelling Linares catheter: (3) BPH (benign prostatic hyperplasia): (4) MRSA (methicillin resistant staph aureus) culture positive: Plan: Catheter associated complicated urinary tract infection Patient presenting from [facility] for evaluation and treatment of polymicrobial UTI requiring IV antibiotics. Patient with history of BPH with chronic indwelling Linares catheter. Patient was complaining of dysuria and urine culture was obtained on 09/10 which grew Klebsiella, MRSA, Enterococcus faecalis Does not appear septic, afebrile, no leukocytosis S/p Dapto and cefepime in the ED. Sensitivities reviewed, continued with IV ceftriaxone and IV daptomycin Catheter exchanged in ED Urology consulted (patient was inquiring if Linares catheter can be removed - per report). Per urology, can attempt avoiding trial. ID consulted urine culture from ED - multiple organisms, will obtain a new sample blood culture - 10/28 coag negat staph not lugd. - likely contaminant 09/18 - Linares removed and pt is voiding Follow urine cultx and discuss w/ ID (5) CAD (coronary artery disease): Plan: Appears stable, no reports of chest pain Continue ASA and beta-mynor. Holding statin while on daptomycin therapy. (6) Chronic diastolic CHF (congestive heart failure): Plan: Appears euvolemic Continue home dose Bumex (7) Diabetes: Plan: Required insulin in the past, diabetes currently diet controlled Hgb A1c 5.2 05/2023 NovoLog per protocol while hospitalized (8) Anemia: Plan: Chronic, stable Continue iron replacement DVT PROPHYLAXIS SQ Lovenox Admission and Anticipated Discharge Date Admission Date: September 15, 2023 Subjective Pt seen in follow up of complicated UTI, has chronic Linares catheter Urology and ID consulted Pt currently laying in bed in NAD Linares catheter was removed and pt is voiding Currently denies fever, chills, chest pain, shortness of breath Review of Systems Review of Systems: All systems reviewed & are unremarkable except as noted in Subjective Physical Exam Physical Exam: General Appearance:Moderately built and nourished, no apparent distress Head: normocephalic, Atraumatic,+Nasal deformity Eyes: normal inspection, EOMI Neck: supple, Trachea midline Respiratory/Chest: Decreased breath sounds, CTA, No accessory muscle use Cardiovascular: S1, S2, No murmur Abdomen/GI:Soft, Non tender, Bowel sounds present Extremities/Musculoskeletal:normal inspection, no edema Neurologic/Psych:AAOX3, grossly no focal neurological deficits ,+ significant hearing impairment Skin: normal color, warm Results & Data Results & Data Vital Signs (Past 12 Hours) Vital Signs Temp Pulse Resp BP Pulse Ox O2 Del Method 09/18/23 07:05 36.3 C L 57 L 18 154/87 H 94 Room Air Laboratory Results 09/18/23 09/18/23 09/18/23 Range/Units 16:37 11:26 09:06 WBC 4.91 (4.8-10.8) K/ul RBC 4.47 L (4.70-6.10) M/uL Hgb 12.7 L (14.0-18.0) g/dl Hct 38.8 L (42.0-52.0) % MCV 86.8 (80.0-100.0) fL MCH 28.4 (25.0-34.0) pg MCHC 32.7 (32.0-36.0) g/dL RDW Std Deviation 42.2 (36.4-46.3) fL RDW Coeff of Sandrita 13.5 (11.5-14.5) % Plt Count 235 (130-400) K/uL MPV 10.0 (9.4-12.4) fL Sodium 138 (136-145) mmol/L Potassium 3.6 (3.5-5.1) mmol/L Chloride 105 (98-107) mmol/L Carbon Dioxide 27 (21-32) mmol/L Anion Gap 6 (3-11) BUN 10 (6-23) mg/dl Creatinine 0.74 (0.6-1.4) mg/dl Est Cr Clr Drug Dosing 87.8 ml/min Est GFR ( Amer) 98.9 ml/min Est GFR (Non-Af Amer) 85.3 ml/min BUN/Creatinine Ratio 13.5 (10-20) Glucose 117 H (70-99(Fasting)) mg/dl POC Glucose 112 H 93 (70-99) mg/dl Calcium 8.5 L (8.6-10.3) mg/dl Phosphorus 3.1 (2.5-4.9) mg/dl Magnesium 1.8 (1.7-2.4) mg/dl 11/25/23 11/24/23 Range/Units 07:33 20:07 WBC (4.8-10.8) K/ul RBC (4.70-6.10) M/uL Hgb (14.0-18.0) g/dl Hct (42.0-52.0) % MCV (80.0-100.0) fL MCH (25.0-34.0) pg MCHC (32.0-36.0) g/dL RDW Std Deviation (36.4-46.3) fL RDW Coeff of Sandrita (11.5-14.5) % Plt Count (130-400) K/uL MPV (9.4-12.4) fL Sodium (136-145) mmol/L Potassium (3.5-5.1) mmol/L Chloride (98-107) mmol/L Carbon Dioxide (21-32) mmol/L Anion Gap (3-11) BUN (6-23) mg/dl Creatinine (0.6-1.4) mg/dl Est Cr Clr Drug Dosing ml/min Est GFR ( Amer) ml/min Est GFR (Non-Af Amer) ml/min BUN/Creatinine Ratio (10-20) Glucose (70-99(Fasting)) mg/dl POC Glucose 86 140 H (70-99) mg/dl Calcium (8.6-10.3) mg/dl Phosphorus (2.5-4.9) mg/dl Magnesium (1.7-2.4) mg/dl Medications Administered Current Inpatient Medications Acetaminophen (Acetaminophen 325 Mg Tab) 650 mg PO Q4H PRN PRN Reason: pain/fever Stop: 10/16/23 02:03 Last Admin: 09/17/23 20:51 Dose: 650 mg Aspirin (Aspirin 81 Mg Ectab) 81 mg PO DAILY [facility] Stop: 10/16/23 08:59 Last Admin: 09/17/23 08:26 Dose: 81 mg Bumetanide (Bumetanide 1 Mg Tab) 0.5 mg PO MoWeFr@0900 [facility] Stop: 10/17/23 08:59 Last Admin: 09/17/23 08:26 Dose: 0.5 mg Clopidogrel Bisulfate (Clopidogrel Bisulfate 75 Mg Tab) 75 mg PO DAILY [facility] Stop: 10/16/23 08:59 Last Admin: 09/17/23 08:26 Dose: 75 mg Dextrose (Dextrose 50% 50 Ml Syringe) 25 - 50 ml IV UD PRN; Protocol PRN Reason: Hypoglycemia Protocol Stop: 10/16/23 02:03 Doxazosin Mesylate (Doxazosin Mesylate 4 Mg Tab) 8 mg PO HS [facility] Stop: 10/16/23 02:03 Last Admin: 09/17/23 20:51 Dose: 8 mg Enoxaparin Sodium (Enoxaparin Inj 40 Mg/0.4 Ml Syr) 40 mg SQ Q24H [facility] Stop: 10/16/23 08:59 Last Admin: 09/17/23 08:27 Dose: 40 mg Famotidine (Famotidine 20 Mg Tab) 20 mg PO BID [facility] Stop: 10/16/23 02:03 Last Admin: 09/17/23 20:52 Dose: 20 mg Ferrous Gluconate (Ferrous Gluconate 324 Mg Tab) 324 mg PO DAILY [facility] Stop: 10/16/23 08:59 Last Admin: 09/17/23 08:26 Dose: 324 mg Fluoxetine HCl (Fluoxetine Hcl 20 Mg Cap) 20 mg PO DAILY [facility] Stop: 10/16/23 08:59 Last Admin: 09/17/23 08:26 Dose: 20 mg Fluticasone Furoate (Fluticasone Furoate 200mcg 14 Puffs/Inhaler) 1 puffs INH DAILY [facility] Stop: 10/16/23 08:59 Last Admin: 09/17/23 08:28 Dose: 1 puffs Glucagon (Glucagon For Inj 1 Mg Vial) 1 mg SQ UD PRN; Protocol PRN Reason: Hypoglycemia Protocol Stop: 10/16/23 02:03 Glucose (Glucose 10 Tab/Tube) 4 - 8 tab PO UD PRN; Protocol PRN Reason: Hypoglycemia Treatment Stop: 10/16/23 02:03 Glucose (Glucose 40% Gel 15 Gm Tube) 15 - 30 gm PO UD PRN; Protocol PRN Reason: Hypoglycemia Protocol Stop: 10/16/23 02:03 Ceftriaxone Sodium 2,000 mg/ (Dextrose) 50 mls @ 100 mls/hr IV Q24H [facility]; Protocol Stop: 09/26/23 05:59 Last Infusion: 09/18/23 05:54 Dose: Infused Daptomycin 450 mg/ Syringe 9 mls @ 4.5 mls/min IV Q24H [facility]; Protocol Stop: 09/26/23 17:59 Last Admin: 09/17/23 18:20 Dose: 4.5 mls/min Insulin Aspart (Insulin Aspart Per Unit Charge) 0 units SC ACHS [facility] Stop: 10/16/23 02:03 Last Admin: 09/17/23 20:53 Dose: Not Given Isosorbide Mononitrate (Isosorbide [place] Extended Rel 30 Mg Tabcr) 30 mg PO DAILY [facility] Stop: 10/16/23 08:59 Last Admin: 09/17/23 08:27 Dose: 30 mg Lactobacillus Acidophilus (Advanced Probiotic 1250 Mg Capsule) 2 cap PO DAILY [facility] Stop: 10/16/23 08:59 Last Admin: 09/17/23 08:27 Dose: 2 cap Latanoprost (Latanoprost 0.005% Op Soln 2.5 Ml Btl) 1 drops OPB PM [facility] Stop: 10/16/23 02:03 Last Admin: 09/17/23 20:52 Dose: 1 drops Metoprolol Tartrate (Metoprolol Tartrate 25 Mg Tab) 12.5 mg PO BID [facility] Stop: 10/16/23 02:03 Last Admin: 09/17/23 20:53 Dose: Not Given Miscellaneous (Carbohydrates For Hypoglycemia ) 15 - 30 gm PO UD PRN PRN Reason: Hypoglycemia Protocol Stop: 10/16/23 02:03 (8) Anemia Anemia type: unspecified type Qualified Code(s): D64.9 - Anemia, unspecified
[2023-09-18] MEDS: INSULIN ASPART PER UNIT CHARGE SC SCH ×4 (09:00→20:19)
[2023-09-18] MEDS: FAMOTIDINE 20 MG TAB PO SCH ×2 (09:21→20:18)
[2023-09-18] MEDS: ENOXAPARIN INJ 40 MG/0.4 ML SYR SQ SCH (09:22)
[2023-09-18] MEDS: METOPROLOL TARTRATE 25 MG TAB PO SCH ×2 (09:22→20:19)
[2023-09-18] MEDS: FERROUS GLUCONATE 324 MG TAB PO SCH (09:23)
[2023-09-18] MEDS: CLOPIDOGREL BISULFATE 75 MG TAB PO SCH (09:23)
[2023-09-18] MEDS: FLUTICASONE FUROATE 200MCG 14 PUFFS/INHALER INH SCH (09:23)
[2023-09-18] MEDS: FLUoxetine HCL 20 MG CAP PO SCH (09:23)
[2023-09-18] MEDS: ASPIRIN 81 MG ECTAB PO SCH (09:23)
[2023-09-18] MEDS: ADVANCED PROBIOTIC 1250 MG CAPSULE PO SCH (09:23)
[2023-09-18] MEDS: ISOSORBIDE MONO EXTENDED REL 30 MG TABCR PO SCH (09:23)
[2023-09-18 09:37] LABS: Hematocrit (blood only) 38.8 % (42.0-52.0); Hemoglobin 12.7 g/dl (14.0-18.0); Mean Corpuscular Hemoglobin 28.4 pg (25.0-34.0); Mean Corpuscular Hgb Conc 32.7 g/dL (32.0-36.0); Mean Corpuscular Volume 86.8 fL (80.0-100.0); Platelet Count 235 K/uL (130-400); RDW Coefficient of Variation 13.5 % (11.5-14.5); RDW Standard Deviation 42.2 fL (36.4-46.3); Red Blood Count 4.47 M/uL (4.70-6.10); White Blood Count 4.91 K/ul (4.8-10.8)
[2023-09-18 09:54] LABS: BUN Creatinine Ratio 13.5 (10-20); Calcium 8.5 mg/dl (8.6-10.3); Creatinine Clr Calc Pharmacy 87.8 ml/min; Est GFR (African American) 98.9 ml/min; Est GFR (Non-African American) 85.3 ml/min; Magnesium 1.8 mg/dl (1.7-2.4); Phosphorus 3.1 mg/dl (2.5-4.9); Potassium 3.6 mmol/L (3.5-5.1)
[2023-09-18] MEDS: DAPTOmycin 450 MG in SYRINGE 0 ML IV SCH (18:25)
[2023-09-18] MEDS: LATANOPROST 0.005% OP SOLN 2.5 ML BTL OPB SCH (20:18)
[2023-09-18] MEDS: DOXAZosin MESYLATE 4 MG TAB PO SCH (20:18)
[2023-09-19] MEDS: cefTRIAXone SODIUM 2,000 MG in DEXTROSE 5 % MINI-B 50 ML IV SCH (05:06)
[2023-09-19 08:06] LABS: Hematocrit (blood only) 35.7 % (42.0-52.0); Hemoglobin 11.8 g/dl (14.0-18.0); Mean Corpuscular Hemoglobin 28.2 pg (25.0-34.0); Mean Corpuscular Hgb Conc 33.1 g/dL (32.0-36.0); Mean Corpuscular Volume 85.4 fL (80.0-100.0); Platelet Count 253 K/uL (130-400); RDW Coefficient of Variation 13.3 % (11.5-14.5); RDW Standard Deviation 41.6 fL (36.4-46.3); Red Blood Count 4.18 M/uL (4.70-6.10); White Blood Count 5.38 K/ul (4.8-10.8)
[2023-09-19 08:30] LABS: BUN Creatinine Ratio 17.4 (10-20); Calcium 8.6 mg/dl (8.6-10.3); Creatinine Clr Calc Pharmacy 94.2 ml/min; Est GFR (African American) 101.8 ml/min; Est GFR (Non-African American) 87.8 ml/min; Potassium 3.8 mmol/L (3.5-5.1)
[2023-09-19] MEDS: INSULIN ASPART PER UNIT CHARGE SC SCH ×4 (08:53→20:58)
[2023-09-19] MEDS: ISOSORBIDE MONO EXTENDED REL 30 MG TABCR PO SCH (08:55)
[2023-09-19] MEDS: FERROUS GLUCONATE 324 MG TAB PO SCH (08:55)
[2023-09-19] MEDS: ADVANCED PROBIOTIC 1250 MG CAPSULE PO SCH (08:55)
[2023-09-19] MEDS: CLOPIDOGREL BISULFATE 75 MG TAB PO SCH (08:56)
[2023-09-19] MEDS: METOPROLOL TARTRATE 25 MG TAB PO SCH ×2 (08:56→20:58)
[2023-09-19] MEDS: FLUoxetine HCL 20 MG CAP PO SCH (08:56)
[2023-09-19] MEDS: ASPIRIN 81 MG ECTAB PO SCH (08:56)
[2023-09-19] MEDS: ENOXAPARIN INJ 40 MG/0.4 ML SYR SQ SCH (08:57)
[2023-09-19] MEDS: FLUTICASONE FUROATE 200MCG 14 PUFFS/INHALER INH SCH (08:57)
[2023-09-19] MEDS: FAMOTIDINE 20 MG TAB PO SCH ×2 (08:58→20:58)
--- NOTE | 2023-09-19 09:03 | Hospitalist Progress Note ---
Date of Service September 19, 2023 Assessment & Plan (1) Complicated urinary tract infection: (2) Chronic indwelling Linares catheter: (3) BPH (benign prostatic hyperplasia): (4) MRSA (methicillin resistant staph aureus) culture positive: Plan: Catheter associated complicated urinary tract infection Patient presenting from [facility] for evaluation and treatment of polymicrobial UTI requiring IV antibiotics. Patient with history of BPH with chronic indwelling Linares catheter. Patient was complaining of dysuria and urine culture was obtained on 09/10 which grew Klebsiella, MRSA, Enterococcus faecalis Does not appear septic, afebrile, no leukocytosis S/p Dapto and cefepime in the ED. Sensitivities reviewed, continued with IV ceftriaxone and IV daptomycin Catheter exchanged in ED Urology consulted (patient was inquiring if Linares catheter can be removed - per report). Per urology, can attempt avoiding trial. ID consulted urine culture from ED - multiple organisms, will obtain a new sample blood culture - 10/28 coag negat staph not lugd. - likely contaminant 09/18 - Linares removed and pt is voiding Follow urine cultx and discuss w/ ID 09/19 Pt is incontinent and now wants Linares cath back - order placed (5) CAD (coronary artery disease): Plan: Appears stable, no reports of chest pain Continue ASA and beta-mynor. Holding statin while on daptomycin therapy. (6) Chronic diastolic CHF (congestive heart failure): Plan: Appears euvolemic Continue home dose Bumex (7) Diabetes: Plan: Required insulin in the past, diabetes currently diet controlled Hgb A1c 5.2 05/2023 NovoLog per protocol while hospitalized (8) Anemia: Plan: Chronic, stable Continue iron replacement DVT PROPHYLAXIS SQ Lovenox Admission and Anticipated Discharge Date Admission Date: September 15, 2023 Subjective Pt seen in follow up of complicated UTI, has chronic Linares catheter Urology and ID consulted Pt currently laying in bed in NAD Linares catheter was removed however pt incontinent and so now Linares is back in Currently denies fever, chills, chest pain, shortness of breath Denies any issues w/ catheter Review of Systems Review of Systems: All systems reviewed & are unremarkable except as noted in Subjective Physical Exam Physical Exam: General Appearance:Moderately built and nourished, no apparent distress Head: normocephalic, Atraumatic,+Nasal deformity Eyes: normal inspection, EOMI Neck: supple, Trachea midline Respiratory/Chest: Decreased breath sounds, CTA, No accessory muscle use Cardiovascular: S1, S2, No murmur Abdomen/GI:Soft, Non tender, Bowel sounds present Extremities/Musculoskeletal:normal inspection, no edema Neurologic/Psych:AAOX3, grossly no focal neurological deficits ,+ significant hearing impairment Skin: normal color, warm Results & Data Results & Data Vital Signs (Past 12 Hours) Vital Signs Temp Pulse Resp BP Pulse Ox O2 Del Method 09/19/23 07:40 36.5 C 53 L 18 144/77 H 97 Room Air 09/18/23 22:39 36.3 C L 63 18 160/78 H 95 Room Air Laboratory Results 09/19/23 09/19/23 09/18/23 Range/Units 07:38 07:36 20:18 WBC 5.38 (4.8-10.8) K/ul RBC 4.18 L (4.70-6.10) M/uL Hgb 11.8 L (14.0-18.0) g/dl Hct 35.7 L (42.0-52.0) % MCV 85.4 (80.0-100.0) fL MCH 28.2 (25.0-34.0) pg MCHC 33.1 (32.0-36.0) g/dL RDW Std Deviation 41.6 (36.4-46.3) fL RDW Coeff of Sandrita 13.3 (11.5-14.5) % Plt Count 253 (130-400) K/uL MPV 10.0 (9.4-12.4) fL Sodium 136 (136-145) mmol/L Potassium 3.8 (3.5-5.1) mmol/L Chloride 105 (98-107) mmol/L Carbon Dioxide 26 (21-32) mmol/L Anion Gap 5 (3-11) BUN 12 (6-23) mg/dl Creatinine 0.69 (0.6-1.4) mg/dl Est Cr Clr Drug Dosing 94.2 ml/min Est GFR ( Amer) 101.8 ml/min Est GFR (Non-Af Amer) 87.8 ml/min BUN/Creatinine Ratio 17.4 (10-20) Glucose 93 (70-99(Fasting)) mg/dl POC Glucose 86 95 (70-99) mg/dl Calcium 8.6 (8.6-10.3) mg/dl Phosphorus (2.5-4.9) mg/dl Magnesium (1.7-2.4) mg/dl 09/18/23 09/18/23 09/18/23 Range/Units 16:37 11:26 09:06 WBC 4.91 (4.8-10.8) K/ul RBC 4.47 L (4.70-6.10) M/uL Hgb 12.7 L (14.0-18.0) g/dl Hct 38.8 L (42.0-52.0) % MCV 86.8 (80.0-100.0) fL MCH 28.4 (25.0-34.0) pg MCHC 32.7 (32.0-36.0) g/dL RDW Std Deviation 42.2 (36.4-46.3) fL RDW Coeff of Sandrita 13.5 (11.5-14.5) % Plt Count 235 (130-400) K/uL MPV 10.0 (9.4-12.4) fL Sodium 138 (136-145) mmol/L Potassium 3.6 (3.5-5.1) mmol/L Chloride 105 (98-107) mmol/L Carbon Dioxide 27 (21-32) mmol/L Anion Gap 6 (3-11) BUN 10 (6-23) mg/dl Creatinine 0.74 (0.6-1.4) mg/dl Est Cr Clr Drug Dosing 87.8 ml/min Est GFR ( Amer) 98.9 ml/min Est GFR (Non-Af Amer) 85.3 ml/min BUN/Creatinine Ratio 13.5 (10-20) Glucose 117 H (70-99(Fasting)) mg/dl POC Glucose 112 H 93 (70-99) mg/dl Calcium 8.5 L (8.6-10.3) mg/dl Phosphorus 3.1 (2.5-4.9) mg/dl Magnesium 1.8 (1.7-2.4) mg/dl Medications Administered Current Inpatient Medications Acetaminophen (Acetaminophen 325 Mg Tab) 650 mg PO Q4H PRN PRN Reason: pain/fever Stop: 10/16/23 02:03 Last Admin: 09/17/23 20:51 Dose: 650 mg Aspirin (Aspirin 81 Mg Ectab) 81 mg PO DAILY [facility] Stop: 10/16/23 08:59 Last Admin: 09/19/23 08:56 Dose: 81 mg Bumetanide (Bumetanide 1 Mg Tab) 0.5 mg PO MoWeFr@0900 [facility] Stop: 10/17/23 08:59 Last Admin: 09/17/23 08:26 Dose: 0.5 mg Clopidogrel Bisulfate (Clopidogrel Bisulfate 75 Mg Tab) 75 mg PO DAILY [facility] Stop: 10/16/23 08:59 Last Admin: 09/19/23 08:56 Dose: 75 mg Dextrose (Dextrose 50% 50 Ml Syringe) 25 - 50 ml IV UD PRN; Protocol PRN Reason: Hypoglycemia Protocol Stop: 10/16/23 02:03 Doxazosin Mesylate (Doxazosin Mesylate 4 Mg Tab) 8 mg PO HS [facility] Stop: 10/16/23 02:03 Last Admin: 09/18/23 20:18 Dose: 8 mg Enoxaparin Sodium (Enoxaparin Inj 40 Mg/0.4 Ml Syr) 40 mg SQ Q24H [facility] Stop: 10/16/23 08:59 Last Admin: 09/19/23 08:57 Dose: 40 mg Famotidine (Famotidine 20 Mg Tab) 20 mg PO BID [facility] Stop: 10/16/23 02:03 Last Admin: 09/19/23 08:58 Dose: 20 mg Ferrous Gluconate (Ferrous Gluconate 324 Mg Tab) 324 mg PO DAILY [facility] Stop: 10/16/23 08:59 Last Admin: 09/19/23 08:55 Dose: 324 mg Fluoxetine HCl (Fluoxetine Hcl 20 Mg Cap) 20 mg PO DAILY [facility] Stop: 10/16/23 08:59 Last Admin: 09/19/23 08:56 Dose: 20 mg Fluticasone Furoate (Fluticasone Furoate 200mcg 14 Puffs/Inhaler) 1 puffs INH DAILY [facility] Stop: 10/16/23 08:59 Last Admin: 09/19/23 08:57 Dose: 1 puffs Glucagon (Glucagon For Inj 1 Mg Vial) 1 mg SQ UD PRN; Protocol PRN Reason: Hypoglycemia Protocol Stop: 10/16/23 02:03 Glucose (Glucose 10 Tab/Tube) 4 - 8 tab PO UD PRN; Protocol PRN Reason: Hypoglycemia Treatment Stop: 10/16/23 02:03 Glucose (Glucose 40% Gel 15 Gm Tube) 15 - 30 gm PO UD PRN; Protocol PRN Reason: Hypoglycemia Protocol Stop: 10/16/23 02:03 Ceftriaxone Sodium 2,000 mg/ (Dextrose) 50 mls @ 100 mls/hr IV Q24H [facility]; Protocol Stop: 09/26/23 05:59 Last Infusion: 09/19/23 05:57 Dose: Infused Daptomycin 450 mg/ Syringe 9 mls @ 4.5 mls/min IV Q24H [facility]; Protocol Stop: 09/26/23 17:59 Last Admin: 09/18/23 18:25 Dose: 4.5 mls/min Insulin Aspart (Insulin Aspart Per Unit Charge) 0 units SC ACHS [facility] Stop: 10/16/23 02:03 Last Admin: 09/19/23 08:53 Dose: Not Given Isosorbide Mononitrate (Isosorbide [place] Extended Rel 30 Mg Tabcr) 30 mg PO DAILY [facility] Stop: 10/16/23 08:59 Last Admin: 09/19/23 08:55 Dose: 30 mg Lactobacillus Acidophilus (Advanced Probiotic 1250 Mg Capsule) 2 cap PO DAILY [facility] Stop: 10/16/23 08:59 Last Admin: 09/19/23 08:55 Dose: 2 cap Latanoprost (Latanoprost 0.005% Op Soln 2.5 Ml Btl) 1 drops OPB PM [facility] Stop: 10/16/23 02:03 Last Admin: 09/18/23 20:18 Dose: 1 drops Metoprolol Tartrate (Metoprolol Tartrate 25 Mg Tab) 12.5 mg PO BID [facility] Stop: 10/16/23 02:03 Last Admin: 09/19/23 08:56 Dose: 12.5 mg Miscellaneous (Carbohydrates For Hypoglycemia ) 15 - 30 gm PO UD PRN PRN Reason: Hypoglycemia Protocol Stop: 10/16/23 02:03 (8) Anemia Anemia type: unspecified type Qualified Code(s): D64.9 - Anemia, unspecified
[2023-09-19] MEDS: DAPTOmycin 450 MG in SYRINGE 0 ML IV SCH (18:36)
[2023-09-19] MEDS: DOXAZosin MESYLATE 4 MG TAB PO SCH (20:57)
[2023-09-19] MEDS: LATANOPROST 0.005% OP SOLN 2.5 ML BTL OPB SCH (20:59)
[2023-09-20] MEDS: cefTRIAXone SODIUM 2,000 MG in DEXTROSE 5 % MINI-B 50 ML IV SCH (05:26)
[2023-09-20] MEDS: CLOPIDOGREL BISULFATE 75 MG TAB PO SCH (08:52)
[2023-09-20] MEDS: ASPIRIN 81 MG ECTAB PO SCH (08:52)
[2023-09-20] MEDS: BUMETANIDE 1 MG TAB PO SCH (08:52)
[2023-09-20] MEDS: FLUoxetine HCL 20 MG CAP PO SCH (08:53)
[2023-09-20] MEDS: ENOXAPARIN INJ 40 MG/0.4 ML SYR SQ SCH (08:53)
[2023-09-20] MEDS: ADVANCED PROBIOTIC 1250 MG CAPSULE PO SCH (08:53)
[2023-09-20] MEDS: FAMOTIDINE 20 MG TAB PO SCH ×2 (08:53→20:49)
[2023-09-20] MEDS: FLUTICASONE FUROATE 200MCG 14 PUFFS/INHALER INH SCH (08:53)
[2023-09-20] MEDS: ISOSORBIDE MONO EXTENDED REL 30 MG TABCR PO SCH (08:53)
[2023-09-20] MEDS: FERROUS GLUCONATE 324 MG TAB PO SCH (08:53)
[2023-09-20] MEDS: METOPROLOL TARTRATE 25 MG TAB PO SCH ×2 (08:54→20:47)
[2023-09-20] MEDS: INSULIN ASPART PER UNIT CHARGE SC SCH ×4 (09:02→20:47)
--- NOTE | 2023-09-20 13:11 | Hospitalist Progress Note ---
Date of Service September 20, 2023 Assessment & Plan (1) Complicated urinary tract infection: (2) Chronic indwelling Linares catheter: (3) BPH (benign prostatic hyperplasia): (4) MRSA (methicillin resistant staph aureus) culture positive: Plan: Catheter associated complicated urinary tract infection Patient presenting from [facility] for evaluation and treatment of polymicrobial UTI requiring IV antibiotics. Patient with history of BPH with chronic indwelling Linares catheter. Patient was complaining of dysuria and urine culture was obtained on 09/10 which grew Klebsiella, MRSA, Enterococcus faecalis Does not appear septic, afebrile, no leukocytosis S/p Dapto and cefepime in the ED. Sensitivities reviewed, continued with IV ceftriaxone and IV daptomycin Catheter exchanged in ED Urology consulted (patient was inquiring if Linares catheter can be removed - per report). Per urology, can attempt avoiding trial. ID consulted urine culture from ED - multiple organisms, will obtain a new sample blood culture - 10/28 coag negat staph not lugd. - likely contaminant 09/18 - Linares removed and pt is voiding Follow urine cultx and discuss w/ ID 09/19 Pt is incontinent and now wants Linares cath back - order placed 09/20 Doing well with Linares. Discussed w/ ID - will treat for 7 days (5) CAD (coronary artery disease): Plan: Appears stable, no reports of chest pain Continue ASA and beta-mynor. Holding statin while on daptomycin therapy. (6) Chronic diastolic CHF (congestive heart failure): Plan: Appears euvolemic Continue home dose Bumex (7) Diabetes: Plan: Required insulin in the past, diabetes currently diet controlled Hgb A1c 5.2 05/2023 NovoLog per protocol while hospitalized (8) Anemia: Plan: Chronic, stable Continue iron replacement DVT PROPHYLAXIS SQ Lovenox Admission and Anticipated Discharge Date Admission Date: September 15, 2023 Subjective Pt seen in follow up of complicated UTI, has chronic Linares catheter Urology and ID consulted Pt currently laying in bed in NAD Linares catheter was removed however pt incontinent and so now Linares is back in. Pt denies any issues w/ catheter Denies fever, chills, chest pain, shortness of breath Discussed w/ ID today, will treat for 7 days. Review of Systems Review of Systems: All systems reviewed & are unremarkable except as noted in Subjective Physical Exam Physical Exam: General Appearance:Moderately built and nourished, no apparent distress Head: normocephalic, Atraumatic,+Nasal deformity Eyes: normal inspection, EOMI Neck: supple, Trachea midline Respiratory/Chest: Decreased breath sounds, CTA, No accessory muscle use Cardiovascular: S1, S2, No murmur Abdomen/GI:Soft, Non tender, Bowel sounds present Extremities/Musculoskeletal:normal inspection, no edema Neurologic/Psych:AAOX3, grossly no focal neurological deficits ,+ significant hearing impairment Skin: normal color, warm Results & Data Results & Data Vital Signs (Past 12 Hours) Vital Signs Temp Pulse Resp BP Pulse Ox O2 Del Method 09/20/23 08:55 36.6 C 53 L 16 156/80 H 92 Room Air Laboratory Results 09/20/23 09/20/23 09/19/23 Range/Units 11:39 07:42 20:57 POC Glucose 121 H 95 95 (70-99) mg/dl 09/19/23 Range/Units 16:37 POC Glucose 93 (70-99) mg/dl Medications Administered Current Inpatient Medications Acetaminophen (Acetaminophen 325 Mg Tab) 650 mg PO Q4H PRN PRN Reason: pain/fever Stop: 10/16/23 02:03 Last Admin: 09/17/23 20:51 Dose: 650 mg Aspirin (Aspirin 81 Mg Ectab) 81 mg PO DAILY [facility] Stop: 10/16/23 08:59 Last Admin: 09/20/23 08:52 Dose: 81 mg Bumetanide (Bumetanide 1 Mg Tab) 0.5 mg PO MoWeFr@0900 [facility] Stop: 10/17/23 08:59 Last Admin: 09/20/23 08:52 Dose: 0.5 mg Clopidogrel Bisulfate (Clopidogrel Bisulfate 75 Mg Tab) 75 mg PO DAILY [facility] Stop: 10/16/23 08:59 Last Admin: 09/20/23 08:52 Dose: 75 mg Dextrose (Dextrose 50% 50 Ml Syringe) 25 - 50 ml IV UD PRN; Protocol PRN Reason: Hypoglycemia Protocol Stop: 10/16/23 02:03 Doxazosin Mesylate (Doxazosin Mesylate 4 Mg Tab) 8 mg PO HS [facility] Stop: 10/16/23 02:03 Last Admin: 09/19/23 20:57 Dose: 8 mg Enoxaparin Sodium (Enoxaparin Inj 40 Mg/0.4 Ml Syr) 40 mg SQ Q24H [facility] Stop: 10/16/23 08:59 Last Admin: 09/20/23 08:53 Dose: 40 mg Famotidine (Famotidine 20 Mg Tab) 20 mg PO BID [facility] Stop: 10/16/23 02:03 Last Admin: 09/20/23 08:53 Dose: 20 mg Ferrous Gluconate (Ferrous Gluconate 324 Mg Tab) 324 mg PO DAILY [facility] Stop: 10/16/23 08:59 Last Admin: 09/20/23 08:53 Dose: 324 mg Fluoxetine HCl (Fluoxetine Hcl 20 Mg Cap) 20 mg PO DAILY [facility] Stop: 10/16/23 08:59 Last Admin: 09/20/23 08:53 Dose: 20 mg Fluticasone Furoate (Fluticasone Furoate 200mcg 14 Puffs/Inhaler) 1 puffs INH DAILY [facility] Stop: 10/16/23 08:59 Last Admin: 09/20/23 08:53 Dose: 1 puffs Glucagon (Glucagon For Inj 1 Mg Vial) 1 mg SQ UD PRN; Protocol PRN Reason: Hypoglycemia Protocol Stop: 10/16/23 02:03 Glucose (Glucose 10 Tab/Tube) 4 - 8 tab PO UD PRN; Protocol PRN Reason: Hypoglycemia Treatment Stop: 10/16/23 02:03 Glucose (Glucose 40% Gel 15 Gm Tube) 15 - 30 gm PO UD PRN; Protocol PRN Reason: Hypoglycemia Protocol Stop: 10/16/23 02:03 Ceftriaxone Sodium 2,000 mg/ (Dextrose) 50 mls @ 100 mls/hr IV Q24H [facility]; Protocol Stop: 09/22/23 09:00 Last Infusion: 09/20/23 06:16 Dose: Infused Daptomycin 450 mg/ Syringe 9 mls @ 4.5 mls/min IV Q24H [facility]; Protocol Stop: 09/21/23 23:59 Last Admin: 09/19/23 18:36 Dose: 4.5 mls/min Insulin Aspart (Insulin Aspart Per Unit Charge) 0 units SC ACHS [facility] Stop: 10/16/23 02:03 Last Admin: 09/20/23 12:12 Dose: 3 units Isosorbide Mononitrate (Isosorbide [place] Extended Rel 30 Mg Tabcr) 30 mg PO DAILY [facility] Stop: 10/16/23 08:59 Last Admin: 09/20/23 08:53 Dose: 30 mg Lactobacillus Acidophilus (Advanced Probiotic 1250 Mg Capsule) 2 cap PO DAILY [facility] Stop: 10/16/23 08:59 Last Admin: 09/20/23 08:53 Dose: 2 cap Latanoprost (Latanoprost 0.005% Op Soln 2.5 Ml Btl) 1 drops OPB PM [facility] Stop: 10/16/23 02:03 Last Admin: 09/19/23 20:59 Dose: 1 drops Metoprolol Tartrate (Metoprolol Tartrate 25 Mg Tab) 12.5 mg PO BID [facility] Stop: 10/16/23 02:03 Last Admin: 09/20/23 08:54 Dose: 12.5 mg Miscellaneous (Carbohydrates For Hypoglycemia ) 15 - 30 gm PO UD PRN PRN Reason: Hypoglycemia Protocol Stop: 10/16/23 02:03 (8) Anemia Anemia type: unspecified type Qualified Code(s): D64.9 - Anemia, unspecified
[2023-09-20] MEDS: DAPTOmycin 450 MG in SYRINGE 0 ML IV SCH (17:00)
[2023-09-20] MEDS: LATANOPROST 0.005% OP SOLN 2.5 ML BTL OPB SCH (20:49)
[2023-09-20] MEDS: DOXAZosin MESYLATE 4 MG TAB PO SCH (20:49)
[2023-09-21] MEDS: cefTRIAXone SODIUM 2,000 MG in DEXTROSE 5 % MINI-B 50 ML IV SCH (06:10)
[2023-09-21] MEDS: FAMOTIDINE 20 MG TAB PO SCH ×2 (09:09→20:58)
[2023-09-21] MEDS: ENOXAPARIN INJ 40 MG/0.4 ML SYR SQ SCH (09:09)
[2023-09-21] MEDS: METOPROLOL TARTRATE 25 MG TAB PO SCH ×2 (09:10→20:58)
[2023-09-21] MEDS: ASPIRIN 81 MG ECTAB PO SCH (09:11)
[2023-09-21] MEDS: CLOPIDOGREL BISULFATE 75 MG TAB PO SCH (09:11)
[2023-09-21] MEDS: ADVANCED PROBIOTIC 1250 MG CAPSULE PO SCH (09:11)
[2023-09-21] MEDS: FERROUS GLUCONATE 324 MG TAB PO SCH (09:11)
[2023-09-21] MEDS: FLUTICASONE FUROATE 200MCG 14 PUFFS/INHALER INH SCH (09:12)
[2023-09-21] MEDS: FLUoxetine HCL 20 MG CAP PO SCH (09:12)
[2023-09-21] MEDS: ISOSORBIDE MONO EXTENDED REL 30 MG TABCR PO SCH (09:12)
[2023-09-21] MEDS: INSULIN ASPART PER UNIT CHARGE SC SCH ×4 (09:15→20:36)
[2023-09-21] MEDS: DAPTOmycin 450 MG in SYRINGE 0 ML IV SCH (17:30)
--- NOTE | 2023-09-21 18:10 | Hospitalist Progress Note ---
Date of Service September 21, 2023 Assessment & Plan (1) Complicated urinary tract infection: (2) Chronic indwelling Linares catheter: (3) BPH (benign prostatic hyperplasia): (4) MRSA (methicillin resistant staph aureus) culture positive: Plan: Catheter associated complicated urinary tract infection Patient presenting from [facility] for evaluation and treatment of polymicrobial UTI requiring IV antibiotics. Patient with history of BPH with chronic indwelling Linares catheter. Patient was complaining of dysuria and urine culture was obtained on 09/10 which grew Klebsiella, MRSA, Enterococcus faecalis Does not appear septic, afebrile, no leukocytosis S/p Dapto and cefepime in the ED. Sensitivities reviewed, continued with IV ceftriaxone and IV daptomycin Catheter exchanged in ED Urology consulted (patient was inquiring if Linares catheter can be removed - per report). Per urology, can attempt avoiding trial. ID consulted urine culture from ED - multiple organisms, will obtain a new sample blood culture - 10/28 coag negat staph not lugd. - likely contaminant 09/18 - Linares removed and pt is voiding Follow urine cultx and discuss w/ ID 09/19 Pt is incontinent and now wants Linares cath back - order placed 09/20 Doing well with Linares. Discussed w/ ID - will treat for 7 days 09/21 Cont. abx - plan to DC tmrw AM after his abx dose (5) CAD (coronary artery disease): Plan: Appears stable, no reports of chest pain Continue ASA and beta-mynor. Holding statin while on daptomycin therapy. (6) Chronic diastolic CHF (congestive heart failure): Plan: Appears euvolemic Continue home dose Bumex (7) Diabetes: Plan: Required insulin in the past, diabetes currently diet controlled Hgb A1c 5.2 05/2023 NovoLog per protocol while hospitalized (8) Anemia: Plan: Chronic, stable Continue iron replacement DVT PROPHYLAXIS SQ Lovenox Admission and Anticipated Discharge Date Admission Date: September 15, 2023 Subjective Pt seen in follow up of complicated UTI, has chronic Linares catheter Urology and ID consulted Pt currently laying in bed in NAD Linares catheter was removed however pt incontinent and so now Linares is back in. Pt denies any issues w/ catheter Denies fever, chills, chest pain, shortness of breath Discussed w/ ID yesterday- will treat for 7 days. Plan to DC tmrw AM Review of Systems Review of Systems: All systems reviewed & are unremarkable except as noted in Subjective Physical Exam Physical Exam: General Appearance:Moderately built and nourished, no apparent distress Head: normocephalic, Atraumatic,+Nasal deformity Eyes: normal inspection, EOMI Neck: supple, Trachea midline Respiratory/Chest: Decreased breath sounds, CTA, No accessory muscle use Cardiovascular: S1, S2, No murmur Abdomen/GI:Soft, Non tender, Bowel sounds present Extremities/Musculoskeletal:normal inspection, no edema Neurologic/Psych:AAOX3, grossly no focal neurological deficits ,+ significant hearing impairment Skin: normal color, warm Results & Data Results & Data Vital Signs (Past 12 Hours) Vital Signs Temp Pulse Resp BP Pulse Ox O2 Del Method 09/21/23 16:32 36.6 C 54 L 16 134/75 95 Room Air 09/21/23 08:03 36.6 C 66 16 127/69 96 Room Air Medications Administered Current Inpatient Medications Acetaminophen (Acetaminophen 325 Mg Tab) 650 mg PO Q4H PRN PRN Reason: pain/fever Stop: 10/16/23 02:03 Last Admin: 09/17/23 20:51 Dose: 650 mg Aspirin (Aspirin 81 Mg Ectab) 81 mg PO DAILY [facility] Stop: 10/16/23 08:59 Last Admin: 09/21/23 09:11 Dose: 81 mg Bumetanide (Bumetanide 1 Mg Tab) 0.5 mg PO MoWeFr@0900 [facility] Stop: 10/17/23 08:59 Last Admin: 09/20/23 08:52 Dose: 0.5 mg Clopidogrel Bisulfate (Clopidogrel Bisulfate 75 Mg Tab) 75 mg PO DAILY [facility] Stop: 10/16/23 08:59 Last Admin: 09/21/23 09:11 Dose: 75 mg Dextrose (Dextrose 50% 50 Ml Syringe) 25 - 50 ml IV UD PRN; Protocol PRN Reason: Hypoglycemia Protocol Stop: 10/16/23 02:03 Doxazosin Mesylate (Doxazosin Mesylate 4 Mg Tab) 8 mg PO HS [facility] Stop: 10/16/23 02:03 Last Admin: 09/20/23 20:49 Dose: 8 mg Enoxaparin Sodium (Enoxaparin Inj 40 Mg/0.4 Ml Syr) 40 mg SQ Q24H [facility] Stop: 10/16/23 08:59 Last Admin: 09/21/23 09:09 Dose: 40 mg Famotidine (Famotidine 20 Mg Tab) 20 mg PO BID [facility] Stop: 10/16/23 02:03 Last Admin: 09/21/23 09:09 Dose: 20 mg Ferrous Gluconate (Ferrous Gluconate 324 Mg Tab) 324 mg PO DAILY [facility] Stop: 10/16/23 08:59 Last Admin: 09/21/23 09:11 Dose: 324 mg Fluoxetine HCl (Fluoxetine Hcl 20 Mg Cap) 20 mg PO DAILY [facility] Stop: 10/16/23 08:59 Last Admin: 09/21/23 09:12 Dose: 20 mg Fluticasone Furoate (Fluticasone Furoate 200mcg 14 Puffs/Inhaler) 1 puffs INH DAILY [facility] Stop: 10/16/23 08:59 Last Admin: 09/21/23 09:12 Dose: 1 puffs Glucagon (Glucagon For Inj 1 Mg Vial) 1 mg SQ UD PRN; Protocol PRN Reason: Hypoglycemia Protocol Stop: 10/16/23 02:03 Glucose (Glucose 10 Tab/Tube) 4 - 8 tab PO UD PRN; Protocol PRN Reason: Hypoglycemia Treatment Stop: 10/16/23 02:03 Glucose (Glucose 40% Gel 15 Gm Tube) 15 - 30 gm PO UD PRN; Protocol PRN Reason: Hypoglycemia Protocol Stop: 10/16/23 02:03 Ceftriaxone Sodium 2,000 mg/ (Dextrose) 50 mls @ 100 mls/hr IV Q24H [facility]; Protocol Stop: 09/22/23 09:00 Last Infusion: 09/21/23 06:43 Dose: Infused Daptomycin 450 mg/ Syringe 9 mls @ 4.5 mls/min IV Q24H [facility]; Protocol Stop: 09/21/23 23:59 Last Admin: 09/21/23 17:30 Dose: 4.5 mls/min Insulin Aspart (Insulin Aspart Per Unit Charge) 0 units SC ACHS [facility] Stop: 10/16/23 02:03 Last Admin: 09/21/23 17:28 Dose: 2 units Isosorbide Mononitrate (Isosorbide [place] Extended Rel 30 Mg Tabcr) 30 mg PO DAILY [facility] Stop: 10/16/23 08:59 Last Admin: 09/21/23 09:12 Dose: 30 mg Lactobacillus Acidophilus (Advanced Probiotic 1250 Mg Capsule) 2 cap PO DAILY [facility] Stop: 10/16/23 08:59 Last Admin: 09/21/23 09:11 Dose: 2 cap Latanoprost (Latanoprost 0.005% Op Soln 2.5 Ml Btl) 1 drops OPB PM [facility] Stop: 10/16/23 02:03 Last Admin: 09/20/23 20:49 Dose: 1 drops Metoprolol Tartrate (Metoprolol Tartrate 25 Mg Tab) 12.5 mg PO BID [facility] Stop: 10/16/23 02:03 Last Admin: 09/21/23 09:10 Dose: 12.5 mg Miscellaneous (Carbohydrates For Hypoglycemia ) 15 - 30 gm PO UD PRN PRN Reason: Hypoglycemia Protocol Stop: 10/16/23 02:03 (8) Anemia Anemia type: unspecified type Qualified Code(s): D64.9 - Anemia, unspecified
[2023-09-21 20:49] VITALS: RESP 18
[2023-09-21] MEDS: DOXAZosin MESYLATE 4 MG TAB PO SCH (20:58)
[2023-09-21] MEDS: LATANOPROST 0.005% OP SOLN 2.5 ML BTL OPB SCH (20:59)
[2023-09-22] MEDS: cefTRIAXone SODIUM 2,000 MG in DEXTROSE 5 % MINI-B 50 ML IV SCH (05:50)
[2023-09-22 06:39] LABS: Est GFR (African American) 83.3 ml/min; Est GFR (Non-African American) 71.9 ml/min
[2023-09-22] MEDS: BUMETANIDE 1 MG TAB PO SCH (09:02)
[2023-09-22] MEDS: METOPROLOL TARTRATE 25 MG TAB PO SCH (09:02)
[2023-09-22] MEDS: CLOPIDOGREL BISULFATE 75 MG TAB PO SCH (09:03)
[2023-09-22] MEDS: FERROUS GLUCONATE 324 MG TAB PO SCH (09:03)
[2023-09-22] MEDS: ASPIRIN 81 MG ECTAB PO SCH (09:03)
[2023-09-22] MEDS: ISOSORBIDE MONO EXTENDED REL 30 MG TABCR PO SCH (09:04)
[2023-09-22] MEDS: ADVANCED PROBIOTIC 1250 MG CAPSULE PO SCH (09:04)
[2023-09-22] MEDS: FLUoxetine HCL 20 MG CAP PO SCH (09:04)
[2023-09-22] MEDS: ENOXAPARIN INJ 40 MG/0.4 ML SYR SQ SCH (09:05)
[2023-09-22] MEDS: FLUTICASONE FUROATE 200MCG 14 PUFFS/INHALER INH SCH (09:05)
[2023-09-22] MEDS: FAMOTIDINE 20 MG TAB PO SCH (09:06)
--- NOTE | 2023-09-22 10:05 | Discharge Summary ---
Date of Service September 22, 2023 Admission HPI Per Admitting Provider 82-year-old male incarcerated at [facility] with PMH CAD, BPH with chronic indwelling Linares catheter, HTN, chronic diastolic CHF, chronic anemia, diet- controlled diabetes, and other problems listed below who presents to the ED for evaluation of polymicrobial UTI. History obtained from the patient and review of records sent from [facility]. Patient was reporting burning with urination and urine culture was obtained on 09/10 that resulted with MRSA, Klebsiella, Enterococcus faecalis. Patient was referred to the ED for administration of IV antibiotics. Patient is a poor historian. Patient denies fevers and chills. No chest pain or shortness of breath. Denies lightheadedness, dizziness, diaphoresis, syncopal events. No abdominal pain, nausea, vomiting, diarrhea. Reports ongoing symptoms of acid reflux despite using Tums. In the ED, patient is hemodynamically stable and afebrile. Labs are unremarkable. Patient was given IV cefepime, IV Dapto, IVF. Admission Exam Per Admitting Provider General Appearance:Moderately built and nourished, no apparent distress Head: normocephalic, Atraumatic,+Nasal deformity Eyes: normal inspection, EOMI Neck: supple, Trachea midline Respiratory/Chest: Decreased breath sounds, CTA, No accessory muscle use Cardiovascular: S1, S2, No murmur Abdomen/GI:Soft, Non tender, Bowel sounds present Extremities/Musculoskeletal:normal inspection, no edema Neurologic/Psych:AAOX3, grossly no focal neurological deficits ,+ significant hearing impairment Skin: normal color, warm Principal Diagnosis Catheter-associated UTI Discharge Exam General Appearance:Moderately built and nourished, no apparent distress Head: normocephalic, Atraumatic,+Nasal deformity Eyes: normal inspection, EOMI Neck: supple Respiratory/Chest: Decreased breath sounds, CTA, No accessory muscle use Cardiovascular: S1, S2, No murmur Abdomen/GI:Soft, Non tender, Bowel sounds present Extremities/Musculoskeletal:normal inspection, no edema Neurologic/Psych:AAOX3, grossly no focal neurological deficits ,+ significant hearing impairment Skin: normal color, warm Discharge Data Allergies Allergy/AdvReac Type Severity Reaction Status Date / Time Sulfa (Sulfonamide Allergy Unknown ON SCI Verified 09/15/23 17:27 Antibiotics) [facility] MED LIST Consultations 09/15/23 18:38 ED Decision to Admit Stat 09/16/23 02:04 Consult Infectious Diseases Routine Consult Urology Routine Ordered Studies 09/17/23 US renal/blad retro comp Routine FINDINGS: Kidneys: The kidneys are normal in size and echotexture. The right kidney measures 11.6 cm in length and the left kidney measures 11.0 cm in length. There is no hydronephrosis. No shadowing renal calculi are identified. There is no sonographic evidence of contour deforming renal mass lesion. No perinephric fluid is identified. Bladder: The bladder is largely decompressed around a Linares catheter and not well evaluated. Ureteral jets were not seen. IMPRESSION: 1. The kidneys are normal in size and without hydronephrosis. 2. The bladder is decompressed around a Linares catheter and not well evaluated. Hospital Course (1) Complicated urinary tract infection: (2) Chronic indwelling Linares catheter: (3) BPH (benign prostatic hyperplasia): (4) MRSA (methicillin resistant staph aureus) culture positive: Catheter associated complicated urinary tract infection Patient presenting from [facility] for evaluation and treatment of polymicrobial UTI requiring IV antibiotics. Patient with history of BPH with chronic indwelling Linares catheter. Patient was complaining of dysuria and urine culture was obtained on 09/10 which grew Klebsiella, MRSA, Enterococcus faecalis Does not appear septic, afebrile, no leukocytosis S/p Dapto and cefepime in the ED. Sensitivities reviewed, continued with IV ceftriaxone and IV daptomycin Catheter exchanged in ED Urology consulted (patient was inquiring if Linares catheter can be removed - per report). Per urology, can attempt avoiding trial. ID consulted urine culture from ED - multiple organisms, will obtain a new sample blood culture - 10/28 coag negat staph not lugd. - likely contaminant 09/18 - Linares removed and pt is voiding Follow urine cultx and discuss w/ ID 09/19 Pt is incontinent and now wants Linares cath back - order placed 09/20 Doing well with Linares. Discussed w/ ID - will treat for 7 days 09/22 Pt finished abx treatment and discussed w/ / Claude at [facility] Gregory - pt will be discharged there today. (5) CAD (coronary artery disease): Appears stable, no reports of chest pain Continue ASA and beta-mynor. Holding statin while on daptomycin therapy. (6) Chronic diastolic CHF (congestive heart failure): Appears euvolemic Continue home dose Bumex (7) Diabetes: Required insulin in the past, diabetes currently diet controlled Hgb A1c 5.2 05/2023 NovoLog per protocol while hospitalized (8) Anemia: Chronic, stable Continue iron replacement DVT PROPHYLAXIS SQ Lovenox Total Time Total Time Spent Total Time Spent (In Minutes): 40 Discharge Plan Discharge Items [facility]position[facility] Reason For Visit: COMPLICATED UTI Discharge Diagnosis: Catheter-associated UTI Condition on Discharge: Fair Activity: Per Instructions section Non-emergency contact: Primary Care Provider Call non-emergency contact if: you have any medication questions and your symptoms worsen Follow-up/Referrals: Gregory MCCORMICK [Primary Care Provider] - Diet: Carb Consistent or DM2 Addtl Attending Provider Instructions: Follow up with your primary care physician and urologist. Addtl Maid Housekeeper Provider Instructions: Per urology - Please call the urology office at [phone] to arrange a follow-up visit. Pending Studies at Discharge: No Stand-Alone Forms: My [facility] Skilled Items Patient informed of condition?: Yes Discharge Level of Care: Other Communicable Disease: No Discharge Prognosis: Stable Lines: None Urinary Catheter: Yes Medications and DC Order Prescriptions: Continued latanoprost 0.005 % Drops 1 drp OPB PM isosorbide mononitrate 30 mg Tablet Extended Release 24 Hr 30 mg PO DAILY Rx Instructions: HOLD IF SBP < 90. clopidogrel [Plavix] 75 mg Tablet 75 mg PO DAILY aspirin 81 mg Tablet,Delayed Release (Dr/Ec) 81 mg PO DAILY doxazosin 8 mg Tablet 8 mg PO HS Rx Instructions: HOLD IF SBP < 90 fluoxetine 20 mg Tablet 20 mg PO DAILY albuterol sulfate 90 mcg/actuation Hfa Aerosol Inhaler 2 puff INHALATION QID PRN (Reason: Shortness Of Breath) rosuvastatin 10 mg Tablet 10 mg PO DAILY Alvesco 160 mcg/actuation Hfa Aerosol Inhaler 2 puff INHALATION BID ferrous gluconate 324 mg (38 mg iron) Tablet 324 mg PO DAILY bumetanide 0.5 mg Tablet 0.5 mg PO 3XWK Rx Instructions: MON, WED, & FRI. cholecalciferol (vitamin D3) [Vitamin D3] 25 mcg (1,000 unit) Capsule 25 mcg PO DAILY metoprolol tartrate 25 mg Tablet 12.5 mg PO BID Discharge Orders: Discharge Order (Routine); Ordered 09/22/23 Ordered By: Brad Byrd Admission Data Admit Date/Time: 09/15/23 18:50 Attending Provider: Brad Byrd Admit Provider: Deon Ortega Primary Care Provider: Gregory MCCORMICK Other Providers: Deon Ortega; Nestor Bolden; Talib Ramirez; Jesse Segal I.; Cj Rossi II; Jacqueline Ribeiro; Song Comer; Juan Cast; Susana Clark
[2023-09-22] MEDS: INSULIN ASPART PER UNIT CHARGE SC SCH ×3 (10:18→17:07)
[2023-09-22 15:36] VITALS: BP 138/71; PULSE 54; TEMP 98.6; O2SAT 93
== END 2023-09-22 20:41 | DRG 699 ==
LOC: ED 16:30 → SUATTDRO 18:50 → EDINP 18:50 → 3E 09-16 11:48
DX: Z86.14 Personal history of Methicillin resistant Staphylococcus aureus infection; J44.9 Chronic obstructive pulmonary disease, unspecified; Z87.440 Personal history of urinary (tract) infections; N40.0 Benign prostatic hyperplasia without lower urinary tract symptoms; R32 Unspecified urinary incontinence; I11.0 Hypertensive heart disease with heart failure; B96.1 Klebsiella pneumoniae [K. pneumoniae] as the cause of diseases classified elsewhere; Z79.82 Long term (current) use of aspirin; Y81.2 Prosthetic and other implants, materials and accessory general- and plastic-surgery devices associated with adverse incidents; B95.62 Methicillin resistant Staphylococcus aureus infection as the cause of diseases classified elsewhere; Y92.149 Unspecified place in prison as the place of occurrence of the external cause; Z88.2 Allergy status to sulfonamides; I50.32 Chronic diastolic (congestive) heart failure; T83.511A Infection and inflammatory reaction due to indwelling urethral catheter, initial encounter; D64.9 Anemia, unspecified; N39.0 Urinary tract infection, site not specified; E11.9 Type 2 diabetes mellitus without complications; I25.10 Atherosclerotic heart disease of native coronary artery without angina pectoris; Z79.02 Long term (current) use of antithrombotics/antiplatelets; B95.2 Enterococcus as the cause of diseases classified elsewhere